=== PATIENT | male | born 1960 | race Caucasian/White ===

== ENCOUNTER → 2020-10-03 13:09 | Outpatient (BNVA) | payer OTHER, SELFPAY | PROVIDERS: PCP Nurse Practitioner Family; Visit Provider Orthopaedic Surgery | DX: M16.12 Unilateral primary osteoarthritis, left hip (principal) | CPT/HCPCS: 99212 ==

== ENCOUNTER → 2020-11-13 12:44 | Outpatient (BNVA) | payer OTHER, SELFPAY | PROVIDERS: PCP Nurse Practitioner Family; Visit Provider Orthopaedic Surgery | DX: Z01.812 Encounter for preprocedural laboratory examination (principal); Z01.810 Encounter for preprocedural cardiovascular examination ==

== ENCOUNTER 2020-12-08 16:46 | Emergency (ER) | payer OTHER, SELFPAY ==
[2020-12-08 16:51] VITALS: BP 171/96; PULSE 95; RESP 18; TEMP 36.8; O2SAT 98; BMI 22.7
--- NOTE | 2020-12-08 17:38 | PC.NURSE ---
PT APPROACHED THIS RN, REPORTED THE FB IN THROAT SUDDENLY PASSED AND HE FELT 100% RESOLVED, LEAVING WITHOUT TREATMENT.
== END 2020-12-08 17:39 | disposition left against medical advice (07) ==
PROVIDERS: Emergency Provider Emergency Medicine; PCP Nurse Practitioner Family
DX: R09.89 Other specified symptoms and signs involving the circulatory and respiratory systems (principal)
CPT/HCPCS: 99281; 99282

== ENCOUNTER → 2020-12-13 10:58 | Outpatient (BNVA) | payer OTHER, SELFPAY | PROVIDERS: Visit Provider Physician Assistant | DX: M25.552 Pain in left hip (principal); G89.29 Other chronic pain | CPT/HCPCS: 99212 ==

== ENCOUNTER 2020-12-16 13:11 | Outpatient (REF) | payer OTHER, SELFPAY ==
--- NOTE | ~2020-12-16 | XR_ITS ---
EXAMINATION: PELVIS AND LEFT HIP X-RAY CLINICAL INFORMATION: Pain COMPARISON: Previous x-ray was recent December 2019 TECHNIQUE: One view of the pelvis and 2 views of the left hip FINDINGS: There is severe left hip arthritis with joint space narrowing, osteophyte formation and subchondral cyst formation. There is mild arthritis at the right hip joint. Bones of the pelvis are unremarkable. There are degenerative changes of the lower lumbar spine. There is evidence of atherosclerotic disease. XR/XR pelvis 1-2V IMPRESSION: Severe left hip arthritis.
--- NOTE | ~2020-12-16 | XR_ITS ---
EXAMINATION: PELVIS AND LEFT HIP X-RAY CLINICAL INFORMATION: Pain COMPARISON: Previous x-ray was recent December 2019 TECHNIQUE: One view of the pelvis and 2 views of the left hip FINDINGS: There is severe left hip arthritis with joint space narrowing, osteophyte formation and subchondral cyst formation. There is mild arthritis at the right hip joint. Bones of the pelvis are unremarkable. There are degenerative changes of the lower lumbar spine. There is evidence of atherosclerotic disease. XR/XR hip LT min 2V IMPRESSION: Severe left hip arthritis.
== END 2020-12-16 13:12 | disposition home or self-care (01) ==
LOC: HO.HOSX 13:11
PROVIDERS: Visit Provider Orthopaedic Surgery
DX: Z01.818 Encounter for other preprocedural examination (principal); M16.11 Unilateral primary osteoarthritis, right hip
CPT/HCPCS: 72170; 73502

== ENCOUNTER 2020-12-17 06:02 | Inpatient (IN) | payer OTHER, SELFPAY ==
--- NOTE | 2020-11-14 10:10 | ECG_ITS ---
Test Reason : Z01.818 PREOP Blood Pressure : / mmHG Vent. Rate : 076 BPM Atrial Rate : 076 BPM P-R Int : 188 ms QRS Dur : 082 ms QT Int : 368 ms P-R-T Axes : 051 039 065 degrees QTc Int : 414 ms Normal sinus rhythm Normal ECG No previous ECGs available Referred By: Martin Harris Electronically Signed By:ERIN VOGEL MD
[2020-11-14 10:33] LABS: MANUAL DIFF FLAG NO
[2020-11-14 10:36] LABS: Basophils Percent Auto 0.4 % (0-2); Eosinophils Absolute Auto 0.2 X10*3/uL (0.0-0.4); Eosinophils Percent Auto 2.2 % (0-4); Hematocrit 36.7 % (42-52); Hemoglobin 12.5 g/dl (14.0-18.0); Imm Gran Abs Auto 0.01 X10*3/uL (0.00-0.03); Imm Gran Pct Auto 0.1 % (0.0-0.4); Lymphocytes Absolute Auto 2.7 X10*3/uL (1.2-4.9); Lymphocytes Percent Auto 37.6 % (20-40); Mean Corpuscular HGB Conc 34.1 g/dl (31.0-36.0); Mean Corpuscular Hemoglobin 35.9 pg (27.0-33.0); Mean Corpuscular Volume 105.5 fL (80-98); Mean Platelet Volume 9.3 fL (9.4-12.4); Monocytes Percent Auto 14.2 % (2-11); Neutrophils Absolute Auto 3.3 X10*3/uL (2.0-8.3); Neutrophils Percent Auto 45.5 % (45-73); Platelet Count 310 X10*3/uL (160-400); Red Blood Count 3.48 X10*6/uL (4.60-5.80); Red Cell Distribution Width 15.2 % (11.0-16.0); White Blood Count 7.2 X10*3/uL (4.8-10.8)
[2020-11-14 11:00] LABS: Anion Gap 13 (12-20); Blood Urea Nitrogen 11 mg/dL (9-16); Calcium 9.3 mg/dL (8.4-10.2); Carbon Dioxide 26 mmol/L (22-29); Chloride 102 mmol/L (96-108); Estimated Glomerular Filt Rate > 60; Glucose Random 109 mg/dL (60-115); Potassium 4.8 mmol/L (3.3-5.1); Sodium 136 mmol/L (135-145)
--- NOTE | 2020-12-13 10:55 | HO.ANESPROP2 ---
Documented by User: Roxann Leigh 12/16/20 08:19 HPI - Anesthesia Eval Consult details Narrative: 60yo M for Left Hip Total Replacement PCP clear h/o ETOH - quit heavy drinking 08/2020; currently drinking 1-3 drinks ~1 day per week glossitis - reasonable to proceed with surgery per ENT BP up at [facility]. Previous encounters with BP WNL. Pt reports pain with ambulation to appointment. NSAIDs not witheld, instructed no further NSAIDs. [facility] nurse to notify orthopedics. [facility] Active Problems Active Problems: All Active Problems (Updated 12/12/20 @ 16:28 by Nalini Mcdowell) Screening PSA (prostate specific antigen) (Acute) Tachycardia (Acute) Primary osteoarthritis of right hip (Acute) Chronic left hip pain (Acute) Pre-op evaluation (Acute) Past Medical History Medical History (Updated 12/13/20 @ 12:02 by Nalini Mcdowell) Anxiety COVID-19 vaccine series completed History of recent fall HTN (hypertension) Hx of concussion Tongue abnormality Use of cane as ambulatory aid Wears dentures Family History Family History Father No problems noted. Mother Cirrhosis Family history of problems with anesthesia: No Surgical History Surgical History History of arm fracture History of back surgery History of fracture of leg Hx of colonoscopy History of Problems with Anesthesia: No Social History Social History Are you a primary companion caregiver to a significant other at home: No Do you presently have visiting nurse or other home services: No Alcohol intake: current Alcohol intake frequency: other Patient Tobacco Use Status: Current everyday Tobacco user Tobacco use type: Cigarette Cigarette Packs Per Day: 1.5 Cigarettes Per Day: 30.0 Years Smoked: 46 Smoked in Last 30 Days: Yes Patient Interested in Nicotine Replacement: Yes Patient Given Instructions on How to Stop Smoking: Yes Date Education Initiated: 12/13/20 Second Hand Smoke Exposure: No Use of substances other than those prescribed or required for medical reasons: No Have you been hit, kicked, punched, or otherwise hurt by someone within the past year? If so, by whom?: No Spiritual Healthcare Practices: none Gnosticist Healthcare Practices: none Cultural Healthcare Practices: none Are you DNR?: No Advance Directives: No Advance Directives Information Provided: No Advance Directives on File: No Recently lost weight without trying: Yes How much weight loss: 2-13 pounds Eating poorly because of decreased appetite: Yes Nutrition screen score: 4 Nutrition Risks: Difficulty chewing Poor oral hygiene: Yes (new full dentures upper and lower needs adjustment) Narrative Narrative: No recent illness. Activity limited to pain. No CP/SOB with short walks, minimal yardwork. Meds Allergies Allergy/AdvReac Type Severity Reaction Status Date / Time No Known Allergies Allergy Verified 12/13/20 11:07 Home Medications Medication Instructions Recorded Confirmed Last Taken Type ibuprofen [Advil] 200 mg PO DAILY@1200 12/13/20 12/13/20 Unknown History ibuprofen [Advil] 400 mg PO DAILY@0630 12/13/20 12/13/20 Unknown History Exam Exam Date and Time: December 13, 2020 1055 Pertinent Lab Results Pertinent Lab Results: Laboratory Tests 11/14/20 11/14/20 10:07 10:07 WBC 7.2 RBC 3.48 L Hgb 12.5 L Hct 36.7 L MCV 105.5 H MCH 35.9 H MCHC 34.1 RDW 15.2 Plt Count 310 MPV 9.3 L Immature Gran % (Auto) 0.1 Neut % (Auto) 45.5 Lymph % (Auto) 37.6 [place] % (Auto) 14.2 H Eos % (Auto) 2.2 Baso % (Auto) 0.4 Lymph # (Auto) 2.7 [place] # (Auto) 1.0 Eos # (Auto) 0.2 Baso # (Auto) 0.0 Abs Immat Gran (auto) 0.01 Absolute Neuts (auto) 3.3 Absolute Nucleated RBC 0.000 Nucleated RBC % (auto) 0.0 Sodium 136 Potassium 4.8 Chloride 102 Carbon Dioxide 26 Anion Gap 13 BUN 11 Creatinine 0.68 Estim Creat Clear Calc TNP Estimated GFR > 60 Random Glucose 109 Calcium 9.3 Lab Results 11/14/20 11/14/20 12/13/20 Range/Units 10:07 10:07 12:30 WBC 7.2 (4.8-10.8) X10*3/uL RBC 3.48 L (4.60-5.80) X10*6/uL Hgb 12.5 L (14.0-18.0) g/dl Hct 36.7 L (42-52) % MCV 105.5 H (80-98) fL MCH 35.9 H (27.0-33.0) pg MCHC 34.1 (31.0-36.0) g/dl RDW 15.2 (11.0-16.0) % Plt Count 310 (160-400) X10*3/uL MPV 9.3 L (9.4-12.4) fL Immature Gran % (Auto) 0.1 (0.0-0.4) % Neut % (Auto) 45.5 (45-73) % Lymph % (Auto) 37.6 (20-40) % [place] % (Auto) 14.2 H (2-11) % Eos % (Auto) 2.2 (0-4) % Baso % (Auto) 0.4 (0-2) % Lymph # (Auto) 2.7 (1.2-4.9) X10*3/uL [place] # (Auto) 1.0 (0.1-1.2) X10*3/uL Eos # (Auto) 0.2 (0.0-0.4) X10*3/uL Baso # (Auto) 0.0 (0.0-0.2) X10*3/uL Abs Immat Gran (auto) 0.01 (0.00-0.03) X10*3/uL Absolute Neuts (auto) 3.3 (2.0-8.3) X10*3/uL Absolute Nucleated RBC 0.000 (0.0-0.012) X10*3/uL Nucleated RBC % (auto) 0.0 (0.0-0.2) /100WBC Sodium 136 (135-145) mmol/L Potassium 4.8 (3.3-5.1) mmol/L Chloride 102 (96-108) mmol/L Carbon Dioxide 26 (22-29) mmol/L Anion Gap 13 (12-20) BUN 11 (9-16) mg/dL Creatinine 0.68 (0.5-1.4) mg/dL Estim Creat Clear Calc TNP Estimated GFR > 60 Random Glucose 109 (60-115) mg/dL Calcium 9.3 (8.4-10.2) mg/dL Nasal Screen MRSA (PCR) NEGATIVE (Negative) Nasal S. aureus Screen NEGATIVE (Negative) Nasal MRSA/S.aureus Interp SEE NOTE Blood Type Antibody Screen 12/13/20 Range/Units 13:10 WBC (4.8-10.8) X10*3/uL RBC (4.60-5.80) X10*6/uL Hgb (14.0-18.0) g/dl Hct (42-52) % MCV (80-98) fL MCH (27.0-33.0) pg MCHC (31.0-36.0) g/dl RDW (11.0-16.0) % Plt Count (160-400) X10*3/uL MPV (9.4-12.4) fL Immature Gran % (Auto) (0.0-0.4) % Neut % (Auto) (45-73) % Lymph % (Auto) (20-40) % [place] % (Auto) (2-11) % Eos % (Auto) (0-4) % Baso % (Auto) (0-2) % Lymph # (Auto) (1.2-4.9) X10*3/uL [place] # (Auto) (0.1-1.2) X10*3/uL Eos # (Auto) (0.0-0.4) X10*3/uL Baso # (Auto) (0.0-0.2) X10*3/uL Abs Immat Gran (auto) (0.00-0.03) X10*3/uL Absolute Neuts (auto) (2.0-8.3) X10*3/uL Absolute Nucleated RBC (0.0-0.012) X10*3/uL Nucleated RBC % (auto) (0.0-0.2) /100WBC Sodium (135-145) mmol/L Potassium (3.3-5.1) mmol/L Chloride (96-108) mmol/L Carbon Dioxide (22-29) mmol/L Anion Gap (12-20) BUN (9-16) mg/dL Creatinine (0.5-1.4) mg/dL Estim Creat Clear Calc Estimated GFR Random Glucose (60-115) mg/dL Calcium (8.4-10.2) mg/dL Nasal Screen MRSA (PCR) (Negative) Nasal S. aureus Screen (Negative) Nasal MRSA/S.aureus Interp Blood Type A Negative Antibody Screen NEGATIVE Narrative Narrative: EKG 10/2020 Vent. Rate : 076 BPM Atrial Rate : 076 BPM P-R Int : 188 ms QRS Dur : 082 ms QT Int : 368 ms P-R-T Axes : 051 039 065 degrees QTc Int : 414 ms Normal sinus rhythm Normal ECG No previous ECGs available Airway Mallampati Class: II (Glossitis on tongue. No obstruction of airway.) TM Dist: >3cm Neck ROM: Full Denture: Upper and Lower Heart: RRR Lungs: CTAB Assessment and Plan Assessment Anesthesia Assessment: Anesthesia Plan Discussed, Smoking Cess. Discussed and PAT Visit Documented by User: Jerson Hinojosa MD 12/17/20 08:22 [facility] Past Medical History Medical History (Updated 12/13/20 @ 12:02 by Nalini Mcdowell) Anxiety COVID-19 vaccine series completed History of recent fall HTN (hypertension) Hx of concussion Tongue abnormality Use of cane as ambulatory aid Wears dentures Family History Family History Father No problems noted. Mother Cirrhosis Surgical History Surgical History History of arm fracture History of back surgery History of fracture of leg Hx of colonoscopy Social History Social History Are you a primary companion caregiver to a significant other at home: No Do you presently have visiting nurse or other home services: No Alcohol intake: current Alcohol intake frequency: other Patient Tobacco Use Status: Current everyday Tobacco user Tobacco use type: Cigarette Cigarette Packs Per Day: 1.5 Cigarettes Per Day: 30.0 Years Smoked: 46 Smoked in Last 30 Days: Yes Patient Interested in Nicotine Replacement: Yes Patient Given Instructions on How to Stop Smoking: Yes Date Education Initiated: 12/13/20 Second Hand Smoke Exposure: No Use of substances other than those prescribed or required for medical reasons: No Have you been hit, kicked, punched, or otherwise hurt by someone within the past year? If so, by whom?: No Spiritual Healthcare Practices: none Gnosticist Healthcare Practices: none Cultural Healthcare Practices: none Are you DNR?: No Advance Directives: No Advance Directives Information Provided: No Advance Directives on File: No Recently lost weight without trying: Yes How much weight loss: 2-13 pounds Eating poorly because of decreased appetite: Yes Nutrition screen score: 4 Nutrition Risks: Difficulty chewing Poor oral hygiene: Yes (new full dentures upper and lower needs adjustment) Meds Allergies Allergy/AdvReac Type Severity Reaction Status Date / Time No Known Allergies Allergy Verified 12/13/20 11:07 Home Medications Medication Instructions Recorded Confirmed Last Taken Type ibuprofen [Advil] 200 mg PO DAILY@1200 12/13/20 12/13/20 Unknown History ibuprofen [Advil] 400 mg PO DAILY@0630 12/13/20 12/13/20 Unknown History Assessment and Plan Assessment Anesthesia Assessment: Anesthesia Plan Discussed and Chart Reviewed Final Anesthetic Review NPO: Yes ASA Class: III Final Preanesthetic Review: No Changes in Pt Med Stat, Meds/Allgs Chart Reviewed, Consent Obtained/Reviewed and Anes Risks/Benef Reviewed Patient Risk: Intermediate Procedure Risk: Low Anesthetic Plan Anesthetic Plan: GA and Regional Block Disposition: Standard PACU
[2020-12-13 11:48] VITALS: BP 166/91; PULSE 89; RESP 16; O2SAT 97; BMI 22.2
[2020-12-13 14:20] LABS: MRSA Nasal PCR NEGATIVE (Negative); SA Nasal PCR NEGATIVE (Negative)
[2020-12-17] VITALS (16 sets, daily range): BP systolic 104–167; BP diastolic 69–104; PULSE 63–99; RESP 6–20; TEMP 36.2–36.9; O2SAT 94–100
--- NOTE | ~2020-12-17 | XR_ITS ---
EXAMINATION: XR PELVIS CLINICAL INFORMATION: Post left hip arthroplasty COMPARISON: Preoperative x-ray from yesterday TECHNIQUE: AP view of the pelvis. FINDINGS: There is a new left hip replacement in satisfactory position. No fracture or dislocation is seen. There are postoperative changes to the soft tissues. There is mild arthritis at the right hip joint. Bones of the visualized pelvis are unremarkable. There are degenerative changes visualized lower lumbar spine. XR/XR pelvis 1-2V IMPRESSION: Satisfactory appearance of left hip replacement.
[2020-12-17] MEDS: oxyCODONE HCl ER 10 MG TAB.ER.12H PO ×2 (06:22→20:26)
[2020-12-17 06:38] LABS: COVID-19 Test Negative (Negative)
[2020-12-17] MEDS: Lactated Ringers 1,000 ML 80 ML IVCONT (07:01)
--- NOTE | 2020-12-17 07:26 | PC.NURSE ---
timeout at 0724 pt verbalized understanding of plan of care pwd
--- NOTE | 2020-12-17 07:27 | MHC.SHP ---
Pre-Procedural Eval Section A The patient is an INPATIENT: No Changes since office visit: Yes Patient answered all questions; No Cold of Flu in the past 2 weeks, No New Medical Problems and No Changes in Medication The History & Physical has been completed within 30 days and I have reviewed it.: Yes Section B Chief Complaint: Left Total Hip Arthroplasty Allergies: Allergies Allergy/AdvReac Type Severity Reaction Status Date / Time No Known Allergies Allergy Verified 12/13/20 11:07 Plan I have reviewed the history and physical and performed a pertinent physical examination on my patient. No changes have occurred unless specified.
[2020-12-17] MEDS: HYDROmorphone HCl 0.5 MG/0.5 ML SYRINGE 0.25 MG IVPUSH ×5 (10:05→16:02)
[2020-12-17] MEDS: oxyCODONE HCl Immed Release 5 MG TABLET PO ×2 (10:18→18:45)
[2020-12-17] MEDS: Dextrose 5 % and 0.45 % NaCl 1,000 ML 80 ML IVCONT (12:34)
--- NOTE | 2020-12-17 14:03 | PM.OP ---
Brief Operative Note Date of Service: 12/17/20 Pre-op diagnosis: Left hip OA Post-op diagnosis: same Procedure: Left ARSENIO Implants: [place] trident2 54/20 deg Accolade2 #7 127 deg with 36+2.5 ceramic Surgeon: Martin Harris MD Anesthesia: GETA and regional Was an Drapery Hemmer Automatic used for this Procedure?: Yes Drapery Hemmer Automatic: Noemy Charles Estimated blood loss (mL): 250 IV fluids (mL): 1,000 Pathology: other Condition: stable Disposition: PACU
[2020-12-17] MEDS: ceFAZolin Sodium/Dextrose,Iso 2 GM/50 ML PIGGYBACK IV (14:10)
--- NOTE | 2020-12-17 15:19 | MHC.CM.PN ---
NURSE SCALE AND SKIP CAR OPERATOR NOTE ELECTRONIC MEDICAL RECORD REVIEWED ALONG WITH CASE DISCUSSED WITH STAFF NURSE AND PHYSICAL THERAPIST , MET WITH PATIENT WHOM REPORTS THAT HE IS RENTING A ROOM WITH SEPARATE BATHROOMS AT A FRIEND HOUSE, HE IS ACTIVE , INDEPENDENT IN ALL ADLS AND MOBILITY WITHOUT ANY DEVICES HE REPORTS TO THIS DIRECT MARKETING COORDINATOR THAT HE WAS ACTIVE DRINKER IN THE PAST WITH VODKA AND THEN SWITCHED OVER TO LIQUORS HE REPORTED HE Was drinking heavily after the of a friend but has cut down considerably since then and drinks only beers. he d3nied any history of alls, black out or seizures with not taking etoh, he did report that when he self quite the etoh he did have withdrawals. he continues to smoke about pack of ciagrettes daily. and requested a nicotine patch/.REVIEWED NURSING [facility] WITH HIM AND HE CHOSE THE [facility] he confirmed that he HAd a health care proxy , requested [facility]. discharge plan home with new referral to the [facility] , called to jazmyn requesting home physical theaRPY WITH ANTICIPATED DISCHARGE 1-2 DAYS PCP MIKEY HENDRICKS AT THE [facility] TO CALL FOR POST HOSPITAL DISCHARGE ORTHOPEDIC SURGICAL FOLLOW UP PER DISCHARGE INSTRUCTIONS TRANSPORTATION FAMILY/ FRIENDS
[2020-12-17] MEDS: Nicotine 21 MG PATCH.TD24 TRANSDERMA (15:57)
--- NOTE | 2020-12-17 17:44 | PM.IMCN ---
History of Present Illness Data of Consult Service Date: 12/17/20 <Caroline Mata NP - Last Filed: 12/17/20 18:31> Requesting physician: Martin Harris <Caroline Mata NP - Last Filed: 12/17/20 18:31> Primary Care Provider: DEYVI Loaiza <Caroline Mata NP - Last Filed: 12/17/20 18:31> HPI Reason for consult: MEDICAL MANAGEMENT <Caroline Mata NP - Last Filed: 12/17/20 18:31> 60-year-old man admitted by Orthopedic surgery and is status post left hip arthroplasty. Surgery was unremarkable. Vital signs are stable. Patient is currently resting in bed he does have a moderate amount of pain but no acute medical complaints. <Caroline Mata NP - Last Filed: 12/17/20 18:31> Review of Systems Review of Systems: Denies any recent fever chills or decrease in appetite respiratory denies any shortness of breath coverage production cardiovascular denies chest pain gastrointestinal denies any dysphagia abdominal pain nausea vomiting or diarrhea genitourinary denies any dysuria frequency or hematuria musculoskeletal Left hip burning neuropsych denies any weakness or seizures all other systems reviewed are negative <Caroline Mata NP - Last Filed: 12/17/20 18:31> [facility] Medical History: Medical History Anxiety COVID-19 vaccine series completed History of recent fall HTN (hypertension) Hx of concussion Tongue abnormality Use of cane as ambulatory aid Wears dentures <Caroline Mata NP - Last Filed: 12/17/20 18:31> Family History: Family History Father No problems noted. Mother Cirrhosis <Caroline Mata NP - Last Filed: 12/17/20 18:31> Surgical History: Surgical History History of arm fracture History of back surgery History of fracture of leg Hx of colonoscopy <Caroline Mata NP - Last Filed: 12/17/20 18:31> Social History: Social History Are you a primary health care recruiter to a significant other at home: No Do you presently have visiting nurse or other home services: No Alcohol intake: current Alcohol intake frequency: other Patient Tobacco Use Status: Current everyday Tobacco user Tobacco use type: Cigarette Cigarette Packs Per Day: 1.5 Cigarettes Per Day: 30.0 Years Smoked: 46 Smoked in Last 30 Days: Yes Patient Interested in Nicotine Replacement: Yes Patient Given Instructions on How to Stop Smoking: Yes Date Education Initiated: 12/13/20 Second Hand Smoke Exposure: No Use of substances other than those prescribed or required for medical reasons: No Currently Displaying Signs/Symptoms of Drug Intoxication Withdrawal: No Have you been hit, kicked, punched, or otherwise hurt by someone within the past year? If so, by whom?: No Spiritual Healthcare Practices: none Confucianism Healthcare Practices: none Cultural Healthcare Practices: none Are you DNR?: No Advance Directives: No Advance Directives Information Provided: No Advance Directives on File: No Do you have thoughts of harming others: None Do you have a plan to hurt others: No Plan Recently lost weight without trying: Yes How much weight loss: 2-13 pounds Eating poorly because of decreased appetite: Yes Nutrition screen score: 4 Nutrition Risks: Difficulty chewing Poor oral hygiene: Yes (new full dentures upper and lower needs adjustment) service: No Current occupational status: retired <Caroline Mata NP - Last Filed: 12/17/20 18:31> Meds Allergies/Adverse reactions: Allergies Allergy/AdvReac Type Severity Reaction Status Date / Time No Known Allergies Allergy Verified 12/13/20 11:07 <Caroline Mata NP - Last Filed: 12/17/20 18:31> Active Medications: Current Medications Generic Name Dose Route Start Last Admin Trade Name Freq PRN Reason Stop Dose Admin Acetaminophen 650 mg 12/17/20 12:14 Acetaminophen 325 Mg Tablet PO Q6H PRN Pain, Mild (Pain Scale 1-3) Celecoxib 200 mg 12/17/20 21:00 Celecoxib 200 Mg Capsule PO BID DAMIÁN Docusate Sodium 100 mg 12/17/20 21:00 Docusate Sodium 100 Mg Capsule PO BID DAMIÁN Hydromorphone HCl 0.25 mg 12/17/20 12:14 12/17/20 16:02 Hydromorphone Hcl 0.5 Mg/0.5 Ml Syringe IVPUSH 0.25 mg Q4H PRN Administration Pain, Severe (Pain Scale 7-10) Dextrose/Sodium Chloride 1,000 mls @ 80 mls/hr 12/17/20 12:14 12/17/20 12:34 D51/2ns IVCONT 80 mls/hr .[id number] DAMIÁN Administration Naloxone HCl 0.2 mg 12/17/20 12:14 Naloxone Hcl 0.4 Mg/Ml Vial IVPUSH Q2M PRN Excessive sedation or RR < 8 Nicotine 21 mg 12/17/20 16:00 12/17/20 15:57 Nicotine 21 Mg Patch.Td24 TRANSDERMA 21 mg DAILY DAMIÁN Administration Ondansetron HCl 4 mg 12/17/20 12:14 Ondansetron Hcl 4 Mg/2 Ml Vial IVPUSH Q8H PRN Nausea and Vomiting Oxycodone HCl 5 mg 12/17/20 12:14 Oxycodone Hcl Immed Release 5 Mg Tablet PO Q4H PRN Pain, Moderate (Pain Scale 4-6 Oxycodone HCl 10 mg 12/17/20 21:00 Oxycodone Hcl Er 10 Mg Tab.Er.12h PO BID DAMIÁN Sodium Chloride 3 ml 12/17/20 16:00 12/17/20 15:06 0.9 % Sodium Chloride Flush 3 Ml Syringe IVFLUSH Not Given QSHIFT DAMIÁN <Caroline Mata NP - Last Filed: 12/17/20 18:31> Home medications: Home Medications Medication Instructions Recorded Confirmed Last Taken Type ibuprofen [Advil] 200 mg PO DAILY@1200 12/13/20 12/13/20 Unknown History ibuprofen [Advil] 400 mg PO DAILY@0630 12/13/20 12/13/20 Unknown History <Caroline Mata NP - Last Filed: 12/17/20 18:31> Physical Exam Vital Signs and Narrative: Vital Signs: Last Vital Signs Temp 97.5 F 12/17/20 15:21 Pulse 89 12/17/20 15:21 Resp 20 12/17/20 15:21 BP 116/76 12/17/20 15:21 Pulse Ox 99 12/17/20 15:21 Body Mass Index 22.2 <Caroline Mata NP - Last Filed: 12/17/20 18:31> Appearing in no acute distress head is normocephalic atraumatic eyes pupils are PERRLA sclera is anicteric mouth throat mucous membranes are intact and moist neck is supple no lymphadenopathy, no JVD noted lung sounds are clear to auscultation heart regular rate rhythm, clear S1, S2 positive bowel sounds, abdomen is soft, nontender neuro patient is alert x3, no focal deficits MSK left hip surgical dressing, incision not visualized <Caroline Mata NP - Last Filed: 12/17/20 18:31> Results Labs CBC and Chem 7: : 11/14/20 10:07 11/14/20 10:07 <Caroline Mata NP - Last Filed: 12/17/20 18:31> Labs: Laboratory Results - last 24 hr 12/17/20 06:10 COVID-19 (ISMAEL) Negative COVID-19 Clin Com See Note <Caroline Mata NP - Last Filed: 12/17/20 18:31> Imaging Radiologist's Impressions: Impressions Pelvis X-Ray 12/17/20 07:42 IMPRESSION: Satisfactory appearance of left hip replacement. <Caroline Mata NP - Last Filed: 12/17/20 18:31> Assessment and Plan (1) Primary osteoarthritis of right hip: Status: Acute <Caroline Mata NP - Last Filed: 12/17/20 18:31> 60-year-old man admitted by Orthopedic surgery and is status post left total hip arthroplasty. Left total hip arthroplasty. Management as per surgical team -pain management -physical therapy Gout. Recent exacerbation to right ankle no flare this time - monitor Smoker - discussed importance of smoking cessation - nicotine replacement DVT prophylaxis mechanical compression boots as per surgical team attending-Dr. Canseco full code <Caroline Mata NP - Last Filed: 12/17/20 18:31>
[2020-12-17] MEDS: Acetaminophen 325 MG TABLET 650 MG PO (18:44)
[2020-12-17] MEDS: Celecoxib 200 MG CAPSULE PO (20:25)
[2020-12-17] MEDS: Docusate Sodium 100 MG CAPSULE PO (20:26)
[2020-12-18] VITALS (9 sets, daily range): BP systolic 124–152; BP diastolic 78–93; PULSE 88–109; RESP 17–20; TEMP 36.4–37.5; O2SAT 96–100
[2020-12-18] MEDS: HYDROmorphone HCl 0.5 MG/0.5 ML SYRINGE IVPUSH ×4 (01:45→19:35)
[2020-12-18] MEDS: Dextrose 5 % and 0.45 % NaCl 1,000 ML 80 ML IVCONT ×2 (01:45→14:26)
[2020-12-18 06:22] LABS: Basophils Percent Auto 0.2 % (0-2); Eosinophils Percent Auto 0.2 % (0-4); Hematocrit 35.2 % (42-52); Hemoglobin 12.2 g/dl (14.0-18.0); Imm Gran Abs Auto 0.07 X10*3/uL (0.00-0.03); Imm Gran Pct Auto 0.5 % (0.0-0.4); Lymphocytes Absolute Auto 2.5 X10*3/uL (1.2-4.9); MANUAL DIFF FLAG SCAN; Mean Corpuscular HGB Conc 34.7 g/dl (31.0-36.0); Mean Corpuscular Hemoglobin 34.4 pg (27.0-33.0); Mean Corpuscular Volume 99.2 fL (80-98); Mean Platelet Volume 8.9 fL (9.4-12.4); Monocytes Absolute Auto 1.7 X10*3/uL (0.1-1.2); Neutrophils Absolute Auto 8.7 X10*3/uL (2.0-8.3); Neutrophils Percent Auto 67.1 % (45-73); Platelet Count 255 X10*3/uL (160-400); Red Blood Count 3.55 X10*6/uL (4.60-5.80); Red Cell Distribution Width 14.2 % (11.0-16.0); SCAN SMEAR FLAG 1
[2020-12-18 06:40] LABS: SLIDE REVIEW VERIFIED
[2020-12-18 06:53] LABS: Blood Urea Nitrogen 10 mg/dL (9-16); Calcium 8.6 mg/dL (8.4-10.2); Creatinine Clr Calc Pharmacy 103.9; Estimated Glomerular Filt Rate > 60; Glucose Fasting 128 mg/dL (60-99)
[2020-12-18 06:58] LABS: Anion Gap 14 (12-20); Carbon Dioxide 22 mmol/L (22-29); Chloride 103 mmol/L (96-108); Potassium 3.8 mmol/L (3.3-5.1); Sodium 135 mmol/L (135-145)
[2020-12-18] MEDS: Docusate Sodium 100 MG CAPSULE PO ×2 (07:25→20:11)
[2020-12-18] MEDS: Nicotine 21 MG PATCH.TD24 TRANSDERMA (07:26)
[2020-12-18] MEDS: oxyCODONE HCl ER 10 MG TAB.ER.12H PO ×2 (07:27→20:11)
[2020-12-18] MEDS: Celecoxib 200 MG CAPSULE PO ×2 (07:27→20:11)
--- NOTE | 2020-12-18 07:45 | PM.PNORT ---
Subjective Subjective Date of Service: 12/18/20 Interval history: POD1 s/p left total hip arthroplasty with Dr. Harris. Patient is resting comfortably in bed. Pain is well managed. No overnight events. No additional complaints. Physical Exam Vital Signs: Vital Signs: Last Vital Signs Temp 99.5 F 12/18/20 03:43 Pulse 96 12/18/20 03:43 Resp 18 12/18/20 03:43 BP 146/93 H 12/18/20 03:43 Pulse Ox 98 12/18/20 03:43 Body Mass Index 22.2 Const: General: cooperative, healthy appearing and no acute distress Resp: Effort & Inspection: normal respiratory effort and able to speak in complete sentences Cardio: Rate: regular rate Peripheral pulses: Peripheral pulses 2+ throughout GI: Palpation (GI): Soft to palpation Skin: Lesions: no lesions Rashes: no rashes Extrem: Other: Left hip no ecchymopsis, redness, or drainage. Aquacel dressing is clean. dryl and intact. Nerve block still in effect. Patient can dorsiflex and plantarflex. Progress Note: A&P Assessment and plan (1) Status post total hip replacement, left: Status: Acute Assessment and Plan: Continue pain mgmnt Begin Lovenox for dvt ppx begin PT for left ARSENIO Dispo planning-Pending PT eval, pain mgmnt Fall Risk Details Current Medications: Current Medications Generic Name Dose Route Start Last Admin Trade Name Freq PRN Reason Stop Dose Admin Acetaminophen 650 mg 12/17/20 12:14 12/17/20 18:44 Acetaminophen 325 Mg Tablet PO 650 mg Q6H PRN Administration Pain, Mild (Pain Scale 1-3) Celecoxib 200 mg 12/17/20 21:00 12/18/20 07:27 Celecoxib 200 Mg Capsule PO 200 mg BID DAMIÁN Administration Docusate Sodium 100 mg 12/17/20 21:00 12/18/20 07:25 Docusate Sodium 100 Mg Capsule PO 100 mg BID DAMIÁN Administration Hydromorphone HCl 0.5 mg 12/17/20 18:24 12/18/20 07:22 Hydromorphone Hcl 0.5 Mg/0.5 Ml Syringe IVPUSH 0.5 mg Q4H PRN Administration Pain, Severe (Pain Scale 7-10) Dextrose/Sodium Chloride 1,000 mls @ 80 mls/hr 12/17/20 12:14 12/18/20 01:45 D51/2ns IVCONT 80 mls/hr .[id number] DAMIÁN Administration Naloxone HCl 0.2 mg 12/17/20 12:14 Naloxone Hcl 0.4 Mg/Ml Vial IVPUSH Q2M PRN Excessive sedation or RR < 8 Nicotine 21 mg 12/17/20 16:00 12/18/20 07:26 Nicotine 21 Mg Patch.Td24 TRANSDERMA 21 mg DAILY DAMIÁN Administration Ondansetron HCl 4 mg 12/17/20 12:14 Ondansetron Hcl 4 Mg/2 Ml Vial IVPUSH Q8H PRN Nausea and Vomiting Oxycodone HCl 5 mg 12/17/20 12:14 12/17/20 18:45 Oxycodone Hcl Immed Release 5 Mg Tablet PO 5 mg Q4H PRN Administration Pain, Moderate (Pain Scale 4-6 Oxycodone HCl 10 mg 12/17/20 21:00 12/18/20 07:27 Oxycodone Hcl Er 10 Mg Tab.Er.12h PO 10 mg BID DAMIÁN Administration Sodium Chloride 3 ml 12/17/20 16:00 12/18/20 07:27 0.9 % Sodium Chloride Flush 3 Ml Syringe IVFLUSH Not Given QSHIFT DAMIÁN Time Spent With Patient Time: Total time spent is greater than 50% in coordination of care (as documented) at patient's floor/unit and/or counseling patient: Time with patient: less than 15 minutes Procedures Date of Service Date of Service: 12/18/20 Quality Stroke Does the patient have a stroke diagnosis?: No VTE Prior VTE?: No VTE Risk Level:: Surgical - high VTE Device Contraindication: N/A - Device Ordered VTE Drug Contraindication: N/A - Med Ordered
--- NOTE | 2020-12-18 07:51 | PM.PNORT ---
Subjective Subjective Date of Service: 12/18/20 Interval history: POD1 s/p LTHA with Dr. Harris. No overnight events. Patient is resting comfortably in bed. Pain is well managed. No additional complaints. Physical Exam Vital Signs: Vital Signs: Last Vital Signs Temp 99.5 F 12/18/20 03:43 Pulse 96 12/18/20 03:43 Resp 18 12/18/20 03:43 BP 146/93 H 12/18/20 03:43 Pulse Ox 98 12/18/20 03:43 Body Mass Index 22.2 Const: General: cooperative, healthy appearing and no acute distress Resp: Effort & Inspection: normal respiratory effort and able to speak in complete sentences Cardio: Rate: regular rate Peripheral pulses: Peripheral pulses 2+ throughout GI: Palpation (GI): Soft to palpation Skin: Lesions: no lesions Rashes: no rashes Extrem: Other: Left hip Progress Note: A&P Fall Risk Details Current Medications: Current Medications Generic Name Dose Route Start Last Admin Trade Name Freq PRN Reason Stop Dose Admin Acetaminophen 650 mg 12/17/20 12:14 12/17/20 18:44 Acetaminophen 325 Mg Tablet PO 650 mg Q6H PRN Administration Pain, Mild (Pain Scale 1-3) Celecoxib 200 mg 12/17/20 21:00 12/18/20 07:27 Celecoxib 200 Mg Capsule PO 200 mg BID DAMIÁN Administration Docusate Sodium 100 mg 12/17/20 21:00 12/18/20 07:25 Docusate Sodium 100 Mg Capsule PO 100 mg BID DAMIÁN Administration Enoxaparin Sodium 40 mg 12/18/20 07:45 Enoxaparin Sodium 40 Mg/0.4 Ml Syringe SUBCUT Q24H DAMIÁN Hydromorphone HCl 0.5 mg 12/17/20 18:24 12/18/20 07:22 Hydromorphone Hcl 0.5 Mg/0.5 Ml Syringe IVPUSH 0.5 mg Q4H PRN Administration Pain, Severe (Pain Scale 7-10) Dextrose/Sodium Chloride 1,000 mls @ 80 mls/hr 12/17/20 12:14 12/18/20 01:45 D51/2ns IVCONT 80 mls/hr .[id number] DAMIÁN Administration Naloxone HCl 0.2 mg 12/17/20 12:14 Naloxone Hcl 0.4 Mg/Ml Vial IVPUSH Q2M PRN Excessive sedation or RR < 8 Nicotine 21 mg 12/17/20 16:00 12/18/20 07:26 Nicotine 21 Mg Patch.Td24 TRANSDERMA 21 mg DAILY DAMIÁN Administration Ondansetron HCl 4 mg 12/17/20 12:14 Ondansetron Hcl 4 Mg/2 Ml Vial IVPUSH Q8H PRN Nausea and Vomiting Oxycodone HCl 5 mg 12/17/20 12:14 12/17/20 18:45 Oxycodone Hcl Immed Release 5 Mg Tablet PO 5 mg Q4H PRN Administration Pain, Moderate (Pain Scale 4-6 Oxycodone HCl 10 mg 12/17/20 21:00 12/18/20 07:27 Oxycodone Hcl Er 10 Mg Tab.Er.12h PO 10 mg BID DAMIÁN Administration Sodium Chloride 3 ml 12/17/20 16:00 12/18/20 07:27 0.9 % Sodium Chloride Flush 3 Ml Syringe IVFLUSH Not Given QSHIFT DAMIÁN Time Spent With Patient Time: Total time spent is greater than 50% in coordination of care (as documented) at patient's floor/unit and/or counseling patient: Quality Stroke Does the patient have a stroke diagnosis?: No VTE Prior VTE?: No VTE Risk Level:: Surgical - high VTE Device Contraindication: N/A - Device Ordered VTE Drug Contraindication: N/A - Med Ordered
[2020-12-18] MEDS: Enoxaparin Sodium 40 MG/0.4 ML SYRINGE SUBCUT (08:43)
[2020-12-18] MEDS: oxyCODONE HCl Immed Release 5 MG TABLET PO (10:27)
--- NOTE | 2020-12-18 13:23 | MHC.CM.PN ---
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 DISCHARGE PLAN HOME WITH NEW REFERRAL TO THE [facility] FOR HOME PHYSICAL THERAPY ONLY PCP PATIENT INSTRUCTED TO CALL HIS PCP FOR POST HOSPITAL DISCHARGE FOLLOW UP ORTHOPEDIC SURGICAL FOLLOW UP PER DISCHARGE INSTRUCTIONS TRANSPORTATION FAMILY/FRIENDS
--- NOTE | 2020-12-18 15:15 | HO.PM.IMPN ---
Subjective Subjective Date of Service: 12/18/20 Interval History: post op pain controlled no chest pain no dyspnea no gout flare Physical Exam Vital Signs: Vital Signs: Last Vital Signs Temp 97.6 F 12/18/20 11:51 Pulse 99 12/18/20 13:13 Resp 18 12/18/20 11:51 BP 124/78 12/18/20 13:13 Pulse Ox 96 12/18/20 13:13 Body Mass Index 22.2 Gen: in no acute distress HEENT: sclera anicteric, moist mucus membranes Neck: supple Lungs: clear to auscultation bilaterally Heart: regular rate and rhythm, no murmurs Abd: soft, non-tender, non-distended Ext: no edema Skin: warm/well-perfused, L hip dressing clear Neuro: alert and oriented x3, no focal findings Psych: appropriate affect Objective Data Current Medications Generic Name Dose Route Start Last Admin Trade Name Freq PRN Reason Stop Dose Admin Acetaminophen 650 mg 12/17/20 12:14 12/17/20 18:44 Acetaminophen 325 Mg Tablet PO 650 mg Q6H PRN Administration Pain, Mild (Pain Scale 1-3) Celecoxib 200 mg 12/17/20 21:00 12/18/20 07:27 Celecoxib 200 Mg Capsule PO 200 mg BID DAMIÁN Administration Docusate Sodium 100 mg 12/17/20 21:00 12/18/20 07:25 Docusate Sodium 100 Mg Capsule PO 100 mg BID DAMIÁN Administration Enoxaparin Sodium 40 mg 12/18/20 07:45 12/18/20 08:43 Enoxaparin Sodium 40 Mg/0.4 Ml Syringe SUBCUT 40 mg Q24H DAMIÁN Administration Hydromorphone HCl 0.5 mg 12/17/20 18:24 12/18/20 14:23 Hydromorphone Hcl 0.5 Mg/0.5 Ml Syringe IVPUSH 0.5 mg Q4H PRN Administration Pain, Severe (Pain Scale 7-10) Dextrose/Sodium Chloride 1,000 mls @ 80 mls/hr 12/17/20 12:14 12/18/20 14:26 D51/2ns IVCONT 80 mls/hr .[id number] DAMIÁN Administration Naloxone HCl 0.2 mg 12/17/20 12:14 Naloxone Hcl 0.4 Mg/Ml Vial IVPUSH Q2M PRN Excessive sedation or RR < 8 Nicotine mg 12/17/20 16:00 12/18/20 07:26 Nicotine 21 Mg Patch.Td24 TRANSDERMA 21 mg DAILY DAMIÁN Administration Ondansetron HCl 4 mg 12/17/20 12:14 Ondansetron Hcl 4 Mg/2 Ml Vial IVPUSH Q8H PRN Nausea and Vomiting Oxycodone HCl 5 mg 12/17/20 12:14 12/18/20 10:27 Oxycodone Hcl Immed Release 5 Mg Tablet PO 5 mg Q4H PRN Administration Pain, Moderate (Pain Scale 4-6 Oxycodone HCl 10 mg 12/17/20 21:00 12/18/20 07:27 Oxycodone Hcl Er 10 Mg Tab.Er.12h PO 10 mg BID DAMIÁN Administration Sodium Chloride 3 ml 12/17/20 16:00 12/18/20 07:27 0.9 % Sodium Chloride Flush 3 Ml Syringe IVFLUSH Not Given QSHIFT [facility] Labs CBC & Chem 7: 12/18/20 06:02 12/18/20 06:02 Labs: Laboratory Results - last 24 hr 12/18/20 12/18/20 06:02 06:02 WBC 13.0 H RBC 3.55 L Hgb 12.2 L Hct 35.2 L MCV 99.2 H MCH 34.4 H MCHC 34.7 RDW 14.2 Plt Count 255 MPV 8.9 L Immature Gran % (Auto) 0.5 H Neut % (Auto) 67.1 Lymph % (Auto) 19.0 L [place]ck[place] % (Auto) 13.0 H Eos % (Auto) 0.2 Baso % (Auto) 0.2 Lymph # (Auto) 2.5 Bleckley # (Auto) 1.7 H Eos # (Auto) 0.0 Baso # (Auto) 0.0 Abs Immat Gran (auto) 0.07 H Absolute Neuts (auto) 8.7 H Absolute Nucleated RBC 0.000 Nucleated RBC % (auto) 0.0 Smear Tech's Comments VERIFIED Sodium 135 Potassium 3.8 D Chloride 103 Carbon Dioxide 22 Anion Gap 14 BUN 10 Creatinine 0.68 Estim Creat Clear Calc 103.9 Estimated GFR > 60 Fasting Glucose 128 H Calcium 8.6 D Quality Stroke Does the patient have a stroke diagnosis?: No VTE Prior VTE?: No VTE Risk Level:: Surgical - high VTE Device Contraindication: N/A - Device Ordered VTE Drug Contraindication: N/A - Med Ordered Assessment and Plan (1) Status post total hip replacement, left: Status: Acute (2) Gout: Status: Acute (3) Tobacco abuse: Status: Acute Assessment and Plan: 60yo M with HTN [not on meds], gout [not on uricosurics], tobacco abuse POD #1 R ARSENIO for OA medicine consultation for management of comorbid conditions # gout - monitor for flare # hx HTN - BP OK without medications # tobacco abuse - NRT # postop ARSENIO - LMWH for VTE ppx - pain control as per Ortho team - PT, dispo planning
--- NOTE | 2020-12-18 16:06 | HO.POSTANES ---
Post Anesthesia Evaluation Post Anesthesia Evaluation Vital Signs: Vital Signs Temp Pulse Resp BP Pulse Ox 12/18/20 15:27 98.7 F 101 H 20 152/82 H 97 12/18/20 13:13 99 124/78 96 12/18/20 11:51 97.6 F 99 18 124/78 96 12/18/20 08:09 102 H 132/86 97 12/18/20 08:00 98.7 F 102 H 17 132/86 97 Anesthesia: General Mental Status: Awake Nausea/Vomiting: None Hydration: Adequate Anesthesia-Related Issues: No Anes. Related Issues
[2020-12-19] MEDS: HYDROmorphone HCl 0.5 MG/0.5 ML SYRINGE IVPUSH (01:43)
[2020-12-19] MEDS: Dextrose 5 % and 0.45 % NaCl 1,000 ML 80 ML IVCONT (03:06)
[2020-12-19 03:20] VITALS: BP 139/86; PULSE 85; RESP 18; TEMP 36.4; O2SAT 99
[2020-12-19] MEDS: oxyCODONE HCl Immed Release 5 MG TABLET PO (04:54)
[2020-12-19 07:21] VITALS: BP 139/81; PULSE 101; RESP 17; TEMP 36.8; O2SAT 98
[2020-12-19] MEDS: Celecoxib 200 MG CAPSULE PO (07:47)
[2020-12-19] MEDS: oxyCODONE HCl ER 10 MG TAB.ER.12H PO (07:47)
[2020-12-19] MEDS: Enoxaparin Sodium 40 MG/0.4 ML SYRINGE SUBCUT (07:47)
[2020-12-19] MEDS: Docusate Sodium 100 MG CAPSULE PO (07:47)
[2020-12-19] MEDS: Nicotine 21 MG PATCH.TD24 TRANSDERMA (07:48)
[2020-12-19] MEDS: 0.9 % Sodium Chloride Flush 3 ML SYRINGE IVFLUSH (07:48)
[2020-12-19 07:54] LABS: Anion Gap 10 (12-20); Blood Urea Nitrogen 6 mg/dL (9-16); Calcium 8.6 mg/dL (8.4-10.2); Carbon Dioxide 25 mmol/L (22-29); Chloride 104 mmol/L (96-108); Creatinine Clr Calc Pharmacy 115.8; Estimated Glomerular Filt Rate > 60; Glucose Fasting 109 mg/dL (60-99); Potassium 4.1 mmol/L (3.3-5.1); Sodium 135 mmol/L (135-145)
[2020-12-19 08:57] VITALS: BP 139/81; PULSE 101; O2SAT 98
--- NOTE | 2020-12-19 09:00 | P.DS_ITS ---
DS: Providers Provider Date of Service: 12/19/20 Date of admission: 12/17/20 06:02 Primary care physician: GERONIMO Loaiza Consults: 12/17/20 12:14 Consult to Hospitalist Routine Consulting Provider: Hospitalist Reason For Exam: post op medical management DS: Diagnosis Discharge Diagnosis (1) Status post total hip replacement, left: Status: Acute DS: Medications Discharge Medications Home Medications: Previous Rx's Medication Instructions Recorded acetaminophen 650 mg PO Q6H PRN 30 Days tab 12/19/20 celecoxib 200 mg PO BID 30 Days #60 cap 12/19/20 docusate sodium 100 mg PO BID 30 Days #60 cap 12/19/20 enoxaparin 40 mg SUBCUT Q24H 42 Days #16.8 ml 12/19/20 oxycodone 5 mg PO Q4H PRN 7 Days #42 tab 12/19/20 DS: Summary Hospital Course Hospital Course: This is a 60-year-old gentleman who presented to the office with left hip pain. He was found have osteoarthritis of the left hip and after failing all conservative measures he continued to have difficulty with ambulation and daily activities therefore he consented to move forward with left total hip arthroplasty. The patient underwent a successful left total hip arthroplasty, was transferred to PACU and then to the floor to recover. During their stay, their vitals were stable, afebrile at 98.2. Labs were unremarkable, H/H 12.2/35.2. POD 1 he was started on Lovenox for DVT ppx, they also received services twice a day. Prior to discharge, their dressing was change, incision clean dry and intact, new Aquacel dressing applied and the plan was to be discharged home with VNA services Time Spent with Patient Time attestation: Total time spent providing and/or coordinating discharge services: Discharge coordination time: Less than 30 minutes Quality: Stroke Does the patient have a stroke diagnosis?: No Physical Exam Vital Signs: Vital Signs: Last Vital Signs Temp 98.2 F 12/19/20 07:21 Pulse 101 H 12/19/20 08:57 Resp 17 12/19/20 07:21 BP 139/81 12/19/20 08:57 Pulse Ox 98 12/19/20 08:57 Body Mass Index 22.2 Const: General: cooperative, healthy appearing and no acute distress Resp: Effort & Inspection: normal respiratory effort and able to speak in complete sentences Cardio: Rate: regular rate Peripheral pulses: Peripheral pulses 2+ throughout GI: Palpation (GI): Soft to palpation Skin: General skin exam: no rashes or lesions noted Extrem: Other: incision clean dry and intact. [place] intact. No erythema or effusion. Calf supple nontender. Neurovascularly intact. DS: Data Data Completed and Pending Completed studies during hospitalization [Text1]: Pending at discharge 12/17/20 09:30 Surgical [PTH] Routine Labs on day of discharge: Laboratory Results - last 24 hr 12/19/20 06:41 Sodium 135 Potassium 4.1 Chloride 104 Carbon Dioxide 25 Anion Gap 10 L BUN 6 L Creatinine 0.61 Estim Creat Clear Calc 115.8 Estimated GFR > 60 Fasting Glucose 109 H Calcium 8.6 Discharge Plan Discharge Patient Disposition: Home Health Service Discharge Diagnosis: RT ARSENIO Referrals: [facility] [Outside] - 1 Day (DISCHARGED HOME WITH NEW REFERRAL [facility] SUSAN ECDENO FOR NURSING FOR [place] LOVENOX [facility]IST[facility] PCP PAtient to call for follow up appointment post hospityla discharge transportation family/friends) Noemy Charles PA-C [Physician Investment Director] - None (01/02/21 12:45 [facility] Noemy Charles PA-C) Discharge Medications: New celecoxib 200 mg Capsule 200 mg PO BID 30 Days Qty: 60 RF: 0 acetaminophen 325 mg Tablet 650 mg PO Q6H PRN (Reason: Pain, Mild (Pain Scale 1-3)) 30 Days RF: 0 enoxaparin 40 mg/0.4 mL Syringe 40 mg subcut Q24H 42 Days Qty: 16.8 RF: 0 docusate sodium 100 mg Capsule 100 mg PO BID 30 Days Qty: 60 RF: 0 oxycodone 5 mg Tablet 5 mg PO Q4H PRN (Reason: Pain, Moderate (Pain Scale 4-6) 7 Days Qty: 42 RF: 0 Discontinued ibuprofen [Advil] 200 mg Tablet 200 mg PO DAILY@1200 RF: 0 ibuprofen [Advil] 200 mg Tablet 400 mg PO DAILY@0630 RF: 0 Discharge Orders: Discharge Order (Routine); Ordered 12/19/20 Ordered By: Noemy Charles Diet: regular diet Activity on Discharge: Use cane or walker Stand Alone Forms: Patient Portal Discharge page Care Plan Goals: Restore function of joint Health Concerns: none Plan of Treatment: Physical Therapy Pain management DVT prophylaxis Assessment: * Physical Therapy for Total hip arthroplasty: posterior precautions, gait training, ROM, strength * Limit stair climbing * No showering, no tub bath-keep dressing clean, dry and intact * No driving x6 weeks * Continue Lovenox once a day x 6 weeks * Follow up with [facility] in 2 weeks
--- NOTE | 2020-12-19 09:07 | MHC.CM.PN ---
PT CLEARED TO DC HOME TODAY WITH NEW REFERRAL TO [facility] FOR RESIDENTIAL AND PT. NA NOTIFIED OF DC VIA [employer] my eyes. PT WILL ARRANGE TRANSPORTATION
--- NOTE | 2020-12-19 11:14 | HO.PM.IMPN ---
Subjective Subjective Date of Service: 12/19/20 Interval History: no complaints, postop pain well-controlled, interested in continuing NRT upon d/c [planned later today] Physical Exam Vital Signs: Vital Signs: Last Vital Signs Temp 98.2 F 12/19/20 07:21 Pulse 101 H 12/19/20 08:57 Resp 17 12/19/20 07:21 BP 139/81 12/19/20 08:57 Pulse Ox 98 12/19/20 08:57 Body Mass Index 22.2 Gen: in no acute distress HEENT: sclera anicteric, moist mucus membranes Neck: supple Lungs: clear to auscultation bilaterally Heart: regular rate and rhythm, no murmurs Abd: soft, non-tender, non-distended Ext: no edema Skin: warm/well-perfused, L hip dressing clean Neuro: alert and oriented x3, no focal findings Psych: appropriate affect Objective Data Current Medications Generic Name Dose Route Start Last Admin Trade Name Freq PRN Reason Stop Dose Admin Acetaminophen 650 mg 12/17/20 12:14 12/17/20 18:44 Acetaminophen 325 Mg Tablet PO 650 mg Q6H PRN Administration Pain, Mild (Pain Scale 1-3) Celecoxib 200 mg 12/17/20 21:00 12/19/20 07:47 Celecoxib 200 Mg Capsule PO 200 mg BID DAMIÁN Administration Docusate Sodium 100 mg 12/17/20 21:00 12/19/20 07:47 Docusate Sodium 100 Mg Capsule PO 100 mg BID DAMIÁN Administration Enoxaparin Sodium 40 mg 12/18/20 07:45 12/19/20 07:47 Enoxaparin Sodium 40 Mg/0.4 Ml Syringe SUBCUT 40 mg Q24H DAMIÁN Administration Hydromorphone HCl 0.5 mg 12/17/20 18:24 12/19/20 01:43 Hydromorphone Hcl 0.5 Mg/0.5 Ml Syringe IVPUSH 0.5 mg Q4H PRN Administration Pain, Severe (Pain Scale 7-10) Dextrose/Sodium Chloride 1,000 mls @ 80 mls/hr 12/17/20 12:14 12/19/20 03:06 D51/2ns IVCONT 80 mls/hr .[id number] DAMIÁN Administration Naloxone HCl 0.2 mg 12/17/20 12:14 Naloxone Hcl 0.4 Mg/Ml Vial IVPUSH Q2M PRN Excessive sedation or RR < 8 Nicotine 21 mg 12/17/20 16:00 12/19/20 07:48 Nicotine 21 Mg Patch.Td24 TRANSDERMA 21 mg DAILY DAMIÁN Administration Ondansetron HCl 4 mg 12/17/20 12:14 Ondansetron Hcl 4 Mg/2 Ml Vial IVPUSH Q8H PRN Nausea and Vomiting Oxycodone HCl 5 mg 12/17/20 12:14 12/19/20 04:54 Oxycodone Hcl Immed Release 5 Mg Tablet PO 5 mg Q4H PRN Administration Pain, Moderate (Pain Scale 4-6 Oxycodone HCl 10 mg 12/17/20 21:00 12/19/20 07:47 Oxycodone Hcl Er 10 Mg Tab.Er.12h PO 10 mg BID DAMIÁN Administration Sodium Chloride 3 ml 12/17/20 16:00 12/19/20 07:48 0.9 % Sodium Chloride Flush 3 Ml Syringe IVFLUSH 3 ml QSHIFT DAMIÁN Administration Labs CBC & Chem 7: 12/18/20 06:02 12/19/20 06:41 Labs: Laboratory Results - last 24 hr 12/19/20 06:41 Sodium 135 Potassium 4.1 Chloride 104 Carbon Dioxide 25 Anion Gap 10 L BUN 6 L Creatinine 0.61 Estim Creat Clear Calc 115.8 Estimated GFR > 60 Fasting Glucose 109 H Calcium 8.6 Quality Stroke Does the patient have a stroke diagnosis?: No VTE Prior VTE?: No VTE Risk Level:: Surgical - high VTE Device Contraindication: N/A - Device Ordered VTE Drug Contraindication: N/A - Med Ordered Assessment and Plan (1) Status post total hip replacement, left: Status: Acute (2) Gout: Status: Acute (3) Tobacco abuse: Status: Acute Assessment and Plan: 60yo M with HTN [not on meds], gout [not on uricosurics], tobacco abuse POD #2 R ARSENIO for OA medicine consultation for management of comorbid conditions # gout - monitor for flare # hx HTN - BP OK without medications # tobacco abuse - NRT- will send Rx for home # postop ARSENIO - LMWH for VTE ppx - pain control as per Ortho team - PT, dispo planning
--- NOTE | 2020-12-19 17:23 | P.OP_ITS ---
Operative Note Operative Note Date of Service: 12/17/20 Narrative: Pre-op diagnosis: Left hip OA Post-op diagnosis: same Procedure: Left ARSENIO Implants: Jj trident2 54/20 deg Accolade2 #7 127 deg with 36+2.5 ceramic Surgeon: Martin Harris MD Anesthesia: GETA and regional Was an Agricultural Engineering Technician used for this Procedure?: Yes Agricultural Engineering Technician: Noemy Charles Estimated blood loss (mL): 250 IV fluids (mL): 1,000 Pathology: other Condition: stable Disposition: PACU Attending MD: Martin Harris Agricultural Engineering Technician: CHRIST Charles Pre-operative disgnosis: Left hip OA Post op diagnosis: same Procedure performed; Left ARSENIO Anesthesia: Blood loss: Fluids: Implants: Complications: Indications: Procedure in detail: Patient was brought into the operating room and placed in a right lateral decubitus position. All bony prominences were well padded and the limb was prepped and draped in standard sterile fashion. Time-out was called to identify proper site procedure proper surgeon IV antibiotics and 1 g of trans to make acid were administered. I began by making a curvilinear incision over the posterolateral aspect of the greater trochanter. Dissection was taken down to the tensor fascia which was incised in line with the incision and a Charnley retractor was placed. Hip was internally rotated and the external rotators were identified. The vessels were cauterized and a full-thickness capsular/external rotator layer was developed starting just proximal to the piriformis. Dull Hohmann retractor was placed underneath the neck in the hip was dislocated. The head and neck were deformed with osteophytosis. A neck cut was made 1 cm proximal to the lesser trochanter and the head and neck were removed and measured on the back table. Placed my anterior-posterior acetabular retractors and performed a labrectomy. I then sequentially reamed up to a size _ 54 __ and impacted the cup at approximately 45 degrees of inclination and 25 degrees of version. I then placed a 20 degree posterior lipped liner and turned my attention to the femur. All I used cautery to identify the piriformis start site and used this as a starting point for my januszie cutter. I then used a Charnley awl to identify the canal and a curved curette to remove the lateral bone. I then sequentially broached in the patient's natural version to a size _#7 127deg___ and placed my trial implants. He was short preoperatively and was stable as I took the hip through range of motion with a +0 head. I was satisfied with the stability and length. Therefore I removed all instrumentation copiously irrigated placed my final femoral implant. I again took the hip through range of motion and was satisfied with the stability and length and rain using a +2.5 head and so my final femoral head was placed. I then irrigated for 3 minutes with iodine and placed 1 g of local TXA. I then performed a capsular closure with FiberWire, William's fascia with 0 Vicryl, subcuticular with 2-0 vicryl and skin with richard. Patient was placed into a sterile dressing. Radiographs were obtained at the completion of the case and I was happy with the component position. Patient was extubated brought to the recovery room in stable condition.
== END 2020-12-19 11:00 | disposition home health service (06) | DRG 301 ==
LOC: HO.SSSA 06:04 → HO.S3 11:05
PROVIDERS: Physician Assistant; Admitting Provider Orthopaedic Surgery; PCP Nurse Practitioner Family; Visit Provider Orthopaedic Surgery
PROC: 0SRB0JA Replacement of Left Hip Joint with Synthetic Substitute, Uncemented, Open Approach (ICD-10-PCS; CPT 27130; principal; 2020-12-17 07:30)
DX: M16.12 Unilateral primary osteoarthritis, left hip (principal); F17.210 Nicotine dependence, cigarettes, uncomplicated; M10.9 Gout, unspecified; Z71.6 Tobacco abuse counseling; Z79.899 Other long term (current) drug therapy
CPT/HCPCS: 36415; 72170; 80048; 85025; 86850; 86900; 86901; 87635; 87640; 87641; 88304; 88305; 88311; 93005; 97110; 97116; 97162; 97165; 97535; C1776; J0131; J0690; J1100; J1170; J1650; J2250; J2405; J3010

== ENCOUNTER → 2021-01-02 12:21 | Outpatient (BNVA) | payer OTHER, SELFPAY | PROVIDERS: Visit Provider Physician Assistant | DX: Z96.642 Presence of left artificial hip joint (principal); M16.11 Unilateral primary osteoarthritis, right hip; I10 Essential (primary) hypertension; F17.210 Nicotine dependence, cigarettes, uncomplicated | CPT/HCPCS: 99202 ==

== ENCOUNTER 2021-01-16 09:40 | Outpatient (RCR) | payer OTHER, SELFPAY ==
--- NOTE | 2021-06-12 14:14 | MHC.PT.DC ---
[facility] [place] Office [place] [facility] [place] Office [address] Frances Duggan [address] [phone] F: [phone] F: [phone] F: [phone] F: [phone] Physical Therapy Discharge Report Diagnosis: L ARSENIO Date of Surgery: 12/17/20 Date of Evaluation: 01/16/21 Date of Discharge: 06/12/21 Treatments to Date: 1 Cancellations to Date: 2 No Shows to Date: 3 Discharge Status: Visit Non-compliance Discharge Summary: Rickie logged 2 cancellations and 3 no show appts after his evaluation with multiple calls. He was Dc'd per attendance policy. Electronically signed by: Matthias Joya PT. Please sign and return to therapist. Thank you for your referral.
== END 2021-06-12 14:15 | disposition home or self-care (01) ==
LOC: HO.PTCHIC 09:40
PROVIDERS: PCP Nurse Practitioner Family; Visit Provider Physician Assistant
DX: Z96.642 Presence of left artificial hip joint (principal)
CPT/HCPCS: 97110; 97161

== ENCOUNTER 2021-08-21 16:29 | Outpatient (REF) | payer OTHER, SELFPAY ==
--- NOTE | ~2021-08-21 | CT_ITS ---
EXAMINATION: CT CHEST SCREENING CLINICAL INFORMATION: Smoker. COMPARISON: CT chest 02/01/2020 TECHNIQUE: Multidetector volumetric CT imaging of the chest is performed without contrast using low dose technique. Additional 2D coronal and sagittal reformatted images and axial 3D maximum intensity projection (MIP) images are generated on the CT workstation. This CT examination was performed using dose optimization techniques as appropriate, variously including the following: *Automated exposure control *Adjustment of mA and/or kV according to patient size (this includes techniques or standardized protocols for targeted exams where dose is matched to indication/reason for exam; i.e. extremities or head) *Use of iterative reconstruction technique DLP: 46 mGy-cm FINDINGS: LUNGS: There is a new ground-glass nodule in the lingula axial image 36/4, 2 mm nodule in the right lower lobe axial image 38/4, better visualized on present exam. No acute consolidation, mass or atelectasis seen. MEDIASTINUM: The thyroid lobes are symmetric and normal. The central trachea and the bronchi are widely patent. There are small shotty lymph nodes in the pretracheal, precarinal space and aortic window. The heart size and pulmonary vascularity are normal. There are trace coronary artery calcifications present. There is no pericardial effusion. PLEURA: There is no pleural effusion. No pleural mass or thickening. AXILLA: No abnormal axillary lymph nodes seen. The chest wall is unremarkable. UPPER ABDOMEN: Visualized liver, spleen, pancreas and bilateral adrenal glands are unremarkable. OSSEOUS STRUCTURES: There is no lytic or sclerotic process seen. There is mild ventral spondylosis. CT/CT lung screening IMPRESSION: 2 new 2 mm pulmonary nodules. No abnormal mediastinal or hilar lymph nodes. ASSESSMENT: Lung-RADS category 2: Benign RECOMMENDATION: Low-dose annual CT chest.
== END 2021-08-21 16:30 | disposition home or self-care (01) ==
LOC: HO.CT 16:29
PROVIDERS: PCP Nurse Practitioner Family; Visit Provider Physician Assistant Medical
DX: Z12.2 Encounter for screening for malignant neoplasm of respiratory organs (principal); F17.200 Nicotine dependence, unspecified, uncomplicated
CPT/HCPCS: 71271

== ENCOUNTER → 2021-11-27 07:20 | Outpatient (BNVA) | payer MEDICARE, MEDICAID, SELFPAY | PROVIDERS: PCP Nurse Practitioner Family; Referring Provider Nurse Practitioner Family; Visit Provider Nurse Practitioner | DX: Z12.11 Encounter for screening for malignant neoplasm of colon (principal) | CPT/HCPCS: 99202 ==

== ENCOUNTER 2022-01-15 09:54 | Inpatient (IN) | payer MEDICARE, MEDICAID, SELFPAY ==
[2022-01-15] VITALS (9 sets, daily range): BP systolic 111–136; BP diastolic 61–88; PULSE 65–109; RESP 9–20; TEMP 36.7–37; O2SAT 95–100; BMI 21.6
--- NOTE | ~2022-01-15 | CT_ITS ---
EXAMINATION: CT HEAD W/O IV CONTRAST CT CERVICAL SPINE W/O IV CONTRAST CLINICAL INFORMATION: Syncopal episode. COMPARISON: None TECHNIQUE: Head - Contiguous axial imaging of the head was performed from the skull base to the vertex without the administration of intravenous contrast, and axial images are reconstructed at 2 mm and 5 mm slice thickness. Cervical spine - A volumetric, helical CT acquisition of the cervical spine was obtained without contrast; in addition to the standard set of axial images, multiplanar reformatted images were provided in the coronal and sagittal imaging planes. This CT examination was performed using dose optimization techniques as appropriate, variously including the following: *Automated exposure control *Adjustment of mA and/or kV according to patient size (this includes techniques or standardized protocols for targeted exams where dose is matched to indication/reason for exam; i.e. extremities or head) *Use of iterative reconstruction technique DLP: 909 mGy-cm (total) FINDINGS: HEAD: No intracranial hemorrhage, extra axial fluid collection, focal mass effect or midline shift. The brain parenchyma has normal attenuation. No evidence of an acute major vascular territory infarction. Mild volume loss with commensurate prominence of ventricles and sulci; no hydrocephalus. The brainstem and cerebellum are unremarkable. The cerebellar tonsils are in normal position. The calvarium is normal. The visualized paranasal sinuses are well aerated with exception of mild amount mucus along the posterior left sphenoid sinus. The mastoid air cells are clear. The visualized orbits and temporomandibular joints are intact. There is minimal hematoma of the galea aponeurotica of the right parietal scalp. CERVICAL SPINE: The craniocervical junction is normal. The occipital condyles, dens and atlantodental articulation are intact. 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 The vertebral body heights are maintained. No fractures in the anterior or posterior elements. No prevertebral soft tissue swelling. There is multilevel vertebral osteophyte formation of the cervical spine. The disc spaces are generally well-preserved. There is multilevel facet osteoarthritis. The facet joint degeneration is severe on the left at C2-C3 and severe on the right at C3-C4. Moderate to severe facet arthropathy at C4-C5. Minimal degenerative anterolisthesis is present at C2-C3, C3-C4 and C4-C5. There are varying degrees of multilevel neural foraminal stenosis, including severe right-sided neural foraminal stenosis at C3-C4. At C6-C7, there is a left paracentral and foraminal zone disc herniation that appears to impinge upon the left C7 nerve root and might also displace the transiting C8 nerve root. No fluid collection or hematoma in the neck. Thyroid gland is unremarkable. There is dense atherosclerotic calcification of carotid bulbs. Centrilobular and paraseptal emphysema of the visualized lung apices. No apical pneumothorax. CT/CT cervical spine wo con IMPRESSION: * No intracranial hemorrhage or other acute intracranial pathology. * Small right parietal scalp hematoma is present. No calvarial fracture. * No fractures in the degenerated cervical spine. * Minimal degenerative anterolisthesis is noted at C2-C3, C3-C4 and C4-C5. * A left paracentral to foraminal zone disc herniation is noted at the C6-C7 level. * There is centrilobular and paraseptal emphysema of the visualized lung apices.
--- NOTE | ~2022-01-15 | XR_ITS ---
EXAMINATION: XR CHEST CLINICAL INFORMATION: Syncope COMPARISON: Chest CT 02/01/2020 TECHNIQUE: 2 views of the chest were obtained. FINDINGS: No significant abnormality is noted involving the heart, lungs, mediastinum, bony thorax or soft tissues. XR/XR chest 2V IMPRESSION: Unremarkable examination.
--- NOTE | 2022-01-15 11:35 | ECG_ITS ---
Test Reason : SEIZURE Blood Pressure : / mmHG Vent. Rate : 077 BPM Atrial Rate : 077 BPM P-R Int : 182 ms QRS Dur : 094 ms QT Int : 398 ms P-R-T Axes : 009 002 051 degrees QTc Int : 450 ms Normal sinus rhythm Normal ECG When compared with ECG of 14-NOV-2020 10:29, No significant change was found Referred By: Luanne Warner Electronically Signed By:Demarco Marie
[2022-01-15] MEDS: 0.9 % Sodium Chloride 1,000 ML 999 ML IVCONT (12:18)
[2022-01-15] MEDS: ondansetron HCL 4 MG/2 ML VIAL IVPUSH (12:18)
[2022-01-15] MEDS: chlordiazePOXIDE HCl 25 MG CAPSULE 50 MG PO (12:19)
--- NOTE | 2022-01-15 12:19 | ED.SYNCOPE ---
HPI - Syncope General Chief Complaint: Seizure Stated Complaint: UNWITNESSED SZ,?DT,POST ICTAL @ THIS TIME PER EMS Time Seen by Provider: 01/15/22 11:23 Source: patient and EMS Mode of arrival: EMS Limitations: other ( POOR HISTORIAN) History of Present Illness HPI narrative: 61-year-old male with a past medical history of hypertension not on any medications, gout, tobacco abuse and alcohol dependent who reports he drinks 1 pt of 100% proof liquor daily although proximally 4 days ago he stopped drinking cold turkey and reports he has been dry heaving and having some dizziness and today when he was at the store shopping for his regular items he would need at home at [employer], [place] he remembers putting stuff in to his shopping cart and then he ended up here in the emergency department. Apparently the people from [employer] [place] told EMS that they believe he had a seizure. EMS reported that he was postictal on scene and aggressive and combative. Patient reports he does not recall any of this. He reports he has never had a seizure in the past. He reports he has never withdrawn from alcohol. He denies any changes in vision, vomiting, chest pain or shortness of breath, Chest pain, dyspnea on exertion, orthopnea, palpitations, paresthesias, abdominal pain, back pain, neck pain/ injury, back injury, extremity injury or pain, lower extremity edema or calf tenderness, focal weakness, any other falls or injuries or any SI/ HI / auditory visualizations thoughts of self injury. Reports he is not interested in detox. MD complaint: loss of consciousness, collapsed and seizure (? 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) -: minutes(s) ( Was not reported unknown) Description of event: other ( unknown) Prodromal symptoms: lightheaded ( dizziness with dry heaving) Witnessed: Yes - by Bystander ( people at [employer]) Context: during exertion ( while shopping) Injuries sustained associated with event: none ( patient denies any injuries) Current symptoms: lightheaded ( and dry heaving same symptoms he had before he had his syncopal possible seizure episode) History: other ( patient recently stopped drinking alcohol 4 days ago) Treatments prior to arrival: none Related Data Home Medications Medication Instructions Recorded Confirmed multivitamin 1 tab PO DAILY 01/15/22 01/15/22 Allergies Allergy/AdvReac Type Severity Reaction Status Date / Time No Known Allergies Allergy Verified 11/27/21 07:56 Review of Systems Review of Systems: Constitutional : No Fever, No Chills, No Night Sweats, No Fatigue, No Malaise ENT/Mouth : No Ear Pain, No Nasal Congestion, No Sinus Pain, No sore throat, No Rhinorrhea Eyes: No Eye Pain, No Swelling, No Redness, No Foreign Body, No Discharge, No Vision Changes Cardiovascular : No Chest Pain, No SOB, No Dyspnea on Exertion, No Orthopnea, No Palpitations Respiratory : No Cough, No Sputum, No Wheezing, No Dyspnea Gastrointestinal : + Nausea, No Vomiting, No Diarrhea, No Constipation, No abdominal Pain, No Hematochezia, No Melena Genitourinary : No Dysuria, No Urinary Frequency, No Urinary Incontinence, No Urgency, No Flank Pain Musculoskeletal : No joint pain, No Myalgias Skin : No lacerations Neuro : + lightheadedness/ dizziness with loss of consciousness possible seizure although did have syncope, No Focal weakness, no general weakness, No Numbness, No Paresthesias, No Headache Yes all other systems are reviewed and are negative [facility] Past Medical History Attestation statement: The following information was validated with the patient. Source: old records reviewed and nursing notes reviewed Medical History Anxiety COVID-19 vaccine series completed Gout History of recent fall HTN (hypertension) Hx of concussion Primary osteoarthritis of right hip Tobacco abuse Tongue abnormality Use of cane as ambulatory aid Wears dentures Surgical History History of arm fracture History of back surgery History of fracture of leg Hx of colonoscopy Family History Family History Father No problems noted. Mother Cirrhosis Social History Social History Housing: House Are you a primary career development engineer to a significant other at home: No Do you presently have visiting nurse or other home services: No Alcohol intake: former Patient Tobacco Use Status: Current everyday Tobacco user Tobacco use type: Cigarette Cigarette Packs Per Day: 1.5 Cigarettes Per Day: 30.0 Years Smoked: 46 e-Cigarette/Vaping Use: Never Used Second Hand Smoke Exposure: No Use of substances other than those prescribed or required for medical reasons: Yes Substance Use Type: Opiates Advance Directives: No Advance Directives Information Provided: Yes service: No Current occupational status: retired Current occupation: rt handed Physical Exam Vital Signs: Vital Signs: Last Vital Signs Temp 98.4 F 01/15/22 10:30 Pulse 96 01/15/22 14:18 Resp 16 01/15/22 13:36 BP 111/70 01/15/22 14:18 Pulse Ox 96 01/15/22 13:36 O2 Del Method 01/15/22 13:36 BMI result Body Mass Index 21.6 Vital signs have been reviewed as normal and appeared to be correct. Blood pressure normal. Heart rate 109. Respiration rate normal. Temperature normal. Oxygen saturation normal. Appearance: Alert. Oriented X3. No acute distress. Head: Normal external exam. Normocephalic. Atraumatic. Able to rotate head bilaterally. no Quijano sign noted. No raccoon eyes noted. Eyes: PERRLA. EOMI. No nystagmus noted. Conjunctiva and sclera normal. Eyelids normal. Corneal reflex normal. ENT: EAC normal. TM's Normal. no septal hematoma noted. No hemotympanum noted. Hearing normal. Pharynx normal. Uvula midline. tongue midline. Moist mucous membranes. No trismus noted. No drooling noted. No muffled voice noted. No nystagmus noted. Neck: Normal inspection. Neck supple. FROM. No adenopathy. Trachea midline. Thyroid Normal. No meningeal signs. No neck mass noted. CVS: Normal heart rate and rhythm. Heart sound normal. No murmurs noted. Pulses normal throughout. Respiratory: No respiratory distress. Painless inspiration. Breath sounds normal. No wheezes/rales/rhonchi noted. Chest nontender. No accessory muscle usage noted or decreased air movement noted. Abdomen: Soft and nontender. Bowel sounds normal in all 4 quadrants. No distention noted. No organomegaly noted. No visible injury noted. Back: No CVA tenderness. Full range of motion noted. Skin: Skin warm and dry. Normal skin color. Normal skin turgor. No rashes/lesions/lacerations noted. Extremities: No lower extremity edema. Extremities exhibit normal range of motion. Extremities nontender. Able to shrug shoulders bilaterally and keep up against resistance. Neuro: Oriented X 3. No motor deficit. No sensory deficit. Reflexes normal. Moving all extremities. No focal motor deficits. Cranial nerves II-XI intact bilaterally. Facial strength normal. Normal cognition. Speech normal. Gait normal. Strength 5/5 throughout. No pronator drift. No tremor noted. No fasciculations noted. No rigidity noted. Muscle tone normal throughout. No asterixis noted. Ferhbq-cg-[id number] test normal. Heel to mcghee test normal. Tandem gait normal. Does not sway with eyes open. Romberg test negative. Rapid alternating movement upper extremity normal. Rapid alternating movement lower extremity normal. Hand drop from overhead Misses face. NIHSS score 0. Course Course Course Narrative: 11:35am - 61-year-old male c PMHx of HTN, not on any medications, gout, tobacco abuse and alcohol dependent who reports he drinks 1 pt of 100% proof liquor daily although proximally 4 days ago he stopped drinking cold turkey and reports he has been dry heaving and having some dizziness and today when he was at the store shopping at [employer] [place] he had a syncopal episode possible seizure. Was postictal /aggressive and combative at scene per EMS. Patient does not recall any of this. He reports he has never had a seizure in the past. He reports he has never withdrawn from alcohol. Plan: Seizure precautions, see wall score, CT scan of brain /cervical spine, chest x-ray, labs, drugs of abuse screen, ethanol level, EKG and re-evaluate. Reevaluation(s) Reevaluation #1: - labs reviewed patient mild baseline anemia improved when compared to prior. Low platelet count at 117. Sodium 129. Potassium 2.8. Chloride 91. Random glucose 140. Magnesium 1.4. AST /ALT / alkaline phosphate 60/44/159. Total protein 8.9. Troponin 9.0 will repeat in 3 hours. UA revealed protein and a trace of blood otherwise no evidence of UTI. Patient positive for benzos. Negative for all other drugs. Patient negative for EtOH. Patient negative for COVID. - CT scan of brain /cervical spine revealed chronic changes no acute processes noted. Chest x-ray within normal limits no acute processes noted. - EKG normal sinus rhythm with a ventricular rate of 77 with a normal MD interval normal QRS duration normal QT/ QTC interval. No acute ischemic change are noted. Similar when compared to prior EKG on November 14, 2020 - therefore I repleted the patient with 2 g of IV magnesium, 40 mEq of IV potassium and a L of IV fluids will plan to admit for syncope of unknown cause possible withdrawal from alcohol seizure, hypo natremia, hypokalemia and low magnesium level. Patient understands agrees with this plan. Time: 14:09 MDM - Syncope Medical Records Attestation: I reviewed the patient's medical records. Lab Data Attestation: I reviewed the patient's lab results. Result diagrams: 01/15/22 12:20 01/15/22 12:20 Labs: Lab Results 01/15/22 01/15/22 01/15/22 Range/Units 12:20 12:20 12:20 WBC 10.2 (4.8-10.8) X10*3/uL RBC 3.93 L (4.60-5.80) X10*6/uL Hgb 13.6 L (14.0-18.0) g/dl Hct 37.2 L (42.0-52.0) % MCV 94.7 (80.0-98.0) fL MCH 34.6 H (27.0-33.0) pg MCHC 36.6 H (31.0-36.0) g/dl RDW 14.9 (11.0-16.0) % Plt Count 117 L (160-400) X10*3/uL MPV 10.2 (9.4-12.4) fL Immature Gran % (Auto) 0.3 (0.0-0.4) % Neut % (Auto) 85.3 H (45-73) % Lymph % (Auto) 5.7 L (20-40) % Ramsey % (Auto) 8.5 (2-11) % Eos % (Auto) 0.1 (0-4) % Baso % (Auto) 0.1 (0-2) % Lymph # (Auto) 0.6 L (1.2-4.9) X10*3/uL Ramsey # (Auto) 0.9 (0.1-1.2) X10*3/uL Eos # (Auto) 0.0 (0.0-0.4) X10*3/uL Baso # (Auto) 0.0 (0.0-0.2) X10*3/uL Abs Immat Gran (auto) 0.03 (0.00-0.03) X10*3/uL Absolute Neuts (auto) 8.7 H (2.0-8.3) x10*3/uL Absolute Nucleated RBC 0.000 (0.0-0.012) X10*3/uL Nucleated RBC % (auto) 0.0 (0.0-0.2) /100WBC PT 14.2 H (10.0-13.1) SEC INR 1.2 H (0.9-1.1) Sodium 129 L (135-145) mmol/L Potassium 2.8 L D (3.3-5.1) mmol/L Chloride 91 L (96-108) mmol/L Carbon Dioxide 27 (22-29) mmol/L Anion Gap 14 (12-20) BUN 14 (9-16) mg/dL Creatinine 0.95 (0.5-1.4) mg/dL Estim Creat Clear Calc 71.5 Estimated GFR > 60 Random Glucose 140 H (60-115) mg/dL Calcium 8.8 (8.4-10.2) mg/dL Magnesium 1.4 L* (1.6-2.6) mg/dL Total Bilirubin 1.5 H (0.0-1.0) mg/dL AST 60 H (5-37) U/L ALT 44 H (0-40) U/L Alkaline Phosphatase 159 H (39-117) U/L Lactate Dehydrogenase (118-273) U/L Troponin I High Sens (<3.5-35.0) ng/L Total Protein 8.4 H (6.5-8.0) g/dL Albumin 4.2 (3.5-5.0) g/dL Lipase (8-78) U/L TSH (0.32-4.0) uIU/mL Urine Color Urine Appearance Urine pH (5.0-8.0) Ur Specific [place] (1.005-1.025) Urine Protein (NEG-TRACE) MG/DL Urine Glucose (UA) (NEG) MG/DL Urine Ketones (NEG) MG/DL Urine Blood (NEG) Urine Nitrite (NEG) Ur Leukocyte Esterase (NEG) Urine RBC (0) /HPF Urine WBC (0-4) /HPF Ur Squamous Epith Cells /LPF Urine Bacteria /LPF Urine Sperm Urine Opiates Screen (Not Detect) Urine Fentanyl Screen (Not Detect) Ur Barbiturates Screen (Not Detect) Ur Phencyclidine Scrn (Not Detect) Ur Amphetamines Screen (Not Detect) U Benzodiazepines Scrn (Not Detect) Urine Cocaine Screen (Not Detect) U Marijuana (THC) Screen (Not Detect) Ethyl Alcohol mg/dL COVID-19 (ISMAEL) (Negative) COVID-19 Clin Com 01/15/22 01/15/22 01/15/22 Range/Units 12:20 12:20 12:20 WBC (4.8-10.8) X10*3/uL RBC (4.60-5.80) X10*6/uL Hgb (14.0-18.0) g/dl Hct (42.0-52.0) % MCV (80.0-98.0) fL MCH (27.0-33.0) pg MCHC (31.0-36.0) g/dl RDW (11.0-16.0) % Plt Count (160-400) X10*3/uL MPV (9.4-12.4) fL Immature Gran % (Auto) (0.0-0.4) % Neut % (Auto) (45-73) % Lymph % (Auto) (20-40) % Ramsey % (Auto) (2-11) % Eos % (Auto) (0-4) % Baso % (Auto) (0-2) % Lymph # (Auto) (1.2-4.9) X10*3/uL Ramsey # (Auto) (0.1-1.2) X10*3/uL Eos # (Auto) (0.0-0.4) X10*3/uL Baso # (Auto) (0.0-0.2) X10*3/uL Abs Immat Gran (auto) (0.00-0.03) X10*3/uL Absolute Neuts (auto) (2.0-8.3) x10*3/uL Absolute Nucleated RBC (0.0-0.012) X10*3/uL Nucleated RBC % (auto) (0.0-0.2) /100WBC PT (10.0-13.1) SEC INR (0.9-1.1) Sodium (135-145) mmol/L Potassium (3.3-5.1) mmol/L Chloride (96-108) mmol/L Carbon Dioxide (22-29) mmol/L Anion Gap (12-20) BUN (9-16) mg/dL Creatinine (0.5-1.4) mg/dL Estim Creat Clear Calc Estimated GFR Random Glucose (60-115) mg/dL Calcium (8.4-10.2) mg/dL Magnesium (1.6-2.6) mg/dL Total Bilirubin (0.0-1.0) mg/dL AST (5-37) U/L ALT (0-40) U/L Alkaline Phosphatase (39-117) U/L Lactate Dehydrogenase 222 (118-273) U/L Troponin I High Sens 9.0 (<3.5-35.0) ng/L Total Protein (6.5-8.0) g/dL Albumin (3.5-5.0) g/dL Lipase 36 (8-78) U/L TSH 1.33 (0.32-4.0) uIU/mL Urine Color Urine Appearance Urine pH (5.0-8.0) Ur Specific [place] (1.005-1.025) Urine Protein (NEG-TRACE) MG/DL Urine Glucose (UA) (NEG) MG/DL Urine Ketones (NEG) MG/DL Urine Blood (NEG) Urine Nitrite (NEG) Ur Leukocyte Esterase (NEG) Urine RBC (0) /HPF Urine WBC (0-4) /HPF Ur Squamous Epith Cells /LPF Urine Bacteria /LPF Urine Sperm Urine Opiates Screen (Not Detect) Urine Fentanyl Screen (Not Detect) Ur Barbiturates Screen (Not Detect) Ur Phencyclidine Scrn (Not Detect) Ur Amphetamines Screen (Not Detect) U Benzodiazepines Scrn (Not Detect) Urine Cocaine Screen (Not Detect) U Marijuana (THC) Screen (Not Detect) Ethyl Alcohol < 10 mg/dL COVID-19 (ISMAEL) (Negative) COVID-19 Clin Com 01/15/22 01/15/22 01/15/22 Range/Units 13:39 13:39 13:39 WBC (4.8-10.8) X10*3/uL RBC (4.60-5.80) X10*6/uL Hgb (14.0-18.0) g/dl Hct (42.0-52.0) % MCV (80.0-98.0) fL MCH (27.0-33.0) pg MCHC (31.0-36.0) g/dl RDW (11.0-16.0) % Plt Count (160-400) X10*3/uL MPV (9.4-12.4) fL Immature Gran % (Auto) (0.0-0.4) % Neut % (Auto) (45-73) % Lymph % (Auto) (20-40) % Ramsey % (Auto) (2-11) % Eos % (Auto) (0-4) % Baso % (Auto) (0-2) % Lymph # (Auto) (1.2-4.9) X10*3/uL Ramsey # (Auto) (0.1-1.2) X10*3/uL Eos # (Auto) (0.0-0.4) X10*3/uL Baso # (Auto) (0.0-0.2) X10*3/uL Abs Immat Gran (auto) (0.00-0.03) X10*3/uL Absolute Neuts (auto) (2.0-8.3) x10*3/uL Absolute Nucleated RBC (0.0-0.012) X10*3/uL Nucleated RBC % (auto) (0.0-0.2) /100WBC PT (10.0-13.1) SEC INR (0.9-1.1) Sodium (135-145) mmol/L Potassium (3.3-5.1) mmol/L Chloride (96-108) mmol/L Carbon Dioxide (22-29) mmol/L Anion Gap (12-20) BUN (9-16) mg/dL Creatinine (0.5-1.4) mg/dL Estim Creat Clear Calc Estimated GFR Random Glucose (60-115) mg/dL Calcium (8.4-10.2) mg/dL Magnesium (1.6-2.6) mg/dL Total Bilirubin (0.0-1.0) mg/dL AST (5-37) U/L ALT (0-40) U/L Alkaline Phosphatase (39-117) U/L Lactate Dehydrogenase (118-273) U/L Troponin I High Sens (<3.5-35.0) ng/L Total Protein (6.5-8.0) g/dL Albumin (3.5-5.0) g/dL Lipase (8-78) U/L TSH (0.32-4.0) uIU/mL Urine Color DK YELLOW Urine Appearance HAZY Urine pH 6.5 (5.0-8.0) Ur Specific [place] 1.010 (1.005-1.025) Urine Protein 1+ H (NEG-TRACE) MG/DL Urine Glucose (UA) NEG (NEG) MG/DL Urine Ketones NEG (NEG) MG/DL Urine Blood TRACE (NEG) Urine Nitrite NEG (NEG) Ur Leukocyte Esterase NEG (NEG) Urine RBC 1-4 (0) /HPF Urine WBC 0 (0-4) /HPF Ur Squamous Epith Cells TRACE /LPF Urine Bacteria NONE /LPF Urine Sperm NOTED Urine Opiates Screen Not Detected (Not Detect) Urine Fentanyl Screen Not Detected (Not Detect) Ur Barbiturates Screen Not Detected (Not Detect) Ur Phencyclidine Scrn Not Detected (Not Detect) Ur Amphetamines Screen Not Detected (Not Detect) U Benzodiazepines Scrn POSITIVE H (Not Detect) Urine Cocaine Screen Not Detected (Not Detect) U Marijuana (THC) Screen Not Detected (Not Detect) Ethyl Alcohol mg/dL COVID-19 (ISMAEL) Negative (Negative) COVID-19 Clin Com See Note 01/15/22 Range/Units 14:44 WBC (4.8-10.8) X10*3/uL RBC (4.60-5.80) X10*6/uL Hgb (14.0-18.0) g/dl Hct (42.0-52.0) % MCV (80.0-98.0) fL MCH (27.0-33.0) pg MCHC (31.0-36.0) g/dl RDW (11.0-16.0) % Plt Count (160-400) X10*3/uL MPV (9.4-12.4) fL Immature Gran % (Auto) (0.0-0.4) % Neut % (Auto) (45-73) % Lymph % (Auto) (20-40) % Ramsey % (Auto) (2-11) % Eos % (Auto) (0-4) % Baso % (Auto) (0-2) % Lymph # (Auto) (1.2-4.9) X10*3/uL Ramsey # (Auto) (0.1-1.2) X10*3/uL Eos # (Auto) (0.0-0.4) X10*3/uL Baso # (Auto) (0.0-0.2) X10*3/uL Abs Immat Gran (auto) (0.00-0.03) X10*3/uL Absolute Neuts (auto) (2.0-8.3) x10*3/uL Absolute Nucleated RBC (0.0-0.012) X10*3/uL Nucleated RBC % (auto) (0.0-0.2) /100WBC PT (10.0-13.1) SEC INR (0.9-1.1) Sodium (135-145) mmol/L Potassium (3.3-5.1) mmol/L Chloride (96-108) mmol/L Carbon Dioxide (22-29) mmol/L Anion Gap (12-20) BUN (9-16) mg/dL Creatinine (0.5-1.4) mg/dL Estim Creat Clear Calc Estimated GFR Random Glucose (60-115) mg/dL Calcium (8.4-10.2) mg/dL Magnesium (1.6-2.6) mg/dL Total Bilirubin (0.0-1.0) mg/dL AST (5-37) U/L ALT (0-40) U/L Alkaline Phosphatase (39-117) U/L Lactate Dehydrogenase (118-273) U/L Troponin I High Sens 11.2 (<3.5-35.0) ng/L Total Protein (6.5-8.0) g/dL Albumin (3.5-5.0) g/dL Lipase (8-78) U/L TSH (0.32-4.0) uIU/mL Urine Color Urine Appearance Urine pH (5.0-8.0) Ur Specific [place] (1.005-1.025) Urine Protein (NEG-TRACE) MG/DL Urine Glucose (UA) (NEG) MG/DL Urine Ketones (NEG) MG/DL Urine Blood (NEG) Urine Nitrite (NEG) Ur Leukocyte Esterase (NEG) Urine RBC (0) /HPF Urine WBC (0-4) /HPF Ur Squamous Epith Cells /LPF Urine Bacteria /LPF Urine Sperm Urine Opiates Screen (Not Detect) Urine Fentanyl Screen (Not Detect) Ur Barbiturates Screen (Not Detect) Ur Phencyclidine Scrn (Not Detect) Ur Amphetamines Screen (Not Detect) U Benzodiazepines Scrn (Not Detect) Urine Cocaine Screen (Not Detect) U Marijuana (THC) Screen (Not Detect) Ethyl Alcohol mg/dL COVID-19 (ISMAEL) (Negative) COVID-19 Clin Com Imaging Data CT scan of brain /cervical spine without contrast: Attestation: I personally reviewed and interpreted this imaging study as follows: Radiologist's impression: FINDINGS: HEAD: No intracranial hemorrhage, extra axial fluid collection, focal mass effect or midline shift. The brain parenchyma has normal attenuation. No evidence of an acute major vascular territory infarction. Mild volume loss with commensurate prominence of ventricles and sulci; no hydrocephalus. The brainstem and cerebellum are unremarkable. The cerebellar tonsils are in normal position. The calvarium is normal. The visualized paranasal sinuses are well aerated with exception of mild amount mucus along the posterior left sphenoid sinus. The mastoid air cells are clear. The visualized orbits and temporomandibular joints are intact. There is minimal hematoma of the galea aponeurotica of the right parietal scalp. CERVICAL SPINE: The craniocervical junction is normal. The occipital condyles, dens and atlantodental articulation are intact. 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 The vertebral body heights are maintained.? No fractures in the anterior or posterior elements. No prevertebral soft tissue swelling. There is multilevel vertebral osteophyte formation of the cervical spine. The disc spaces are generally well-preserved.? There is multilevel facet osteoarthritis. The facet joint degeneration is severe on the left at C2-C3 and severe on the right at C3-C4. Moderate to severe facet arthropathy at C4-C5. Minimal degenerative anterolisthesis is present at C2-C3, C3-C4 and C4-C5. There are varying degrees of multilevel neural foraminal stenosis, including severe right-sided neural foraminal stenosis at C3-C4. At C6-C7, there is a left paracentral and foraminal zone disc herniation that appears to impinge upon the left C7 nerve root and might also displace the transiting C8 nerve root. No fluid collection or hematoma in the neck. Thyroid gland is unremarkable. There is dense atherosclerotic calcification of carotid bulbs. Centrilobular and paraseptal emphysema of the visualized lung apices. No apical pneumothorax. CT/CT head/brain wo con IMPRESSION: *? No intracranial hemorrhage or other acute intracranial pathology. *? Small right parietal scalp hematoma is present. No calvarial fracture. *? No fractures in the degenerated cervical spine. *? Minimal degenerative anterolisthesis is noted at C2-C3, C3-C4 and C4-C5. *? A left paracentral to foraminal zone disc herniation is noted at the C6-C7 level. *? There is centrilobular and paraseptal emphysema of the visualized lung apices. Chest x-ray: Attestation: I personally reviewed and interpreted this imaging study as follows: Radiologist's impression: FINDINGS: No significant abnormality is noted involving the heart, lungs, mediastinum, bony thorax or soft tissues. XR/XR chest 2V IMPRESSION: Unremarkable examination. ECG Data Attestation: I personally reviewed and interpreted this ECG as follows: ECG interpretation date: 01/15/22 ECG interpretation time: 12:37 Interpretation: EKG normal sinus rhythm with a ventricular rate of 77 with a normal MD interval normal QRS duration normal QT/ QTC interval. No acute ischemic change are noted. Similar when compared to prior EKG on November 14, 2020 Critical Care Time Critical Care Time Critical Care Time: Yes Total Critical Care Time: 60 Attestation: I personally attest to this time spent taking care of the patient Discharge Plan Discharge Clinical Impression: Episode of syncope, Acute hyponatremia, Acute hypokalemia, Low blood magnesium Patient Disposition: Admitted As Inpatient
[2022-01-15 12:26] LABS: MANUAL DIFF FLAG NO
[2022-01-15 12:27] LABS: Basophils Percent Auto 0.1 % (0-2); Eosinophils Percent Auto 0.1 % (0-4); Hematocrit 37.2 % (42.0-52.0); Hemoglobin 13.6 g/dl (14.0-18.0); Imm Gran Abs Auto 0.03 X10*3/uL (0.00-0.03); Imm Gran Pct Auto 0.3 % (0.0-0.4); Lymphocytes Absolute Auto 0.6 X10*3/uL (1.2-4.9); Lymphocytes Percent Auto 5.7 % (20-40); Mean Corpuscular HGB Conc 36.6 g/dl (31.0-36.0); Mean Corpuscular Hemoglobin 34.6 pg (27.0-33.0); Mean Corpuscular Volume 94.7 fL (80.0-98.0); Mean Platelet Volume 10.2 fL (9.4-12.4); Monocytes Absolute Auto 0.9 X10*3/uL (0.1-1.2); Monocytes Percent Auto 8.5 % (2-11); Neutrophils Absolute Auto 8.7 x10*3/uL (2.0-8.3); Neutrophils Percent Auto 85.3 % (45-73); Platelet Count 117 X10*3/uL (160-400); Red Blood Count 3.93 X10*6/uL (4.60-5.80); Red Cell Distribution Width 14.9 % (11.0-16.0); White Blood Count 10.2 X10*3/uL (4.8-10.8)
[2022-01-15 12:42] LABS: INTERNATIONAL NORM RATIO 1.2 (0.9-1.1); Prothrombin Time 14.2 SEC (10.0-13.1)
[2022-01-15 12:50] LABS: Ethanol < 10 mg/dL; Lipase 36 U/L (8-78)
[2022-01-15 12:52] LABS: Alanine Aminotransferase 44 U/L (0-40); Albumin Level 4.2 g/dL (3.5-5.0); Alkaline Phosphatase 159 U/L (39-117); Anion Gap 14 (12-20); Aspartate Amino Transferase 60 U/L (5-37); Bilirubin Total 1.5 mg/dL (0.0-1.0); Blood Urea Nitrogen 14 mg/dL (9-16); Calcium 8.8 mg/dL (8.4-10.2); Carbon Dioxide 27 mmol/L (22-29); Chloride 91 mmol/L (96-108); Creatinine Clr Calc Pharmacy 71.5; Estimated Glomerular Filt Rate > 60; Glucose Random 140 mg/dL (60-115); Magnesium 1.4 mg/dL (1.6-2.6); Potassium 2.8 mmol/L (3.3-5.1); Sodium 129 mmol/L (135-145); Total Protein 8.4 g/dL (6.5-8.0)
[2022-01-15 13:02] LABS: Lactate Dehydrogenase 222 U/L (118-273)
[2022-01-15 13:10] LABS: TSH reflex Free T4 1.33 uIU/mL (0.32-4.0)
[2022-01-15] MEDS: Magnesium Sulfate/H2O 2 GM/50 ML PIGGYBACK IV ×2 (13:28→18:12)
[2022-01-15] MEDS: Potassium Chloride/H20 10 MEQ/100 ML PIGGYBACK 100 MEQ IV ×4 (13:30→18:11)
--- NOTE | 2022-01-15 13:40 | PHA.MEDREC ---
Pharmacy Consult ? Medication Reconciliation Pharmacy has completed the medication reconciliation. Patient states they take a multivitamin daily and suboxone occasionally . Luanne made aware. Thanks Otf
[2022-01-15 13:45] LABS: Appearance Urine HAZY; Color Urine DK YELLOW; Glucose Urine UA NEG (NEG); Leukocyte Esterase Urine NEG (NEG); Nitrite Urine NEG (NEG); PH 6.5 (5.0-8.0); UACC Culture Trigger NO; Urine Blood TRACE (NEG); Urine Ketones NEG (NEG); Urine Protein 1+ MG/DL (NEG-TRACE)
[2022-01-15 13:55] LABS: Sperm Urine NOTED; Squamous Epithelial Cell Urine TRACE /LPF; WBC Urine 0 /HPF (0-4)
[2022-01-15 14:00] LABS: Amphetamine Screen Urine Not Detected (Not Detect); Barbiturates, Urine Not Detected (Not Detect); Benzodiazepines Screen Urine POSITIVE (Not Detect); Cannabinoid Screen Urine Not Detected (Not Detect); Cocaine Screen Urine Not Detected (Not Detect); Fentanyl, urine Not Detected (Not Detect); Opiate Screen Urine Not Detected (Not Detect); Phencyclidine Screen Urine Not Detected (Not Detect)
[2022-01-15 14:05] LABS: COVID-19 Test Negative (Negative); IDNOW Serial# 16C4AD1C
[2022-01-15 15:11] LABS: Troponin-I High Sensitivity 11.2 ng/L (<3.5-35.0)
--- NOTE | 2022-01-15 16:00 | PC.NURSE ---
Spoke to Francesca (girlfriend) who is aware of pt staying/agreeable to admission Pt remains alert/oriented. No seizure or syncopal episodes since arrival to ED. KCl infusing as ordered. NSR on monitor. Skin flushed, denies any other withdrawal associated sx at this time.
--- NOTE | 2022-01-15 16:45 | P.HPHOSP_ITS ---
History of Present Illness Date of Service: 01/15/22 Chief Complaint: Syncope, seizure 61-year-old male with a past medical history of hypertension not on any medications, gout, tobacco abuse and alcohol dependent who reports he drinks 1 pint of Franklin Gimenez (100% proof liquor). He sick of it and decided to go cold turkey 4 days agoa. He has since been experiencing dry heaving, dizzy spells, shakes.. He was shopping at a [employer] and the next thing he remembers he is in the ED..Patrons at the store believe he had a seizure.. There is no report of tongue bite, urinary or stool incontinence or foaming from the mouth.. He reports similar incident in the past attributed to alcohol withdrawal.. Head CT, Cervical spine CT show no acute fracture. Mag level is 1.4, Sodium 129, Potassium is 2.8 LFTs are mildly elevated. ECG is normal. He is back to his baseline Review of Systems Review of Systems: Gen: no fever Resp: no sob, no cough CV: no chest, no BOWERS, no leg edema GI: No n/v, no abd pain Neuro: No confusion, no seizure Yes all other systems are reviewed and are negative [facility] Medical History Anxiety COVID-19 vaccine series completed Gout History of recent fall HTN (hypertension) Hx of concussion Primary osteoarthritis of right hip Tobacco abuse Tongue abnormality Use of cane as ambulatory aid Wears dentures Family History Father No problems noted. Mother Cirrhosis Surgical History History of arm fracture History of back surgery History of fracture of leg Hx of colonoscopy Social History Housing: House Are you a primary personal caregiver to a significant other at home: No Do you presently have visiting nurse or other home services: No Alcohol intake: former Patient Tobacco Use Status: Current everyday Tobacco user Tobacco use type: Cigarette Cigarette Packs Per Day: 1.5 Cigarettes Per Day: 30.0 Years Smoked: 46 e-Cigarette/Vaping Use: Never Used Second Hand Smoke Exposure: No Use of substances other than those prescribed or required for medical reasons: Yes Substance Use Type: Opiates Advance Directives: No Advance Directives Information Provided: Yes service: No Current occupational status: retired Current occupation: rt handed Meds Allergies Allergy/AdvReac Type Severity Reaction Status Date / Time No Known Allergies Allergy Verified 11/27/21 07:56 Active Medications: Current Medications Potassium Chloride () 10 meq in 100 mls @ 100 mls/hr IV Q1H DAMIÁN Stop: 01/15/22 17:59 Last Admin: 01/15/22 15:04 Dose: 100 mls/hr Pharmacy Consult (Consult Rx Perform Med Rec) 1 each MISCELLANE ONCE PRN PRN Reason: Consult order Home Medications Medication Instructions Recorded Confirmed Last Taken Type multivitamin 1 tab PO DAILY 01/15/22 01/15/22 Unknown History Physical Exam Vital Signs and Narrative: Vital Signs: Last Vital Signs Temp 98.4 F 01/15/22 10:30 Pulse 96 01/15/22 14:18 Resp 16 01/15/22 13:36 BP 111/70 01/15/22 14:18 Pulse Ox 96 01/15/22 13:36 O2 Del Method 01/15/22 13:36 BMI result Body Mass Index 21.6 Const: Other: Constitutional: Alert, in no distress, Mental Status: Oriented to person, place and time. Eyes: Pupils are equal, round and reactive to light. Ear, Nose and Throat: Oropharynx clear, mucous membranes moist. Respiratory: Clear to auscultation. No wheezing, rales or rhonchi. Cardiovascular: S1 S2 regular. No murmurs, rubs or gallops. Gastrointestinal: Abdomen soft, non-tender, non-distended. Normal bowel sounds.? Neurologic: Cranial nerves II-XII grossly intact. No focal neurological deficits. Moves all extremities spontaneously.? Skin: No rashes or lesions.? Musculoskeletal: No cyanosis or clubbing. Psychiatric: Normal mood and affect? Results Labs CBC and Chem 7: 01/15/22 12:20 01/16/22 05:33 Labs: Laboratory Results - last 24 hr 01/15/22 01/15/22 01/15/22 12:20 12:20 12:20 MCV 94.7 MCH 34.6 H MCHC 36.6 H RDW 14.9 Plt Count 117 L MPV 10.2 Immature Gran % (Auto) 0.3 Neut % (Auto) 85.3 H Lymph % (Auto) 5.7 L [place] % (Auto) 8.5 Eos % (Auto) 0.1 Baso % (Auto) 0.1 Lymph # (Auto) 0.6 L [place] # (Auto) 0.9 Eos # (Auto) 0.0 Baso # (Auto) 0.0 Abs Immat Gran (auto) 0.03 Absolute Neuts (auto) 8.7 H Absolute Nucleated RBC 0.000 Nucleated RBC % (auto) 0.0 PT 14.2 H INR 1.2 H Anion Gap 14 Estim Creat Clear Calc 71.5 Estimated GFR > 60 Random Glucose 140 H Calcium 8.8 Magnesium 1.4 L* Total Bilirubin 1.5 H AST 60 H ALT 44 H Alkaline Phosphatase 159 H Lactate Dehydrogenase Troponin I High Sens Total Protein 8.4 H Albumin 4.2 Lipase TSH Urine Color Urine Appearance Urine pH Ur Specific [place] Urine Protein Urine Glucose (UA) Urine Ketones Urine Blood Urine Nitrite Ur Leukocyte Esterase Urine RBC Urine WBC Ur Squamous Epith Cells Urine Bacteria Urine Sperm Urine Opiates Screen Urine Fentanyl Screen Ur Barbiturates Screen Ur Phencyclidine Scrn Ur Amphetamines Screen U Benzodiazepines Scrn Urine Cocaine Screen U Marijuana (THC) Screen Ethyl Alcohol COVID-19 (ISMAEL) COVID-19 Clin Com 01/15/22 01/15/22 01/15/22 12:20 12:20 12:20 MCV MCH MCHC RDW Plt Count MPV Immature Gran % (Auto) Neut % (Auto) Lymph % (Auto) [place] % (Auto) Eos % (Auto) Baso % (Auto) Lymph # (Auto) [place] # (Auto) Eos # (Auto) Baso # (Auto) Abs Immat Gran (auto) Absolute Neuts (auto) Absolute Nucleated RBC Nucleated RBC % (auto) PT INR Anion Gap Estim Creat Clear Calc Estimated GFR Random Glucose Calcium Magnesium Total Bilirubin AST ALT Alkaline Phosphatase Lactate Dehydrogenase 222 Troponin I High Sens 9.0 Total Protein Albumin Lipase 36 TSH 1.33 Urine Color Urine Appearance Urine pH Ur Specific [place] Urine Protein Urine Glucose (UA) Urine Ketones Urine Blood Urine Nitrite Ur Leukocyte Esterase Urine RBC Urine WBC Ur Squamous Epith Cells Urine Bacteria Urine Sperm Urine Opiates Screen Urine Fentanyl Screen Ur Barbiturates Screen Ur Phencyclidine Scrn Ur Amphetamines Screen U Benzodiazepines Scrn Urine Cocaine Screen U Marijuana (THC) Screen Ethyl Alcohol < 10 COVID-19 (ISMAEL) COVID-19 Clin Com 01/15/22 01/15/22 01/15/22 13:39 13:39 13:39 MCV MCH MCHC RDW Plt Count MPV Immature Gran % (Auto) Neut % (Auto) Lymph % (Auto) [place] % (Auto) Eos % (Auto) Baso % (Auto) Lymph # (Auto) [place] # (Auto) Eos # (Auto) Baso # (Auto) Abs Immat Gran (auto) Absolute Neuts (auto) Absolute Nucleated RBC Nucleated RBC % (auto) PT INR Anion Gap Estim Creat Clear Calc Estimated GFR Random Glucose Calcium Magnesium Total Bilirubin AST ALT Alkaline Phosphatase Lactate Dehydrogenase Troponin I High Sens Total Protein Albumin Lipase TSH Urine Color DK YELLOW Urine Appearance HAZY Urine pH 6.5 Ur Specific [place] 1.010 Urine Protein 1+ H Urine Glucose (UA) NEG Urine Ketones NEG Urine Blood TRACE Urine Nitrite NEG Ur Leukocyte Esterase NEG Urine RBC 1-4 Urine WBC 0 Ur Squamous Epith Cells TRACE Urine Bacteria NONE Urine Sperm NOTED Urine Opiates Screen Not Detected Urine Fentanyl Screen Not Detected Ur Barbiturates Screen Not Detected Ur Phencyclidine Scrn Not Detected Ur Amphetamines Screen Not Detected U Benzodiazepines Scrn POSITIVE H Urine Cocaine Screen Not Detected U Marijuana (THC) Screen Not Detected Ethyl Alcohol COVID-19 (ISMAEL) Negative COVID-19 Clin Com See Note 01/15/22 14:44 MCV MCH MCHC RDW Plt Count MPV Immature Gran % (Auto) Neut % (Auto) Lymph % (Auto) [place] % (Auto) Eos % (Auto) Baso % (Auto) Lymph # (Auto) [place] # (Auto) Eos # (Auto) Baso # (Auto) Abs Immat Gran (auto) Absolute Neuts (auto) Absolute Nucleated RBC Nucleated RBC % (auto) PT INR Anion Gap Estim Creat Clear Calc Estimated GFR Random Glucose Calcium Magnesium Total Bilirubin AST ALT Alkaline Phosphatase Lactate Dehydrogenase Troponin I High Sens 11.2 Total Protein Albumin Lipase TSH Urine Color Urine Appearance Urine pH Ur Specific [place] Urine Protein Urine Glucose (UA) Urine Ketones Urine Blood Urine Nitrite Ur Leukocyte Esterase Urine RBC Urine WBC Ur Squamous Epith Cells Urine Bacteria Urine Sperm Urine Opiates Screen Urine Fentanyl Screen Ur Barbiturates Screen Ur Phencyclidine Scrn Ur Amphetamines Screen U Benzodiazepines Scrn Urine Cocaine Screen U Marijuana (THC) Screen Ethyl Alcohol COVID-19 (ISMAEL) COVID-19 Clin Com Imaging Radiologist's Impressions: Impressions Cervical Spine CT 01/15/22 12:06 IMPRESSION: * No intracranial hemorrhage or other acute intracranial pathology. * Small right parietal scalp hematoma is present. No calvarial fracture. * No fractures in the degenerated cervical spine. * Minimal degenerative anterolisthesis is noted at C2-C3, C3-C4 and C4-C5. * A left paracentral to foraminal zone disc herniation is noted at the C6-C7 level. * There is centrilobular and paraseptal emphysema of the visualized lung apices. Head CT 01/15/22 12:06 IMPRESSION: * No intracranial hemorrhage or other acute intracranial pathology. * Small right parietal scalp hematoma is present. No calvarial fracture. * No fractures in the degenerated cervical spine. * Minimal degenerative anterolisthesis is noted at C2-C3, C3-C4 and C4-C5. * A left paracentral to foraminal zone disc herniation is noted at the C6-C7 level. * There is centrilobular and paraseptal emphysema of the visualized lung apices. Chest X-Ray 01/15/22 12:08 IMPRESSION: Unremarkable examination. Assessment and Plan (1) Low blood magnesium: Status: Acute (2) Acute hypokalemia: Status: Acute (3) Alcohol withdrawal seizure: Status: Acute Plan 61/ male heavy alcohol drinker who quit cold turkey 4 days ago here with what appear to be alcohol withdrawal seizure, yet arrytmia need to be rule out espec ially in light of low K and magnesium 1/Alcohol Depenency 2/Alcohol Withdrwal seizure -Seizure precaution -Phenobarbital protocol -Folic acid and thiamine supplement -cessation counceling 3/ HypOmagnesemia--IV replacement and repeat in AM 4/ HypOkalemia--IV and oral replacment and repeat in the morning -Magnesium and Potassium replacement 5/HypOnatremia--likely from chronic alcohol use 4/ Syncope likely related to 1 and 2 -Tele monitor to rule arrythmias Need for inpatient: Alcohol withdrawal seizure and need close monitong and correction of electrolytes abnormalities Quality Stroke Does the patient have a stroke diagnosis?: No VTE Prior VTE?: No VTE Risk Level:: Medical - moderate - high VTE Device Contraindication: Treatment Not Indicated VTE Drug Contraindication: N/A - Med Ordered
[2022-01-15] MEDS: Folic Acid 1 MG TABLET PO (18:11)
[2022-01-15] MEDS: Thiamine HCL 100 MG TABLET PO (18:12)
[2022-01-15] MEDS: Potassium Chloride Packet 20 MEQ PACKET 40 MEQ PO (18:12)
[2022-01-15] MEDS: Enoxaparin Sodium 40 MG/0.4 ML SYRINGE SUBCUT (18:20)
[2022-01-15] MEDS: Dextrose 5 % and 0.45 % NaCl 1,000 ML 100 ML IVCONT (18:27)
--- NOTE | 2022-01-15 21:44 | PC.NURSE ---
patient brought over from 3d to bed 7, patient a&ox3, vss, threat monitoring analyst applied, nsr 60s, seizure precautions intact, ivf running per order, pt medicated per order, call nielson within reach, will continue to monitor.
--- NOTE | 2022-01-15 22:44 | MHC.CM.PN ---
IMM 01/15. Met with admitted patient with bed assignment pending. A&Ox4. Rents a room in a home. Has lived there for 20 years. Uses no DME/services. Vax/boosted/[employer] (10/30/20, 11/28/20, 06/03/21). PCP Edmundo Singh. Declines HCP. Girlfriend Francesca Santana ([phone]). Pt is not interested in alcohol rehabilitation. Will meet with [facility]. D/C plan: home. Pt to arrange transportation. CM to follow for d/c needs.
[2022-01-15] MEDS: 0.9 % Sodium Chloride Flush 3 ML SYRINGE IVFLUSH (23:51)
--- NOTE | 2022-01-15 23:55 | PC.NURSE ---
IV infusion was found to be disconnected from pt. Infusion restarted and pt is resting in bed comfortably.
[2022-01-16 04:00] VITALS: BP 141/80; PULSE 63; RESP 12; TEMP 36.8; O2SAT 100
[2022-01-16] MEDS: Dextrose 5 % and 0.45 % NaCl 1,000 ML 100 ML IVCONT (06:54)
[2022-01-16 07:16] LABS: Anion Gap 11 (12-20); Blood Urea Nitrogen 9 mg/dL (9-16); Carbon Dioxide 25 mmol/L (22-29); Chloride 95 mmol/L (96-108); Creatinine Clr Calc Pharmacy 104.5; Estimated Glomerular Filt Rate > 60; Glucose Random 89 mg/dL (60-115); Potassium 3.2 mmol/L (3.3-5.1); Sodium 128 mmol/L (135-145)
[2022-01-16 07:24] LABS: Calcium 7.9 mg/dL (8.4-10.2)
[2022-01-16] MEDS: PHENobarbitaL 15 MG TABLET 45 MG PO (08:28)
[2022-01-16] MEDS: Multivitamin TABLET 1 TAB PO (08:28)
[2022-01-16] MEDS: Folic Acid 1 MG TABLET PO (08:28)
[2022-01-16] MEDS: Thiamine HCL 100 MG TABLET PO (08:28)
[2022-01-16] MEDS: 0.9 % Sodium Chloride Flush 3 ML SYRINGE IVFLUSH (08:29)
[2022-01-16 08:32] VITALS: BP 148/93; PULSE 76; RESP 12; O2SAT 99
--- NOTE | 2022-01-16 08:35 | PC.NURSE ---
Addendum entered by Prudence Yusuf RN 01/16/22 08:40: Rt AC 20G IV patent and flushed. Original Note: 0820-pt assessed. confused to time, but knew place, person and situation. PALMER KELLY well. Pt denies numbness and tingling x4. seizure precautions in place, no seizure activity noted. lung sounds clear bilaterally A&P throughout. bowel sounds present x4, abdomen soft and non-tender. pulses palpable +2 x4. pt denies pain at this time.
--- NOTE | 2022-01-16 09:17 | P.CDIC_ITS ---
CDI Concurrent Query Documentation Clarification: PHYSICIAN'S DOCUMENTATION REQUEST Date of Query: 01/16/22916 Patient Name: Pranay Corley Admit Date: 01/15/22 Dear Doctor, A review of the medical record indicates additional documentation may be needed. Please review below and update the documentation accordingly Risk Factors/Clinical Indicators/Treatments LABS: sodium 129 128 IV fluids ED: 01/15 - Clinical impression - hyponatremia Is there a diagnosis that correlates with these lab findings: Clarity and consistency: Hyponatremia or other etiology of lab findings * [Diagnosis] was present on admission and is now resolved * [Diagnosis] was present on admission and is still being monitored, evaluated, or treated * Other (please specify) * Unable to determine Use of terms such as suspected, likely, concern for, or probable (associated with a specific diagnosis that is being evaluated, monitored, or treated as if it exists) are acceptable and can be coded in the inpatient setting, when documented at the time of discharge. Thank you, Shweta Orourke [facility], CDIS Extension: [phone] Please use your independent medical judgment in providing your response. THIS QUERY IS PART OF THE PERMANENT MEDICAL RECORD Provider Response: Other Other Diagnosis: see H and P
--- NOTE | 2022-01-16 11:06 | PC.NURSE ---
1050-pt pulled IV out and insisted upon leaving. when attempting to calm patient and explain that dr would discharge him later today, pt refused and dressed himself. He stated, he is leaving and will not stay any longer . was text to update and made aware of situation. AMA paper was explained to patient. Pt and 2 RN signed paper. Explained to patient that the drJuni did not want him to drive, due to his seizures, or drink etoh. No one here to tow picker patient. Patient stated, He will call someone when he leaves.
--- NOTE | 2022-01-16 11:35 | P.DS_ITS ---
DS: Providers Provider Date of Service: 01/16/22 Date of admission: 01/15/22 17:04 Primary care physician: Edmundo Singh [facility] DS: Diagnosis Discharge Diagnosis (1) Low blood magnesium: Status: Acute (2) Acute hypokalemia: Status: Acute (3) Alcohol withdrawal seizure: Status: Acute DS: Summary Hospital Course Hospital Course: Chief Complaint: Syncope, seizure 61-year-old male with a past medical history of hypertension not on any medications, gout, tobacco abuse and alcohol dependent who reports he drinks 1 pint of [place] (100% proof liquor). He sick of it and decided to go cold turkey 4 days agoa.? He has since been experiencing dry heaving, dizzy spells, shakes.. He was shopping at [email or web address] and the next thing he remembers he is in the ED..Patrons at the store believe he had a seizure.. There is no report of tongue bite, urinary or stool incontinence or foaming from the mouth.. He reports similar incident in the past attributed to alcohol withdrawal.. Head CT, Cervical spine CT show no acute fracture. Mag level is 1.4, Sodium 129, Potassium is 2.8? LFTs are mildly elevated. ECG is normal. He is back to his baseline Hospital course: He was asdmitted and put on Phenobarbital for alcohol withdrawal, potassium, magnesium were replaced and improved by next day. There was not arrythmia.. When I saw him today the first thing he inqured about being dischared and I informed him that I will review the record and dicussed dispotion at multisciplinary round with possible plan to to have CARE team to assess him did say that he has to go take care of elderly person. and that if he leaves before my final assessment he was leaving A and will be responsible for any health complications, he was of sound mind and accepted the risks and I was informed later by RN that he elected to leave and did not wait for me to furmulate and final dispostion plan further medical management. I also told him he was not to drive and he told me he didn't drive Final diagnosis Alcohol withdrawal seizure syncope likely due to seizure hyponatremia hypomagnesium hypokalemia elevated LFTs due to chronic alcohol use Time Spent with Patient Time attestation: Total time spent providing and/or coordinating discharge services: Discharge coordination time: Greater than 30 minutes Quality: Safe Use of Opioids Does Pt have an Active Cancer Diagnosis on the Problem List?: No Quality: Stroke Does the patient have a stroke diagnosis?: No Physical Exam Vital Signs: Vital Signs: Last Vital Signs Temp 98.2 F 01/16/22 04:00 Pulse 76 01/16/22 08:32 Resp 12 01/16/22 08:32 BP 148/93 H 01/16/22 08:32 Pulse Ox 99 01/16/22 08:32 O2 Del Method 01/16/22 08:32 BMI result Body Mass Index 21.6 DS: Data Data Completed and Pending Completed studies during hospitalization [Text1]: Procedures Replacement of Left Hip Joint with Synthetic Substitute, Uncemented, Open Approach (12/17/20) Labs on day of discharge: Laboratory Results - last 24 hr 01/15/22 01/15/22 01/15/22 12:20 12:20 12:20 WBC 10.2 RBC 3.93 L Hgb 13.6 L Hct 37.2 L MCV 94.7 MCH 34.6 H MCHC 36.6 H RDW 14.9 Plt Count 117 L MPV 10.2 Immature Gran % (Auto) 0.3 Neut % (Auto) 85.3 H Lymph % (Auto) 5.7 L [place] % (Auto) 8.5 Eos % (Auto) 0.1 Baso % (Auto) 0.1 Lymph # (Auto) 0.6 L [place] # (Auto) 0.9 Eos # (Auto) 0.0 Baso # (Auto) 0.0 Abs Immat Gran (auto) 0.03 Absolute Neuts (auto) 8.7 H Absolute Nucleated RBC 0.000 Nucleated RBC % (auto) 0.0 PT 14.2 H INR 1.2 H Sodium 129 L Potassium 2.8 L D Chloride 91 L Carbon Dioxide 27 Anion Gap 14 BUN 14 Creatinine 0.95 Estim Creat Clear Calc 71.5 Estimated GFR > 60 Random Glucose 140 H Calcium 8.8 Magnesium 1.4 L* Total Bilirubin 1.5 H AST 60 H ALT 44 H Alkaline Phosphatase 159 H Lactate Dehydrogenase Troponin I High Sens Total Protein 8.4 H Albumin 4.2 Lipase TSH Urine Color Urine Appearance Urine pH Ur Specific [place] Urine Protein Urine Glucose (UA) Urine Ketones Urine Blood Urine Nitrite Ur Leukocyte Esterase Urine RBC Urine WBC Ur Squamous Epith Cells Urine Bacteria Urine Sperm Urine Opiates Screen Urine Fentanyl Screen Ur Barbiturates Screen Ur Phencyclidine Scrn Ur Amphetamines Screen U Benzodiazepines Scrn Urine Cocaine Screen U Marijuana (THC) Screen Ethyl Alcohol COVID-19 (ISMAEL) COVID-19 [employer] Com 01/15/22 01/15/22 01/15/22 12:20 12:20 12:20 WBC RBC Hgb Hct MCV MCH MCHC RDW Plt Count MPV Immature Gran % (Auto) Neut % (Auto) Lymph % (Auto) [place] % (Auto) Eos % (Auto) Baso % (Auto) Lymph # (Auto) [place] # (Auto) Eos # (Auto) Baso # (Auto) Abs Immat Gran (auto) Absolute Neuts (auto) Absolute Nucleated RBC Nucleated RBC % (auto) PT INR Sodium Potassium Chloride Carbon Dioxide Anion Gap BUN Creatinine Estim Creat Clear Calc Estimated GFR Random Glucose Calcium Magnesium Total Bilirubin AST ALT Alkaline Phosphatase Lactate Dehydrogenase 222 Troponin I High Sens 9.0 Total Protein Albumin Lipase 36 TSH 1.33 Urine Color Urine Appearance Urine pH Ur Specific [place] Urine Protein Urine Glucose (UA) Urine Ketones Urine Blood Urine Nitrite Ur Leukocyte Esterase Urine RBC Urine WBC Ur Squamous Epith Cells Urine Bacteria Urine Sperm Urine Opiates Screen Urine Fentanyl Screen Ur Barbiturates Screen Ur Phencyclidine Scrn Ur Amphetamines Screen U Benzodiazepines Scrn Urine Cocaine Screen U Marijuana (THC) Screen Ethyl Alcohol < 10 COVID-19 (ISMAEL) COVID-19 [employer] 01/15/22 01/15/22 01/15/22 13:39 13:39 13:39 WBC RBC Hgb Hct MCV MCH MCHC RDW Plt Count MPV Immature Gran % (Auto) Neut % (Auto) Lymph % (Auto) [place] % (Auto) Eos % (Auto) Baso % (Auto) Lymph # (Auto) [place] # (Auto) Eos # (Auto) Baso # (Auto) Abs Immat Gran (auto) Absolute Neuts (auto) Absolute Nucleated RBC Nucleated RBC % (auto) PT INR Sodium Potassium Chloride Carbon Dioxide Anion Gap BUN Creatinine Estim Creat Clear Calc Estimated GFR Random Glucose Calcium Magnesium Total Bilirubin AST ALT Alkaline Phosphatase Lactate Dehydrogenase Troponin I High Sens Total Protein Albumin Lipase TSH Urine Color DK YELLOW Urine Appearance HAZY Urine pH 6.5 Ur Specific [place] 1.010 Urine Protein 1+ H Urine Glucose (UA) NEG Urine Ketones NEG Urine Blood TRACE Urine Nitrite NEG Ur Leukocyte Esterase NEG Urine RBC 1-4 Urine WBC 0 Ur Squamous Epith Cells TRACE Urine Bacteria NONE Urine Sperm NOTED Urine Opiates Screen Not Detected Urine Fentanyl Screen Not Detected Ur Barbiturates Screen Not Detected Ur Phencyclidine Scrn Not Detected Ur Amphetamines Screen Not Detected U Benzodiazepines Scrn POSITIVE H Urine Cocaine Screen Not Detected U Marijuana (THC) Screen Not Detected Ethyl Alcohol COVID-19 (ISMAEL) Negative COVID-19 Clin Com See Note 01/15/22 01/16/22 01/16/22 14:44 05:33 05:33 WBC RBC Hgb Hct MCV MCH MCHC RDW Plt Count MPV Immature Gran % (Auto) Neut % (Auto) Lymph % (Auto) [place] % (Auto) Eos % (Auto) Baso % (Auto) Lymph # (Auto) [place] # (Auto) Eos # (Auto) Baso # (Auto) Abs Immat Gran (auto) Absolute Neuts (auto) Absolute Nucleated RBC Nucleated RBC % (auto) PT INR Sodium 128 L Potassium 3.2 L Chloride 95 L Carbon Dioxide 25 Anion Gap 11 L BUN 9 Creatinine 0.65 Estim Creat Clear Calc 104.5 Estimated GFR > 60 Random Glucose 89 D Calcium 7.9 L D Magnesium 2.0 Cancelled Total Bilirubin AST ALT Alkaline Phosphatase Lactate Dehydrogenase Troponin I High Sens 11.2 Total Protein Albumin Lipase TSH Urine Color Urine Appearance Urine pH Ur Specific [place] Urine Protein Urine Glucose (UA) Urine Ketones Urine Blood Urine Nitrite Ur Leukocyte Esterase Urine RBC Urine WBC Ur Squamous Epith Cells Urine Bacteria Urine Sperm Urine Opiates Screen Urine Fentanyl Screen Ur Barbiturates Screen Ur Phencyclidine Scrn Ur Amphetamines Screen U Benzodiazepines Scrn Urine Cocaine Screen U Marijuana (THC) Screen Ethyl Alcohol COVID-19 (ISMAEL) COVID-19 Clin Com Discharge Plan Discharge Anticipated Discharge Date/Time: 01/16/22 11:27 Patient Disposition: Left Against Medical Advice Discharge Diagnosis: alcohol withdrawal seizure, Referrals: Edmundo Singh, [facility] [Primary Care Provider] - 1 Week Discharge Medications: No Action multivitamin Tablet 1 tab PO DAILY Discharge Orders: Discharge Order (Routine); Ordered 01/16/22 Ordered By: Shamar Jose Diet: Advance to usual diet Activity on Discharge: As tolerated Care Plan Goals: Alcohol abstinence Health Concerns: Chronic alcohol use Plan of Treatment: Left ama but advised to stop drinking Assessment: left ama
--- NOTE | 2022-01-16 11:42 | MHC.CM.PN ---
Patient left AMA.
== END 2022-01-17 16:55 | disposition left against medical advice (07) | DRG 641 ==
LOC: HO.ED 14:46 → HO.EDOVER 17:37
PROVIDERS: Physician Assistant Medical; Admitting Provider Internal Medicine; Emergency Provider Emergency Medicine Emergency Medical Services; PCP Nurse Practitioner Family; Visit Provider Internal Medicine
DX: E87.1 Hypo-osmolality and hyponatremia (principal); F10.239 Alcohol dependence with withdrawal, unspecified; R56.9 Unspecified convulsions; F41.9 Anxiety disorder, unspecified; I10 Essential (primary) hypertension; E87.6 Hypokalemia; E83.42 Hypomagnesemia; F17.210 Nicotine dependence, cigarettes, uncomplicated; Z71.6 Tobacco abuse counseling; Z20.822 Contact with and (suspected) exposure to COVID-19; Z79.899 Other long term (current) drug therapy
CPT/HCPCS: 36415; 70450; 71046; 72125; 80048; 80053; 80307; 81001; 82077; 83615; 83690; 83735; 84443; 84484; 85025; 85610; 87635; 93005; 96361; 96365; 96366; 96367; 99285; J1650; J2405; J3475

== ENCOUNTER 2022-01-19 10:35 | Emergency (ER) | payer MEDICARE, MEDICAID, SELFPAY ==
--- NOTE | ~2022-01-19 | CT_ITS ---
EXAMINATION: CT HEAD WITHOUT CONTRAST CT CERVICAL SPINE WITHOUT CONTRAST CLINICAL INFORMATION: Trauma. COMPARISON: CT head and cervical spine 01/15/2022. TECHNIQUE: Contiguous axial imaging was performed from the skull base to vertex without intravenous administration of contrast. Contiguous axial imaging was performed from the upper chest through the skull base without intravenous administration of contrast. Coronal and sagittal reformats were obtained at the acquisition workstation. This CT examination was performed using dose optimization techniques as appropriate, variously including the following: *Automated exposure control *Adjustment of mA and/or kV according to patient size (this includes techniques or standardized protocols for targeted exams where dose is matched to indication/reason for exam; i.e. extremities or head) *Use of iterative reconstruction technique DLP: 630 and 387 mGy-cm FINDINGS: Head: There is no evidence of acute intracranial hemorrhage or edematous territorial infarction. A few foci of hypoattenuation in the periventricular and deep white matter are consistent with mild microangiopathy. Espino-white matter differentiation is preserved. The ventricles are normal in size and configuration. No evidence for obstructive hydrocephalus. No abnormal mass effect or midline shift. No extra-axial fluid collections. Decreased right parietal scalp hematoma. Subtle lucency in the left nasal alae (8/14) unchanged. The mastoid air cells and paranasal sinuses are clear. Bilateral lens extractions. Cervical Spine: The atlantooccipital and atlantoaxial articulations remain well aligned. Straightening of the normal cervical lordosis. Very mild anterolisthesis of C2 on C3 and C3 on C4, unchanged. Otherwise, there is anatomic alignment of the vertebral bodies and posterior elements. No evidence of acute fracture or subluxation. Again noted moderate multilevel cervical spondylosis and uncovertebral hypertrophy leading to variously degrees of central canal narrowing and neural foraminal encroachment. There is no prevertebral soft tissue swelling. Redemonstration of a low attenuating superficial nodule measuring 1.1 cm in the posterior upper neck (12:133). The thyroid gland and remaining cervical soft tissues are normal in appearance. The lung apices demonstrate emphysematous changes. CT/CT cervical spine wo con IMPRESSION: 1. Decreased right parietal scalp hematoma. 2. No acute intracranial abnormality. 3. Subtle lucency in the bones of the nasal alae, unchanged, possibly a fracture. Correlate for point tenderness. 4. No acute cervical spine fracture or malalignment. Cervical spondylosis. 5. Unchanged low attenuating superficial nodule in the skin of the posterior upper neck on the left side, correlate with physical examination, possibly a sebaceous cyst.
--- NOTE | ~2022-01-19 | CT_ITS ---
EXAMINATION: CT CHEST, ABDOMEN AND PELVIS WITH CONTRAST CLINICAL INFORMATION: Left-sided chest wall trauma. COMPARISON: Low-dose chest CT scan dated 08/21/2021. TECHNIQUE: Multidetector volumetric imaging was performed of the chest, abdomen and pelvis following IV administration of 100 mL of Omnipaque 300 intravenous contrast. Sagittal and coronal reformatted images were obtained on the technologist's workstation. This CT examination was performed using dose optimization techniques as appropriate, variously including the following: *Automated exposure control *Adjustment of mA and/or kV according to patient size (this includes techniques or standardized protocols for targeted exams where dose is matched to indication/reason for exam; i.e. extremities or head) DLP: 707 mGy-cm FINDINGS: CHEST: LUNGS/PLEURA/AIRWAYS: Mild upper lobe predominant centrilobular/paraseptal emphysema. Interval development of a few scattered groundglass opacities within the larger is seen with patchy distribution anteriorly in the left upper lobe. Bibasilar linear atelectasis/scarring is seen most pronounced at the lung bases. No significant new/suspicious pulmonary nodules. There are no pleural effusions. No pneumothorax. MEDIASTINUM: The visualized thyroid gland is unremarkable. The thoracic aorta shows mild atherosclerosis without significant dilatation. No evidence for dissection. Mild coronary artery calcifications. No pericardial effusion. CHEST LYMPH NODES: No lymphadenopathy. SOFT TISSUES: Mild infiltrative changes in the deep soft tissues in the posterolateral left chest superjacent to the rib fractures. ABDOMEN/PELVIS: LIVER, GALLBLADDER, AND BILIARY TREE: Diffuse decreased hepatic attenuation. No significant gallbladder/biliary abnormality. PANCREAS: Unremarkable. SPLEEN: Unremarkable. ADRENAL GLANDS: Indeterminate left adrenal nodule measuring 1.2 cm (image 42, series 15; image 25, series 13). KIDNEYS AND URETERS: A few tiny low-attenuation foci bilaterally. No nephrolithiasis or hydroureteronephrosis. BLADDER: Unremarkable. GASTROINTESTINAL TRACT: The stomach, small bowel and appendix are unremarkable. The colon shows a few scattered diverticuli most pronounced distally without surrounding abnormality. The rectum is unremarkable. LYMPH NODES: Normal. VASCULAR: Unremarkable. PELVIC VISCERA: Unremarkable. MUSCULOSKELETAL: Transitional anatomy is seen with cervical ribs at C7 and rudimentary ribs at T12. Sacralization of L5 is also noted. Left hip hardware is intact without abnormality. Mild to moderate multilevel degenerative changes including marginal osteophyte formation. There are acute, nondisplaced fractures of the posterolateral left 8th through 10th ribs. SOFT TISSUES: Unremarkable. CT/CT abdomen pelvis w con IMPRESSION: 1. Acute, nondisplaced posterolateral left eighth through 10th rib fractures with mild infiltrative changes in the superjacent chest wall soft tissues, but no other significant abnormality. 2. Scattered mild groundglass opacities in the lungs bilaterally as well as bibasilar atelectasis is nonspecific, but was not seen previously. This could be reactive to the recent trauma. A mild infectious/inflammatory process cannot be excluded. Short-term radiographic follow-up is recommended as clinically indicated. 3. Several incidental findings detailed above without acute intra-abdominal/pelvic abnormality. 4. Left adrenal nodule is indeterminate. This was not as well-seen on previous studies. Nonemergent adrenal protocol MRI should be considered for better characterization.
[2022-01-19 10:41] VITALS: BP 104/60; PULSE 106; RESP 22; TEMP 35.8; O2SAT 94; BMI 21.9
[2022-01-19] MEDS: Morphine Sulfate 4 MG/ML CARTRIDGE IVPUSH (11:11)
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
[2022-01-19 11:27] LABS: Basophils Percent Auto 0.3 % (0-2); Eosinophils Absolute Auto 0.1 X10*3/uL (0.0-0.4); Eosinophils Percent Auto 0.8 % (0-4); Hematocrit 35.8 % (42.0-52.0); Hemoglobin 12.7 g/dl (14.0-18.0); Imm Gran Abs Auto 0.07 X10*3/uL (0.00-0.03); Imm Gran Pct Auto 0.8 % (0.0-0.4); Lymphocytes Absolute Auto 1.5 X10*3/uL (1.2-4.9); Lymphocytes Percent Auto 17.2 % (20-40); MANUAL DIFF FLAG SCAN; Mean Corpuscular HGB Conc 35.5 g/dl (31.0-36.0); Mean Corpuscular Volume 98.6 fL (80.0-98.0); Mean Platelet Volume 9.9 fL (9.4-12.4); Monocytes Absolute Auto 1.6 X10*3/uL (0.1-1.2); Monocytes Percent Auto 18.4 % (2-11); Neutrophils Absolute Auto 5.5 x10*3/uL (2.0-8.3); Neutrophils Percent Auto 62.5 % (45-73); Platelet Count 196 X10*3/uL (160-400); Red Blood Count 3.63 X10*6/uL (4.60-5.80); Red Cell Distribution Width 15.9 % (11.0-16.0); SCAN SMEAR FLAG 1; White Blood Count 8.8 X10*3/uL (4.8-10.8)
[2022-01-19 11:31] LABS: INTERNATIONAL NORM RATIO 1.2 (0.9-1.1); Prothrombin Time 13.8 SEC (10.0-13.1)
[2022-01-19 11:37] VITALS: PULSE 77; RESP 16; O2SAT 98
[2022-01-19] MEDS: Albuterol Sulfate (0.083%) 2.5 MG/3 ML VIAL.NEB 5 MG INHALE (11:37)
[2022-01-19 11:43] VITALS: BP 146/76; PULSE 78; RESP 16; O2SAT 98
[2022-01-19 11:47] LABS: SLIDE REVIEW VERIFIED
[2022-01-19 13:18] LABS: Alanine Aminotransferase 51 U/L (0-40); Albumin Level 3.6 g/dL (3.5-5.0); Alkaline Phosphatase 122 U/L (39-117); Anion Gap 13 (12-20); Aspartate Amino Transferase 56 U/L (5-37); Bilirubin Direct 0.5 mg/dL (0.0-0.5); Blood Urea Nitrogen 5 mg/dL (9-16); Calcium 8.4 mg/dL (8.4-10.2); Carbon Dioxide 25 mmol/L (22-29); Chloride 96 mmol/L (96-108); Creatinine Clr Calc Pharmacy 110.9; Estimated Glomerular Filt Rate > 60; Glucose Random 119 mg/dL (60-115); Potassium 3.4 mmol/L (3.3-5.1); Sodium 131 mmol/L (135-145)
[2022-01-19] MEDS: oxyCODONE HCl Immed Release 5 MG TABLET 10 MG PO (14:52)
[2022-01-19 15:33] VITALS: PULSE 105; RESP 18; O2SAT 97
[2022-01-19] MEDS: Albuterol Sulfate 90 MCG 8 GM INHALER 2 PUFF INHALE (15:49)
[2022-01-19 15:50] VITALS: PULSE 85; RESP 15; O2SAT 97
== END 2022-01-19 16:47 | disposition home or self-care (01) ==
PROVIDERS: Nurse Practitioner Family; Emergency Provider Emergency Medicine; PCP Nurse Practitioner Family
DX: S22.42XA Multiple fractures of ribs, left side, initial encounter for closed fracture (principal); S29.9XXA Unspecified injury of thorax, initial encounter; S16.1XXA Strain of muscle, fascia and tendon at neck level, initial encounter; R06.02 Shortness of breath; R51.9 Headache, unspecified; M54.2 Cervicalgia; R10.30 Lower abdominal pain, unspecified; F17.210 Nicotine dependence, cigarettes, uncomplicated; V19.9XXA Pedal cyclist (driver) (passenger) injured in unspecified traffic accident, initial encounter; Y93.9 Activity, unspecified; Y92.410 Unspecified street and highway as the place of occurrence of the external cause; Y99.9 Unspecified external cause status; Z79.899 Other long term (current) drug therapy; Z71.6 Tobacco abuse counseling
CPT/HCPCS: 36415; 70450; 71260; 72125; 74177; 80048; 80076; 85025; 85610; 94640; 94644; 96374; 99284; J2270

== ENCOUNTER 2022-05-20 12:43 | Emergency (ER) | payer MEDICARE, MEDICAID, SELFPAY ==
--- NOTE | ~2022-05-20 | XR_ITS ---
EXAMINATION: XR CHEST CLINICAL INFORMATION: Chest pain with swallowing COMPARISON: 01/15/2022 TECHNIQUE: 2 views of the chest were obtained. FINDINGS: Normal symmetric lung volumes. No parenchymal consolidation. No pleural effusion. No pneumothorax. Cardiomediastinal silhouette and pulmonary vascularity are within normal limits. Aorta is atherosclerotic. No acute osseous abnormalities. Healing left lateral eighth and ninth rib fractures. XR/XR chest 2V IMPRESSION: No acute findings
[2022-05-20 12:53] VITALS: BP 100/68; PULSE 113; RESP 20; TEMP 36.7; O2SAT 97; BMI 22.7
--- NOTE | 2022-05-20 13:35 | PC.NURSE ---
sr on monitor, last etoh 6 days ago and was a heavy drinker, very fine tremors lot better , has been having difficulty swallowing and pain when swallowing x 2 days, b/l smile and hand strength, no drift
--- NOTE | 2022-05-20 13:55 | ED.GENADULT ---
HPI - General Adult General Chief complaint: General Medical Stated complaint: Diff Swallowing Sent by PCP Time Seen by Provider: 05/20/22 13:47 Source: patient Mode of arrival: ambulatory Limitations: no limitations History of Present Illness HPI narrative: Sore throat down chest, worse with drinking. This started 2 days ago. Patient is an alcoholic. patient feels pain with swallowing solids as well. Onset (ago): day(s) Radiation: non-radiation Severity: mild Quality: burning Pain Consistency: intermittent Exacerbating factors: eating Associated symptoms: denies other symptoms Treatments prior to arrival: none Related Data Home Medications Medication Instructions Recorded Confirmed multivitamin 1 tab PO DAILY 01/15/22 01/15/22 Previous Rx's Medication Instructions Recorded oxycodone 5 mg tablet 5 mg PO Q8H PRN pain #10 tabs 01/19/22 sucralfate 100 mg/mL oral 10 ml PO BID #400 mL 05/20/22 suspension (Carafate) Allergies Allergy/AdvReac Type Severity Reaction Status Date / Time No Known Allergies Allergy Verified 05/20/22 12:52 Review of Systems Review of Systems: Yes all other systems are reviewed and are negative [facility] Past Medical History Medical History Anxiety COVID-19 vaccine series completed Gout History of recent fall HTN (hypertension) Hx of concussion Primary osteoarthritis of right hip Tobacco abuse Tongue abnormality Use of cane as ambulatory aid Wears dentures Surgical History History of arm fracture History of back surgery History of fracture of leg Hx of colonoscopy Family History Family History Father No problems noted. Mother Cirrhosis Social History Social History Housing: House Are you a primary emergency care attendant to a significant other at home: No Do you presently have visiting nurse or other home services: No Alcohol intake: former Patient Tobacco Use Status: Current everyday Tobacco user Tobacco use type: Cigarette Cigarette Packs Per Day: 1.5 Cigarettes Per Day: 30.0 Years Smoked: 46 e-Cigarette/Vaping Use: Never Used Second Hand Smoke Exposure: No Substance Use Type: Opiates Advance Directives: No service: No Current occupational status: retired Current occupation: rt handed Physical Exam ED Vital Signs: Vital Signs - 24 hr 05/20/22 12:53 05/20/22 15:07 Temperature 98.1 F 97.5 F Pulse Rate 113 H 97 Respiratory Rate 20 18 Blood Pressure 100/68 141/85 H Pulse Oximetry 97 100 Oxygen Delivery Method Room Air Room Air BMI result Body Mass Index 22.7 Const General: healthy appearing Nutritional Appearance: average body habitus Orientation/consciousness: oriented to person and patient oriented x3 Limitations: no limitations HENMT Head: Yes normal to inspection Ears: external ears normal General nose exam: Normal external nose present Mouth: Normal oral and palatal mucosa present and oropharynx normal Throat: Yes posterior oropharynx normal Eyes General: appearance normal, both eyes and all related structures Neck Neck: Yes normal visual inspection Chest Chest palpation & inspection: normal inspection of the chest Resp Auscultation: clear to auscultation bilaterally Cardio Jugular venous distension: no JVD Rate: regular rate Rhythm: regular rhythm Heart sounds: S1 normal heart sound present and S2 normal heart sound present GI Inspection: Yes normal to inspection Palpation (GI): Soft to palpation, nontender and No hepatosplenomegaly present Auscultation: normal bowel sounds General: Yes no CVA tenderness Back/Spine/Pelvis Back: no CVA tenderness Skin General skin exam: no rashes or lesions noted Neuro General: oriented to person and patient oriented x3 Cranial nerves: Yes CN's II-XII intact bilaterally Motor exam (neuro): 5/5 motor strength present throughout Extrem General: Yes normal to inspection Psych Appearance: grossly normal Course Reevaluation(s) Reevaluation #1: patient with symptoms most consistent with esophagitis will place on carafate and dc home Time: 15:35 Medications Administered Discontinued Medications Generic Name Dose Route Start Last Admin Trade Name Freq PRN Reason Stop Dose Admin Sucralfate 1 gm 05/20/22 13:57 05/20/22 14:33 Sucralfate Oral Suspension 1 Gm/10 Ml Oral.Susp PO 05/20/22 13:58 1 gm ONCE ONE Administration Medical Decision Making Lab Data Result diagrams: 05/20/22 14:16 05/20/22 14:16 Labs: Lab Results 05/20/22 05/20/22 Range/Units 14:16 14:16 WBC 12.5 H (4.8-10.8) X10*3/uL RBC 2.96 L (4.60-5.80) X10*6/uL Hgb 11.6 L (14.0-18.0) g/dl Hct 33.6 L (42.0-52.0) % MCV 113.5 H (80.0-98.0) fL MCH 39.2 H (27.0-33.0) pg MCHC 34.5 (31.0-36.0) g/dl RDW 15.5 (11.0-16.0) % Plt Count 403 H D (160-400) X10*3/uL MPV 9.0 L (9.4-12.4) fL Immature Gran % (Auto) 0.8 H (0.0-0.4) % Neut % (Auto) 74.1 H (45-73) % Lymph % (Auto) 12.5 L (20-40) % [place] % (Auto) 10.4 (2-11) % Eos % (Auto) 1.4 (0-4) % Baso % (Auto) 0.8 (0-2) % Lymph # (Auto) 1.6 (1.2-4.9) X10*3/uL [place] # (Auto) 1.3 H (0.1-1.2) X10*3/uL Eos # (Auto) 0.2 (0.0-0.4) X10*3/uL Baso # (Auto) 0.1 (0.0-0.2) X10*3/uL Abs Immat Gran (auto) 0.10 H (0.00-0.03) X10*3/uL Absolute Neuts (auto) 9.2 H (2.0-8.3) x10*3/uL Absolute Nucleated RBC 0.000 (0.0-0.012) X10*3/uL Nucleated RBC % (auto) 0.0 (0.0-0.2) /100WBC Sodium 134 L (135-145) mmol/L Potassium 5.2 H D (3.3-5.1) mmol/L Chloride 99 (96-108) mmol/L Carbon Dioxide 25 (22-29) mmol/L Anion Gap 15 (12-20) BUN 5 L (9-16) mg/dL Creatinine 0.58 (0.5-1.4) mg/dL Estim Creat Clear Calc 122.8 Estimated GFR > 60 Random Glucose 107 (60-115) mg/dL Calcium 8.7 (8.4-10.2) mg/dL Total Bilirubin 0.6 (0.0-1.0) mg/dL Direct Bilirubin 0.3 (0.0-0.5) mg/dL AST 47 H (5-37) U/L ALT 29 (0-40) U/L Alkaline Phosphatase 171 H D (39-117) U/L Total Protein 6.4 L (6.5-8.0) g/dL Albumin 3.1 L (3.5-5.0) g/dL Imaging Data Chest x-ray: My impression: no infiltrate, small left pleural effusion Discharge Plan Discharge Clinical Impression: Esophagitis Patient Disposition: Home, Self-Care Instructions: Corrosive Esophagitis (ED), Esophagitis (ED) Prescriptions: New sucralfate [Carafate] 100 mg/mL suspension 10 ml PO BID Qty: 400 0RF No Action multivitamin Tablet 1 tab PO DAILY oxycodone 5 mg tablet 5 mg PO Q8H PRN (Reason: pain) Qty: 10 0RF Rx Instructions: Partial Fill upon patient request. Referrals: Edmundo Singh, [facility] [Primary Care Provider] - 1 week Interventions: ED Discharge Assessment Last Done: 05/20/22 15:48 Discharge Date/Time: 05/20/22 15:48
[2022-05-20 14:20] LABS: MANUAL DIFF FLAG NO
[2022-05-20 14:32] LABS: Basophils Absolute Auto 0.1 X10*3/uL (0.0-0.2); Basophils Percent Auto 0.8 % (0-2); Eosinophils Absolute Auto 0.2 X10*3/uL (0.0-0.4); Eosinophils Percent Auto 1.4 % (0-4); Hematocrit 33.6 % (42.0-52.0); Hemoglobin 11.6 g/dl (14.0-18.0); Imm Gran Pct Auto 0.8 % (0.0-0.4); Lymphocytes Absolute Auto 1.6 X10*3/uL (1.2-4.9); Lymphocytes Percent Auto 12.5 % (20-40); Mean Corpuscular HGB Conc 34.5 g/dl (31.0-36.0); Mean Corpuscular Hemoglobin 39.2 pg (27.0-33.0); Monocytes Absolute Auto 1.3 X10*3/uL (0.1-1.2); Monocytes Percent Auto 10.4 % (2-11); Neutrophils Absolute Auto 9.2 x10*3/uL (2.0-8.3); Neutrophils Percent Auto 74.1 % (45-73); Platelet Count 403 X10*3/uL (160-400); Red Blood Count 2.96 X10*6/uL (4.60-5.80); Red Cell Distribution Width 15.5 % (11.0-16.0); White Blood Count 12.5 X10*3/uL (4.8-10.8)
[2022-05-20 14:33] LABS: Mean Corpuscular Volume 113.5 fL (80.0-98.0)
[2022-05-20] MEDS: Sucralfate Oral Suspension 1 GM/10 ML ORAL.SUSP PO (14:33)
[2022-05-20 14:46] LABS: Alanine Aminotransferase 29 U/L (0-40); Albumin Level 3.1 g/dL (3.5-5.0); Alkaline Phosphatase 171 U/L (39-117); Anion Gap 15 (12-20); Aspartate Amino Transferase 47 U/L (5-37); Bilirubin Direct 0.3 mg/dL (0.0-0.5); Bilirubin Total 0.6 mg/dL (0.0-1.0); Blood Urea Nitrogen 5 mg/dL (9-16); Calcium 8.7 mg/dL (8.4-10.2); Carbon Dioxide 25 mmol/L (22-29); Chloride 99 mmol/L (96-108); Creatinine Clr Calc Pharmacy 122.8; Estimated Glomerular Filt Rate > 60; Glucose Random 107 mg/dL (60-115); Potassium 5.2 mmol/L (3.3-5.1); Sodium 134 mmol/L (135-145); Total Protein 6.4 g/dL (6.5-8.0)
[2022-05-20 15:07] VITALS: BP 141/85; PULSE 97; RESP 18; TEMP 36.4; O2SAT 100
== END 2022-05-20 15:48 | disposition home or self-care (01) ==
PROVIDERS: Emergency Provider Emergency Medicine; PCP Nurse Practitioner Family
DX: K20.90 Esophagitis, unspecified without bleeding (principal); R13.10 Dysphagia, unspecified; R07.89 Other chest pain; F17.210 Nicotine dependence, cigarettes, uncomplicated; Z71.6 Tobacco abuse counseling; Z79.899 Other long term (current) drug therapy
CPT/HCPCS: 36415; 71046; 80048; 80076; 85025; 99282; 99283

== ENCOUNTER 2022-08-06 08:16 | Day surgery (SDC) | payer MEDICARE, MEDICAID, SELFPAY ==
[2022-08-06] MEDS: Lactated Ringers 1,000 ML 50 ML IVCONT (08:44)
[2022-08-06 08:55] VITALS: BP 137/90; PULSE 95; RESP 18; TEMP 36.6; O2SAT 96; BMI 21.9
--- NOTE | 2022-08-06 08:56 | HO.ANESPROP2 ---
HPI - Anesthesia Eval Consult details Narrative: 61 yr old for screen of colon PMFSH Active Problems Active Problems: All Active Problems (Updated 07/31/22 @ 14:04 by Margie Noguera RN) Screening PSA (prostate specific antigen) (Acute) Tachycardia (Acute) Chronic left hip pain (Acute) Pre-op evaluation (Acute) Status post total hip replacement, left (Acute) Physical exam (Acute) Screening for colon cancer (Acute) Smoker (Acute) Past Medical History Medical History (Updated 07/31/22 @ 14:04 by Margie Noguera RN) Anxiety COVID-19 vaccine series completed Gout History of alcohol abuse History of recent fall HTN (hypertension) Hx of concussion Primary osteoarthritis of right hip Tobacco abuse Tongue abnormality Use of cane as ambulatory aid Wears dentures Family History Family History Father No problems noted. Mother Cirrhosis Family history of problems with anesthesia: No Surgical History Surgical History (Updated 07/31/22 @ 12:23 by Margie Noguera RN) History of arm fracture History of back surgery History of fracture of leg History of total left hip arthroplasty Hx of colonoscopy History of Problems with Anesthesia: No Social History Social History Housing: House Are you a primary healthcare consultant to a significant other at home: No Do you presently have visiting nurse or other home services: No Alcohol intake: former Patient Tobacco Use Status: Current everyday Tobacco user Tobacco use type: Cigarette Cigarette Packs Per Day: 1.5 Cigarettes Per Day: 30.0 Years Smoked: 46 Smoked in Last 30 Days: Yes e-Cigarette/Vaping Use: Never Used Patient Interested in Nicotine Replacement: No Second Hand Smoke Exposure: No Substance Use Type: Opiates Are you DNR?: No Advance Directives: No Advance Directives Information Provided: Yes Nutrition Risks: No Nutritional Risk service: No Current occupational status: retired Current occupation: rt handed Meds Allergies Allergy/AdvReac Type Severity Reaction Status Date / Time No Known Allergies Allergy Verified 07/31/22 12:28 Active Medications: Current Medications Albuterol Sulfate (Albuterol Sulfate (0.083%) 2.5 Mg/3 Ml Vial.Neb) 2.5 mg INHALE ONCE ONE Stop: 08/06/22 08:48 Lactated Ringer's (Lr) 1,000 mls @ 50 mls/hr IVCONT .Q20H DAMIÁN Last Admin: 08/06/22 08:44 Dose: 50 mls/hr Home Medications Medication Instructions Recorded Confirmed Last Taken Type multivitamin 1 tab PO DAILY 01/15/22 07/31/22 Unknown History Exam Exam Date and Time: August 06, 2022 0856 Height,Weight and Vital Signs: Height 5 ft 7 in Weight 63.503 kg Airway Mallampati Class: II TM Dist: >3cm Neck ROM: Full Heart: rrr Lungs: cta Assessment and Plan Assessment Anesthesia Assessment: Anesthesia Plan Discussed and Chart Reviewed Final Anesthetic Review Family History of Problems with Anesthesia: No History of Problems with Anesthesia: No NPO: Yes ASA Class: II Final Preanesthetic Review: No Changes in Pt Med Stat, Meds/Allgs Chart Reviewed, Consent Obtained/Reviewed and Anes Risks/Benef Reviewed Patient Risk: Low Procedure Risk: Low Anesthetic Plan Anesthetic Plan: MAC: Disposition: Standard PACU
[2022-08-06] MEDS: Albuterol Sulfate (0.083%) 2.5 MG/3 ML VIAL.NEB INHALE (08:58)
[2022-08-06 09:00] VITALS: PULSE 102; RESP 18; O2SAT 99
--- NOTE | 2022-08-06 09:16 | MHC.SHP ---
Pre-Procedural Eval Section A Date of Service: 08/06/22 Section B Chief Complaint: screening Relevant Family History (Specify if Yes): No Relevant Social History: Tobacco Use Present Medications: see Short Stay Collaborative assessment Medical History: Significant History (Anxiety COVID-19 vaccine series completed Gout History of alcohol abuse History of recent fall HTN (hypertension) Hx of concussion Primary osteoarthritis of right hip Tobacco abuse Tongue abnormality Use of cane as ambulatory aid Wears dentures) History of Previous Operations: Relevant previous surgery/procedure and date(s) (History of arm fracture History of back surgery History of fracture of leg History of total left hip arthroplasty Hx of colonoscopy) Allergies: Allergies Allergy/AdvReac Type Severity Reaction Status Date / Time No Known Allergies Allergy Verified 07/31/22 12:28 Review of Systems Sugical H&P ROS: Negative: Constitution, Cardiovascular, Respiratory, Neurological, Psychiatric, Hem-Onc, Allergic/Immunologic, Gastrointestinal, Genitourinary, Musculoskeletal, Integumentary, Endocrine and Eyes/Ears/Nose/Throat Exam Surgical H&P Exam: Normal: HEENT, Normal: Heart, Normal: Lungs, Normal: Extremities, Normal: Abdomen, Normal: Skin and Normal: Neurological Plan Diagnosis/Plan: Unchanged I have reviewed the history and physical and performed a pertinent physical examination on my patient. No changes have occurred unless specified. Time Spent With Patient Time: Total time managing care of this patient today ____ minutes.
--- NOTE | 2022-08-06 09:17 | W.PM.OPN ---
Operative Note Operative Note Date of Service: 08/06/22 Narrative: Operative Information Procedure Description: Colonoscopy Indication: screening Anesthesia: MAC COLONOSCOPY Instrument: Olympus variable stiffness pediatric scope 190L Colonoscopy Monitoring: Vital signs and clinical assessment, continuous EKG monitoring, Pulse oximetry, Carbon Dioxide monitoring and blood pressure monitoring were done throughout the procedure. Colon withdrawal time was 10 minutes. Procedure: The patient was placed in the left lateral decubitis position and pre-procedure medications were administered. After a digital rectal examination of the ano-rectum, the video colonoscope was inserted into the rectum and advanced through the colon to the cecum/TI. The colonoscope was slowly withdrawn in a retrograde panoramic fashion and the colon mucosa was carefully examined including a retroflexed view of the rectum. Findings and interventions are described below. Procedure Difficulty: moderate due to tight sigmoid angulation Findings: Terminal Ileum-not intubated due to looping Cecum:normal Ascending Colon: normal Transverse Colon - 8-9 mm sessile polyp removed with cold snare, another sessile polyp 5-7 mm removed with cold forceps Descending Colon:normal Sigmoid Colon: normal Rectum: Retroflexion with small internal hemorrhoids, grade I Anorectum - normal Colon preparation: Gibson Bowel Preparation Scale Right colon; 2 Transverse colon: 2 Left colon; 1-2 (0 = Unprepared colon segment with mucosa not seen due to solid stool that cannot be cleared. 1 = Portion of mucosa of the colon segment seen, but other areas of the colon segment not well seen due to staining, residual stool and/or opaque liquid. 2 = Minor amount of residual staining, small fragments of stool and/or opaque liquid, but mucosa of colon segment seen well. 3 = Entire mucosa of colon segment seen well with no residual staining, small fragments of stool or opaque liquid) Impression and Post Procedure Diagnosis: polyps internal hemorrhoids Plan: High fiber diet leaflet Avoid straining at stool, epsom salts and sitz bath, anusol supps or cream Repeat Colonoscopy in 5 years due fair left sided prep to or earlier if clinically indicated Above findings were reviewed with the patient and relevant handouts were provided if indicated.
[2022-08-06 10:05] VITALS: BP 84/40; PULSE 90; RESP 18; TEMP 36.6; O2SAT 98
[2022-08-06 10:20] VITALS: BP 104/64; PULSE 96; RESP 18; TEMP 36.6; O2SAT 98
== END 2022-08-06 10:50 | disposition home or self-care (01) ==
PROVIDERS: PCP Nurse Practitioner Family; Visit Provider Internal Medicine Gastroenterology
PROC: 0DJD8ZZ Inspection of Lower Intestinal Tract, Via Natural or Artificial Opening Endoscopic (ICD-10-PCS; CPT 45378; principal; 2022-08-06 09:50)
DX: Z12.11 Encounter for screening for malignant neoplasm of colon (principal); D12.3 Benign neoplasm of transverse colon; K64.0 First degree hemorrhoids; I10 Essential (primary) hypertension; K14.8 Other diseases of tongue; M10.9 Gout, unspecified; F41.1 Generalized anxiety disorder; Z99.89 Dependence on other enabling machines and devices; F17.210 Nicotine dependence, cigarettes, uncomplicated
CPT/HCPCS: 45385; 88305

== ENCOUNTER 2023-01-05 14:38 | Inpatient (IN) | payer MEDICARE, MEDICAID, SELFPAY ==
[2023-01-05] VITALS (9 sets, daily range): BP systolic 90–142; BP diastolic 55–84; PULSE 76–140; RESP 14–22; TEMP 36.5–37.9; O2SAT 94–99; BMI 22.5
--- NOTE | ~2023-01-05 | CT_ITS ---
EXAMINATION: CT ABDOMEN AND PELVIS WITHOUT CONTRAST CLINICAL INFORMATION: Abdominal pain COMPARISON: Previous MR of the abdomen 01/06/[address] 01/05/2023 TECHNIQUE: Multidetector volumetric imaging was performed from the superior aspect of the liver through the pubic symphysis. Sagittal and coronal reformatted images were obtained on the technologist's workstation. This CT examination was performed using dose optimization techniques as appropriate, variously including the following: *Automated exposure control *Adjustment of mA and/or kV according to patient size (this includes techniques or standardized protocols for targeted exams where dose is matched to indication/reason for exam; i.e. extremities or head) *Use of iterative reconstruction technique DLP: 486 mGy-cm FINDINGS: LUNG BASES: Right lower lobe atelectasis. Trace right pleural effusion. These findings are new from recent exam. LIVER, GALLBLADDER, AND BILIARY TREE: Cirrhotic liver with heterogeneous attenuation. This was found to represent areas of focal fatty infiltration and sparing. The gallbladder is contracted. There is fluid around the gallbladder. This may be related to liver disease. No gallstones are seen by CT. No biliary duct dilatation. PANCREAS: Small calcifications in the head of the pancreas. The pancreas is otherwise normal. The main pancreatic duct does not appear dilated. SPLEEN: Unremarkable. ADRENAL GLANDS: Unremarkable. KIDNEYS AND URETERS: The kidneys are normal in size, shape, and attenuation. No hydronephrosis, hydroureter. Tiny 1 mm stone in the mid left kidney. No perinephric stranding. BLADDER: Unremarkable. GASTROINTESTINAL TRACT: Mild diverticulosis. Stool throughout colon questionable for mild constipation. Multiple large bowel is otherwise normal. The appendix is normal. ABDOMINAL WALL: Small bilateral inguinal hernias containing fat. LYMPH NODES: Normal. VASCULAR: Unremarkable. PELVIC VISCERA: Unremarkable. OSSEOUS STRUCTURES: Left hip replacement. Degenerative changes of the spine. CT/CT abdomen pelvis wo IV con IMPRESSION: Cirrhotic-appearing liver with heterogeneous attenuation found to represent fatty infiltration and areas of focal fatty sparing on MRI. Contracted gallbladder. Small amount of fluid adjacent to the gallbladder. This may be related to liver disease. No gallstone seen by CT. Small calcifications in the pancreas. This is probably related to chronic pancreatitis. The pancreas is otherwise normal. Small left renal stone. Mild diverticulosis and question mild constipation. New right lower lobe atelectasis and trace right pleural effusion. Fleischner guidelines were followed.
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
--- NOTE | ~2023-01-05 | XR_ITS ---
EXAMINATION: XR ELBOW, RIGHT CLINICAL INFORMATION: Fall COMPARISON: None available. TECHNIQUE: AP, lateral, and oblique views of the right elbow. FINDINGS: The bones are intact. No fracture or joint effusion. Alignment is anatomic. Joint spaces are maintained. There is mild soft tissue swelling over the olecranon which could represent olecranon bursitis XR/XR elbow RT 2V IMPRESSION: No acute bony abnormality. Possible mild olecranon bursitis.
--- NOTE | ~2023-01-05 | MR_ITS ---
EXAMINATION: MR ABDOMEN WITHOUT AND WITH CONTRAST CLINICAL INFORMATION: Liver lesion. COMPARISON: 01/05/2023 TECHNIQUE: MR abdomen was performed without and with use of 7 mL intravenous Gadavist gadolinium contrast. Postcontrast images are performed in multiphase dynamic sequences. Imaging was performed in 3 planes. FINDINGS: LUNG BASES: Gynecomastia. LIVER, GALLBLADDER, AND BILIARY TREE: The liver measures 19.5 cm in sagittal dimension. Hepatic steatosis. The liver exhibits a nodular surface with heterogeneous parenchymal enhancement. Specifically no foci of arterial phase enhancement or washout characteristics. The gallbladder is distended. No gallstones. The common duct measures 6 mm at the william hepatis. No intrahepatic biliary ductal dilatation. PANCREAS: Trace peripancreatic fluid along the tail of the pancreas. No ductal dilatation. SPLEEN: Not enlarged. ADRENAL GLANDS: Mild thickening of the left adrenal gland. KIDNEYS AND URETERS: The kidneys are symmetric in size and enhancement. No hydronephrosis or perinephric stranding. GASTROINTESTINAL TRACT: No small bowel bowel obstruction. No abdominal ascites. LYMPH NODES: No bulky abdominal lymphadenopathy. VASCULAR: Normal caliber abdominal aorta. MR/MR abdomen wo/w con IMPRESSION: Possible acute pancreatitis involving the tail of the pancreas. Advise clinical correlation and correlation with pancreatic enzymes. Hepatomegaly and hepatic steatosis. Nodular liver with heterogeneous parenchymal enhancement. Specifically no foci of arterial phase enhancement or washout characteristics. Continued imaging surveillance is advised.
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
[2023-01-05] MEDS: 0.9 % Sodium Chloride 1,000 ML 999 ML IVCONT (15:21)
[2023-01-05 15:22] LABS: Basophils Percent Auto 0.5 % (0-2); Eosinophils Percent Auto 0.5 % (0-4); Hemoglobin 10.4 g/dl (14.0-18.0); Imm Gran Abs Auto 0.07 X10*3/uL (0.00-0.03); Imm Gran Pct Auto 0.8 % (0.0-0.4); Lymphocytes Absolute Auto 0.6 X10*3/uL (1.2-4.9); Lymphocytes Percent Auto 7.4 % (20-40); Mean Corpuscular HGB Conc 37.1 g/dl (31.0-36.0); Mean Corpuscular Hemoglobin 38.1 pg (27.0-33.0); Mean Corpuscular Volume 102.6 fL (80.0-98.0); Monocytes Absolute Auto 0.5 X10*3/uL (0.1-1.2); Monocytes Percent Auto 6.3 % (2-11); NRBC Pct Auto 0.6 /100WBC (0.0-0.2); Neutrophils Absolute Auto 7.1 x10*3/uL (2.0-8.3); Neutrophils Percent Auto 84.5 % (45-73); Red Blood Count 2.73 X10*6/uL (4.60-5.80); White Blood Count 8.4 X10*3/uL (4.8-10.8)
[2023-01-05 15:43] LABS: MANUAL DIFF FLAG SCAN; Platelet Count 76 X10*3/uL (160-400)
[2023-01-05 15:44] LABS: SLIDE REVIEW VERIFIED
--- NOTE | 2023-01-05 15:49 | ECG_ITS ---
Test Reason : CHEST PAIN Blood Pressure : / mmHG Vent. Rate : 124 BPM Atrial Rate : 124 BPM P-R Int : 174 ms QRS Dur : 076 ms QT Int : 294 ms P-R-T Axes : 064 033 070 degrees QTc Int : 422 ms Sinus tachycardia Low voltage QRS Borderline ECG When compared with ECG of 15-JAN-2022 12:37, Vent. rate has increased BY 47 BPM T wave amplitude has decreased in Lateral leads Referred By: Tiffanie Vaughn Electronically Signed By:ERIN VOGEL MD
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
[2023-01-05 15:53] LABS: Alanine Aminotransferase 17 U/L (0-40); Albumin Level 2.5 g/dL (3.5-5.0); Alkaline Phosphatase 272 U/L (39-117); Anion Gap 18 (12-20); Aspartate Amino Transferase 91 U/L (5-37); Bilirubin Direct 0.6 mg/dL (0.0-0.5); Bilirubin Total 1.4 mg/dL (0.0-1.0); Blood Urea Nitrogen 6 mg/dL (9-16); Calcium 8.1 mg/dL (8.4-10.2); Carbon Dioxide 18 mmol/L (22-29); Chloride 101 mmol/L (96-108); Creatinine Clr Calc Pharmacy 102.5; Estimated Glomerular Filt Rate > 60; Ethanol 130 mg/dL; Glucose Random 174 mg/dL (60-115); Magnesium 1.2 mg/dL (1.6-2.6); Potassium 3.2 mmol/L (3.3-5.1); Sodium 134 mmol/L (135-145); Total Protein 6.8 g/dL (6.5-8.0)
[2023-01-05] MEDS: Magnesium Sulfate/H2O 2 GM/50 ML PIGGYBACK IV (16:20)
[2023-01-05 16:43] LABS: Troponin-I High Sensitivity < 2.7 ng/L (<3.5-35.0)
--- NOTE | 2023-01-05 16:53 | PC.NURSE ---
pt medicated per AUG- pt was unable to swallow KCL tabs- PA Sebastian aware, no new orders at this time
[2023-01-05] MEDS: iohexoL 350 MG/ML 100 ML INFUS..BTL 85 ML IV (17:06)
--- NOTE | 2023-01-05 17:32 | PC.NURSE ---
Dr. Wolfe at bedside for FAST exam
[2023-01-05 17:54] LABS: Appearance Urine Clear; Color Urine Yellow; Glucose Urine UA Negative (Negative); Leukocyte Esterase Urine Negative (Negative); Nitrite Urine Negative (Negative); PH 7.5 (5.0-9.0); Specific Gravity - Urine >= 1.030 (1.005-1.025); UMIC TRIGGER UACC YES; Urine Blood Moderate (2+) (Negative); Urine Ketones Negative (Negative); Urine Protein Trace mg/dL (Neg-Trace)
[2023-01-05 17:57] LABS: Bacteria Urine None Seen (None Seen); RBC Urine >20 /HPF (0-2); Squamous Epithelial Cell Urine 0-2 /HPF (0-2); WBC Urine 0-5 /HPF (0-5)
[2023-01-05] MEDS: LORazepam 1 MG TABLET 2 MG PO (18:01)
--- NOTE | 2023-01-05 18:01 | PC.NURSE ---
patient awake and alert. skin pwd, speaking in full, clear sentences. resp even and non labored, ST via tele. patient noted to have hand tremors- daily drinker, medicated w/ PO ativan per order.
[2023-01-05 18:06] LABS: Amphetamine Screen Urine Not Detected (Not Detect); Barbiturates, Urine Not Detected (Not Detect); Benzodiazepines Screen Urine Not Detected (Not Detect); Cannabinoid Screen Urine Not Detected (Not Detect); Cocaine Screen Urine Not Detected (Not Detect); Fentanyl, urine Not Detected (Not Detect); Opiate Screen Urine Not Detected (Not Detect); Phencyclidine Screen Urine Not Detected (Not Detect)
--- NOTE | 2023-01-05 18:44 | PC.NURSE ---
patient continues to be resting on stretcer. awake and alert, skin pwd, resp even and non labored, speaking in full, clear sentences. continues 02/04 abdominal pain. continues with hand tremors. ST via tele at 112.
--- NOTE | 2023-01-05 21:21 | PC.NURSE ---
pt reoriented to surroundings, repositioned in bed, awaiting provider re-eval, call nielson within reach
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
[2023-01-06 01:20] VITALS: BP 109/64; PULSE 121; RESP 18; TEMP 37.1; O2SAT 94
[2023-01-06] MEDS: PHENobarbitaL sodium 130 MG/ML IM ONCE 312 MG IM (01:21)
[2023-01-06] MEDS: 0.9 % Sodium Chloride Flush 3 ML SYRINGE IVFLUSH ×3 (01:21→21:56)
--- NOTE | 2023-01-06 01:25 | PC.NURSE ---
patient awake and alert. skin pwd, resp even and non labored, speaking in full, clear sentences. ST via tele. incontinent large amount of watery brown stool. care provided and linens changed by ED techs. phenobarb protocol initiated. patient aware and agreeable to plan of care
--- NOTE | 2023-01-06 04:03 | PC.NURSE ---
pharmacy called to recheck the dosage of the phenobarbital order. dosage was incorrect and medication waisted in pyxis.
[2023-01-06] MEDS: PHENobarbitaL sodium 130 MG/ML VIAL IM Q3Hx2 234 MG IM ×2 (04:48→07:25)
--- NOTE | 2023-01-06 04:55 | MHC.EDTECH ---
Patient came over from [facility] asleep. Belonging List hasn't been done. Tech will go over belongings in the morning when patient is awake, and do an official Belonging list.
[2023-01-06 05:18] LABS: MANUAL DIFF FLAG NO
[2023-01-06 05:21] LABS: Basophils Percent Auto 0.3 % (0-2); Eosinophils Absolute Auto 0.1 X10*3/uL (0.0-0.4); Eosinophils Percent Auto 0.4 % (0-4); Hematocrit 26.2 % (42.0-52.0); Hemoglobin 9.7 g/dl (14.0-18.0); Imm Gran Abs Auto 0.06 X10*3/uL (0.00-0.03); Imm Gran Pct Auto 0.5 % (0.0-0.4); Lymphocytes Absolute Auto 1.5 X10*3/uL (1.2-4.9); Mean Corpuscular Hemoglobin 37.6 pg (27.0-33.0); Mean Corpuscular Volume 101.6 fL (80.0-98.0); Monocytes Absolute Auto 0.6 X10*3/uL (0.1-1.2); Monocytes Percent Auto 5.1 % (2-11); NRBC Pct Auto 0.3 /100WBC (0.0-0.2); Neutrophils Absolute Auto 9.3 x10*3/uL (2.0-8.3); Neutrophils Percent Auto 80.7 % (45-73); Red Blood Count 2.58 X10*6/uL (4.60-5.80); Red Cell Distribution Width 18.8 % (11.0-16.0); White Blood Count 11.5 X10*3/uL (4.8-10.8)
[2023-01-06 05:29] LABS: Platelet Count 65 X10*3/uL (160-400)
[2023-01-06 05:35] LABS: Anion Gap 13 (12-20); Blood Urea Nitrogen 5 mg/dL (9-16); Calcium 7.9 mg/dL (8.4-10.2); Carbon Dioxide 22 mmol/L (22-29); Chloride 99 mmol/L (96-108); Estimated Glomerular Filt Rate > 60; Glucose Random 129 mg/dL (60-115); Potassium 3.1 mmol/L (3.3-5.1); Sodium 131 mmol/L (135-145)
[2023-01-06 06:08] VITALS: BP 113/71; PULSE 104; RESP 28; TEMP 36.6; O2SAT 98
[2023-01-06] MEDS: Thiamine HCL 100 MG TABLET PO (07:31)
[2023-01-06] MEDS: Folic Acid 1 MG TABLET PO (07:31)
[2023-01-06 08:00] VITALS: BP 138/80; PULSE 108; RESP 19; TEMP 36.7; O2SAT 94
--- NOTE | 2023-01-06 08:19 | PHA.MEDREC ---
Pharmacy Consult ? Medication Reconciliation Pharmacy has completed the medication reconciliation. Patient reprots not medications. Misty Lozano, SivakumarD
--- NOTE | 2023-01-06 09:38 | P.PNIM_ITS ---
Subjective Subjective Date of Service: 01/06/23 Review of Systems Follow-up alcohol withdrawal Denied chest pain, nausea, vomiting, diarrhea Physical Exam Vital Signs: Vital Signs: Last Vital Signs Temp 98.1 F 01/06/23 08:00 Pulse 108 H 01/06/23 08:00 Resp 19 01/06/23 08:00 BP 138/80 01/06/23 08:00 Pulse Ox 94 01/06/23 08:00 O2 Del Method Nasal Cannula 01/06/23 08:00 O2 Flow Rate 2 01/06/23 06:08 BMI result Body Mass Index 22.5 Appearing in no acute distress lung sounds are clear to auscultation heart regular rate rhythm, clear S1, S2 positive bowel sounds, abdomen is soft, nontender neuro patient is alert x3, no focal deficits Objective Data Active Medications Acetaminophen (Acetaminophen 325 Mg Tablet) 650 mg PO Q6H PRN PRN Reason: Pain, Mild (Pain Scale 1-3) Docusate Sodium (Docusate Sodium 100 Mg Capsule) 100 mg PO DAILY PRN PRN Reason: Constipation Folic Acid (Folic Acid 1 Mg Tablet) 1 mg PO DAILY [facility] Last Admin: 01/06/23 07:31 Dose: 1 mg Documented By: ANSON Ondansetron HCl (Ondansetron Hcl 4 Mg/2 Ml Vial) 4 mg IVPUSH Q8H PRN PRN Reason: Nausea and Vomiting Pharmacy Consult (Consult Rx Etoh Phenob Im/Po) 1 each MISCELLANE ONCE PRN; Protocol PRN Reason: Consult order Phenobarbital (Phenobarbital 15 Mg Tablet) 45 mg PO BID [facility]; Protocol Stop: 01/08/23 09:01 Phenobarbital (Phenobarbital 30 Mg Tablet) 30 mg PO BID [facility]; Protocol Stop: 01/10/23 09:01 Phenobarbital (Phenobarbital 30 Mg Tablet) 30 mg PO Q24H [facility]; Protocol Stop: 01/11/23 21:01 Sodium Chloride (0.9 % Sodium Chloride Flush 3 Ml Syringe) 3 ml IVFLUSH QSHIFT [facility] Last Admin: 01/06/23 01:21 Dose: 3 ml Documented By: MIGDALIA Thiamine HCl (Thiamine Hcl 100 Mg Tablet) 100 mg PO DAILY [facility] Last Admin: 01/06/23 07:31 Dose: 100 mg Documented By: ANSON Labs 01/06/23 05:10 01/06/23 05:10 Labs: Laboratory Results - last 24 hr 01/05/23 01/05/23 01/05/23 15:13 15:13 15:13 MCV 102.6 H MCH 38.1 H MCHC 37.1 H RDW 19.0 H Plt Count 76 L D MPV Not Reportable Immature Gran % (Auto) 0.8 H Neut % (Auto) 84.5 H Lymph % (Auto) 7.4 L Tate % (Auto) 6.3 Eos % (Auto) 0.5 Baso % (Auto) 0.5 Lymph # (Auto) 0.6 L Tate # (Auto) 0.5 Eos # (Auto) 0.0 Baso # (Auto) 0.0 Abs Immat Gran (auto) 0.07 H Absolute Neuts (auto) 7.1 Absolute Nucleated RBC 0.050 H Nucleated RBC % (auto) 0.6 H Smear Tech's Comments VERIFIED Anion Gap 18 Estim Creat Clear Calc 102.5 Estimated GFR > 60 Random Glucose 174 H Calcium 8.1 L D Magnesium 1.2 L* Total Bilirubin 1.4 H Direct Bilirubin 0.6 H AST 91 H ALT 17 Alkaline Phosphatase 272 H Troponin I High Sens < 2.7 Total Protein 6.8 Albumin 2.5 L Urine Color Urine Appearance Urine pH Ur Specific [place] Urine Protein Urine Glucose (UA) Urine Ketones Urine Blood Urine Nitrite Ur Leukocyte Esterase Urine RBC Urine WBC Ur Squamous Epith Cells Urine Bacteria Hyaline Casts Urine Opiates Screen Urine Fentanyl Screen Ur Barbiturates Screen Ur Phencyclidine Scrn Ur Amphetamines Screen U Benzodiazepines Scrn Urine Cocaine Screen U Marijuana (THC) Screen Ethyl Alcohol 130 Blood Type Antibody Screen 01/05/23 01/05/23 01/05/23 17:45 17:45 17:45 MCV MCH MCHC RDW Plt Count MPV Immature Gran % (Auto) Neut % (Auto) Lymph % (Auto) [place] % (Auto) Eos % (Auto) Baso % (Auto) Lymph # (Auto) Tate # (Auto) Eos # (Auto) Baso # (Auto) Abs Immat Gran (auto) Absolute Neuts (auto) Absolute Nucleated RBC Nucleated RBC % (auto) Smear Tech's Comments Anion Gap Estim Creat Clear Calc Estimated GFR Random Glucose Calcium Magnesium Total Bilirubin Direct Bilirubin AST ALT Alkaline Phosphatase Troponin I High Sens Total Protein Albumin Urine Color Yellow Urine Appearance Clear Urine pH 7.5 Ur Specific [place] >= 1.030 H Urine Protein Trace Urine Glucose (UA) Negative Urine Ketones Negative Urine Blood Moderate (2+) H Urine Nitrite Negative Ur Leukocyte Esterase Negative Urine RBC >20 H Urine WBC 0-5 Ur Squamous Epith Cells 0-2 Urine Bacteria None Seen Hyaline Casts 3-5 Urine Opiates Screen Not Detected Urine Fentanyl Screen Not Detected Ur Barbiturates Screen Not Detected Ur Phencyclidine Scrn Not Detected Ur Amphetamines Screen Not Detected U Benzodiazepines Scrn Not Detected Urine Cocaine Screen Not Detected U Marijuana (THC) Screen Not Detected Ethyl Alcohol Blood Type A Negative Antibody Screen NEGATIVE 01/06/23 01/06/23 05:10 05:10 MCV 101.6 H MCH 37.6 H MCHC 37.0 H RDW 18.8 H Plt Count 65 L MPV 10.0 Immature Gran % (Auto) 0.5 H Neut % (Auto) 80.7 H Lymph % (Auto) 13.0 L Tate % (Auto) 5.1 Eos % (Auto) 0.4 Baso % (Auto) 0.3 Lymph # (Auto) 1.5 Tate # (Auto) 0.6 Eos # (Auto) 0.1 Baso # (Auto) 0.0 Abs Immat Gran (auto) 0.06 H Absolute Neuts (auto) 9.3 H Absolute Nucleated RBC 0.030 H Nucleated RBC % (auto) 0.3 H Smear Tech's Comments Anion Gap 13 Estim Creat Clear Calc 134.0 Estimated GFR > 60 Random Glucose 129 H Calcium 7.9 L Magnesium Total Bilirubin Direct Bilirubin AST ALT Alkaline Phosphatase Troponin I High Sens Total Protein Albumin Urine Color Urine Appearance Urine pH Ur Specific [place] Urine Protein Urine Glucose (UA) Urine Ketones Urine Blood Urine Nitrite Ur Leukocyte Esterase Urine RBC Urine WBC Ur Squamous Epith Cells Urine Bacteria Hyaline Casts Urine Opiates Screen Urine Fentanyl Screen Ur Barbiturates Screen Ur Phencyclidine Scrn Ur Amphetamines Screen U Benzodiazepines Scrn Urine Cocaine Screen U Marijuana (THC) Screen Ethyl Alcohol Blood Type Antibody Screen Assessment and Plan (1) Alcohol withdrawal: Status: Acute Plan 62-year-old male with past medical history of alcohol abuse comes into the hospital currently in alcohol withdrawal alcohol abuse with withdrawal drinks 10 shots a day interested in detox phenobarb protocol thiamine and folic acid addiction medicine consulted liver lesion has a liver lesion concerning for malignancy alpha-fetoprotein pending GI consult Hyperkalemia Likely secondary to heavy alcohol use Replete and follow BMP Hyponatremia Likely secondary to heavy alcohol use Encourage oral intake DVT prophylaxis: Lovenox attending Dr. Francis Continue hospital stay for treatment of alcohol withdrawal requiring phenobarbital protocol Time Spent With Patient Time: Total time managing care of this patient today ____ minutes. Quality Stroke Does the patient have a stroke diagnosis?: No VTE Prior VTE?: No VTE Risk Level:: Medical - low VTE Device Contraindication: Treatment Not Indicated VTE Drug Contraindication: Treatment Not Indicated
[2023-01-06] MEDS: Potassium Chloride ER 20 MEQ TAB.ER.PRT 40 MEQ PO (10:15)
[2023-01-06 14:15] LABS: Magnesium 1.5 mg/dL (1.6-2.6)
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
[2023-01-06 15:33] VITALS: BP 97/59; PULSE 99; RESP 20; TEMP 36.3; O2SAT 98
[2023-01-06 19:16] VITALS: BP 96/54; PULSE 110; RESP 17; TEMP 36.8; O2SAT 98
[2023-01-06] MEDS: PHENobarbitaL 15 MG TABLET 45 MG PO (21:56)
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
[2023-01-07 03:43] VITALS: BP 100/62; PULSE 70; RESP 17; TEMP 36.1; O2SAT 96
[2023-01-07 07:33] VITALS: BP 91/53; PULSE 111; RESP 18; TEMP 36.8; O2SAT 97
[2023-01-07 08:33] LABS: Alanine Aminotransferase 12 U/L (0-40); Albumin Level 2.3 g/dL (3.5-5.0); Alkaline Phosphatase 225 U/L (39-117); Aspartate Amino Transferase 53 U/L (5-37); Bilirubin Total 2.4 mg/dL (0.0-1.0); Magnesium 1.4 mg/dL (1.6-2.6); Total Protein 6.3 g/dL (6.5-8.0)
[2023-01-07] MEDS: Folic Acid 1 MG TABLET PO (08:43)
[2023-01-07] MEDS: PHENobarbitaL 15 MG TABLET 45 MG PO ×2 (08:43→20:41)
[2023-01-07] MEDS: Thiamine HCL 100 MG TABLET PO (08:43)
[2023-01-07] MEDS: 0.9 % Sodium Chloride Flush 3 ML SYRINGE IVFLUSH ×2 (08:44→14:10)
--- NOTE | 2023-01-07 10:23 | PC.NURSE ---
Brother MAN [facility]
[2023-01-07] MEDS: Acetaminophen 325 MG TABLET 650 MG PO (11:26)
[2023-01-07] MEDS: Magnesium Sulfate/H2O 2 GM/50 ML PIGGYBACK IV (11:27)
[2023-01-07] MEDS: Potassium Chloride Packet 20 MEQ PACKET 40 MEQ PO ×2 (11:33→20:48)
--- NOTE | 2023-01-07 11:58 | MHC.CM.PN ---
IMM 01/07/23 Male 62 DX ETOH Withdrawal. He lives in a house with a friend Edin [place]. He is independent with all functional mobility. He declined the offer to document a HCP. Patient received education on HCP; but is not interested. He was instructed to notify CM if he changes his mind and would like to document a HCP. DP home self care vs community resource info provided by the Recovery nurse. Patient's friend Edin will provide transport at discharge.
[2023-01-07] MEDS: Famotidine/PF 20 MG/2 ML VIAL IVPUSH (12:24)
--- NOTE | 2023-01-07 13:56 | MHC.RECOVRN ---
Attempted to meet with pt to follow up regarding OK. Pt asleep, does not wake to voice. Resources left at bedside.
[2023-01-07] MEDS: Albumin Human 25 % 100 ML IV ×2 (14:05→15:09)
[2023-01-07 15:13] VITALS: BP 107/71; PULSE 98; RESP 16; TEMP 36.6; O2SAT 95
[2023-01-07] MEDS: hydrOXYzine HCL 25 MG TABLET PO (15:20)
--- NOTE | 2023-01-07 15:59 | P.PNIM_ITS ---
Subjective Subjective Date of Service: 01/07/23 Interval History: seen and examined this morning Follow-up for alcohol withdrawal, liver lesion awake, alert. doesn't have a lot to say this morning having some epigastric discomfort, no nausea or vomiting Review of Systems Review of Systems: Yes all other systems are reviewed and are negative Constitutional Constitutional: Denies chills and Denies fever(s) Cardiovascular Cardiovascular: Denies chest pain, Denies palpitations and Denies dyspnea Respiratory Respiratory: Denies cough and Denies dyspnea Gastrointestinal Gastrointestinal: Reports abdominal pain, Denies nausea and Denies vomiting Endocrine Endocrine: Denies palpitations Physical Exam Vital Signs: Vital Signs: Last Vital Signs Temp 97.9 F 01/07/23 15:13 Pulse 98 01/07/23 15:13 Resp 16 01/07/23 15:13 BP 107/71 01/07/23 15:13 Pulse Ox 95 01/07/23 15:13 O2 Del Method Room Air 01/07/23 15:13 O2 Flow Rate 2 01/07/23 03:43 BMI result Body Mass Index 22.5 Const: General: comfortable, no acute distress, awake and Physically active Nutritional Appearance: average body habitus Orientation/consciousness: oriented to person and oriented to place Resp: Effort & Inspection: normal respiratory effort, able to speak in complete sentences, no respiratory distress and no use of accessory muscles Auscultation: clear to auscultation bilaterally Cardio: Rate: regular rate Heart sounds: S1 normal heart sound present and S2 normal heart sound present GI: Other: no tenderness on palpation Inspection: No distended Palpation (GI): Soft to palpation and no guarding Neuro: General: oriented to person, oriented to place, moves all extremities and CN's II-XI intact bilaterally Extrem: General: Yes no pedal edema Objective Data Active Medications Acetaminophen (Acetaminophen 325 Mg Tablet) 650 mg PO Q6H PRN PRN Reason: Pain, Mild (Pain Scale 1-3) Last Admin: 01/07/23 11:26 Dose: 650 mg Documented By: RAE Docusate Sodium (Docusate Sodium 100 Mg Capsule) 100 mg PO DAILY PRN PRN Reason: Constipation Famotidine (Famotidine/Pf 20 Mg/2 Ml Vial) 20 mg IVPUSH DAILY [facility] Last Admin: 01/07/23 12:24 Dose: 20 mg Documented By: RAE Folic Acid (Folic Acid 1 Mg Tablet) 1 mg PO DAILY [facility] Last Admin: 01/07/23 08:43 Dose: 1 mg Documented By: RAE Hydroxyzine HCl (Hydroxyzine Hcl 25 Mg Tablet) 25 mg PO Q8H PRN PRN Reason: Anxiety Last Admin: 01/07/23 15:20 Dose: 25 mg Documented By: RAE Ondansetron HCl (Ondansetron Hcl 4 Mg/2 Ml Vial) 4 mg IVPUSH Q8H PRN PRN Reason: Nausea and Vomiting Pharmacy Consult (Consult Rx Etoh Phenob Im/Po) 1 each MISCELLANE ONCE PRN; Protocol PRN Reason: Consult order Phenobarbital (Phenobarbital 15 Mg Tablet) 45 mg PO BID [facility]; Protocol Stop: 01/08/23 09:01 Last Admin: 01/07/23 08:43 Dose: 45 mg Documented By: RAE Phenobarbital (Phenobarbital 30 Mg Tablet) 30 mg PO BID [facility]; Protocol Stop: 01/10/23 09:01 Phenobarbital (Phenobarbital 30 Mg Tablet) 30 mg PO Q24H [facility]; Protocol Stop: 01/11/23 21:01 Potassium Chloride (Potassium Chloride Packet 20 Meq Packet) 40 meq PO BID [facility] Stop: 01/07/23 21:01 Last Admin: 01/07/23 11:33 Dose: 40 meq Documented By: RAE Sodium Chloride (0.9 % Sodium Chloride Flush 3 Ml Syringe) 3 ml IVFLUSH QSHIFT [facility] Last Admin: 01/07/23 14:10 Dose: 3 ml Documented By: RAE Thiamine HCl (Thiamine Hcl 100 Mg Tablet) 100 mg PO DAILY [facility] Last Admin: 01/07/23 08:43 Dose: 100 mg Documented By: RAE Labs 01/06/23 05:10 01/06/23 05:10 Labs: Laboratory Results - last 24 hr 01/07/23 08:02 Magnesium 1.4 L* Total Bilirubin 2.4 H Direct Bilirubin 1.0 H AST 53 H ALT 12 Alkaline Phosphatase 225 H Total Protein 6.3 L Albumin 2.3 L Assessment and Plan (1) Alcohol withdrawal: Status: Acute Plan 62-year-old male with past medical history of alcohol abuse comes into the hospital currently in alcohol withdrawal alcohol abuse with acute alcohol withdrawal drinks 10 shots a day interested in detox continue phenobarb protocol continue thiamine and folic acid addiction medicine consulted abdominal pain possible etoh gastritis vs pancreatitis lipase added IV pepcid liver lesion has a liver lesion concerning for malignancy alpha-fetoprotein pending seen by GI - MRI abdomen ordered - does not show evidence of liver lesion chronic macrocytic anemia slightly below baseline, above transfusion threshold follow CBC thrombocytopenia acute on chronic likely r/t etoh use hypokalemia/hypomagnesemia replace and follow mild transaminitis liver imaging with cirrhotic changes - related to etoh use Hyponatremia Likely secondary to heavy alcohol use Encourage oral intake DVT prophylaxis: mechanical devices due to thrombocytopenia attending Dr. Francis Continue hospital stay for treatment of alcohol withdrawal requiring phenobarbital protocol Time Spent With Patient Time: Total time managing care of this patient today ____ minutes. Quality Stroke Does the patient have a stroke diagnosis?: No VTE Prior VTE?: No VTE Risk Level:: Medical - low VTE Device Contraindication: Treatment Not Indicated VTE Drug Contraindication: Treatment Not Indicated
[2023-01-07] MEDS: Lactated Ringers 1,000 ML 80 ML IVCONT (16:14)
[2023-01-07 16:40] LABS: Lipase 8 U/L (8-78)
[2023-01-07] MEDS: ondansetron HCL 4 MG/2 ML VIAL IVPUSH (18:09)
[2023-01-07 19:13] VITALS: BP 105/74; PULSE 101; RESP 18; TEMP 37; O2SAT 100
[2023-01-08] MEDS: hydrOXYzine HCL 25 MG TABLET PO (03:00)
[2023-01-08 03:08] VITALS: BP 130/85; PULSE 113; RESP 19; TEMP 36.9; O2SAT 95
[2023-01-08 06:51] LABS: Eosinophils Absolute Auto 0.2 X10*3/uL (0.0-0.4); Eosinophils Percent Auto 1.5 % (0-4); PLT CLUMP 1; Red Blood Count 2.08 X10*6/uL (4.60-5.80); SCAN SMEAR FLAG 1
[2023-01-08 06:53] LABS: Basophils Percent Auto 0.4 % (0-2); Hematocrit 21.6 % (42.0-52.0); Hemoglobin 7.9 g/dl (14.0-18.0); Imm Gran Abs Auto 0.07 X10*3/uL (0.00-0.03); Imm Gran Pct Auto 0.7 % (0.0-0.4); Lymphocytes Absolute Auto 1.9 X10*3/uL (1.2-4.9); Lymphocytes Percent Auto 18.3 % (20-40); MANUAL DIFF FLAG SCAN; Mean Corpuscular HGB Conc 36.6 g/dl (31.0-36.0); Mean Corpuscular Volume 103.8 fL (80.0-98.0); Mean Platelet Volume 11.8 fL (9.4-12.4); Monocytes Absolute Auto 0.6 X10*3/uL (0.1-1.2); Monocytes Percent Auto 6.3 % (2-11); NRBC Pct Auto 0.5 /100WBC (0.0-0.2); Neutrophils Absolute Auto 7.5 x10*3/uL (2.0-8.3); Neutrophils Percent Auto 72.8 % (45-73); Red Cell Distribution Width 18.6 % (11.0-16.0)
[2023-01-08 07:12] LABS: Alanine Aminotransferase 10 U/L (0-40); Albumin Level 2.7 g/dL (3.5-5.0); Alkaline Phosphatase 185 U/L (39-117); Anion Gap 11 (12-20); Aspartate Amino Transferase 48 U/L (5-37); Bilirubin Direct 0.9 mg/dL (0.0-0.5); Bilirubin Total 1.9 mg/dL (0.0-1.0); Blood Urea Nitrogen 4 mg/dL (9-16); Calcium 8.3 mg/dL (8.4-10.2); Carbon Dioxide 22 mmol/L (22-29); Chloride 100 mmol/L (96-108); Creatinine Clr Calc Pharmacy 124.5; Estimated Glomerular Filt Rate > 60; Glucose Random 152 mg/dL (60-115); Magnesium 1.5 mg/dL (1.6-2.6); Potassium 3.9 mmol/L (3.3-5.1); Sodium 129 mmol/L (135-145)
[2023-01-08 07:15] LABS: Platelet Count 77 X10*3/uL (160-400); White Blood Count 10.2 X10*3/uL (4.8-10.8)
[2023-01-08 07:17] LABS: SLIDE REVIEW VERIFIED
[2023-01-08 08:00] VITALS: BP 97/62; PULSE 112; RESP 16; TEMP 36.9; O2SAT 92
[2023-01-08] MEDS: Magnesium Sulfate/H2O 2 GM/50 ML PIGGYBACK IV (08:08)
[2023-01-08] MEDS: PHENobarbitaL 15 MG TABLET 45 MG PO (08:11)
[2023-01-08] MEDS: Famotidine/PF 20 MG/2 ML VIAL IVPUSH (08:11)
[2023-01-08] MEDS: 0.9 % Sodium Chloride Flush 3 ML SYRINGE IVFLUSH ×2 (08:11→16:00)
[2023-01-08] MEDS: Folic Acid 1 MG TABLET PO (08:11)
[2023-01-08] MEDS: Thiamine HCL 100 MG TABLET PO (08:11)
[2023-01-08 08:27] LABS: Iron 75 mcg/dL (45-160); Percent Iron Saturation 50 % (15-50); Total Iron Binding Capacity 151 mcg/dL (228-428); Unsaturated Iron Binding 76 ug/dL
[2023-01-08 08:47] LABS: Ferritin 758 ng/mL (20-250)
[2023-01-08 10:52] LABS: Folate 18.3 ng/mL (> or = 4.0); Vitamin B12 987 pg/mL (200-900)
[2023-01-08 11:10] LABS: Osmolality Urine 488 mosm/kg (373-1093)
[2023-01-08 13:23] LABS: Immature Retic Fraction 26.6 % (2.3-13.4); Retic HGB Equivalent 38.6 pg (30.0-35.0); Reticulocyte Percent 1.9 % (0.5-1.8); Reticulocytes Absolute 0.044 X10*6/uL (0.026-0.095)
[2023-01-08] MEDS: Omeprazole 40 MG CAPSULE.DR PO (13:43)
--- NOTE | 2023-01-08 13:57 | MHC.RECOVRN ---
Follow up with pt after leaving resources regarding OK and [facility] at bedside yesterday. Pt awake, in chair eating lunch, appears comfortable. Pt reports he has yet to look over resources and will after lunch. Will continue to follow.
[2023-01-08 14:05] LABS: Lactate Dehydrogenase 244 U/L (118-273)
--- NOTE | 2023-01-08 14:16 | MHC.CM.PN ---
DP Patient has received community resource information from Addiction medicine. DP Home self care. He will arrange for a ride home when discharged.
--- NOTE | 2023-01-08 15:44 | P.PNIM_ITS ---
Subjective Subjective Date of Service: 01/08/23 Interval History: seen and examined this morning follow up for etoh withdrawal reporting epigastric abdominal pain, no nausea no sob, chest pain still somewhat vague historian Review of Systems Review of Systems: Yes all other systems are reviewed and are negative Constitutional Constitutional: Denies chills and Denies fever(s) ENT Ears, Nose, Mouth, and Throat: Denies dizziness Cardiovascular Cardiovascular: Denies chest pain, Denies palpitations and Denies dyspnea Respiratory Respiratory: Denies cough and Denies dyspnea Gastrointestinal Gastrointestinal: Reports abdominal pain, Denies nausea and Denies vomiting Neurologic Neurologic: Denies dizziness Endocrine Endocrine: Denies palpitations Physical Exam Vital Signs: Vital Signs: Last Vital Signs Temp 98.5 F 01/08/23 08:00 Pulse 112 H 01/08/23 08:00 Resp 16 01/08/23 08:00 BP 97/62 01/08/23 08:00 Pulse Ox 92 01/08/23 08:00 O2 Del Method Nasal Cannula 01/08/23 08:00 O2 Flow Rate 2 01/08/23 08:00 BMI result Body Mass Index 22.5 Const: General: comfortable, no acute distress and awake Nutritional Appearance: average body habitus Orientation/consciousness: oriented to person and oriented to place Resp: Effort & Inspection: normal respiratory effort, able to speak in complete sentences, no respiratory distress and no use of accessory muscles Auscultation: clear to auscultation bilaterally Cardio: Rate: regular rate Heart sounds: S1 normal heart sound present and S2 normal heart sound present GI: Other: tenderness to palpation epigastrum, no guarding, no rebound Inspection: No distended Palpation (GI): Soft to palpation Neuro: General: oriented to person, oriented to place, moves all extremities and CN's II-XI intact bilaterally Extrem: General: Yes no pedal edema Objective Data Active Medications Acetaminophen (Acetaminophen 325 Mg Tablet) 650 mg PO Q6H PRN PRN Reason: Pain, Mild (Pain Scale 1-3) Last Admin: 01/07/23 11:26 Dose: 650 mg Documented By: RAE Docusate Sodium (Docusate Sodium 100 Mg Capsule) 100 mg PO DAILY PRN PRN Reason: Constipation Folic Acid (Folic Acid 1 Mg Tablet) 1 mg PO DAILY [facility] Last Admin: 01/08/23 08:11 Dose: 1 mg Documented By: SVETA Hydroxyzine HCl (Hydroxyzine Hcl 25 Mg Tablet) 25 mg PO Q8H PRN PRN Reason: Anxiety Last Admin: 01/08/23 03:00 Dose: 25 mg Documented By: MARLON Omeprazole (Omeprazole 40 Mg Capsule.Dr) 40 mg PO DAILY@0630 [facility] OF [facility] Last Admin: 01/08/23 13:43 Dose: 40 mg Documented By: SVETA Ondansetron HCl (Ondansetron Hcl 4 Mg/2 Ml Vial) 4 mg IVPUSH Q8H PRN PRN Reason: Nausea and Vomiting Last Admin: 01/07/23 18:09 Dose: 4 mg Documented By: RAE Pharmacy Consult (Consult Rx Etoh Phenob Im/Po) 1 each MISCELLANE ONCE PRN; Protocol PRN Reason: Consult order Phenobarbital (Phenobarbital 30 Mg Tablet) 30 mg PO BID [facility]; Protocol Stop: 01/10/23 09:01 Phenobarbital (Phenobarbital 30 Mg Tablet) 30 mg PO Q24H [facility]; Protocol Stop: 01/11/23 21:01 Sodium Chloride (0.9 % Sodium Chloride Flush 3 Ml Syringe) [facility] Last Admin: 01/08/23 08:11 Dose: 3 ml Documented By: SVETA Sucralfate (Sucralfate Oral Suspension 1 Gm/10 Ml Oral.Susp) 1 gm PO QIDACHS ON LICENSE OF [facility] Thiamine HCl (Thiamine Hcl 100 Mg Tablet) 100 mg PO DAILY [facility] Last Admin: 01/08/23 08:11 Dose: 100 mg Documented By: SVETA Labs 01/08/23 05:42 01/08/23 05:42 Labs: Laboratory Results - last 24 hr 01/07/23 01/08/23 01/08/23 08:02 05:42 05:42 MCV 103.8 H MCH 38.0 H MCHC 36.6 H RDW 18.6 H Plt Count 77 L MPV 11.8 Immature Gran % (Auto) 0.7 H Neut % (Auto) 72.8 Lymph % (Auto) 18.3 L [place] % (Auto) 6.3 Eos % (Auto) 1.5 Baso % (Auto) 0.4 Lymph # (Auto) 1.9 [place] # (Auto) 0.6 Eos # (Auto) 0.2 Baso # (Auto) 0.0 Abs Immat Gran (auto) 0.07 H Absolute Neuts (auto) 7.5 Absolute Nucleated RBC 0.050 H Nucleated RBC % (auto) 0.5 H Smear Tech's Comments VERIFIED Absolute Retic Percent Retic Immature Retic Fraction Retic Hgb Equivalent Anion Gap 11 L Estim Creat Clear Calc 124.5 Estimated GFR > 60 Random Glucose 152 H Calcium 8.3 L Magnesium 1.5 L Iron 75 TIBC 151 L % Saturation 50 Unsat Iron Binding 76 Ferritin 758 H Total Bilirubin 1.9 H Direct Bilirubin 0.9 H AST 48 H ALT 10 Alkaline Phosphatase 185 H Lactate Dehydrogenase Total Protein 6.0 L Albumin 2.7 L Lipase 8 Vitamin B12 Folate Urine Osmolality Ur Random Sodium 01/08/23 01/08/23 01/08/23 09:33 10:18 10:18 MCV MCH MCHC RDW Plt Count MPV Immature Gran % (Auto) Neut % (Auto) Lymph % (Auto) [place] % (Auto) Eos % (Auto) Baso % (Auto) Lymph # (Auto) [place] # (Auto) Eos # (Auto) Baso # (Auto) Abs Immat Gran (auto) Absolute Neuts (auto) Absolute Nucleated RBC Nucleated RBC % (auto) Smear Tech's Comments Absolute Retic Percent Retic Immature Retic Fraction Retic Hgb Equivalent Anion Gap Estim Creat Clear Calc Estimated GFR Random Glucose Calcium Magnesium Iron TIBC % Saturation Unsat Iron Binding Ferritin Total Bilirubin Direct Bilirubin AST ALT Alkaline Phosphatase Lactate Dehydrogenase Total Protein Albumin Lipase Vitamin B12 987 H Folate 18.3 Urine Osmolality 488 Ur Random Sodium 138.0 01/08/23 01/08/23 13:13 13:13 MCV MCH MCHC RDW Plt Count MPV Immature Gran % (Auto) Neut % (Auto) Lymph % (Auto) [place] % (Auto) Eos % (Auto) Baso % (Auto) Lymph # (Auto) [place] # (Auto) Eos # (Auto) Baso # (Auto) Abs Immat Gran (auto) Absolute Neuts (auto) Absolute Nucleated RBC Nucleated RBC % (auto) Smear Tech's Comments Absolute Retic 0.044 Percent Retic 1.9 H Immature Retic Fraction 26.6 H Retic Hgb Equivalent 38.6 H Anion Gap Estim Creat Clear Calc Estimated GFR Random Glucose Calcium Magnesium Iron TIBC % Saturation Unsat Iron Binding Ferritin Total Bilirubin Direct Bilirubin AST ALT Alkaline Phosphatase Lactate Dehydrogenase 244 Total Protein Albumin Lipase Vitamin B12 Folate Urine Osmolality Ur Random Sodium Assessment and Plan (1) Alcohol withdrawal: Status: Acute Plan 62-year-old male with past medical history of alcohol abuse comes into the hospital in alcohol withdrawal alcohol abuse with acute alcohol withdrawal continue phenobarb protocol continue thiamine and folic acid addiction medicine followiing abdominal pain possible etoh gastritis lipase negative started on PPI, discussed with GI, rec to add carafate no overt bleeding - no indication for scope at this time acute on chronic macrocytic anemia H/H continues to trend down not c/w iron deficiency. b12, folate wnl. will check hemolysis labs. stool occult pending above transfusion threshold follow cbc liver lesion has a liver lesion concerning for malignancy alpha-fetoprotein pending seen by GI - MRI abdomen ordered - does not show evidence of liver lesion thrombocytopenia acute on chronic likely r/t etoh use hypokalemia/hypomagnesemia replace and follow mild transaminitis liver imaging with cirrhotic changes - related to etoh use overall LFTS trending down Hyponatremia Likely secondary toalcohol use Encourage oral intake DVT prophylaxis: mechanical devices due to thrombocytopenia attending Dr. Francis Continue hospital stay for treatment of alcohol withdrawal requiring phenobarbital protocol Time Spent With Patient Time: Total time managing care of this patient today ____ minutes. Quality Stroke Does the patient have a stroke diagnosis?: No VTE Prior VTE?: No VTE Risk Level:: Medical - low VTE Device Contraindication: Treatment Not Indicated VTE Drug Contraindication: Treatment Not Indicated
[2023-01-08 16:00] VITALS: BP 101/61; PULSE 99; RESP 20; TEMP 36.8; O2SAT 96
[2023-01-08] MEDS: Sucralfate Oral Suspension 1 GM/10 ML ORAL.SUSP PO ×2 (16:00→20:16)
[2023-01-08] MEDS: Lactated Ringers 1,000 ML 80 ML IVCONT (16:04)
[2023-01-08 17:04] LABS: Hematocrit 22.9 % (42.0-52.0); Hemoglobin 8.4 g/dl (14.0-18.0)
[2023-01-08 20:00] VITALS: BP 114/69; PULSE 97; RESP 20; TEMP 37.1; O2SAT 95
[2023-01-08] MEDS: PHENobarbitaL 30 MG TABLET PO (20:15)
[2023-01-08 23:29] VITALS: BP 109/56; PULSE 117; RESP 18; TEMP 36.2; O2SAT 99
[2023-01-09] MEDS: Lactated Ringers 1,000 ML 80 ML IVCONT ×2 (02:27→14:19)
[2023-01-09] MEDS: hydrOXYzine HCL 25 MG TABLET PO (02:33)
[2023-01-09 03:05] VITALS: BP 105/59; PULSE 116; RESP 18; TEMP 37.3; O2SAT 99
[2023-01-09] MEDS: Omeprazole 40 MG CAPSULE.DR PO (05:46)
[2023-01-09 06:38] LABS: Hematocrit 21.5 % (42.0-52.0); Hemoglobin 7.9 g/dl (14.0-18.0); Mean Corpuscular HGB Conc 36.7 g/dl (31.0-36.0); Mean Corpuscular Volume 103.4 fL (80.0-98.0); Mean Platelet Volume 11.7 fL (9.4-12.4); NRBC Pct Auto 0.7 /100WBC (0.0-0.2); PLT CLUMP 1; Red Blood Count 2.08 X10*6/uL (4.60-5.80); Red Cell Distribution Width 18.9 % (11.0-16.0); White Blood Count 10.4 X10*3/uL (4.8-10.8)
[2023-01-09 06:39] LABS: Platelet Count 92 X10*3/uL (160-400)
[2023-01-09 06:44] LABS: Anion Gap 11 (12-20); Blood Urea Nitrogen 4 mg/dL (9-16); Carbon Dioxide 20 mmol/L (22-29); Chloride 100 mmol/L (96-108); Creatinine Clr Calc Pharmacy 139.4; Estimated Glomerular Filt Rate > 60; Glucose Random 113 mg/dL (60-115); Magnesium 1.6 mg/dL (1.6-2.6); Sodium 127 mmol/L (135-145)
[2023-01-09 07:17] VITALS: BP 90/54; PULSE 118; RESP 18; TEMP 36.1; O2SAT 94
--- NOTE | 2023-01-09 07:34 | HO.PM.IMPN ---
Subjective Subjective Date of Service: 01/09/23 Interval History: confused, still with signs of withdrawal Physical Exam Vital Signs: Vital Signs: Last Vital Signs Temp 97 F 01/09/23 07:17 Pulse 118 H 01/09/23 07:17 Resp 18 01/09/23 07:17 BP 90/54 L 01/09/23 07:17 Pulse Ox 94 01/09/23 07:17 O2 Del Method Room Air 01/09/23 07:17 O2 Flow Rate 1.5 01/09/23 03:05 BMI result Body Mass Index 22.5 Const: Other: General: AO X 1, no acute distress Resp: CTA bilateral CVS: S1,S2,RRR GI: +BS, NT, no distention Skin: No rash Neuro: motor grossly intact Psych: appropriate affect Objective Data Active Medications Acetaminophen (Acetaminophen 325 Mg Tablet) 650 mg PO Q6H PRN PRN Reason: Pain, Mild (Pain Scale 1-3) Last Admin: 01/07/23 11:26 Dose: 650 mg Documented By: RAE Docusate Sodium (Docusate Sodium 100 Mg Capsule) 100 mg PO DAILY PRN PRN Reason: Constipation Folic Acid (Folic Acid 1 Mg Tablet) 1 mg PO DAILY [facility] Last Admin: 01/08/23 08:11 Dose: 1 mg Documented By: SVETA Hydroxyzine HCl (Hydroxyzine Hcl 25 Mg Tablet) 25 mg PO Q8H PRN PRN Reason: Anxiety Last Admin: 01/09/23 02:33 Dose: 25 mg Documented By: RATNA Lactated Ringer's (Lr) 1,000 mls @ 80 mls/hr IVCONT .[id number] [facility] Last Admin: 01/09/23 02:27 Dose: 80 mls/hr Documented By: RATNA Omeprazole (Omeprazole 40 Mg Capsule.Dr) 40 mg PO DAILY@0630 [facility] Last Admin: 01/09/23 05:46 Dose: 40 mg Documented By: RATNA Ondansetron HCl (Ondansetron Hcl 4 Mg/2 Ml Vial) 4 mg IVPUSH Q8H PRN PRN Reason: Nausea and Vomiting Last Admin: 01/07/23 18:09 Dose: 4 mg Documented By: RAE Pharmacy Consult (Consult Rx Etoh Phenob Im/Po) 1 each MISCELLANE ONCE PRN; Protocol PRN Reason: Consult order Phenobarbital (Phenobarbital 30 Mg Tablet) 30 mg PO BID [facility]; Protocol Stop: 01/10/23 09:01 Last Admin: 01/08/23 20:15 Dose: 30 mg Documented By: RATNA Phenobarbital (Phenobarbital 30 Mg Tablet) 30 mg PO Q24H [facility]; Protocol Stop: 01/11/23 21:01 Sodium Chloride (0.9 % Sodium Chloride Flush 3 Ml Syringe) 3 ml IVFLUSH QSHIFT [facility] Last Admin: 01/09/23 00:40 Dose: Not Given Documented By: RATNA Non-Admin Reason: IV Running Sucralfate (Sucralfate Oral Suspension 1 Gm/10 Ml Oral.Susp) 1 gm PO QIDACHS [facility] Last Admin: 01/08/23 20:16 Dose: 1 gm Documented By: RATNA Thiamine HCl (Thiamine Hcl 100 Mg Tablet) 100 mg PO DAILY [facility] Last Admin: 01/08/23 08:11 Dose: 100 mg Documented By: SVETA Labs 01/09/23 05:48 01/09/23 05:48 Labs: Laboratory Results - last 24 hr 01/08/23 01/08/23 01/08/23 05:42 09:33 10:18 MCV MCH MCHC RDW Plt Count MPV Absolute Nucleated RBC Nucleated RBC % (auto) Absolute Retic Percent Retic Immature Retic Fraction Retic Hgb Equivalent Anion Gap Estim Creat Clear Calc Estimated GFR Random Glucose Calcium Magnesium Iron 75 TIBC 151 L % Saturation 50 Unsat Iron Binding 76 Ferritin 758 H Lactate Dehydrogenase Vitamin B12 987 H Folate 18.3 Urine Osmolality 488 Ur Random Sodium 01/08/23 01/08/23 01/08/23 10:18 13:13 13:13 MCV MCH MCHC RDW Plt Count MPV Absolute Nucleated RBC Nucleated RBC % (auto) Absolute Retic 0.044 Percent Retic 1.9 H Immature Retic Fraction 26.6 H Retic Hgb Equivalent 38.6 H Anion Gap Estim Creat Clear Calc Estimated GFR Random Glucose Calcium Magnesium Iron TIBC % Saturation Unsat Iron Binding Ferritin Lactate Dehydrogenase 244 Vitamin B12 Folate Urine Osmolality Ur Random Sodium 138.0 01/09/23 01/09/23 05:48 05:48 MCV 103.4 H MCH 38.0 H MCHC 36.7 H RDW 18.9 H Plt Count 92 L MPV 11.7 Absolute Nucleated RBC 0.070 H Nucleated RBC % (auto) 0.7 H Absolute Retic Percent Retic Immature Retic Fraction Retic Hgb Equivalent Anion Gap 11 L Estim Creat Clear Calc 139.4 Estimated GFR > 60 Random Glucose 113 Calcium 8.0 L Magnesium 1.6 Iron TIBC % Saturation Unsat Iron Binding Ferritin Lactate Dehydrogenase Vitamin B12 Folate Urine Osmolality Ur Random Sodium Assessment and Plan (1) Alcohol withdrawal: Status: Acute Plan 62-year-old male with past medical history of alcohol abuse comes into the hospital in alcohol withdrawal alcohol abuse with acute alcohol withdrawal continue phenobarb protocol continue thiamine and folic acid addiction medicine followiing abdominal pain possible etoh gastritis lipase negative carafate and PPI as rec by GI acute on chronic macrocytic anemia H/H continues to trend down not c/w iron deficiency. b12, folate wnl. will check hemolysis labs. stool occult pending above transfusion threshold follow cbc liver lesion has a liver lesion concerning for malignancy alpha-fetoprotein pending seen by GI - MRI abdomen shows cirrhosis only no mass thrombocytopenia acute on chronic likely r/t etoh use hypokalemia/hypomagnesemia replaced and resolved. mild transaminitis liver imaging with cirrhotic changes - related to etoh use overall LFTS trending down Hyponatremia, 127 today Likely secondary toalcohol use fluid water restriction DVT prophylaxis: mechanical devices due to thrombocytopenia attending Dr. Francis Continue hospital stay for treatment of alcohol withdrawal requiring phenobarbital protocol Time Spent With Patient Time: Total time managing care of this patient today ____ minutes. Quality Stroke Does the patient have a stroke diagnosis?: No VTE Prior VTE?: No VTE Risk Level:: Medical - low VTE Device Contraindication: Treatment Not Indicated VTE Drug Contraindication: Treatment Not Indicated
[2023-01-09 07:45] VITALS: BP 104/62
[2023-01-09] MEDS: Sucralfate Oral Suspension 1 GM/10 ML ORAL.SUSP PO ×4 (07:49→20:37)
[2023-01-09] MEDS: PHENobarbitaL 30 MG TABLET PO ×2 (07:49→20:37)
[2023-01-09] MEDS: Thiamine HCL 100 MG TABLET PO (07:49)
[2023-01-09] MEDS: Folic Acid 1 MG TABLET PO (07:49)
[2023-01-09] MEDS: Docusate Sodium 100 MG CAPSULE PO (07:53)
[2023-01-09 10:49] VITALS: PULSE 99
[2023-01-09] MEDS: 0.9 % Sodium Chloride Flush 3 ML SYRINGE IVFLUSH ×2 (14:20→20:36)
[2023-01-09 15:45] VITALS: BP 129/71; PULSE 92; RESP 14; TEMP 36.5; O2SAT 94
[2023-01-09 19:41] VITALS: BP 126/76; PULSE 100; RESP 20; TEMP 36.9; O2SAT 97
[2023-01-10 02:09] LABS: OBS Int Ctl Valid YES; OBS1 NEGATIVE (NEGATIVE)
[2023-01-10 03:49] VITALS: BP 119/59; PULSE 111; RESP 18; TEMP 37.5; O2SAT 97
[2023-01-10] MEDS: Omeprazole 40 MG CAPSULE.DR PO (05:54)
[2023-01-10 06:57] VITALS: BP 130/82; PULSE 110; RESP 18; TEMP 36.1; O2SAT 96
[2023-01-10] MEDS: Sucralfate Oral Suspension 1 GM/10 ML ORAL.SUSP PO ×4 (08:28→21:03)
[2023-01-10] MEDS: Thiamine HCL 100 MG TABLET PO (08:28)
[2023-01-10] MEDS: Folic Acid 1 MG TABLET PO (08:28)
[2023-01-10] MEDS: PHENobarbitaL 30 MG TABLET PO ×2 (08:28→21:03)
[2023-01-10] MEDS: 0.9 % Sodium Chloride Flush 3 ML SYRINGE IVFLUSH ×2 (08:28→20:01)
[2023-01-10 08:46] LABS: Anion Gap 11 (12-20); Blood Urea Nitrogen 5 mg/dL (9-16); Calcium 8.1 mg/dL (8.4-10.2); Carbon Dioxide 20 mmol/L (22-29); Chloride 100 mmol/L (96-108); Creatinine Clr Calc Pharmacy 120.2; Estimated Glomerular Filt Rate > 60; Glucose Random 128 mg/dL (60-115); Magnesium 1.5 mg/dL (1.6-2.6); NRBC Pct Auto 0.5 /100WBC (0.0-0.2); PLT CLUMP 1; Potassium 3.6 mmol/L (3.3-5.1); Sodium 127 mmol/L (135-145)
[2023-01-10 08:48] LABS: Hematocrit 21.7 % (42.0-52.0); Mean Corpuscular HGB Conc 36.9 g/dl (31.0-36.0); Mean Corpuscular Hemoglobin 37.9 pg (27.0-33.0); Mean Corpuscular Volume 102.8 fL (80.0-98.0); Mean Platelet Volume 11.8 fL (9.4-12.4); Red Blood Count 2.11 X10*6/uL (4.60-5.80); Red Cell Distribution Width 19.9 % (11.0-16.0)
[2023-01-10 08:51] LABS: Platelet Count 145 X10*3/uL (160-400); White Blood Count 10.1 X10*3/uL (4.8-10.8)
[2023-01-10] MEDS: Magnesium Sulfate/H2O 2 GM/50 ML PIGGYBACK IV (13:37)
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
[2023-01-10 15:39] VITALS: BP 103/66; PULSE 93; RESP 18; TEMP 36.9; O2SAT 96
[2023-01-10] MEDS: Nicotine 14 MG PATCH.TD24 TRANSDERMA (17:07)
[2023-01-10] MEDS: Magnesium Oxide 400 MG TABLET PO (17:07)
[2023-01-10 20:00] VITALS: BP 131/82; PULSE 100; RESP 19; TEMP 36.4; O2SAT 96
[2023-01-11 03:36] VITALS: BP 101/61; PULSE 100; RESP 18; TEMP 36.9; O2SAT 99
[2023-01-11] MEDS: Omeprazole 40 MG CAPSULE.DR PO (05:37)
[2023-01-11 07:08] VITALS: BP 101/68; PULSE 105; RESP 20; TEMP 37.4; O2SAT 97
[2023-01-11] MEDS: Sucralfate Oral Suspension 1 GM/10 ML ORAL.SUSP PO ×4 (07:51→21:23)
[2023-01-11] MEDS: 0.9 % Sodium Chloride Flush 3 ML SYRINGE IVFLUSH ×3 (07:52→20:14)
[2023-01-11 08:32] LABS: Alanine Aminotransferase 11 U/L (0-40); Albumin Level 2.5 g/dL (3.5-5.0); Alkaline Phosphatase 186 U/L (39-117); Anion Gap 10 (12-20); Aspartate Amino Transferase 49 U/L (5-37); Bilirubin Direct 0.8 mg/dL (0.0-0.5); Bilirubin Total 1.3 mg/dL (0.0-1.0); Blood Urea Nitrogen 5 mg/dL (9-16); Calcium 8.4 mg/dL (8.4-10.2); Carbon Dioxide 22 mmol/L (22-29); Chloride 101 mmol/L (96-108); Creatinine Clr Calc Pharmacy 129.1; Estimated Glomerular Filt Rate > 60; Glucose Random 109 mg/dL (60-115); Magnesium 1.7 mg/dL (1.6-2.6); Potassium 3.8 mmol/L (3.3-5.1); Sodium 129 mmol/L (135-145)
[2023-01-11] MEDS: Magnesium Oxide 400 MG TABLET PO ×2 (08:38→16:38)
[2023-01-11] MEDS: Thiamine HCL 100 MG TABLET PO (08:38)
[2023-01-11] MEDS: hydrOXYzine HCL 25 MG TABLET PO (08:38)
[2023-01-11] MEDS: Nicotine 14 MG PATCH.TD24 TRANSDERMA (08:38)
[2023-01-11] MEDS: Folic Acid 1 MG TABLET PO (08:38)
[2023-01-11 08:40] LABS: Cortisol Random 9.7 ug/dL
[2023-01-11 08:46] LABS: TSH reflex Free T4 4.88 uIU/mL (0.32-4.0)
--- NOTE | 2023-01-11 09:39 | MHC.CLN ---
NUTRITION PATIENT NOW WITH 1200 ML FLUID RESTRICTION DUE TO LOW SODIUM LABS ([id number]).
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
[2023-01-11 13:28] LABS: Alpha Fetoprotein 4.5 ng/mL (<6.1)
--- NOTE | 2023-01-11 15:07 | MHC.CM.PN ---
EMR REVIEWED AND PER MD ROUNDS, PT NOT MEDICALLY CLEARED FOR DC (ETOH WITHDRAWAL SX, MONITORING LABS) CM WILL CONTINUE TO FOLLOW FOR DC PLAN/NEEDS. CIWA SCORE AT 3.
[2023-01-11 15:09] VITALS: BP 110/73; PULSE 90; O2SAT 94
[2023-01-11 15:42] VITALS: BP 110/73; PULSE 90; RESP 14; TEMP 36.6; O2SAT 94
[2023-01-11 16:13] LABS: Haptoglobin 67 mg/dL (43-212)
[2023-01-11 19:39] VITALS: BP 120/72; PULSE 93; RESP 18; TEMP 36.5; O2SAT 97
[2023-01-11] MEDS: PHENobarbitaL 30 MG TABLET PO (21:22)
[2023-01-12 01:09] VITALS: BP 107/68; PULSE 99; RESP 18; TEMP 37; O2SAT 97
[2023-01-12] MEDS: Omeprazole 40 MG CAPSULE.DR PO (05:53)
[2023-01-12 06:51] LABS: Anion Gap 9 (12-20); Blood Urea Nitrogen 5 mg/dL (9-16); Calcium 7.8 mg/dL (8.4-10.2); Carbon Dioxide 21 mmol/L (22-29); Chloride 99 mmol/L (96-108); Creatinine Clr Calc Pharmacy 136.7; Estimated Glomerular Filt Rate > 60; Glucose Random 128 mg/dL (60-115); Potassium 3.5 mmol/L (3.3-5.1); Sodium 125 mmol/L (135-145)
[2023-01-12 07:47] VITALS: BP 103/65; PULSE 97; RESP 20; TEMP 36.8; O2SAT 100
[2023-01-12] MEDS: Folic Acid 1 MG TABLET PO (08:21)
[2023-01-12] MEDS: Nicotine 14 MG PATCH.TD24 TRANSDERMA (08:21)
[2023-01-12] MEDS: Magnesium Oxide 400 MG TABLET PO ×2 (08:21→16:23)
[2023-01-12] MEDS: Thiamine HCL 100 MG TABLET PO (08:21)
[2023-01-12] MEDS: Sucralfate Oral Suspension 1 GM/10 ML ORAL.SUSP PO ×4 (08:21→20:06)
[2023-01-12] MEDS: 0.9 % Sodium Chloride Flush 3 ML SYRINGE IVFLUSH ×3 (08:25→20:06)
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
--- NOTE | 2023-01-12 11:25 | PM.PNNEP ---
Subjective Subjective Date of Service: 01/12/23 Interval history: seen and examined no complaints Physical Exam Vital Signs: Vital Signs: Last Vital Signs Temp 98.2 F 01/12/23 07:47 Pulse 97 01/12/23 07:47 Resp 20 01/12/23 07:47 BP 103/65 01/12/23 07:47 Pulse Ox 100 01/12/23 07:47 O2 Del Method Room Air 01/12/23 07:47 O2 Flow Rate 2 01/10/23 03:49 BMI result Body Mass Index 22.5 Const: General: No acute distress HEENT: Head: Yes normocephalic and Yes atraumatic Neck: Neck: Yes supple Resp: Auscultation: diminished lung sounds Cardio: Heart sounds: S1 normal heart sound present and S2 normal heart sound present GI: Palpation (GI): Soft to palpation Extrem: General: No edema Objective Data Labs 01/10/23 08:03 01/12/23 05:57 Labs: Laboratory Results - last 24 hr 01/06/23 01/08/23 01/12/23 05:10 13:13 05:57 Haptoglobin 67 Sodium 125 L Potassium 3.5 Chloride 99 Carbon Dioxide 21 L Anion Gap 9 L BUN 5 L Creatinine 0.51 Estim Creat Clear Calc 136.7 Estimated GFR > 60 Random Glucose 128 H Calcium 7.8 L D Alpha Fetoprotein 4.5 Procedures Date of Service Date of Service: 01/12/23 Assessment & Plan Assessment and plan (1) Hyponatremia: Status: Acute Plan Sna lower most likely euvolemic hypotonic hyponatremia urine osmolality 488, urine sodium 138 pain is a strong stimulus for ADH no reason to suspect poor solute excretion given Uosm REC add sodium chloride 1 g tid to increase osmotic solute excretion fluid restriction 1.5 L avoid urea follow electrolytes Time Spent With Patient Time: Total time managing care of this patient today ____ minutes. Progress Note: Quality Stroke Does the patient have a stroke diagnosis?: No
[2023-01-12 15:05] VITALS: BP 116/69; PULSE 97; RESP 18; TEMP 36.6; O2SAT 95
[2023-01-12] MEDS: Sodium Chloride Tab 1 GM TABLET PO ×3 (15:40→20:06)
[2023-01-12] MEDS: hydrOXYzine HCL 25 MG TABLET PO (16:23)
[2023-01-12 19:09] VITALS: BP 100/66; PULSE 88; RESP 20; TEMP 36.3; O2SAT 96
[2023-01-13 03:48] VITALS: BP 108/59; PULSE 106; RESP 16; TEMP 36.7; O2SAT 97
[2023-01-13] MEDS: Omeprazole 40 MG CAPSULE.DR PO (05:52)
[2023-01-13] MEDS: Sucralfate Oral Suspension 1 GM/10 ML ORAL.SUSP PO ×4 (06:59→20:20)
[2023-01-13] MEDS: 0.9 % Sodium Chloride Flush 3 ML SYRINGE IVFLUSH ×2 (07:00→20:20)
[2023-01-13 08:00] VITALS: BP 101/63; PULSE 98; RESP 18; TEMP 36.7; O2SAT 95
[2023-01-13] MEDS: Folic Acid 1 MG TABLET PO (08:20)
[2023-01-13] MEDS: Thiamine HCL 100 MG TABLET PO (08:20)
[2023-01-13] MEDS: Magnesium Oxide 400 MG TABLET PO (08:20)
[2023-01-13] MEDS: Nicotine 14 MG PATCH.TD24 TRANSDERMA (08:21)
--- NOTE | 2023-01-13 08:30 | PC.NURSE ---
small amount of vomit this AM, PA notified.
[2023-01-13 08:35] LABS: Anion Gap 10 (12-20); Blood Urea Nitrogen 4 mg/dL (9-16); Carbon Dioxide 22 mmol/L (22-29); Chloride 101 mmol/L (96-108); Creatinine Clr Calc Pharmacy 139.4; Estimated Glomerular Filt Rate > 60; Glucose Random 105 mg/dL (60-115); Potassium 3.7 mmol/L (3.3-5.1); Sodium 129 mmol/L (135-145)
--- NOTE | 2023-01-13 08:51 | PC.NURSE ---
Pt HR jumped into the 170s, down to 104, PA notified.
[2023-01-13 09:50] LABS: Magnesium 1.7 mg/dL (1.6-2.6)
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
--- NOTE | 2023-01-13 12:31 | PM.PNNEP ---
Subjective Subjective Date of Service: 01/13/23 Interval history: seen and examined c/o abdominal pain Physical Exam Vital Signs: Vital Signs: Last Vital Signs Temp 98.1 F 01/13/23 08:00 Pulse 98 01/13/23 08:00 Resp 18 01/13/23 08:00 BP 101/63 01/13/23 08:00 Pulse Ox 95 01/13/23 08:00 O2 Del Method Room Air 01/13/23 08:00 O2 Flow Rate 2 01/10/23 03:49 BMI result Body Mass Index 22.5 Const: General: No acute distress HEENT: Head: Yes normocephalic and Yes atraumatic Neck: Neck: Yes supple Resp: Auscultation: diminished lung sounds Cardio: Heart sounds: S1 normal heart sound present and S2 normal heart sound present GI: Palpation (GI): Soft to palpation Extrem: General: No edema Objective Data Labs 01/10/23 08:03 01/13/23 07:51 Labs: Laboratory Results - last 24 hr 01/13/23 07:51 Sodium 129 L Potassium 3.7 Chloride 101 Carbon Dioxide 22 Anion Gap 10 L BUN 4 L Creatinine 0.50 Estim Creat Clear Calc 139.4 Estimated GFR > 60 Random Glucose 105 Calcium 8.0 L Magnesium 1.7 Procedures Date of Service Date of Service: 01/13/23 Assessment & Plan Assessment and plan (1) Hyponatremia: Status: Acute Plan Sna up most likely euvolemic hypotonic hyponatremia urine osmolality 488, urine sodium 138 pain is a strong stimulus for ADH no reason to suspect poor solute excretion given Uosm REC c/w sodium chloride 1 g tid to increase osmotic solute excretion fluid restriction 1.5 L avoid urea follow electrolytes Time Spent With Patient Time: Total time managing care of this patient today ____ minutes. Progress Note: Quality Stroke Does the patient have a stroke diagnosis?: No
[2023-01-13] MEDS: polyethylene glycoL 3350 17 GM POWD.PACK PO (13:13)
[2023-01-13] MEDS: Magnesium Sulfate/H2O 2 GM/50 ML PIGGYBACK IV (13:13)
[2023-01-13] MEDS: Sodium Chloride Tab 1 GM TABLET PO ×2 (13:17→20:20)
[2023-01-13 13:19] VITALS: BP 101/63; PULSE 98; O2SAT 95
[2023-01-13 14:12] LABS: Hematocrit 25.5 % (42.0-52.0); Hemoglobin 8.8 g/dl (14.0-18.0); Mean Corpuscular HGB Conc 34.5 g/dl (31.0-36.0); Mean Corpuscular Hemoglobin 36.4 pg (27.0-33.0); Mean Corpuscular Volume 105.4 fL (80.0-98.0); Mean Platelet Volume 10.1 fL (9.4-12.4); Platelet Count 381 X10*3/uL (160-400); Red Blood Count 2.42 X10*6/uL (4.60-5.80); Red Cell Distribution Width 19.9 % (11.0-16.0); White Blood Count 12.2 X10*3/uL (4.8-10.8)
[2023-01-13 15:39] VITALS: BP 120/57; PULSE 91; RESP 20; TEMP 36.2; O2SAT 99
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
[2023-01-13 20:00] VITALS: BP 104/64; PULSE 97; RESP 18; TEMP 36.5; O2SAT 98
[2023-01-14 03:31] VITALS: BP 95/51; PULSE 93; RESP 16; TEMP 37.2; O2SAT 98
[2023-01-14] MEDS: Omeprazole 40 MG CAPSULE.DR PO (05:21)
[2023-01-14 06:03] LABS: Hematocrit 23.1 % (42.0-52.0); Hemoglobin 8.2 g/dl (14.0-18.0); Mean Corpuscular HGB Conc 35.5 g/dl (31.0-36.0); Mean Corpuscular Hemoglobin 36.8 pg (27.0-33.0); Mean Corpuscular Volume 103.6 fL (80.0-98.0); Mean Platelet Volume 9.9 fL (9.4-12.4); Platelet Count 389 X10*3/uL (160-400); Red Blood Count 2.23 X10*6/uL (4.60-5.80); Red Cell Distribution Width 19.2 % (11.0-16.0); White Blood Count 10.7 X10*3/uL (4.8-10.8)
[2023-01-14 06:28] LABS: Anion Gap 9 (12-20); Blood Urea Nitrogen 4 mg/dL (9-16); Calcium 7.7 mg/dL (8.4-10.2); Carbon Dioxide 22 mmol/L (22-29); Chloride 102 mmol/L (96-108); Creatinine Clr Calc Pharmacy 145.2; Estimated Glomerular Filt Rate > 60; Glucose Random 109 mg/dL (60-115); Potassium 3.6 mmol/L (3.3-5.1); Sodium 129 mmol/L (135-145)
--- NOTE | 2023-01-14 07:00 | CA_ITS ---
Transthoracic Echocardiogram Patient (Last, First, Middle): Pranay Corley G Gender: Male Date of : 1960 Age: 62 Procedure Date: 01/14/2023 Procedure Type: Transthoracic Echocardiogram Location: S3E Height: 170.18 cm Weight: 64.86 kg BSA: 1.75 m2 Heart Rate: 101 bpm BP: 101 / 63 mmHg [employer] Specialist: SB Referring MD: Evie RAMIREZ Symptoms: persistent tachycardia Study Quality: Adequate ECG Rhythm: Tachycardia Conclusions: - Normal left ventricular size, thickness, and systolic function. The visually estimated ejection fraction is between 55-60%. Diastolic function is normal for age. - Normal right ventricular cavity size and systolic function. - There is no evidence of pericardial effusion. Findings Left Ventricle Normal left ventricular size, thickness, and systolic function. The visually estimated ejection fraction is between 55-60%. Diastolic function is normal for age. Right Ventricle Normal right ventricular cavity size and systolic function. Atria The left atrium is normal in size. The right atrium is normal in size. Aortic Valve Normal aortic valve structure and function. There is no aortic valve stenosis. There is no aortic valve regurgitation. Mitral Valve Normal mitral valve structure and function. There is no mitral valve regurgitation. There is no mitral valve stenosis. Pulmonic Valve The pulmonic valve is likely normal. Tricuspid Valve Normal tricuspid valve structure. There is no tricuspid valve regurgitation. Indeterminate right atrial pressure. PASP = 20 mm Hg + right atrial pressure. Great Vessels There is mild dilatation of the ascending aorta measuring 3.50 cm. Venous The inferior vena cava was not well visualized. Pericardium/Pleural There is no evidence of pericardial effusion. Prior Study Comparison No significant change compared to prior study dated: 03/13/2020. Measurements 2D Linear Measurements IVSd: 1.14 0.6-0.9/0.6-1.0 cm LVIDd: 4.46 3.9-5.3/4.2-5.9 cm LVIDd Index: 2.55 2.4-3.2/2.2-3.1 cm/m2 LVIDs: 3.39 2.0-3.6 cm LVPWd: 0.58 0.7-1.1 cm LA Diam: 2.70 2.7-3.8/3.0-4.0 cm LAIDs Index: 1.54 1.5-2.3 cm/m2 LV Mass: 153.20 67-162/88-224 g LV Mass Index: 87.55 43-95/49-115 g/m2 LVOT Diam: 2.10 3.0+(-)1.3 cm 2D Systolic Function EF 4C: 50.90 >55% EF 2C: 65.90 >55% EF BiP: 60.50 >55% Mitral Valve MV Pk E: 0.62 MV PK A: 1.02 MV Decel Time: 157.00 E/A: 0.60 E'Lateral: 8.59 E'Medial: 6.74 E/E' Med: 9.20 E/E' Lat: 7.20 PHT: 46.00 MVA PHT: 4.78 Decel Mingo: 3.95 Aortic Valve AoV Pk Chris: 1.28 AoV Pk Grad: 7.00 PER: 2.56 LVOT LVOT Pk Chris: 0.95 LVOT Mn Chris: 0.71 LVOT VTI: 0.16 LVOT Pk Grad: 4.00 LVOT Mn Grad: 2.00 LVOT Diam: 2.10 LVOT Area: 3.46 Diastolic Function MV Pk E: 0.62 MV Pk A: 1.02 E/A: 0.60 E'Medial: 6.74 E/E' Med: 9.20 E' Laterial: 8.59 E/E' Lat: 7.20 Right Ventricle TAPSE (mm): 24.40 TVS' Chris: 14.90 Tricuspid Valve TR Pk Chris: 2.06 TR Pk Grad: 17.00 RA Press: 3.00 RVSP: 20.00 Great Vessels Aorta Sinus of Valsalva: 3.40 2.0-3.5 cm Ao Asc: 3.50 2.1-3.4 cm Pulmonary Valve PV Pk Chris: 0.86 Peak PV Grad: 3.00 Updated in Other Vendor System with Status of Final Demarco Marie MD electronically signed on 01/14/2023 4:21:57 PM with status of Final
[2023-01-14 07:40] VITALS: BP 91/50; PULSE 100; RESP 16; TEMP 37.5; O2SAT 98
[2023-01-14] MEDS: Pantoprazole Sodium 40 MG/10 ML VIAL IVPUSH (09:15)
[2023-01-14] MEDS: Nicotine 14 MG PATCH.TD24 TRANSDERMA (09:17)
[2023-01-14] MEDS: Magnesium Oxide 400 MG TABLET PO ×2 (09:18→16:56)
[2023-01-14] MEDS: Docusate Sodium 100 MG CAPSULE PO (09:18)
[2023-01-14] MEDS: Sodium Chloride Tab 1 GM TABLET PO ×3 (09:18→20:18)
[2023-01-14] MEDS: Folic Acid 1 MG TABLET PO (09:18)
[2023-01-14] MEDS: polyethylene glycoL 3350 17 GM POWD.PACK PO (09:18)
[2023-01-14] MEDS: Sucralfate Oral Suspension 1 GM/10 ML ORAL.SUSP PO ×4 (09:18→20:18)
[2023-01-14] MEDS: Thiamine HCL 100 MG TABLET PO (09:18)
[2023-01-14] MEDS: 0.9 % Sodium Chloride Flush 3 ML SYRINGE IVFLUSH ×3 (09:20→20:18)
--- NOTE | 2023-01-14 10:44 | PM.PNNEP ---
Subjective Subjective Date of Service: 01/14/23 Interval history: seen and examined no complaints Physical Exam Vital Signs: Vital Signs: Last Vital Signs Temp 99.5 F 01/14/23 07:40 Pulse 100 01/14/23 07:40 Resp 16 01/14/23 07:40 BP 91/50 L 01/14/23 07:40 Pulse Ox 98 01/14/23 07:40 O2 Del Method Room Air 01/14/23 07:40 O2 Flow Rate 2 01/10/23 03:49 BMI result Body Mass Index 22.5 Const: General: No acute distress HEENT: Head: Yes normocephalic and Yes atraumatic Neck: Neck: Yes supple Resp: Auscultation: diminished lung sounds Cardio: Heart sounds: S1 normal heart sound present and S2 normal heart sound present GI: Palpation (GI): Soft to palpation Extrem: General: No edema Objective Data Labs 01/14/23 05:56 01/14/23 05:56 Labs: Laboratory Results - last 24 hr 01/13/23 01/14/23 01/14/23 13:40 05:56 05:56 WBC 12.2 H 10.7 RBC 2.42 L 2.23 L Hgb 8.8 L 8.2 L Hct 25.5 L 23.1 L MCV 105.4 H 103.6 H MCH 36.4 H 36.8 H MCHC 34.5 35.5 RDW 19.9 H 19.2 H Plt Count 381 D 389 MPV 10.1 9.9 Absolute Nucleated RBC 0.000 0.000 Nucleated RBC % (auto) 0.0 0.0 Sodium 129 L Potassium 3.6 Chloride 102 Carbon Dioxide 22 Anion Gap 9 L BUN 4 L Creatinine 0.48 L Estim Creat Clear Calc 145.2 Estimated GFR > 60 Random Glucose 109 Calcium 7.7 L Procedures Date of Service Date of Service: 01/14/23 Assessment & Plan Assessment and plan (1) Hyponatremia: Status: Acute Plan Sna stable euvolemic hypotonic hyponatremia urine osmolality 488, urine sodium 138 pain is a strong stimulus for ADH REC c/w sodium chloride 1 g tid reinforce fluid restriction 1.5 L avoid urea follow electrolytes Time Spent With Patient Time: Total time managing care of this patient today ____ minutes. Progress Note: Quality Stroke Does the patient have a stroke diagnosis?: No
[2023-01-14 11:28] LABS: Alanine Aminotransferase 14 U/L (0-40); Albumin Level 2.4 g/dL (3.5-5.0); Alkaline Phosphatase 179 U/L (39-117); Aspartate Amino Transferase 55 U/L (5-37); Bilirubin Direct 0.4 mg/dL (0.0-0.5); Bilirubin Total 0.7 mg/dL (0.0-1.0); Total Protein 6.3 g/dL (6.5-8.0)
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
[2023-01-14 15:04] VITALS: BP 127/63; PULSE 98; RESP 18; TEMP 36.9; O2SAT 98
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
[2023-01-14 19:09] VITALS: BP 100/64; PULSE 104; RESP 18; TEMP 37.2; O2SAT 96
[2023-01-15] VITALS (13 sets, daily range): BP systolic 91–147; BP diastolic 54–80; PULSE 69–100; RESP 16–20; TEMP 36.4–37.3; O2SAT 94–99
[2023-01-15] MEDS: hydrOXYzine HCL 25 MG TABLET PO (00:52)
[2023-01-15] MEDS: Acetaminophen 325 MG TABLET 650 MG PO (04:44)
[2023-01-15] MEDS: Pantoprazole Sodium 40 MG/10 ML VIAL IVPUSH (04:48)
[2023-01-15 06:42] LABS: Anion Gap 9 (12-20); Blood Urea Nitrogen 5 mg/dL (9-16); Calcium 7.9 mg/dL (8.4-10.2); Carbon Dioxide 22 mmol/L (22-29); Chloride 102 mmol/L (96-108); Creatinine Clr Calc Pharmacy 136.7; Estimated Glomerular Filt Rate > 60; Glucose Random 91 mg/dL (60-115); Potassium 3.6 mmol/L (3.3-5.1); Sodium 129 mmol/L (135-145)
--- NOTE | 2023-01-15 07:57 | PM.PNNEP ---
Subjective Subjective Date of Service: 01/15/23 Interval history: seen and examined no complaints this morning Physical Exam Vital Signs: Vital Signs: Last Vital Signs Temp 97.8 F 01/15/23 07:35 Pulse 96 01/15/23 07:35 Resp 18 01/15/23 07:35 BP 99/67 01/15/23 07:35 Pulse Ox 98 01/15/23 07:35 O2 Del Method Room Air 01/15/23 07:35 O2 Flow Rate 2 01/10/23 03:49 BMI result Body Mass Index 22.5 Const: General: No acute distress HEENT: Head: Yes normocephalic and Yes atraumatic Neck: Neck: Yes supple Resp: Auscultation: diminished lung sounds Cardio: Heart sounds: S1 normal heart sound present and S2 normal heart sound present GI: Palpation (GI): Soft to palpation Extrem: General: No edema Objective Data Labs 01/14/23 05:56 01/15/23 05:55 Labs: Laboratory Results - last 24 hr 01/14/23 01/15/23 05:56 05:55 Sodium 129 L Potassium 3.6 Chloride 102 Carbon Dioxide 22 Anion Gap 9 L BUN 5 L Creatinine 0.51 Estim Creat Clear Calc 136.7 Estimated GFR > 60 Random Glucose 91 Calcium 7.9 L Total Bilirubin 0.7 Direct Bilirubin 0.4 AST 55 H ALT 14 Alkaline Phosphatase 179 H Total Protein 6.3 L Albumin 2.4 L Procedures Date of Service Date of Service: 01/15/23 Assessment & Plan Assessment and plan (1) Hyponatremia: Status: Acute Plan Sna stable unchanged euvolemic hypotonic hyponatremia urine osmolality 488, urine sodium 138 pain is a strong stimulus for ADH REC c/w sodium chloride 1 g tid c/w fluid restriction 1.5 L avoid urea follow electrolytes Time Spent With Patient Time: Total time managing care of this patient today ____ minutes. Progress Note: Quality Stroke Does the patient have a stroke diagnosis?: No
[2023-01-15] MEDS: 0.9 % Sodium Chloride Flush 3 ML SYRINGE IVFLUSH (08:09)
--- NOTE | 2023-01-15 08:14 | PC.NURSE ---
report called to Melany in [facility] for endoscopy 1400 , pt to remain NPO
[2023-01-15] MEDS: Nicotine 14 MG PATCH.TD24 TRANSDERMA (09:57)
--- NOTE | 2023-01-15 10:13 | PC.NURSE ---
This RN assumed care for this pt at 1010. Report taken. Meds from this AM mago for 0900 charted against per previous RN d/t pt being NPO and scheduled for an EGD. Per previous RN pt was also experiencing difficult swallowing; taking PO meds
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
--- NOTE | 2023-01-15 13:54 | MHC.CM.PN ---
PER [facility], PT IS NOT ACTIVE WITH A PCP SO UNABLE TO HAVE [facility] SERVICES. PA NOTIFIED.
--- NOTE | 2023-01-15 14:13 | MHC.CM.PN ---
per rounds no d date art this time plan remains home
--- NOTE | 2023-01-15 14:19 | P.CONAN_ITS ---
HPI - Anesthesia Eval Consult details Narrative: 62 yo male patient for EGD PMFSH Active Problems Active Problems: All Active Problems (Updated 01/15/23 @ 14:40 by Suellen Astorga MD) Abdominal pain (Acute) Hyponatremia (Acute) Alcohol withdrawal (Acute) Liver lesion (Acute) Alcohol abuse with withdrawal (Acute) Contusion of elbow, left (Acute) Lesion of liver (Acute) Tubular adenoma of colon (Acute) Screening PSA (prostate specific antigen) (Acute) Tachycardia (Acute) Chronic left hip pain (Acute) Pre-op evaluation (Acute) Status post total hip replacement, left (Acute) Physical exam (Acute) Screening for colon cancer (Acute) Smoker (Acute)- Last pre-admission 01/05/23 Anemia Denies PAUL Past Medical History Medical History Anxiety COVID-19 vaccine series completed Gout History of alcohol abuse History of recent fall HTN (hypertension) Hx of concussion Primary osteoarthritis of right hip Tobacco abuse Tongue abnormality Use of cane as ambulatory aid Wears dentures Family History Family History Father No problems noted. Mother Cirrhosis Family history of problems with anesthesia: No Surgical History Surgical History History of arm fracture History of back surgery History of fracture of leg History of total left hip arthroplasty Hx of colonoscopy History of Problems with Anesthesia: No Social History Social History Household Members: Unknown / Unable to assess Housing: Unknown / Unable to assess Are you a primary career transition specialist to a significant other at home: No Do you presently have visiting nurse or other home services: No Unable to assess alcohol history related to: Unknown Alcohol intake: former Patient Tobacco Use Status: Current everyday Tobacco user Tobacco use type: Cigarette Cigarette Packs Per Day: 1.5 Cigarettes Per Day: 30.0 Years Smoked: 46 e-Cigarette/Vaping Use: Never Used Second Hand Smoke Exposure: No Substance Use Type: Opiates service: No Current occupational status: retired Current occupation: rt handed Meds Allergies Allergy/AdvReac Type Severity Reaction Status Date / Time No Known Allergies Allergy Verified 07/31/22 12:28 Active Medications: Current Medications Acetaminophen (Acetaminophen 325 Mg Tablet) 650 mg PO Q6H PRN PRN Reason: Pain, Mild (Pain Scale 1-3) Last Admin: 01/15/23 04:44 Dose: 325 mg Docusate Sodium (Docusate Sodium 100 Mg Capsule) 100 mg PO DAILY [facility] Last Admin: 01/15/23 10:04 Dose: Not Given Folic Acid (Folic Acid 1 Mg Tablet) 1 mg PO DAILY [facility] Last Admin: 01/15/23 10:04 Dose: Not Given Hydroxyzine HCl (Hydroxyzine Hcl 25 Mg Tablet) 25 mg PO Q8H PRN PRN Reason: Anxiety Last Admin: 01/15/23 00:52 Dose: 25 mg Magnesium Oxide (Magnesium Oxide 400 Mg Tablet) 400 mg PO BIDPC [facility] Last Admin: 01/15/23 10:04 Dose: Not Given Nicotine (Nicotine 14 Mg Patch.Td24) 14 mg TRANSDERMA DAILY [facility] Last Admin: 01/15/23 09:57 Dose: 14 mg Nicotine Polacrilex (Nicotine Polacrilex 2 Mg Gum) 2 mg BUCCAL Q1H PRN PRN Reason: Nicotine Cravings Ondansetron HCl (Ondansetron Hcl 4 Mg/2 Ml Vial) 4 mg IVPUSH Q8H PRN PRN Reason: Nausea and Vomiting Last Admin: 01/07/23 18:09 Dose: 4 mg Pantoprazole Sodium (Pantoprazole Sodium 40 Mg/10 Ml Vial) 40 mg IVPUSH DAILY@0630 [facility] Last Admin: 01/15/23 04:48 Dose: 40 mg Pharmacy Consult (Consult Rx Etoh Phenob Im/Po) 1 each MISCELLANE ONCE PRN; Protocol PRN Reason: Consult order Polyethylene Glycol (Polyethylene Glycol 3350 17 Gm Powd.Pack) 17 gm PO DAILY [facility] Last Admin: 01/15/23 10:05 Dose: Not Given Sodium Chloride (0.9 % Sodium Chloride Flush 3 Ml Syringe) 3 ml IVFLUSH QSHIFT [facility] Last Admin: 01/15/23 10:45 Dose: Not Given Sodium Chloride (Sodium Chloride Tab 1 Gm Tablet) 1 gm PO TID [facility] Last Admin: 01/15/23 10:05 Dose: Not Given Sucralfate (Sucralfate Oral Suspension 1 Gm/10 Ml Oral.Susp) 1 gm PO QIDACHS [facility] Last Admin: 01/15/23 10:15 Dose: Not Given Thiamine HCl (Thiamine Hcl 100 Mg Tablet) 100 mg PO DAILY [facility] Last Admin: 01/15/23 10:05 Dose: Not Given Home Medications Medication Instructions Recorded Confirmed Last Taken Type No Known Home Meds 08/06/22 01/06/23 Unknown History Exam Exam Date and Time: January 15, 2023 1419 Height,Weight and Vital Signs: Height 5 ft 7 in Weight 65.2 kg Last Vital Signs Temp 97.8 F 01/15/23 14:14 Pulse 75 01/15/23 14:14 Resp 18 01/15/23 14:14 BP 119/80 01/15/23 14:14 Pulse Ox 95 01/15/23 14:14 O2 Del Method Room Air 01/15/23 14:14 O2 Flow Rate 2 01/10/23 03:49 Pertinent Lab Results Pertinent Lab Results: Laboratory Tests 01/05/23 01/05/23 01/05/23 15:13 15:13 15:13 WBC 8.4 RBC 2.73 L Hgb 10.4 L Hct 28.0 L MCV 102.6 H MCH 38.1 H MCHC 37.1 H RDW 19.0 H Plt Count 76 L D MPV Not Reportable Immature Gran % (Auto) 0.8 H Neut % (Auto) 84.5 H Lymph % (Auto) 7.4 L [place] % (Auto) 6.3 Eos % (Auto) 0.5 Baso % (Auto) 0.5 Lymph # (Auto) 0.6 L [place] # (Auto) 0.5 Eos # (Auto) 0.0 Baso # (Auto) 0.0 Abs Immat Gran (auto) 0.07 H Absolute Neuts (auto) 7.1 Absolute Nucleated RBC 0.050 H Nucleated RBC % (auto) 0.6 H Smear Tech's Comments VERIFIED Absolute Retic Percent Retic Immature Retic Fraction Retic Hgb Equivalent Haptoglobin Sodium 134 L Potassium 3.2 L D Chloride 101 Carbon Dioxide 18 L Anion Gap 18 BUN 6 L Creatinine 0.68 Estim Creat Clear Calc 102.5 Estimated GFR > 60 Random Glucose 174 H Calcium 8.1 L D Magnesium 1.2 L* Iron TIBC % Saturation Unsat Iron Binding Ferritin Total Bilirubin 1.4 H Direct Bilirubin 0.6 H AST 91 H ALT 17 Alkaline Phosphatase 272 H Lactate Dehydrogenase Troponin I High Sens < 2.7 Total Protein 6.8 Albumin 2.5 L Lipase Alpha Fetoprotein Vitamin B12 Folate TSH Free T4 Random Cortisol Urine Color Urine Appearance Urine pH Ur Specific [place] Urine Protein Urine Glucose (UA) Urine Ketones Urine Blood Urine Nitrite Ur Leukocyte Esterase Urine RBC Urine WBC Ur Squamous Epith Cells Urine Bacteria Hyaline Casts Urine Osmolality Ur Random Sodium Stool Occult Blood Urine Opiates Screen Urine Fentanyl Screen Ur Barbiturates Screen Ur Phencyclidine Scrn Ur Amphetamines Screen U Benzodiazepines Scrn Urine Cocaine Screen U Marijuana (THC) Screen Ethyl Alcohol 130 Blood Type Antibody Screen 01/05/23 01/05/23 01/05/23 17:45 17:45 17:45 WBC RBC Hgb Hct MCV MCH MCHC RDW Plt Count MPV Immature Gran % (Auto) Neut % (Auto) Lymph % (Auto) [place] % (Auto) Eos % (Auto) Baso % (Auto) Lymph # (Auto) [place] # (Auto) Eos # (Auto) Baso # (Auto) Abs Immat Gran (auto) Absolute Neuts (auto) Absolute Nucleated RBC Nucleated RBC % (auto) Smear Tech's Comments Absolute Retic Percent Retic Immature Retic Fraction Retic Hgb Equivalent Haptoglobin Sodium Potassium Chloride Carbon Dioxide Anion Gap BUN Creatinine Estim Creat Clear Calc Estimated GFR Random Glucose Calcium Magnesium Iron TIBC % Saturation Unsat Iron Binding Ferritin Total Bilirubin Direct Bilirubin AST ALT Alkaline Phosphatase Lactate Dehydrogenase Troponin I High Sens Total Protein Albumin Lipase Alpha Fetoprotein Vitamin B12 Folate TSH Free T4 Random Cortisol Urine Color Yellow Urine Appearance Clear Urine pH 7.5 Ur Specific [place] >= 1.030 H Urine Protein Trace Urine Glucose (UA) Negative Urine Ketones Negative Urine Blood Moderate (2+) H Urine Nitrite Negative Ur Leukocyte Esterase Negative Urine RBC >20 H Urine WBC 0-5 Ur Squamous Epith Cells 0-2 Urine Bacteria None Seen Hyaline Casts 3-5 Urine Osmolality Ur Random Sodium Stool Occult Blood Urine Opiates Screen Not Detected Urine Fentanyl Screen Not Detected Ur Barbiturates Screen Not Detected Ur Phencyclidine Scrn Not Detected Ur Amphetamines Screen Not Detected U Benzodiazepines Scrn Not Detected Urine Cocaine Screen Not Detected U Marijuana (THC) Screen Not Detected Ethyl Alcohol Blood Type A Negative Antibody Screen NEGATIVE 01/06/23 01/06/23 01/06/23 05:10 05:10 05:10 WBC 11.5 H RBC 2.58 L Hgb 9.7 L Hct 26.2 L MCV 101.6 H MCH 37.6 H MCHC 37.0 H RDW 18.8 H Plt Count 65 L MPV 10.0 Immature Gran % (Auto) 0.5 H Neut % (Auto) 80.7 H Lymph % (Auto) 13.0 L [place] % (Auto) 5.1 Eos % (Auto) 0.4 Baso % (Auto) 0.3 Lymph # (Auto) 1.5 [place] # (Auto) 0.6 Eos # (Auto) 0.1 Baso # (Auto) 0.0 Abs Immat Gran (auto) 0.06 H Absolute Neuts (auto) 9.3 H Absolute Nucleated RBC 0.030 H Nucleated RBC % (auto) 0.3 H Smear Tech's Comments Absolute Retic Percent Retic Immature Retic Fraction Retic Hgb Equivalent Haptoglobin Sodium 131 L Potassium 3.1 L Chloride 99 Carbon Dioxide 22 Anion Gap 13 BUN 5 L Creatinine 0.52 Estim Creat Clear Calc 134.0 Estimated GFR > 60 Random Glucose 129 H Calcium 7.9 L Magnesium 1.5 L Iron TIBC % Saturation Unsat Iron Binding Ferritin Total Bilirubin Direct Bilirubin AST ALT Alkaline Phosphatase Lactate Dehydrogenase Troponin I High Sens Total Protein Albumin Lipase Alpha Fetoprotein 4.5 Vitamin B12 Folate TSH Free T4 Random Cortisol Urine Color Urine Appearance Urine pH Ur Specific [place] Urine Protein Urine Glucose (UA) Urine Ketones Urine Blood Urine Nitrite Ur Leukocyte Esterase Urine RBC Urine WBC Ur Squamous Epith Cells Urine Bacteria Hyaline Casts Urine Osmolality Ur Random Sodium Stool Occult Blood Urine Opiates Screen Urine Fentanyl Screen Ur Barbiturates Screen Ur Phencyclidine Scrn Ur Amphetamines Screen U Benzodiazepines Scrn Urine Cocaine Screen U Marijuana (THC) Screen Ethyl Alcohol Blood Type Antibody Screen 01/07/23 01/08/23 01/08/23 08:02 05:42 05:42 WBC 10.2 RBC 2.08 L Hgb 7.9 L Hct 21.6 L MCV 103.8 H MCH 38.0 H MCHC 36.6 H RDW 18.6 H Plt Count 77 L MPV 11.8 Immature Gran % (Auto) 0.7 H Neut % (Auto) 72.8 Lymph % (Auto) 18.3 L [place] % (Auto) 6.3 Eos % (Auto) 1.5 Baso % (Auto) 0.4 Lymph # (Auto) 1.9 [place] # (Auto) 0.6 Eos # (Auto) 0.2 Baso # (Auto) 0.0 Abs Immat Gran (auto) 0.07 H Absolute Neuts (auto) 7.5 Absolute Nucleated RBC 0.050 H Nucleated RBC % (auto) 0.5 H Smear Tech's Comments VERIFIED Absolute Retic Percent Retic Immature Retic Fraction Retic Hgb Equivalent Haptoglobin Sodium 129 L Potassium 3.9 D Chloride 100 Carbon Dioxide 22 Anion Gap 11 L BUN 4 L Creatinine 0.56 Estim Creat Clear Calc 124.5 Estimated GFR > 60 Random Glucose 152 H Calcium 8.3 L Magnesium 1.4 L* 1.5 L Iron 75 TIBC 151 L % Saturation 50 Unsat Iron Binding 76 Ferritin 758 H Total Bilirubin 2.4 H 1.9 H Direct Bilirubin 1.0 H 0.9 H AST 53 H 48 H ALT 12 10 Alkaline Phosphatase 225 H 185 H Lactate Dehydrogenase Troponin I High Sens Total Protein 6.3 L 6.0 L Albumin 2.3 L 2.7 L Lipase 8 Alpha Fetoprotein Vitamin B12 Folate TSH Free T4 Random Cortisol Urine Color Urine Appearance Urine pH Ur Specific [place] Urine Protein Urine Glucose (UA) Urine Ketones Urine Blood Urine Nitrite Ur Leukocyte Esterase Urine RBC Urine WBC Ur Squamous Epith Cells Urine Bacteria Hyaline Casts Urine Osmolality Ur Random Sodium Stool Occult Blood Urine Opiates Screen Urine Fentanyl Screen Ur Barbiturates Screen Ur Phencyclidine Scrn Ur Amphetamines Screen U Benzodiazepines Scrn Urine Cocaine Screen U Marijuana (THC) Screen Ethyl Alcohol Blood Type Antibody Screen 01/08/23 01/08/23 01/08/23 09:33 10:18 10:18 WBC RBC Hgb Hct MCV MCH MCHC RDW Plt Count MPV Immature Gran % (Auto) Neut % (Auto) Lymph % (Auto) [place] % (Auto) Eos % (Auto) Baso % (Auto) Lymph # (Auto) [place] # (Auto) Eos # (Auto) Baso # (Auto) Abs Immat Gran (auto) Absolute Neuts (auto) Absolute Nucleated RBC Nucleated RBC % (auto) Smear Tech's Comments Absolute Retic Percent Retic Immature Retic Fraction Retic Hgb Equivalent Haptoglobin Sodium Potassium Chloride Carbon Dioxide Anion Gap BUN Creatinine Estim Creat Clear Calc Estimated GFR Random Glucose Calcium Magnesium Iron TIBC % Saturation Unsat Iron Binding Ferritin Total Bilirubin Direct Bilirubin AST ALT Alkaline Phosphatase Lactate Dehydrogenase Troponin I High Sens Total Protein Albumin Lipase Alpha Fetoprotein Vitamin B12 987 H Folate 18.3 TSH Free T4 Random Cortisol Urine Color Urine Appearance Urine pH Ur Specific [place] Urine Protein Urine Glucose (UA) Urine Ketones Urine Blood Urine Nitrite Ur Leukocyte Esterase Urine RBC Urine WBC Ur Squamous Epith Cells Urine Bacteria Hyaline Casts Urine Osmolality 488 Ur Random Sodium 138.0 Stool Occult Blood Urine Opiates Screen Urine Fentanyl Screen Ur Barbiturates Screen Ur Phencyclidine Scrn Ur Amphetamines Screen U Benzodiazepines Scrn Urine Cocaine Screen U Marijuana (THC) Screen Ethyl Alcohol Blood Type Antibody Screen 01/08/23 01/08/23 01/08/23 13:13 13:13 13:13 WBC RBC Hgb Hct MCV MCH MCHC RDW Plt Count MPV Immature Gran % (Auto) Neut % (Auto) Lymph % (Auto) [place] % (Auto) Eos % (Auto) Baso % (Auto) Lymph # (Auto) [place] # (Auto) Eos # (Auto) Baso # (Auto) Abs Immat Gran (auto) Absolute Neuts (auto) Absolute Nucleated RBC Nucleated RBC % (auto) Smear Tech's Comments Absolute Retic 0.044 Percent Retic 1.9 H Immature Retic Fraction 26.6 H Retic Hgb Equivalent 38.6 H Haptoglobin 67 Sodium Potassium Chloride Carbon Dioxide Anion Gap BUN Creatinine Estim Creat Clear Calc Estimated GFR Random Glucose Calcium Magnesium Iron TIBC % Saturation Unsat Iron Binding Ferritin Total Bilirubin Direct Bilirubin AST ALT Alkaline Phosphatase Lactate Dehydrogenase 244 Troponin I High Sens Total Protein Albumin Lipase Alpha Fetoprotein Vitamin B12 Folate TSH Free T4 Random Cortisol Urine Color Urine Appearance Urine pH Ur Specific [place] Urine Protein Urine Glucose (UA) Urine Ketones Urine Blood Urine Nitrite Ur Leukocyte Esterase Urine RBC Urine WBC Ur Squamous Epith Cells Urine Bacteria Hyaline Casts Urine Osmolality Ur Random Sodium Stool Occult Blood Urine Opiates Screen Urine Fentanyl Screen Ur Barbiturates Screen Ur Phencyclidine Scrn Ur Amphetamines Screen U Benzodiazepines Scrn Urine Cocaine Screen U Marijuana (THC) Screen Ethyl Alcohol Blood Type Antibody Screen 01/08/23 01/09/23 01/09/23 16:46 05:48 05:48 WBC 10.4 RBC 2.08 L Hgb 8.4 L 7.9 L Hct 22.9 L 21.5 L MCV 103.4 H MCH 38.0 H MCHC 36.7 H RDW 18.9 H Plt Count 92 L MPV 11.7 Immature Gran % (Auto) Neut % (Auto) Lymph % (Auto) [place] % (Auto) Eos % (Auto) Baso % (Auto) Lymph # (Auto) [place] # (Auto) Eos # (Auto) Baso # (Auto) Abs Immat Gran (auto) Absolute Neuts (auto) Absolute Nucleated RBC 0.070 H Nucleated RBC % (auto) 0.7 H Smear Tech's Comments Absolute Retic Percent Retic Immature Retic Fraction Retic Hgb Equivalent Haptoglobin Sodium 127 L Potassium 4.0 Chloride 100 Carbon Dioxide 20 L Anion Gap 11 L BUN 4 L Creatinine 0.50 Estim Creat Clear Calc 139.4 Estimated GFR > 60 Random Glucose 113 Calcium 8.0 L Magnesium 1.6 Iron TIBC % Saturation Unsat Iron Binding Ferritin Total Bilirubin Direct Bilirubin AST ALT Alkaline Phosphatase Lactate Dehydrogenase Troponin I High Sens Total Protein Albumin Lipase Alpha Fetoprotein Vitamin B12 Folate TSH Free T4 Random Cortisol Urine Color Urine Appearance Urine pH Ur Specific [place] Urine Protein Urine Glucose (UA) Urine Ketones Urine Blood Urine Nitrite Ur Leukocyte Esterase Urine RBC Urine WBC Ur Squamous Epith Cells Urine Bacteria Hyaline Casts Urine Osmolality Ur Random Sodium Stool Occult Blood Urine Opiates Screen Urine Fentanyl Screen Ur Barbiturates Screen Ur Phencyclidine Scrn Ur Amphetamines Screen U Benzodiazepines Scrn Urine Cocaine Screen U Marijuana (THC) Screen Ethyl Alcohol Blood Type Antibody Screen 01/10/23 01/10/23 01/10/23 01:44 08:03 08:03 WBC 10.1 RBC 2.11 L Hgb 8.0 L Hct 21.7 L MCV 102.8 H MCH 37.9 H MCHC 36.9 H RDW 19.9 H Plt Count 145 L D MPV 11.8 Immature Gran % (Auto) Neut % (Auto) Lymph % (Auto) [place] % (Auto) Eos % (Auto) Baso % (Auto) Lymph # (Auto) [place] # (Auto) Eos # (Auto) Baso # (Auto) Abs Immat Gran (auto) Absolute Neuts (auto) Absolute Nucleated RBC 0.050 H Nucleated RBC % (auto) 0.5 H Smear Tech's Comments Absolute Retic Percent Retic Immature Retic Fraction Retic Hgb Equivalent Haptoglobin Sodium 127 L Potassium 3.6 Chloride 100 Carbon Dioxide 20 L Anion Gap 11 L BUN 5 L Creatinine 0.58 Estim Creat Clear Calc 120.2 Estimated GFR > 60 Random Glucose 128 H Calcium 8.1 L Magnesium 1.5 L Iron TIBC % Saturation Unsat Iron Binding Ferritin Total Bilirubin Direct Bilirubin AST ALT Alkaline Phosphatase Lactate Dehydrogenase Troponin I High Sens Total Protein Albumin Lipase Alpha Fetoprotein Vitamin B12 Folate TSH Free T4 Random Cortisol Urine Color Urine Appearance Urine pH Ur Specific [place] Urine Protein Urine Glucose (UA) Urine Ketones Urine Blood Urine Nitrite Ur Leukocyte Esterase Urine RBC Urine WBC Ur Squamous Epith Cells Urine Bacteria Hyaline Casts Urine Osmolality Ur Random Sodium Stool Occult Blood NEGATIVE Urine Opiates Screen Urine Fentanyl Screen Ur Barbiturates Screen Ur Phencyclidine Scrn Ur Amphetamines Screen U Benzodiazepines Scrn Urine Cocaine Screen U Marijuana (THC) Screen Ethyl Alcohol Blood Type Antibody Screen 01/11/23 01/11/23 01/12/23 07:24 07:24 05:57 WBC RBC Hgb Hct MCV MCH MCHC RDW Plt Count MPV Immature Gran % (Auto) Neut % (Auto) Lymph % (Auto) [place] % (Auto) Eos % (Auto) Baso % (Auto) Lymph # (Auto) [place] # (Auto) Eos # (Auto) Baso # (Auto) Abs Immat Gran (auto) Absolute Neuts (auto) Absolute Nucleated RBC Nucleated RBC % (auto) Smear Tech's Comments Absolute Retic Percent Retic Immature Retic Fraction Retic Hgb Equivalent Haptoglobin Sodium 129 L 125 L Potassium 3.8 3.5 Chloride 101 99 Carbon Dioxide 22 21 L Anion Gap 10 L 9 L BUN 5 L 5 L Creatinine 0.54 0.51 Estim Creat Clear Calc 129.1 136.7 Estimated GFR > 60 > 60 Random Glucose 109 128 H Calcium 8.4 7.8 L D Magnesium 1.7 Iron TIBC % Saturation Unsat Iron Binding Ferritin Total Bilirubin 1.3 H Direct Bilirubin 0.8 H AST 49 H ALT 11 Alkaline Phosphatase 186 H Lactate Dehydrogenase Troponin I High Sens Total Protein 6.0 L Albumin 2.5 L Lipase Alpha Fetoprotein Vitamin B12 Folate TSH 4.88 H Free T4 1.10 Random Cortisol 9.7 Urine Color Urine Appearance Urine pH Ur Specific [place] Urine Protein Urine Glucose (UA) Urine Ketones Urine Blood Urine Nitrite Ur Leukocyte Esterase Urine RBC Urine WBC Ur Squamous Epith Cells Urine Bacteria Hyaline Casts Urine Osmolality Ur Random Sodium Stool Occult Blood Urine Opiates Screen Urine Fentanyl Screen Ur Barbiturates Screen Ur Phencyclidine Scrn Ur Amphetamines Screen U Benzodiazepines Scrn Urine Cocaine Screen U Marijuana (THC) Screen Ethyl Alcohol Blood Type Antibody Screen 01/13/23 01/13/23 01/14/23 07:51 13:40 05:56 WBC 12.2 H 10.7 RBC 2.42 L 2.23 L Hgb 8.8 L 8.2 L Hct 25.5 L 23.1 L MCV 105.4 H 103.6 H MCH 36.4 H 36.8 H MCHC 34.5 35.5 RDW 19.9 H 19.2 H Plt Count 381 D 389 MPV 10.1 9.9 Immature Gran % (Auto) Neut % (Auto) Lymph % (Auto) [place] % (Auto) Eos % (Auto) Baso % (Auto) Lymph # (Auto) [place] # (Auto) Eos # (Auto) Baso # (Auto) Abs Immat Gran (auto) Absolute Neuts (auto) Absolute Nucleated RBC 0.000 0.000 Nucleated RBC % (auto) 0.0 0.0 Smear Tech's Comments Absolute Retic Percent Retic Immature Retic Fraction Retic Hgb Equivalent Haptoglobin Sodium 129 L Potassium 3.7 Chloride 101 Carbon Dioxide 22 Anion Gap 10 L BUN 4 L Creatinine 0.50 Estim Creat Clear Calc 139.4 Estimated GFR > 60 Random Glucose 105 Calcium 8.0 L Magnesium 1.7 Iron TIBC % Saturation Unsat Iron Binding Ferritin Total Bilirubin Direct Bilirubin AST ALT Alkaline Phosphatase Lactate Dehydrogenase Troponin I High Sens Total Protein Albumin Lipase Alpha Fetoprotein Vitamin B12 Folate TSH Free T4 Random Cortisol Urine Color Urine Appearance Urine pH Ur Specific [place] Urine Protein Urine Glucose (UA) Urine Ketones Urine Blood Urine Nitrite Ur Leukocyte Esterase Urine RBC Urine WBC Ur Squamous Epith Cells Urine Bacteria Hyaline Casts Urine Osmolality Ur Random Sodium Stool Occult Blood Urine Opiates Screen Urine Fentanyl Screen Ur Barbiturates Screen Ur Phencyclidine Scrn Ur Amphetamines Screen U Benzodiazepines Scrn Urine Cocaine Screen U Marijuana (THC) Screen Ethyl Alcohol Blood Type Antibody Screen 01/14/23 01/15/23 05:56 05:55 WBC RBC Hgb Hct MCV MCH MCHC RDW Plt Count MPV Immature Gran % (Auto) Neut % (Auto) Lymph % (Auto) [place] % (Auto) Eos % (Auto) Baso % (Auto) Lymph # (Auto) [place] # (Auto) Eos # (Auto) Baso # (Auto) Abs Immat Gran (auto) Absolute Neuts (auto) Absolute Nucleated RBC Nucleated RBC % (auto) Smear Tech's Comments Absolute Retic Percent Retic Immature Retic Fraction Retic Hgb Equivalent Haptoglobin Sodium 129 L 129 L Potassium 3.6 3.6 Chloride 102 102 Carbon Dioxide 22 22 Anion Gap 9 L 9 L BUN 4 L 5 L Creatinine 0.48 L 0.51 Estim Creat Clear Calc 145.2 136.7 Estimated GFR > 60 > 60 Random Glucose 109 91 Calcium 7.7 L 7.9 L Magnesium Iron TIBC % Saturation Unsat Iron Binding Ferritin Total Bilirubin 0.7 Direct Bilirubin 0.4 AST 55 H ALT 14 Alkaline Phosphatase 179 H Lactate Dehydrogenase Troponin I High Sens Total Protein 6.3 L Albumin 2.4 L Lipase Alpha Fetoprotein Vitamin B12 Folate TSH Free T4 Random Cortisol Urine Color Urine Appearance Urine pH Ur Specific [place] Urine Protein Urine Glucose (UA) Urine Ketones Urine Blood Urine Nitrite Ur Leukocyte Esterase Urine RBC Urine WBC Ur Squamous Epith Cells Urine Bacteria Hyaline Casts Urine Osmolality Ur Random Sodium Stool Occult Blood Urine Opiates Screen Urine Fentanyl Screen Ur Barbiturates Screen Ur Phencyclidine Scrn Ur Amphetamines Screen U Benzodiazepines Scrn Urine Cocaine Screen U Marijuana (THC) Screen Ethyl Alcohol Blood Type Antibody Screen Narrative Narrative: 01/05/23 EKG. Sinus tachycardia 124. Low voltage QRS Procedure Date:? 01/14/2023 Procedure Type:? Transthoracic Echocardiogram Location:? [facility] Symptoms:? persistent tachycardia Study Quality: ? Adequate ECG Rhythm:? ? ? Tachycardia ?? ? Conclusions: - Normal left ventricular size, thickness, and systolic function. The visually estimated ejection fraction is between 55-60%.? ? ? Diastolic function is normal for age.? - Normal right ventricular cavity size and systolic function.? ? - There is no evidence of pericardial effusion.? Findings Left Ventricle Normal left ventricular size, thickness, and systolic function. The visually estimated ejection fraction is between 55-60%.? Diastolic function is normal for age. Airway Mallampati Class: II TM Dist: >3cm Neck ROM: Full Denture: Upper and Lower Loose/Missing/Broken Teeth: Yes (No teeth in. Has ill-fitting dentures) Heart: RRR Lungs: CTAB Assessment and Plan Assessment Anesthesia Assessment: Anesthesia Plan Discussed and Chart Reviewed Final Anesthetic Review Family History of Problems with Anesthesia: No History of Problems with Anesthesia: No NPO: Yes ASA Class: III Final Preanesthetic Review: No Changes in Pt Med Stat, Meds/Allgs Chart Reviewed, Consent Obtained/Reviewed and Anes Risks/Benef Reviewed Patient Risk: Intermediate Procedure Risk: Low Assessment/Block/Sedation in SS: Assess/Block/Sedation-SS Anesthetic Plan Anesthetic Plan: MAC: Disposition: Standard PACU
--- NOTE | 2023-01-15 15:02 | MHC.SHP ---
Pre-Procedural Eval Section A Date of Service: 01/15/23 The patient is an INPATIENT: Yes The History & Physical has been completed within 30 days and I have reviewed it.: Yes Section B Chief Complaint: Alcohol Withdrawal Allergies: Allergies Allergy/AdvReac Type Severity Reaction Status Date / Time No Known Allergies Allergy Verified 07/31/22 12:28 Plan Diagnosis/Plan: Unchanged I have reviewed the history and physical and performed a pertinent physical examination on my patient. No changes have occurred unless specified. Time Spent With Patient Time: Total time managing care of this patient today ____ minutes.
--- NOTE | 2023-01-15 15:39 | P.OP_ITS ---
Operative Note Operative Note Date of Service: 01/15/23 Narrative: Procedure: Esophagogastroduodenoscopy Endoscopist: Yoselin Saunders MD Indication: Abd pain Anesthesia Provider: Dr Suellen Barker Anesthesia Type: MAC Instrument: Olympus [id number] ?? EGD Procedure:?? The procedure, indications, preparation and potential complications were reviewed with the patient, who indicated understanding and gave written informed consent to proceed. A physical exam was performed. The endoscope was introduced through the mouth, and advanced to the second part of duodenum. The mucosa was carefully examined on slow withdrawal of the endoscope. The patient tolerated the procedure well. There were no immediate complications.? ? EGD Findings:? * Esophagus:? The esophagus was fibrotic appearing and narrow, with distinct stricturing at multiple levels which were easily dilated with the regular gastroscope and superficial tears were noted at 20 cm, 30 cm and 33 cm indicating successful dilation. The Z line was at 35 cm with a non-obstructing Schatzki's ring. There was a small hiatal hernia with the diaphragmatic pinch at 39 cm. Middle and lower esophagus forceps biopsies were obtained to rule out eosinophilic esophagitis. * Stomach:? Normal mucosa was noted in the stomach. Retroflexion in the stomach showed Hill grade III hiatal hernia. * Duodenum:? Normal mucosa was noted in the whole of the examined duodenum. Biopsies were taken from duodenal bulb and second portion of the duodenum to rule out celiac sprue. ? EGD Impressions:? * Fibrotic appearing esophagus with multiple strictures (dilation, biopsy) * Schatzki's ring * Hiatal hernia * Normal stomach * Normal duodenum (biopsy) ?? Recommendations:?? * Follow biopsy results. Our office will call or send a letter with results within 7-10 days. * Cont omeprazole 40mg PO once daily * Add PO viscous lidocaine or magic mouth wash TID x 3-5 days for symptomatic relief * Liquid diet for 4 hours and then advance as tolerated. * Avoid NSAIDs. * EtOH and smoking cessation counseling * Will set up outpatient follow up with Dr Arreaga Above has been reviewed with the patient.
[2023-01-15] MEDS: Mag&Al/Sim/Diphenhyd/Lidocaine 10 ML ORAL.SUSP PO ×2 (15:58→20:11)
[2023-01-15] MEDS: Albuterol Sulfate (0.083%) 2.5 MG/3 ML VIAL.NEB INHALE (16:17)
[2023-01-15] MEDS: Sucralfate Oral Suspension 1 GM/10 ML ORAL.SUSP PO ×2 (16:43→20:13)
[2023-01-15] MEDS: Sodium Chloride Tab 1 GM TABLET PO ×2 (16:44→20:12)
[2023-01-15] MEDS: Magnesium Oxide 400 MG TABLET PO (16:44)
[2023-01-15] MEDS: Lactated Ringers 1,000 ML 100 ML IVCONT (16:44)
[2023-01-16] MEDS: Lactated Ringers 1,000 ML 100 ML IVCONT (02:10)
[2023-01-16 03:32] VITALS: BP 115/67; PULSE 98; RESP 16; TEMP 36.7; O2SAT 95
[2023-01-16] MEDS: hydrOXYzine HCL 25 MG TABLET PO (03:40)
[2023-01-16] MEDS: Omeprazole 40 MG CAPSULE.DR PO (05:38)
[2023-01-16] MEDS: Sucralfate Oral Suspension 1 GM/10 ML ORAL.SUSP PO ×2 (07:04→11:59)
[2023-01-16 07:33] VITALS: BP 126/74; PULSE 88; RESP 18; TEMP 36.9; O2SAT 93
--- NOTE | 2023-01-16 07:54 | PM.PNNEP ---
Subjective Subjective Date of Service: 01/16/23 Interval history: seen and examined I want to sleep no complaints Physical Exam Vital Signs: Vital Signs: Last Vital Signs Temp 98.5 F 01/16/23 07:33 Pulse 88 01/16/23 07:33 Resp 18 01/16/23 07:33 BP 126/74 01/16/23 07:33 Pulse Ox 93 01/16/23 07:33 O2 Del Method Room Air 01/16/23 07:33 O2 Flow Rate 2 01/15/23 16:34 BMI result Body Mass Index 22.5 Const: General: No acute distress HEENT: Head: Yes normocephalic and Yes atraumatic Neck: Neck: Yes supple Resp: Auscultation: diminished lung sounds Cardio: Heart sounds: S1 normal heart sound present and S2 normal heart sound present GI: Palpation (GI): Soft to palpation Extrem: General: No edema Objective Data Labs 01/14/23 05:56 01/15/23 05:55 Procedures Date of Service Date of Service: 01/16/23 Assessment & Plan Assessment and plan (1) Hyponatremia: Status: Acute Plan euvolemic hypotonic hyponatremia urine osmolality 488, urine sodium 138 pain is a strong stimulus for ADH REC c/w sodium chloride 1 g tid c/w fluid restriction 1.5 L avoid urea follow electrolytes Time Spent With Patient Time: Total time managing care of this patient today ____ minutes. Progress Note: Quality Stroke Does the patient have a stroke diagnosis?: No
[2023-01-16] MEDS: Mag&Al/Sim/Diphenhyd/Lidocaine 10 ML ORAL.SUSP PO (07:58)
[2023-01-16] MEDS: polyethylene glycoL 3350 17 GM POWD.PACK PO (07:59)
[2023-01-16] MEDS: Nicotine 14 MG PATCH.TD24 TRANSDERMA (07:59)
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
--- NOTE | 2023-01-16 08:22 | PC.NURSE ---
Pt refused PO Pills, CONTROL CLERK HEAD Notified.
[2023-01-16 08:29] LABS: Sodium 134 mmol/L (135-145)
--- NOTE | 2023-01-16 10:01 | MHC.CM.PN ---
CM MET WITH PT TO DISCUSS DC PLAN PT CONFIRMS HE WOULD LIKE TO DC TODAY HE IS AWARE HOME PT WAS RECOMMENDED HE IS ALSO AWARE CM IS UNABLE TO [facility] HE IS NOT ACTIVE WITH A PCP HE REPORTS HE MAY BE INTERESTED IN OUTPATIENT PT HE WILL DC HOME TODAY WITH REFERRAL TO OP PT PT TO [facility] TRANSP[facility]
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
--- NOTE | 2023-01-17 11:25 | HO.POSTANES ---
Post Anesthesia Evaluation Post Anesthesia Evaluation Date of Service: 01/17/23 Anesthesia: Monitored Mental Status: Awake Pain Control: Satisfactory Nausea/Vomiting: None Hydration: Adequate Anesthesia-Related Issues: No Anes. Related Issues
== END 2023-01-16 12:46 | disposition home or self-care (01) | DRG 392 ==
LOC: HO.ED 15:18 → HO.EDOVER 23:25 → HO.S3 01-06 06:40
PROVIDERS: Internal Medicine; Physician Assistant; Physician Assistant Medical; Admitting Provider Internal Medicine; Emergency Provider Emergency Medicine Emergency Medical Services; PCP Internal Medicine; Visit Provider Nurse Practitioner Acute Care
PROC: 0DJ08ZZ Inspection of Upper Intestinal Tract, Via Natural or Artificial Opening Endoscopic (ICD-10-PCS; CPT 43235; principal; 2023-01-15 15:00)
DX: K29.20 Alcoholic gastritis without bleeding (principal); F10.139 Alcohol abuse with withdrawal, unspecified; E87.1 Hypo-osmolality and hyponatremia; F17.210 Nicotine dependence, cigarettes, uncomplicated; K22.2 Esophageal obstruction; D53.9 Nutritional anemia, unspecified; K70.30 Alcoholic cirrhosis of liver without ascites; R00.0 Tachycardia, unspecified; K44.9 Diaphragmatic hernia without obstruction or gangrene; D69.6 Thrombocytopenia, unspecified; S50.02XA Contusion of left elbow, initial encounter; V19.88XA Pedal cyclist (driver) (passenger) injured in other specified transport accidents, initial encounter; Y90.6 Blood alcohol level of 120-199 mg/100 ml; I10 Essential (primary) hypertension; F10.129 Alcohol abuse with intoxication, unspecified; E87.6 Hypokalemia; Z71.6 Tobacco abuse counseling; Z79.899 Other long term (current) drug therapy
CPT/HCPCS: 36415; 70450; 71260; 72125; 73070; 74176; 74177; 74183; 80048; 80076; 80307; 81001; 82105; 82272; 82533; 82607; 82728; 82746; 83010; 83540; 83615; 83690; 83735; 83935; 84295; 84300; 84439; 84443; 84484; 85014; 85018; 85025; 85027; 85045; 86850; 86900; 86901; 88305; 88312; 93005; 93306; 94640; 97161; 97530; 99285; A9585; J2370; J2371; J2405; J2560; J3475; P9047; Q9967

== ENCOUNTER → 2023-01-05 15:49 | Outpatient (BNV) | payer MEDICARE, MEDICAID, SELFPAY | PROVIDERS: Admitting Provider Internal Medicine; Emergency Provider Emergency Medicine Emergency Medical Services; Visit Provider Internal Medicine Cardiovascular Disease | DX: R00.0 Tachycardia, unspecified (principal); R94.31 Abnormal electrocardiogram [ECG] [EKG] | CPT/HCPCS: 93010 ==

== ENCOUNTER 2023-01-05 23:21 | Outpatient (BNV) | payer MEDICARE, MEDICAID, SELFPAY | END 2023-01-14 07:00 | PROVIDERS: Admitting Provider Internal Medicine; Emergency Provider Emergency Medicine Emergency Medical Services; PCP Internal Medicine; Visit Provider Internal Medicine Cardiovascular Disease | DX: R00.0 Tachycardia, unspecified (principal) | CPT/HCPCS: 93306 ==

== ENCOUNTER → 2023-01-05 23:21 | Outpatient (BNV) | payer MEDICARE, MEDICAID, SELFPAY | PROVIDERS: Admitting Provider Internal Medicine; Emergency Provider Emergency Medicine Emergency Medical Services; Visit Provider Internal Medicine Gastroenterology | DX: K22.2 Esophageal obstruction (principal) | CPT/HCPCS: 43239; 99222; 99232 ==

== ENCOUNTER → 2023-01-05 23:21 | Outpatient (BNV) | payer MEDICARE, MEDICAID, SELFPAY | PROVIDERS: Admitting Provider Internal Medicine; Emergency Provider Emergency Medicine Emergency Medical Services; Visit Provider Internal Medicine | DX: F10.939 Alcohol use, unspecified with withdrawal, unspecified (principal) | CPT/HCPCS: 99222; 99232; 99233; 99239 ==

== ENCOUNTER 2023-01-21 14:49 | Emergency (ER) | payer MEDICARE, MEDICAID, SELFPAY ==
[2023-01-21 15:10] VITALS: BP 103/69; BP 118/64; PULSE 105; PULSE 95; RESP 16; TEMP 36.6; O2SAT 96; O2SAT 98; BMI 22.7
--- NOTE | 2023-01-21 15:51 | ED_ITS ---
HPI - Altered Mental Status General Chief Complaint: Altered Mental Status Stated Complaint: CONFUSED PER BROTHER,SEEN RECENTLY PER EMS Time Seen by Provider: 01/21/23 15:41 Source: patient and EMS Mode of arrival: EMS Limitations: no limitations History of Present Illness HPI narrative: Patient alcoholic just discharged on 01/16 after alcohol withdrawal and DENIS brother called EMS as patient not eating. According to patient he did eat last night but otherwise he is eating and drinking fluids not drinking any alcohol last alcohol drink was 3 months ago patient denies any significant depression with anxiety no abdominal pain no fever or chills Related Data Previous Rx's Medication Instructions Recorded folic acid 1 mg tablet 1 mg PO DAILY #30 tabs 01/16/23 nicotine 14 mg/24 hr daily 14 mg transdermal DAILY #14 ea 01/16/23 transdermal patch omeprazole 40 mg capsule,delayed 40 mg PO DAILY@0630 #30 caps 01/16/23 release thiamine mononitrate (vit B1) 100 100 mg PO DAILY #30 tabs 01/16/23 mg tablet Allergies Allergy/AdvReac Type Severity Reaction Status Date / Time No Known Allergies Allergy Verified 07/31/22 12:28 Review of Systems Review of Systems: Yes all other systems are reviewed and are negative PMFSH Past Medical History Medical History Anxiety COVID-19 vaccine series completed Gout History of alcohol abuse History of recent fall HTN (hypertension) Hx of concussion Primary osteoarthritis of right hip Tobacco abuse Tongue abnormality Use of cane as ambulatory aid Wears dentures Surgical History History of arm fracture History of back surgery History of fracture of leg History of total left hip arthroplasty Hx of colonoscopy Family History Family History Father No problems noted. Mother Cirrhosis Social History Social History Household Members: Unknown / Unable to assess Housing: Unknown / Unable to assess Are you a primary senior care manager to a significant other at home: No Do you presently have visiting nurse or other home services: No Unable to assess alcohol history related to: Unknown Alcohol intake: former Patient Tobacco Use Status: Current everyday Tobacco user Tobacco use type: Cigarette Cigarette Packs Per Day: 1.5 Cigarettes Per Day: 30.0 Years Smoked: 46 e-Cigarette/Vaping Use: Never Used Second Hand Smoke Exposure: No Substance Use Type: Opiates Advance Directives: No Advance Directives Information Provided: No service: No Current occupational status: retired Current occupation: rt handed Physical Exam ED Vital Signs: Vital Signs - 24 hr 01/21/23 15:10 Temperature 97.8 F Pulse Rate 95 Respiratory Rate 16 Blood Pressure 103/69 Pulse Oximetry 96 Oxygen Delivery Method Room Air BMI result Body Mass Index 22.7 Appearance: Alert. Oriented X3. No acute distress. Eyes: PERRLA, No Nystagmus ENT: Pharynx normal. Oral Mucosa moist Neck: Normal inspection. Neck supple. CVS: Normal heart rate and rhythm. Pulses normal. Respiratory: No respiratory distress. Equal air entry bilateral, no wheezing/rales/rhonchi Abdomen: Soft and nontender. Bowel sounds are present, no mass palpable, no CVA tenderness Skin: Skin warm and dry. Normal skin color. Normal skin turgor. Extremities: No lower extremity edema. No calf tenderness Neuro: Oriented X 3. No motor deficit. No sensory deficit.No cerebellar signs , cranial nerves II-XII intact Medications Administered Discontinued Medications Generic Name Dose Route Start Last Admin Trade Name Freq PRN Reason Stop Dose Admin Sodium Chloride 1,000 mls @ 999 mls/hr 01/21/23 15:59 01/21/23 16:03 Ns IV 01/21/23 16:59 999 mls/hr .Q1H1M ONE Administration Thiamine HCl 500 mg/ Sodium 105 mls @ 210 mls/hr 01/21/23 15:59 01/21/23 16:05 Chloride IV 01/21/23 16:28 210 mls/hr ONCE ONE Administration Medical Decision Making Medical Decision Making [facility] Narrative: Patient received IV fluids and IV thiamine was given no confusion or nystagmus noticed in the ER labs were stable discharge patient home Differential Diagnosis Differential Diagnoses: The differential diagnosis associated with the presentation includes Korsakoff's psychosis/alcohol withdrawal/anxiety/depression Lab Data [facility] Lab Attestation statement: I reviewed the patient's lab results. 01/21/23 15:49 01/21/23 15:49 Labs: Lab Results 01/21/23 01/21/23 Range/Units 15:49 15:49 WBC 10.7 (4.8-10.8) X10*3/uL RBC 2.69 L D (4.60-5.80) X10*6/uL Hgb 9.6 L (14.0-18.0) g/dl Hct 28.8 L D (42.0-52.0) % MCV 107.1 H (80.0-98.0) fL MCH 35.7 H (27.0-33.0) pg MCHC 33.3 (31.0-36.0) g/dl RDW 17.3 H (11.0-16.0) % Plt Count 485 H (160-400) X10*3/uL MPV 8.8 L (9.4-12.4) fL Immature Gran % (Auto) 0.7 H (0.0-0.4) % Neut % (Auto) 67.7 (45-73) % Lymph % (Auto) 19.3 L (20-40) % [place] % (Auto) 10.8 (2-11) % Eos % (Auto) 0.8 (0-4) % Baso % (Auto) 0.7 (0-2) % Lymph # (Auto) 2.1 (1.2-4.9) X10*3/uL [place] # (Auto) 1.2 (0.1-1.2) X10*3/uL Eos # (Auto) 0.1 (0.0-0.4) X10*3/uL Baso # (Auto) 0.1 (0.0-0.2) X10*3/uL Abs Immat Gran (auto) 0.07 H (0.00-0.03) X10*3/uL Absolute Neuts (auto) 7.2 (2.0-8.3) x10*3/uL Absolute Nucleated RBC 0.000 (0.0-0.012) X10*3/uL Nucleated RBC % (auto) 0.0 (0.0-0.2) /100WBC Sodium 130 L (135-145) mmol/L Potassium 4.3 (3.3-5.1) mmol/L Chloride 101 (96-108) mmol/L Carbon Dioxide 19 L (22-29) mmol/L Anion Gap 14 (12-20) BUN 5 L (9-16) mg/dL Creatinine 0.68 (0.5-1.4) mg/dL Estim Creat Clear Calc 103.4 Estimated GFR > 60 Random Glucose 146 H (60-115) mg/dL Calcium 8.4 D (8.4-10.2) mg/dL Magnesium 1.8 (1.6-2.6) mg/dL Total Bilirubin 0.7 (0.0-1.0) mg/dL Direct Bilirubin 0.4 (0.0-0.5) mg/dL AST 60 H (5-37) U/L ALT 19 (0-40) U/L Alkaline Phosphatase 180 H (39-117) U/L Total Protein 7.3 (6.5-8.0) g/dL Albumin 2.7 L (3.5-5.0) g/dL Ethyl Alcohol < 10 mg/dL Discharge Plan Discharge Clinical Impression: Alcohol abuse with withdrawal Patient Disposition: Home, Self-Care Instructions: Abuse of Alcohol (ED) Additional Instructions: Continue vitamins and other medications Drink plenty of fluid Prescriptions: No Action nicotine 14 mg/24 hr Patch 24 Hour 14 mg transdermal DAILY Qty: 14 0RF omeprazole 40 mg Capsule,Delayed Release(Dr/Ec) 40 mg PO DAILY@0630 Qty: 30 0RF folic acid 1 mg Tablet 1 mg PO DAILY Qty: 30 0RF thiamine mononitrate (vit B1) 100 mg Tablet 100 mg PO DAILY Qty: 30 0RF
[2023-01-21 15:53] LABS: MANUAL DIFF FLAG NO
[2023-01-21 15:54] LABS: Basophils Absolute Auto 0.1 X10*3/uL (0.0-0.2); Basophils Percent Auto 0.7 % (0-2); Eosinophils Absolute Auto 0.1 X10*3/uL (0.0-0.4); Eosinophils Percent Auto 0.8 % (0-4); Hematocrit 28.8 % (42.0-52.0); Hemoglobin 9.6 g/dl (14.0-18.0); Imm Gran Abs Auto 0.07 X10*3/uL (0.00-0.03); Imm Gran Pct Auto 0.7 % (0.0-0.4); Lymphocytes Absolute Auto 2.1 X10*3/uL (1.2-4.9); Lymphocytes Percent Auto 19.3 % (20-40); Mean Corpuscular HGB Conc 33.3 g/dl (31.0-36.0); Mean Corpuscular Hemoglobin 35.7 pg (27.0-33.0); Mean Corpuscular Volume 107.1 fL (80.0-98.0); Mean Platelet Volume 8.8 fL (9.4-12.4); Monocytes Absolute Auto 1.2 X10*3/uL (0.1-1.2); Monocytes Percent Auto 10.8 % (2-11); Neutrophils Absolute Auto 7.2 x10*3/uL (2.0-8.3); Neutrophils Percent Auto 67.7 % (45-73); Platelet Count 485 X10*3/uL (160-400); Red Blood Count 2.69 X10*6/uL (4.60-5.80); Red Cell Distribution Width 17.3 % (11.0-16.0); White Blood Count 10.7 X10*3/uL (4.8-10.8)
[2023-01-21] MEDS: 0.9 % Sodium Chloride 1,000 ML 999 ML IV (16:03)
[2023-01-21] MEDS: Thiamine HCL 500 MG in 0.9 % Sodium Chloride 100 ML 210 MG IV (16:05)
[2023-01-21 16:52] LABS: Alanine Aminotransferase 19 U/L (0-40); Albumin Level 2.7 g/dL (3.5-5.0); Alkaline Phosphatase 180 U/L (39-117); Anion Gap 14 (12-20); Aspartate Amino Transferase 60 U/L (5-37); Bilirubin Direct 0.4 mg/dL (0.0-0.5); Bilirubin Total 0.7 mg/dL (0.0-1.0); Calcium 8.4 mg/dL (8.4-10.2); Carbon Dioxide 19 mmol/L (22-29); Chloride 101 mmol/L (96-108); Creatinine Clr Calc Pharmacy 103.4; Estimated Glomerular Filt Rate > 60; Ethanol < 10 mg/dL; Glucose Random 146 mg/dL (60-115); Magnesium 1.8 mg/dL (1.6-2.6); Potassium 4.3 mmol/L (3.3-5.1); Sodium 130 mmol/L (135-145); Total Protein 7.3 g/dL (6.5-8.0)
[2023-01-21 17:16] LABS: Blood Urea Nitrogen 5 mg/dL (9-16)
--- NOTE | 2023-01-21 17:19 | PC.NURSE ---
pt pulled out IV- requesting to leave. states he will DC pt. pt not willing to wait for papers- out to [facility] to call for ride.
== END 2023-01-21 17:23 | disposition home or self-care (01) ==
PROVIDERS: Nurse Practitioner Family; Emergency Provider Internal Medicine
DX: F10.139 Alcohol abuse with withdrawal, unspecified (principal); Y90.0 Blood alcohol level of less than 20 mg/100 ml; F17.210 Nicotine dependence, cigarettes, uncomplicated; Z71.6 Tobacco abuse counseling; Z79.899 Other long term (current) drug therapy
CPT/HCPCS: 36415; 80048; 80076; 80307; 83735; 85025; 96374; 99284; J3411

== ENCOUNTER 2023-03-11 13:54 | Outpatient (AMB) | payer MEDICARE, MEDICAID, SELFPAY ==
--- NOTE | 2023-03-11 13:55 | A.OFFVIS_ITS ---
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 Most history obtained via chart review as patient very poor historian, and quite irritable about being at appt. Reports last drink was 6 months ago Currently at [address] [place] [address] Drinking since he was 12 or 13 years old Previously on antabuse 30-40 years ago No history detox Denies BH diagnosis Previous PCP Dr. Shepherd Denies taking medications daily--however medication list sent from facility shows daily meds ordered Poor sleep, appetite improved Liver cirrhosis per hospitalist note. [facility] Medical History Anxiety COVID-19 vaccine series completed Gout History of alcohol abuse History of recent fall HTN (hypertension) Hx of concussion Primary osteoarthritis of right hip Tobacco abuse Tongue abnormality Use of cane as ambulatory aid Wears dentures Surgical History History of arm fracture History of back surgery History of fracture of leg History of total left hip arthroplasty Hx of colonoscopy Family History Father No problems noted. Mother Cirrhosis Social History Household Members: Unknown / Unable to assess Housing: Unknown / Unable to assess Are you a primary ambulatory care nurse to a significant other at home: No Do you presently have visiting nurse or other home services: No Unable to assess alcohol history related to: Unknown Alcohol intake: former Patient Tobacco Use Status: Current everyday Tobacco user Tobacco use type: Cigarette Cigarette Packs Per Day: 1.5 Cigarettes Per Day: 30.0 Years Smoked: 46 e-Cigarette/Vaping Use: Never Used Second Hand Smoke Exposure: No Substance Use Type: Opiates service: No Current occupational status: retired Current occupation: rt handed Review of Systems Const Reports as per HPI and Reports no additional complaints Neuro Reports confusion Psych Reports confusion Physical Exam Vital Signs: Last Vital Signs Pulse 84 03/11/23 14:06 BP 110/70 03/11/23 14:06 Pulse Ox 95 03/11/23 14:06 Oxygen Delivery Method Room Air 03/11/23 14:06 Const General: healthy appearing, no acute distress and confusion Orientation/consciousness: confusion Neuro General: confusion Assessment & Plan Assessment & Plan (1) Alcohol use disorder, severe, dependence: Code(s): F10.20 - Alcohol dependence, uncomplicated Plan: * due to cirrhosis, naltrexone not a good option at this time * campral TID * information written for patient on form * patient should come to appt with someone due to issues with recall and reporting Medications: New acamprosate 666 mg (2 x 333 mg) PO TID 180 tabs 1RF Coding Level of Care Code New Pt Level 3 (59770) Diagnoses Alcohol use disorder, severe, dependence F10.20
[2023-03-11 14:06] VITALS: BP 110/70; PULSE 84; O2SAT 95
== END 2023-03-11 14:53 | disposition home or self-care (01) ==
LOC: HO.HCC 13:54
PROVIDERS: Visit Provider Nurse Practitioner Psychiatric/Mental Health
DX: F10.20 Alcohol dependence, uncomplicated (principal)
CPT/HCPCS: 99203

== ENCOUNTER → 2023-03-11 13:54 | Outpatient (BNVA) | payer MEDICARE, MEDICAID, SELFPAY | PROVIDERS: Visit Provider Nurse Practitioner Psychiatric/Mental Health ==

== ENCOUNTER 2023-04-01 12:55 | Outpatient (AMB) | payer MEDICARE, MEDICAID, SELFPAY ==
--- NOTE | 2023-04-01 12:57 | MHC.OFFVIS ---
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 This feature writer informed brother that we were unaware patient had received injection until after he left last visit. Also expressed concern for patient's inability to accurately provide any health information. Encouraged brother to be present for visits moving forward. [facility] Medical History Anxiety COVID-19 vaccine series completed Gout History of alcohol abuse History of recent fall HTN (hypertension) Hx of concussion Primary osteoarthritis of right hip Tobacco abuse Tongue abnormality Use of cane as ambulatory aid Wears dentures Surgical History History of arm fracture History of back surgery History of fracture of leg History of total left hip arthroplasty Hx of colonoscopy Family History Father No problems noted. Mother Cirrhosis Social History Household Members: Unknown / Unable to assess Housing: Unknown / Unable to assess Are you a primary wound care specialist to a significant other at home: No Do you presently have visiting nurse or other home services: No Unable to assess alcohol history related to: Unknown Alcohol intake: former Patient Tobacco Use Status: Current everyday Tobacco user Tobacco use type: Cigarette Cigarette Packs Per Day: 1.5 Cigarettes Per Day: 30.0 Years Smoked: 46 e-Cigarette/Vaping Use: Never Used Second Hand Smoke Exposure: No Substance Use Type: Opiates service: No Current occupational status: retired Current occupation: rt handed Review of Systems Const Reports as per HPI and Reports no additional complaints Neuro Reports confusion Psych Reports confusion Physical Exam Vital Signs: Last Vital Signs Pulse 90 04/01/23 13:02 BP 108/66 04/01/23 13:02 Pulse Ox 98 04/01/23 13:02 Oxygen Delivery Method Room Air 04/01/23 13:02 Const General: healthy appearing, no acute distress and confusion Orientation/consciousness: confusion Neuro General: confusion Assessment & Plan Assessment & Plan (1) Alcohol use disorder, severe, dependence: Code(s): F10.20 - Alcohol dependence, uncomplicated Plan: naltrexone PO ordered vivitrol injection ordered follow up 3 weeks for injection Medications: New naltrexone 50 mg PO DAILY 30 tabs 0RF naltrexone microspheres ER (Vivitrol) 380 mg IM Q4W 1 ea 5RF Coding Level of Care Code Est Pt Level 3 (60859) Diagnoses Alcohol use disorder, severe, dependence F10.20
[2023-04-01 13:02] VITALS: BP 108/66; PULSE 90; O2SAT 98
== END 2023-04-01 13:28 | disposition home or self-care (01) ==
PROVIDERS: Visit Provider Nurse Practitioner Psychiatric/Mental Health
DX: F10.20 Alcohol dependence, uncomplicated (principal)
CPT/HCPCS: 99213

== ENCOUNTER → 2023-04-01 12:55 | Outpatient (BNVA) | payer MEDICARE, MEDICAID, SELFPAY | PROVIDERS: Visit Provider Nurse Practitioner Psychiatric/Mental Health | DX: F10.20 Alcohol dependence, uncomplicated (principal) | CPT/HCPCS: 99212 ==

== ENCOUNTER 2025-04-16 13:32 | Inpatient (IN) | payer MEDICARE, MEDICAID, SELFPAY ==
[2025-04-16] VITALS (7 sets, daily range): BP systolic 84–114; BP diastolic 47–79; PULSE 95–114; RESP 16–22; TEMP 36.6–36.8; O2SAT 93–100; BMI 23.3
--- NOTE | ~2025-04-16 | XR_ITS ---
CLINICAL HISTORY: sob 1 view chest x-ray Comparison: CR/SR - XR CHEST 1 VIEW - 04/16/25 15:07 EDT Findings: Continued mild elevation of the right hemidiaphragm. Cardiac silhouette is within normal limits. There streaky perihilar densities bilaterally, [id number]-left. Also subtle streaky density in the right mid lung. No pleural effusion or pneumothorax. Remote left clavicle fracture is again seen. IMPRESSION: Perihilar streaky density extending into the lateral aspect of the right mid lung. The appearance would favor mild bronchitis/bronchiolitis. This document has been electronically signed by: Santiago Manzo MD on 04/17/2025 01:45:00
--- NOTE | ~2025-04-16 | CT_ITS ---
EXAMINATION: CT HEAD WITHOUT CONTRAST CLINICAL INFORMATION: Fall, head strike. COMPARISON: 01/05/2023, 01/19/2022. TECHNIQUE: Contiguous axial imaging was performed from the skull base to vertex without intravenous administration of contrast. This CT examination was performed using dose optimization techniques as appropriate, variously including the following: *Automated exposure control *Adjustment of mA and/or kV according to patient size (this includes techniques or standardized protocols for targeted exams where dose is matched to indication/reason for exam; i.e. extremities or head) *Use of iterative reconstruction technique FINDINGS: There is no evidence of intracranial hemorrhage or extra-axial fluid collection. There is no mass effect, or edema. No CT evidence of acute territorial infarct. Ventricles, sulci, and cisterns are normal in size and configuration for patient age. No hydrocephalus. No midline shift. Negative hyperdense MCA sign. Negative insular ribbon sign. Patchy periventricular and deep white matter hypoattenuation is consistent with mild to moderate small vessel ischemic changes. 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 Normal pituitary. Atheromatous calcification of the bilateral carotid siphons. Globes and orbital contents image normally. There are bilateral lens replacements. No extracranial soft tissue abnormalities. Moderate mucosal thickening and small volume fluid level is seen in the right maxillary sinus, and bilateral sphenoid sinuses. The remainder of the paranasal sinuses, mastoid air cells, and tympanic cavities are normally aerated. No suspicious bony abnormalities. There are no acute fractures evident. CT/CT head/brain wo IV con IMPRESSION: 1. No acute intracranial abnormality. No fracture evident. 2. Moderate right maxillary and sphenoid paranasal sinus disease. Electronically signed by: Freddy Barahona MD 04/16/2025 03:50 PM EDT
--- NOTE | ~2025-04-16 | US_ITS ---
CLINICAL HISTORY: liver cirrhisis; hcc screen US limited to right upper quadrant Comparison: 04/17/2025 Findings: Liver is enlarged and reveals irregular contour, suggesting hepatic cirrhosis.. No focal hepatic lesions. No intrahepatic ductal dilatation. Right lobe length measures 19.4 cm. Limited views of the portal vein do not reveal color flow signal, findings could suggest portal venous thrombosis although may be related to technical limitations. Common bile duct measures 6-7 mm. Gallbladder reveals some layering sludge. No shadowing stones. There is mild wall thickening measuring up to 4 mm, a nonspecific finding in the setting of the ascites.. No sonographic Aguilar's sign. Right kidney is normal texture. No hydronephrosis. Right renal length is 11.8 cm. A [id number] amount of ascites is re-identified. Impression: 1. Liver appears reveal cirrhotic morphology with hepatomegaly as described above. 2. Small volume ascites. 3. Limited imaging through the portal vein failed to reveal blood flow by color Doppler interrogation. However, this may be technically limited. If portal venous thrombosis is clinically suspected, consider further evaluation with CT or MRI, including gadolinium enhancement. This document has been electronically signed by: Galdino Butt MD on 04/21/2025 15:17:23
--- NOTE | ~2025-04-16 | MR_ITS ---
CLINICAL HISTORY: Encephalopathy MR Brain with and without gadolinium Comparison: CT/REG/NC/SR - CT HEAD WITHOUT IV CONTRAST - 04/16/25 15:17 EDT Findings: No restricted diffusion. No intra-axial mass or hemorrhage. No midline shift. No hydrocephalus. Age appropriate cerebral volume loss. Patchy high FLAIR signal within the periventricular and subcortical white matter. Vascular flow voids are intact. Orbital contents are unremarkable. Moderate bilateral mastoid fluid. Severe bilateral sphenoid sinus mucosal thickening. Moderate bilateral ethmoid sinus mucosal thickening. Mild bilateral maxillary sinus mucosal thickening. No focal bone lesion. IMPRESSION: 1. No acute process. No recent infarct. 2. Volume loss and small vessel ischemic disease. 3. Sinus and mastoid disease. This document has been electronically signed by: Joanna Balderas MD on 04/26/2025 18:07:19
--- NOTE | ~2025-04-16 | XR_ITS ---
CLINICAL HISTORY: sob 1 view chest x-ray. Comparison: 05/11/2025 Findings: No new consolidation or effusion. Similar mild right midlung atelectasis or scarring. Similar mild increase markings throughout both lung [place]. Cardiac and mediastinal contours appear stable. Bones unremarkable. Impression: 1. No acute change compared with the prior exam. This document has been electronically signed by: Galdion Butt MD on 05/13/2025 14:26:49
--- NOTE | ~2025-04-16 | CT_ITS ---
EXAMINATION: CT CERVICAL SPINE WITHOUT CONTRAST CLINICAL INFORMATION: Status post fall. COMPARISON: January 05, 2023 TECHNIQUE: Contiguous axial images through the cervical spine using 3 mm collimation with bone and soft tissue algorithm. Sagittal and coronal reformatted images acquired. DLP: 277.[address] examination was performed using dose optimization techniques as appropriate, variously including the following: *Automated exposure control *Adjustment of mA and/or kV according to patient size (this includes techniques or standardized protocols for targeted exams where dose is matched to indication/reason for exam; i.e. extremities or head) *Use of iterative reconstruction technique FINDINGS: Limited by exclusion the lower aspect of C7 and the upper thoracic spine. Craniocervical junction is intact with normal alignment between the occipital condyles and lateral masses C1. C1 is intact with incomplete fusion posterior arch of C1, congenital. C2 is intact. C3 is intact. C4 is intact. C5 is intact. C6 is intact. C7 is intact. Bilateral facet joint hypertrophy at multiple levels. Calcified plaques in the V2 segments and the carotic arteries. No prevertebral compartment hematoma. Tympanic cavities and mastoid cells are aerated. Calcified plaques in the petrous and cavernous segments of the ICAs. Mucosal thickening and effervescent secretions in the sphenoid sinus. CT/CT cervical spine wo IV con IMPRESSION: Multilevel cervical spondylosis without acute fracture or trauma-related listhesis. Atherosclerosis disease. Acute on chronic saphenous sinus disease. Fleischner guidelines were followed. Electronically signed by: Marcelino Lemus MD 04/16/2025 03:54 PM EDT
--- NOTE | ~2025-04-16 | US_ITS ---
CLINICAL HISTORY: ascites ULTRASOUND ABDOMEN LIMITED Comparison: CT/REG/SR - CT ANGIO CHEST PE PROTOCOL - 04/17/25 03:36 EDT Findings: Ascites is identified in all 4 quadrants, right greater than left, with the largest pocket of fluid in the right lower quadrant. Impression: 1. Mild multiquadrant ascites. This document has been electronically signed by: Senait Mehta DO on 04/17/2025 17:59:51
--- NOTE | ~2025-04-16 | XR_ITS ---
CLINICAL HISTORY: new o nset SOB wheezing, drop in POX Exam: AP portable chest x-ray. Comparison: May 09, 2025. Findings: Cardiac silhouette is unchanged in size. Increasing streaky density within the perihilar and basilar regions of both lungs, [id number]-left. Potential tiny bilateral pleural effusions. No pneumothorax. Unchanged remote fracture of the left clavicle. Impression: Overall worsening appearance of the chest with increasing streaky densities and small bilateral pleural effusions. This can be seen with volume overload or bilateral pneumonitis. This document has been electronically signed by: Santiago Manzo MD on 05/11/2025 23:26:22
--- NOTE | ~2025-04-16 | XR_ITS ---
EXAMINATION: XR CHEST CLINICAL INFORMATION: resp failure COMPARISON: Chest radiographs on April 18, 2025 TECHNIQUE: Frontal view of the chest was obtained. FINDINGS: Devices/Tubes/Lines: EKG leads overlie the patient Lungs: Allowing to minor differences relates to patient position, the patchy airspace opacity involving the upper and mid left lung and mid right lung persist. There are now new areas of minimal opacity involving the medial left lower lung and right upper lung. Pleura: No pleural effusion or pneumothorax. Heart/Mediastinum: Cardiomediastinal silhouette is within normal limits. Bones/Soft Tissues: No acute findings. XR/XR chest 1V IMPRESSION: Mild interval progression of the multifocal and bilateral pneumonia, left greater than the right. Electronically signed by: Cirilo Gan MD 04/20/2025 08:01 AM EDT
--- NOTE | ~2025-04-16 | XR_ITS ---
CLINICAL HISTORY: sob 1 view chest x-ray Comparison: CR/SR - XR CHEST 1V - 04/20/25 07:35 EDT Findings: Increasing multifocal patchy opacities with air bronchograms in the right upper lobe, left upper lobe/lingula and left lower lobe. No significant pleural effusion or pneumothorax. Similar prominent/enlarged cardiac silhouette. Chronic appearing left clavicular fracture. IMPRESSION: Worsening exam from prior. This document has been electronically signed by: Jb Silverio MD on 04/20/2025 20:55:42
--- NOTE | ~2025-04-16 | FL_ITS ---
EXAMINATION: XR MODIFIED BARIUM SWALLOW CLINICAL INFORMATION: Dysphagia COMPARISON: None available. TECHNIQUE: Modified barium swallow performed by speech pathologist. FINDINGS: Patient swallowed solids or liquids of varying consistency under fluoroscopic monitoring. There is deep laryngeal penetration seen on swallowing thin liquids, and nectar consistency liquid.. FLUOROSCOPY TIME: 1.4 minutes DOSE AREA PRODUCT: 66 uGy-m2 (microgray-meter squared) FL/FL Modified Barium Swallow IMPRESSION: Laryngeal penetration seen on swallowing liquids. See speech pathology report for details. Electronically signed by: Neto Monterroso MD 05/08/2025 04:11 PM ANT MILAN
--- NOTE | ~2025-04-16 | XR_ITS ---
EXAMINATION: XR CHEST CLINICAL INFORMATION: cough COMPARISON: X-ray 04/21/2025 TECHNIQUE: Frontal view of the chest was obtained. FINDINGS: Cardiomediastinal silhouette is within normal limits. Mild right diaphragm elevation. Patchy/ hazy opacities in the right lung, interval improvement as compared to previous. Foci of hazy opacities in left lung. No pleural effusion. No pneumothorax is seen. XR/XR chest 1V IMPRESSION: Patchy hazy opacities in bilateral lungs, interval improvement as compared to previous. This could reflect inflammatory/infectious process. Electronically signed by: Neto Monterroso MD 05/09/2025 12:19 PM [facility] [place]
--- NOTE | ~2025-04-16 | CT_ITS ---
CLINICAL HISTORY: hypoxia, tachycardia, elevated d dimer CT angiography chest with contrast. 3D Postprocessing. Comparison: CR - XR CHEST 1V - 04/17/25 01:[address]/REG/NE/SR - CT CHEST WITH IV CONTRAST - 01/05/23 16:56 EDT Findings: Study is mildly limited by motion artifact. There is no evidence of a pulmonary embolism. Heart size is normal. There is no pericardial effusion. Thoracic aorta is normal in diameter. There is coronary artery calcification. There are no enlarged lymph nodes. There is mild centrilobular and paraseptal emphysema. There is mild atelectasis in the right lower lobe. There is a region of ground-glass opacity in the medial left upper lobe suggestive of pneumonia. There are trace bilateral pleural effusions. Trachea and central bronchi are widely patent. There is no acute fracture or suspicious lytic or sclerotic lesion. There are healing right rib fractures and old healed left rib fractures. Limited images of the upper abdomen demonstrate diffusely nodular liver consistent with cirrhosis. There is heterogeneous hepatic steatosis. There is partially visualized ascites. IMPRESSION: 1. No evidence of a pulmonary embolism. 2. Region of ground-glass opacity in the left upper lobe suggestive of pneumonia. Follow-up to ensure resolution is recommended. 3. Mild emphysema. 4. Cirrhosis, hepatic steatosis, and partially visualized ascites. This document has been electronically signed by: Dylan Chester MD on 04/17/2025 04:18:41
--- NOTE | ~2025-04-16 | XR_ITS ---
EXAMINATION: XR CHEST CLINICAL INFORMATION: weakness, falls COMPARISON: X-ray 05/20/2022 TECHNIQUE: Frontal view of the chest was obtained. FINDINGS: The cardiomediastinal silhouette is within normal limits. Slight elevation/undulation of the right hemidiaphragm. There is no focal consolidation, edema, or effusion. No pneumothorax. No acute osseous abnormality. XR/XR chest 1V IMPRESSION: No acute cardiopulmonary findings Electronically signed by: Neto Monterroso MD 04/16/2025 03:24 PM EDT
--- NOTE | ~2025-04-16 | CT_ITS ---
EXAMINATION: CT ABDOMEN AND PELVIS WITHOUT CONTRAST CLINICAL INFORMATION: Abdominal distention, vomiting, rule out SBO. COMPARISON: Abdomen US dated 04/21/2025. CT abdomen and pelvis 01/13/2023, and dating back to 01/19/2022. MRI abdomen 01/06/2023. TECHNIQUE: Multidetector volumetric imaging was performed from the superior aspect of the liver through the pubic symphysis. Sagittal and coronal reformatted images were obtained on the technologist's workstation. This CT examination was performed using dose optimization techniques as appropriate, variously including the following: *Automated exposure control *Adjustment of mA and/or kV according to patient size (this includes techniques or standardized protocols for targeted exams where dose is matched to indication/reason for exam; i.e. extremities or head) *Use of iterative reconstruction technique FINDINGS: Current study is limited without the benefit of contrast. LUNG BASES: There are small layering left greater than right pleural effusions. There is associated bibasilar passive atelectasis. There is parenchymal consolidation in the basal segments of the right lower lobe, and groundglass and reticular opacities in the lingular segment. These findings are suspicious for pneumonia. There is mild peribronchial thickening, most notable in the right lower lobe. The heart size is normal. There are heavy coronary calcifications present. There is no pericardial effusion. The esophagus appears patulous and mildly thickened in its distal aspect. LIVER, GALLBLADDER, AND BILIARY TREE: The liver is diffusely shrunken, macrolobulated, and cirrhotic in morphology. There are irregular poorly marginated hypoattenuating foci throughout the right hepatic lobe, especially involving segments 7 and 8, previously characterized as fatty infiltration although underlying hepatocellular carcinoma is not excluded.. Further characterization is not possible without contrast. The gallbladder demonstrates dependent hyperdensities, most likely gallstones and/or sludge. There is no wall thickening. There is trace pericholecystic fluid. There is perihepatic ascites present. PANCREAS: There are irregular calcifications in the head and uncinate process, suspicious for chronic pancreatitis. There is a small amount of stranding and fluid surrounding the body and tail of the pancreas, nonspecific. Recommend correlating with lipase. SPLEEN: Mild splenomegaly, with the AP diameter of the spleen measuring 13.6 cm. ADRENAL GLANDS: Unremarkable. KIDNEYS AND URETERS: There is mild bilateral perirenal stranding. There is no hydronephrosis, calculus, or mass. There is no hydroureter. Unenhanced kidneys otherwise normal. BLADDER: Decompressed and partially obscured by streak artifact from a left hip prosthesis. GASTROINTESTINAL TRACT: There is somewhat diffuse small bowel dilatation present involving the proximal, mid, and distal small bowel. There is no no discrete transition point to decompressed terminal ileum, but rather a gradual caliber reduction is present. There is evidence for kinking of the distal small bowel, suggesting possible underlying adhesions. The colon is gas and fluid-filled, without pathologic dilatation, inflammation, or obstruction. There is mild colonic diverticulosis, most notable in the sigmoid region. There is a rectal tube in place. The stomach is grossly normal in appearance. The duodenal sweep is unremarkable. There is no CT evidence of acute appendicitis. PERITONEUM: There is small to moderate volume ascites in the peritoneal cavity. There is no free intraperitoneal air. ABDOMINAL WALL: There is mild anasarca. There is a fat-containing left inguinal hernia, and a small right inguinal hernia. LYMPH NODES: No pathologic lymphadenopathy is identified. VASCULAR: There is heavy atheromatous calcification of the arterial structures. There is no aortic aneurysm. PELVIC VISCERA: The prostate is not enlarged. The seminal vesicles appear normal. OSSEOUS STRUCTURES: There is no suspicious lytic or blastic bone lesion. There are degenerative changes throughout the spine, and involving the SI joints and right hip joint. There is a left total left hip arthroplasty in place without complication evident. There are old healed left rib fractures noted. CT/CT abdomen pelvis wo IV con IMPRESSION: 1. There is diffuse dilatation of the majority of the small bowel, with a gradual caliber reduction into the terminal ileal region. No discrete transition point. Findings could represent a low-grade obstruction versus ileus. No definite high-grade obstruction is evident. 2. There is hepatic cirrhosis, with poorly defined and irregular hypoattenuating foci throughout the right hepatic lobe, similar to prior examinations. This was previously characterized as fatty infiltration although hepatocellular carcinoma cannot be excluded on this noncontrast examination based on the appearance. 3. There is a small to moderate volume intraperitoneal ascites and mild anasarca. 4. There is questionable inflammation of the pancreatic body and tail. Mild acute pancreatitis is a possibility. Recommend correlation with lipase. 5. There are abnormal opacities in the right lower lobe and lingula, for which pneumonia is a strong consideration. There are tiny pleural effusions. 6. There are several additional ancillary findings as discussed in the body of the report. Electronically signed by: Freddy Barahona MD 05/01/2025 12:23 PM ANT MILAN
--- NOTE | ~2025-04-16 | XR_ITS ---
EXAMINATION: XR CHEST CLINICAL INFORMATION: aspiration COMPARISON: 04/17/2025. TECHNIQUE: Frontal view of the chest was obtained. FINDINGS: The cardiac, hilar, and mediastinal contours are normal. Aortic mural calcifications. Confluent airspace opacity throughout the left lung. Patchy airspace opacity involving the mid right lung. No definite effusion. No pneumothorax. No focal osseous or soft tissue abnormality. XR/XR chest 1V IMPRESSION: Multifocal pneumonia with confluent opacity throughout the left lung. No definite effusion. Electronically signed by: Freddy Barahona MD 04/18/2025 04:55 PM EDT
--- NOTE | ~2025-04-16 | XR_ITS ---
CLINICAL HISTORY: Post intubation film, check to placement 1 view chest x-ray Comparison: CR - XR CHEST 1V - 04/20/25 20:09 EDT Findings: Well-positioned endotracheal tube. Diffuse interstitial prominence, ground-glass density and peribronchial thickening. Relative sparing of the right lower lobe. No acute fracture. IMPRESSION: Well-positioned endotracheal tube. Similar-appearing diffuse ill-defined opacities and interstitial prominence. This document has been electronically signed by: Ian Puentes MD on 04/21/2025 10:39:01
--- NOTE | 2025-04-16 14:33 | ECG_ITS ---
Test Reason : DIZZINESS Blood Pressure : */* mmHG Vent. Rate : 112 BPM Atrial Rate : 112 BPM P-R Int : 138 ms QRS Dur : 76 ms QT Int : 386 ms P-R-T Axes : -29 25 24 degrees QTcB Int : 526 ms Poor data quality Sinus tachycardia Low voltage QRS Cannot rule out Anterior infarct , age undetermined Abnormal ECG When compared with ECG of 05-Jan-2023 16:07, Nonspecific T wave abnormality now evident in Anterolateral leads Referred By: Kika Tejada Electronically Signed By: ERIN VOGEL MD
--- NOTE | 2025-04-16 14:46 | ED_ITS ---
HPI - General Adult General Chief complaint: General Medical Stated complaint: dizzy,weak ?dehydration Time Seen by Provider: 04/16/25 13:44 Source: patient, EMS and old records reviewed Mode of arrival: EMS Limitations: no limitations History of Present Illness ED Provider: BO LUX narrative: 64 yo male with PMH of severe ETOH use disorder last drink yesterday states he drinks about a pint a day, he does have hx of ETOH withdrawal seizure. He reports he has not been eating or drinking for the past two weeks due to ETOH abuse. He denies SI. He states he has fallen multiple times but other than abrasion to the forehead he has no other injuries. He states he is very thirsty. He denies GIB symptoms, no n/v/d, no abdominal pain, no dysuria. Patient does admit he had times he woke up on the floor confused when I asked if he could have a had a seizure in the last two weeks. Evan rob MD complaint: ETOH use, FTT, falls Onset (ago): week(s) (2) Location: head Radiation: non-radiation Severity: moderate Quality: aching Pain Consistency: constant Relieving factors: none Exacerbating factors: movement Associated symptoms: loss of appetite, malaise, nausea/vomiting and weakness Treatments prior to arrival: none Related Data Home Medications ?Medication ?Instructions ?Recorded ?Confirmed No Known Home Meds 04/16/25 04/16/25 Allergies Allergy/AdvReac Type Severity Reaction Status Date / Time No Known Allergies Allergy Verified 04/16/25 14:01 Review of Systems 2 Review of Systems: Constitutional : No Fever, No Chills, No Fatigue ENT/Mouth : No sore throat, No Rhinorrhea Eyes: No Eye Pain, No Swelling, No Redness Cardiovascular : No Chest Pain, No SOB, No Dyspnea on Exertion Respiratory : No Cough, No Sputum Gastrointestinal : pos Nausea, pos Vomiting, No Diarrhea, No abdominal Pain Genitourinary : No Dysuria, No Urinary Frequency, No Hematuria, Musculoskeletal : No joint pain, No Myalgias, No Joint Swelling Skin : No Skin Lesions, No rash Neuro : pos Weakness, No Numbness, No Dizziness, no Headache All other systems reviewed and are negative PMFSH Past Medical History Attestation statement: The following information was validated with the patient. Source: old records reviewed Medical History Liver lesion Lesion of liver History of alcohol abuse Tobacco abuse Gout Tongue abnormality COVID-19 vaccine series completed Use of cane as ambulatory aid History of recent fall Hx of concussion Anxiety Wears dentures Primary osteoarthritis of right hip HTN (hypertension) Surgical History History of total left hip arthroplasty Hx of colonoscopy History of fracture of leg History of arm fracture History of back surgery Family History Family History Father No problems noted. Mother Cirrhosis Social History Social History Household Members: Other Housing: Apartment Are you a primary gericare aide teacher to a significant other at home: No Do you presently have visiting nurse or other home services: Yes Alcohol intake: former Patient Tobacco Use Status: Current everyday Tobacco user Tobacco use type: Cigarette Cigarette Packs Per Day: 1 Cigarettes Per Day: 20.0 Years Smoked: 46 e-Cigarette/Vaping Use: Never Used Second Hand Smoke Exposure: No Substance Use Type: Opiates service: No Current occupational status: retired Current occupation: rt handed Physical Exam ED Vital Signs: Vital Signs - 24 hr 04/16/25 13:55 04/16/25 16:01 Temperature 97.8 F Pulse Rate 107 H 107 H Respiratory Rate 18 16 Blood Pressure 97/52 L 86/53 L Pulse Oximetry 100 100 Oxygen Delivery Method Room Air Room Air BMI result Body Mass Index 23.3 Appearance: Alert. Oriented X3. Mild acute distress. Eyes: Pupils equal, round and reactive to light. ENT: Pharynx glossy red tongue, dry MM, healing abrasion to R forehead Neck: Normal inspection. Neck supple. CVS: tachcyardic heart rate and rhythm. Pulses normal. Respiratory: No respiratory distress. Breath sounds normal. Abdomen: Soft and nontender. Skin: Skin warm and dry. Normal skin color. Normal skin turgor. Extremities: No lower extremity edema. No calf ttp Neuro: Oriented X 3. No motor deficit. No sensory deficit. tremors both hands noted Course Course Course Narrative: possible infection suspected at 345pm given lactic acidosis but this could also be due to withdrawal seizure give his reports of waking up on the ground lane TEJADA Reevaluation(s) Reevaluation #1: signed out to Dr. Dong pending further work up BO 04/16/25 408pm Reevaluation #2: patient's BP was low likely due to him on side - rechecked 100/36. Medications Administered Generic Name Dose Route Start Last Admin Trade Name Johnsonq PRN Reason Stop Dose Admin Ceftriaxone Sodium 1 gm 04/17/25 16:00 04/17/25 16:33 Ceftriaxone Sodium 1 Gm Vial IVPUSH 1 gm Q24H DAMIÁN Administration Folic Acid 1 mg 04/17/25 09:00 04/17/25 08:48 Folic Acid 1 Mg Tablet PO 04/20/25 08:59 Not Given DAILY DAMIÁN Thiamine HCl 100 mg/ Sodium 101 mls @ 202 mls/hr 04/16/25 21:00 04/17/25 22:29 Chloride IV 04/19/25 20:59 Infused BID DAMIÁN Infusion Octreotide Acetate 500 mcg/ 501 mls @ 50.1 mls/hr 04/17/25 14:00 04/17/25 23:51 Sodium Chloride IVCONT 50 mcg/hr .Q10H DAMIÁN 50.1 mls/hr 50 MCG/HR Administration Metronidazole 500 mg in 100 mls @ 100 mls/hr 04/17/25 14:00 04/17/25 23:39 Flagyl IV Infused Q8H DAMIÁN Infusion Lactated Ringer's 1,000 mls @ 100 mls/hr 04/17/25 14:00 04/18/25 00:10 Lr IVCONT 100 mls/hr .Q10H DAMIÁN Administration Multivitamins/Vitamin C 1 tab 04/17/25 09:00 04/17/25 08:48 Multivitamin Tablet PO 04/20/25 08:59 Not Given DAILY DAMIÁN Pantoprazole Sodium 40 mg 04/17/25 17:00 04/17/25 17:09 Pantoprazole Sodium 40 Mg/10 Ml Vial IVPUSH 40 mg BID@0630,1630 DAMIÁN Administration Phenobarbital 45 mg 04/17/25 09:00 04/17/25 22:20 Phenobarbital 15 Mg Tablet PO 04/18/25 21:01 45 mg BID DAMIÁN Administration Protocol Sodium Chloride 3 ml 04/17/25 00:00 04/17/25 21:44 0.9 % Sodium Chloride Flush 3 Ml Syringe IVFLUSH 3 ml QSHIFT DAMIÁN Administration Sodium Chloride 3 ml 04/17/25 00:00 04/18/25 00:18 0.9 % Sodium Chloride Flush 3 Ml Syringe IVFLUSH Not Given QSHIFT DAMIÁN Discontinued Medications Generic Name Dose Route Start Last Admin Trade Name Freq PRN Reason Stop Dose Admin Ceftriaxone Sodium 1 gm 04/16/25 15:30 04/16/25 15:51 Ceftriaxone Sodium 1 Gm Vial IVPUSH 04/16/25 15:31 1 gm ONCE ONE Administration Thiamine HCl 200 mg/ Sodium 102 mls @ 204 mls/hr 04/16/25 14:33 04/16/25 15:12 Chloride IV 04/16/25 15:02 204 mls/hr ONCE ONE Administration Magnesium Sulfate 2 gm in 50 mls @ 25 mls/hr 04/16/25 14:33 04/16/25 17:00 Magnesium Sulfate/H2o IV 04/16/25 16:32 Infused ONCE ONE Infusion Lactated Ringer's 1,000 mls @ 999 mls/hr 04/16/25 14:46 04/16/25 15:18 Lr IV 04/16/25 15:46 999 mls/hr .Q1H1M ONE Administration Lactated Ringer's 1,000 mls @ 999 mls/hr 04/16/25 15:30 04/17/25 16:09 Lr IV 04/16/25 16:30 Infused .Q1H1M ONE Infusion Lactated Ringer's 500 mls @ 999 mls/hr 04/16/25 15:30 04/17/25 01:35 Lr IV 04/16/25 16:00 Infused .Q31M DAMIÁN Infusion Magnesium Sulfate 2 gm in 50 mls @ 150 mls/hr 04/16/25 16:37 04/17/25 01:35 Magnesium Sulfate/H2o IV 04/16/25 16:56 Infused ONCE ONE Infusion Potassium Chloride 10 meq in 100 mls @ 100 mls/hr 04/16/25 19:00 04/17/25 01:43 Potassium Chloride/H20 IV 04/16/25 22:59 Infused Q1H DAMIÁN Infusion Sodium Chloride 1,000 mls @ 999 mls/hr 04/16/25 18:15 04/16/25 19:36 Ns IV 04/16/25 19:15 Infused .Q1H1M DAMIÁN Infusion Lactated Ringer's 1,000 mls @ 100 mls/hr 04/16/25 19:00 04/17/25 05:07 Lr IVCONT 0 mls/hr .Q10H DAMIÁN Infusion Ampicillin Sodium/Sulbactam 100 mls @ 200 mls/hr 04/17/25 01:45 04/17/25 16:13 Sodium 3 gm/ Sodium Chloride IV Not Given Q6H DAMIÁN Phytonadione 10 mg/ Sodium 51 mls @ 51 mls/hr 04/17/25 13:55 04/17/25 16:09 Chloride IV 04/17/25 14:54 Infused ONCE ONE Infusion Iohexol 65 ml 04/17/25 03:40 04/17/25 03:47 Iohexol 350 Mg/Ml 100 Ml Infus..Btl IV 04/17/25 03:41 65 ml ONCE ONE Administration Pantoprazole Sodium 40 mg 04/16/25 15:30 04/16/25 15:51 Pantoprazole Sodium 40 Mg/10 Ml Vial IVPUSH 04/16/25 15:31 40 mg ONCE ONE Administration Pantoprazole Sodium 40 mg 04/17/25 06:30 04/17/25 05:55 Pantoprazole Sodium 40 Mg/10 Ml Vial IVPUSH 40 mg DAILY@0630 DAMIÁN Administration Phenobarbital Sodium 264 mg 04/16/25 15:00 04/16/25 15:18 Phenobarbital Sodium 130 Mg/Ml Im Once IM 04/16/25 15:01 264 mg ONCE ONE Administration Protocol Phenobarbital Sodium 198 mg 04/16/25 18:00 04/16/25 22:07 Phenobarbital Sodium 130 Mg/Ml Vial Im Q3hx2 IM 04/16/25 21:01 198 mg Q3H DAMIÁN Administration Protocol Potassium Chloride 40 meq 04/16/25 16:39 04/16/25 18:26 Potassium Chloride Packet 20 Meq Packet PO 04/16/25 16:40 40 meq ONCE ONE Administration Medical Decision Making Medical Decision Making MDM Narrative: 64 yo male with PMH of ETOH use disorder here with signs of ETOH withdrawal, head trauma, dehydration - will obtain labs, start on gentle fluids, IV magnesium/thiamine - qtc is 526. I have also ordered phenobarb, CT scans of head and neck, CXR. I suspect he will need admission for ETOH withdrawal among other things pending work up. Differential Diagnosis Differential Diagnoses: The differential diagnosis associated with the presentation includes ETOH use disorder, lyte abnormality, dehydration, rhabdo, falls Admission/Observation Consideration of admission/observation: Escalation of care including admission/observation considered I would anticipate admission for ETOH withdrawal and anticipated lyte abnormality, serial H/H Lab Data MDM Lab Attestation statement: I reviewed the patient's lab results. H/H lower than baseline he denies GIB symptoms - will obtain INR and type and screen along with IV protonix admin 04/17/25 13:40 04/17/25 02:50 Labs: Lab Results 04/16/25 04/16/25 04/16/25 Range/Units 15:00 15:01 17:24 WBC 11.5 H (4.8-10.8) X10*3/uL RBC 2.23 L (4.60-5.80) X10*6/uL Hgb 7.2 L D (14.0-18.0) g/dl Hct 21.2 L D (42.0-52.0) % MCV 95.1 (80.0-98.0) fL MCH 32.3 (27.0-33.0) pg MCHC 34.0 (31.0-36.0) g/dl RDW 24.1 H (11.0-16.0) % Plt Count 162 D (160-400) X10*3/uL MPV 10.0 (9.4-12.4) fL Immature Gran % (Auto) 1.0 H (0.0-0.4) % Neut % (Auto) 79.9 H (45-73) % Lymph % (Auto) 10.4 L (20-40) % [place] % (Auto) 8.5 (2-11) % Eos % (Auto) 0.1 (0-4) % Baso % (Auto) 0.1 (0-2) % Lymph # (Auto) 1.2 (1.2-4.9) X10*3/uL [place] # (Auto) 1.0 (0.1-1.2) X10*3/uL Eos # (Auto) 0.0 (0.0-0.4) X10*3/uL Baso # (Auto) 0.0 (0.0-0.2) X10*3/uL Abs Immat Gran (auto) 0.12 H (0.00-0.03) X10*3/uL Absolute Neuts (auto) 9.2 H (2.0-8.3) x10*3/uL Absolute Nucleated RBC 0.020 H (0.0-0.012) X10*3/uL Nucleated RBC % (auto) 0.2 (0.0-0.2) /100WBC Hold Purple Top SEE NOTE PT 36.6 H (10.9-12.4) SEC INR 3.2 H D (0.9-1.1) Sodium 130 L 130 L (135-145) mmol/L Potassium 3.0 L 2.8 L* (3.3-5.1) mmol/L Chloride 93 L 95 L (96-108) mmol/L Carbon Dioxide 20 L 17 L (22-29) mmol/L Anion Gap 20 21 H (12-20) BUN 12 11 (9-16) mg/dL Creatinine 0.75 0.61 (0.5-1.4) mg/dL Estim Creat Clear Calc 91.8 112.8 Estimated GFR > 60 > 60 Random Glucose 128 H 127 H (60-115) mg/dL Lactic Acid 11.3 H* Cancelled (0.5-2.0) mmol/L Lactic Acid F/U @ 2Hr 12.4 H* (0.5-2.0) mmol/L Calcium 6.8 L D 6.5 L (8.4-10.2) mg/dL Magnesium 0.9 L* (1.6-2.6) mg/dL Total Bilirubin 3.2 H (0.0-1.0) mg/dL Direct Bilirubin 1.6 H (0.0-0.5) mg/dL AST 79 H (5-37) U/L ALT 10 (0-40) U/L Alkaline Phosphatase 217 H (39-117) U/L Ammonia (13-55) umol/L Total Creatine Kinase 45 (38-174) U/L Troponin I High Sens 3.2 (<3.5-35.0) ng/L C-Reactive Protein 1.19 H (< or = 0.50) mg/dL Total Protein 6.1 L (6.5-8.0) g/dL Albumin 2.3 L (3.5-5.0) g/dL Lipase 17 (8-78) U/L Urine Color Urine Appearance Urine pH (5.0-9.0) Ur Specific [place] (1.005-1.025) Urine Protein (Neg-Trace) mg/dL Urine Glucose (UA) (Negative) mg/dL Urine Ketones (Negative) mg/dL Urine Blood (Negative) Urine Nitrite (Negative) Ur Leukocyte Esterase (Negative) Urine Opiates Screen (Not Detect) Ur Buprenorphine Scrn (Not Detect) ng/mL Ur Oxycodone Screen (Not Detect) ng/mL Urine Methadone Screen (Not Detect) ng/mL Urine Fentanyl Screen (Not Detect) Ur Barbiturates Screen (Not Detect) Ur Phencyclidine Scrn (Not Detect) Ur Amphetamines Screen (Not Detect) U Benzodiazepines Scrn (Not Detect) Urine Cocaine Screen (Not Detect) U Marijuana (THC) Screen (Not Detect) Ethyl Alcohol 11 mg/dL COVID-19 (ISMAEL) Negative (Negative) COVID-19 Clin Com See Note Blood Type A Negative Antibody Screen NEGATIVE Crossmatch See Detail 04/16/25 Range/Units 17:52 WBC (4.8-10.8) X10*3/uL RBC (4.60-5.80) X10*6/uL Hgb (14.0-18.0) g/dl Hct (42.0-52.0) % MCV (80.0-98.0) fL MCH (27.0-33.0) pg MCHC (31.0-36.0) g/dl RDW (11.0-16.0) % Plt Count (160-400) X10*3/uL MPV (9.4-12.4) fL Immature Gran % (Auto) (0.0-0.4) % Neut % (Auto) (45-73) % Lymph % (Auto) (20-40) % [place] % (Auto) (2-11) % Eos % (Auto) (0-4) % Baso % (Auto) (0-2) % Lymph # (Auto) (1.2-4.9) X10*3/uL [place] # (Auto) (0.1-1.2) X10*3/uL Eos # (Auto) (0.0-0.4) X10*3/uL Baso # (Auto) (0.0-0.2) X10*3/uL Abs Immat Gran (auto) (0.00-0.03) X10*3/uL Absolute Neuts (auto) (2.0-8.3) x10*3/uL Absolute Nucleated RBC (0.0-0.012) X10*3/uL Nucleated RBC % (auto) (0.0-0.2) /100WBC Hold Purple Top PT (10.9-12.4) SEC INR (0.9-1.1) Sodium (135-145) mmol/L Potassium (3.3-5.1) mmol/L Chloride (96-108) mmol/L Carbon Dioxide (22-29) mmol/L Anion Gap (12-20) BUN (9-16) mg/dL Creatinine (0.5-1.4) mg/dL Estim Creat Clear Calc Estimated GFR Random Glucose (60-115) mg/dL Lactic Acid (0.5-2.0) mmol/L Lactic Acid F/U @ 2Hr (0.5-2.0) mmol/L Calcium (8.4-10.2) mg/dL Magnesium (1.6-2.6) mg/dL Total Bilirubin (0.0-1.0) mg/dL Direct Bilirubin (0.0-0.5) mg/dL AST (5-37) U/L ALT (0-40) U/L Alkaline Phosphatase (39-117) U/L Ammonia 71 H (13-55) umol/L Total Creatine Kinase (38-174) U/L Troponin I High Sens (<3.5-35.0) ng/L C-Reactive Protein (< or = 0.50) mg/dL Total Protein (6.5-8.0) g/dL Albumin (3.5-5.0) g/dL Lipase (8-78) U/L Urine Color Dark Yellow Urine Appearance Clear Urine pH 6.5 (5.0-9.0) Ur Specific [place] 1.010 (1.005-1.025) Urine Protein Trace (Neg-Trace) mg/dL Urine Glucose (UA) Negative (Negative) mg/dL Urine Ketones Negative (Negative) mg/dL Urine Blood Negative (Negative) Urine Nitrite Negative (Negative) Ur Leukocyte Esterase Negative (Negative) Urine Opiates Screen Not Detected (Not Detect) Ur Buprenorphine Scrn Not Detected (Not Detect) ng/mL Ur Oxycodone Screen Not Detected (Not Detect) ng/mL Urine Methadone Screen Not Detected (Not Detect) ng/mL Urine Fentanyl Screen Not Detected (Not Detect) Ur Barbiturates Screen POSITIVE H (Not Detect) Ur Phencyclidine Scrn Not Detected (Not Detect) Ur Amphetamines Screen Not Detected (Not Detect) U Benzodiazepines Scrn Not Detected (Not Detect) Urine Cocaine Screen Not Detected (Not Detect) U Marijuana (THC) Screen Not Detected (Not Detect) Ethyl Alcohol mg/dL COVID-19 (ISMAEL) (Negative) COVID-19 Clin Com Blood Type Antibody Screen Crossmatch Independent Interpretation I performed an independent interpretation of an: EKG, Plain X-Ray (normal ) and CT Scan (no trauma) Interpretation: Rate: 112 Rhythm: sinus tach [place]: normal Normal P waves. Normal LIZ. Normal QRS complex. ST T wave : nonspecific ST T wave changes, no ILSA, sig artifact noted qTC: 526 prior studies: sig artifact The study has been interpreted contemporaneously by me. . Radiology Impression Discussion of test interpretation with radiology: I have reviewed the radiologist's reading. Independent Historian Clinical information obtained from an independent historian. History obtained from or confirmed by: EMS External Record Review External record reviewed: Inpatient record and Outpatient record Social Determinants Patient?s care significantly limited by Social Determinants of Health including: Problems related to primary support group Critical Care Time Critical Care Time Critical Care Time: Yes Total Critical Care Time: 60 Attestation: Time is exclusive of separately billable procedures. Time includes: direct patient care, patient reassessment, coordination of patient care, interpretation of data (laboratory data, pulse oximetry, arterial blood gases and chest xrays), review of patient's medical records, medical consultation and documentation of patient care. IV magnesium, phenobarb protocol for ETOH withdrawal. Procedures excluded from critical care time: electrocardiography. I attest to this time spent taking care of the patient Discharge Plan Discharge Clinical Impression: Prolonged QT interval, Acute on chronic anemia, Acidosis, lactic Alcohol withdrawal Qualifiers: Complication of substance-induced condition: with unspecified complication Q ualified Code(s): F10.939 - Alcohol use, unspecified with withdrawal, unspecified Patient Disposition: Admitted As Inpatient Interventions: Admission Worksheet (ED) Last Done: 04/17/25 17:28 Discharge Date/Time: 04/17/25 18:54
[2025-04-16 15:07] LABS: MANUAL DIFF FLAG NO
[2025-04-16] MEDS: Thiamine HCL 200 MG in 0.9 % Sodium Chloride 100 ML 204 MG IV (15:12)
[2025-04-16] MEDS: Magnesium Sulfate/H2O 2 GM/50 ML PIGGYBACK IV ×2 (15:12→18:27)
[2025-04-16 15:14] LABS: Hematocrit 21.2 % (42.0-52.0); Hemoglobin 7.2 g/dl (14.0-18.0); Imm Gran Abs Auto 0.12 X10*3/uL (0.00-0.03); Imm Gran Pct Auto 1.0 % (0.0-0.4); Lymphocytes Absolute Auto 1.2 X10*3/uL (1.2-4.9); Mean Corpuscular HGB Conc 34.0 g/dl (31.0-36.0); Mean Corpuscular Hemoglobin 32.3 pg (27.0-33.0); Mean Corpuscular Volume 95.1 fL (80.0-98.0); NRBC Abs Auto 0.020 X10*3/uL (0.0-0.012); NRBC Pct Auto 0.2 /100WBC (0.0-0.2); Platelet Count 162 X10*3/uL (160-400); Red Blood Count 2.23 X10*6/uL (4.60-5.80); White Blood Count 11.5 X10*3/uL (4.8-10.8)
[2025-04-16] MEDS: PHENobarbitaL sodium 130 MG/ML IM ONCE 264 MG IM (15:18)
[2025-04-16] MEDS: Lactated Ringers 1,000 ML 999 ML IV ×2 (15:18→15:57)
[2025-04-16 15:25] LABS: COVID-19 Test Negative (Negative); IDNOW Serial# 55D5AD1C
[2025-04-16] MEDS: Lactated Ringers 500 ML 999 ML IV (15:59)
[2025-04-16 16:18] LABS: Troponin-I High Sensitivity 3.2 ng/L (<3.5-35.0)
[2025-04-16 16:37] LABS: Alanine Aminotransferase 10 U/L (0-40); Albumin Level 2.3 g/dL (3.5-5.0); Alkaline Phosphatase 217 U/L (39-117); Anion Gap 20 (12-20); Aspartate Amino Transferase 79 U/L (5-37); Blood Urea Nitrogen 12 mg/dL (9-16); Calcium 6.8 mg/dL (8.4-10.2); Carbon Dioxide 20 mmol/L (22-29); Chloride 93 mmol/L (96-108); Creatinine Clr Calc Pharmacy 91.8; Estimated Glomerular Filt Rate > 60; Lipase 17 U/L (8-78); Magnesium 0.9 mg/dL (1.6-2.6); Potassium 3.0 mmol/L (3.3-5.1); Sodium 130 mmol/L (135-145); Total Protein 6.1 g/dL (6.5-8.0)
[2025-04-16 17:05] LABS: Reflex Lactate? Lactic Acid Added
[2025-04-16 17:39] LABS: INTERNATIONAL NORM RATIO 3.2 (0.9-1.1); Prothrombin Time 36.6 SEC (10.9-12.4)
[2025-04-16 18:00] LABS: Anion Gap 21 (12-20); Blood Urea Nitrogen 11 mg/dL (9-16); Calcium 6.5 mg/dL (8.4-10.2); Carbon Dioxide 17 mmol/L (22-29); Chloride 95 mmol/L (96-108); Creatinine Clr Calc Pharmacy 112.8; Estimated Glomerular Filt Rate > 60; Potassium 2.8 mmol/L (3.3-5.1); Sodium 130 mmol/L (135-145); ~Lactic Acid-LAB USE ONLY 12.4 mmol/L (0.5-2.0)
[2025-04-16 18:03] LABS: Appearance Urine Clear; Glucose Urine UA Negative (Negative); PH 6.5 (5.0-9.0); Specific Gravity - Urine 1.010 (1.005-1.025)
[2025-04-16 18:12] LABS: Ammonia 71 umol/L (13-55)
[2025-04-16 18:20] LABS: Cannabinoid Screen Urine Not Detected (Not Detect)
[2025-04-16] MEDS: Potassium Chloride Packet 20 MEQ PACKET 40 MEQ PO (18:26)
[2025-04-16] MEDS: PHENobarbitaL sodium 130 MG/ML VIAL IM Q3Hx2 198 MG IM ×2 (18:34→22:07)
--- NOTE | 2025-04-16 19:08 | PM.IMHP ---
History of Present Illness Date of Service: 04/16/25 Attending physician on admission: Chapincito Barr Chief Complaint: alcohol use disorder w/ withdrawals 64-year-old male with past medical history significant for alcohol use disorder, who presented to the ED after fall with head trauma. Patient states that he drinks about a pint a day, and has been drinking more for the past 2 weeks. Eating less and only drinking alcohol. Patient mentions that he has been having multiple falls, today had a fall with trauma. In the ED labs showed WBC 11.5, hemoglobin 7.2, platelets are 162,000, sodium 130, potassium 2.8, chloride 95, anion gap 21, lactic acid 12.4, calcium 6.5, magnesium 0.9, AST 79, alkaline phosphatase 217, Ethyl alcohol 11, cervical spine CT with multilevel cervical spondylosis, atherosclerotic disease, acute on chronic saphenous sinus disease, head CT with no acute intracranial abnormality, no evident fracture. Of note, patient states that he has been drinking for the past 5 years, has had prior history of alcohol withdrawal seizures, has tried multiple times in quitting, longest period of time about 9 months. No obvious precipitating factor noted, we will drink 1 pt of hard liquor 100%, every day sometimes mixed with Coke. We will sometimes attend AA, and has been admitted to rehab. Review of Systems Review of Systems: Fourteen point review of systems obtained negative except as stated above [facility] Medical History Liver lesion Lesion of liver History of alcohol abuse Tobacco abuse Gout Tongue abnormality COVID-19 vaccine series completed Use of cane as ambulatory aid History of recent fall Hx of concussion Anxiety Wears dentures Primary osteoarthritis of right hip HTN (hypertension) Family History Father No problems noted. Mother Cirrhosis Surgical History History of total left hip arthroplasty Hx of colonoscopy History of fracture of leg History of arm fracture History of back surgery Social History Household Members: Unknown / Unable to assess Housing: Unknown / Unable to assess Are you a primary personal care worker to a significant other at home: No Do you presently have visiting nurse or other home services: No Alcohol intake: former Patient Tobacco Use Status: Current everyday Tobacco user Tobacco use type: Cigarette Cigarette Packs Per Day: 1.5 Cigarettes Per Day: 30.0 Years Smoked: 46 Smoked in Last 30 Days: Yes e-Cigarette/Vaping Use: Never Used Second Hand Smoke Exposure: No Use of substances other than those prescribed or required for medical reasons: No Substance Use Type: Opiates Advance Directives: No Advance Directives Information Provided: Yes service: No Current occupational status: retired Current occupation: rt handed Meds Allergies Allergy/AdvReac Type Severity Reaction Status Date / Time No Known Allergies Allergy Verified 04/16/25 14:01 Active Medications: Current Medications Acetaminophen (Acetaminophen 325 Mg Tablet) 650 mg PO Q6H PRN PRN Reason: Pain, Mild 1-3,fever,headache Calcium Carbonate (Calcium Carbonate 750 Mg Tab.Chew) 750 mg PO Q4H PRN PRN Reason: Heartburn Folic Acid (Folic Acid 1 Mg Tablet) 1 mg PO DAILY [facility] Stop: 04/20/25 08:59 Hydroxyzine HCl (Hydroxyzine Hcl 25 Mg Tablet) 25 mg PO Q6H PRN PRN Reason: Anxiety Potassium Chloride (Potassium Chloride/H20) 10 meq in 100 mls @ 100 mls/hr IV Q1H [facility] Stop: 04/16/25 22:59 Sodium Chloride (Ns) 1,000 mls @ 999 mls/hr IV .Q1H1M [facility] Stop: 04/16/25 19:15 Last Admin: 04/16/25 18:30 Dose: 999 mls/hr Lactated Ringer's (Lr) 1,000 mls @ 100 mls/hr IVCONT .Q10H [facility] Thiamine HCl 100 mg/ Sodium (Chloride) 101 mls @ 202 mls/hr IV BID [facility] Stop: 04/19/25 20:59 Magnesium Hydroxide (Milk Of Magnesia 30 Ml Oral.Susp) 30 ml PO DAILY PRN PRN Reason: Constipation Melatonin (Melatonin 3 Mg Tablet) 6 mg PO BEDTIME PRN PRN Reason: Insomnia Multivitamins/Vitamin C (Multivitamin Tablet) 1 tab PO DAILY [facility] Stop: 04/20/25 08:59 Pantoprazole Sodium (Pantoprazole Sodium 40 Mg/10 Ml Vial) 40 mg IVPUSH DAILY@0630 [facility] Pharmacy Consult (Consult Rx Etoh Phenob Im/Po) 1 each MISCELLANE ONCE PRN; Protocol PRN Reason: Consult order Phenobarbital (Phenobarbital 15 Mg Tablet) 45 mg PO BID DAMI[facility]N; Protocol Stop: 04/18/25 21:01 Phenobarbital (Phenobarbital 15 Mg Tablet) 15 mg PO BID DAMI[facility]N; Protocol Stop: 04/20/25 21:01 Phenobarbital (Phenobarbital 15 Mg Tablet) 15 mg PO DAILY [facility]; Protocol Stop: 04/22/25 09:01 Phenobarbital Sodium (Phenobarbital Sodium 130 Mg/Ml Vial Im Q3hx2) 198 mg IM Q3H [facility]; Protocol Stop: 04/16/25 21:01 Last Admin: 04/16/25 18:34 Dose: 198 mg Sodium Chloride (0.9 % Sodium Chloride Flush 3 Ml Syringe) 3 ml IVFLUSH QSHIFT [facility] Physical Exam Vital Signs and Narrative: Vital Signs: Last Vital Signs Temp 98.2 F 04/16/25 18:53 Pulse 104 H 04/16/25 18:53 Resp 20 04/16/25 18:53 BP 84/48 L 04/16/25 18:53 Pulse Ox 93 04/16/25 18:53 O2 Del Method Room Air 04/16/25 18:53 BMI result Body Mass Index 23.3 General: AxOx2, No acute distress Head: right frontal abrasion ENT: Moist mucous membranes Neck: supple CVS; RRR, S1 S2 normal Lungs: Clear bilateral breath sounds, no wheezes or crackles Abd: Soft non tender, non distended Ext: No edema and no calf tenderness MSK: moving all 4 limbs Skin: No cyanosis or edema Psych: Cooperative with exam Neurology: mild tremors Results Labs 04/16/25 15:01 04/16/25 17:24 Labs: Laboratory Results - last 24 hr 04/16/25 04/16/25 04/16/25 15:00 15:01 17:24 MCV 95.1 MCH 32.3 MCHC 34.0 RDW 24.1 H Plt Count 162 D MPV 10.0 Immature Gran % (Auto) 1.0 H Neut % (Auto) 79.9 H Lymph % (Auto) 10.4 L [place] % (Auto) 8.5 Eos % (Auto) 0.1 Baso % (Auto) 0.1 Lymph # (Auto) 1.2 [place] # (Auto) 1.0 Eos # (Auto) 0.0 Baso # (Auto) 0.0 Abs Immat Gran (auto) 0.12 H Absolute Neuts (auto) 9.2 H Absolute Nucleated RBC 0.020 H Nucleated RBC % (auto) 0.2 Hold Purple Top SEE NOTE PT 36.6 H INR 3.2 H D Anion Gap 20 21 H Estim Creat Clear Calc 91.8 112.8 Estimated GFR > 60 > 60 Random Glucose 128 H 127 H Lactic Acid 11.3 H* Cancelled Lactic Acid F/U @ 2Hr 12.4 H* Calcium 6.8 L D 6.5 L Magnesium 0.9 L* Total Bilirubin 3.2 H Direct Bilirubin 1.6 H AST 79 H ALT 10 Alkaline Phosphatase 217 H Ammonia Total Creatine Kinase 45 Troponin I High Sens 3.2 C-Reactive Protein 1.19 H Total Protein 6.1 L Albumin 2.3 L Lipase 17 Urine Color Urine Appearance Urine pH Ur Specific [place] Urine Protein Urine Glucose (UA) Urine Ketones Urine Blood Urine Nitrite Ur Leukocyte Esterase Urine Opiates Screen Ur Buprenorphine Scrn Ur Oxycodone Screen Urine Methadone Screen Urine Fentanyl Screen Ur Barbiturates Screen Ur Phencyclidine Scrn Ur Amphetamines Screen U Benzodiazepines Scrn Urine Cocaine Screen U Marijuana (THC) Screen Ethyl Alcohol 11 COVID-19 (ISMAEL) Negative COVID-19 Clin Com See Note Blood Type A Negative Antibody Screen NEGATIVE 04/16/25 17:52 MCV MCH MCHC RDW Plt Count MPV Immature Gran % (Auto) Neut % (Auto) Lymph % (Auto) [place] % (Auto) Eos % (Auto) Baso % (Auto) Lymph # (Auto) [place] # (Auto) Eos # (Auto) Baso # (Auto) Abs Immat Gran (auto) Absolute Neuts (auto) Absolute Nucleated RBC Nucleated RBC % (auto) Hold Purple Top PT INR Anion Gap Estim Creat Clear Calc Estimated GFR Random Glucose Lactic Acid Lactic Acid F/U @ 2Hr Calcium Magnesium Total Bilirubin Direct Bilirubin AST ALT Alkaline Phosphatase Ammonia 71 H Total Creatine Kinase Troponin I High Sens C-Reactive Protein Total Protein Albumin Lipase Urine Color Dark Yellow Urine Appearance Clear Urine pH 6.5 Ur Specific [place] 1.010 Urine Protein Trace Urine Glucose (UA) Negative Urine Ketones Negative Urine Blood Negative Urine Nitrite Negative Ur Leukocyte Esterase Negative Urine Opiates Screen Not Detected Ur Buprenorphine Scrn Not Detected Ur Oxycodone Screen Not Detected Urine Methadone Screen Not Detected Urine Fentanyl Screen Not Detected Ur Barbiturates Screen POSITIVE H Ur Phencyclidine Scrn Not Detected Ur Amphetamines Screen Not Detected U Benzodiazepines Scrn Not Detected Urine Cocaine Screen Not Detected U Marijuana (THC) Screen Not Detected Ethyl Alcohol COVID-19 (ISMAEL) COVID-19 Clin Com Blood Type Antibody Screen Imaging Radiologist's Impressions: Impressions Chest X-Ray 04/16/25 15:07 IMPRESSION: No acute cardiopulmonary findings Electronically signed by: Neto Monterroso MD 04/16/2025 03:24 PM EDT RP Cervical Spine CT 04/16/25 15:17 IMPRESSION: Multilevel cervical spondylosis without acute fracture or trauma-related listhesis. Atherosclerosis disease. Acute on chronic saphenous sinus disease. Fleischner guidelines were followed. Electronically signed by: Marcelino Lemus MD 04/16/2025 03:54 PM EDT RP Head CT 04/16/25 15:17 IMPRESSION: 1. No acute intracranial abnormality. No fracture evident. 2. Moderate right maxillary and sphenoid paranasal sinus disease. Electronically signed by: Freddy Barahona MD 04/16/2025 03:50 PM EDT RP Assessment and Plan (1) Alcohol withdrawal: Qualifiers: Complication of substance-induced condition: with unspecified complication Qualified Code(s): F10.939 - Alcohol use, unspecified with withdrawal, unspecified Status: Acute (2) Acidosis, lactic: Status: Acute (3) Acute on chronic anemia: Status: Acute Plan Assessment: 64-year-old male who presented to the hospital for possible witnessed seizure secondary to alcohol withdrawals, with last drink about 2 days ago. Alcohol use disorder, chronic Suspected seizure secondary to alcohol withdrawal Ambulatory dysfunction -elevated ETOH -imaging reviewed with no acute intracranial abnormalities -we will continue with phenobarbital protocol, monitor for any seizures -addiction medicine consulted -we will give comfort medications -counseling given on discontinue alcohol use, patient resonated understanding, is willing to try -P.T./OT ordered Possible sepsis, status post IV fluids, could be reactive in the setting of seizure and trauma, we will closely monitor Lactic acidosis -continue with IV fluids, monitor for any signs of fever, shortness of the breath Anemia, suspected chronic disease -hemoglobin 7.2, we will transfuse for hemoglobin less than 7, monitor signs of bleeding, chest pain, shortness of breath Hyponatremia, suspect secondary to beer potomania Hypokalemia, potassium 2.8 Hypomagnesemia -status post replacements given, we will continue with IV fluids LR Hepatitis, likely secondary to alcohol use -continue to monitor but this time FEN: LR, replete as needed, cardiac GI PPX: Protonix DVT PPX: SCDs ordered, we will hold off right now chemical anticoagulation in the setting of elevated INR Code status: Full code Disposition: All questions and concerns with the patient were answered to satisfaction. All pertinent clinical documents, images and labs were reviewed. DISCLAIMER: This document was created using voice recognition software. Any mistakes in the prescription are unintentional. An attempt was made to focus for accuracy, but to expedite availability, some errors may persist. Please contact with any need for correction or further clarification Quality Stroke Does the patient have a stroke diagnosis?: No VTE Prior VTE?: No VTE Risk Level:: Medical - moderate - high VTE Device Contraindication: N/A - Device Ordered VTE Drug Contraindication: N/A - Med Ordered
--- NOTE | 2025-04-16 19:18 | PHA.MEDREC ---
Addendum entered by Treva Jolley RPh 04/16/25 19:29: REVIEWED BY PHARMACIST Original Note: Pharmacy Consult ? Medication Reconciliation Pharmacy has completed the medication reconciliation. Spoke with pt and he confirmed he is not taking anything at this time for medications (Prescription or OTC).
[2025-04-16 19:29] LABS: Reflex Lactate? 2 Y
[2025-04-16] MEDS: Lactated Ringers 1,000 ML 100 ML IVCONT (19:35)
--- NOTE | 2025-04-16 20:29 | MHC.EDTECH ---
patient was repositioned and changed
[2025-04-16 20:38] LABS: Anion Gap 15 (12-20); Blood Urea Nitrogen 11 mg/dL (9-16); Carbon Dioxide 20 mmol/L (22-29); Chloride 97 mmol/L (96-108); Creatinine Clr Calc Pharmacy 107.5; Estimated Glomerular Filt Rate > 60; Potassium 3.1 mmol/L (3.3-5.1); Sodium 129 mmol/L (135-145)
[2025-04-16] MEDS: Potassium Chloride/H20 10 MEQ/100 ML PIGGYBACK 100 MEQ IV ×3 (20:39→23:20)
[2025-04-16 20:43] LABS: ~Lactic Acid-LAB USE ONLY 9.0 mmol/L (0.5-2.0)
[2025-04-16 20:44] LABS: Calcium 6.4 mg/dL (8.4-10.2)
[2025-04-16 21:54] LABS: Magnesium 1.8 mg/dL (1.6-2.6)
--- NOTE | 2025-04-16 22:17 | HO.NURTONUR ---
Pt came into ED approx 1500 10/20 c/o decr. po intake x pas two weeks secondary to etoh abuse.Pt admits to drinking 1 pint of [place]/day for 30 years. Pt also states he has been having mult falls and presents w/ an old abrasion R forehead. When asked if the pt may have been having etoh withdrawal sz's, pt states oh yeah . Pt had elevated lactic secondary to seizures and was treated w/ mult liters of fluid. Pt was also repleted w/ Mg, and K. Pt is A&O x 4, but is forgetful and found to be incontinent of stool. BP's have been soft at times but this is attributed to pt being so volume depleted. Pt is on maintenance fluids and bp is responsive.
[2025-04-17] VITALS (10 sets, daily range): BP systolic 91–122; BP diastolic 49–90; PULSE 86–111; RESP 16–23; TEMP 36.6–37.1; O2SAT 88–98; BMI 28.3
[2025-04-17] MEDS: Potassium Chloride/H20 10 MEQ/100 ML PIGGYBACK 100 MEQ IV (00:43)
--- NOTE | 2025-04-17 01:37 | PC.NURSE ---
pt coughing de-sating into the 70's pt , pt placed on 5 liter of oxygen, provider notified, bronco protocol placed, respiratory notified.
[2025-04-17] MEDS: 0.9 % Sodium Chloride Flush 3 ML SYRINGE IVFLUSH ×3 (02:19→21:44)
--- NOTE | 2025-04-17 02:24 | PC.NURSE ---
Medicated per mar.
--- NOTE | 2025-04-17 02:30 | PC.NURSE ---
male purewick in place
[2025-04-17 02:54] LABS: MANUAL DIFF FLAG NO
[2025-04-17 02:56] LABS: Imm Gran Abs Auto 0.06 X10*3/uL (0.00-0.03); Imm Gran Pct Auto 0.5 % (0.0-0.4); Lymphocytes Absolute Auto 2.4 X10*3/uL (1.2-4.9); Mean Corpuscular HGB Conc 33.9 g/dl (31.0-36.0); Mean Corpuscular Hemoglobin 32.0 pg (27.0-33.0); Mean Corpuscular Volume 94.5 fL (80.0-98.0); NRBC Abs Auto 0.020 X10*3/uL (0.0-0.012); NRBC Pct Auto 0.2 /100WBC (0.0-0.2); Platelet Count 158 X10*3/uL (160-400); Red Blood Count 2.00 X10*6/uL (4.60-5.80); White Blood Count 11.8 X10*3/uL (4.8-10.8)
[2025-04-17 02:59] LABS: Hematocrit 18.9 % (42.0-52.0); Hemoglobin 6.4 g/dl (14.0-18.0)
--- NOTE | 2025-04-17 03:03 | PM.EVENT ---
Event Note Date of Service: 04/17/25 Event Note: pt started de-satting in ED down to the 70s started on 5L NC with improvement. CXR ordered and showed bronchiolitis, likely due to aspiration pneumonia, started unasyn. due to tachycardia, hypoxia and elevated d dimer CTA chest ordered to r/o PE. labs with anemia, H+H 6.4/18.9. ordered 2U PRBC, consent discussed and signed by pt. ordered iron panel, B12, folate, OBSx1. repeat BMP and procalcitonin also ordered. IVF stopped due to concern for fluid overload and pt received 3L total so far. no LE edema. frothy white sputum production. no hx of CHF but no recent echo. pt currently satting in the 90s and coughing has calmed down. aspriation precautions. lactic acid now 5.4, improved from previous. no likely due to sepsis, likely from etoh and seizure. no further fluids given. Time Spent With Patient Time: Total time managing care of this patient today ____ minutes.
--- NOTE | 2025-04-17 03:04 | PC.NURSE ---
critical h/h report to Andra Cody,
[2025-04-17 03:06] LABS: D Dimer High Sensitivity 454 NG/ML
--- NOTE | 2025-04-17 03:08 | PC.NURSE ---
pt repositioned for comfort, awaiting to be seen by provider for blood consent.
[2025-04-17 03:17] LABS: Anion Gap 15 (12-20); Blood Urea Nitrogen 12 mg/dL (9-16); Calcium 6.6 mg/dL (8.4-10.2); Carbon Dioxide 17 mmol/L (22-29); Chloride 101 mmol/L (96-108); Creatinine Clr Calc Pharmacy 111.0; Estimated Glomerular Filt Rate > 60; Iron 135 mcg/dL (45-160); Percent Iron Saturation 84 % (15-50); Potassium 3.3 mmol/L (3.3-5.1); Sodium 130 mmol/L (135-145); Total Iron Binding Capacity 160 mcg/dL (228-428); Unsaturated Iron Binding < 25 ug/dL
--- NOTE | 2025-04-17 03:20 | PC.NURSE ---
critical lactic report to provider.
--- NOTE | 2025-04-17 03:30 | PC.NURSE ---
pt taken to CT Scan.
--- NOTE | 2025-04-17 03:40 | PC.NURSE ---
blood reading, awaiting for provider consent, also pt off the floor in CT.
[2025-04-17] MEDS: iohexoL 350 MG/ML 100 ML INFUS..BTL 65 ML IV (03:47)
[2025-04-17 03:51] LABS: Procalcitonin 0.28 ng/mL
--- NOTE | 2025-04-17 04:18 | PC.NURSE ---
blood transfusion started, pt incontinent of urine and stool,complete bed change and chet care
[2025-04-17 04:30] LABS: Alanine Aminotransferase 9 U/L (0-40); Albumin Level 2.1 g/dL (3.5-5.0); Alkaline Phosphatase 198 U/L (39-117); Aspartate Amino Transferase 78 U/L (5-37); Magnesium 1.5 mg/dL (1.6-2.6); Total Protein 5.8 g/dL (6.5-8.0)
[2025-04-17 04:53] LABS: Reflex Lactate? Lactic Acid Added
[2025-04-17 05:45] LABS: ~Lactic Acid-LAB USE ONLY 4.3 mmol/L (0.5-2.0)
[2025-04-17 05:59] LABS: Folate 3.4 ng/mL (> or = 4.0); Vitamin B12 1200 pg/mL (200-900)
--- NOTE | 2025-04-17 05:59 | PC.NURSE ---
medicated per mar, new order placed by provider, O2 taken off pt stating 92 room air. per Benson Silverman O2 can be between 88-96
[2025-04-17 06:25] LABS: Venous Blood Gas Refer to POC result
[2025-04-17 06:26] LABS: VBG HCO3 22 mmol/L (22-26)
[2025-04-17 07:07] LABS: Reflex Lactate? 2 Y
[2025-04-17 08:29] LABS: ~Lactic Acid-LAB USE ONLY 2.5 mmol/L (0.5-2.0)
[2025-04-17] MEDS: Thiamine HCL 100 MG in 0.9 % Sodium Chloride 100 ML 202 MG IV ×2 (09:31→21:44)
--- NOTE | 2025-04-17 10:38 | MHC.CM.PN ---
IMM 04/17/25, Pt. lives with a roommate, he does not use home healths services or DME. Pt. said that his PCP is Dr. Whittaker, a male and he has not been there for a long time, in [place]. EMR shows that his PCP is: Nisha Schwartz MD. CM placed call to this MD, could not get thru to confirm. DCP: likely home, self care, CM to follow for DC needs.
[2025-04-17 11:12] LABS: OBS Int Ctl Valid YES; OBS1 NEGATIVE (NEGATIVE)
[2025-04-17 13:47] LABS: Hematocrit 25.9 % (42.0-52.0); Hemoglobin 9.2 g/dl (14.0-18.0)
[2025-04-17] MEDS: metroNIDAZOLE/NS 500 MG/100 ML PIGGYBACK 100 MG IV ×2 (15:33→22:21)
[2025-04-17] MEDS: Lactated Ringers 1,000 ML 100 ML IVCONT (15:39)
--- NOTE | 2025-04-17 16:59 | P.PNIM_ITS ---
Subjective Subjective Date of Service: 04/17/25 Interval History: Patient seen and examined at bedside this morning, patient overnight with bleeding, anemia with hemoglobin of 6.4, INR 2.2, sodium 130, potassium 3.3, lactic acid 5.4, magnesium 1.5, requiring blood transfusion. At this time patient encephalopathic. Physical Exam 2 Exam: Exam: General: Somnolent Ox1, with blood transfusion in place Head: right frontal abrasion ENT: Moist mucous membranes Neck: supple CVS; RRR, S1 S2 normal Lungs: Clear bilateral breath sounds, no wheezes or crackles Abd: Soft non tender, non distended Ext: No edema and no calf tenderness MSK: moving all 4 limbs Skin: No cyanosis or edema Psych: Cooperative with exam Neurology: UTO Vital Signs: Vital Signs: Last Vital Signs Temp 97.8 F 04/17/25 14:16 Pulse 105 H 04/17/25 14:16 Resp 20 04/17/25 14:16 BP 98/62 04/17/25 14:16 Pulse Ox 97 04/17/25 14:16 O2 Del Method Room Air 04/17/25 14:16 BMI result Body Mass Index 23.3 Objective Data Active Medications Acetaminophen (Acetaminophen 325 Mg Tablet) 650 mg PO Q6H PRN PRN Reason: Pain, Mild 1-3,fever,headache Calcium Carbonate (Calcium Carbonate 750 Mg Tab.Chew) 750 mg PO Q4H PRN PRN Reason: Heartburn Ceftriaxone Sodium (Ceftriaxone Sodium 1 Gm Vial) 1 gm IVPUSH Q24H [facility] Last Admin: 04/17/25 16:33 Dose: 1 gm Documented By: SABRINA Folic Acid (Folic Acid 1 Mg Tablet) 1 mg PO DAILY DAMIÁN Stop: 04/20/25 08:59 Last Admin: 04/17/25 08:48 Dose: Not Given Documented By: SABRINA Non-Admin Reason: NPO Hydroxyzine HCl (Hydroxyzine Hcl 25 Mg Tablet) 25 mg PO Q6H PRN PRN Reason: Anxiety Thiamine HCl 100 mg/ Sodium (Chloride) 101 mls @ 202 mls/hr IV BID DAMIÁN Stop: 04/19/25 20:59 Last Infusion: 04/17/25 10:19 Dose: Infused Documented By: SABRINA Octreotide Acetate 500 mcg/ (Sodium Chloride) 501 mls @ 50.1 mls/hr IVCONT .Q10H [facility] Last Admin: 04/17/25 15:00 Dose: 50 mcg/hr, 50.1 mls/hr Documented By: SABRINA Metronidazole (Flagyl) 500 mg in 100 mls @ 100 mls/hr IV Q8H [facility] Last Admin: 04/17/25 15:33 Dose: 100 mls/hr Documented By: SABRINA Lactated Ringer's (Lr) 1,000 mls @ 100 mls/hr IVCONT .Q10H [facility] Last Admin: 04/17/25 15:39 Dose: 100 mls/hr Documented By: SABRINA Magnesium Hydroxide (Milk Of Magnesia 30 Ml Oral.Susp) 30 ml PO DAILY PRN PRN Reason: Constipation Magnesium Hydroxide (Milk Of Magnesia 30 Ml Oral.Susp) 30 ml PO DAILY PRN PRN Reason: Constipation Melatonin (Melatonin 3 Mg Tablet) 6 mg PO BEDTIME PRN PRN Reason: Insomnia Multivitamins/Vitamin C (Multivitamin Tablet) 1 tab PO DAILY [facility] Stop: 04/20/25 08:59 Last Admin: 04/17/25 08:48 Dose: Not Given Documented By: SABRINA Non-Admin Reason: NPO Pantoprazole Sodium (Pantoprazole Sodium 40 Mg/10 Ml Vial) 40 mg IVPUSH DAILY@0630 [facility] Last Admin: 04/17/25 05:55 Dose: 40 mg Documented By: ROMAIN Pharmacy Consult (Consult Rx Etoh Phenob Im/Po) 1 each MISCELLANE ONCE PRN; Protocol PRN Reason: Consult order Phenobarbital (Phenobarbital 15 Mg Tablet) 45 mg PO BID [facility]; Protocol Stop: 04/18/25 21:01 Last Admin: 04/17/25 10:18 Dose: Not Given Documented By: SABRINA Non-Admin Reason: Physician Approved Comments: Dr. Benitez in room states he should be sober now Phenobarbital (Phenobarbital 15 Mg Tablet) 15 mg PO BID [facility]; Protocol Stop: 04/20/25 21:01 Phenobarbital (Phenobarbital 15 Mg Tablet) 15 mg PO DAILY [facility]; Protocol Stop: 04/22/25 09:01 Sodium Chloride (0.9 % Sodium Chloride Flush 3 Ml Syringe) 3 ml IVFLUSH QSHIFT [facility] Last Admin: 04/17/25 16:14 Dose: Not Given Documented By: SABRINA Non-Admin Reason: IV Running Sodium Chloride (0.9 % Sodium Chloride Flush 3 Ml Syringe) 3 ml IVFLUSH QSHIFT [facility] Last Admin: 04/17/25 16:14 Dose: Not Given Documented By: SABRINA Non-Admin Reason: IV Running Labs 04/17/25 13:40 04/17/25 02:50 Labs: Laboratory Results - last 24 hr 04/16/25 04/16/25 04/16/25 17:24 17:52 19:58 MCV MCH MCHC RDW Plt Count MPV Immature Gran % (Auto) Neut % (Auto) Lymph % (Auto) [place] % (Auto) Eos % (Auto) Baso % (Auto) Lymph # (Auto) [place] # (Auto) Eos # (Auto) Baso # (Auto) Abs Immat Gran (auto) Absolute Neuts (auto) Absolute Nucleated RBC Nucleated RBC % (auto) Hold Purple Top PT 36.6 H INR 3.2 H D D-Dimer High Sensitivty VBG pH VBG pCO2 VBG pO2 VBG HCO3 VBG O2 Saturation VBG Base Excess Anion Gap 21 H 15 Estim Creat Clear Calc 112.8 107.5 Estimated GFR > 60 > 60 Random Glucose 127 H 206 H Lactic Acid Cancelled Lactic Acid F/U @ 2Hr 12.4 H* Lactic Acid F/U @ 4Hr 9.0 H* Calcium 6.5 L 6.4 L Magnesium 1.8 Iron TIBC % Saturation Unsat Iron Binding Total Bilirubin AST ALT Alkaline Phosphatase Ammonia 71 H Total Protein Albumin Vitamin B12 Folate Procalcitonin Urine Color Dark Yellow Urine Appearance Clear Urine pH 6.5 Ur Specific [place] 1.010 Urine Protein Trace Urine Glucose (UA) Negative Urine Ketones Negative Urine Blood Negative Urine Nitrite Negative Ur Leukocyte Esterase Negative Stool Occult Blood Urine Opiates Screen Not Detected Ur Buprenorphine Scrn Not Detected Ur Oxycodone Screen Not Detected Urine Methadone Screen Not Detected Urine Fentanyl Screen Not Detected Ur Barbiturates Screen POSITIVE H Ur Phencyclidine Scrn Not Detected Ur Amphetamines Screen Not Detected U Benzodiazepines Scrn Not Detected Urine Cocaine Screen Not Detected U Marijuana (THC) Screen Not Detected Blood Type A Negative Antibody Screen NEGATIVE Crossmatch See Detail 04/17/25 04/17/25 04/17/25 02:50 04:27 05:05 MCV 94.5 MCH 32.0 MCHC 33.9 RDW 24.2 H Plt Count 158 L MPV 9.7 Immature Gran % (Auto) 0.5 H Neut % (Auto) 70.5 Lymph % (Auto) 20.3 [place] % (Auto) 7.2 Eos % (Auto) 1.4 Baso % (Auto) 0.1 Lymph # (Auto) 2.4 [place] # (Auto) 0.9 Eos # (Auto) 0.2 Baso # (Auto) 0.0 Abs Immat Gran (auto) 0.06 H Absolute Neuts (auto) 8.3 Absolute Nucleated RBC 0.020 H Nucleated RBC % (auto) 0.2 Hold Purple Top PT INR D-Dimer High Sensitivty 454 VBG pH VBG pCO2 VBG pO2 VBG HCO3 VBG O2 Saturation VBG Base Excess Anion Gap 15 Estim Creat Clear Calc 111.0 Estimated GFR > 60 Random Glucose 101 Lactic Acid 5.4 H* Lactic Acid F/U @ 2Hr 4.3 H* Lactic Acid F/U @ 4Hr Calcium 6.6 L Magnesium 1.5 L Iron 135 TIBC 160 L % Saturation 84 H Unsat Iron Binding < 25 Total Bilirubin 2.3 H AST 78 H ALT 9 Alkaline Phosphatase 198 H Ammonia Total Protein 5.8 L Albumin 2.1 L Vitamin B12 1200 H Folate 3.4 L Procalcitonin 0.28 Urine Color Urine Appearance Urine pH Ur Specific [place] Urine Protein Urine Glucose (UA) Urine Ketones Urine Blood Urine Nitrite Ur Leukocyte Esterase Stool Occult Blood Urine Opiates Screen Ur Buprenorphine Scrn Ur Oxycodone Screen Urine Methadone Screen Urine Fentanyl Screen Ur Barbiturates Screen Ur Phencyclidine Scrn Ur Amphetamines Screen U Benzodiazepines Scrn Urine Cocaine Screen U Marijuana (THC) Screen Blood Type Antibody Screen Crossmatch 04/17/25 04/17/25 04/17/25 06:16 07:59 11:04 MCV MCH MCHC RDW Plt Count MPV Immature Gran % (Auto) Neut % (Auto) Lymph % (Auto) [place] % (Auto) Eos % (Auto) Baso % (Auto) Lymph # (Auto) [place] # (Auto) Eos # (Auto) Baso # (Auto) Abs Immat Gran (auto) Absolute Neuts (auto) Absolute Nucleated RBC Nucleated RBC % (auto) Hold Purple Top SEE NOTE PT INR D-Dimer High Sensitivty VBG pH 7.50 H VBG pCO2 28 VBG pO2 178 VBG HCO3 22 VBG O2 Saturation TNP VBG Base Excess -0.5 Anion Gap Estim Creat Clear Calc Estimated GFR Random Glucose Lactic Acid Lactic Acid F/U @ 2Hr Lactic Acid F/U @ 4Hr 2.5 H* Calcium Magnesium Iron TIBC % Saturation Unsat Iron Binding Total Bilirubin AST ALT Alkaline Phosphatase Ammonia Total Protein Albumin Vitamin B12 Folate Procalcitonin Urine Color Urine Appearance Urine pH Ur Specific [place] Urine Protein Urine Glucose (UA) Urine Ketones Urine Blood Urine Nitrite Ur Leukocyte Esterase Stool Occult Blood NEGATIVE Urine Opiates Screen Ur Buprenorphine Scrn Ur Oxycodone Screen Urine Methadone Screen Urine Fentanyl Screen Ur Barbiturates Screen Ur Phencyclidine Scrn Ur Amphetamines Screen U Benzodiazepines Scrn Urine Cocaine Screen U Marijuana (THC) Screen Blood Type Antibody Screen Crossmatch Assessment and Plan (1) Alcohol withdrawal: Status: Acute (2) End stage liver disease: Status: Acute (3) Upper GI bleed: Status: Acute (4) Acute and chronic respiratory failure with hypoxia: Status: Acute (5) Pneumonia: Status: Acute Plan Assessment: 64-year-old male who presented to the hospital for possible witnessed seizure secondary to alcohol withdrawals, with last drink aprox 04/12. Patient overnight with worsening hypoxia requiring oxygen, labs showed hemoglobin of 6.4, 2 units of packed red blood cells ordered. Acute hypoxic respiratory failure, requiring supplemental oxygen, could be 2/2 anemia as well as PNA Suspect upper GI bleed in setting of cirrhosis Acute on chronic anemia with hemoglobin of 6.4 requiring 2 units of packed red blood cells Suspect end-stage liver disease secondary to alcohol use child [place] class C, given patient's elevated bilirubin levels, elevated INR and low albumin levels. -2 large bore 18 gauge needles ordered -chest CTA with no evidence of pulmonary embolism, region of ground-glass opacity left upper lobe suggestive of pneumonia, mild emphysema, with cirrhosis -we will initiate ceftriaxone and flagyl for PNA as well as prophylactic in the setting of suspected GI bleed -Initiate octreotide -continue with supplemental oxygen for SpO2 greater than 92% -GI consulted, with plans on possible EGD tomorrow, NPO at midnight -To consider consulting Nephrology if kidney function worsens, at this time patient with low bp, suspect 2/2 to GI bleed, however if persists with hypotension, to consider possible pressors or terlipressin +albumin. -Will closely monitor labs -H&H q8h, we will transfuse for hemoglobin less than 7, await a repeat lab -given elevated INR, vitamin K 10 mg given once -continue Protonix 40 mg b.i.d. IV, given high suspicion for esophageal varices as well as upper GI bleeding setting of cirrhosis Alcohol use disorder, chronic Suspected seizure secondary to alcohol withdrawal Ambulatory dysfunction -elevated ETOH -imaging reviewed with no acute intracranial abnormalities -we will continue with phenobarbital protocol, monitor for any seizures -addiction medicine to follow -we will give comfort medications Possible sepsis, status post IV fluids, could be reactive in the setting of seizure and trauma, we will closely monitor Lactic acidosis -restart with IV fluids, monitor for any signs of fever, shortness of the breath Hyponatremia, suspect secondary to beer potomania Hypokalemia, potassium 2.8 Hypomagnesemia -status post replacements given, we will continue with IV fluids LR FEN: LR, replete as needed, cardiac GI PPX: Protonix 40mg BID DVT PPX: SCDs ordered, we will hold off right now chemical anticoagulation in the setting of elevated INR Code status: Full code Disposition: All questions and concerns with the patient were answered to satisfaction. All pertinent clinical documents, images and labs were reviewed. DISCLAIMER: This document was created using voice recognition software. Any mistakes in the prescription are unintentional. An attempt was made to focus for accuracy, but to expedite availability, some errors may persist. Please contact with any need for correction or further clarification Quality Stroke Does the patient have a stroke diagnosis?: No VTE Prior VTE?: No VTE Risk Level:: Medical - moderate - high VTE Device Contraindication: N/A - Device Ordered VTE Drug Contraindication: N/A - Med Ordered
--- NOTE | 2025-04-17 17:12 | MHC.SL.SWA ---
Speech Pathologist Impression: Risk of Aspiration Due to: Mild oral pharyngeal dysphagia Dysphasia Diet Status: Liquid Consistency and Strategies for Safe Swallow: Liquid Intake Recommendation: [place] Thick Liquid Intake Strategies: Solid Food Consistency: Dietary Recommendations: Pureed (NDD1) Additional Modifications to Solid Foods: Oral Medication Intake: Whole with Puree Please contact the pharmacy regarding appropriate crushable or liquid drug formulations that are available whenever modified delivery is recommended. Compensatory Strategies and Precautions to be Taken for Safe Swallow: No straw, liquids by cup sip only. Patient requires supervision at meals, assistance with opening items. Supervision While Eating and Drinking for Safe Swallow: Direct Supervision (1:1) Foods to Avoid: Tough, difficult to chew solids, dry crunchy textures. Swallowing Recommended Treatments: Recommendation for Speech: Inpatient Speech Therapy Comment: Patient presents with mild oral and pharyngeal dysphagia, secondary to absent dentition and mild delay of swallow (absent swallow trigger). Patient requested today a pureed diet, and tolerated nectar thick liquids better than thin. Patient is periodically coughing, it does not appear to be associated with swallow. Recommend UPGRADE diet to PUREE (NDD1) with NECTAR THICK liquids, pills whole with puree. ?vocal pathology due to harsh/hoarse vocal quality, frequent coughing and throat clearing. MD/RD notified by secure text, RN in person. FAMILY COACH will continue to follow. Frequency/Duration: Date Range for Service Req: Timeline to reassess: Research Physicist Clinican/Clinical Fellow: No Supervisory Statement: I have reviewed and agree with the student/clinical fellow's documentation: N/A Speech Language Pathologist: Nisha Flores M.A., [facility]-FAMILY COACH
[2025-04-18] VITALS (14 sets, daily range): BP systolic 84–142; BP diastolic 39–80; PULSE 79–106; RESP 16–22; TEMP 36.1–37; O2SAT 92–100
[2025-04-18] MEDS: Lactated Ringers 1,000 ML 100 ML IVCONT ×3 (00:10→21:27)
[2025-04-18] MEDS: metroNIDAZOLE/NS 500 MG/100 ML PIGGYBACK 100 MG IV ×3 (06:05→21:26)
[2025-04-18 07:22] LABS: Hematocrit 22.6 % (42.0-52.0); Hemoglobin 8.0 g/dl (14.0-18.0)
--- NOTE | 2025-04-18 07:48 | P.CNGI_ITS ---
History of Present Illness Data of Consult Service Date: 04/18/25 Requesting physician: Chapincito Barr Primary Care Provider: Nisha Schwartz MD HPI Reason for consult: GIB 62-year-old male with history of alcohol use disorder who is here for abdominal pain, decreased appetite and multiple falls. Gastroenterology has been consulted for severe anemia. Patient was seen at bedside, and reports mild abdominal discomfort, but no nausea, vomiting, change in bowel habits. He does endorse constipation. Does not report any black stools or blood in the bowel movement. Last drink of alcohol was on the day of admission. Reports 1 drink of hard liquor every day. He was noted to be a bit tachycardic, but otherwise has stable vitals. Labs with initial white count and hemoglobin of 7.2, which decreased further to 6.4 yesterday. INR of 3.2. Chem 7 with elevated lactate of 4.3, which then decreased appropriately after fluid resuscitation. Elevated AST to ALT with bilirubin of 3.9 this morning. He is also severely malnourished with albumin of 1.9. Ultrasound abdomen with ascites. Review of Systems 2 Review of Systems: Yes all other systems are reviewed and are negative PMFSH Past Medical History Medical History Liver lesion Lesion of liver History of alcohol abuse Tobacco abuse Gout Tongue abnormality COVID-19 vaccine series completed Use of cane as ambulatory aid History of recent fall Hx of concussion Anxiety Wears dentures Primary osteoarthritis of right hip HTN (hypertension) Family History Family History Father No problems noted. Mother Cirrhosis Surgical History Surgical History History of total left hip arthroplasty Hx of colonoscopy History of fracture of leg History of arm fracture History of back surgery Social History Social History Household Members: Other Housing: Apartment Are you a primary child care associate to a significant other at home: No Do you presently have visiting nurse or other home services: Yes Alcohol intake: former Patient Tobacco Use Status: Current everyday Tobacco user Tobacco use type: Cigarette Cigarette Packs Per Day: 1 Cigarettes Per Day: 20.0 Years Smoked: 46 e-Cigarette/Vaping Use: Never Used Second Hand Smoke Exposure: No Substance Use Type: Opiates service: No Current occupational status: retired Current occupation: rt handed Meds Allergies Allergy/AdvReac Type Severity Reaction Status Date / Time No Known Allergies Allergy Verified 04/18/25 08:47 Active Medications: Current Medications Acetaminophen (Acetaminophen 325 Mg Tablet) 650 mg PO Q6H PRN PRN Reason: Pain, Mild 1-3,fever,headache Calcium Carbonate (Calcium Carbonate 750 Mg Tab.Chew) 750 mg PO Q4H PRN PRN Reason: Heartburn Ceftriaxone Sodium (Ceftriaxone Sodium 1 Gm Vial) 1 gm IVPUSH Q24H [facility] Last Admin: 04/17/25 16:33 Dose: 1 gm Folic Acid (Folic Acid 1 Mg Tablet) 1 mg PO DAILY [facility] Stop: 04/20/25 08:59 Last Admin: 04/17/25 08:48 Dose: Not Given Hydroxyzine HCl (Hydroxyzine Hcl 25 Mg Tablet) 25 mg PO Q6H PRN PRN Reason: Anxiety Thiamine HCl 100 mg/ Sodium (Chloride) 101 mls @ 202 mls/hr IV BID [facility] Stop: 04/19/25 20:59 Last Infusion: 04/17/25 22:29 Dose: Infused Octreotide Acetate 500 mcg/ (Sodium Chloride) 501 mls @ 50.1 mls/hr IVCONT .Q10H [facility] Last Admin: 04/17/25 23:51 Dose: 50 mcg/hr, 50.1 mls/hr Metronidazole (Flagyl) 500 mg in 100 mls @ 100 mls/hr IV Q8H [facility] Last Infusion: 04/18/25 07:32 Dose: Infused Lactated Ringer's (Lr) 1,000 mls @ 100 mls/hr IVCONT .Q10H [facility] Last Admin: 04/18/25 00:10 Dose: 100 mls/hr Magnesium Hydroxide (Milk Of Magnesia 30 Ml Oral.Susp) 30 ml PO DAILY PRN PRN Reason: Constipation Magnesium Hydroxide (Milk Of Magnesia 30 Ml Oral.Susp) 30 ml PO DAILY PRN PRN Reason: Constipation Melatonin (Melatonin 3 Mg Tablet) 6 mg PO BEDTIME PRN PRN Reason: Insomnia Multivitamins/Vitamin C (Multivitamin Tablet) 1 tab PO DAILY [facility] Stop: 04/20/25 08:59 Last Admin: 04/17/25 08:48 Dose: Not Given Pantoprazole Sodium (Pantoprazole Sodium 40 Mg/10 Ml Vial) 40 mg IVPUSH BID@0630,1630 [facility] Last Admin: 04/18/25 06:05 Dose: 40 mg Pharmacy Consult (Consult Rx Etoh Phenob Im/Po) 1 each MISCELLANE ONCE PRN; Protocol PRN Reason: Consult order Phenobarbital (Phenobarbital 15 Mg Tablet) 45 mg PO BID [facility]; Protocol Stop: 04/18/25 21:01 Last Admin: 04/17/25 22:20 Dose: 45 mg Phenobarbital (Phenobarbital 15 Mg Tablet) 15 mg PO BID [facility]; Protocol Stop: 04/20/25 21:01 Phenobarbital (Phenobarbital 15 Mg Tablet) 15 mg PO DAILY [facility]; Protocol Stop: 04/22/25 09:01 Sodium Chloride (0.9 % Sodium Chloride Flush 3 Ml Syringe) 3 ml IVFLUSH QSHIFT [facility] Last Admin: 04/18/25 00:18 Dose: Not Given Home Medications ?Medication ?Instructions ?Recorded ?Confirmed ?Last Taken ?Type No Known Home Meds 04/16/25 04/16/25 Un known History Physical Exam 2 Exam: Exam: Disheveled, severely malnourished bitemporal wasting Angular chelitis Multiple actinic keratosis abd soft mildly distended nontender mild peripheral edema Vital Signs: Vital Signs: Last Vital Signs Temp 97.1 F 04/18/25 07:10 Pulse 96 04/18/25 07:10 Resp 18 04/18/25 07:10 BP 142/64 H 04/18/25 07:10 Pulse Ox 95 04/18/25 07:10 O2 Del Method Nasal Cannula 04/18/25 07:10 O2 Flow Rate 1 04/18/25 07:10 BMI result Body Mass Index 28.3 Results Labs 04/18/25 06:24 04/18/25 06:24 Labs: Short CBC 04/17/25 04/18/25 Range/Units 13:40 06:24 Hgb 9.2 L D 8.0 L (14.0-18.0) g/dl Hct 25.9 L D 22.6 L (42.0-52.0) % Microbiology Microbiology Results: Microbiology 04/16/25 15:05 Blood - Venous Blood Culture - Preliminary No growth after 24 hours. 04/16/25 15:00 Blood - Venous Blood Culture - Preliminary No growth after 24 hours. Assessment and Plan (1) Alcohol use disorder, severe, dependence: Status: Acute (2) Alcohol withdrawal: Qualifiers: Complication of substance-induced condition: with unspecified complication Qualified Code(s): F10.939 - Alcohol use, unspecified with withdrawal, unspecified Status: Acute (3) Upper GI bleed: Status: Acute (4) Cirrhosis: Status: Acute (5) Acute on chronic anemia: Status: Acute (6) Frailty: Status: Acute (7) Malnourished: Status: Acute Plan Pt does not report any overt GI bleeding but certainly at risk for UGIB from variceal bleeding vs gastropathy vs GAVE vs esophagitis/gastritis vs PUD. He is also severely malnourished. Was given Vit K IV yest. Plan: - EGD today - Please keep NPO - Cont octreotide, ceftriaxone and pantoprazole for now. - Switch thiamine to high dose IV - Cuff Knitter consult - Addiction medicine consult Thank you for for allowing me to participate in his care. Please do not hesitate to reach out for any questions or concerns. Procedures Date of Service Date of Service: 04/18/25
[2025-04-18 07:50] LABS: Alanine Aminotransferase 8 U/L (0-40); Albumin Level 1.9 g/dL (3.5-5.0); Alkaline Phosphatase 164 U/L (39-117); Anion Gap 11 (12-20); Aspartate Amino Transferase 90 U/L (5-37); Blood Urea Nitrogen 11 mg/dL (9-16); Calcium 6.4 mg/dL (8.4-10.2); Carbon Dioxide 20 mmol/L (22-29); Chloride 104 mmol/L (96-108); Creatinine Clr Calc Pharmacy 125.7; Estimated Glomerular Filt Rate > 60; Magnesium 1.2 mg/dL (1.6-2.6); Potassium 3.6 mmol/L (3.3-5.1); Sodium 131 mmol/L (135-145); Total Protein 5.2 g/dL (6.5-8.0)
--- NOTE | 2025-04-18 07:56 | P.CONAN_ITS ---
Documented by User: Keturah Castillo NP 04/18/25 08:12 HPI - Anesthesia Eval Consult details Narrative: 64 yr old male for upper endoscopy No CP or SOB +Smoker, coughing up phlegm; sats are 95% on 1 liter O2 Hypomagnesia: Mag 1.2, currently being replaced Acute hypoxic respiratory failure, ?pneumonia: on 1 liter O2 Encephalopathy, acute ETOH withdrawl End stage liver disease 2/2 ETOH use Acute blood loss anemia: received 2 units PRBCs; Hgb 6.4 --> 8.0 today 04/17/25 PMF Active Problems Active Problems: All Active Problems Pneumonia (Acute) Acute and chronic respiratory failure with hypoxia (Acute) Upper GI bleed (Acute) End stage liver disease (Acute) Anemia (Acute) Acidosis, lactic (Acute) Acute on chronic anemia (Acute) Prolonged QT interval (Acute) Alcohol withdrawal (Acute) Alcohol use disorder, severe, dependence (Acute) Tubular adenoma of colon (Acute) Screening PSA (prostate specific antigen) (Acute) Tachycardia (Acute) Chronic left hip pain (Acute) Pre-op evaluation (Acute) Status post total hip replacement, left (Acute) Physical exam (Acute) Screening for colon cancer (Acute) Smoker (Acute) Past Medical History Medical History Liver lesion Lesion of liver History of alcohol abuse Tobacco abuse Gout Tongue abnormality COVID-19 vaccine series completed Use of cane as ambulatory aid History of recent fall Hx of concussion Anxiety Wears dentures Primary osteoarthritis of right hip HTN (hypertension) Family History Family History Father No problems noted. Mother Cirrhosis Family history of problems with anesthesia: No Surgical History Surgical History History of total left hip arthroplasty Hx of colonoscopy History of fracture of leg History of arm fracture History of back surgery History of Problems with Anesthesia: No Social History Social History Household Members: Other Housing: Apartment Are you a primary care assistant to a significant other at home: No Do you presently have visiting nurse or other home services: Yes Alcohol intake: former Patient Tobacco Use Status: Current everyday Tobacco user Tobacco use type: Cigarette Cigarette Packs Per Day: 1 Cigarettes Per Day: 20.0 Years Smoked: 46 e-Cigarette/Vaping Use: Never Used Second Hand Smoke Exposure: No Substance Use Type: Opiates service: No Current occupational status: retired Current occupation: rt handed Meds Allergies Allergy/AdvReac Type Severity Reaction Status Date / Time No Known Allergies Allergy Verified 04/18/25 08:47 Active Medications: Current Medications Acetaminophen (Acetaminophen 325 Mg Tablet) 650 mg PO Q6H PRN PRN Reason: Pain, Mild 1-3,fever,headache Calcium Carbonate (Calcium Carbonate 750 Mg Tab.Chew) 750 mg PO Q4H PRN PRN Reason: Heartburn Ceftriaxone Sodium (Ceftriaxone Sodium 1 Gm Vial) 1 gm IVPUSH Q24H [facility] Last Admin: 04/17/25 16:33 Dose: 1 gm Folic Acid (Folic Acid 1 Mg Tablet) 1 mg PO DAILY [facility] Stop: 04/20/25 08:59 Last Admin: 04/17/25 08:48 Dose: Not Given Hydroxyzine HCl (Hydroxyzine Hcl 25 Mg Tablet) 25 mg PO Q6H PRN PRN Reason: Anxiety Thiamine HCl 100 mg/ Sodium (Chloride) 101 mls @ 202 mls/hr IV BID DAMIÁN Stop: 04/19/25 20:59 Last Infusion: 04/17/25 22:29 Dose: Infused Octreotide Acetate 500 mcg/ (Sodium Chloride) 501 mls @ 50.1 mls/hr IVCONT .Q10H [facility] Last Admin: 04/17/25 23:51 Dose: 50 mcg/hr, 50.1 mls/hr Metronidazole (Flagyl) 500 mg in 100 mls @ 100 mls/hr IV Q8H [facility] Last Infusion: 04/18/25 07:32 Dose: Infused Lactated Ringer's (Lr) 1,000 mls @ 100 mls/hr IVCONT .Q10H [facility] Last Admin: 04/18/25 00:10 Dose: 100 mls/hr Magnesium Sulfate (Magnesium Sulfate/H2o) 2 gm in 50 mls @ 25 mls/hr IV ONCE ONE Stop: 04/18/25 09:48 Magnesium Hydroxide (Milk Of Magnesia 30 Ml Oral.Susp) 30 ml PO DAILY PRN PRN Reason: Constipation Magnesium Hydroxide (Milk Of Magnesia 30 Ml Oral.Susp) 30 ml PO DAILY PRN PRN Reason: Constipation Melatonin (Melatonin 3 Mg Tablet) 6 mg PO BEDTIME PRN PRN Reason: Insomnia Multivitamins/Vitamin C (Multivitamin Tablet) 1 tab PO DAILY [facility] Stop: 04/20/25 08:59 Last Admin: 04/17/25 08:48 Dose: Not Given Naloxone HCl (Naloxone Hcl 0.4 Mg/Ml Vial) 0.04 mg IVPUSH Q5M PRN PRN Reason: Excessive sedation or RR < 8 Pantoprazole Sodium (Pantoprazole Sodium 40 Mg/10 Ml Vial) 40 mg IVPUSH BID@0630,1630 [facility] Last Admin: 04/18/25 06:05 Dose: 40 mg Pharmacy Consult (Consult Rx Etoh Phenob Im/Po) 1 each MISCELLANE ONCE PRN; Protocol PRN Reason: Consult order Phenobarbital (Phenobarbital 15 Mg Tablet) 45 mg PO BID [facility]; Protocol Stop: 04/18/25 21:01 Last Admin: 04/17/25 22:20 Dose: 45 mg Phenobarbital (Phenobarbital 15 Mg Tablet) 15 mg PO BID [facility]; Protocol Stop: 04/20/25 21:01 Phenobarbital (Phenobarbital 15 Mg Tablet) 15 mg PO DAILY [facility]; Protocol Stop: 04/22/25 09:01 Sodium Chloride (0.9 % Sodium Chloride Flush 3 Ml Syringe) 3 ml IVFLUSH QSHIFT [facility] Last Admin: 04/18/25 00:18 Dose: Not Given Home Medications ?Medication ?Instructions ?Recorded ?Confirmed ?Last Taken ?Type No Known Home Meds 04/16/25 04/16/25 Un known History Exam Height,Weight and Vital Signs: Height 5 ft 7 in Weight 81.9 kg Last Vital Signs Temp 97.1 F 04/18/25 07:10 Pulse 96 04/18/25 07:10 Resp 18 04/18/25 07:10 BP 142/64 H 04/18/25 07:10 Pulse Ox 95 04/18/25 07:10 O2 Del Method Nasal Cannula 04/18/25 07:10 O2 Flow Rate 1 04/18/25 07:10 Pertinent Lab Results Pertinent Lab Results: Laboratory Tests 04/16/25 04/16/25 04/16/25 15:00 15:01 17:24 WBC 11.5 H RBC 2.23 L Hgb 7.2 L D Hct 21.2 L D MCV 95.1 MCH 32.3 MCHC 34.0 RDW 24.1 H Plt Count 162 D MPV 10.0 Immature Gran % (Auto) 1.0 H Neut % (Auto) 79.9 H Lymph % (Auto) 10.4 L [place] % (Auto) 8.5 Eos % (Auto) 0.1 Baso % (Auto) 0.1 Lymph # (Auto) 1.2 [place] # (Auto) 1.0 Eos # (Auto) 0.0 Baso # (Auto) 0.0 Abs Immat Gran (auto) 0.12 H Absolute Neuts (auto) 9.2 H Absolute Nucleated RBC 0.020 H Nucleated RBC % (auto) 0.2 Hold Purple Top SEE NOTE PT 36.6 H INR 3.2 H D D-Dimer High Sensitivty VBG pH VBG pCO2 VBG pO2 VBG HCO3 VBG O2 Saturation VBG Base Excess Sodium 130 L 130 L Potassium 3.0 L 2.8 L* Chloride 93 L 95 L Carbon Dioxide 20 L 17 L Anion Gap 20 21 H BUN 12 11 Creatinine 0.75 0.61 Estim Creat Clear Calc 91.8 112.8 Estimated GFR > 60 > 60 Random Glucose 128 H 127 H Lactic Acid 11.3 H* Cancelled Lactic Acid F/U @ 2Hr 12.4 H* Lactic Acid F/U @ 4Hr Calcium 6.8 L D 6.5 L Magnesium 0.9 L* Iron TIBC % Saturation Unsat Iron Binding Total Bilirubin 3.2 H Direct Bilirubin 1.6 H AST 79 H ALT 10 Alkaline Phosphatase 217 H Ammonia Total Creatine Kinase 45 Troponin I High Sens 3.2 C-Reactive Protein 1.19 H Total Protein 6.1 L Albumin 2.3 L Lipase 17 Vitamin B12 Folate Procalcitonin Urine Color Urine Appearance Urine pH Ur Specific [place] Urine Protein Urine Glucose (UA) Urine Ketones Urine Blood Urine Nitrite Ur Leukocyte Esterase Stool Occult Blood Urine Opiates Screen Ur Buprenorphine Scrn Ur Oxycodone Screen Urine Methadone Screen Urine Fentanyl Screen Ur Barbiturates Screen Ur Phencyclidine Scrn Ur Amphetamines Screen U Benzodiazepines Scrn Urine Cocaine Screen U Marijuana (THC) Screen Ethyl Alcohol 11 COVID-19 (ISMAEL) Negative COVID-19 Clin Com See Note Blood Type A Negative Antibody Screen NEGATIVE Crossmatch See Detail 04/16/25 04/16/25 04/17/25 17:52 19:58 02:50 WBC 11.8 H RBC 2.00 L Hgb 6.4 L* Hct 18.9 L* MCV 94.5 MCH 32.0 MCHC 33.9 RDW 24.2 H Plt Count 158 L MPV 9.7 Immature Gran % (Auto) 0.5 H Neut % (Auto) 70.5 Lymph % (Auto) 20.3 [place] % (Auto) 7.2 Eos % (Auto) 1.4 Baso % (Auto) 0.1 Lymph # (Auto) 2.4 [place] # (Auto) 0.9 Eos # (Auto) 0.2 Baso # (Auto) 0.0 Abs Immat Gran (auto) 0.06 H Absolute Neuts (auto) 8.3 Absolute Nucleated RBC 0.020 H Nucleated RBC % (auto) 0.2 Hold Purple Top PT INR D-Dimer High Sensitivty 454 VBG pH VBG pCO2 VBG pO2 VBG HCO3 VBG O2 Saturation VBG Base Excess Sodium 129 L 130 L Potassium 3.1 L 3.3 Chloride 97 101 Carbon Dioxide 20 L 17 L Anion Gap 15 15 BUN 11 12 Creatinine 0.64 0.62 Estim Creat Clear Calc 107.5 111.0 Estimated GFR > 60 > 60 Random Glucose 206 H 101 Lactic Acid 5.4 H* Lactic Acid F/U @ 2Hr Lactic Acid F/U @ 4Hr 9.0 H* Calcium 6.4 L 6.6 L Magnesium 1.8 1.5 L Iron 135 TIBC 160 L % Saturation 84 H Unsat Iron Binding < 25 Total Bilirubin 2.3 H Direct Bilirubin AST 78 H ALT 9 Alkaline Phosphatase 198 H Ammonia 71 H Total Creatine Kinase Troponin I High Sens C-Reactive Protein Total Protein 5.8 L Albumin 2.1 L Lipase Vitamin B12 Folate Procalcitonin 0.28 Urine Color Dark Yellow Urine Appearance Clear Urine pH 6.5 Ur Specific [place] 1.010 Urine Protein Trace Urine Glucose (UA) Negative Urine Ketones Negative Urine Blood Negative Urine Nitrite Negative Ur Leukocyte Esterase Negative Stool Occult Blood Urine Opiates Screen Not Detected Ur Buprenorphine Scrn Not Detected Ur Oxycodone Screen Not Detected Urine Methadone Screen Not Detected Urine Fentanyl Screen Not Detected Ur Barbiturates Screen POSITIVE H Ur Phencyclidine Scrn Not Detected Ur Amphetamines Screen Not Detected U Benzodiazepines Scrn Not Detected Urine Cocaine Screen Not Detected U Marijuana (THC) Screen Not Detected Ethyl Alcohol COVID-19 ([facility]MA[facility]) COVID-19 Clin Com Blood Type Antibody Screen Crossmatch 04/17/25 04/17/25 04/17/25 04:27 05:05 06:16 WBC RBC Hgb Hct MCV MCH MCHC RDW Plt Count MPV Immature Gran % (Auto) Neut % (Auto) Lymph % (Auto) [place] % (Auto) Eos % (Auto) Baso % (Auto) Lymph # (Auto) [place] # (Auto) Eos # (Auto) Baso # (Auto) Abs Immat Gran (auto) Absolute Neuts (auto) Absolute Nucleated RBC Nucleated RBC % (auto) Hold Purple Top PT INR D-Dimer High Sensitivty VBG pH 7.50 H VBG pCO2 28 VBG pO2 178 VBG HCO3 22 VBG O2 Saturation TNP VBG Base Excess -0.5 Sodium Potassium Chloride Carbon Dioxide Anion Gap BUN Creatinine Estim Creat Clear Calc Estimated GFR Random Glucose Lactic Acid Lactic Acid F/U @ 2Hr 4.3 H* Lactic Acid F/U @ 4Hr Calcium Magnesium Iron TIBC % Saturation Unsat Iron Binding Total Bilirubin Direct Bilirubin AST ALT Alkaline Phosphatase Ammonia Total Creatine Kinase Troponin I High Sens C-Reactive Protein Total Protein Albumin Lipase Vitamin B12 1200 H Folate 3.4 L Procalcitonin Urine Color Urine Appearance Urine pH Ur Specific [place] Urine Protein Urine Glucose (UA) Urine Ketones Urine Blood Urine Nitrite Ur Leukocyte Esterase Stool Occult Blood Urine Opiates Screen Ur Buprenorphine Scrn Ur Oxycodone Screen Urine Methadone Screen Urine Fentanyl Screen Ur Barbiturates Screen Ur Phencyclidine Scrn Ur Amphetamines Screen U Benzodiazepines Scrn Urine Cocaine Screen U Marijuana (THC) Screen Ethyl Alcohol COVID-19 (ISMAEL) COVID-19 [facility] Com Blood Type Antibody Screen Crossmatch 04/17/25 04/17/25 04/17/25 07:59 11:04 13:40 WBC RBC Hgb 9.2 L D Hct 25.9 L D MCV MCH MCHC RDW Plt Count MPV Immature Gran % (Auto) Neut % (Auto) Lymph % (Auto) [place] % (Auto) Eos % (Auto) Baso % (Auto) Lymph # (Auto) [place] # (Auto) Eos # (Auto) Baso # (Auto) Abs Immat Gran (auto) Absolute Neuts (auto) Absolute Nucleated RBC Nucleated RBC % (auto) Hold Purple Top SEE NOTE PT INR D-Dimer High Sensitivty VBG pH VBG pCO2 VBG pO2 VBG HCO3 VBG O2 Saturation VBG Base Excess Sodium Potassium Chloride Carbon Dioxide Anion Gap BUN Creatinine Estim Creat Clear Calc Estimated GFR Random Glucose Lactic Acid Lactic Acid F/U @ 2Hr Lactic Acid F/U @ 4Hr 2.5 H* Calcium Magnesium Iron TIBC % Saturation Unsat Iron Binding Total Bilirubin Direct Bilirubin AST ALT Alkaline Phosphatase Ammonia Total Creatine Kinase Troponin I High Sens C-Reactive Protein Total Protein Albumin Lipase Vitamin B12 Folate Procalcitonin Urine Color Urine Appearance Urine pH Ur Specific [place] Urine Protein Urine Glucose (UA) Urine Ketones Urine Blood Urine Nitrite Ur Leukocyte Esterase Stool Occult Blood NEGATIVE Urine Opiates Screen Ur Buprenorphine Scrn Ur Oxycodone Screen Urine Methadone Screen Urine Fentanyl Screen Ur Barbiturates Screen Ur Phencyclidine Scrn Ur Amphetamines Screen U Benzodiazepines Scrn Urine Cocaine Screen U Marijuana (THC) Screen Ethyl Alcohol COVID-19 ([facility]MA[facility]) COVID-19 Clin Com Blood Type Antibody Screen Crossmatch 04/18/25 06:24 WBC RBC Hgb 8.0 L Hct 22.6 L MCV MCH MCHC RDW Plt Count MPV Immature Gran % (Auto) Neut % (Auto) Lymph % (Auto) [place] % (Auto) Eos % (Auto) Baso % (Auto) Lymph # (Auto) [place] # (Auto) Eos # (Auto) Baso # (Auto) Abs Immat Gran (auto) Absolute Neuts (auto) Absolute Nucleated RBC Nucleated RBC % (auto) Hold Purple Top PT INR D-Dimer High Sensitivty VBG pH VBG pCO2 VBG pO2 VBG HCO3 VBG O2 Saturation VBG Base Excess Sodium 131 L Potassium 3.6 Chloride 104 Carbon Dioxide 20 L Anion Gap 11 L BUN 11 Creatinine 0.60 Estim Creat Clear Calc 125.7 Estimated GFR > 60 Random Glucose 123 H Lactic Acid Lactic Acid F/U @ 2Hr Lactic Acid F/U @ 4Hr Calcium 6.4 L Magnesium 1.2 L* Iron TIBC % Saturation Unsat Iron Binding Total Bilirubin 3.9 H Direct Bilirubin AST 90 H ALT 8 Alkaline Phosphatase 164 H Ammonia Total Creatine Kinase Troponin I High Sens C-Reactive Protein Total Protein 5.2 L Albumin 1.9 L Lipase Vitamin B12 Folate Procalcitonin Urine Color Urine Appearance Urine pH Ur Specific [place] Urine Protein Urine Glucose (UA) Urine Ketones Urine Blood Urine Nitrite Ur Leukocyte Esterase Stool Occult Blood Urine Opiates Screen Ur Buprenorphine Scrn Ur Oxycodone Screen Urine Methadone Screen Urine Fentanyl Screen Ur Barbiturates Screen Ur Phencyclidine Scrn Ur Amphetamines Screen U Benzodiazepines Scrn Urine Cocaine Screen U Marijuana (THC) Screen Ethyl Alcohol COVID-19 ([facility]MA[facility]) COVID-19 Clin Com Blood Type Antibody Screen Crossmatch Narrative Narrative: ECHO 12/2022 Conclusions: - Normal left ventricular size, thickness, and systolic function. The visually estimated ejection fraction is between 55-60%. Diastolic function is normal for age. - Normal right ventricular cavity size and systolic function. - There is no evidence of pericardial effusion. EKG 03/2025 Vent. Rate : 112 BPM Atrial Rate : 112 BPM P-R Int : 138 ms QRS Dur : 76 ms QT Int : 386 ms P-R-T Axes : -29 25 24 degrees QTcB Int : 526 ms Poor data quality Sinus tachycardia Low voltage QRS Cannot rule out Anterior infarct , age undetermined Abnormal ECG When compared with ECG of 05-Jan-2023 16:07, Nonspecific T wave abnormality now evident in Anterolateral leads Airway Mallampati Class: III TM Dist: >3cm Neck ROM: Limited Denture: Upper (at home) and Lower (at home) Loose/Missing/Broken Teeth: Yes, Upper and Lower Heart: RRR Lungs: rhonchi, wheezing Assessment and Plan Final Anesthetic Review Family History of Problems with Anesthesia: No History of Problems with Anesthesia: No Documented by User: Karo Shaw MD 04/18/25 09:13 [facility] Past Medical History Medical History Liver lesion Lesion of liver History of alcohol abuse Tobacco abuse Gout Tongue abnormality COVID-19 vaccine series completed Use of cane as ambulatory aid History of recent fall Hx of concussion Anxiety Wears dentures Primary osteoarthritis of right hip HTN (hypertension) Family History Family History Father No problems noted. Mother Cirrhosis Surgical History Surgical History History of total left hip arthroplasty Hx of colonoscopy History of fracture of leg History of arm fracture History of back surgery Social History Social History Household Members: Other Housing: Apartment Are you a primary care assistant to a significant other at home: No Do you presently have visiting nurse or other home services: Yes Alcohol intake: former Patient Tobacco Use Status: Current everyday Tobacco user Tobacco use type: Cigarette Cigarette Packs Per Day: 1 Cigarettes Per Day: 20.0 Years Smoked: 46 e-Cigarette/Vaping Use: Never Used Second Hand Smoke Exposure: No Substance Use Type: Opiates service: No Current occupational status: retired Current occupation: rt handed Meds Allergies Allergy/AdvReac Type Severity Reaction Status Date / Time No Known Allergies Allergy Verified 04/18/25 08:47 Home Medications ?Medication ?Instructions ?Recorded ?Confirmed ?Last Taken ?Type No Known Home Meds 04/16/25 04/16/25 Un known History Exam Airway Mallampati Class: II Lungs: coarse inspiration, goog air movement Assessment and Plan Assessment Anesthesia Assessment: Anesthesia Plan Discussed and Chart Reviewed Final Anesthetic Review NPO: Yes ASA Class: III Final Preanesthetic Review: No Changes in Pt Med Stat, Meds/Allgs Chart Reviewed and Consent Obtained/Reviewed Patient Risk: Intermediate Procedure Risk: Intermediate Anesthetic Plan Anesthetic Plan: MAC: Disposition: Standard PACU
[2025-04-18] MEDS: Thiamine HCL 100 MG in 0.9 % Sodium Chloride 100 ML 202 MG IV ×2 (08:03→21:27)
[2025-04-18] MEDS: Magnesium Sulfate/H2O 2 GM/50 ML PIGGYBACK IV (08:03)
[2025-04-18 08:41] LABS: Procalcitonin 0.27 ng/mL
--- NOTE | 2025-04-18 09:14 | PC.NURSE ---
Dr. Glez stated that she will sign draft consultation as patient is being brought into room. Dr. Glez aware that patient INR was 3.2 yesterday. Stated Vitamin K was ordered and no redraw is necessary per dr. glez.
--- NOTE | 2025-04-18 09:36 | P.OP_ITS ---
Operative Note Operative Note Date of Service: 04/18/25 Narrative: Procedure: Esophagogastroduodenoscopy Endoscopist: Yoselin Saunders MD Indication: Anemia, r/o GIB Anesthesia Provider: Karo Brito MD Anesthesia Type: MAC Instrument: [id number], [id number] ?? EGD Procedure:?? The procedure, indications, preparation and potential complications were reviewed with the patient, who indicated understanding and gave written informed consent to proceed. A physical exam was performed. The endoscope was introduced through the mouth, and advanced to the second part of duodenum. The mucosa was carefully examined on slow withdrawal of the endoscope. The patient tolerated the procedure well. There were no immediate complications.? ? EGD Findings:? * Esophagus:? There was an esophageal web in the upper 1/3 of the esophagus precluding passage of regular gastroscope. Scope was switche to slim scope which could easily traverse through the web. Severe esophagitis with ulceration at GE junction was noted from 35 cm to 30 cm. Flat varices were noted. * Stomach:? Diffuse congestion and erythema in mosaic pattern consistent with portal hypertensive gastropathy was noted in the whole stomach. Some areas with spontaneous oozing. Retroflexion from the cardia that showed Hill grade 3 hiatal hernia. * Duodenum:? Edema and congestion in the duodenum to the extent examined consistent with duodenopathy. ? EGD Impressions:? * Esophageal web * Grade D esophagitis * Hiatal hernia * Portal hypertensive gastropathy * Portal hypertensive duodenopathy ?? Recommendations:?? * Continue IV PPI therapy. * Octreotide can be stopped. * Cont Ceftriaxone for 7 days. Can be switched to PO cipro at the time of discharge. * Swallow eval to determine diet texture * Patient will likely need dilation this admission but this will be done after pt receives PCC and additional Vit K to decrease risk of bleeding from dilation. * Avoid NSAIDs and alcohol. Above has been reviewed with the patient.
--- NOTE | 2025-04-18 10:55 | MHC.CM.PN ---
Patient is not yet medically cleared for dc (being scoped today r/t GIB); Patient may benefit from a PT Eval (attempted X2)to assist with disposition and CM will continue to follow.
--- NOTE | 2025-04-18 12:22 | P.PNIM_ITS ---
Subjective Subjective Date of Service: 04/18/25 Interval History: no further bleeding; transfused with tolerance EGD done Review of Systems Review of Systems: Yes all other systems are reviewed and are negative Physical Exam 2 Vital Signs: Vital Signs: Last Vital Signs Temp 97.5 F 04/18/25 11:20 Pulse 97 04/18/25 11:20 Resp 22 H 04/18/25 11:20 BP 131/56 L 04/18/25 11:20 Pulse Ox 99 04/18/25 11:20 O2 Del Method Nasal Cannula 04/18/25 11:20 O2 Flow Rate 2 04/18/25 11:20 BMI result Body Mass Index 28.3 Gen: in no acute distress HEENT: sclera icteric, moist mucus membranes Neck: supple Lungs: clear to auscultation bilaterally Heart: regular rate and rhythm, no murmurs Abd: soft, fluid wave present, nontender Ext: no edema Skin: warm/well-perfused Neuro: alert and oriented x3, no focal findings Psych: appropriate affect Objective Data Active Medications Acetaminophen (Acetaminophen 325 Mg Tablet) 650 mg PO Q6H PRN PRN Reason: Pain, Mild 1-3,fever,headache Calcium Carbonate (Calcium Carbonate 750 Mg Tab.Chew) 750 mg PO Q4H PRN PRN Reason: Heartburn Ceftriaxone Sodium (Ceftriaxone Sodium 1 Gm Vial) 1 gm IVPUSH Q24H [facility] Last Admin: 04/17/25 16:33 Dose: 1 gm Documented By: SABRINA Folic Acid (Folic Acid 1 Mg Tablet) 1 mg PO DAILY DAMIÁN Stop: 04/20/25 08:59 Last Admin: 04/18/25 10:45 Dose: 1 mg Documented By: NICOLE Hydroxyzine HCl (Hydroxyzine Hcl 25 Mg Tablet) 25 mg PO Q6H PRN PRN Reason: Anxiety Thiamine HCl 100 mg/ Sodium (Chloride) 101 mls @ 202 mls/hr IV BID DAMIÁN Stop: 04/19/25 20:59 Last Infusion: 04/18/25 10:36 Dose: Infused Documented By: NICOLE Metronidazole (Flagyl) 500 mg in 100 mls @ 100 mls/hr IV Q8H [facility] Last Infusion: 04/18/25 07:32 Dose: Infused Documented By: NICOLE Lactated Ringer's (Lr) 1,000 mls @ 100 mls/hr IVCONT .Q10H [facility] Last Admin: 04/18/25 10:41 Dose: 100 mls/hr Documented By: NICOLE Phytonadione 10 mg/ Sodium (Chloride) 51 mls @ 51 mls/hr IV ONCE ONE Stop: 04/18/25 11:53 Magnesium Hydroxide (Milk Of Magnesia 30 Ml Oral.Susp) 30 ml PO DAILY PRN PRN Reason: Constipation Magnesium Hydroxide (Milk Of Magnesia 30 Ml Oral.Susp) 30 ml PO DAILY PRN PRN Reason: Constipation Melatonin (Melatonin 3 Mg Tablet) 6 mg PO BEDTIME PRN PRN Reason: Insomnia Multivitamins/Vitamin C (Multivitamin Tablet) 1 tab PO DAILY [facility] Stop: 04/20/25 08:59 Last Admin: 04/18/25 10:45 Dose: 1 tab Documented By: NICOLE Naloxone HCl (Naloxone Hcl 0.4 Mg/Ml Vial) 0.04 mg IVPUSH Q5M PRN PRN Reason: Excessive sedation or RR < 8 Pantoprazole Sodium (Pantoprazole Sodium 40 Mg/10 Ml Vial) 40 mg IVPUSH BID@0630,1630 [facility] Last Admin: 04/18/25 06:05 Dose: 40 mg Documented By: DANE Pharmacy Consult (Consult Rx Etoh Phenob Im/Po) 1 each MISCELLANE ONCE PRN; Protocol PRN Reason: Consult order Phenobarbital (Phenobarbital 15 Mg Tablet) 45 mg PO BID [facility]; Protocol Stop: 04/18/25 21:01 Last Admin: 04/18/25 11:00 Dose: Not Given Documented By: NICOLE Non-Admin Reason: NPO Phenobarbital (Phenobarbital 15 Mg Tablet) 15 mg PO BID [facility]; Protocol Stop: 04/20/25 21:01 Phenobarbital (Phenobarbital 15 Mg Tablet) 15 mg PO DAILY [facility]; Protocol Stop: 04/22/25 09:01 Sodium Chloride (0.9 % Sodium Chloride Flush 3 Ml Syringe) 3 ml IVFLUSH QSHIFT [facility] Last Admin: 04/18/25 08:08 Dose: Not Given Documented By: NICOLE Non-Admin Reason: IV Running Labs 04/18/25 06:24 04/18/25 06:24 Labs: Laboratory Results - last 24 hr 10/21/25 10/22/25 07:59 06:24 Hold Purple Top SEE NOTE Anion Gap 11 L Estim Creat Clear Calc 125.7 Estimated GFR > 60 Random Glucose 123 H Calcium 6.4 L Magnesium 1.2 L* Total Bilirubin 3.9 H AST 90 H ALT 8 Alkaline Phosphatase 164 H Total Protein 5.2 L Albumin 1.9 L Procalcitonin 0.27 Microbiology Microbiology Results: Microbiology 04/16/25 15:00 Blood Culture - Preliminary Blood - Venous No growth after 24 hours. 04/16/25 15:05 Blood Culture - Preliminary Blood - Venous No growth after 24 hours. Assessment and Plan (1) Alcohol withdrawal: Status: Acute (2) End stage liver disease: Status: Acute (3) Upper GI bleed: Status: Acute (4) Acute and chronic respiratory failure with hypoxia: Status: Acute (5) Pneumonia: Status: Acute Plan d3, 64yo M with AUD presenting after possible seizure likely due to withdrawal syndrome; found to be severely anemic and hypoxic acute blood loss anemia due to UGIB due to cirrhosis - transfused 2u pRBCs with appropriate response; continue to monitor CBC - EGD 04/[address] Saunders: EGD Findings:? * Esophagus:? There was an esophageal web in the upper 1/3 of the esophagus precluding passage of regular gastroscope. Scope was switche to slim scope which could easily traverse through the web. Severe esophagitis with ulceration at GE junction was noted from 35 cm to 30 cm. Flat varices were noted. * Stomach:? Diffuse congestion and erythema in mosaic pattern consistent with portal hypertensive gastropathy was noted in the whole stomach. Some areas with spontaneous oozing. Retroflexion from the cardia that showed Hill grade 3 hiatal hernia. * Duodenum:? Edema and congestion in the duodenum to the extent examined consistent with duodenopathy. ? EGD Impressions:? * Esophageal web * Grade D esophagitis * Hiatal hernia * Portal hypertensive gastropathy * Portal hypertensive duodenopathy - continue IV PPI - d/c octreotide, continue ceftriaxone for SBP prophylaxis x7d [cipro upon discharge] - NPO pending [employer] evaluation - will likely need dilation but at risk of bleeding; will correct coagulopathy as possible and transfuse as necessary GEETA PNA: continue ceftriaxone and metronidazole 04/17- hypoMg: replete IV, recheck level tomorrow acute hypoxic respiratory failure: supplemental O2, wean as tolerated coagulopathy due to cirrhosis: repeat INR, give more vit K if needed AUD with withdrawal seizure: phenobarbital taper, thiamine, folate, Addiction Medicine consultation hypoNa: chronic, baseline level likely due to cirrhosis hypoK: repleted VTE ppx: SCDs, no heparin given GIB dispo: TBD In my clinical judgment, the patient requires continued inpatient hospitalization for the following reasons: EGD/dilation, NPO Total time managing care of this patient today: 50 minutes. Quality Stroke Does the patient have a stroke diagnosis?: No VTE Prior VTE?: No VTE Risk Level:: Medical - moderate - high VTE Device Contraindication: N/A - Device Ordered VTE Drug Contraindication: N/A - Med Ordered
[2025-04-18 12:52] LABS: INTERNATIONAL NORM RATIO 2.2 (0.9-1.1); Prothrombin Time 25.4 SEC (10.9-12.4)
--- NOTE | 2025-04-18 12:59 | HO.WOUND ---
Wound Consult: Initial 64 yr old male admitted to [facility] [place] [facility] [place]- See progress notes and H&P for detailed history. Wound consult placed for right forehead. Patient agreeable to assessment and photo documentation. Patient with history of alcohol use and falls. patient unable to give history of area of right head but reports that it happened during a fall. Right forehead Etiology: scab from previous injury Wound Bed: dry thin yellow/brown scab Drainage / Odor: none Edges: ? irregular Janet wound: ? No Induration, Fluctuance or Warmth noted- no surrounding redness or irritation Pain: none Goals of Treatment: ? leave open to air Recommendations: 1. Turn and Reposition every 2 hours and as needed for patient comfort. Use pillows or wedges to support off loading positions. 2. Off Load all bony prominences with use of pillows and heel boots if needed. Apply Preventative foams where needed. 3. Monitor for incontinence and moisture control, use barrier creams when needed for prevention and treatment. 4. Provide adequate and supplemental nutrition. 5. Order or Continue low air loss mattress. 6. When applicable maintain blood glucose levels per Providers order. Re-consult wound care Nurse for wound deterioration or wound changes.
--- NOTE | 2025-04-18 13:07 | HO.ADDICTCON ---
History of Present Illness Date of Service: 04/18/2025 Chief Complaint: alcohol use disorder Reason for Consult: AUD Sources of Information: patient interviewed and chart reviewed HPI Narrative: Patient is a 64 year old male with history of alcohol use disorder who presented to [facility] ED reporting frequent falls and daily alcohol use. Medically admitted with anemia requiring transfusion and alcohol withdrawal--phenobarbital and IV thiamine initiated. Majority of information obtained via chart review as patient weak and unable to fully participate in interview. At admission he reported drinking a pint of hard liquor daily. chart review shows patient was seen at [facility] in 2022 for AUD, and was receiving vivitrol injection. In those visits it was noted that patient reported history of [place] -including acamprosate and disulfiram last visit 03/2023. Unclear if he has had any other follow up/treatment since then Asked about withdrawal- he replied no, I don't feel any of that . asking several times for water CIWA scores have been low --scoring only for not being oriented to date He appeared comfortable overall-no restlessness or tremor noted. Not diaphoretic. VS WNL Being followed by GI--endoscopy this AM Medical Evaluation Reviewed: Yes Review of Systems Review of Systems Yes Unobtainable due to mental status Diagnostics Vital Signs (24Hr): Vital Signs - 24 hr 04/17/25 14:16 04/17/25 19:00 04/17/25 22:13 Temperature 97.8 F 98.6 F Pulse Rate 105 H 103 H Respiratory Rate 20 18 Blood Pressure 98/62 98/49 L 100/59 L Pulse Oximetry 97 98 90 L Oxygen Delivery Method Room Air Room Air Room Air Oxygen Flow Rate 04/17/25 23:51 04/18/25 02:55 04/18/25 07:10 Temperature 98.1 F 97.0 F 97.1 F Pulse Rate 109 H 96 96 Respiratory Rate 16 18 18 Blood Pressure 113/73 100/60 142/64 H Pulse Oximetry 88 L 92 95 Oxygen Delivery Method Nasal Cannula Nasal Cannula Nasal Cannula Oxygen Flow Rate 1 2 1 04/18/25 08:55 04/18/25 09:37 04/18/25 09:42 Temperature 98.6 F 97 F Pulse Rate 96 79 81 Respiratory Rate 16 16 16 Blood Pressure 99/58 L 87/49 L 89/39 L Pulse Oximetry 97 100 97 Oxygen Delivery Method Room Air Nasal Cannula Nasal Cannula Oxygen Flow Rate 2 2 04/18/25 09:47 04/18/25 09:52 04/18/25 10:07 Temperature 98 F Pulse Rate 85 80 84 Respiratory Rate 16 18 18 Blood Pressure 85/47 L 84/42 L 101/62 Pulse Oximetry 97 97 96 Oxygen Delivery Method Nasal Cannula Nasal Cannula Nasal Cannula Oxygen Flow Rate 2 2 2 04/18/25 11:20 Temperature 97.5 F Pulse Rate 97 Respiratory Rate 22 H Blood Pressure 131/56 L Pulse Oximetry 99 Oxygen Delivery Method Nasal Cannula Oxygen Flow Rate 2 BMI result Body Mass Index 28.3 Labs 04/18/25 06:24 04/18/25 06:24 Labs: Laboratory Results - last 48 hr 04/16/25 04/16/25 04/16/25 15:00 15:01 17:24 WBC 11.5 H RBC 2.23 L Hgb 7.2 L D Hct 21.2 L D MCV 95.1 MCH 32.3 MCHC 34.0 RDW 24.1 H Plt Count 162 D MPV 10.0 Immature Gran % (Auto) 1.0 H Neut % (Auto) 79.9 H Lymph % (Auto) 10.4 L [place] % (Auto) 8.5 Eos % (Auto) 0.1 Baso % (Auto) 0.1 Lymph # (Auto) 1.2 [place] # (Auto) 1.0 Eos # (Auto) 0.0 Baso # (Auto) 0.0 Abs Immat Gran (auto) 0.12 H Absolute Neuts (auto) 9.2 H Absolute Nucleated RBC 0.020 H Nucleated RBC % (auto) 0.2 Hold Purple Top SEE NOTE PT 36.6 H INR 3.2 H D D-Dimer High Sensitivty VBG pH VBG pCO2 VBG pO2 VBG HCO3 VBG O2 Saturation VBG Base Excess Sodium 130 L 130 L Potassium 3.0 L 2.8 L* Chloride 93 L 95 L Carbon Dioxide 20 L 17 L Anion Gap 20 21 H BUN 12 11 Creatinine 0.75 0.61 Estim Creat Clear Calc 91.8 112.8 Estimated GFR > 60 > 60 Random Glucose 128 H 127 H Lactic Acid 11.3 H* Cancelled Lactic Acid F/U @ 2Hr 12.4 H* Lactic Acid F/U @ 4Hr Calcium 6.8 L D 6.5 L Magnesium 0.9 L* Iron TIBC % Saturation Unsat Iron Binding Total Bilirubin 3.2 H Direct Bilirubin 1.6 H AST 79 H ALT 10 Alkaline Phosphatase 217 H Ammonia Total Creatine Kinase 45 Troponin I High Sens 3.2 C-Reactive Protein 1.19 H Total Protein 6.1 L Albumin 2.3 L Lipase 17 Vitamin B12 Folate Procalcitonin Urine Color Urine Appearance Urine pH Ur Specific [place] Urine Protein Urine Glucose (UA) Urine Ketones Urine Blood Urine Nitrite Ur Leukocyte Esterase Stool Occult Blood Urine Opiates Screen Ur Buprenorphine Scrn Ur Oxycodone Screen Urine Methadone Screen Urine Fentanyl Screen Ur Barbiturates Screen Ur Phencyclidine Scrn Ur Amphetamines Screen U Benzodiazepines Scrn Urine Cocaine Screen U Marijuana (THC) Screen Ethyl Alcohol 11 COVID-19 (ISMAEL) Negative COVID-19 Clin Com See Note Blood Type A Negative Antibody Screen NEGATIVE Crossmatch See Detail 04/16/25 04/16/25 04/17/25 17:52 19:58 02:50 WBC 11.8 H RBC 2.00 L Hgb 6.4 L* Hct 18.9 L* MCV 94.5 MCH 32.0 MCHC 33.9 RDW 24.2 H Plt Count 158 L MPV 9.7 Immature Gran % (Auto) 0.5 H Neut % (Auto) 70.5 Lymph % (Auto) 20.3 [place] % (Auto) 7.2 Eos % (Auto) 1.4 Baso % (Auto) 0.1 Lymph # (Auto) 2.4 [place] # (Auto) 0.9 Eos # (Auto) 0.2 Baso # (Auto) 0.0 Abs Immat Gran (auto) 0.06 H Absolute Neuts (auto) 8.3 Absolute Nucleated RBC 0.020 H Nucleated RBC % (auto) 0.2 Hold Purple Top PT INR D-Dimer High Sensitivty 454 VBG pH VBG pCO2 VBG pO2 VBG HCO3 VBG O2 Saturation VBG Base Excess Sodium 129 L 130 L Potassium 3.1 L 3.3 Chloride 97 101 Carbon Dioxide 20 L 17 L Anion Gap 15 15 BUN 11 12 Creatinine 0.64 0.62 Estim Creat Clear Calc 107.5 111.0 Estimated GFR > 60 > 60 Random Glucose 206 H 101 Lactic Acid 5.4 H* Lactic Acid F/U @ 2Hr Lactic Acid F/U @ 4Hr 9.0 H* Calcium 6.4 L 6.6 L Magnesium 1.8 1.5 L Iron 135 TIBC 160 L % Saturation 84 H Unsat Iron Binding < 25 Total Bilirubin 2.3 H Direct Bilirubin AST 78 H ALT 9 Alkaline Phosphatase 198 H Ammonia 71 H Total Creatine Kinase Troponin I High Sens C-Reactive Protein Total Protein 5.8 L Albumin 2.1 L Lipase Vitamin B12 Folate Procalcitonin 0.28 Urine Color Dark Yellow Urine Appearance Clear Urine pH 6.5 Ur Specific [place] 1.010 Urine Protein Trace Urine Glucose (UA) Negative Urine Ketones Negative Urine Blood Negative Urine Nitrite Negative Ur Leukocyte Esterase Negative Stool Occult Blood Urine Opiates Screen Not Detected Ur Buprenorphine Scrn Not Detected Ur Oxycodone Screen Not Detected Urine Methadone Screen Not Detected Urine Fentanyl Screen Not Detected Ur Barbiturates Screen POSITIVE H Ur Phencyclidine Scrn Not Detected Ur Amphetamines Screen Not Detected U Benzodiazepines Scrn Not Detected Urine Cocaine Screen Not Detected U Marijuana (THC) Screen Not Detected Ethyl Alcohol COVID-19 (ISMAEL) COVID-19 Clin Com Blood Type Antibody Screen Crossmatch 04/17/25 04/17/25 04/17/25 04:27 05:05 06:16 WBC RBC Hgb Hct MCV MCH MCHC RDW Plt Count MPV Immature Gran % (Auto) Neut % (Auto) Lymph % (Auto) [place] % (Auto) Eos % (Auto) Baso % (Auto) Lymph # (Auto) [place] # (Auto) Eos # (Auto) Baso # (Auto) Abs Immat Gran (auto) Absolute Neuts (auto) Absolute Nucleated RBC Nucleated RBC % (auto) Hold Purple Top PT INR D-Dimer High Sensitivty VBG pH 7.50 H VBG pCO2 28 VBG pO2 178 VBG HCO3 22 VBG O2 Saturation TNP VBG Base Excess -0.5 Sodium Potassium Chloride Carbon Dioxide Anion Gap BUN Creatinine Estim Creat Clear Calc Estimated GFR Random Glucose Lactic Acid Lactic Acid F/U @ 2Hr 4.3 H* Lactic Acid F/U @ 4Hr Calcium Magnesium Iron TIBC % Saturation Unsat Iron Binding Total Bilirubin Direct Bilirubin AST ALT Alkaline Phosphatase Ammonia Total Creatine Kinase Troponin I High Sens C-Reactive Protein Total Protein Albumin Lipase Vitamin B12 1200 H Folate 3.4 L Procalcitonin Urine Color Urine Appearance Urine pH Ur Specific [place] Urine Protein Urine Glucose (UA) Urine Ketones Urine Blood Urine Nitrite Ur Leukocyte Esterase Stool Occult Blood Urine Opiates Screen Ur Buprenorphine Scrn Ur Oxycodone Screen Urine Methadone Screen Urine Fentanyl Screen Ur Barbiturates Screen Ur Phencyclidine Scrn Ur Amphetamines Screen U Benzodiazepines Scrn Urine Cocaine Screen U Marijuana (THC) Screen Ethyl Alcohol COVID-19 (ISMAEL) COVID-19 [employer] [facility] Com Blood Type Antibody Screen Crossmatch 04/17/25 04/17/25 04/17/25 07:59 11:04 13:40 WBC RBC Hgb 9.2 L D Hct 25.9 L D MCV MCH MCHC RDW Plt Count MPV Immature Gran % (Auto) Neut % (Auto) Lymph % (Auto) [place] % (Auto) Eos % (Auto) Baso % (Auto) Lymph # (Auto) [place] # (Auto) Eos # (Auto) Baso # (Auto) Abs Immat Gran (auto) Absolute Neuts (auto) Absolute Nucleated RBC Nucleated RBC % (auto) Hold Purple Top SEE NOTE PT INR D-Dimer High Sensitivty VBG pH VBG pCO2 VBG pO2 VBG HCO3 VBG O2 Saturation VBG Base Excess Sodium Potassium Chloride Carbon Dioxide Anion Gap BUN Creatinine Estim Creat Clear Calc Estimated GFR Random Glucose Lactic Acid Lactic Acid F/U @ 2Hr Lactic Acid F/U @ 4Hr 2.5 H* Calcium Magnesium Iron TIBC % Saturation Unsat Iron Binding Total Bilirubin Direct Bilirubin AST ALT Alkaline Phosphatase Ammonia Total Creatine Kinase Troponin I High Sens C-Reactive Protein Total Protein Albumin Lipase Vitamin B12 Folate Procalcitonin Urine Color Urine Appearance Urine pH Ur Specific [place] Urine Protein Urine Glucose (UA) Urine Ketones Urine Blood Urine Nitrite Ur Leukocyte Esterase Stool Occult Blood NEGATIVE Urine Opiates Screen Ur Buprenorphine Scrn Ur Oxycodone Screen Urine Methadone Screen Urine Fentanyl Screen Ur Barbiturates Screen Ur Phencyclidine Scrn Ur Amphetamines Screen U Benzodiazepines Scrn Urine Cocaine Screen U Marijuana (THC) Screen Ethyl Alcohol COVID-19 (ISMAEL) COVID-19 [employer] Com Blood Type Antibody Screen Crossmatch 04/18/25 04/18/25 06:24 12:35 WBC RBC Hgb 8.0 L Hct 22.6 L MCV MCH MCHC RDW Plt Count MPV Immature Gran % (Auto) Neut % (Auto) Lymph % (Auto) [place] % (Auto) Eos % (Auto) Baso % (Auto) Lymph # (Auto) [place] # (Auto) Eos # (Auto) Baso # (Auto) Abs Immat Gran (auto) Absolute Neuts (auto) Absolute Nucleated RBC Nucleated RBC % (auto) Hold Purple Top PT 25.4 H D INR 2.2 H D-Dimer High Sensitivty VBG pH VBG pCO2 VBG pO2 VBG HCO3 VBG O2 Saturation VBG Base Excess Sodium 131 L Potassium 3.6 Chloride 104 Carbon Dioxide 20 L Anion Gap 11 L BUN 11 Creatinine 0.60 Estim Creat Clear Calc 125.7 Estimated GFR > 60 Random Glucose 123 H Lactic Acid Lactic Acid F/U @ 2Hr Lactic Acid F/U @ 4Hr Calcium 6.4 L Magnesium 1.2 L* Iron TIBC % Saturation Unsat Iron Binding Total Bilirubin 3.9 H Direct Bilirubin AST 90 H ALT 8 Alkaline Phosphatase 164 H Ammonia Total Creatine Kinase Troponin I High Sens C-Reactive Protein Total Protein 5.2 L Albumin 1.9 L Lipase Vitamin B12 Folate Procalcitonin 0.27 Urine Color Urine Appearance Urine pH Ur Specific [place] Urine Protein Urine Glucose (UA) Urine Ketones Urine Blood Urine Nitrite Ur Leukocyte Esterase Stool Occult Blood Urine Opiates Screen Ur Buprenorphine Scrn Ur Oxycodone Screen Urine Methadone Screen Urine Fentanyl Screen Ur Barbiturates Screen Ur Phencyclidine Scrn Ur Amphetamines Screen U Benzodiazepines Scrn Urine Cocaine Screen U Marijuana (THC) Screen Ethyl Alcohol COVID-19 (ISMAEL) COVID-19 Clin Com Blood Type Antibody Screen Crossmatch Imaging Radiology Impressions: ITS Impressions Chest X-Ray 04/16/25 15:07 IMPRESSION: No acute cardiopulmonary findings Electronically signed by: Neto Monterroso MD 04/16/2025 03:24 PM EDT RP Cervical Spine CT 04/16/25 15:17 IMPRESSION: Multilevel cervical spondylosis without acute fracture or trauma-related listhesis. Atherosclerosis disease. Acute on chronic saphenous sinus disease. Fleischner guidelines were followed. Electronically signed by: Marcelino Lemus MD 04/16/2025 03:54 PM EDT RP Head CT 04/16/25 15:17 IMPRESSION: 1. No acute intracranial abnormality. No fracture evident. 2. Moderate right maxillary and sphenoid paranasal sinus disease. Electronically signed by: Freddy Barahona MD 04/16/2025 03:50 PM EDT RP Mental Status Exam Mental Status Exam Level of Consciousness: Awake Affect Description: Blunted Speech Pattern: Clear Thought Content: positive for [place] Judgement: Fair Medications Medications Current Medications Acetaminophen (Acetaminophen 325 Mg Tablet) 650 mg PO Q6H PRN PRN Reason: Pain, Mild 1-3,fever,headache Calcium Carbonate (Calcium Carbonate 750 Mg Tab.Chew) 750 mg PO Q4H PRN PRN Reason: Heartburn Ceftriaxone Sodium (Ceftriaxone Sodium 1 Gm Vial) 1 gm IVPUSH Q24H COUNT INCLUDES THE [facility] Last Admin: 04/17/25 16:33 Dose: 1 gm Folic Acid (Folic Acid 1 Mg Tablet) 1 mg PO DAILY COUNT INCLUDES THE [facility] Stop: 04/20/25 08:59 Last Admin: 04/18/25 10:45 Dose: 1 mg Hydroxyzine HCl (Hydroxyzine Hcl 25 Mg Tablet) 25 mg PO Q6H PRN PRN Reason: Anxiety Thiamine HCl 100 mg/ Sodium (Chloride) 101 mls @ 202 mls/hr IV BID COUNT INCLUDES THE [facility] Stop: 04/19/25 20:59 Last Infusion: 04/18/25 10:36 Dose: Infused Metronidazole (Flagyl) 500 mg in 100 mls @ 100 mls/hr IV Q8H COUNT INCLUDES THE [facility] Last Infusion: 04/18/25 07:32 Dose: Infused Lactated Ringer's (Lr) 1,000 mls @ 100 mls/hr IVCONT .Q10H COUNT INCLUDES THE [facility] Last Admin: 04/18/25 10:41 Dose: 100 mls/hr Phytonadione 10 mg/ Sodium (Chloride) 51 mls @ 51 mls/hr IV ONCE ONE Stop: 04/18/25 11:53 Magnesium Hydroxide (Milk Of Magnesia 30 Ml Oral.Susp) 30 ml PO DAILY PRN PRN Reason: Constipation Magnesium Hydroxide (Milk Of Magnesia 30 Ml Oral.Susp) 30 ml PO DAILY PRN PRN Reason: Constipation Melatonin (Melatonin 3 Mg Tablet) 6 mg PO BEDTIME PRN PRN Reason: Insomnia Multivitamins/Vitamin C (Multivitamin Tablet) 1 tab PO DAILY COUNT INCLUDES THE [facility] Stop: 04/20/25 08:59 Last Admin: 04/18/25 10:45 Dose: 1 tab Naloxone HCl (Naloxone Hcl 0.4 Mg/Ml Vial) 0.04 mg IVPUSH Q5M PRN PRN Reason: Excessive sedation or RR < 8 Pantoprazole Sodium (Pantoprazole Sodium 40 Mg/10 Ml Vial) 40 mg IVPUSH BID@0630,1630 COUNT INCLUDES THE [facility] Last Admin: 04/18/25 06:05 Dose: 40 mg Pharmacy Consult (Consult Rx Etoh Phenob Im/Po) 1 each MISCELLANE ONCE PRN; Protocol PRN Reason: Consult order Phenobarbital (Phenobarbital 15 Mg Tablet) 45 mg PO BID COUNT INCLUDES THE [facility]; Protocol Stop: 04/18/25 21:01 Last Admin: 04/18/25 11:00 Dose: Not Given Phenobarbital (Phenobarbital 15 Mg Tablet) 15 mg PO BID COUNT INCLUDES THE [facility]; Protocol Stop: 04/20/25 21:01 Phenobarbital (Phenobarbital 15 Mg Tablet) 15 mg PO DAILY COUNT INCLUDES THE [facility]; Protocol Stop: 04/22/25 09:01 Sodium Chloride (0.9 % Sodium Chloride Flush 3 Ml Syringe) 3 ml IVFLUSH QSHIFT COUNT INCLUDES THE [facility] Last Admin: 04/18/25 08:08 Dose: Not Given Allergies Allergies Allergy/AdvReac Type Severity Reaction Status Date / Time No Known Allergies Allergy Verified 04/18/25 08:47 Assessment & Plan Assessment & Plan (1) Alcohol use disorder, severe, dependence: Status: Acute Code(s): F10.20 - Alcohol dependence, uncomplicated Assessment and Plan: withdrawal well managed with phenobarbital continue IV thiamine for now, can decrease dose/transition to PO after 5 days will continue to check in regarding AUD and treatment once more appropriate and patient can engage Total time managing care of this patient today __30__ minutes. [facility] Past Medical History Medical History Liver lesion Lesion of liver History of alcohol abuse Tobacco abuse Gout Tongue abnormality COVID-19 vaccine series completed Use of cane as ambulatory aid History of recent fall Hx of concussion Anxiety Wears dentures Primary osteoarthritis of right hip HTN (hypertension) Family History Family History Father No problems noted. Mother Cirrhosis Surgical History Surgical History History of total left hip arthroplasty Hx of colonoscopy History of fracture of leg History of arm fracture History of back surgery Social History Social History Household Members: Other Housing: Apartment Are you a primary health care administrator to a significant other at home: No Do you presently have visiting nurse or other home services: No Alcohol intake: former Patient Tobacco Use Status: Current everyday Tobacco user Tobacco use type: Cigarette Cigarette Packs Per Day: 1 Cigarettes Per Day: 20.0 Years Smoked: 46 e-Cigarette/Vaping Use: Never Used Second Hand Smoke Exposure: No Substance Use Type: Opiates service: No Current occupational status: retired Current occupation: rt handed
--- NOTE | 2025-04-18 14:24 | MHC.SL.SWA ---
Speech Pathologist Impression: Severe esophageal dysphagia Risk of Aspiration Due to: Dysphasia Diet Status: Liquid Consistency and Strategies for Safe Swallow: Liquid Intake Recommendation: NPO Liquid Intake Strategies: Solid Food Consistency: Dietary Recommendations: NPO Additional Modifications to Solid Foods: Oral Medication Intake: NPO Please contact the pharmacy regarding appropriate crushable or liquid drug formulations that are available whenever modified delivery is recommended. Compensatory Strategies and Precautions to be Taken for Safe Swallow: Supervision While Eating and Drinking for Safe Swallow: PO with [facility] Foods to Avoid: Tough, difficult to chew solids, dry crunchy textures. Swallowing Recommended Treatments: Compens. Strategy Educat. Recommendation for Speech: Inpatient Speech Therapy Comment: Pt made NPO d/t choking on NTL this morning after EGD. Pt seen for dysphagia re-evaluation, oral phase mildly impaired d/t weakness of lip closure, pharyngeal phase of swallow moderately impaired d/t delayed laryngeal elevation and esophageal phase evidencing profound dysphagia d/t inability to tolerate sips of liquids. Thins only trialed, pt took approximately 3 oz of fluid across 5 sips, coughing up thick yellow mucous after each trial. Pt reported he used to eat well but hasn't been able to for a while. Pt verbalized understanding of pending dilation procedure as noted in reports but did not show understanding of reason for NPO recommendation. Pt agreeable to having ice chips. [facility] assessment remains indicated s/p GI procedure; however, prognosis is guarded for safe resumption of PO d/t significance of current esophageal involvement. MD and RN notified of recommendations. Alternative nutrition likely indicated. Frequency/Duration: Date Range for Service Req: Timeline to reassess: Assistant Softball Coach Clinican/Clinical Fellow: No Supervisory Statement: I have reviewed and agree with the student/clinical fellow's documentation: N/A Speech Language Pathologist: Maya Todd M.S., [facility] [employer] [facility]
--- NOTE | 2025-04-18 15:35 | PC.NURSE ---
closed out 3 d/c IV infusions from 04/16 that were not completed by previous RNs.
[2025-04-18] MEDS: vancomycin/NS 2,000 MG/500 ML PLAST..BAG 250 MG IV (16:14)
[2025-04-19] VITALS (16 sets, daily range): BP systolic 82–115; BP diastolic 43–78; PULSE 68–102; RESP 14–22; TEMP 36.1–36.6; O2SAT 88–95; BMI 28.3
[2025-04-19] MEDS: metroNIDAZOLE/NS 500 MG/100 ML PIGGYBACK 100 MG IV ×3 (04:53→22:49)
[2025-04-19 06:59] LABS: Hematocrit 22.3 % (42.0-52.0); Hemoglobin 7.7 g/dl (14.0-18.0); Mean Corpuscular HGB Conc 34.5 g/dl (31.0-36.0); Mean Corpuscular Hemoglobin 31.7 pg (27.0-33.0); Mean Corpuscular Volume 91.8 fL (80.0-98.0); NRBC Abs Auto 0.000 X10*3/uL (0.0-0.012); NRBC Pct Auto 0.0 /100WBC (0.0-0.2); Red Blood Count 2.43 X10*6/uL (4.60-5.80); White Blood Count 6.6 X10*3/uL (4.8-10.8)
[2025-04-19 07:01] LABS: Platelet Count 86 X10*3/uL (160-400)
[2025-04-19 07:03] LABS: INTERNATIONAL NORM RATIO 2.0 (0.9-1.1); Prothrombin Time 23.0 SEC (10.9-12.4)
[2025-04-19 08:11] LABS: Alanine Aminotransferase 11 U/L (0-40); Albumin Level 1.8 g/dL (3.5-5.0); Alkaline Phosphatase 141 U/L (39-117); Anion Gap 11 (12-20); Aspartate Amino Transferase 75 U/L (5-37); Blood Urea Nitrogen 10 mg/dL (9-16); Calcium 6.5 mg/dL (8.4-10.2); Carbon Dioxide 21 mmol/L (22-29); Chloride 108 mmol/L (96-108); Creatinine Clr Calc Pharmacy 121.6; Estimated Glomerular Filt Rate > 60; Magnesium 1.3 mg/dL (1.6-2.6); Potassium 3.1 mmol/L (3.3-5.1); Sodium 137 mmol/L (135-145); Total Protein 4.8 g/dL (6.5-8.0)
--- NOTE | 2025-04-19 08:15 | HO.POSTANES ---
Post Anesthesia Evaluation Post Anesthesia Evaluation Date of Service: 04/19/25 Vital Signs: Vital Signs Temp Pulse Resp BP Pulse Ox O2 Del Method O2 Flow Rate 04/19/25 07:40 97.6 F 100 20 93/54 L 94 Oxymask 4.5 04/19/25 03:25 97.5 F 97 20 109/62 95 Oxymask 4 04/18/25 23:33 98.2 F 92 18 106/74 95 Oxymask 4 Anesthesia: Monitored Mental Status: Awake Pain Control: Satisfactory Nausea/Vomiting: None Hydration: Adequate Anesthesia-Related Issues: No Anes. Related Issues
[2025-04-19] MEDS: Magnesium Sulfate/H2O 2 GM/50 ML PIGGYBACK IV ×2 (08:33→20:51)
[2025-04-19] MEDS: Potassium Phosphate/NS 15 MMOL/250 ML PLAST..BAG 62.5 MMOL IV ×2 (10:15→15:51)
[2025-04-19] MEDS: 0.9 % Sodium Chloride Flush 3 ML SYRINGE IVFLUSH ×3 (10:20→20:57)
--- NOTE | 2025-04-19 10:30 | MHC.CLN ---
NUTRITION PATIENT IS NPO WITH SEVERE ESOPHAGEAL DYSPHAGIA. SCHEDULED FOR UPPER ENDOSCOPY WITH BALLOON DILITATION 04/19. REQUIRES NUTRITION/HYDRATION VIA PPN. REVIEWED LABS. COMMUNICATED WITH PHARMACY. START PPN TODAY. RECOMMEND PPN AT 45 ML PER HOUR, 46 G PROTEIN, 108 G DEXTROSE, 551 KCALS. REPLETE LYTES NEEDED. CHECK TRIGLYCERIDES. FOLLOW FOR PPN TOLERANCE AND DIET ADVANCEMENT. SEE CLINICAL NUTRITION ASSESSMENT 04/19/25.
[2025-04-19] MEDS: Thiamine HCL 100 MG in 0.9 % Sodium Chloride 100 ML 200 MG IV (10:54)
--- NOTE | 2025-04-19 12:47 | P.PNIM_ITS ---
Subjective Subjective Date of Service: 04/19/25 Interval History: thirsty; wants to drink water but NPO due to aspiration and need for dilation of esophageal web Review of Systems Review of Systems: Yes all other systems are reviewed and are negative Physical Exam 2 Vital Signs: Vital Signs: Last Vital Signs Temp 97.7 F 04/19/25 12:07 Pulse 92 04/19/25 12:07 Resp 18 04/19/25 12:07 BP 98/64 04/19/25 12:07 Pulse Ox 94 04/19/25 12:00 O2 Del Method Oxymask 04/19/25 12:00 O2 Flow Rate 4.5 04/19/25 12:00 BMI result Body Mass Index 28.3 Gen: in no acute distress HEENT: sclera icteric, moist mucus membranes Neck: supple Lungs: clear to auscultation bilaterally Heart: regular rate and rhythm, no murmurs Abd: soft, fluid wave present, nontender Ext: no edema Skin: warm/well-perfused Neuro: alert and oriented x3, no focal findings Psych: appropriate affect Objective Data Active Medications Acetaminophen (Acetaminophen 325 Mg Tablet) 650 mg PO Q6H PRN PRN Reason: Pain, Mild 1-3,fever,headache Calcium Carbonate (Calcium Carbonate 750 Mg Tab.Chew) 750 mg PO Q4H PRN PRN Reason: Heartburn Ceftriaxone Sodium (Ceftriaxone Sodium 1 Gm Vial) 1 gm IVPUSH Q24H [facility] Last Admin: 04/18/25 16:15 Dose: 1 gm Documented By: NICOLE Folic Acid (Folic Acid 1 Mg Tablet) 1 mg PO DAILY [facility] Stop: 04/20/25 08:59 Last Admin: 04/19/25 10:18 Dose: Not Given Documented By: ALISON Non-Admin Reason: NPO Hydroxyzine HCl (Hydroxyzine Hcl 25 Mg Tablet) 25 mg PO Q6H PRN PRN Reason: Anxiety Thiamine HCl 100 mg/ Sodium (Chloride) 101 mls @ 202 mls/hr IV BID [facility] Stop: 04/19/25 20:59 Last Infusion: 04/19/25 11:40 Dose: Infused Documented By: ANABEL Metronidazole (Flagyl) 500 mg in 100 mls @ 100 mls/hr IV Q8H [facility] Last Infusion: 04/19/25 06:11 Dose: Infused Documented By: RACHEL Lactated Ringer's (Lr) 1,000 mls @ 100 mls/hr IVCONT .Q10H [facility] Last Admin: 04/19/25 04:57 Dose: Not Given Documented By: RACHEL Non-Admin Reason: IV Running Vancomycin HCl 1,250 mg/ (Sodium Chloride) 250 mls @ 166.667 mls/hr IV Q12H [facility] Last Infusion: 04/19/25 06:28 Dose: Infused Documented By: RACHEL Magnesium Sulfate (Magnesium Sulfate/H2o) 2 gm in 50 mls @ 25 mls/hr IV BID [facility] Stop: 04/19/25 22:59 Last Infusion: 04/19/25 10:35 Dose: Infused Documented By: ANABEL Potassium Phosphate (Kphos) 15 mmol in 250 mls @ 62.5 mls/hr IV Q4H [facility] Stop: 04/19/25 16:29 Last Admin: 04/19/25 10:15 Dose: 62.5 mls/hr Documented By: ANABEL Nutrition (Parenteral) (Parenteral Nutrition) 1,080 mls @ 45 mls/hr IV .Q24H [facility]; Protocol Stop: 04/20/25 20:59 Magnesium Hydroxide (Milk Of Magnesia 30 Ml Oral.Susp) 30 ml PO DAILY PRN PRN Reason: Constipation Melatonin (Melatonin 3 Mg Tablet) 6 mg PO BEDTIME PRN PRN Reason: Insomnia Multivitamins/Vitamin C (Multivitamin Tablet) 1 tab PO DAILY [facility] Stop: 04/20/25 08:59 Last Admin: 04/19/25 10:22 Dose: Not Given Documented By: ALISON Non-Admin Reason: NPO Naloxone HCl (Naloxone Hcl 0.4 Mg/Ml Vial) 0.04 mg IVPUSH Q5M PRN PRN Reason: Excessive sedation or RR < 8 Pantoprazole Sodium (Pantoprazole Sodium 40 Mg/10 Ml Vial) 40 mg IVPUSH BID@0630,1630 [facility] Last Admin: 04/19/25 04:55 Dose: 40 mg Documented By: RACHEL Pharmacy Consult (Consult Rx Etoh Phenob Im/Po) 1 each MISCELLANE ONCE PRN; Protocol PRN Reason: Consult order Pharmacy Consult (Consult Rx Parenteral Nutrition Ordering) 1 each MISCELLANE DAILY PRN PRN Reason: Consult order Pharmacy Consult (Consult Rx Vancomycin Dosing) 1 each MISCELLANE DAILY PRN PRN Reason: Consult order Phenobarbital (Phenobarbital 15 Mg Tablet) 15 mg PO BID [facility]; Protocol Stop: 04/20/25 21:01 Last Admin: 04/19/25 10:22 Dose: Not Given Documented By: ALISON Non-Admin Reason: NPO Phenobarbital (Phenobarbital 15 Mg Tablet) 15 mg PO DAILY [facility]; Protocol Stop: 04/22/25 09:01 Sodium Chloride (0.9 % Sodium Chloride Flush 3 Ml Syringe) 3 ml IVFLUSH QSHIFT [facility] Last Admin: 04/19/25 10:20 Dose: 3 ml Documented By: ALISON Labs 04/19/25 05:28 04/19/25 05:28 Labs: Laboratory Results - last 24 hr 04/16/25 04/18/25 04/18/25 17:24 06:24 12:35 MCV MCH MCHC RDW Plt Count MPV Absolute Nucleated RBC Nucleated RBC % (auto) PT 25.4 H D INR 2.2 H Anion Gap Estim Creat Clear Calc Estimated GFR Random Glucose Calcium Phosphorus 1.6 L Magnesium Total Bilirubin AST ALT Alkaline Phosphatase Total Protein Albumin Blood Type A Negative Antibody Screen NEGATIVE Crossmatch See Detail 04/18/25 04/19/25 15:28 05:28 MCV 91.8 MCH 31.7 MCHC 34.5 RDW 20.7 H Plt Count 86 L D MPV 10.2 Absolute Nucleated RBC 0.000 Nucleated RBC % (auto) 0.0 PT 23.0 H INR 2.0 H Anion Gap 11 L Estim Creat Clear Calc 121.6 Estimated GFR > 60 Random Glucose 113 Calcium 6.5 L Phosphorus 1.4 L 1.6 L Magnesium 1.3 L* Total Bilirubin 3.2 H AST 75 H ALT 11 Alkaline Phosphatase 141 H Total Protein 4.8 L Albumin 1.8 L Blood Type Antibody Screen Crossmatch Microbiology Microbiology Results: Microbiology 04/16/25 15:00 Blood Culture - Final Blood - Venous Coag negative Staphylococcus 04/16/25 15:05 Blood Culture - Preliminary Blood - Venous No growth after 48 hours. Assessment and Plan (1) Alcohol withdrawal: Status: Acute (2) End stage liver disease: Status: Acute (3) Upper GI bleed: Status: Acute (4) Acute and chronic respiratory failure with hypoxia: Status: Acute (5) Pneumonia: Status: Acute Plan d4, 64yo M with AUD presenting after possible seizure likely due to withdrawal syndrome; found to be severely anemic and hypoxic acute blood loss anemia due to UGIB due to cirrhosis - transfused 2u pRBCs with appropriate response; continue to monitor CBC - EGD 04/[address] Saunders: EGD Findings:? * Esophagus:? There was an esophageal web in the upper 1/3 of the esophagus precluding passage of regular gastroscope. Scope was switche to slim scope which could easily traverse through the web. Severe esophagitis with ulceration at GE junction was noted from 35 cm to 30 cm. Flat varices were noted. * Stomach:? Diffuse congestion and erythema in mosaic pattern consistent with portal hypertensive gastropathy was noted in the whole stomach. Some areas with spontaneous oozing. Retroflexion from the cardia that showed Hill grade 3 hiatal hernia. * Duodenum:? Edema and congestion in the duodenum to the extent examined consistent with duodenopathy. ? EGD Impressions:? * Esophageal web * Grade D esophagitis * Hiatal hernia * Portal hypertensive gastropathy * Portal hypertensive duodenopathy - continue IV PPI - d/c octreotide, continue ceftriaxone for SBP prophylaxis x7d [cipro upon discharge] esophageal web - plan dilation today by Dr Saunders; will give FFP and platelets and also another dose of IV vitamin K possible GPC bacteremia - started on vancomycin 04/18 pending speciation multifocal PNA - continue ceftriaxone and metronidazole 04/17-, also vancomycin as above hypoMg: replete IV, recheck level tomorrow hypoK: replete IV, recheck level tomorrow hypoPO4: replete IV, recheck level tomorrow acute hypoxic respiratory failure: supplemental O2, wean as tolerated coagulopathy due to cirrhosis: monitor INR daily; given another 10mg of IV vit K today thrombocytopenia due to cirrhosis: monitor CBC daily AUD with withdrawal seizure: phenobarbital taper, thiamine, folate, Addiction Medicine consultation hypoNa: chronic, baseline level likely due to cirrhosis VTE ppx: SCDs, no heparin given GIB dispo: TBD In my clinical judgment, the patient requires continued inpatient hospitalization for the following reasons: EGD/dilation, NPO Total time managing care of this patient today: 55 minutes. Quality Stroke Does the patient have a stroke diagnosis?: No VTE Prior VTE?: No VTE Risk Level:: Medical - moderate - high VTE Device Contraindication: N/A - Device Ordered VTE Drug Contraindication: N/A - Med Ordered
--- NOTE | 2025-04-19 13:14 | MHC.SHP ---
Pre-Procedural Eval Section A - 24 Hr Update-Section A only Date of Service: 04/19/25 The patient is an INPATIENT: Yes The patient has been examined within 24 hours of the surgical procedure. The History & Physical has been completed within 30 days and I have reviewed it.: Yes Section B - Complete if H&P > 30 days Chief Complaint: dysphagia, esophageal stricture Allergies: Allergies Allergy/AdvReac Type Severity Reaction Status Date / Time No Known Allergies Allergy Verified 04/18/25 08:47 Plan Diagnosis/Plan: Unchanged I have reviewed the history and physical and performed a pertinent physical examination on my patient. No changes have occurred unless specified. Time Spent With Patient Time: Total time managing care of this patient today ____ minutes.
[2025-04-19 13:32] LABS: OBS1 POSITIVE (NEGATIVE)
[2025-04-19 13:33] LABS: OBS Int Ctl Valid YES
--- NOTE | 2025-04-19 13:34 | MHC.CM.PN ---
Addendum entered by Loli Coker 04/19/25 15:04: Per Rn, Patient has still not returned to the floor from his procedure. Original Note: PT is recommending STR; CM attempted to meet with Patient to discuss dc planning and a HCP but he is out of his room, at a procedure. CM will follow.
--- NOTE | 2025-04-19 13:41 | P.CONAN_ITS ---
Documented by User: Keturah Castillo NP 04/19/25 11:35 HPI - Anesthesia Eval Consult details Narrative: 64 yr old male for upper endoscopy with balloon dilitation. s/p upper endoscopy 04/18 with TIVA INR 2.0 today 04/19/25: received Vit K, will get FFP Thrombocytopenia: 86 today 04/19, plts ordered to be transfused. Hypokalemia: K+ 3.1, receiving IV K+ Hypomagnesia: 1.3, receiving IV mag Acute blood loss anemia: H/H 7.7/22.3; received 2 units PRBCs On oxygen mask, 4.5 liters, sats 94% PMFSH Active Problems Active Problems: All Active Problems (Updated 04/18/25 @ 09:36 by Yoselin Saunders MD) Malnourished (Acute) Frailty (Acute) Cirrhosis (Acute) Pneumonia (Acute) Acute and chronic respiratory failure with hypoxia (Acute) Upper GI bleed (Acute) End stage liver disease (Acute) Anemia (Acute) Acidosis, lactic (Acute) Acute on chronic anemia (Acute) Prolonged QT interval (Acute) Alcohol withdrawal (Acute) Alcohol use disorder, severe, dependence (Acute) Tubular adenoma of colon (Acute) Screening PSA (prostate specific antigen) (Acute) Tachycardia (Acute) Chronic left hip pain (Acute) Pre-op evaluation (Acute) Status post total hip replacement, left (Acute) Physical exam (Acute) Screening for colon cancer (Acute) Smoker (Acute) Past Medical History Medical History Liver lesion Lesion of liver History of alcohol abuse Tobacco abuse Gout Tongue abnormality COVID-19 vaccine series completed Use of cane as ambulatory aid History of recent fall Hx of concussion Anxiety Wears dentures Primary osteoarthritis of right hip HTN (hypertension) Family History Family History Father No problems noted. Mother Cirrhosis Family history of problems with anesthesia: No Surgical History Surgical History History of total left hip arthroplasty Hx of colonoscopy History of fracture of leg History of arm fracture History of back surgery History of Problems with Anesthesia: No Social History Social History Household Members: Other Housing: Apartment Are you a primary point of care specialist to a significant other at home: No Do you presently have visiting nurse or other home services: No Alcohol intake: former Patient Tobacco Use Status: Current everyday Tobacco user Tobacco use type: Cigarette Cigarette Packs Per Day: 1 Cigarettes Per Day: 20.0 Years Smoked: 46 e-Cigarette/Vaping Use: Never Used Second Hand Smoke Exposure: No Substance Use Type: Opiates service: No Current occupational status: retired Current occupation: rt handed Meds Allergies Allergy/AdvReac Type Severity Reaction Status Date / Time No Known Allergies Allergy Verified 04/18/25 08:47 Active Medications: Current Medications Acetaminophen (Acetaminophen 325 Mg Tablet) 650 mg PO Q6H PRN PRN Reason: Pain, Mild 1-3,fever,headache Calcium Carbonate (Calcium Carbonate 750 Mg Tab.Chew) 750 mg PO Q4H PRN PRN Reason: Heartburn Ceftriaxone Sodium (Ceftriaxone Sodium 1 Gm Vial) 1 gm IVPUSH Q24H [facility] Last Admin: 04/18/25 16:15 Dose: 1 gm Folic Acid (Folic Acid 1 Mg Tablet) 1 mg PO DAILY [facility] Stop: 04/20/25 08:59 Last Admin: 04/19/25 10:18 Dose: Not Given Hydroxyzine HCl (Hydroxyzine Hcl 25 Mg Tablet) 25 mg PO Q6H PRN PRN Reason: Anxiety Thiamine HCl 100 mg/ Sodium (Chloride) 101 mls @ 202 mls/hr IV BID [facility] Stop: 04/19/25 20:59 Last Admin: 04/19/25 10:54 Dose: 200 mls/hr Metronidazole (Flagyl) 500 mg in 100 mls @ 100 mls/hr IV Q8H [facility] Last Infusion: 04/19/25 06:11 Dose: Infused Lactated Ringer's (Lr) 1,000 mls @ 100 mls/hr IVCONT .Q10H [facility] Last Admin: 04/19/25 04:57 Dose: Not Given Vancomycin HCl 1,250 mg/ (Sodium Chloride) 250 mls @ 166.667 mls/hr IV Q12H [facility] Last Infusion: 04/19/25 06:28 Dose: Infused Magnesium Sulfate (Magnesium Sulfate/H2o) 2 gm in 50 mls @ 25 mls/hr IV BID [facility] Stop: 04/19/25 22:59 Last Infusion: 04/19/25 10:35 Dose: Infused Potassium Phosphate (Kphos) 15 mmol in 250 mls @ 62.5 mls/hr IV Q4H [facility] Stop: 04/19/25 16:29 Last Admin: 04/19/25 10:15 Dose: 62.5 mls/hr Nutrition (Parenteral) (Parenteral Nutrition) 1,080 mls @ 45 mls/hr IV .Q24H [facility]; Protocol Stop: 04/20/25 20:59 Magnesium Hydroxide (Milk Of Magnesia 30 Ml Oral.Susp) 30 ml PO DAILY PRN PRN Reason: Constipation Melatonin (Melatonin 3 Mg Tablet) 6 mg PO BEDTIME PRN PRN Reason: Insomnia Multivitamins/Vitamin C (Multivitamin Tablet) 1 tab PO DAILY [facility] Stop: 04/20/25 08:59 Last Admin: 04/19/25 10:22 Dose: Not Given Naloxone HCl (Naloxone Hcl 0.4 Mg/Ml Vial) 0.04 mg IVPUSH Q5M PRN PRN Reason: Excessive sedation or RR < 8 Pantoprazole Sodium (Pantoprazole Sodium 40 Mg/10 Ml Vial) 40 mg IVPUSH BID@0630,1630 [facility] Last Admin: 04/19/25 04:55 Dose: 40 mg Pharmacy Consult (Consult Rx Etoh Phenob Im/Po) 1 each MISCELLANE ONCE PRN; Protocol PRN Reason: Consult order Pharmacy Consult (Consult Rx Parenteral Nutrition Ordering) 1 each MISCELLANE DAILY PRN PRN Reason: Consult order Pharmacy Consult (Consult Rx Vancomycin Dosing) 1 each MISCELLANE DAILY PRN PRN Reason: Consult order Phenobarbital (Phenobarbital 15 Mg Tablet) 15 mg PO BID [facility]; Protocol Stop: 04/20/25 21:01 Last Admin: 04/19/25 10:22 Dose: Not Given Phenobarbital (Phenobarbital 15 Mg Tablet) 15 mg PO DAILY [facility]; Protocol Stop: 04/22/25 09:01 Sodium Chloride (0.9 % Sodium Chloride Flush 3 Ml Syringe) 3 ml IVFLUSH QSHIFT [facility] Last Admin: 04/19/25 10:20 Dose: 3 ml Home Medications ?Medication ?Instructions ?Recorded ?Confirmed ?Last Taken ?Type No Known Home Meds 04/16/25 04/16/25 Un known History Exam Height,Weight and Vital Signs: Height 5 ft 7 in Weight 81.9 kg Last Vital Signs Temp 97.6 F 04/19/25 07:40 Pulse 100 04/19/25 07:40 Resp 20 04/19/25 07:40 BP 93/54 L 04/19/25 07:40 Pulse Ox 94 04/19/25 07:40 O2 Del Method Oxymask 04/19/25 07:40 O2 Flow Rate 4.5 04/19/25 07:40 Pertinent Lab Results Pertinent Lab Results: Laboratory Tests 04/16/25 04/16/25 04/16/25 15:00 15:01 17:24 WBC 11.5 H RBC 2.23 L Hgb 7.2 L D Hct 21.2 L D MCV 95.1 MCH 32.3 MCHC 34.0 RDW 24.1 H Plt Count 162 D MPV 10.0 Immature Gran % (Auto) 1.0 H Neut % (Auto) 79.9 H Lymph % (Auto) 10.4 L Kleberg % (Auto) 8.5 Eos % (Auto) 0.1 Baso % (Auto) 0.1 Lymph # (Auto) 1.2 Kleberg # (Auto) 1.0 Eos # (Auto) 0.0 Baso # (Auto) 0.0 Abs Immat Gran (auto) 0.12 H Absolute Neuts (auto) 9.2 H Absolute Nucleated RBC 0.020 H Nucleated RBC % (auto) 0.2 Hold Purple Top SEE NOTE PT 36.6 H INR 3.2 H D D-Dimer High Sensitivty VBG pH VBG pCO2 VBG pO2 VBG HCO3 VBG O2 Saturation VBG Base Excess Sodium 130 L 130 L Potassium 3.0 L 2.8 L* Chloride 93 L 95 L Carbon Dioxide 20 L 17 L Anion Gap 20 21 H BUN 12 11 Creatinine 0.75 0.61 Estim Creat Clear Calc 91.8 112.8 Estimated GFR > 60 > 60 Random Glucose 128 H 127 H Lactic Acid 11.3 H* Cancelled Lactic Acid F/U @ 2Hr 12.4 H* Lactic Acid F/U @ 4Hr Calcium 6.8 L D 6.5 L Phosphorus Magnesium 0.9 L* Iron TIBC % Saturation Unsat Iron Binding Total Bilirubin 3.2 H Direct Bilirubin 1.6 H AST 79 H ALT 10 Alkaline Phosphatase 217 H Ammonia Total Creatine Kinase 45 Troponin I High Sens 3.2 C-Reactive Protein 1.19 H Total Protein 6.1 L Albumin 2.3 L Lipase 17 Vitamin B12 Folate Procalcitonin Urine Color Urine Appearance Urine pH Ur Specific Crawford Urine Protein Urine Glucose (UA) Urine Ketones Urine Blood Urine Nitrite Ur Leukocyte Esterase Stool Occult Blood Urine Opiates Screen Ur Buprenorphine Scrn Ur Oxycodone Screen Urine Methadone Screen Urine Fentanyl Screen Ur Barbiturates Screen Ur Phencyclidine Scrn Ur Amphetamines Screen U Benzodiazepines Scrn Urine Cocaine Screen U Marijuana (THC) Screen Ethyl Alcohol 11 COVID-19 (ISMAEL) Negative COVID-19 Clin Com See Note Blood Type A Negative Antibody Screen NEGATIVE Crossmatch See Detail 04/16/25 04/16/25 04/17/25 17:52 19:58 02:50 WBC 11.8 H RBC 2.00 L Hgb 6.4 L* Hct 18.9 L* MCV 94.5 MCH 32.0 MCHC 33.9 RDW 24.2 H Plt Count 158 L MPV 9.7 Immature Gran % (Auto) 0.5 H Neut % (Auto) 70.5 Lymph % (Auto) 20.3 Kleberg % (Auto) 7.2 Eos % (Auto) 1.4 Baso % (Auto) 0.1 Lymph # (Auto) 2.4 Kleberg # (Auto) 0.9 Eos # (Auto) 0.2 Baso # (Auto) 0.0 Abs Immat Gran (auto) 0.06 H Absolute Neuts (auto) 8.3 Absolute Nucleated RBC 0.020 H Nucleated RBC % (auto) 0.2 Hold Purple Top PT INR D-Dimer High Sensitivty 454 VBG pH VBG pCO2 VBG pO2 VBG HCO3 VBG O2 Saturation VBG Base Excess Sodium 129 L 130 L Potassium 3.1 L 3.3 Chloride 97 101 Carbon Dioxide 20 L 17 L Anion Gap 15 15 BUN 11 12 Creatinine 0.64 0.62 Estim Creat Clear Calc 107.5 111.0 Estimated GFR > 60 > 60 Random Glucose 206 H 101 Lactic Acid 5.4 H* Lactic Acid F/U @ 2Hr Lactic Acid F/U @ 4Hr 9.0 H* Calcium 6.4 L 6.6 L Phosphorus Magnesium 1.8 1.5 L Iron 135 TIBC 160 L % Saturation 84 H Unsat Iron Binding < 25 Total Bilirubin 2.3 H Direct Bilirubin AST 78 H ALT 9 Alkaline Phosphatase 198 H Ammonia 71 H Total Creatine Kinase Troponin I High Sens C-Reactive Protein Total Protein 5.8 L Albumin 2.1 L Lipase Vitamin B12 Folate Procalcitonin 0.28 Urine Color Dark Yellow Urine Appearance Clear Urine pH 6.5 Ur Specific Crawford 1.010 Urine Protein Trace Urine Glucose (UA) Negative Urine Ketones Negative Urine Blood Negative Urine Nitrite Negative Ur Leukocyte Esterase Negative Stool Occult Blood Urine Opiates Screen Not Detected Ur Buprenorphine Scrn Not Detected Ur Oxycodone Screen Not Detected Urine Methadone Screen Not Detected Urine Fentanyl Screen Not Detected Ur Barbiturates Screen POSITIVE H Ur Phencyclidine Scrn Not Detected Ur Amphetamines Screen Not Detected U Benzodiazepines Scrn Not Detected Urine Cocaine Screen Not Detected U Marijuana (THC) Screen Not Detected Ethyl Alcohol COVID-19 (ISMAEL) COVID-19 Clin Com Blood Type Antibody Screen Crossmatch 04/17/25 04/17/25 04/17/25 04:27 05:05 06:16 WBC RBC Hgb Hct MCV MCH MCHC RDW Plt Count MPV Immature Gran % (Auto) Neut % (Auto) Lymph % (Auto) Kleberg % (Auto) Eos % (Auto) Baso % (Auto) Lymph # (Auto) Kleberg # (Auto) Eos # (Auto) Baso # (Auto) Abs Immat Gran (auto) Absolute Neuts (auto) Absolute Nucleated RBC Nucleated RBC % (auto) Hold Purple Top PT INR D-Dimer High Sensitivty VBG pH 7.50 H VBG pCO2 28 VBG pO2 178 VBG HCO3 22 VBG O2 Saturation TNP VBG Base Excess -0.5 Sodium Potassium Chloride Carbon Dioxide Anion Gap BUN Creatinine Estim Creat Clear Calc Estimated GFR Random Glucose Lactic Acid Lactic Acid F/U @ 2Hr 4.3 H* Lactic Acid F/U @ 4Hr Calcium Phosphorus Magnesium Iron TIBC % Saturation Unsat Iron Binding Total Bilirubin Direct Bilirubin AST ALT Alkaline Phosphatase Ammonia Total Creatine Kinase Troponin I High Sens C-Reactive Protein Total Protein Albumin Lipase Vitamin B12 1200 H Folate 3.4 L Procalcitonin Urine Color Urine Appearance Urine pH Ur Specific Crawford Urine Protein Urine Glucose (UA) Urine Ketones Urine Blood Urine Nitrite Ur Leukocyte Esterase Stool Occult Blood Urine Opiates Screen Ur Buprenorphine Scrn Ur Oxycodone Screen Urine Methadone Screen Urine Fentanyl Screen Ur Barbiturates Screen Ur Phencyclidine Scrn Ur Amphetamines Screen U Benzodiazepines Scrn Urine Cocaine Screen U Marijuana (THC) Screen Ethyl Alcohol COVID-19 (ISMAEL) COVID-19 Clin Com Blood Type Antibody Screen Crossmatch 04/17/25 04/17/25 04/17/25 07:59 11:04 13:40 WBC RBC Hgb 9.2 L D Hct 25.9 L D MCV MCH MCHC RDW Plt Count MPV Immature Gran % (Auto) Neut % (Auto) Lymph % (Auto) Kleberg % (Auto) Eos % (Auto) Baso % (Auto) Lymph # (Auto) Kleberg # (Auto) Eos # (Auto) Baso # (Auto) Abs Immat Gran (auto) Absolute Neuts (auto) Absolute Nucleated RBC Nucleated RBC % (auto) Hold Purple Top SEE NOTE PT INR D-Dimer High Sensitivty VBG pH VBG pCO2 VBG pO2 VBG HCO3 VBG O2 Saturation VBG Base Excess Sodium Potassium Chloride Carbon Dioxide Anion Gap BUN Creatinine Estim Creat Clear Calc Estimated GFR Random Glucose Lactic Acid Lactic Acid F/U @ 2Hr Lactic Acid F/U @ 4Hr 2.5 H* Calcium Phosphorus Magnesium Iron TIBC % Saturation Unsat Iron Binding Total Bilirubin Direct Bilirubin AST ALT Alkaline Phosphatase Ammonia Total Creatine Kinase Troponin I High Sens C-Reactive Protein Total Protein Albumin Lipase Vitamin B12 Folate Procalcitonin Urine Color Urine Appearance Urine pH Ur Specific Crawford Urine Protein Urine Glucose (UA) Urine Ketones Urine Blood Urine Nitrite Ur Leukocyte Esterase Stool Occult Blood NEGATIVE Urine Opiates Screen Ur Buprenorphine Scrn Ur Oxycodone Screen Urine Methadone Screen Urine Fentanyl Screen Ur Barbiturates Screen Ur Phencyclidine Scrn Ur Amphetamines Screen U Benzodiazepines Scrn Urine Cocaine Screen U Marijuana (THC) Screen Ethyl Alcohol COVID-19 (ISMAEL) COVID-19 Clin Com Blood Type Antibody Screen Crossmatch 04/18/25 04/18/25 04/18/25 06:24 12:35 15:28 WBC RBC Hgb 8.0 L Hct 22.6 L MCV MCH MCHC RDW Plt Count MPV Immature Gran % (Auto) Neut % (Auto) Lymph % (Auto) Kleberg % (Auto) Eos % (Auto) Baso % (Auto) Lymph # (Auto) Kleberg # (Auto) Eos # (Auto) Baso # (Auto) Abs Immat Gran (auto) Absolute Neuts (auto) Absolute Nucleated RBC Nucleated RBC % (auto) Hold Purple Top PT 25.4 H D INR 2.2 H D-Dimer High Sensitivty VBG pH VBG pCO2 VBG pO2 VBG HCO3 VBG O2 Saturation VBG Base Excess Sodium 131 L Potassium 3.6 Chloride 104 Carbon Dioxide 20 L Anion Gap 11 L BUN 11 Creatinine 0.60 Estim Creat Clear Calc 125.7 Estimated GFR > 60 Random Glucose 123 H Lactic Acid Lactic Acid F/U @ 2Hr Lactic Acid F/U @ 4Hr Calcium 6.4 L Phosphorus 1.6 L 1.4 L Magnesium 1.2 L* Iron TIBC % Saturation Unsat Iron Binding Total Bilirubin 3.9 H Direct Bilirubin AST 90 H ALT 8 Alkaline Phosphatase 164 H Ammonia Total Creatine Kinase Troponin I High Sens C-Reactive Protein Total Protein 5.2 L Albumin 1.9 L Lipase Vitamin B12 Folate Procalcitonin 0.27 Urine Color Urine Appearance Urine pH Ur Specific Crawford Urine Protein Urine Glucose (UA) Urine Ketones Urine Blood Urine Nitrite Ur Leukocyte Esterase Stool Occult Blood Urine Opiates Screen Ur Buprenorphine Scrn Ur Oxycodone Screen Urine Methadone Screen Urine Fentanyl Screen Ur Barbiturates Screen Ur Phencyclidine Scrn Ur Amphetamines Screen U Benzodiazepines Scrn Urine Cocaine Screen U Marijuana (THC) Screen Ethyl Alcohol COVID-19 (ISMAEL) COVID-19 Clin Com Blood Type Antibody Screen Crossmatch 04/19/25 05:28 WBC 6.6 RBC 2.43 L D Hgb 7.7 L Hct 22.3 L MCV 91.8 MCH 31.7 MCHC 34.5 RDW 20.7 H Plt Count 86 L D MPV 10.2 Immature Gran % (Auto) Neut % (Auto) Lymph % (Auto) Kleberg % (Auto) Eos % (Auto) Baso % (Auto) Lymph # (Auto) Kleberg # (Auto) Eos # (Auto) Baso # (Auto) Abs Immat Gran (auto) Absolute Neuts (auto) Absolute Nucleated RBC 0.000 Nucleated RBC % (auto) 0.0 Hold Purple Top PT 23.0 H INR 2.0 H D-Dimer High Sensitivty VBG pH VBG pCO2 VBG pO2 VBG HCO3 VBG O2 Saturation VBG Base Excess Sodium 137 Potassium 3.1 L Chloride 108 Carbon Dioxide 21 L Anion Gap 11 L BUN 10 Creatinine 0.62 Estim Creat Clear Calc 121.6 Estimated GFR > 60 Random Glucose 113 Lactic Acid Lactic Acid F/U @ 2Hr Lactic Acid F/U @ 4Hr Calcium 6.5 L Phosphorus 1.6 L Magnesium 1.3 L* Iron TIBC % Saturation Unsat Iron Binding Total Bilirubin 3.2 H Direct Bilirubin AST 75 H ALT 11 Alkaline Phosphatase 141 H Ammonia Total Creatine Kinase Troponin I High Sens C-Reactive Protein Total Protein 4.8 L Albumin 1.8 L Lipase Vitamin B12 Folate Procalcitonin Urine Color Urine Appearance Urine pH Ur Specific Crawford Urine Protein Urine Glucose (UA) Urine Ketones Urine Blood Urine Nitrite Ur Leukocyte Esterase Stool Occult Blood Urine Opiates Screen Ur Buprenorphine Scrn Ur Oxycodone Screen Urine Methadone Screen Urine Fentanyl Screen Ur Barbiturates Screen Ur Phencyclidine Scrn Ur Amphetamines Screen U Benzodiazepines Scrn Urine Cocaine Screen U Marijuana (THC) Screen Ethyl Alcohol COVID-19 (ISMAEL) COVID-19 Clin Com Blood Type Antibody Screen Crossmatch Assessment and Plan Final Anesthetic Review Family History of Problems with Anesthesia: No History of Problems with Anesthesia: No Documented by User: Danielle Hare DO 04/19/25 13:44 HPI - Anesthesia Eval Consult details Narrative: 64 yr old male for upper endoscopy with balloon dilitation. s/p upper endoscopy 04/18 with TIVA INR 2.0 today 04/19/25: received Vit K, will get FFP Thrombocytopenia: 86 today 04/19, plts ordered to be transfused. Hypokalemia: K+ 3.1, receiving IV K+ Hypomagnesia: 1.3, receiving IV mag Acute blood loss anemia: H/H 7.7/22.3; received 2 units PRBCs On oxygen mask, 4.5 liters, sats 94% In pre-op today (04/19/25), currently receiving platelets and FFP. [facility] Past Medical History Medical History Liver lesion Lesion of liver History of alcohol abuse Tobacco abuse Gout Tongue abnormality COVID-19 vaccine series completed Use of cane as ambulatory aid History of recent fall Hx of concussion Anxiety Wears dentures Primary osteoarthritis of right hip HTN (hypertension) Family History Family History Father No problems noted. Mother Cirrhosis Family history of problems with anesthesia: No Surgical History Surgical History History of total left hip arthroplasty Hx of colonoscopy History of fracture of leg History of arm fracture History of back surgery History of Problems with Anesthesia: No Social History Social History Household Members: Other Housing: Apartment Are you a primary point of care specialist to a significant other at home: No Do you presently have visiting nurse or other home services: No Alcohol intake: former Patient Tobacco Use Status: Current everyday Tobacco user Tobacco use type: Cigarette Cigarette Packs Per Day: 1 Cigarettes Per Day: 20.0 Years Smoked: 46 e-Cigarette/Vaping Use: Never Used Second Hand Smoke Exposure: No Substance Use Type: Opiates service: No Current occupational status: retired Current occupation: rt handed Meds Allergies Allergy/AdvReac Type Severity Reaction Status Date / Time No Known Allergies Allergy Verified 04/18/25 08:47 Home Medications ?Medication ?Instructions ?Recorded ?Confirmed ?Last Taken ?Type No Known Home Meds 04/16/25 04/16/25 Un known History Exam Exam Date and Time: 04/19/25 1342 Airway Mallampati Class: III (small mouth opening) TM Dist: <=3cm Neck ROM: Limited Loose/Missing/Broken Teeth: Yes (edentulous) Heart: S1S2 Lungs: Diminished bilaterally Assessment and Plan Assessment Anesthesia Assessment: Anesthesia Plan Discussed and Chart Reviewed Final Anesthetic Review Family History of Problems with Anesthesia: No History of Problems with Anesthesia: No NPO: Yes ASA Class: III Final Preanesthetic Review: No Changes in Pt Med Stat, Meds/Allgs Chart Reviewed, Consent Obtained/Reviewed and Anes Risks/Benef Reviewed Patient Risk: Intermediate Procedure Risk: Low Anesthetic Plan Anesthetic Plan: MAC: and Agree w/ Assess. and Plan Disposition: Standard PACU
--- NOTE | 2025-04-19 13:59 | MHC.SLORD ---
Speech Language Pathology Order Status: Patient NPO today for esophageal dilation procedure. Please resume recommended diet (puree/nectar thick) when appropriate post procedure. [employer] will follow up/re-eval patient 04/20/25.
[2025-04-19 14:33] LABS: CDiff Gene PCR NEGATIVE (Negative)
--- NOTE | 2025-04-19 14:48 | P.OP_ITS ---
Operative Note Operative Note Date of Service: 04/19/25 Narrative: Procedure: Esophagogastroduodenoscopy Endoscopist: Yoselin Saunders MD Indication: Dysphagia Anesthesia Provider: Marco A Fontanez CRNA Anesthesia Type: MAC Instrument: [id number] ?? EGD Procedure:?? The procedure, indications, preparation and potential complications were reviewed with the patient, who indicated understanding and gave written informed consent to proceed. A physical exam was performed. The endoscope was introduced through the mouth, and advanced to the second part of duodenum. The mucosa was carefully examined on slow withdrawal of the endoscope. The patient tolerated the procedure well. There were no immediate complications.? ? EGD Findings:? * Esophagus:? There was an esophageal web in the upper 1/3 of the esophagus. Slim scope could easily traverse through the web. Severe esophagitis with ulceration at GE junction was noted from 35 cm to 30 cm with spontaneous oozing. Flat varices were noted. * Stomach:? Diffuse congestion and erythema in mosaic pattern consistent with portal hypertensive gastropathy was noted in the whole stomach. Some areas with spontaneous oozing. Retroflexion from the cardia that showed Hill grade 3 hiatal hernia. * Duodenum:? Edema and congestion in the duodenum to the extent examined consistent with duodenopathy. Additional intervention: Soft tipped Savary wire was introduced through the biopsy channel of the gastroscope and advanced to the antrum. ?The gastroscope was then backed out. ?Savary Shahram bougie was advanced over the guidewire and the esophagus was dilated from 12 to 12.8 mm to with resistance felt. ?On relook, small heme with superficial tear noted at the upper esophagus confirming successful dilation. ? ? EGD Impressions:? * Esophageal web (dilation) * Grade D esophagitis * Flat varices * Hiatal hernia * Portal hypertensive gastropathy * Portal hypertensive duodenopathy ?? Recommendations:?? * Continue IV PPI therapy. * Can start diet as per ST recommendations * Pt will need repeat EGD for updilation which can be arranged as outpatient. * Avoid NSAIDs and alcohol. * Please also obtain dedicated US Abd for liver for HCC screening. Above has been reviewed with the patient.
[2025-04-19] MEDS: Parenteral Nutrition 1,080 ML 45 ML IV (20:51)
[2025-04-20] VITALS (21 sets, daily range): BP systolic 80–112; BP diastolic 46–77; PULSE 81–109; RESP 18–30; TEMP 36.1–36.8; O2SAT 88–98
[2025-04-20] MEDS: metroNIDAZOLE/NS 500 MG/100 ML PIGGYBACK 100 MG IV ×3 (05:06→22:32)
[2025-04-20 07:09] LABS: Hemoglobin 7.1 g/dl (14.0-18.0); Mean Corpuscular HGB Conc 34.3 g/dl (31.0-36.0); Mean Corpuscular Hemoglobin 32.0 pg (27.0-33.0); Mean Corpuscular Volume 93.2 fL (80.0-98.0); NRBC Abs Auto 0.040 X10*3/uL (0.0-0.012); NRBC Pct Auto 0.5 /100WBC (0.0-0.2); Red Blood Count 2.22 X10*6/uL (4.60-5.80); White Blood Count 8.1 X10*3/uL (4.8-10.8)
[2025-04-20 07:23] LABS: Alanine Aminotransferase 10 U/L (0-40); Albumin Level 1.9 g/dL (3.5-5.0); Alkaline Phosphatase 123 U/L (39-117); Anion Gap 10 (12-20); Aspartate Amino Transferase 81 U/L (5-37); Blood Urea Nitrogen 10 mg/dL (9-16); Calcium 6.9 mg/dL (8.4-10.2); Carbon Dioxide 23 mmol/L (22-29); Chloride 108 mmol/L (96-108); Creatinine Clr Calc Pharmacy 69.8; Estimated Glomerular Filt Rate > 60; Magnesium 2.0 mg/dL (1.6-2.6); Potassium 3.3 mmol/L (3.3-5.1); Sodium 138 mmol/L (135-145); Total Protein 5.0 g/dL (6.5-8.0); Triglycerides 44 mg/dL (<150)
[2025-04-20 07:29] LABS: Procalcitonin 0.43 ng/mL
--- NOTE | 2025-04-20 07:30 | PC.NURSE ---
pt on 10L oxymask, increased to 12L by this RN. pt desating to low 80s, tachypneic, abd breathing. RT called to bedside. pt placed on HFNC. notifed. ABG obtained prior HFNC. see new orders
[2025-04-20 07:43] LABS: Hematocrit 20.7 % (42.0-52.0); Platelet Count 98 X10*3/uL (160-400)
[2025-04-20 07:51] LABS: ABG HCO3 18 mmol/L (22-26); ABG O2 % Saturation 63.0 %
[2025-04-20 08:18] LABS: INTERNATIONAL NORM RATIO 1.9 (0.9-1.1); Prothrombin Time 21.3 SEC (10.9-12.4)
--- NOTE | 2025-04-20 08:18 | HO.POSTANES ---
Post Anesthesia Evaluation Post Anesthesia Evaluation Date of Service: 04/20/25 Vital Signs: Vital Signs Temp Pulse Resp BP Pulse Ox O2 Del Method O2 Flow Rate 04/20/25 07:49 18 04/20/25 07:42 97.1 F 92 18 99/60 92 Oxymask 11 04/20/25 02:59 97.0 F 83 18 96/53 L 95 Nasal Cannula 6 04/19/25 23:22 97.3 F 68 18 100/59 L 88 L Nasal Cannula 6 04/19/25 20:45 97.9 F 87 19 105/57 L Anesthesia: Monitored Mental Status: Awake Pain Control: Satisfactory Nausea/Vomiting: None Hydration: Adequate Anesthesia-Related Issues: No Anes. Related Issues
--- NOTE | 2025-04-20 09:20 | MHC.CLN ---
F/U TO CONTINUE NUTRITION/HYDRATION VIA PPN REVIEWED LABS COMMUNICATED WITH PHARMACY RECOMMEND INCREASING PPN TO MAX GOAL RATE OF 80ML PER HOUR WITH 85G LIPIDS TO PROVIDE 1829 TOTAL KCALS (27KCALS/KG), 82G PROTEIN (1.2G/KG), 192G DEXTROSE REPLETE LYTES NEEDED FOLLOW FOR PPN TOLERANCE AND DIET ADVANCEMENT GOAL FOR PT TO REMAIN AT MAX GOAL RATE OF PPN THRU [address] CAN BE REACHED VIA TIGER CONNECT DURING OFF HOURS IF NEEDED
--- NOTE | 2025-04-20 09:48 | PC.NURSE ---
Addendum entered by Ashlyn Crowder RN 04/20/25 15:42: This RN at bedside during bedside PICC placement. pt was unable to lay completely flat in the bed. pt was coughing up thick clear/white mucous during procedure and needed to be suctioned frequently. at times, sputum was spilling out of pts mouth. at the end of procedure, brown liquid was spilling out of pts mouth, this appeared to be pudding that pt had eaten a few hours prior. MD notified. bedside PICC placement unsuccessful. per IR radiologist will need to insert central line at some point. MD made aware. Addendum entered by Ashlyn Crowder RN 04/20/25 11:34: per MD, do not give albumin until after PRBC infusion d/t risk of overload. Addendum entered by Ashlyn Crowder RN 04/20/25 10:37: pt repeatedly removes HFNC and demanding a glass of water. this RN continues to educate and remind pt why he is NPO. pt does not comprehend diet status. Original Note: Dr Gonzales at bedside discussing goals of care with pt. pt frequenting asking can i have a glass of water im so thristy This RN and MD re-educating pt on NPO status, pt does not seem to comprehend reasons for diet. pt needs frequent reminding.
--- NOTE | 2025-04-20 11:46 | P.PNIM_ITS ---
Subjective Subjective Date of Service: 04/20/25 Interval History: more hypoxic; placed on HFNC really wants to drink despite risk of aspiration; affirms full code Hb 7.1; BP low at 80/43 Review of Systems Review of Systems: Yes all other systems are reviewed and are negative Physical Exam 2 Vital Signs: Vital Signs: Last Vital Signs Temp 97.3 F 04/20/25 10:25 Pulse 101 H 04/20/25 10:25 Resp 18 04/20/25 11:31 BP 80/46 L 04/20/25 10:25 Pulse Ox 90 L 04/20/25 10:10 O2 Del Method High Flow Nasal C annula 04/20/25 10:10 O2 Flow Rate 60 04/20/25 10:10 FiO2 50 04/20/25 10:10 BMI result Body Mass Index 28.3 Gen: ill-appearing HEENT: sclera icteric, moist mucus membranes Neck: supple Lungs: bilateral wet inspiratory crackles Heart: regular rate and rhythm, no murmurs Abd: soft, fluid wave present, nontender Ext: trace bilateral edema Skin: warm/well-perfused Neuro: alert and oriented x3, no focal findings Psych: appropriate affect Objective Data Active Medications Acetaminophen (Acetaminophen 325 Mg Tablet) 650 mg PO Q6H PRN PRN Reason: Pain, Mild 1-3,fever,headache Calcium Carbonate (Calcium Carbonate 750 Mg Tab.Chew) 750 mg PO Q4H PRN PRN Reason: Heartburn Ceftriaxone Sodium (Ceftriaxone Sodium 1 Gm Vial) 1 gm IVPUSH Q24H [facility] Last Admin: 04/19/25 16:13 Dose: 1 gm Documented By: ANABEL Hydroxyzine HCl (Hydroxyzine Hcl 25 Mg Tablet) 25 mg PO Q6H PRN PRN Reason: Anxiety Metronidazole (Flagyl) 500 mg in 100 mls @ 100 mls/hr IV Q8H [facility] Last Infusion: 04/20/25 06:14 Dose: Infused Documented By: SHAWN Nutrition (Parenteral) (Parenteral Nutrition) 1,080 mls @ 45 mls/hr IV .Q24H [facility]; Protocol Stop: 04/20/25 20:59 Last Admin: 04/19/25 20:51 Dose: 45 mls/hr Documented By: SHAWN Nutrition (Parenteral) (Parenteral Nutrition) 1,920 mls @ 80 mls/hr IV .Q24H [facility]; Protocol Stop: 04/21/25 20:59 Albumin Human (Kedbumin 25 %) 50 mls @ 100 mls/hr IV Q30M [facility] Stop: 04/20/25 12:14 Magnesium Hydroxide (Milk Of Magnesia 30 Ml Oral.Susp) 30 ml PO DAILY PRN PRN Reason: Constipation Melatonin (Melatonin 3 Mg Tablet) 6 mg PO BEDTIME PRN PRN Reason: Insomnia Naloxone HCl (Naloxone Hcl 0.4 Mg/Ml Vial) 0.04 mg IVPUSH Q5M PRN PRN Reason: Excessive sedation or RR < 8 Pantoprazole Sodium (Pantoprazole Sodium 40 Mg/10 Ml Vial) 40 mg IVPUSH BID@0630,1630 [facility] Last Admin: 04/20/25 05:06 Dose: 40 mg Documented By: SHAWN Pharmacy Consult (Consult Rx Etoh Phenob Im/Po) 1 each MISCELLANE ONCE PRN; Protocol PRN Reason: Consult order Pharmacy Consult (Consult Rx Parenteral Nutrition Ordering) 1 each MISCELLANE DAILY PRN PRN Reason: Consult order Phenobarbital (Phenobarbital 15 Mg Tablet) 15 mg PO BID [facility]; Protocol Stop: 04/20/25 21:01 Last Admin: 04/20/25 07:24 Dose: Not Given Documented By: NICOLE Non-Admin Reason: NPO Phenobarbital (Phenobarbital 15 Mg Tablet) 15 mg PO DAILY [facility]; Protocol Stop: 04/22/25 09:01 Sodium Chloride (0.9 % Sodium Chloride Flush 3 Ml Syringe) 3 ml IVFLUSH QSHIFT [facility] Last Admin: 04/20/25 08:17 Dose: Not Given Documented By: NICOLE Non-Admin Reason: IV Running Labs 04/20/25 06:04 04/20/25 06:04 Labs: Laboratory Results - last 24 hr 04/16/25 04/19/25 04/20/25 17:24 13:10 06:04 MCV 93.2 MCH 32.0 MCHC 34.3 RDW 21.4 H Plt Count 98 L MPV 10.3 Absolute Nucleated RBC 0.040 H Nucleated RBC % (auto) 0.5 H PT 21.3 H INR 1.9 H O2 Saturation ABG pH at Pt Temp ABG pCO2 at Pt Temp ABG pO2 at Pt Temp ABG HCO3 ABG Base Excess (Actual) Anion Gap 10 L Estim Creat Clear Calc 69.8 Estimated GFR > 60 Random Glucose 156 H Calcium 6.9 L D Phosphorus 2.7 Magnesium 2.0 Total Bilirubin 2.3 H AST 81 H ALT 10 Alkaline Phosphatase 123 H Total Protein 5.0 L Albumin 1.9 L Triglycerides 44 Procalcitonin 0.43 Stool Occult Blood POSITIVE C. difficile Tox B Gene NEGATIVE Blood Type A Negative Antibody Screen NEGATIVE Crossmatch See Detail 04/20/25 04/20/25 07:48 08:31 MCV MCH MCHC RDW Plt Count MPV Absolute Nucleated RBC Nucleated RBC % (auto) PT INR O2 Saturation 63.0 ABG pH at Pt Temp 7.50 H ABG pCO2 at Pt Temp 23 L ABG pO2 at Pt Temp 40 L* ABG HCO3 18 L ABG Base Excess (Actual) -3.6 Anion Gap Estim Creat Clear Calc Estimated GFR Random Glucose Calcium Phosphorus Magnesium Total Bilirubin AST ALT Alkaline Phosphatase Total Protein Albumin Triglycerides Procalcitonin Stool Occult Blood C. difficile Tox B Gene Blood Type A Negative Antibody Screen NEGATIVE Crossmatch See Detail Microbiology Microbiology Results: Microbiology 04/16/25 15:00 Blood Culture - Final Blood - Venous Coag negative Staphylococcus Assessment and Plan (1) Alcohol withdrawal: Status: Acute (2) End stage liver disease: Status: Acute (3) Upper GI bleed: Status: Acute (4) Acute and chronic respiratory failure with hypoxia: Status: Acute (5) Pneumonia: Status: Acute Plan d5, 64yo M with AUD presenting after possible seizure likely due to withdrawal syndrome; found to be severely anemic and hypoxic acute blood loss anemia due to UGIB due to cirrhosis - transfused 2u pRBCs 04/16; will give another 1u today - EGD 04/[address] Saunders: EGD Findings:? * Esophagus:? There was an esophageal web in the upper 1/3 of the esophagus precluding passage of regular gastroscope. Scope was switche to slim scope which could easily traverse through the web. Severe esophagitis with ulceration at GE junction was noted from 35 cm to 30 cm. Flat varices were noted. * Stomach:? Diffuse congestion and erythema in mosaic pattern consistent with portal hypertensive gastropathy was noted in the whole stomach. Some areas with spontaneous oozing. Retroflexion from the cardia that showed Hill grade 3 hiatal hernia. * Duodenum:? Edema and congestion in the duodenum to the extent examined consistent with duodenopathy. ? EGD Impressions:? * Esophageal web * Grade D esophagitis * Hiatal hernia * Portal hypertensive gastropathy * Portal hypertensive duodenopathy - continue IV PPI - d/c'ed octreotide, continue ceftriaxone for SBP prophylaxis x7d [cipro upon discharge] esophageal web - s/p EGD dilation to 13mm 04/19 with FFP + platelets given; will need serial dilations to 18-20mm as outpt in future - per RECORD CLERK NDD1 solids + honey liquids 1:1, will continue PPN for now and place PICC acute hypoxic respiratory failure due to multifocal PNA - continue ceftriaxone and metronidazole 04/17-, d/c'ed vancomycin as BCx was coag-neg Staph, a contaminant - on HFNC hypoMg: repleted hypoK: repleted hypoPO4: repleted hypoNa: resolved coagulopathy due to cirrhosis: INR improved to 1.9 after 3 doses of IV vitamin K thrombocytopenia due to cirrhosis: monitor CBC daily; stable AUD with withdrawal seizure: phenobarbital taper, thiamine, folate, Addiction Medicine consultation VTE ppx: SCDs, no heparin given GIB dispo: TBD In my clinical judgment, the patient requires continued inpatient hospitalization for the following reasons: hypoxia, PPN Updated pt's brother Natanael by phone. Total time managing care of this patient today: 50 minutes. Quality Stroke Does the patient have a stroke diagnosis?: No VTE Prior VTE?: No VTE Risk Level:: Medical - moderate - high VTE Device Contraindication: N/A - Device Ordered VTE Drug Contraindication: N/A - Med Ordered
[2025-04-20 13:36] LABS: ABG Refer to POC result
--- NOTE | 2025-04-20 15:30 | MHC.CM.PN ---
EMR REVIEWED, PT W/ETOH WITHDRAWAL/GI BLEED AND ACUTE RESPIRATORY FAILURE ON HI-FLOW O2, PT NPO D/T RISK FOR ASPIRATION, CM MET W/PT TO COMPLETE A NEW HCP NAMING HIS BROTHER CHAUNCEY GARCIA [phone] HIS [facility] AND IBRAHIMA MIKEL RADHA [phone] .[employer], COPY UPLOADED TO [facility] AND PLACED IN CHART. CM WILL CONT TO FOLLOW DC NEEDS.
--- NOTE | 2025-04-20 15:36 | PC.NURSE ---
unable to complete RBCs and obtain vitals at 4hr d/t sterile field at bedside by IR attempting to insert PICC line.
--- NOTE | 2025-04-20 16:10 | P.CDIM_ITS ---
PROVIDER RESPONSE TEXT: To clarify, the appropriate diagnosis supported by the clinical indicators: Toxic metabolic QUERY TEXT: PHYSICIAN'S DOCUMENTATION REQUEST Date of Query: 04/19/2025 08:00 AM EDT Patient Name: Pranay Corley Admit Date: 04/16/2025 Dear Cedrick Gonzales MD, A review of the medical record indicates additional documentation may be needed. Please review below and update the documentation accordingly. Clinical Indicators: Progress note dated 04/17/25 - Patient seen and examined at bedside, overnight with bleeding, anemia with hemoglobin of 6.4, sodium 130, potassium 3.3, lactic acid 5.4. At this time patient encephalopathic. Based on the above, please further specify, in the Progress Notes, the known or suspected type of the documented encephalopathic: Metabolic Toxic Toxic metabolic Alcoholic Hepatic (reported as hepatic failure and needs further specificity as to acute, subacute, or chronic) Due to a specified condition (such as UTI, hyponatremia, CVA, etc.) After study encephalopathic is ruled out Other (explain) Clinically unable to determine (explain) Thank you, Shweta Orourke, CCS, CDIS Use of terms such as suspected, likely, concern for, or probable (associated with a specific diagnosis that is being evaluated, monitored, or treated as if it exists) are acceptable and can be coded in the inpatient setting, when documented at the time of discharge. Please use your independent medical judgment in providing your response. THIS QUERY IS PART OF THE PERMANENT MEDICAL RECORD
[2025-04-20] MEDS: Albumin Human 25 % 50 ML 100 ML IV ×4 (16:54→18:54)
--- NOTE | 2025-04-20 17:04 | MHC.SL.SWA ---
Speech Pathologist Impression: Risk of Aspiration, Oropharyngeal Dysphagia Risk of Aspiration Due to: Respiratory Status (on HFNC) Dysphasia Diet Status: Upgrade to NDD1/HTL Liquid Consistency and Strategies for Safe Swallow: Liquid Intake Recommendation: Honey Thick Liquid Intake Strategies: Small Sips No Straws Double Swallow Solid Food Consistency: Dietary Recommendations: Pureed (NDD1) Additional Modifications to Solid Foods: Patient presents with mild to moderate oropharyngeal dysphagia, secondary to absent dentition, repetitive tongue pumping behavior, and mild delay of swallow. No overt s/s of aspiration after patient ate container of applesauce and drank honey thickened juice. Recommend UPGRADE diet to PUREE (NDD1) with HONEY THICK liquids, pills crushed with puree. Patient can feed himself but is impulsive attempted multiple times to chug liquids. He will need direct supervision with oral intake. POULTRY EVISCERATOR will continue to follow to monitor tolerance and re-assess as needed. Oral Medication Intake: Crushed with Puree Please contact the pharmacy regarding appropriate crushable or liquid drug formulations that are available whenever modified delivery is recommended. Compensatory Strategies and Precautions to be Taken for Safe Swallow: Sitting Upright (90 deg) Double Swallow No Straw Liquids from Cup Liquids from Spoon Small Bites and Sips Rate of Ingestion Change Supervision While Eating and Drinking for Safe Swallow: Direct Supervision (1:1) Foods to Avoid: Tough, difficult to chew solids, dry crunchy textures. Swallowing Recommended Treatments: Compens. Strategy Educat. Recommendation for Speech: Inpatient Speech Therapy Medical Billing Assistant Clinican/Clinical Fellow: No Supervisory Statement: I have reviewed and agree with the student/clinical fellow's documentation: N/A Speech Language Pathologist: Norah Munoz M.A., CCC-POULTRY EVISCERATOR
[2025-04-20 18:53] LABS: Anion Gap 8 (12-20); Blood Urea Nitrogen 12 mg/dL (9-16); Calcium 7.2 mg/dL (8.4-10.2); Carbon Dioxide 23 mmol/L (22-29); Chloride 108 mmol/L (96-108); Creatinine Clr Calc Pharmacy 69.2; Estimated Glomerular Filt Rate > 60; Potassium 3.0 mmol/L (3.3-5.1); Sodium 136 mmol/L (135-145)
--- NOTE | 2025-04-20 19:30 | PC.NURSE ---
patient with increasing oxygen demand currently on HFNC, [facility] ICU PA to patients bedside for evaluation (see PA's note); labs obtained, CXR performed. Dr. Canseco to bedside for evaluation, Potassium repleted per orders, lasix 20mg IVP administered with good urine output, cardiology consult placed for suspected new CHF dx, patient remains strict NPO, sitter at bedside, fall precautions in place. Bed alarm on and safety measures in place. Please see MAR for full details. Plan of care continues.
[2025-04-20 20:30] LABS: Hematocrit 21.2 % (42.0-52.0); Hemoglobin 7.3 g/dl (14.0-18.0)
[2025-04-20 20:33] LABS: VBG HCO3 26 mmol/L (22-26)
[2025-04-20 20:34] LABS: Venous Blood Gas Refer to POC result
[2025-04-20] MEDS: Parenteral Nutrition 1,920 ML 80 ML IV (20:34)
[2025-04-20 20:35] LABS: Reflex Lactate? Lactic Acid Added
[2025-04-20] MEDS: Potassium Chloride/H20 10 MEQ/100 ML PIGGYBACK 100 MEQ IV ×3 (20:39→23:38)
--- NOTE | 2025-04-20 20:43 | P.PNCC_ITS ---
Critical Care Event Note Summary Date of Service: 04/20/25 Code activated: No Critical Care Time (minutes): 30 Comment: Pt seen and examined at bedside for ICU level of care need. The patient was hypotensive earlier, he remains hemodynamically stable at this point, he is not tachycardic, afebrile and in good spirits.? He is using high- flow oxygen without accessory muscle usage, no tripoding, mentation is intact and is able to follow commands.? He is asking for something to eat.? He had undergone an EGD with esophageal web dilation, hypertensive gastropathy was identified.? The patient had received a total of 3 packed red blood cells with FFP and platelets.? He is also being treated for aspiration pneumonitis. ?Laboratories from this morning reviewed. According to the nurse, the patient has had copious diarrhea.? He has focused physical exam reveals a well-appearing patient in no acute distress. Heart regular rate and rhythm no murmurs rubs gallops Lungs diminished lung sounds bilaterally with bilateral rhonchi left more than right Abdomen is protuberant, somewhat distended, positive bowel sounds, nontender to percussion, light or deep palpation. Able to move all 4 extremities on his own at the major joints. Laboratories reviewed in detail from this morning. Assessment: Acute upper GI bleed Esophageal web post dilation Hypertensive gastropathy Cirrhosis Alcohol dependence and risk of withdrawal aspiration pneumonia Coagulopathy At this point the patient appears hemodynamically stable, he does need further workup per the Internal Medicine team discretion including laboratories, and images. The above was conveyed to Dr. Canseco internal medicine physician.? At this point the patient does not require ICU level of care, if for any reason the patient decompensates please feel free to contact us, at which point a formal consult and management will be done. Critical care time used for critical evaluation of this patient, diagnosis, treatment and coordination of care, review her records and documentation TOTAL CRITICAL CARE TIME??30 MIN . discussion and coordination with consultants, completely separate from any procedures performed. Patient's care was discussed in detail with Dr. Hayes.? He is aware of all the above as well as the plan of care for this patient. .
[2025-04-20 20:45] LABS: Albumin Level 2.7 g/dL (3.5-5.0); Anion Gap 11 (12-20); Blood Urea Nitrogen 11 mg/dL (9-16); Calcium 7.4 mg/dL (8.4-10.2); Carbon Dioxide 22 mmol/L (22-29); Chloride 107 mmol/L (96-108); Creatinine Clr Calc Pharmacy 68.5; Estimated Glomerular Filt Rate > 60; Magnesium 1.9 mg/dL (1.6-2.6); Potassium 3.0 mmol/L (3.3-5.1); Sodium 137 mmol/L (135-145)
[2025-04-20 20:47] LABS: Iron 52 mcg/dL (45-160); Percent Iron Saturation 59 % (15-50); Total Iron Binding Capacity 88 mcg/dL (228-428); Unsaturated Iron Binding 36 ug/dL
[2025-04-20 21:00] LABS: NT Pro B Type Natriuretic Pept 2882.2 pg/mL (<300)
[2025-04-20 21:19] LABS: ~Lactic Acid-LAB USE ONLY 1.9 mmol/L (0.5-2.0)
[2025-04-20 21:23] LABS: Folate 6.7 ng/mL (> or = 4.0); Vitamin B12 > 2000 pg/mL (200-900)
--- NOTE | 2025-04-20 21:41 | PC.NURSE ---
PPN rate decreased from 80ml/hr to 40ml/hr per verbal order for destin Canseco
[2025-04-20] MEDS: Furosemide 20 MG/2 ML VIAL IVPUSH (22:09)
[2025-04-20] MEDS: 0.9 % Sodium Chloride Flush 3 ML SYRINGE IVFLUSH (22:09)
[2025-04-21] VITALS (46 sets, daily range): BP systolic 58–131; BP diastolic 39–86; PULSE 55–111; RESP 12–29; TEMP 26.2–36.9; O2SAT 64–99
[2025-04-21] MEDS: Potassium Chloride/H20 10 MEQ/100 ML PIGGYBACK 100 MEQ IV (00:40)
[2025-04-21] MEDS: metroNIDAZOLE/NS 500 MG/100 ML PIGGYBACK 100 MG IV (05:11)
--- NOTE | 2025-04-21 05:48 | PC.NURSE ---
MD to patient's bedside per RN request for further evaluation d/t increasing O2 requirements. no new orders, will continue to monitor
[2025-04-21 06:53] LABS: MANUAL DIFF FLAG NO
[2025-04-21 07:07] LABS: Hematocrit 22.4 % (42.0-52.0); Hemoglobin 7.7 g/dl (14.0-18.0); Imm Gran Abs Auto 0.11 X10*3/uL (0.00-0.03); Imm Gran Pct Auto 1.4 % (0.0-0.4); Lymphocytes Absolute Auto 0.8 X10*3/uL (1.2-4.9); Mean Corpuscular HGB Conc 34.4 g/dl (31.0-36.0); Mean Corpuscular Hemoglobin 31.6 pg (27.0-33.0); Mean Corpuscular Volume 91.8 fL (80.0-98.0); NRBC Abs Auto 0.090 X10*3/uL (0.0-0.012); NRBC Pct Auto 1.1 /100WBC (0.0-0.2); Platelet Count 87 X10*3/uL (160-400); Red Blood Count 2.44 X10*6/uL (4.60-5.80); White Blood Count 7.9 X10*3/uL (4.8-10.8)
[2025-04-21 07:09] LABS: INTERNATIONAL NORM RATIO 2.4 (0.9-1.1); Prothrombin Time 27.7 SEC (10.9-12.4)
[2025-04-21 07:22] LABS: Alanine Aminotransferase 9 U/L (0-40); Albumin Level 2.4 g/dL (3.5-5.0); Alkaline Phosphatase 121 U/L (39-117); Anion Gap 10 (12-20); Aspartate Amino Transferase 76 U/L (5-37); Blood Urea Nitrogen 10 mg/dL (9-16); Calcium 7.5 mg/dL (8.4-10.2); Carbon Dioxide 24 mmol/L (22-29); Chloride 108 mmol/L (96-108); Creatinine Clr Calc Pharmacy 61.3; Estimated Glomerular Filt Rate 59; Magnesium 1.6 mg/dL (1.6-2.6); Potassium 3.0 mmol/L (3.3-5.1); Sodium 139 mmol/L (135-145); Total Protein 5.2 g/dL (6.5-8.0)
[2025-04-21 07:34] LABS: Ammonia 31 umol/L (13-55)
[2025-04-21] MEDS: Furosemide 40 MG/4 ML VIAL IVPUSH (07:42)
--- NOTE | 2025-04-21 07:45 | PC.NURSE ---
0730 RN went to assess patient d/t pt desat in the 60s maxed out on HFNC 60L 100%, RT at bedside and placed Non rebreather mask 15L. A SR. OPERATIONS MANAGER was called at 0735. patient stated, I can't breathe, I need some water. O2 sats increased to 85-87% on HFNC and NRB mask. 40mg IV lasix given, see MAR. Bedside report given to PATIENT PORTAL REPRESENTATIVE Belia.
[2025-04-21] MEDS: dexmedeTOMIDine HCL/NS 400 MCG/100 ML PLAST..BAG 20.48 MCG IVCONT (08:00)
--- NOTE | 2025-04-21 08:03 | P.PNIM_ITS ---
Subjective Subjective Date of Service: 04/21/25 Interval History: BP improved overnight; however this AM became tachypneic and hypoxic, requiring 100% fiO2 via HFNC with addition of NRB. Discussed with ICU and accepted there. Review of Systems Review of Systems: Yes all other systems are reviewed and are negative Physical Exam 2 Vital Signs: Vital Signs: Last Vital Signs Temp 98.2 F 04/21/25 07:11 Pulse 111 H 04/21/25 07:57 Resp 29 H 04/21/25 07:57 BP 98/73 04/21/25 07:57 Pulse Ox 92 04/21/25 07:57 O2 Del Method High Flow Nasal C annula 04/21/25 07:57 O2 Flow Rate 55 04/21/25 07:57 FiO2 100 04/21/25 07:57 BMI result Body Mass Index 28.3 Gen: severe respiratory distress HEENT: sclera anicteric, moist mucus membranes Neck: supple Lungs: poor air entry, tachypneic, coarse crackles Heart: tachycardic, no murmurs Abd: distended, fluid wave Ext: 1+ edema Skin: warm/well-perfused Neuro: alert and oriented x3, no asterixis Psych: appropriate affect Objective Data Active Medications Acetaminophen (Acetaminophen 325 Mg Tablet) 650 mg PO Q6H PRN PRN Reason: Pain, Mild 1-3,fever,headache Calcium Carbonate (Calcium Carbonate 750 Mg Tab.Chew) 750 mg PO Q4H PRN PRN Reason: Heartburn Ceftriaxone Sodium (Ceftriaxone Sodium 1 Gm Vial) 1 gm IVPUSH Q24H [facility] Last Admin: 04/20/25 16:31 Dose: 1 gm Documented By: GENNAOPEEA Hydroxyzine HCl (Hydroxyzine Hcl 25 Mg Tablet) 25 mg PO Q6H PRN PRN Reason: Anxiety Metronidazole (Flagyl) 500 mg in 100 mls @ 100 mls/hr IV Q8H [facility] Last Infusion: 04/21/25 06:14 Dose: Infused Documented By: SHAWN Nutrition (Parenteral) (Parenteral Nutrition) 1,920 mls @ 80 mls/hr IV .Q24H [facility]; Protocol Stop: 04/21/25 20:59 Last Infusion: 04/20/25 21:39 Dose: 40 mls/hr Documented By: SHAWN Potassium Phosphate (Kphos) 15 mmol in 250 mls @ 62.5 mls/hr IV Q4H [facility] Stop: 04/21/25 15:29 Nutrition (Parenteral) (Parenteral Nutrition) 1,920 mls @ 80 mls/hr IV .Q24H [facility]; Protocol Stop: 04/22/25 20:59 Magnesium Hydroxide (Milk Of Magnesia 30 Ml Oral.Susp) 30 ml PO DAILY PRN PRN Reason: Constipation Melatonin (Melatonin 3 Mg Tablet) 6 mg PO BEDTIME PRN PRN Reason: Insomnia Naloxone HCl (Naloxone Hcl 0.4 Mg/Ml Vial) 0.04 mg IVPUSH Q5M PRN PRN Reason: Excessive sedation or RR < 8 Pantoprazole Sodium (Pantoprazole Sodium 40 Mg/10 Ml Vial) 40 mg IVPUSH BID@0630,1630 [facility] Last Admin: 04/21/25 05:11 Dose: 40 mg Documented By: SHAWN Pharmacy Consult (Consult Rx Etoh Phenob Im/Po) 1 each MISCELLANE ONCE PRN; Protocol PRN Reason: Consult order Pharmacy Consult (Consult Rx Parenteral Nutrition Ordering) 1 each MISCELLANE DAILY PRN PRN Reason: Consult order Phenobarbital (Phenobarbital 15 Mg Tablet) 15 mg PO DAILY [facility]; Protocol Stop: 04/22/25 09:01 Sodium Chloride (0.9 % Sodium Chloride Flush 3 Ml Syringe) 3 ml IVFLUSH QSHIFT [facility] Last Admin: 04/20/25 22:09 Dose: 3 ml Documented By: SHAWN Labs 04/21/25 06:40 04/21/25 06:40 Labs: Laboratory Results - last 24 hr 04/20/25 04/20/25 04/20/25 06:04 08:31 18:31 MCV MCH MCHC RDW Plt Count MPV Immature Gran % (Auto) Neut % (Auto) Lymph % (Auto) Dade % (Auto) Eos % (Auto) Baso % (Auto) Lymph # (Auto) Dade # (Auto) Eos # (Auto) Baso # (Auto) Abs Immat Gran (auto) Absolute Neuts (auto) Absolute Nucleated RBC Nucleated RBC % (auto) PT 21.3 H INR 1.9 H VBG pH VBG pCO2 VBG pO2 VBG HCO3 VBG O2 Saturation VBG Base Excess Anion Gap 8 L Estim Creat Clear Calc 69.2 Estimated GFR > 60 Random Glucose 145 H Lactic Acid 2.9 H* Lactic Acid F/U @ 2Hr Calcium 7.2 L Phosphorus Magnesium Iron TIBC % Saturation Unsat Iron Binding Total Bilirubin Direct Bilirubin AST ALT Alkaline Phosphatase Ammonia NT-Pro-B Natriuret Pep Total Protein Albumin Vitamin B12 Folate Blood Type A Negative Antibody Screen NEGATIVE Crossmatch See Detail 04/20/25 04/20/25 04/20/25 20:23 20:24 20:28 MCV MCH MCHC RDW Plt Count MPV Immature Gran % (Auto) Neut % (Auto) Lymph % (Auto) Dade % (Auto) Eos % (Auto) Baso % (Auto) Lymph # (Auto) Dade # (Auto) Eos # (Auto) Baso # (Auto) Abs Immat Gran (auto) Absolute Neuts (auto) Absolute Nucleated RBC Nucleated RBC % (auto) PT INR VBG pH 7.51 H VBG pCO2 32 VBG pO2 64 VBG HCO3 26 VBG O2 Saturation TNP VBG Base Excess 3.9 Anion Gap 11 L Estim Creat Clear Calc 68.5 Estimated GFR > 60 Random Glucose 133 H Lactic Acid Lactic Acid F/U @ 2Hr Calcium 7.4 L Phosphorus 2.1 L Magnesium 1.9 Iron 52 TIBC 88 L % Saturation 59 H Unsat Iron Binding 36 Total Bilirubin Direct Bilirubin AST ALT Alkaline Phosphatase Ammonia NT-Pro-B Natriuret Pep 2882.2 H Total Protein Albumin 2.7 L Vitamin B12 > 2000 H Folate 6.7 Blood Type Antibody Screen Crossmatch 04/20/25 04/21/25 20:44 06:40 MCV 91.8 MCH 31.6 MCHC 34.4 RDW 20.0 H Plt Count 87 L MPV 10.5 Immature Gran % (Auto) 1.4 H Neut % (Auto) 79.0 H Lymph % (Auto) 10.2 L Dade % (Auto) 6.9 Eos % (Auto) 2.0 Baso % (Auto) 0.5 Lymph # (Auto) 0.8 L Dade # (Auto) 0.6 Eos # (Auto) 0.2 Baso # (Auto) 0.0 Abs Immat Gran (auto) 0.11 H Absolute Neuts (auto) 6.3 Absolute Nucleated RBC 0.090 H Nucleated RBC % (auto) 1.1 H PT 27.7 H D INR 2.4 H VBG pH VBG pCO2 VBG pO2 VBG HCO3 VBG O2 Saturation VBG Base Excess Anion Gap 10 L Estim Creat Clear Calc 61.3 Estimated GFR 59 Random Glucose 142 H Lactic Acid Lactic Acid F/U @ 2Hr 1.9 Calcium 7.5 L Phosphorus 2.6 L Magnesium 1.6 Iron TIBC % Saturation Unsat Iron Binding Total Bilirubin 2.6 H Direct Bilirubin 2.0 H AST 76 H ALT 9 Alkaline Phosphatase 121 H Ammonia 31 NT-Pro-B Natriuret Pep Total Protein 5.2 L Albumin 2.4 L Vitamin B12 Folate Blood Type Antibody Screen Crossmatch Assessment and Plan (1) Alcohol withdrawal: Status: Acute (2) End stage liver disease: Status: Acute (3) Upper GI bleed: Status: Acute (4) Acute and chronic respiratory failure with hypoxia: Status: Acute (5) Pneumonia: Status: Acute Plan d6, 64yo M with AUD presenting after possible seizure likely due to withdrawal syndrome; found to be markedly anemic due to GI bleed; hypoxic due to pneumonia; now with progressive hypoxic respiratory failure requiring ICU level of care acute hypoxic respiratory failure due to multifocal PNA/ARDS - on ceftriaxone and metronidazole 04/17-, d/c'ed vancomycin as BCx was coag-neg Staph, a contaminant but will check MRSA swab; transfer to ICU for NIPPV but may need intubation; per discussion with pt and his HCP yesterday he is full code DENIS, concern for HRS - urine lytes, consider midodrine/albumin/octreotide vs. norepinephrine drip acute blood loss anemia due to UGIB due to cirrhosis - transfused 2u pRBCs 04/16, 1u pRBCs 04/20 - EGD 04/[address] Saunders: EGD Findings:? * Esophagus:? There was an esophageal web in the upper 1/3 of the esophagus precluding passage of regular gastroscope. Scope was switche to slim scope which could easily traverse through the web. Severe esophagitis with ulceration at GE junction was noted from 35 cm to 30 cm. Flat varices were noted. * Stomach:? Diffuse congestion and erythema in mosaic pattern consistent with portal hypertensive gastropathy was noted in the whole stomach. Some areas with spontaneous oozing. Retroflexion from the cardia that showed Hill grade 3 hiatal hernia. * Duodenum:? Edema and congestion in the duodenum to the extent examined consistent with duodenopathy. ? - continue IV PPI - d/c'ed octreotide, ceftriaxone covers SBP prophylaxis - may need ascites tapped to improve respirations esophageal web - s/p EGD dilation to 13mm 04/19 with 1u FFP + 1u platelets given; will need serial dilations to 18-20mm as outpt in future - per [employer] NDD1 solids + honey liquids 1:1 but did not tolerate; NPO for now, on PPN; PICC attempted 04/20 but unsuccessful; will need central venous access for TPN hypoK and hypoPO4: replete hypoMg: repleted hypoNa: resolved coagulopathy due to cirrhosis: INR improved after 3 doses of IV vitamin K thrombocytopenia due to cirrhosis: monitor CBC daily; stable AUD with withdrawal seizure: phenobarbital taper on hold as NPO; thiamine, Addiction Medicine consultation pending VTE ppx: SCDs, no heparin given GIB dispo: TBD In my clinical judgment, the patient requires continued inpatient hospitalization for the following reasons: hypoxia, PPN Updated pt's brother Natanael by phone. Total time managing care of this patient today: 80 minutes. Quality Stroke Does the patient have a stroke diagnosis?: No VTE Prior VTE?: No VTE Risk Level:: Medical - moderate - high VTE Device Contraindication: N/A - Device Ordered VTE Drug Contraindication: N/A - Med Ordered
[2025-04-21 08:09] LABS: ABG HCO3 16 mmol/L (22-26); ABG O2 % Saturation 80.0 %
[2025-04-21] MEDS: Ketamine HCl/NS 50 MG/5 ML SYRINGE 100 MG IVPUSH (08:21)
[2025-04-21] MEDS: 0.9 % Sodium Chloride Flush 3 ML SYRINGE IVFLUSH ×3 (08:42→23:15)
[2025-04-21 08:46] LABS: Glucose, Whole Blood 132 mg/dL (60-115)
[2025-04-21] MEDS: Potassium Phosphate/NS 15 MMOL/250 ML PLAST..BAG 62.5 MMOL IV ×2 (08:58→13:17)
[2025-04-21] MEDS: Thiamine HCL 100 MG in 0.9 % Sodium Chloride 100 ML 202 MG IV (09:00)
--- NOTE | 2025-04-21 09:05 | PC.RT ---
This am pt noted to be a rapid response call to the [facility] [place]. Pt noted hypoxemic and sob on max HFNC and 15 lpm NRB. Pt was admitted to the ice, and abg was drawn showing a PaO2 of 50 on same settings. Pt noted agitated, removing mask frequently and requiring a sitter causing multiple desaturations into the low 80's. MD lexus MD from ER intubated pt in 1 att using glidescope with a 7.5 ETT. Bilat lung sounds were present, ETCO2 comfimation and expiratory condensation inside the ETT. Pt placed on vent with no issues.
--- NOTE | 2025-04-21 10:00 | CA_ITS ---
Transthoracic Echocardiogram Patient (Last, First, Middle): Pranay Corley G Gender: Male Date of : 1960 Age: 64 Procedure Date: 04/21/2025 Procedure Type: Transthoracic Echocardiogram Location: ICU Height: 170.18 cm Weight: 81.65 kg BSA: 1.93 m2 Heart Rate: 97 bpm BP: 114 / 72 mmHg Field Advisor: GRACIELA Referring MD: Santo Canseco MD Chief Human Resources Officer: Vlad Villalba MD Symptoms: sob Study Quality: Adequate ECG Rhythm: Sinus Conclusions: - 1. Normal LV ejection fraction of 60 65% with impaired relaxation filling pattern 2. Normal cardiac valvular Dopplers 3. Normal RV systolic pressure 4. Mildly dilated ascending aorta 3.7 cm 5. No pericardial effusion Findings Procedure Information The study quality is limited by the presence of a ventilator. Left Ventricle Normal left ventricular size, thickness, and systolic function. The visually estimated ejection fraction is between 60-65%. Spectral Doppler is indicative of an impaired relaxation filling pattern. E/E prime ratio is <8, consistent with normal filling pressures. Right Ventricle Normal right ventricular cavity size and systolic function. Atria Both atria are normal in size. There is lipomatous hypertrophy of the interatrial septum. There is no evidence of interatrial shunt. Aortic Valve There is mild calcification of the aortic valve. There is no aortic valve stenosis. There is no aortic valve regurgitation. Mitral Valve There is mild anterior and posterior mitral leaflet thickening. There is trace mitral valve regurgitation. There is no mitral valve stenosis. Pulmonic Valve The pulmonic valve is likely normal. There is trace pulmonic valve regurgitation. Tricuspid Valve Normal tricuspid valve structure. There is trace tricuspid valve regurgitation. The right ventricular systolic pressure is 27 mmHg. Normal right atrial pressure. There is no evidence of pulmonary hypertension. Great Vessels The pulmonary artery was not well visualized. There is mild dilatation of the ascending aorta measuring 3.70 cm. Venous The inferior vena cava is normal in size and collapses greater than 50% with inspiration. Pericardium/Pleural There is no evidence of pericardial effusion. Prior Study Comparison No significant change compared to prior study dated: 01/14/2023. Measurements 2D Linear Measurements IVSd: 0.69 0.6-0.9/0.6-1.0 cm LVIDd: 4.96 3.9-5.3/4.2-5.9 cm LVIDd Index: 2.57 2.4-3.2/2.2-3.1 cm/m2 LVIDs: 3.19 2.0-3.6 cm LVPWd: 0.56 0.7-1.1 cm LA Diam: 3.70 2.7-3.8/3.0-4.0 cm LAIDs Index: 1.92 1.5-2.3 cm/m2 LV Mass: 122.04 67-162/88-224 g LV Mass Index: 63.23 43-95/49-115 g/m2 LVOT Diam: 2.20 3.0+(-)1.3 cm 2D Systolic Function EF 4C: 67.10 >55% EF 2C: 56.90 >55% EF BiP: 62.80 >55% Mitral Valve MV Pk E: 0.82 MV PK A: 1.13 MV Decel Time: 125.00 E/A: 0.70 E'Lateral: 8.70 E'Medial: 6.42 E/E' Med: 12.70 E/E' Lat: 9.40 PHT: 37.00 MVA PHT: 5.95 Decel Eagle: 6.54 Aortic Valve AoV Pk Chris: 1.44 AoV Pk Grad: 8.00 PER: 2.77 LVOT LVOT Pk Chris: 1.01 LVOT Mn Chris: 0.68 LVOT VTI: 0.21 LVOT Pk Grad: 4.00 LVOT Mn Grad: 2.00 LVOT Diam: 2.20 LVOT Area: 3.80 Diastolic Function MV Pk E: 0.82 MV Pk A: 1.13 E/A: 0.70 E'Medial: 6.42 E/E' Med: 12.70 E' Laterial: 8.70 E/E' Lat: 9.40 Right Ventricle TAPSE (mm): 20.40 TVS' Chris: 19.60 Tricuspid Valve TR Pk Chris: 2.47 TR Pk Grad: 24.00 RA Press: 3.00 RVSP: 27.00 Great Vessels Aorta Sinus of Valsalva: 3.30 2.0-3.5 cm Ao Asc: 3.70 2.1-3.4 cm Pulmonary Veins Pulm Vein S/D 1.40 Pulmonary Valve PV Pk Chris: 0.91 Peak PV Grad: 3.00 Updated in Other Vendor System with Status of Final Vlad Villalba MD electronically signed on 04/22/2025 12:02:34 PM with status of Final
--- NOTE | 2025-04-21 10:22 | W.PM.CCCN ---
History of Present Illness Data of Consult Service Date: 04/21/25 Primary Care Provider: Nisha Schwartz MD HPI Reason for consult: Shortness of breath 64-year-old gentleman with past medical history of chronic alcoholism who is drinking heavily over the past several months is admitted to the hospital on 04/16/[address] head negative for intracranial pathology, admitted to the floor. Patient has a history of alcohol withdrawal or withdrawal seizures in the past, continued to have poor in the floor and started having aspiration pneumonia. He underwent upper GI endoscopy for evaluation of anemia which showed esophageal webs that has been dilated with the endoscopic, portal hypertensive gastropathy and duodenopathy along with esophagitis. He continued to have further worsening in his respiratory status needing increasing oxygen requirement and this morning he was on 100% FiO2 along with non-rebreather and his sats were low so was transferred to medical ICU. In the ICU, since his ABG showed very poor PF ratio he was intubated and placed on ventilator support. Post intubation patient became hypotensive and displaced on Levophed for vasopressor support. Review of Systems Review of Systems: Unable to obtain as patient has poor mental status PMFSH Past Medical History Medical History Liver lesion Lesion of liver History of alcohol abuse Tobacco abuse Gout Tongue abnormality COVID-19 vaccine series completed Use of cane as ambulatory aid History of recent fall Hx of concussion Anxiety Wears dentures Primary osteoarthritis of right hip HTN (hypertension) Family History Family History Father No problems noted. Mother Cirrhosis Surgical History Surgical History History of total left hip arthroplasty Hx of colonoscopy History of fracture of leg History of arm fracture History of back surgery Social History Social History Household Members: Other Housing: Apartment Are you a primary progressive care nurse to a significant other at home: No Do you presently have visiting nurse or other home services: No Alcohol intake: former Patient Tobacco Use Status: Current everyday Tobacco user Tobacco use type: Cigarette Cigarette Packs Per Day: 1 Cigarettes Per Day: 20.0 Years Smoked: 46 e-Cigarette/Vaping Use: Never Used Second Hand Smoke Exposure: No Substance Use Type: Opiates service: No Current occupational status: retired Current occupation: rt handed Meds Allergies Allergy/AdvReac Type Severity Reaction Status Date / Time No Known Allergies Allergy Verified 04/18/25 08:47 Active Medications: Current Medications Acetaminophen (Acetaminophen 325 Mg Tablet) 650 mg PO Q6H PRN PRN Reason: Pain, Mild 1-3,fever,headache Calcium Carbonate (Calcium Carbonate 750 Mg Tab.Chew) 750 mg PO Q4H PRN PRN Reason: Heartburn Ceftriaxone Sodium (Ceftriaxone Sodium 1 Gm Vial) 1 gm IVPUSH Q24H [facility] Last Admin: 04/20/25 16:31 Dose: 1 gm Hydroxyzine HCl (Hydroxyzine Hcl 25 Mg Tablet) 25 mg PO Q6H PRN PRN Reason: Anxiety Metronidazole (Flagyl) 500 mg in 100 mls @ 100 mls/hr IV Q8H [facility] Last Infusion: 04/21/25 06:14 Dose: Infused Nutrition (Parenteral) (Parenteral Nutrition) 1,920 mls @ 80 mls/hr IV .Q24H [facility]; Protocol Stop: 04/21/25 20:59 Last Infusion: 04/20/25 21:39 Dose: 40 mls/hr Potassium Phosphate (Kphos) 15 mmol in 250 mls @ 62.5 mls/hr IV Q4H [facility] Stop: 04/21/25 15:29 Last Admin: 04/21/25 08:58 Dose: 62.5 mls/hr Nutrition (Parenteral) (Parenteral Nutrition) 1,920 mls @ 80 mls/hr IV .Q24H [facility]; Protocol Stop: 04/22/25 20:59 Thiamine HCl 100 mg/ Sodium (Chloride) 101 mls @ 202 mls/hr IV DAILY [facility] Last Infusion: 04/21/25 10:08 Dose: Infused Propofol (Diprivan) 1,000 mg in 100 mls @ 0 mls/hr IVCONT .Q0M [facility]; Protocol Last Admin: 04/21/25 08:34 Dose: 30 mcg/kg/min, 14.74 mls/hr Norepinephrine Bitartrate (Levophed) 8 mg in 250 mls @ 0 mls/hr IVCONT .Q0M [facility]; Protocol Last Admin: 04/21/25 08:25 Dose: 0.05 mcg/kg/min, 7.68 mls/hr Dexmedetomidine HCl (Precedex) 400 mcg in 100 mls @ 0 mls/hr IVCONT .Q0M [facility]; Protocol Last Titration: 04/21/25 08:23 Dose: 0 mcg/kg/hr, 0 mls/hr Ketamine HCl (Ketamine Hcl/Ns 100 Mg/10 Ml Syringe) 100 mg IVPUSH ONCE ONE Stop: 04/21/25 10:22 Magnesium Hydroxide (Milk Of Magnesia 30 Ml Oral.Susp) 30 ml PO DAILY PRN PRN Reason: Constipation Melatonin (Melatonin 3 Mg Tablet) 6 mg PO BEDTIME PRN PRN Reason: Insomnia Naloxone HCl (Naloxone Hcl 0.4 Mg/Ml Vial) 0.04 mg IVPUSH Q5M PRN PRN Reason: Excessive sedation or RR < 8 Pantoprazole Sodium (Pantoprazole Sodium 40 Mg/10 Ml Vial) 40 mg IVPUSH BID@0630,1630 [facility] Last Admin: 04/21/25 05:11 Dose: 40 mg Pharmacy Consult (Consult Rx Etoh Phenob Im/Po) 1 each MISCELLANE ONCE PRN; Protocol PRN Reason: Consult order Pharmacy Consult (Consult Rx Parenteral Nutrition Ordering) 1 each MISCELLANE DAILY PRN PRN Reason: Consult order Phenobarbital (Phenobarbital 15 Mg Tablet) 15 mg PO DAILY [facility]; Protocol Stop: 04/22/25 09:01 Last Admin: 04/21/25 09:16 Dose: Not Given Sodium Chloride (0.9 % Sodium Chloride Flush 3 Ml Syringe) 3 ml IVFLUSH QSHIFT [facility] Last Admin: 04/21/25 08:42 Dose: 3 ml Home Medications ?Medication ?Instructions ?Recorded ?Confirmed ?Last Taken ?Type No Known Home Meds 04/16/25 04/16/25 Unknown History Physical Exam Vital Signs: Vital Signs: Last Vital Signs Temp 98.2 F 04/21/25 07:11 Pulse 95 04/21/25 10:00 Resp 14 04/21/25 10:00 BP 114/72 04/21/25 10:00 Pulse Ox 95 04/21/25 10:00 O2 Del Method Mechanical Ventil ation 04/21/25 10:00 O2 Flow Rate 55 04/21/25 07:57 FiO2 80 04/21/25 10:00 BMI result Body Mass Index 28.3 General: Elderly male in severe acute distress, ill appearing and tired appearing Nutritional Appearance: well nourished and normal weight Eyes: appearance normal, both eyes and all related structures; Alignment and Position: alignment normal and position normal Neck: No lymphadenopathy, no thyromegaly Resp: bilateral air entry equal, bilateral crackles heard Cardio: Regular rate, regular rhythm; Heart sounds: S1 normal heart sound present and S2 normal heart sound present GI: soft, nontender, no guarding, no hepatosplenomegaly : bladder normal to inspection, bladder normal to palpation, no renal angle tenderness Skin: no rashes or lesions noted and elasticity normal Neuro: Sedated, no focal deficits Results Labs 04/21/25 06:40 04/21/25 06:40 Labs: Short CBC 04/20/25 04/21/25 Range/Units 20:23 06:40 WBC 7.9 (4.8-10.8) X10*3/uL Hgb 7.3 L 7.7 L (14.0-18.0) g/dl Hct 21.2 L 22.4 L (42.0-52.0) % Plt Count 87 L (160-400) X10*3/uL BMP 04/20/25 04/20/25 04/21/25 18:31 20:24 06:40 Sodium 136 137 139 Potassium 3.0 L 3.0 L 3.0 L Chloride 108 107 108 Carbon Dioxide 23 22 24 BUN 12 11 10 Creatinine 1.09 1.10 1.23 Calcium 7.2 L 7.4 L 7.5 L Liver Function 04/20/25 04/21/25 Range/Units 20:24 06:40 Total Bilirubin 2.6 H (0.0-1.0) mg/dL Direct Bilirubin 2.0 H (0.0-0.5) mg/dL AST 76 H (5-37) U/L ALT 9 (0-40) U/L Alkaline Phosphatase 121 H (39-117) U/L Albumin 2.7 L 2.4 L (3.5-5.0) g/dL Microbiology Microbiology Results: Microbiology 04/16/25 15:00 Blood - Venous Blood Culture - Final Coag negative Staphylococcus 04/16/25 15:05 Blood - Venous Blood Culture - Preliminary No growth after 48 hours. Assessment and Plan (1) Acute encephalopathy: Status: Acute (2) Acute respiratory failure: Status: Acute (3) Pneumonia: Status: Acute (4) Alcohol withdrawal: Qualifiers: Complication of substance-induced condition: with unspecified complication Qualified Code(s): F10.939 - Alcohol use, unspecified with withdrawal, unspecified Status: Acute Plan Neuro: Acute encephalopathy possibly due to alcohol withdrawal On propofol for sedation, as needed fentanyl for analgesia Close neurological status monitoring in the ICU every hour Cardiac: Cardiogenic Shock: Possibly secondary to cirrhotic physiology and positive pressure ventilation as the blood pressure dropped after intubation On Levophed support, titrate Levophed to keep map above 65 mm Hg Respiratory: Acute hypoxemic respiratory failure due to aspiration pneumonia Currently on ventilator support On PRVC mode FiO2 80%, PEEP 5, TV 400, RR 20 Peak pressures and plateau pressures are under the curve Ventilator management bundle with head end elevation, aspiration precaution, chlorhexidine mouthwash, daily awakening trials, daily spontaneous breathing trials GI: NG tube was not inserted as patient has esophageal web He underwent upper GI endoscopy and dilation of esophageal web on 04/19/2025. Upper GI endoscopy was also significant for flat esophageal viruses, portal hypertensive gastropathy and duodenopathy, esophagitis. Currently on TPN Renal: Acute kidney injury possibly secondary to systemic inflammatory response syndrome Baseline creatinine 0.6 2 days ago, creatinine today is 1.2 We will closely monitor I's and O's Avoid nephrotoxic medications Heme: Chronic anemia, closely monitor H&H, transfuse for hemoglobin less than 7 grams/deciliter Endocrine: Blood sugars under control Sliding scale insulin as needed Infectious disease: We will send pancultures, lactate We will escalate antibiotics to Zosyn, received ceftriaxone and azithromycin this morning We will give 200 cc of albumin bolus Musculoskeletal: Decubitus ulcer prevention protocol Lines: peripheral Prophylaxis: Lovenox, pantoprazole Bedside echo showed good LV systolic function, normal to slightly enlarged RV, dilated IVCs. We will hold off on sepsis bolus given this echo findings. We will give him 200 cc of albumin bolus at 01:33 mL/hour Total critical care time spent is about 45 minutes on managing this critically ill patient with multiple organ failures including acute encephalopathy, aspiration pneumonia, esophageal web, cirrhosis, acute kidney injury. Time spent is mostly on transferring the patient to medical ICU, formulating critical care plan and management, chart review, post intubation management, sedation management, vasopressor management at this time is excluding any procedural time
[2025-04-21] MEDS: Albumin Human 25 % 100 ML 133.33 ML IV ×2 (10:41→12:16)
[2025-04-21 11:33] LABS: Glucose, Whole Blood 167 mg/dL (60-115)
--- NOTE | 2025-04-21 12:28 | PM.SEPBOLA4 ---
Sepsis Bolus Exclusion Sepsis Bolus Exclusion CHF/Renal Failure Date of Occurrence: 04/21/25 Time of Occurrence:: 09:00 This patient met severe sepsis criteria due to the following condition(s):: Hypotension In my clinical judgement the administration of 30 ml/kg of crystalloid would be detrimental to this patient due to the patient's following conditions:: Concern for fluid overload Replace the 30 mls/kg with (Zero amount not acceptable and all fluids for severe sepsis must be given at GREATER than 125 mls/hr) *Note: One of the redmond must be documented Colloids amount given in mls:: 200 At a rate of (must be > 125 cchr):: 133
--- NOTE | 2025-04-21 13:31 | HO.SKINPHOTO ---
Location: bilateral buttocks Category: MASD Location: Right forehead Category: abrasion Location: bilateral mouth / lips Category: lesions
--- NOTE | 2025-04-21 13:59 | PC.NURSE ---
Patient's Brother Natanael Corley (see contact list) and [id number] Veronique Corley visited at bedside and verified contact information. Veronique Corley (Natanael's ) phone: [phone]. Family provided update by RN at bedside.
--- NOTE | 2025-04-21 15:17 | PC.NURSE ---
Assumed care of patient 07:30AM. Patient was a Rapid Response call on [facility] room 444. This SKOOG MACHINE OPERATOR responded with [employer] team. Staff reported patient became restless and hypoxic with SaO2 in 60s. Patient on High flow nasal cannula now at maximum setting 55L 100% plus partial non-rebreather at 15L over HFNC. Patient is awake, alert, talking, adjusting NRB mask. Plan to transfer to ICU and check ABGs. Patient given 40 mg Lasix IVP per hospitalist MD and patient transported on zoll monitor to ICU. Patient is restless, attempting to remove NRB mask and HFNC with 1:[address] and Precedex gtt started per protocol. Approx 08:18 physician called to bedside with plan for intubation. Informed consent obtained. Patient given RSI medications per MD - 100 mg Ketamine and 80 mg Rocuronium, see MAR. ETT placed with glidoscope 7.5, 22 at the lip at 08:22 AM. Postive colorimetry and breath sounds present bilaterally with ambu bag ventillation. Patient placed on ventillator circuit with settings ACVC RR 14, volume 400mL, PEEP 8.0, FiO2 90%. Patient required levophed gtt started per MD for hypotenion and MAP <65. Propofol gtt running @30 mcg/kg/min. CXR captured to confirm ETT placement. ABGs rechecked following intubation. Patient provided bed bath, repositioned Q2HRs, high fall precautions in place. See updated skin photographs added in nurse note. Family (Natanael - brother) updated at bedside by RN.
[2025-04-21 15:25] LABS: ABG Refer to POC result
[2025-04-21] MEDS: Chlorhexidine Gluc Oral Rinse 15 ML MOUTHWASH BUCCAL ×2 (15:31→19:59)
[2025-04-21 15:34] LABS: MRSA Nasal PCR NEGATIVE (Negative); SA Nasal PCR NEGATIVE (Negative)
[2025-04-21 17:47] LABS: Glucose, Whole Blood 196 mg/dL (60-115)
[2025-04-21] MEDS: Parenteral Nutrition 1,920 ML 80 ML IV (21:13)
[2025-04-21 23:54] LABS: Glucose, Whole Blood 180 mg/dL (60-115)
[2025-04-22] VITALS (42 sets, daily range): BP systolic 90–142; BP diastolic 48–84; PULSE 61–84; RESP 12–30; TEMP 34.8–37.7; O2SAT 91–96; BMI 28.3
[2025-04-22 01:11] LABS: Glucose, Whole Blood 177 mg/dL (60-115)
[2025-04-22 04:57] LABS: VBG HCO3 17 mmol/L (22-26); VBG O2 % Saturation 98.0 %
[2025-04-22 04:58] LABS: Venous Blood Gas Refer to POC result
[2025-04-22 05:26] LABS: INTERNATIONAL NORM RATIO 2.7 (0.9-1.1); Prothrombin Time 30.9 SEC (10.9-12.4)
[2025-04-22 05:38] LABS: Alanine Aminotransferase < 6 U/L (0-40); Albumin Level 2.7 g/dL (3.5-5.0); Alkaline Phosphatase 118 U/L (39-117); Anion Gap 17 (12-20); Aspartate Amino Transferase 85 U/L (5-37); Blood Urea Nitrogen 12 mg/dL (9-16); Calcium 7.8 mg/dL (8.4-10.2); Carbon Dioxide 23 mmol/L (22-29); Chloride 105 mmol/L (96-108); Creatinine Clr Calc Pharmacy 56.2; Estimated Glomerular Filt Rate 53; Magnesium 1.6 mg/dL (1.6-2.6); Potassium 3.6 mmol/L (3.3-5.1); Sodium 141 mmol/L (135-145); Total Protein 5.9 g/dL (6.5-8.0)
[2025-04-22] MEDS: Albumin Human 25 % 100 ML 133.33 ML IV ×2 (07:17→09:54)
[2025-04-22] MEDS: Thiamine HCL 100 MG in 0.9 % Sodium Chloride 100 ML 202 MG IV (07:17)
[2025-04-22] MEDS: 0.9 % Sodium Chloride Flush 3 ML SYRINGE IVFLUSH ×2 (07:18→16:07)
[2025-04-22] MEDS: Chlorhexidine Gluc Oral Rinse 15 ML MOUTHWASH BUCCAL ×3 (07:18→21:03)
--- NOTE | 2025-04-22 09:38 | P.PNCC_ITS ---
Subjective Subjective Date of Service: 04/22/25 Interval History: Continues to be on ventilator support, no new events overnight Critical Care Time (minutes): 35 Physical Exam 2 Vital Signs: Vital Signs: Last Vital Signs Temp 97.9 F 04/22/25 07:57 Pulse 73 04/22/25 08:49 Resp 16 04/22/25 08:49 BP 115/64 04/22/25 08:49 Pulse Ox 93 04/22/25 08:49 O2 Del Method Mechanical Ventil ation 04/22/25 08:49 O2 Flow Rate 55 04/21/25 07:57 FiO2 60 04/22/25 08:49 BMI result Body Mass Index 28.3 General: Elderly male in severe acute distress, ill appearing and tired appearing Nutritional Appearance: well nourished and overweight Eyes: appearance normal, both eyes and all related structures; Alignment and Position: alignment normal and position normal Neck: No lymphadenopathy, no thyromegaly Resp: bilateral air entry equal, bilateral crackles Cardio: Regular rate, regular rhythm; Heart sounds: S1 normal heart sound present and S2 normal heart sound present GI: soft, nontender, no guarding, no hepatosplenomegaly : bladder normal to inspection, bladder normal to palpation, no renal angle tenderness Skin: no rashes or lesions noted and elasticity normal Neuro: No focal deficit, sedated Objective Data Labs 04/21/25 06:40 04/22/25 04:48 Labs: Laboratory Results - last 24 hr 04/21/25 04/21/25 04/21/25 10:38 11:29 14:08 PT INR VBG pH VBG pCO2 VBG pO2 VBG HCO3 VBG O2 Saturation VBG Base Excess Sodium Potassium Chloride Carbon Dioxide Anion Gap BUN Creatinine Estim Creat Clear Calc Estimated GFR POC Glucose 167 H Random Glucose Lactic Acid 1.6 Calcium Phosphorus Magnesium Total Bilirubin AST ALT Alkaline Phosphatase Total Protein Albumin Nasal Screen MRSA (PCR) NEGATIVE Nasal S. aureus Screen NEGATIVE Nasal MRSA/S.aureus Interp SEE NOTE 04/21/25 04/21/25 04/22/25 17:41 23:51 01:06 PT INR VBG pH VBG pCO2 VBG pO2 VBG HCO3 VBG O2 Saturation VBG Base Excess Sodium Potassium Chloride Carbon Dioxide Anion Gap BUN Creatinine Estim Creat Clear Calc Estimated GFR POC Glucose 196 H 180 H 177 H Random Glucose Lactic Acid Calcium Phosphorus Magnesium Total Bilirubin AST ALT Alkaline Phosphatase Total Protein Albumin Nasal Screen MRSA (PCR) Nasal S. aureus Screen Nasal MRSA/S.aureus Interp 04/22/25 04:48 PT 30.9 H INR 2.7 H VBG pH 7.55 H VBG pCO2 20 VBG pO2 80 VBG HCO3 17 L VBG O2 Saturation 98.0 VBG Base Excess -3.2 Sodium 141 Potassium 3.6 Chloride 105 Carbon Dioxide 23 Anion Gap 17 BUN 12 Creatinine 1.34 Estim Creat Clear Calc 56.2 Estimated GFR 53 POC Glucose Random Glucose 165 H Lactic Acid Calcium 7.8 L Phosphorus 5.2 H Magnesium 1.6 Total Bilirubin 2.4 H AST 85 H ALT < 6 Alkaline Phosphatase 118 H Total Protein 5.9 L Albumin 2.7 L Nasal Screen MRSA (PCR) Nasal S. aureus Screen Nasal MRSA/S.aureus Interp Microbiology Microbiology Results: Microbiology 04/16/25 15:05 Blood - Venous Blood Culture - Final No growth after 5 days. 04/16/25 15:00 Blood - Venous Blood Culture - Final Coag negative Staphylococcus Progress Note: A&P Assessment and plan (1) Cirrhosis: Status: Acute (2) Acute respiratory failure: Status: Acute (3) Acute encephalopathy: Status: Acute Plan 64-year-old male with history of chronic alcoholism admitted to the hospital due to multiple falls, hospital course complicated by worsening aspiration pneumonia leading to intubation on 04/21/2025. He also had significant anemia for which she underwent upper GI endoscopy which showed esophageal web status post dilation. Neuro: Acute encephalopathy possibly due to alcohol withdrawal On propofol for sedation, as needed fentanyl for analgesia On high-dose thiamine supplementation Close neurological status monitoring in the ICU every hour Cardiac: Cardiogenic Shock: Possibly secondary to cirrhotic physiology and positive pressure ventilation as the blood pressure dropped after intubation On Levophed support, titrate Levophed to keep map above 65 mm Hg Respiratory: Acute hypoxemic respiratory failure due to aspiration pneumonia Currently on ventilator support On PRVC mode FiO2 60%, PEEP 8, TV 400, RR 20; not a candidate for weaning trials given high oxygen requirement. Peak pressures and plateau pressures are under the curve Ventilator management bundle with head end elevation, aspiration precaution, chlorhexidine mouthwash, daily awakening trials, daily spontaneous breathing trials GI: NG tube was not inserted as patient has esophageal web He underwent upper GI endoscopy and dilation of esophageal web on 04/19/2025. Upper GI endoscopy was also significant for flat esophageal viruses, portal hypertensive gastropathy and duodenopathy, esophagitis. Currently on TPN Evidence of cirrhosis and small ascites on ultrasound, possibly alcohol-related cirrhosis. Renal: Acute kidney injury possibly secondary to systemic inflammatory response syndrome Baseline creatinine 0.6 three days ago, creatinine slowly trending up, up to 1.34 this morning We will closely monitor I's and O's Avoid nephrotoxic medications Heme: Chronic anemia possibly secondary to GI blood loss from portal hypertensive gastropathy and duodenopathy Thrombocytopenia secondary to systemic inflammatory response syndrome closely monitor H&H, transfuse for hemoglobin less than 7 grams/deciliter Endocrine: Blood sugars under control Sliding scale insulin as needed Infectious disease: Repeat pancultures negative so far, lactate normal Antibiotics de-escalated to Zosyn yesterday Musculoskeletal: Decubitus ulcer prevention protocol Lines: peripheral Prophylaxis: Lovenox, pantoprazole Quality Stroke Does the patient have a stroke diagnosis?: No VTE Prior VTE?: No VTE Risk Level:: Medical - moderate - high VTE Device Contraindication: N/A - Device Ordered VTE Drug Contraindication: N/A - Med Ordered
[2025-04-22 10:19] LABS: MANUAL DIFF FLAG NO
[2025-04-22 10:21] LABS: Hematocrit 22.1 % (42.0-52.0); Hemoglobin 7.4 g/dl (14.0-18.0); Imm Gran Abs Auto 0.30 X10*3/uL (0.00-0.03); Imm Gran Pct Auto 2.9 % (0.0-0.4); Lymphocytes Absolute Auto 1.4 X10*3/uL (1.2-4.9); Mean Corpuscular HGB Conc 33.5 g/dl (31.0-36.0); Mean Corpuscular Hemoglobin 32.5 pg (27.0-33.0); Mean Corpuscular Volume 96.9 fL (80.0-98.0); NRBC Abs Auto 0.300 X10*3/uL (0.0-0.012); Red Blood Count 2.28 X10*6/uL (4.60-5.80); White Blood Count 10.4 X10*3/uL (4.8-10.8)
[2025-04-22 10:22] LABS: NRBC Pct Auto 2.9 /100WBC (0.0-0.2); Platelet Count 79 X10*3/uL (160-400)
[2025-04-22 11:48] LABS: Glucose, Whole Blood 168 mg/dL (60-115)
[2025-04-22] MEDS: Furosemide 40 MG/4 ML VIAL IVPUSH (15:11)
--- NOTE | 2025-04-22 15:57 | PC.NURSE ---
Assumed care of patient 0700. Patient is mechanically vented and sedated. Ventillator settings ACVC rate 14, volume 375mL, PEEP 8.0, FiO2 decreased this shift from 60% to 50%. Patient provided full bed bath approx 11:00AM. Patient's brother Natanael and [id number] updated via phone. Patient turned and repositioned Q2HRs, high fall precautions in place. At approx 16:00, increased JVD noted with assessment. MD notified and new orders for Lasix 40 MG IVP given.
[2025-04-22 18:02] LABS: Glucose, Whole Blood 153 mg/dL (60-115)
[2025-04-22] MEDS: Parenteral Nutrition 1,920 ML 80 ML IV (20:51)
[2025-04-23] VITALS (42 sets, daily range): BP systolic 85–125; BP diastolic 49–68; PULSE 63–96; RESP 10–28; TEMP 34.2–37; O2SAT 91–99; BMI 27.6
[2025-04-23 00:21] LABS: Glucose, Whole Blood 163 mg/dL (60-115)
[2025-04-23 04:21] LABS: VBG HCO3 24 mmol/L (22-26)
[2025-04-23 04:28] LABS: Venous Blood Gas Refer to POC result
[2025-04-23 04:46] LABS: Hematocrit 23.0 % (42.0-52.0); Hemoglobin 7.7 g/dl (14.0-18.0); Imm Gran Abs Auto 0.26 X10*3/uL (0.00-0.03); Imm Gran Pct Auto 2.3 % (0.0-0.4); Lymphocytes Absolute Auto 1.7 X10*3/uL (1.2-4.9); MANUAL DIFF FLAG SCAN; Mean Corpuscular HGB Conc 33.5 g/dl (31.0-36.0); Mean Corpuscular Hemoglobin 32.4 pg (27.0-33.0); Mean Corpuscular Volume 96.6 fL (80.0-98.0); NRBC Abs Auto 0.180 X10*3/uL (0.0-0.012); NRBC Pct Auto 1.6 /100WBC (0.0-0.2); Red Blood Count 2.38 X10*6/uL (4.60-5.80); SCAN SMEAR FLAG 1; White Blood Count 11.1 X10*3/uL (4.8-10.8)
[2025-04-23 04:49] LABS: Platelet Count 76 X10*3/uL (160-400)
[2025-04-23 05:08] LABS: Alanine Aminotransferase 8 U/L (0-40); Albumin Level 2.9 g/dL (3.5-5.0); Alkaline Phosphatase 111 U/L (39-117); Anion Gap 15 (12-20); Aspartate Amino Transferase 77 U/L (5-37); Blood Urea Nitrogen 12 mg/dL (9-16); Calcium 8.5 mg/dL (8.4-10.2); Carbon Dioxide 29 mmol/L (22-29); Chloride 102 mmol/L (96-108); Creatinine Clr Calc Pharmacy 55.9; Estimated Glomerular Filt Rate 53; Magnesium 1.4 mg/dL (1.6-2.6); Potassium 2.8 mmol/L (3.3-5.1); Sodium 143 mmol/L (135-145); Total Protein 5.6 g/dL (6.5-8.0)
[2025-04-23] MEDS: Potassium Chloride/H20 10 MEQ/100 ML PIGGYBACK 100 MEQ IV ×4 (05:26→09:55)
[2025-04-23] MEDS: Magnesium Sulfate/H2O 2 GM/50 ML PIGGYBACK IV (05:26)
--- NOTE | 2025-04-23 06:16 | PC.NURSE ---
0600 Shift Summary.? ?Patient? remains stable throughout the shift, no signs/ symptoms of GI bleeding. Able to titrated FiO2 down to 45% on the vent with Propofol infusing for sedation. Frequent oral care provided?as patient as scabs on lips, mouth moisturizer applied and wound RN consult pending. Pt remains NPO with PPN infusing.? Left forearm IV removed? as patient has left forearm dark bruising with edema., new IV placed Left outer forearm and Left hand. Bilateral arms elevated on pillows. Levophed infusing as ordered?and titrated to maintain?MAP >65 as documented. AM labs drawn and resulted to provider with Potassium and Magnesium ordered and given as documented. Bed locked in lowest position, alarm on. Repositioned?q2h with wedges/pillows. See EMR/Flowsheet for further details.?
--- NOTE | 2025-04-23 07:57 | PM.CCPN ---
Subjective Subjective Date of Service: 04/23/25 Critical Care Time (minutes): 60 Physical Exam Vital Signs: Vital Signs: Last Vital Signs Temp 96.8 F 04/23/25 07:00 Pulse 72 04/23/25 07:00 Resp 25 H 04/23/25 07:00 BP 93/52 L 04/23/25 07:00 Pulse Ox 92 04/23/25 07:31 O2 Del Method Mechanical Ventil ation 04/23/25 07:00 O2 Flow Rate 55 04/21/25 07:57 FiO2 45 04/23/25 07:37 BMI result Body Mass Index 27.6 Const: Other: intubated, sedated; no appreciable spontaneous movements General: comfortable, no acute distress and well developed HEENT: Head: Yes normal to inspection, Yes normocephalic and Yes atraumatic Eyes: General: appearance normal, both eyes and all related structures Neck: Neck: Yes normal visual inspection, Yes full ROM, Yes no meningeal signs, Yes trachea midline and Yes supple Chest: Chest palpation & inspection: normal inspection of the chest Resp: Other: appreciable diffuse rhonchi; no appreciable overt rales, wheezing Cardio: Rate: regular rate Rhythm: regular rhythm GI: Inspection: Yes normal to inspection, No Abdominal wall edema and No distended Palpation (GI): Soft to palpation, not firm, nontender, no guarding and not rigid Skin: General skin exam: no rashes or lesions noted Neuro: General: tone normal and no meningeal signs Extrem: Other: appreciable 1+ pitting edema to bilateral shins; appreciable clubbing General: Yes normal to inspection, Yes full ROM and Yes capillary refill normal Psych: Other: unable to assess Objective Data Labs 04/23/25 04:06 04/23/25 04:06 Labs: Laboratory Results - last 24 hr 04/22/25 04/22/25 04/22/25 10:12 11:40 17:57 WBC 10.4 RBC 2.28 L Hgb 7.4 L Hct 22.1 L MCV 96.9 D MCH 32.5 MCHC 33.5 RDW 20.9 H Plt Count 79 L MPV 9.7 Immature Gran % (Auto) 2.9 H Neut % (Auto) 72.7 Lymph % (Auto) 13.4 L [place] % (Auto) 8.1 Eos % (Auto) 2.7 Baso % (Auto) 0.2 Lymph # (Auto) 1.4 [place] # (Auto) 0.8 Eos # (Auto) 0.3 Baso # (Auto) 0.0 Abs Immat Gran (auto) 0.30 H Absolute Neuts (auto) 7.6 Absolute Nucleated RBC 0.300 H Nucleated RBC % (auto) 2.9 H Smear Tech's Comments VBG pH VBG pCO2 VBG pO2 VBG HCO3 VBG O2 Saturation VBG Base Excess Sodium Potassium Chloride Carbon Dioxide Anion Gap BUN Creatinine Estim Creat Clear Calc Estimated GFR POC Glucose 168 H 153 H Random Glucose Calcium Phosphorus Magnesium Total Bilirubin AST ALT Alkaline Phosphatase Total Protein Albumin 04/23/25 04/23/25 04/23/25 00:17 04:06 04:16 WBC 11.1 H RBC 2.38 L Hgb 7.7 L Hct 23.0 L MCV 96.6 MCH 32.4 MCHC 33.5 RDW 20.4 H Plt Count 76 L MPV 10.6 Immature Gran % (Auto) 2.3 H Neut % (Auto) 73.1 H Lymph % (Auto) 15.1 L [place] % (Auto) 6.9 Eos % (Auto) 2.1 Baso % (Auto) 0.5 Lymph # (Auto) 1.7 [place] # (Auto) 0.8 Eos # (Auto) 0.2 Baso # (Auto) 0.1 Abs Immat Gran (auto) 0.26 H Absolute Neuts (auto) 8.1 Absolute Nucleated RBC 0.180 H Nucleated RBC % (auto) 1.6 H Smear Tech's Comments VERIFIED VBG pH 7.62 H* VBG pCO2 23 VBG pO2 96 VBG HCO3 24 VBG O2 Saturation Not Reportable VBG Base Excess 3.7 Sodium 143 Potassium 2.8 L* D Chloride 102 Carbon Dioxide 29 Anion Gap 15 BUN 12 Creatinine 1.35 Estim Creat Clear Calc 55.9 Estimated GFR 53 POC Glucose 163 H Random Glucose 169 H Calcium 8.5 D Phosphorus 3.9 Magnesium 1.4 L* Total Bilirubin 2.7 H AST 77 H ALT 8 Alkaline Phosphatase 111 Total Protein 5.6 L Albumin 2.9 L Microbiology Microbiology Results: Microbiology 04/21/25 10:38 Blood - Venous Blood Culture - Preliminary No growth after 24 hours. 04/21/25 10:34 Blood - Venous Blood Culture - Preliminary No growth after 24 hours. 04/16/25 15:05 Blood - Venous Blood Culture - Final No growth after 5 days. 04/16/25 15:00 Blood - Venous Blood Culture - Final Coag negative Staphylococcus Progress Note: A&P Assessment and plan (1) Aspiration pneumonia: Status: Acute (2) Upper GI bleed: Status: Acute (3) Alcohol use disorder, severe, dependence: Status: Acute Plan Patient is a 64 Y M w/ alcohol misuse c/b prior alcohol withdrawal seizures presenting to ED on 04/16 s/p recurrent falls, c/f withdrawal seizure, initially?admitted medicine; hospital course c/b upper GI bleed c/b aspiration and acute hypoxic respiratory failure; on 04/21, patient w/ worsening acute hypoxic respiratory?failure necessitating intubation; ICU course c/b shock N: intubated, sedated w/ propofol gtt, wean as tolerated CV: shock, norepinephrine gtt, wean as tolerated R: acute hypoxic respiratory failure d/t aspiration pneumonia, intubated 04/21, wean as tolerated GI: upper GI bleed d/t esophagitis, portal hypertensive gastropathy, stable; NPO, TPN : acute renal insufficiency, to monitor renal indices/electrolytes H: acute blood loss anemia d/t upper GI bleed, transfuse?as needed; to avoid chemical DVT prophylaxis in setting of upper GI bleed, mechanical devices ID: c/f aspiration pneumonia, empiric zosyn; to follow-up BCx 04/21 E: to monitor hypo-/hyper-glycemia P: alcohol misuse S: daily updates given to brother/HCP Quality Stroke Does the patient have a stroke diagnosis?: No VTE Prior VTE?: No VTE Risk Level:: Medical - moderate - high VTE Device Contraindication: N/A - Device Ordered VTE Drug Contraindication: N/A - Med Ordered
[2025-04-23] MEDS: Albumin Human 25 % 100 ML IV ×3 (08:42→19:41)
[2025-04-23] MEDS: 0.9 % Sodium Chloride Flush 3 ML SYRINGE IVFLUSH ×3 (08:42→23:55)
[2025-04-23] MEDS: Thiamine HCL 100 MG in 0.9 % Sodium Chloride 100 ML 202 MG IV (08:43)
[2025-04-23] MEDS: Furosemide 20 MG/2 ML VIAL IVPUSH ×2 (08:43→17:38)
[2025-04-23] MEDS: Chlorhexidine Gluc Oral Rinse 15 ML MOUTHWASH BUCCAL ×3 (08:43→19:41)
--- NOTE | 2025-04-23 09:26 | MHC.CLN ---
F/U PT TRANSFERRED TO ICU INTUBATED AND SEDATED TO CONTINUE NUTRITION/HYDRATION VIA PPN REVIEWED LABS DISCUSSED WITH PHARMACY CONTINUE PPN AT MAX GOAL RATE OF 80ML PER HOUR WITH 85G LIPIDS PROVIDES 1829 KCALS (2348 TOTAL KCALS WITH PPN AND SEDATION; 29KCALS/KG), 82G PROTEIN (1.2G/KG), 192G DEXTROSE REPLETE LYTES NEEDED
[2025-04-23 12:59] LABS: Glucose, Whole Blood 158 mg/dL (60-115)
--- NOTE | 2025-04-23 13:28 | HO.WOUND ---
Wound Consult: Follow up 64 yr old admitted to [facility] [place] on 04/16/25- See progress notes and H&P for detailed history. Wound follow up for head, buttocks. Patient agreeable to assessment and photo documentation. Seen in the ICU Right forehead abrasion- scab lifted revealing healed skin Lips- patient with bloody drainage from lips, not pressure related, superifical open areas appreciated across lips mostly on left upper and corner. Buttocks/coccyx- irregular deep red intact blanching discoloration down gluteal cleft- likely MASD bilateral heels not pictured -intact pink and blanching- heel boots in place Recommendations: 1. Turn and Reposition every 2 hours and as needed for patient comfort. Use pillows or wedges to support off loading positions. 2. Off Load all bony prominences with use of pillows and heel boots if needed. Apply Preventative foams where needed. 3. Monitor for incontinence and moisture control, use barrier creams when needed for prevention and treatment. 4. Provide adequate and supplemental nutrition. 5. Order or Continue low air loss mattress. 6. When applicable maintain blood glucose levels per Providers order. Buttock/coccyx: Off Load Pressure with Q2 hr turns and use of pillows - Cleanse with PH balance spray or wipes, pat dry. ?Apply thin layer of Triad to wound bed. Do not remove all of paste between applications as this may cause further skin damage.? Cover with foam dressing to aid in off loading and protection from friction. Change every 3 days and PRN. Bilateral heels: Elevate heels off bed with boots Left elbow: cleanse with saline, apply foam dressing, change every 3 days and PRN. Lips: routine mouth care with moisturizer per ICU protocol Re-consult wound care Nurse for wound deterioration or wound changes.
--- NOTE | 2025-04-23 14:06 | HO.WOUND ---
Wound Consult: Follow up 64 yr old admitted to [facility] on 04/16/25- See progress notes and H&P for detailed history. Wound follow up for head, buttocks. Patient agreeable to assessment and photo documentation. Seen in the ICU Right forehead abrasion- scab lifted revealing healed skin Lips- patient with bloody drainage from lips, not pressure related, superifical open areas appreciated across lips mostly on left upper and corner. Buttocks/coccyx- irregular deep red intact blanching discoloration down gluteal cleft- likely MASD Left elbow- not pressure related, unclear etiology, moist pink/yellow base- foam applied bilateral heels not pictured -intact pink and blanching- heel boots in place Recommendations: 1. Turn and Reposition every 2 hours and as needed for patient comfort. Use pillows or wedges to support off loading positions. 2. Off Load all bony prominences with use of pillows and heel boots if needed. Apply Preventative foams where needed. 3. Monitor for incontinence and moisture control, use barrier creams when needed for prevention and treatment. 4. Provide adequate and supplemental nutrition. 5. Order or Continue low air loss mattress. 6. When applicable maintain blood glucose levels per Providers order. Buttock/coccyx: Off Load Pressure with Q2 hr turns and use of pillows - Cleanse with PH balance spray or wipes, pat dry. ?Apply thin layer of Triad to wound bed. Do not remove all of paste between applications as this may cause further skin damage.? Cover with foam dressing to aid in off loading and protection from friction. Change every 3 days and PRN. Bilateral heels: Elevate heels off bed with boots Left elbow: cleanse with saline, apply foam dressing, change every 3 days and PRN. Lips: routine mouth care with moisturizer per ICU protocol Re-consult wound care Nurse for wound deterioration or wound changes.
--- NOTE | 2025-04-23 14:09 | MHC.CM.PN ---
Pt remains on ventilatory support in ICU: Will assess for wean ability daily: d/c plan to be reassessed daily and/or as pt makes clinical progress.
--- NOTE | 2025-04-23 16:21 | PC.NURSE ---
Russell catheter removed 16:00, external catheter (male purewick) in place. Patient due to void by 04/23 22:00.
[2025-04-23 16:49] LABS: Glucose, Whole Blood 154 mg/dL (60-115)
[2025-04-23] MEDS: Parenteral Nutrition 1,920 ML 80 ML IV (19:41)
[2025-04-23 22:05] LABS: Albumin Level 3.7 g/dL (3.5-5.0)
[2025-04-24] VITALS (49 sets, daily range): BP systolic 85–123; BP diastolic 54–71; PULSE 77–104; RESP 12–23; TEMP 34.7–37.2; O2SAT 89–97; BMI 27.6
[2025-04-24 00:05] LABS: Glucose, Whole Blood 170 mg/dL (60-115)
[2025-04-24] MEDS: Albumin Human 25 % 100 ML IV (01:24)
[2025-04-24 04:58] LABS: VBG HCO3 43 mmol/L (22-26); VBG O2 % Saturation 100.0 %
[2025-04-24 05:02] LABS: Venous Blood Gas Refer to POC result
[2025-04-24 05:34] LABS: Mean Corpuscular Volume 99.5 fL (80.0-98.0); PLT CLUMP 1; SCAN SMEAR FLAG 1
[2025-04-24 05:36] LABS: Hematocrit 21.6 % (42.0-52.0); Imm Gran Abs Auto 0.19 X10*3/uL (0.00-0.03); Imm Gran Pct Auto 2.0 % (0.0-0.4); Lymphocytes Absolute Auto 1.4 X10*3/uL (1.2-4.9); MANUAL DIFF FLAG SCAN; Mean Corpuscular HGB Conc 32.4 g/dl (31.0-36.0); Mean Corpuscular Hemoglobin 32.3 pg (27.0-33.0); NRBC Abs Auto 0.130 X10*3/uL (0.0-0.012); Red Blood Count 2.17 X10*6/uL (4.60-5.80)
[2025-04-24 05:55] LABS: Glucose, Whole Blood 173 mg/dL (60-115)
[2025-04-24 05:58] LABS: NRBC Pct Auto 1.4 /100WBC (0.0-0.2); White Blood Count 9.6 X10*3/uL (4.8-10.8)
[2025-04-24 05:59] LABS: Platelet Count 67 X10*3/uL (160-400)
[2025-04-24 06:01] LABS: Hemoglobin 7.0 g/dl (14.0-18.0)
[2025-04-24 06:06] LABS: Albumin Level 3.7 g/dL (3.5-5.0); Anion Gap 16 (12-20); Blood Urea Nitrogen 17 mg/dL (9-16); Calcium 9.5 mg/dL (8.4-10.2); Carbon Dioxide 33 mmol/L (22-29); Chloride 96 mmol/L (96-108); Creatinine Clr Calc Pharmacy 55.2; Estimated Glomerular Filt Rate 53; Magnesium 1.3 mg/dL (1.6-2.6); Potassium 2.7 mmol/L (3.3-5.1); Sodium 142 mmol/L (135-145)
[2025-04-24] MEDS: Magnesium Sulfate/H2O 2 GM/50 ML PIGGYBACK IV ×2 (06:25→21:11)
[2025-04-24] MEDS: Potassium Chloride/H20 10 MEQ/100 ML PIGGYBACK 100 MEQ IV ×7 (06:25→23:19)
--- NOTE | 2025-04-24 07:34 | PC.NURSE ---
0600 Shift Summary.? ?Patient? remains stable throughout the shift, no signs/ symptoms of GI bleeding. Able to titrated FiO2 down to 40% on the vent with Propofol infusing for sedation. Frequent oral care provided?as patient as healing scabs on lips, mouth moisturizer applied. Pt remains NPO with PPN infusing.?Levophed titrated down to 0.07infusing as BP maintaining with a ?MAP >65 as documented. AM labs drawn and resulted to provider with Potassium and Magnesium ordered and given as documented. H/H 7.0/21.6 Carmen Miguel TILE PROFESSIONAL notified and 1 unit of PRBC ordered and infusing. Patient incontinent of urine with a male purewick in place, voiding sufficient amounts of clear yellow urine. Bed locked in lowest position, alarm on. Repositioned?q2h with wedges/pillows. See EMR/Flowsheet for further documentation. Plan of care ongoing with the continuation of attempting to decrease vent settings to meet [id number] criteria.
[2025-04-24] MEDS: Thiamine HCL 100 MG in 0.9 % Sodium Chloride 100 ML 202 MG IV (07:58)
--- NOTE | 2025-04-24 07:58 | P.PNCC_ITS ---
Subjective Subjective Date of Service: 04/24/25 Interval History: no significant overnight events Critical Care Time (minutes): 60 Physical Exam 2 Vital Signs: Vital Signs: Last Vital Signs Temp 97.9 F 04/24/25 07:02 Pulse 86 04/24/25 07:02 Resp 17 04/24/25 07:02 BP 105/62 04/24/25 07:02 Pulse Ox 93 04/24/25 07:00 O2 Del Method Mechanical Ventil ation 04/24/25 07:00 O2 Flow Rate 55 04/21/25 07:57 FiO2 40 04/24/25 07:40 BMI result Body Mass Index 27.6 Const: Other: intubated, sedated; no appreciable spontaneous movements General: no acute distress and well developed HEENT: Head: Yes normal to inspection, Yes normocephalic and Yes atraumatic Eyes: General: appearance normal, both eyes and all related structures Neck: Neck: Yes normal visual inspection, Yes full ROM, Yes no meningeal signs, Yes trachea midline and Yes supple Chest: Chest palpation & inspection: normal inspection of the chest Resp: Other: no appreciable overt rales, rhonchi, wheezing Effort & Inspection: normal respiratory effort Cardio: Rate: regular rate Rhythm: regular rhythm GI: Inspection: Yes normal to inspection, No Abdominal wall edema and No distended Palpation (GI): Soft to palpation, not firm, nontender, no guarding and not rigid Skin: General skin exam: no rashes or lesions noted Neuro: General: tone normal and no meningeal signs Extrem: Other: appreciable trace pitting edema to bilateral shins General: Yes normal to inspection, Yes full ROM and Yes capillary refill normal Psych: Other: unable to assess Objective Data Labs 04/24/25 04:45 04/24/25 04:45 Labs: Laboratory Results - last 24 hr 04/20/25 04/21/25 04/23/25 08:31 06:40 12:24 WBC RBC Hgb Hct MCV MCH MCHC RDW Plt Count MPV Immature Gran % (Auto) Neut % (Auto) Lymph % (Auto) [place] % (Auto) Eos % (Auto) Baso % (Auto) Lymph # (Auto) [place] # (Auto) Eos # (Auto) Baso # (Auto) Abs Immat Gran (auto) Absolute Neuts (auto) Absolute Nucleated RBC Nucleated RBC % (auto) Smear Tech's Comments Smear Path Review SEE NOTE VBG pH VBG pCO2 VBG pO2 VBG HCO3 VBG O2 Saturation VBG Base Excess Sodium Potassium Chloride Carbon Dioxide Anion Gap BUN Creatinine Estim Creat Clear Calc Estimated GFR POC Glucose 158 H Random Glucose Calcium Phosphorus Magnesium Albumin Blood Type Antibody Screen Crossmatch See Detail 04/23/25 04/23/25 04/23/25 16:42 21:43 23:58 WBC RBC Hgb Hct MCV MCH MCHC RDW Plt Count MPV Immature Gran % (Auto) Neut % (Auto) Lymph % (Auto) [place] % (Auto) Eos % (Auto) Baso % (Auto) Lymph # (Auto) [place] # (Auto) Eos # (Auto) Baso # (Auto) Abs Immat Gran (auto) Absolute Neuts (auto) Absolute Nucleated RBC Nucleated RBC % (auto) Smear Tech's Comments Smear Path Review VBG pH VBG pCO2 VBG pO2 VBG HCO3 VBG O2 Saturation VBG Base Excess Sodium Potassium Chloride Carbon Dioxide Anion Gap BUN Creatinine Estim Creat Clear Calc Estimated GFR POC Glucose 154 H 170 H Random Glucose Calcium Phosphorus Magnesium Albumin 3.7 Blood Type Antibody Screen Crossmatch 04/24/25 04/24/25 04/24/25 04:45 04:51 05:28 WBC 9.6 RBC 2.17 L Hgb 7.0 L* Hct 21.6 L MCV 99.5 H MCH 32.3 MCHC 32.4 RDW 21.0 H Plt Count 67 L MPV 10.2 Immature Gran % (Auto) 2.0 H Neut % (Auto) 71.9 Lymph % (Auto) 14.2 L [place] % (Auto) 8.6 Eos % (Auto) 3.0 Baso % (Auto) 0.3 Lymph # (Auto) 1.4 [place] # (Auto) 0.8 Eos # (Auto) 0.3 Baso # (Auto) 0.0 Abs Immat Gran (auto) 0.19 H Absolute Neuts (auto) 6.9 Absolute Nucleated RBC 0.130 H Nucleated RBC % (auto) 1.4 H Smear Tech's Comments VERIFIED Smear Path Review VBG pH 7.65 H* VBG pCO2 39 VBG pO2 159 VBG HCO3 43 H VBG O2 Saturation 100.0 VBG Base Excess 21.2 Sodium 142 Potassium 2.7 L* Chloride 96 Carbon Dioxide 33 H Anion Gap 16 BUN 17 H Creatinine 1.35 Estim Creat Clear Calc 55.2 Estimated GFR 53 POC Glucose 173 H Random Glucose 160 H Calcium 9.5 D Phosphorus 2.8 Magnesium 1.3 L* Albumin 3.7 Blood Type A Negative Antibody Screen NEGATIVE Crossmatch See Detail Microbiology Microbiology Results: Microbiology 04/21/25 10:38 Blood - Venous Blood Culture - Preliminary No growth after 48 hours. 04/21/25 10:34 Blood - Venous Blood Culture - Preliminary No growth after 48 hours. 04/16/25 15:05 Blood - Venous Blood Culture - Final No growth after 5 days. 04/16/25 15:00 Blood - Venous Blood Culture - Final Coag negative Staphylococcus Progress Note: A&P Assessment and plan (1) Acute respiratory failure with hypoxia: Status: Acute (2) Aspiration pneumonia: Status: Acute Plan Patient is a 64 Y M w/ alcohol misuse c/b prior alcohol withdrawal seizures presenting to ED on 04/16 s/p recurrent falls, c/f withdrawal seizure, initially?admitted medicine; hospital course c/b upper GI bleed c/b aspiration and acute hypoxic respiratory failure; on 04/21, patient w/ worsening acute hypoxic respiratory?failure necessitating intubation; ICU course c/b shock N: intubated, sedated w/ propofol gtt, wean as tolerated CV: shock, norepinephrine gtt, wean as tolerated R: acute hypoxic respiratory failure d/t aspiration pneumonia, intubated 04/21, wean as tolerated GI: upper GI bleed d/t esophagitis, portal hypertensive gastropathy, stable; NPO, TPN : acute renal insufficiency, to monitor renal indices/electrolytes H: acute blood loss anemia d/t upper GI bleed, transfuse?as needed; to avoid chemical DVT prophylaxis in setting of upper GI bleed, mechanical devices ID: c/f aspiration pneumonia, empiric zosyn; to follow-up BCx 04/21 E: to monitor hypo-/hyper-glycemia P: alcohol misuse S: daily updates given to brother/HCP Quality Stroke Does the patient have a stroke diagnosis?: No VTE Prior VTE?: No VTE Risk Level:: Medical - moderate - high VTE Device Contraindication: N/A - Device Ordered VTE Drug Contraindication: Treatment Not Tolerated
[2025-04-24] MEDS: Furosemide 20 MG/2 ML VIAL IVPUSH ×2 (07:59→17:30)
[2025-04-24] MEDS: Chlorhexidine Gluc Oral Rinse 15 ML MOUTHWASH BUCCAL ×3 (07:59→20:34)
--- NOTE | 2025-04-24 09:49 | MHC.CLN ---
F/U REMAINS INTUBATED AND SEDATED REVIEWED LABS DISCUSSED WITH PHARMACY CONTINUE PPN AT MAX GOAL RATE OF 80ML PER HOUR WITH 85G LIPIDS PROVIDES 1829 KCALS (1958 TOTAL KCALS WITH PPN AND SEDATION; 25KCALS/KG), 82G PROTEIN (1.2G/KG), 192G DEXTROSE REPLETE LYTES NEEDED
[2025-04-24 11:23] LABS: Glucose, Whole Blood 158 mg/dL (60-115)
--- NOTE | 2025-04-24 14:44 | P.ACPN_ITS ---
Advanced Care Planning Note Advanced Care Planning Note Discussed with: family member(s) Time spent (in minutes): 30 Narrative: I spoke with Mr. Corley's [id number], Veronique, on the phone this morning; I offered updates and clarifications; we discussed Mr. De Santiagos clinical status, specifically his respiratory failure, and discussed the plan to decrease sedation and attempt to allow Mr. Corley to initiate his own breaths on the ventilator on a daily basis; Veronique asked regarding potential next steps if Mr. De Santiagos clinical status does not improve; we discussed tracheostomy, after which Veronique stated that Mr. Corley's family believe tracheostomy would not be an i ntervention that Mr. Corley would tolerate; we discussed that we will continue to perform daily awakening/breathing trials and ongoing [id number] converstaions Problems Discussed (1) Acute respiratory failure with hypoxia: (2) Aspiration pneumonia:
--- NOTE | 2025-04-24 16:13 | P.CDIM_ITS ---
PROVIDER RESPONSE TEXT: To clarify, the appropriate diagnosis supported by the clinical indicators: Acute kidney insufficiency QUERY TEXT: PHYSICIAN'S DOCUMENTATION REQUEST Date of Query: 04/24/2025 08:35 AM EDT Patient Name: Pranay Corley Admit Date: 04/16/2025 Dear Radha Meeks MD, A review of the medical record indicates additional documentation may be needed. Please review below and update the documentation accordingly. Clinical Indicators: ICU progress note 04/21/25 - 04/22/25 - Acute kidney injury possibly secondary to systemic inflammatory response syndrome. Baseline creatinine 0.6 2 days ago, creatinine today is 1.2 Monitor I & O's ICU progress note dated 04/23/25 - 04/24/25 - Acute renal insufficiency, to monitor renal indices/electrolytes. Please clarify which of the following accurately represents the patient's renal status: Clarity. Acute kidney injury Acute kidney insufficiency Other (explain) Clinically unable to determine (explain) Thank you, Shweta Orourke, CCS, CDIS Use of terms such as suspected, likely, concern for, or probable (associated with a specific diagnosis that is being evaluated, monitored, or treated as if it exists) are acceptable and can be coded in the inpatient setting, when documented at the time of discharge. Please use your independent medical judgment in providing your response. THIS QUERY IS PART OF THE PERMANENT MEDICAL RECORD
--- NOTE | 2025-04-24 16:16 | P.CDIM_ITS ---
PROVIDER RESPONSE TEXT: To clarify, the appropriate diagnosis supported by the clinical indicators: Hypomagnesemia QUERY TEXT: PHYSICIAN'S DOCUMENTATION REQUEST Date of Query: 04/24/2025 08:45 AM EDT Patient Name: Pranay Corley Admit Date: 04/16/2025 Dear Radha Meeks MD, A review of the medical record indicates additional documentation may be needed. Please review below and update the documentation accordingly. Clinical Indicators: LABS: magnesium 1.3 L* IV Magnesium Sulfate Based on the above, is there a diagnosis that correlates with these findings? Hypomagnesemia Labs indicate a diagnosis of (please specify) Other (explain) Clinically unable to determine (explain) Thank you, Shweta Orourke, CCS, CDIS Use of terms such as suspected, likely, concern for, or probable (associated with a specific diagnosis that is being evaluated, monitored, or treated as if it exists) are acceptable and can be coded in the inpatient setting, when documented at the time of discharge. Please use your independent medical judgment in providing your response. THIS QUERY IS PART OF THE PERMANENT MEDICAL RECORD
[2025-04-24 17:38] LABS: Glucose, Whole Blood 170 mg/dL (60-115)
[2025-04-24] MEDS: Parenteral Nutrition 1,920 ML 80 ML IV (20:16)
[2025-04-24 20:54] LABS: Hematocrit 26.0 % (42.0-52.0); Hemoglobin 8.8 g/dl (14.0-18.0); Mean Corpuscular HGB Conc 33.8 g/dl (31.0-36.0); Mean Corpuscular Hemoglobin 32.8 pg (27.0-33.0); Mean Corpuscular Volume 97.0 fL (80.0-98.0); NRBC Abs Auto 0.100 X10*3/uL (0.0-0.012); NRBC Pct Auto 0.9 /100WBC (0.0-0.2); Platelet Count 62 X10*3/uL (160-400); Red Blood Count 2.68 X10*6/uL (4.60-5.80); White Blood Count 11.1 X10*3/uL (4.8-10.8)
[2025-04-24 20:57] LABS: Anion Gap 14 (12-20); Blood Urea Nitrogen 21 mg/dL (9-16); Calcium 9.7 mg/dL (8.4-10.2); Carbon Dioxide 36 mmol/L (22-29); Chloride 93 mmol/L (96-108); Creatinine Clr Calc Pharmacy 55.6; Estimated Glomerular Filt Rate 53; Magnesium 1.3 mg/dL (1.6-2.6); Potassium 2.5 mmol/L (3.3-5.1); Sodium 140 mmol/L (135-145)
[2025-04-24 23:55] LABS: Glucose, Whole Blood 172 mg/dL (60-115)
[2025-04-25] VITALS (35 sets, daily range): BP systolic 86–131; BP diastolic 56–80; PULSE 73–91; RESP 4–23; TEMP 35–38.3; O2SAT 90–96; BMI 26.2
[2025-04-25] MEDS: Potassium Chloride/H20 10 MEQ/100 ML PIGGYBACK 100 MEQ IV (00:31)
[2025-04-25] MEDS: 0.9 % Sodium Chloride Flush 3 ML SYRINGE IVFLUSH ×3 (00:33→15:41)
[2025-04-25 05:50] LABS: VBG HCO3 41 mmol/L (22-26); VBG O2 % Saturation 98.0 %
[2025-04-25 06:06] LABS: Glucose, Whole Blood 189 mg/dL (60-115)
[2025-04-25 06:24] LABS: Hematocrit 26.4 % (42.0-52.0); Hemoglobin 8.9 g/dl (14.0-18.0); Mean Corpuscular HGB Conc 33.7 g/dl (31.0-36.0); Mean Corpuscular Hemoglobin 33.0 pg (27.0-33.0); Mean Corpuscular Volume 97.8 fL (80.0-98.0); NRBC Abs Auto 0.080 X10*3/uL (0.0-0.012); NRBC Pct Auto 0.7 /100WBC (0.0-0.2); Platelet Count 59 X10*3/uL (160-400); Red Blood Count 2.70 X10*6/uL (4.60-5.80); White Blood Count 11.3 X10*3/uL (4.8-10.8)
[2025-04-25 06:33] LABS: Albumin Level 3.1 g/dL (3.5-5.0)
[2025-04-25 06:47] LABS: Anion Gap 14 (12-20); Blood Urea Nitrogen 24 mg/dL (9-16); Calcium 9.9 mg/dL (8.4-10.2); Carbon Dioxide 35 mmol/L (22-29); Chloride 91 mmol/L (96-108); Creatinine Clr Calc Pharmacy 54.2; Estimated Glomerular Filt Rate 57; Magnesium 1.6 mg/dL (1.6-2.6); Potassium 2.5 mmol/L (3.3-5.1); Sodium 137 mmol/L (135-145)
[2025-04-25 06:51] LABS: Venous Blood Gas Refer to POC result
[2025-04-25 07:10] LABS: Atypical Lymph Absolute Manual 0.1 x10*3/uL; Atypical Lymphs Percent Manual 1 % (0-6); Band Neutrophils Percent 17 % (3-5); Eosinophils Absolute Manual 0.3 X10*3/uL (0.0-0.4); Eosinophils Percent Manual 3 % (0-4); Lymphocytes Absolute Manual 1.0 X10*3/uL (1.2-4.9); Lymphocytes Percent Manual 9 % (20-40); Metamyelocytes Absolute 0.1 X10*3/uL; Metamyelocytes Percent 1 %; Monocytes Absolute Manual 0.5 X10*3/uL (0.1-1.2); Monocytes Percent Manual 4 % (2-11); Neutrophils Absolute Manual 9.3 X10*3/uL (2.0-8.3); Neutrophils Percent Manual 65 % (45-73)
[2025-04-25 07:15] LABS: Ammonia 56 umol/L (13-55)
[2025-04-25 07:23] LABS: Basophilic Stippling 1+ (0-2) /OIF; Hypochromasia 1+ (5-14) /OIF; Macrocytosis 1+ (5-14) /OIF; Polychromasia 1+ (0-2) /OIF; RBC Morphology NOTED; Target Cells 1+ (5-14) /OIF
[2025-04-25 07:24] LABS: Toxic Granulation PRESENT; Toxic Vacuolation PRESENT
--- NOTE | 2025-04-25 07:30 | P.PNCC_ITS ---
Subjective Subjective Date of Service: 04/25/25 Interval History: no significant overnight events Critical Care Time (minutes): 60 Physical Exam 2 Vital Signs: Vital Signs: Last Vital Signs Temp 96.4 F L 04/25/25 06:00 Pulse 80 04/25/25 06:00 Resp 18 04/25/25 06:00 BP 101/63 04/25/25 06:00 Pulse Ox 93 04/25/25 06:00 O2 Del Method Mechanical Ventil ation 04/25/25 06:00 O2 Flow Rate 55 04/21/25 07:57 FiO2 35 04/25/25 06:00 BMI result Body Mass Index 26.2 Const: Other: intubated, sedated; appreciable grimacing, no appreciable purposeful movements General: comfortable, no acute distress and well developed HEENT: Head: Yes normal to inspection, Yes normocephalic and Yes atraumatic Eyes: General: appearance normal, both eyes and all related structures Neck: Neck: Yes normal visual inspection, Yes full ROM, Yes no meningeal signs, Yes trachea midline and Yes supple Chest: Chest palpation & inspection: normal inspection of the chest Resp: Other: some appreciable rhonchi throughout; no appreciable rales, wheezing Effort & Inspection: normal respiratory effort Cardio: Rate: regular rate Rhythm: regular rhythm GI: Inspection: Yes normal to inspection, No Abdominal wall edema and No distended Palpation (GI): Soft to palpation, not firm, nontender, no guarding and not rigid Skin: General skin exam: no rashes or lesions noted Neuro: General: tone normal and no meningeal signs Extrem: Other: appreciable trace pitting edema to bilateral shins General: Yes normal to inspection, Yes full ROM and Yes capillary refill normal Psych: Other: unable to assess Objective Data Labs 04/25/25 05:36 04/25/25 05:36 Labs: Laboratory Results - last 24 hr 04/24/25 04/24/25 04/24/25 04:45 11:14 17:31 WBC RBC Hgb Hct MCV MCH MCHC RDW Plt Count MPV Immature Gran % (Auto) Neut % (Auto) Lymph % (Auto) [place] % (Auto) Eos % (Auto) Baso % (Auto) Lymph # (Auto) [place] # (Auto) Eos # (Auto) Baso # (Auto) Abs Immat Gran (auto) Absolute Neuts (auto) Absolute Nucleated RBC Nucleated RBC % (auto) Neutrophils % (Manual) Band Neutrophils % Lymphocytes % (Manual) Atypical Lymphs % (Man) Monocytes % (Manual) Eosinophils % (Manual) Metamyelocytes % Abs Neuts (Manual) Lymphocytes # (Manual) Atyp Lymphs # (Manual) Monocytes # (Manual) Eosinophils # (Manual) Metamyelocytes # Toxic Granulation Toxic Vacuolation Platelet Estimate Plt Morphology Comment RBC Morphology Polychromasia Hypochromasia Basophilic Stippling Macrocytosis Target Cells VBG pH VBG pCO2 VBG pO2 VBG HCO3 VBG O2 Saturation VBG Base Excess Sodium Potassium Chloride Carbon Dioxide Anion Gap BUN Creatinine Estim Creat Clear Calc Estimated GFR POC Glucose 158 H 170 H Random Glucose Calcium Phosphorus Magnesium Ammonia Albumin Crossmatch See Detail 04/24/25 04/24/25 04/25/25 20:13 23:51 05:36 WBC 11.1 H 11.3 H RBC 2.68 L D 2.70 L Hgb 8.8 L D 8.9 L Hct 26.0 L D 26.4 L MCV 97.0 97.8 MCH 32.8 33.0 MCHC 33.8 33.7 RDW 21.4 H 21.8 H Plt Count 62 L 59 L MPV 11.0 10.7 Immature Gran % (Auto) Cancelled Neut % (Auto) Cancelled Lymph % (Auto) Cancelled [place] % (Auto) Cancelled Eos % (Auto) Cancelled Baso % (Auto) Cancelled Lymph # (Auto) Cancelled [place] # (Auto) Cancelled Eos # (Auto) Cancelled Baso # (Auto) Cancelled Abs Immat Gran (auto) Cancelled Absolute Neuts (auto) Cancelled Absolute Nucleated RBC 0.100 H 0.080 H Nucleated RBC % (auto) 0.9 H 0.7 H Neutrophils % (Manual) 65 Band Neutrophils % 17 H Lymphocytes % (Manual) 9 L Atypical Lymphs % (Man) 1 Monocytes % (Manual) 4 Eosinophils % (Manual) 3 Metamyelocytes % 1 Abs Neuts (Manual) 9.3 H Lymphocytes # (Manual) 1.0 L Atyp Lymphs # (Manual) 0.1 Monocytes # (Manual) 0.5 Eosinophils # (Manual) 0.3 Metamyelocytes # 0.1 Toxic Granulation PRESENT Toxic Vacuolation PRESENT Platelet Estimate DECREASED Plt Morphology Comment NORMAL RBC Morphology NOTED Polychromasia 1+ (0-2) Hypochromasia 1+ (5-14) Basophilic Stippling 1+ (0-2) Macrocytosis 1+ (5-14) Target Cells 1+ (5-14) VBG pH VBG pCO2 VBG pO2 VBG HCO3 VBG O2 Saturation VBG Base Excess Sodium 140 137 Potassium 2.5 L* 2.5 L* Chloride 93 L 91 L Carbon Dioxide 36 H 35 H Anion Gap 14 14 BUN 21 H 24 H Creatinine 1.34 1.27 Estim Creat Clear Calc 55.6 54.2 Estimated GFR 53 57 POC Glucose 172 H Random Glucose 169 H 192 H Calcium 9.7 9.9 Phosphorus 2.5 L 2.5 L Magnesium 1.3 L* 1.6 Ammonia 56 H Albumin 3.1 L Crossmatch 04/25/25 04/25/25 05:47 06:02 WBC RBC Hgb Hct MCV MCH MCHC RDW Plt Count MPV Immature Gran % (Auto) Neut % (Auto) Lymph % (Auto) [place] % (Auto) Eos % (Auto) Baso % (Auto) Lymph # (Auto) [place] # (Auto) Eos # (Auto) Baso # (Auto) Abs Immat Gran (auto) Absolute Neuts (auto) Absolute Nucleated RBC Nucleated RBC % (auto) Neutrophils % (Manual) Band Neutrophils % Lymphocytes % (Manual) Atypical Lymphs % (Man) Monocytes % (Manual) Eosinophils % (Manual) Metamyelocytes % Abs Neuts (Manual) Lymphocytes # (Manual) Atyp Lymphs # (Manual) Monocytes # (Manual) Eosinophils # (Manual) Metamyelocytes # Toxic Granulation Toxic Vacuolation Platelet Estimate Plt Morphology Comment RBC Morphology Polychromasia Hypochromasia Basophilic Stippling Macrocytosis Target Cells VBG pH 7.63 H* VBG pCO2 39 VBG pO2 81 VBG HCO3 41 H VBG O2 Saturation 98.0 VBG Base Excess 19.2 Sodium Potassium Chloride Carbon Dioxide Anion Gap BUN Creatinine Estim Creat Clear Calc Estimated GFR POC Glucose 189 H Random Glucose Calcium Phosphorus Magnesium Ammonia Albumin Crossmatch Microbiology Microbiology Results: Microbiology 04/21/25 10:38 Blood - Venous Blood Culture - Preliminary No growth after 48 hours. 04/21/25 10:34 Blood - Venous Blood Culture - Preliminary No growth after 48 hours. 04/16/25 15:05 Blood - Venous Blood Culture - Final No growth after 5 days. 04/16/25 15:00 Blood - Venous Blood Culture - Final Coag negative Staphylococcus Progress Note: A&P Assessment and plan (1) Acute respiratory failure with hypoxia: Status: Acute (2) Aspiration pneumonia: Status: Acute Plan Patient is a 64 Y M w/ alcohol misuse c/b prior alcohol withdrawal seizures presenting to ED on 04/16 s/p recurrent falls, c/f withdrawal seizure, initially?admitted medicine; hospital course c/b upper GI bleed c/b aspiration and acute hypoxic respiratory failure; on 04/21, patient w/ worsening acute hypoxic respiratory?failure necessitating intubation; ICU course c/b shock N: intubated, sedated w/ propofol gtt, wean as tolerated CV: hypotension, likely d/t sedation, norepinephrine gtt, wean as tolerated R: acute hypoxic respiratory failure d/t aspiration pneumonia, intubated 04/21, wean as tolerated GI: upper GI bleed d/t esophagitis, portal hypertensive gastropathy, stable; NPO, TPN : acute renal insufficiency, to monitor renal indices/electrolytes H: acute blood loss anemia d/t upper GI bleed, transfuse?as needed; to avoid chemical DVT prophylaxis in setting of upper GI bleed, mechanical devices ID: c/f aspiration pneumonia, empiric zosyn; to follow-up BCx 04/21 E: to monitor hypo-/hyper-glycemia P: alcohol misuse S: daily updates given to brother/HCP Quality Stroke Does the patient have a stroke diagnosis?: No VTE Prior VTE?: No VTE Risk Level:: Medical - moderate - high VTE Device Contraindication: N/A - Device Ordered VTE Drug Contraindication: Treatment Not Tolerated
[2025-04-25] MEDS: Potassium Phosphate/NS 15 MMOL/250 ML PLAST..BAG 62.5 MMOL IV (09:09)
[2025-04-25] MEDS: Albumin Human 25 % 50 ML 100 ML IV (09:21)
[2025-04-25] MEDS: Chlorhexidine Gluc Oral Rinse 15 ML MOUTHWASH BUCCAL ×3 (09:21→21:52)
[2025-04-25] MEDS: Furosemide 20 MG/2 ML VIAL IVPUSH ×2 (09:21→17:31)
--- NOTE | 2025-04-25 10:17 | MHC.CLN ---
F/U REMAINS INTUBATED AND SEDATED REVIEWED LABS DISCUSSED WITH PHARMACY CONTINUE PPN AT MAX GOAL RATE OF 80ML PER HOUR WITH 85G LIPIDS PROVIDES 1829 KCALS (27 KCALS/KG), 82G PROTEIN (1.2G/KG), 192G DEXTROSE REPLETE LYTES NEEDED
[2025-04-25] MEDS: Thiamine HCL 100 MG in 0.9 % Sodium Chloride 100 ML 202 MG IV (10:42)
[2025-04-25 12:02] LABS: Glucose, Whole Blood 207 mg/dL (60-115)
--- NOTE | 2025-04-25 13:23 | W.MHC.ACPN ---
Advanced Care Planning Note Advanced Care Planning Note Discussed with: family member(s) Time spent (in minutes): 30 Narrative: I met Mr. Gonzalez brother and [id number] at the bedside; I offered updates and clarifications; we discussed code status, after which Mr. De Santiagos brother and [id number] expressed concern that CPR may cause more harm than good, and their primary concern is not causing more suffering to Mr. Corley; they described Mr. De Santiagos quality of life to be poor for many years prior to this admission, that he has struggled with alcoholism and without a permanent home for some time, and have discussed Mr. Corley's [id number] many times amongst themselves; given such, Mr. Gonzalez brother and [id number] feel that Mr. Corley's code status should be changed to DNR at this time Problems Discussed (1) Acute respiratory failure with hypoxia: (2) Aspiration pneumonia:
--- NOTE | 2025-04-25 14:48 | MHC.CM.PN ---
EMR REVIEWED AND PER ICU ROUNDS, PATIENT REMAINS ON VENTILATORY SUPPORT AT THIS TIME. ADVANCED CARE PLAN MEETING WITH ICU MD AND PATIENTS HCP'S TOOK PLACE, DECISION WAS MADE TO CHANGE PATIENTS CODE STATUS TO DNR.
[2025-04-25 17:30] LABS: Glucose, Whole Blood 205 mg/dL (60-115)
--- NOTE | 2025-04-25 18:14 | PC.NURSE ---
Assumed care at 0700. Upon initial assessment, pt intubated & on levophed, propofol, and PPN drips. Propofol stopped at 0747. RT placed pt on PSV of 14/8 with fio2 of 35% at 0820. At 0930, pt opens eyes to voice, does not track or follow commands. At 1100, same response. At 1110, RT placed pt back on acvc+ settings. Family updated at bedside by song writer and MD. See MAR and assessments for further details. Pt repositioned q2hr as tolerated. Fall & safety precautions in place.
[2025-04-25] MEDS: Parenteral Nutrition 1,920 ML 80 ML IV (21:52)
[2025-04-25 23:41] LABS: Glucose, Whole Blood 199 mg/dL (60-115)
[2025-04-26] VITALS (38 sets, daily range): BP systolic 91–144; BP diastolic 53–78; PULSE 79–123; RESP 12–20; TEMP 34.2–37.5; O2SAT 90–97; BMI 26.9
[2025-04-26] MEDS: 0.9 % Sodium Chloride Flush 3 ML SYRINGE IVFLUSH ×3 (00:27→14:47)
[2025-04-26 05:43] LABS: Glucose, Whole Blood 205 mg/dL (60-115)
[2025-04-26 06:09] LABS: Hemoglobin 9.2 g/dl (14.0-18.0); NRBC Abs Auto 0.040 X10*3/uL (0.0-0.012); NRBC Pct Auto 0.4 /100WBC (0.0-0.2); PLT CLUMP 1; SCAN SMEAR FLAG 1
[2025-04-26 06:11] LABS: Hematocrit 27.2 % (42.0-52.0); Imm Gran Abs Auto 0.11 X10*3/uL (0.00-0.03); Imm Gran Pct Auto 1.0 % (0.0-0.4); Lymphocytes Absolute Auto 1.4 X10*3/uL (1.2-4.9); MANUAL DIFF FLAG SCAN; Mean Corpuscular HGB Conc 33.8 g/dl (31.0-36.0); Mean Corpuscular Hemoglobin 33.3 pg (27.0-33.0); Mean Corpuscular Volume 98.6 fL (80.0-98.0); Red Blood Count 2.76 X10*6/uL (4.60-5.80)
[2025-04-26 06:12] LABS: Platelet Count 60 X10*3/uL (160-400); White Blood Count 10.5 X10*3/uL (4.8-10.8)
[2025-04-26 06:25] LABS: Albumin Level 3.0 g/dL (3.5-5.0); Anion Gap 18 (12-20); Blood Urea Nitrogen 29 mg/dL (9-16); Calcium 9.4 mg/dL (8.4-10.2); Carbon Dioxide 34 mmol/L (22-29); Chloride 89 mmol/L (96-108); Creatinine Clr Calc Pharmacy 51.7; Estimated Glomerular Filt Rate 54; Magnesium 1.1 mg/dL (1.6-2.6); Potassium 2.5 mmol/L (3.3-5.1); Sodium 138 mmol/L (135-145)
--- NOTE | 2025-04-26 06:28 | PM.CCPN ---
Subjective Subjective Date of Service: 04/26/25 Interval History: no significant overnight events; persistent encephalopathy Critical Care Time (minutes): 60 Physical Exam Vital Signs: Vital Signs: Last Vital Signs Temp 99.5 F 04/26/25 06:00 Pulse 94 04/26/25 06:00 Resp 19 04/26/25 06:00 BP 108/66 04/26/25 06:00 Pulse Ox 92 04/26/25 06:00 O2 Del Method Mechanical Ventil ation 04/26/25 06:00 O2 Flow Rate 35 04/26/25 05:00 FiO2 35 04/26/25 06:00 BMI result Body Mass Index 26.2 Const: Other: intubated, minimally sedated; no appreciable spontaneous movements; no appreciable movements to noxious stimulus General: comfortable, no acute distress and well developed HEENT: Head: Yes normal to inspection, Yes normocephalic and Yes atraumatic Eyes: General: appearance normal, both eyes and all related structures Neck: Neck: Yes normal visual inspection, Yes full ROM, Yes no meningeal signs, Yes trachea midline and Yes supple Chest: Chest palpation & inspection: normal inspection of the chest Resp: Other: no appreciable overt rales, rhonchi, wheezing Effort & Inspection: normal respiratory effort Cardio: Rate: regular rate Rhythm: regular rhythm GI: Inspection: Yes normal to inspection, No Abdominal wall edema and No distended Palpation (GI): Soft to palpation, not firm, nontender, no guarding and not rigid Skin: General skin exam: no rashes or lesions noted Neuro: General: tone normal and no meningeal signs Extrem: Other: appreciable trace pitting edema to bilateral shins General: Yes normal to inspection, Yes full ROM and Yes capillary refill normal Psych: Other: unable to assess Objective Data Labs 04/26/25 04:55 04/26/25 04:55 Labs: Laboratory Results - last 24 hr 04/25/25 04/25/25 04/25/25 05:36 12:00 17:27 WBC 11.3 H RBC 2.70 L Hgb 8.9 L Hct 26.4 L MCV 97.8 MCH 33.0 MCHC 33.7 RDW 21.8 H Plt Count 59 L MPV 10.7 Immature Gran % (Auto) Cancelled Neut % (Auto) Cancelled Lymph % (Auto) Cancelled Gaines % (Auto) Cancelled Eos % (Auto) Cancelled Baso % (Auto) Cancelled Lymph # (Auto) Cancelled Gaines # (Auto) Cancelled Eos # (Auto) Cancelled Baso # (Auto) Cancelled Abs Immat Gran (auto) Cancelled Absolute Neuts (auto) Cancelled Absolute Nucleated RBC 0.080 H Nucleated RBC % (auto) 0.7 H Neutrophils % (Manual) 65 Band Neutrophils % 17 H Lymphocytes % (Manual) 9 L Atypical Lymphs % (Man) 1 Monocytes % (Manual) 4 Eosinophils % (Manual) 3 Metamyelocytes % 1 Abs Neuts (Manual) 9.3 H Lymphocytes # (Manual) 1.0 L Atyp Lymphs # (Manual) 0.1 Monocytes # (Manual) 0.5 Eosinophils # (Manual) 0.3 Metamyelocytes # 0.1 Toxic Granulation PRESENT Toxic Vacuolation PRESENT Platelet Estimate DECREASED Plt Morphology Comment NORMAL RBC Morphology NOTED Polychromasia 1+ (0-2) Hypochromasia 1+ (5-14) Basophilic Stippling 1+ (0-2) Macrocytosis 1+ (5-14) Target Cells 1+ (5-14) Sodium 137 Potassium 2.5 L* Chloride 91 L Carbon Dioxide 35 H Anion Gap 14 BUN 24 H Creatinine 1.27 Estim Creat Clear Calc 54.2 Estimated GFR 57 POC Glucose 207 H 205 H Random Glucose 192 H Calcium 9.9 Phosphorus 2.5 L Magnesium 1.6 Ammonia 56 H Albumin 3.1 L 04/25/25 04/26/25 04/26/25 23:32 04:55 05:39 WBC RBC Hgb Hct MCV MCH MCHC RDW Plt Count MPV Not Reportable Immature Gran % (Auto) Neut % (Auto) Lymph % (Auto) Gaines % (Auto) Eos % (Auto) Baso % (Auto) Lymph # (Auto) Gaines # (Auto) Eos # (Auto) Baso # (Auto) Abs Immat Gran (auto) Absolute Neuts (auto) Absolute Nucleated RBC Nucleated RBC % (auto) Neutrophils % (Manual) Band Neutrophils % Lymphocytes % (Manual) Atypical Lymphs % (Man) Monocytes % (Manual) Eosinophils % (Manual) Metamyelocytes % Abs Neuts (Manual) Lymphocytes # (Manual) Atyp Lymphs # (Manual) Monocytes # (Manual) Eosinophils # (Manual) Metamyelocytes # Toxic Granulation Toxic Vacuolation Platelet Estimate Plt Morphology Comment RBC Morphology Polychromasia Hypochromasia Basophilic Stippling Macrocytosis Target Cells Sodium 138 Potassium 2.5 L* Chloride 89 L Carbon Dioxide 34 H Anion Gap 18 BUN 29 H Creatinine 1.33 Estim Creat Clear Calc 51.7 Estimated GFR 54 POC Glucose 199 H 205 H Random Glucose 197 H Calcium 9.4 Phosphorus 3.7 Magnesium 1.1 L* Ammonia Albumin 3.0 L Microbiology Microbiology Results: Microbiology 04/21/25 10:38 Blood - Venous Blood Culture - Preliminary No growth after 48 hours. 04/21/25 10:34 Blood - Venous Blood Culture - Preliminary No growth after 48 hours. 04/16/25 15:05 Blood - Venous Blood Culture - Final No growth after 5 days. 04/16/25 15:00 Blood - Venous Blood Culture - Final Coag negative Staphylococcus Progress Note: A&P Assessment and plan (1) Acute respiratory failure with hypoxia: Status: Acute (2) Aspiration pneumonia: Status: Acute Plan Patient is a 64 Y M w/ alcohol misuse c/b prior alcohol withdrawal seizures presenting to ED on 04/16 s/p recurrent falls, c/f withdrawal seizure, initially?admitted medicine; hospital course c/b upper GI bleed c/b aspiration and acute hypoxic respiratory failure; on 04/21, patient w/ worsening acute hypoxic respiratory?failure necessitating intubation; ICU course c/b upper GI bleed, persistent encephalopathy N: intubated, sedated w/ propofol gtt, wean as tolerated; encephalopathy, to follow-up MRI CV: hypotension, likely d/t sedation, norepinephrine gtt, wean as tolerated R: acute hypoxic respiratory failure d/t aspiration pneumonia, intubated 04/21, wean as tolerated; of note daily SAT/SBTs, though patient not awakening, following commands GI: upper GI bleed d/t esophagitis, portal hypertensive gastropathy, stable; NPO, TPN : acute renal insufficiency, to monitor renal indices/electrolytes H: acute blood loss anemia d/t upper GI bleed, transfuse?as needed; to avoid chemical DVT prophylaxis in setting of upper GI bleed, mechanical devices ID: c/f aspiration pneumonia, empiric zosyn; to follow-up BCx 04/21 E: to monitor hypo-/hyper-glycemia P: alcohol misuse S: daily updates given to brother/HCP Quality Stroke Does the patient have a stroke diagnosis?: No VTE Prior VTE?: No VTE Risk Level:: Medical - moderate - high VTE Device Contraindication: N/A - Device Ordered VTE Drug Contraindication: Treatment Not Tolerated
[2025-04-26 07:08] LABS: Glucose, Whole Blood 206 mg/dL (60-115)
--- NOTE | 2025-04-26 07:26 | PC.NURSE ---
Assumed care of pt at 1900. Pt remains sedated and intubated. Sedation adjusted per MAR for high RASS per provider. Pt remains on levophed MAP >65 during shift. Pt repo q2hr. See flowsheets and MAR for more information. Plan of care continues.
[2025-04-26] MEDS: Potassium Chloride/H20 10 MEQ/100 ML PIGGYBACK 100 MEQ IV ×6 (08:41→23:21)
[2025-04-26] MEDS: Albumin Human 25 % 50 ML 100 ML IV (08:42)
[2025-04-26] MEDS: Magnesium Sulfate/H2O 2 GM/50 ML PIGGYBACK IV ×2 (08:46→21:51)
[2025-04-26] MEDS: Chlorhexidine Gluc Oral Rinse 15 ML MOUTHWASH BUCCAL ×3 (08:50→21:21)
--- NOTE | 2025-04-26 09:54 | MHC.CLN ---
F/U REMAINS INTUBATED AND SEDATED REVIEWED LABS DISCUSSED WITH PHARMACY RECOMMEND DECREASING PPN TO 75ML PER HOUR WITH 78G LIPIDS TO PROVIDE 1698 KCALS (1957KCALS WITH SEDATION; 25 KCALS/KG), 77G PROTEIN (.9G/KG), 180G DEXTROSE REPLETE LYTES NEEDED DISCUSSED CASE WITH MD-POSSIBLE SWITCH TO OGT IF OGT PLACED, CAN START TF TRICKLE FEED JEVITY 1.2 AT 20ML/HR TO START FOLLOWING WITH TEAM
[2025-04-26 10:43] LABS: Venous Blood Gas Refer to POC result
[2025-04-26 10:49] LABS: VBG HCO3 43 mmol/L (22-26); VBG O2 % Saturation 87.0 %
[2025-04-26 11:09] LABS: Glucose, Whole Blood 154 mg/dL (60-115)
[2025-04-26] MEDS: Thiamine HCL 100 MG in 0.9 % Sodium Chloride 100 ML 202 MG IV (11:21)
[2025-04-26] MEDS: Furosemide 20 MG/2 ML VIAL IVPUSH ×2 (11:22→18:07)
--- NOTE | 2025-04-26 14:19 | MHC.CM.PN ---
Pt remains intubated and on pressor support: plans are for continued weaning of both and extubation. Original d/c plan: return to home w/roommate. CM to follow
[2025-04-26 18:00] LABS: Glucose, Whole Blood 143 mg/dL (60-115)
--- NOTE | 2025-04-26 18:24 | PC.NURSE ---
Assumed care at approx. 1030- pt. remins intubated and sedated per MAR. Pt. taken to MRI at 1700- see report. Pt. weaned off levo at 1650 for MRI per MD, IVP versed given per AUG to tolerate imaging. Pt. now attemping to open eyes to voice and following some simple commands, not tracking. Unable to tolerate PSV this shift- see vent assessment for details on vent settings. SR on tele, HR 70s-80s. Norepinephrine gtt weaned off per AUG. Male purewick in place draining dark yellow urine, 800 cc this shift. Q2 oral care and repositioning performed. Family updated via telephone by this RN. Plan of care ongoing.
[2025-04-26 21:12] LABS: Anion Gap 19 (12-20); Blood Urea Nitrogen 34 mg/dL (9-16); Calcium 9.1 mg/dL (8.4-10.2); Carbon Dioxide 30 mmol/L (22-29); Chloride 91 mmol/L (96-108); Creatinine Clr Calc Pharmacy 51.0; Estimated Glomerular Filt Rate 53; Magnesium 1.5 mg/dL (1.6-2.6); Potassium 3.3 mmol/L (3.3-5.1); Sodium 137 mmol/L (135-145)
[2025-04-26] MEDS: Parenteral Nutrition 1,800 ML 75 ML IV (21:20)
[2025-04-26 23:37] LABS: Glucose, Whole Blood 202 mg/dL (60-115)
[2025-04-27] VITALS (35 sets, daily range): BP systolic 95–118; BP diastolic 54–71; PULSE 86–111; RESP 13–25; TEMP 34.4–37.6; O2SAT 90–98; BMI 27.1
[2025-04-27] MEDS: 0.9 % Sodium Chloride Flush 3 ML SYRINGE IVFLUSH ×3 (00:35→15:42)
[2025-04-27] MEDS: Potassium Chloride/H20 10 MEQ/100 ML PIGGYBACK 100 MEQ IV ×2 (00:35→01:39)
[2025-04-27 04:55] LABS: VBG HCO3 42 mmol/L (22-26); VBG O2 % Saturation 84.0 %
[2025-04-27 04:56] LABS: Venous Blood Gas Refer to POC result
[2025-04-27 05:16] LABS: PLT CLUMP 1
[2025-04-27 05:18] LABS: Hematocrit 27.2 % (42.0-52.0); Hemoglobin 9.1 g/dl (14.0-18.0); Mean Corpuscular HGB Conc 33.5 g/dl (31.0-36.0); Mean Corpuscular Hemoglobin 33.3 pg (27.0-33.0); Mean Corpuscular Volume 99.6 fL (80.0-98.0); NRBC Abs Auto 0.030 X10*3/uL (0.0-0.012); NRBC Pct Auto 0.3 /100WBC (0.0-0.2); Red Blood Count 2.73 X10*6/uL (4.60-5.80)
[2025-04-27 05:37] LABS: Platelet Count 62 X10*3/uL (160-400); White Blood Count 10.1 X10*3/uL (4.8-10.8)
[2025-04-27 05:45] LABS: Glucose, Whole Blood 210 mg/dL (60-115)
[2025-04-27 05:48] LABS: Albumin Level 2.9 g/dL (3.5-5.0); Anion Gap 17 (12-20); Blood Urea Nitrogen 35 mg/dL (9-16); Calcium 8.6 mg/dL (8.4-10.2); Carbon Dioxide 30 mmol/L (22-29); Chloride 91 mmol/L (96-108); Creatinine Clr Calc Pharmacy 55.9; Estimated Glomerular Filt Rate 59; Magnesium 1.9 mg/dL (1.6-2.6); Potassium 4.0 mmol/L (3.3-5.1); Sodium 134 mmol/L (135-145); Triglycerides 140 mg/dL (<150)
[2025-04-27 06:19] LABS: Band Neutrophils Percent 10 % (3-5); Basophils Abs Manual 0.1 X10*3/uL (0.0-0.2); Basophils Percent Manual 1 % (0-2); Eosinophils Absolute Manual 0.2 X10*3/uL (0.0-0.4); Eosinophils Percent Manual 2 % (0-4); Lymphocytes Absolute Manual 1.6 X10*3/uL (1.2-4.9); Lymphocytes Percent Manual 16 % (20-40); Monocytes Absolute Manual 0.3 X10*3/uL (0.1-1.2); Monocytes Percent Manual 3 % (2-11); Neutrophils Absolute Manual 7.9 X10*3/uL (2.0-8.3); Neutrophils Percent Manual 68 % (45-73)
[2025-04-27 06:20] LABS: Large Platelet PRESENT; Macrocytosis 1+ (5-14) /OIF; Microcytosis 1+ (5-14) /OIF; Ovalocytes 1+ (5-14) /OIF; RBC Morphology NOTED
[2025-04-27 06:21] LABS: Basophilic Stippling 1+ (0-2) /OIF; Burr Cells 1+ (0-2) /OIF; Hypochromasia 1+ (5-14) /OIF; Polychromasia 1+ (0-2) /OIF
[2025-04-27 06:22] LABS: Toxic Granulation PRESENT; Toxic Vacuolation PRESENT
--- NOTE | 2025-04-27 07:50 | PM.CCPN ---
Subjective Subjective Date of Service: 04/27/25 Interval History: no significant overnight events; MRI brain grossly unremarkable Critical Care Time (minutes): 60 Physical Exam Vital Signs: Vital Signs: Last Vital Signs Temp 99.7 F 04/27/25 04:00 Pulse 91 04/27/25 07:00 Resp 16 04/27/25 07:00 BP 96/57 L 04/27/25 07:00 Pulse Ox 93 04/27/25 07:48 O2 Del Method Mechanical Ventil ation 04/27/25 07:00 O2 Flow Rate 35 04/26/25 05:00 FiO2 35 04/27/25 07:48 BMI result Body Mass Index 27.1 Const: Other: drowsy, though awakens w/ verbal stimulus, follows simple commands General: cooperative, healthy appearing, comfortable, no acute distress and well developed HEENT: Head: Yes normal to inspection, Yes normocephalic and Yes atraumatic Eyes: General: appearance normal, both eyes and all related structures Neck: Neck: Yes normal visual inspection, Yes full ROM, Yes no meningeal signs, Yes trachea midline and Yes supple Chest: Chest palpation & inspection: normal inspection of the chest Resp: Other: no appreciable overt rales, rhonchi, wheezing Effort & Inspection: normal respiratory effort Cardio: Rate: regular rate Rhythm: regular rhythm GI: Inspection: Yes normal to inspection, No Abdominal wall edema and No distended Palpation (GI): Soft to palpation, not firm, nontender, no guarding and not rigid Skin: General skin exam: no rashes or lesions noted Neuro: General: tone normal and no meningeal signs Extrem: Other: appreciable 1+ pitting edema to bilatearl shins General: Yes normal to inspection, Yes full ROM and Yes capillary refill normal Psych: Other: unable to assess Objective Data Labs 04/27/25 04:38 04/27/25 04:38 Labs: Laboratory Results - last 24 hr 04/26/25 04/26/25 04/26/25 04:55 11:05 17:54 WBC RBC Hgb Hct MCV MCH MCHC RDW Plt Count MPV Immature Gran % (Auto) Neut % (Auto) Lymph % (Auto) [place] % (Auto) Eos % (Auto) Baso % (Auto) Lymph # (Auto) [place] # (Auto) Eos # (Auto) Baso # (Auto) Abs Immat Gran (auto) Absolute Neuts (auto) Absolute Nucleated RBC Nucleated RBC % (auto) Neutrophils % (Manual) Band Neutrophils % Lymphocytes % (Manual) Monocytes % (Manual) Eosinophils % (Manual) Basophils % (Manual) Abs Neuts (Manual) Lymphocytes # (Manual) Monocytes # (Manual) Eosinophils # (Manual) Basophils # (Manual) Toxic Granulation Toxic Vacuolation Platelet Estimate Large Platelets Plt Morphology Comment RBC Morphology Polychromasia Hypochromasia Basophilic Stippling Microcytosis Macrocytosis Ovalocytes Smallwood Cells VBG pH 7.65 H* VBG pCO2 39 VBG pO2 56 VBG HCO3 43 H VBG O2 Saturation 87.0 VBG Base Excess 21.3 Sodium Potassium Chloride Carbon Dioxide Anion Gap BUN Creatinine Estim Creat Clear Calc Estimated GFR POC Glucose 154 H 143 H Random Glucose Calcium Phosphorus Magnesium Albumin Triglycerides 04/26/25 04/26/25 04/27/25 20:38 23:32 04:38 WBC 10.1 RBC 2.73 L Hgb 9.1 L Hct 27.2 L MCV 99.6 H MCH 33.3 H MCHC 33.5 RDW 21.3 H Plt Count 62 L MPV 11.7 Immature Gran % (Auto) Cancelled Neut % (Auto) Cancelled Lymph % (Auto) Cancelled [place] % (Auto) Cancelled Eos % (Auto) Cancelled Baso % (Auto) Cancelled Lymph # (Auto) Cancelled [place] # (Auto) Cancelled Eos # (Auto) Cancelled Baso # (Auto) Cancelled Abs Immat Gran (auto) Cancelled Absolute Neuts (auto) Cancelled Absolute Nucleated RBC 0.030 H Nucleated RBC % (auto) 0.3 H Neutrophils % (Manual) 68 Band Neutrophils % 10 H Lymphocytes % (Manual) 16 L Monocytes % (Manual) 3 Eosinophils % (Manual) 2 Basophils % (Manual) 1 Abs Neuts (Manual) 7.9 Lymphocytes # (Manual) 1.6 Monocytes # (Manual) 0.3 Eosinophils # (Manual) 0.2 Basophils # (Manual) 0.1 Toxic Granulation PRESENT Toxic Vacuolation PRESENT Platelet Estimate DECREASED Large Platelets PRESENT Plt Morphology Comment NOTED RBC Morphology NOTED Polychromasia 1+ (0-2) Hypochromasia 1+ (5-14) Basophilic Stippling 1+ (0-2) Microcytosis 1+ (5-14) Macrocytosis 1+ (5-14) Ovalocytes 1+ (5-14) Anibal Cells 1+ (0-2) VBG pH VBG pCO2 VBG pO2 VBG HCO3 VBG O2 Saturation VBG Base Excess Sodium 137 134 L Potassium 3.3 D 4.0 D Chloride 91 L 91 L Carbon Dioxide 30 H 30 H Anion Gap 19 17 BUN 34 H 35 H Creatinine 1.35 1.23 Estim Creat Clear Calc 51.0 55.9 Estimated GFR 53 59 POC Glucose 202 H Random Glucose 199 H 184 H Calcium 9.1 8.6 Phosphorus 4.2 3.7 Magnesium 1.5 L 1.9 Albumin 2.9 L Triglycerides 140 04/27/25 04/27/25 04:44 05:41 WBC RBC Hgb Hct MCV MCH MCHC RDW Plt Count MPV Immature Gran % (Auto) Neut % (Auto) Lymph % (Auto) [place] % (Auto) Eos % (Auto) Baso % (Auto) Lymph # (Auto) [place] # (Auto) Eos # (Auto) Baso # (Auto) Abs Immat Gran (auto) Absolute Neuts (auto) Absolute Nucleated RBC Nucleated RBC % (auto) Neutrophils % (Manual) Band Neutrophils % Lymphocytes % (Manual) Monocytes % (Manual) Eosinophils % (Manual) Basophils % (Manual) Abs Neuts (Manual) Lymphocytes # (Manual) Monocytes # (Manual) Eosinophils # (Manual) Basophils # (Manual) Toxic Granulation Toxic Vacuolation Platelet Estimate Large Platelets Plt Morphology Comment RBC Morphology Polychromasia Hypochromasia Basophilic Stippling Microcytosis Macrocytosis Ovalocytes Smallwood Cells VBG pH 7.64 H* VBG pCO2 39 VBG pO2 55 VBG HCO3 42 H VBG O2 Saturation 84.0 VBG Base Excess 20.1 Sodium Potassium Chloride Carbon Dioxide Anion Gap BUN Creatinine Estim Creat Clear Calc Estimated GFR POC Glucose 210 H Random Glucose Calcium Phosphorus Magnesium Albumin Triglycerides Microbiology Microbiology Results: Microbiology 04/21/25 10:38 Blood - Venous Blood Culture - Final No growth after 5 days. 04/21/25 10:34 Blood - Venous Blood Culture - Final No growth after 5 days. 04/16/25 15:05 Blood - Venous Blood Culture - Final No growth after 5 days. 04/16/25 15:00 Blood - Venous Blood Culture - Final Coag negative Staphylococcus Progress Note: A&P Assessment and plan (1) Acute respiratory failure with hypoxia: Status: Acute (2) Aspiration pneumonia: Status: Acute Plan Patient is a 64 Y M w/ alcohol misuse c/b prior alcohol withdrawal seizures presenting to ED on 04/16 s/p recurrent falls, c/f withdrawal seizure, initially?admitted medicine; hospital course c/b upper GI bleed c/b aspiration and acute hypoxic respiratory failure; on 04/21, patient w/ worsening acute hypoxic respiratory?failure necessitating intubation; ICU course c/b upper GI bleed, persistent encephalopathy N: intubated, sedated w/ propofol gtt, wean as tolerated; encephalopathy, MRI brain 04/26 grossly unremarkable, improving CV: hypotension, likely d/t sedation, norepinephrine gtt, wean as tolerated R: acute hypoxic respiratory failure d/t aspiration pneumonia, intubated 04/21, wean as tolerated; daily SAT/SBT, encephalopathy, though improving GI: upper GI bleed d/t esophagitis, portal hypertensive gastropathy, stable; NPO, TPN transition to tube feeds as tolerated : acute renal insufficiency, to monitor renal indices/electrolytes H: acute blood loss anemia d/t upper GI bleed, transfuse?as needed; to avoid chemical DVT prophylaxis in setting of upper GI bleed, mechanical devices ID: c/f aspiration pneumonia, empiric zosyn E: to monitor hypo-/hyper-glycemia P: alcohol misuse S: daily updates given to brother/HCP Quality Stroke Does the patient have a stroke diagnosis?: No VTE Prior VTE?: No VTE Risk Level:: Medical - moderate - high VTE Device Contraindication: N/A - Device Ordered VTE Drug Contraindication: Treatment Not Tolerated
[2025-04-27] MEDS: Albumin Human 25 % 50 ML 100 ML IV ×2 (08:46→09:14)
[2025-04-27] MEDS: Chlorhexidine Gluc Oral Rinse 15 ML MOUTHWASH BUCCAL ×3 (08:46→20:42)
[2025-04-27] MEDS: Thiamine HCL 100 MG in 0.9 % Sodium Chloride 100 ML 202 MG IV (08:46)
[2025-04-27] MEDS: Furosemide 20 MG/2 ML VIAL IVPUSH ×2 (08:46→17:49)
--- NOTE | 2025-04-27 09:26 | MHC.CLN ---
F/U REMAINS INTUBATED REVIEWED LABS DISCUSSED WITH PHARMACY CONTINUE PPN AT 75ML PER HOUR WITH 78G LIPIDS PROVIDES 1698 KCALS, 77G PROTEIN (.9G/KG), 180G DEXTROSE REPLETE LYTES NEEDED DISCUSSED CASE WITH MD-POSSIBLE SWITCH TO OGT IF OGT PLACED, CAN START TF TRICKLE FEED JEVITY 1.2 AT 20ML/HR TO START FOLLOWING WITH TEAM RD CAN BE REACHED VIA [facility] DURING OFF HOURS IF NEEDED
[2025-04-27 11:41] LABS: Glucose, Whole Blood 229 mg/dL (60-115)
--- NOTE | 2025-04-27 13:04 | MHC.CM.PN ---
Pt continues care in ICU: MRI from 04/26 without findings to explain encephalopathy. Continue weaning attempts. Pt from home without services. CM to follow.
[2025-04-27 17:50] LABS: Glucose, Whole Blood 224 mg/dL (60-115)
--- NOTE | 2025-04-27 18:11 | PC.NURSE ---
Assumed care at 0700- pt. remains off propofol gtt. Pt. awake, opening eyes spontaneously or with verbal stimuli, tracking, following commands, nodding head in response to questions. SR/ST on tele, HR 70s-100s. Pt. placed on PSV this AM by RT, replaced to ACVC+ settings at approx. 1600- see vent assessment. Pt. with strong and frequent cough, lavaged x3 by RT with moderate amt. thick white sputum. O2 sats remain >88% on 35% FiO2- MD aware. NPO, no OGT in place, pt recieving PPN per AUG. Male purewick in place draining bryan urine, 1300cc this shift. Q2 oral care and repositioning performed. Family updated by this RN via telephone. Plan of care ongoing.
[2025-04-27] MEDS: Parenteral Nutrition 1,800 ML 75 ML IV (20:42)
[2025-04-27 23:56] LABS: Glucose, Whole Blood 214 mg/dL (60-115)
[2025-04-28] VITALS (31 sets, daily range): BP systolic 88–116; BP diastolic 52–74; PULSE 68–103; RESP 14–43; TEMP 34.8–37.2; O2SAT 90–97; BMI 27.2
[2025-04-28] MEDS: 0.9 % Sodium Chloride Flush 3 ML SYRINGE IVFLUSH ×2 (00:44→23:09)
[2025-04-28] MEDS: dexmedeTOMIDine HCL/NS 400 MCG/100 ML PLAST..BAG 9.81 MCG IVCONT (01:50)
[2025-04-28 04:24] LABS: VBG HCO3 40 mmol/L (22-26); VBG O2 % Saturation 100.0 %
[2025-04-28 04:48] LABS: Hemoglobin 7.8 g/dl (14.0-18.0); Mean Corpuscular Volume 100.0 fL (80.0-98.0); NRBC Abs Auto 0.030 X10*3/uL (0.0-0.012); NRBC Pct Auto 0.3 /100WBC (0.0-0.2); PLT CLUMP 1
[2025-04-28 04:49] LABS: Hematocrit 23.3 % (42.0-52.0); Mean Corpuscular HGB Conc 33.5 g/dl (31.0-36.0); Mean Corpuscular Hemoglobin 33.5 pg (27.0-33.0); Red Blood Count 2.33 X10*6/uL (4.60-5.80)
[2025-04-28 04:52] LABS: Albumin Level 2.9 g/dL (3.5-5.0)
[2025-04-28 05:00] LABS: Anion Gap 14 (12-20); Blood Urea Nitrogen 37 mg/dL (9-16); Calcium 8.7 mg/dL (8.4-10.2); Carbon Dioxide 33 mmol/L (22-29); Chloride 93 mmol/L (96-108); Creatinine Clr Calc Pharmacy 55.9; Estimated Glomerular Filt Rate 59; Magnesium 1.9 mg/dL (1.6-2.6); Potassium 2.7 mmol/L (3.3-5.1); Sodium 137 mmol/L (135-145)
[2025-04-28 05:01] LABS: White Blood Count 9.4 X10*3/uL (4.8-10.8)
[2025-04-28 05:02] LABS: Platelet Count 61 X10*3/uL (160-400)
[2025-04-28 05:30] LABS: Band Neutrophils Percent 10 % (3-5); Eosinophils Absolute Manual 0.3 X10*3/uL (0.0-0.4); Eosinophils Percent Manual 3 % (0-4); Lymphocytes Absolute Manual 1.0 X10*3/uL (1.2-4.9); Lymphocytes Percent Manual 11 % (20-40); Monocytes Absolute Manual 0.6 X10*3/uL (0.1-1.2); Monocytes Percent Manual 6 % (2-11); Myelocytes Absolute 0.1 X10*/uL; Myelocytes Percent 1 %; Neutrophils Absolute Manual 7.4 X10*3/uL (2.0-8.3); Neutrophils Percent Manual 69 % (45-73); RBC Morphology NOTED
[2025-04-28 05:31] LABS: Macrocytosis 1+ (5-14) /OIF; Microcytosis 1+ (5-14) /OIF
[2025-04-28 05:32] LABS: Large Platelet PRESENT; Ovalocytes 1+ (5-14) /OIF; Schistocytes 1+ (0-2) /OIF
[2025-04-28] MEDS: Potassium Chloride/H20 10 MEQ/100 ML PIGGYBACK 100 MEQ IV ×5 (05:32→23:50)
[2025-04-28 05:33] LABS: Basophilic Stippling 1+ (0-2) /OIF; Dohle Bodies PRESENT; Hypochromasia 1+ (5-14) /OIF; Polychromasia 1+ (0-2) /OIF; Stomatocytes 1+ (5-14) /OIF; Target Cells 1+ (5-14) /OIF; Tear Drop Cells 1+ (0-2) /OIF; Toxic Granulation PRESENT; Toxic Vacuolation PRESENT
[2025-04-28] MEDS: Thiamine HCL 100 MG in 0.9 % Sodium Chloride 100 ML 202 MG IV (08:41)
[2025-04-28] MEDS: Albumin Human 25 % 50 ML 100 ML IV ×3 (08:42→10:28)
[2025-04-28] MEDS: Chlorhexidine Gluc Oral Rinse 15 ML MOUTHWASH BUCCAL (08:42)
[2025-04-28] MEDS: Furosemide 20 MG/2 ML VIAL IVPUSH ×2 (08:42→18:02)
--- NOTE | 2025-04-28 09:38 | P.PNCC_ITS ---
Subjective Subjective Date of Service: 04/28/25 Interval History: no significant overnight events Critical Care Time (minutes): 60 Physical Exam 2 Vital Signs: Vital Signs: Last Vital Signs Temp 97.9 F 04/28/25 08:00 Pulse 81 04/28/25 09:00 Resp 19 04/28/25 09:00 BP 101/61 04/28/25 09:00 Pulse Ox 92 04/28/25 09:00 O2 Del Method Mechanical Ventil ation 04/28/25 09:00 O2 Flow Rate 35 04/28/25 06:00 FiO2 35 04/28/25 09:11 BMI result Body Mass Index 27.2 Const: Other: intubated, not sedated; opens eyes spontaneously, tracks, follows simple commands General: comfortable, no acute distress, well developed and awake HEENT: Head: Yes normal to inspection, Yes normocephalic and Yes atraumatic Eyes: General: appearance normal, both eyes and all related structures Neck: Neck: Yes normal visual inspection, Yes full ROM, Yes no meningeal signs, Yes trachea midline and Yes supple Chest: Chest palpation & inspection: normal inspection of the chest Resp: Other: some appreciable rhonchi; no appreciable overt rales, wheezing Cardio: Rate: regular rate Rhythm: regular rhythm GI: Inspection: Yes normal to inspection, No Abdominal wall edema and No distended Palpation (GI): Soft to palpation, not firm, nontender, no guarding and not rigid Skin: General skin exam: no rashes or lesions noted Neuro: Other: overall weak; squeezes hands General: tone normal and no meningeal signs Extrem: Other: appreciable 1+ pitting edema to bilateral shins General: Yes normal to inspection, Yes full ROM and Yes capillary refill normal Psych: Appearance: grossly normal Objective Data Labs 04/28/25 04:13 04/28/25 04:13 Labs: Laboratory Results - last 24 hr 04/27/25 04/27/25 04/27/25 11:33 17:45 23:44 WBC RBC Hgb Hct MCV MCH MCHC RDW Plt Count MPV Immature Gran % (Auto) Neut % (Auto) Lymph % (Auto) [place] % (Auto) Eos % (Auto) Baso % (Auto) Lymph # (Auto) [place] # (Auto) Eos # (Auto) Baso # (Auto) Abs Immat Gran (auto) Absolute Neuts (auto) Absolute Nucleated RBC Nucleated RBC % (auto) Neutrophils % (Manual) Band Neutrophils % Lymphocytes % (Manual) Monocytes % (Manual) Eosinophils % (Manual) Myelocytes % Abs Neuts (Manual) Lymphocytes # (Manual) Monocytes # (Manual) Eosinophils # (Manual) Myelocytes # Toxic Granulation Toxic Vacuolation Dohle Bodies Platelet Estimate Large Platelets Plt Morphology Comment RBC Morphology Polychromasia Hypochromasia Basophilic Stippling Microcytosis Macrocytosis Target Cells Tear Drop Cells Ovalocytes Stomatocytes Schistocytes VBG pH VBG pCO2 VBG pO2 VBG HCO3 VBG O2 Saturation VBG Base Excess Sodium Potassium Chloride Carbon Dioxide Anion Gap BUN Creatinine Estim Creat Clear Calc Estimated GFR POC Glucose 229 H 224 H 214 H Random Glucose Calcium Phosphorus Magnesium Albumin 04/28/25 04/28/25 04:13 04:20 WBC 9.4 RBC 2.33 L Hgb 7.8 L Hct 23.3 L MCV 100.0 H MCH 33.5 H MCHC 33.5 RDW 21.2 H Plt Count 61 L MPV 11.8 Immature Gran % (Auto) Cancelled Neut % (Auto) Cancelled Lymph % (Auto) Cancelled [place] % (Auto) Cancelled Eos % (Auto) Cancelled Baso % (Auto) Cancelled Lymph # (Auto) Cancelled [place] # (Auto) Cancelled Eos # (Auto) Cancelled Baso # (Auto) Cancelled Abs Immat Gran (auto) Cancelled Absolute Neuts (auto) Cancelled Absolute Nucleated RBC 0.030 H Nucleated RBC % (auto) 0.3 H Neutrophils % (Manual) 69 Band Neutrophils % 10 H Lymphocytes % (Manual) 11 L Monocytes % (Manual) 6 Eosinophils % (Manual) 3 Myelocytes % 1 Abs Neuts (Manual) 7.4 Lymphocytes # (Manual) 1.0 L Monocytes # (Manual) 0.6 Eosinophils # (Manual) 0.3 Myelocytes # 0.1 Toxic Granulation PRESENT Toxic Vacuolation PRESENT Dohle Bodies PRESENT Platelet Estimate DECREASED Large Platelets PRESENT Plt Morphology Comment NOTED RBC Morphology NOTED Polychromasia 1+ (0-2) Hypochromasia 1+ (5-14) Basophilic Stippling 1+ (0-2) Microcytosis 1+ (5-14) Macrocytosis 1+ (5-14) Target Cells 1+ (5-14) Tear Drop Cells 1+ (0-2) Ovalocytes 1+ (5-14) Stomatocytes 1+ (5-14) Schistocytes 1+ (0-2) VBG pH 7.66 H* VBG pCO2 35 VBG pO2 99 VBG HCO3 40 H VBG O2 Saturation 100.0 VBG Base Excess 19.1 Sodium 137 Potassium 2.7 L* D Chloride 93 L Carbon Dioxide 33 H Anion Gap 14 BUN 37 H Creatinine 1.23 Estim Creat Clear Calc 55.9 Estimated GFR 59 POC Glucose Random Glucose 184 H Calcium 8.7 Phosphorus 3.3 Magnesium 1.9 Albumin 2.9 L Microbiology Microbiology Results: Microbiology 04/21/25 10:38 Blood - Venous Blood Culture - Final No growth after 5 days. 04/21/25 10:34 Blood - Venous Blood Culture - Final No growth after 5 days. 04/16/25 15:05 Blood - Venous Blood Culture - Final No growth after 5 days. 04/16/25 15:00 Blood - Venous Blood Culture - Final Coag negative Staphylococcus Progress Note: A&P Assessment and plan (1) Acute respiratory failure: Status: Acute (2) Aspiration pneumonia: Status: Acute Plan Patient is a 64 Y M w/ alcohol misuse c/b prior alcohol withdrawal seizures presenting to ED on 04/16 s/p recurrent falls, c/f withdrawal seizure, initially?admitted medicine; hospital course c/b upper GI bleed c/b aspiration and acute hypoxic respiratory failure; on 04/21, patient w/ worsening acute hypoxic respiratory?failure necessitating intubation; ICU course c/b upper GI bleed, persistent encephalopathy N: intubated, sedated w/ dexmedetomidine gtt, wean as tolerated; encephalopathy, MRI brain 04/26 grossly unremarkable, improving CV: no acute issues; to closely monitor hemodynamics R: acute hypoxic respiratory failure d/t aspiration pneumonia, intubated 04/21, wean as tolerated; daily SAT/SBT, encephalopathy and weakness, though improving GI: upper GI bleed d/t esophagitis, portal hypertensive gastropathy, stable; NPO, TPN transition to tube feeds as tolerated : acute renal insufficiency, to monitor renal indices/electrolytes H: acute blood loss anemia d/t upper GI bleed, transfuse?as needed; to avoid chemical DVT prophylaxis in setting of upper GI bleed, mechanical devices ID: c/f aspiration pneumonia, empiric zosyn E: to monitor hypo-/hyper-glycemia P: alcohol misuse S: daily updates given to brother/HCP Quality Stroke Does the patient have a stroke diagnosis?: No VTE Prior VTE?: No VTE Risk Level:: Medical - moderate - high VTE Device Contraindication: N/A - Device Ordered VTE Drug Contraindication: Treatment Not Tolerated
[2025-04-28] MEDS: Potassium Phosphate/NS 15 MMOL/250 ML PLAST..BAG 62.5 MMOL IV ×2 (10:28→15:12)
[2025-04-28 10:36] LABS: Venous Blood Gas Refer to POC result
[2025-04-28 12:30] LABS: Glucose, Whole Blood 195 mg/dL (60-115)
--- NOTE | 2025-04-28 12:45 | PC.NURSE ---
Addendum entered by Nicho Knapp RN 04/28/25 13:09: b/l wrist restraints d/c'ed at time of extubation, 1240 Original Note: pt extubated at 1240
[2025-04-28 17:59] LABS: Glucose, Whole Blood 149 mg/dL (60-115)
[2025-04-28] MEDS: Parenteral Nutrition 1,800 ML 75 ML IV (20:49)
[2025-04-28 21:09] LABS: Anion Gap 14 (12-20); Blood Urea Nitrogen 34 mg/dL (9-16); Calcium 8.6 mg/dL (8.4-10.2); Carbon Dioxide 30 mmol/L (22-29); Chloride 97 mmol/L (96-108); Creatinine Clr Calc Pharmacy 58.8; Estimated Glomerular Filt Rate > 60; Magnesium 1.8 mg/dL (1.6-2.6); Potassium 3.4 mmol/L (3.3-5.1); Sodium 138 mmol/L (135-145)
[2025-04-28 23:40] LABS: Glucose, Whole Blood 191 mg/dL (60-115)
[2025-04-29] VITALS (24 sets, daily range): BP systolic 106–148; BP diastolic 53–87; PULSE 92–115; RESP 13–26; TEMP 36.5–37.7; O2SAT 90–96; BMI 26.5
[2025-04-29] MEDS: Potassium Chloride/H20 10 MEQ/100 ML PIGGYBACK 100 MEQ IV ×7 (00:50→23:03)
[2025-04-29 04:46] LABS: MANUAL DIFF FLAG NO
[2025-04-29 04:58] LABS: Hematocrit 24.5 % (42.0-52.0); Hemoglobin 8.1 g/dl (14.0-18.0); Imm Gran Abs Auto 0.04 X10*3/uL (0.00-0.03); Imm Gran Pct Auto 0.4 % (0.0-0.4); Lymphocytes Absolute Auto 1.3 X10*3/uL (1.2-4.9); Mean Corpuscular HGB Conc 33.1 g/dl (31.0-36.0); Mean Corpuscular Hemoglobin 33.8 pg (27.0-33.0); Mean Corpuscular Volume 102.1 fL (80.0-98.0); NRBC Abs Auto 0.020 X10*3/uL (0.0-0.012); NRBC Pct Auto 0.2 /100WBC (0.0-0.2); Red Blood Count 2.40 X10*6/uL (4.60-5.80); White Blood Count 9.7 X10*3/uL (4.8-10.8)
[2025-04-29 04:59] LABS: Albumin Level 3.2 g/dL (3.5-5.0); Platelet Count 63 X10*3/uL (160-400)
[2025-04-29 05:06] LABS: Anion Gap 15 (12-20); Blood Urea Nitrogen 32 mg/dL (9-16); Calcium 8.7 mg/dL (8.4-10.2); Carbon Dioxide 30 mmol/L (22-29); Chloride 97 mmol/L (96-108); Creatinine Clr Calc Pharmacy 68.1; Estimated Glomerular Filt Rate > 60; Magnesium 2.0 mg/dL (1.6-2.6); Potassium 3.4 mmol/L (3.3-5.1); Sodium 139 mmol/L (135-145)
[2025-04-29] MEDS: Albumin Human 25 % 50 ML 100 ML IV (07:15)
[2025-04-29] MEDS: Furosemide 20 MG/2 ML VIAL IVPUSH ×2 (07:15→18:03)
[2025-04-29] MEDS: Thiamine HCL 100 MG in 0.9 % Sodium Chloride 100 ML 202 MG IV (07:16)
--- NOTE | 2025-04-29 08:24 | P.PNCC_ITS ---
Subjective Subjective Date of Service: 04/29/25 Interval History: extubated 04/28 AM; some confusion, appreciable secretions, though maintaining airway Critical Care Time (minutes): 0 Physical Exam 2 Vital Signs: Vital Signs: Last Vital Signs Temp 98.5 F 04/29/25 05:00 Pulse 102 H 04/29/25 07:00 Resp 22 H 04/29/25 07:00 BP 116/69 04/29/25 07:00 Pulse Ox 95 04/29/25 07:00 O2 Del Method Nasal Cannula 04/29/25 07:00 O2 Flow Rate 4 04/29/25 07:00 FiO2 35 04/28/25 12:00 BMI result Body Mass Index 26.5 Const: General: cooperative, healthy appearing, comfortable, no acute distress, well developed, alert, awake and Physically active O rientation/consciousness: oriented to person and oriented to place HEENT: Head: Yes normal to inspection, Yes normocephalic and Yes atraumatic Eyes: General: appearance normal, both eyes and all related structures Neck: Neck: Yes normal visual inspection, Yes full ROM, Yes no meningeal signs, Yes trachea midline and Yes supple Chest: Chest palpation & inspection: normal inspection of the chest Resp: Other: appreciable rhonchi and wheezing; no appreciable overt rales Effort & Inspection: normal respiratory effort GI: Inspection: Yes normal to inspection, No Abdominal wall edema and No distended Palpation (GI): Soft to palpation, not firm, nontender, no guarding and not rigid Skin: General skin exam: no rashes or lesions noted Neuro: General: oriented to person, oriented to place, tone normal, moves all extremities, no meningeal signs and no focal motor deficits Extrem: Other: appreciable trace pitting edema to bilateral shins General: Yes normal to inspection, Yes full ROM and Yes capillary refill normal Psych: Appearance: grossly normal Objective Data Labs 04/29/25 04:08 04/29/25 04:08 Labs: Laboratory Results - last 24 hr 04/28/25 04/28/25 04/28/25 12:25 17:56 20:34 WBC RBC Hgb Hct MCV MCH MCHC RDW Plt Count MPV Immature Gran % (Auto) Neut % (Auto) Lymph % (Auto) [place] % (Auto) Eos % (Auto) Baso % (Auto) Lymph # (Auto) [place] # (Auto) Eos # (Auto) Baso # (Auto) Abs Immat Gran (auto) Absolute Neuts (auto) Absolute Nucleated RBC Nucleated RBC % (auto) Sodium 138 Potassium 3.4 D Chloride 97 Carbon Dioxide 30 H Anion Gap 14 BUN 34 H Creatinine 1.17 Estim Creat Clear Calc 58.8 Estimated GFR > 60 POC Glucose 195 H 149 H Random Glucose 172 H Calcium 8.6 Phosphorus 4.1 Magnesium 1.8 Albumin 04/28/25 04/29/25 23:35 04:08 WBC 9.7 RBC 2.40 L Hgb 8.1 L Hct 24.5 L MCV 102.1 H MCH 33.8 H MCHC 33.1 RDW 21.6 H Plt Count 63 L MPV 12.2 Immature Gran % (Auto) 0.4 Neut % (Auto) 73.7 H Lymph % (Auto) 13.0 L [place] % (Auto) 10.2 Eos % (Auto) 2.2 Baso % (Auto) 0.5 Lymph # (Auto) 1.3 [place] # (Auto) 1.0 Eos # (Auto) 0.2 Baso # (Auto) 0.1 Abs Immat Gran (auto) 0.04 H Absolute Neuts (auto) 7.1 Absolute Nucleated RBC 0.020 H Nucleated RBC % (auto) 0.2 Sodium 139 Potassium 3.4 Chloride 97 Carbon Dioxide 30 H Anion Gap 15 BUN 32 H Creatinine 1.01 Estim Creat Clear Calc 68.1 Estimated GFR > 60 POC Glucose 191 H Random Glucose 190 H Calcium 8.7 Phosphorus 3.4 Magnesium 2.0 Albumin 3.2 L Microbiology Microbiology Results: Microbiology 04/21/25 10:38 Blood - Venous Blood Culture - Final No growth after 5 days. 04/21/25 10:34 Blood - Venous Blood Culture - Final No growth after 5 days. 04/16/25 15:05 Blood - Venous Blood Culture - Final No growth after 5 days. 04/16/25 15:00 Blood - Venous Blood Culture - Final Coag negative Staphylococcus Progress Note: A&P Assessment and plan (1) Acute respiratory failure: Status: Acute (2) Aspiration pneumonia: Status: Acute Plan Patient is a 64 Y M w/ alcohol misuse c/b prior alcohol withdrawal seizures presenting to ED on 04/16 s/p recurrent falls, c/f withdrawal seizure, initially?admitted medicine; hospital course c/b upper GI bleed c/b aspiration and acute hypoxic respiratory failure; on 04/21, patient w/ worsening acute hypoxic respiratory?failure necessitating intubation; ICU course c/b upper GI bleed, persistent encephalopathy N: encephalopathy, MRI brain 04/26 grossly unremarkable, improving CV: no acute issues; to closely monitor hemodynamics R: acute hypoxic respiratory failure d/t aspiration pneumonia, intubated 04/21, extubated 04/28; persistent secretions, to closely monitor airway GI: upper GI bleed d/t esophagitis, portal hypertensive gastropathy, stable; NPO, TPN, speech/swallow evaluation 04/29 : acute renal insufficiency, improving, to monitor renal indices/electrolytes H: acute blood loss anemia d/t upper GI bleed, transfuse?as needed; to avoid chemical DVT prophylaxis in setting of upper GI bleed, mechanical devices ID: c/f aspiration pneumonia, empiric zosyn E: to monitor hypo-/hyper-glycemia P: alcohol misuse S: daily updates given to brother/HCP Quality Stroke Does the patient have a stroke diagnosis?: No VTE Prior VTE?: No VTE Risk Level:: Medical - moderate - high VTE Device Contraindication: N/A - Device Ordered VTE Drug Contraindication: Treatment Not Tolerated
[2025-04-29 12:06] LABS: Glucose, Whole Blood 221 mg/dL (60-115)
--- NOTE | 2025-04-29 12:06 | MHC.SL.SWA ---
Speech Pathologist Impression: Moderate to severe pharyngeoesophageal dysphagia Risk of Aspiration Due to: Hx of recurrent aspiration Recent extubation Deconditioning GI pathology Dysphasia Diet Status: Liquid Consistency and Strategies for Safe Swallow: Liquid Intake Recommendation: NPO Liquid Intake Strategies: Ice chips permitted Solid Food Consistency: Dietary Recommendations: NPO LITHOGRAPHIC PROOFER to re-assess daily Oral Medication Intake: NPO Please contact the pharmacy regarding appropriate crushable or liquid drug formulations that are available whenever modified delivery is recommended. Compensatory Strategies and Precautions to be Taken for Safe Swallow: Sitting Upright (90 deg) Supervision While Eating and Drinking for Safe Swallow: PO with LITHOGRAPHIC PROOFER Foods to Avoid: Swallowing Recommended Treatments: Compens. Strategy Educat. Recommendation for Speech: Inpatient Speech Therapy Comment: 04/29: Pt has hx of dysphagia with recurrent aspiration PNA. Pt admitted 04/16/25 s/t falls, +upper GI bleed. Pt then seen by LITHOGRAPHIC PROOFER 04/17/25, started on NDD1 with NTL diet, downgraded to HTL a few days later. Pt had choking episode on NTL. Pt intubated 04/21, extubated 04/28. Pt alert, able to follow simple dues during re-evaluation today. Pt voicing weak, wet upon initiation. Pt able to clear throat with force/reswallow, with minimal improvement. Pharyngeal swallow moderately delayed, effortful. Pt persistently requested water but was agreeable to controlled trials. Pt did show impulsivity with sips of water and NTL by cup. Trials discontinued for each consistency as overt s/s of both ashlie and post-swallow aspiration evident with thins, NTL, HTL and puree. Tolerance of ice chips adequate, but pt did not show understanding of reason for NPO recc during education. LITHOGRAPHIC PROOFER to re-evaluate tomorrow. Prognosis for safe resumption of PO guarded given complexity of pt dysphagia. Frequency/Duration: Daily M-F Date Range for Service Req: Timeline to reassess: Sequencing Machine Operator Clinican/Clinical Fellow: No Supervisory Statement: I have reviewed and agree with the student/clinical fellow's documentation: N/A Speech Language Pathologist: Maya Todd M.S., CCC-LITHOGRAPHIC PROOFER
[2025-04-29 18:02] LABS: Glucose, Whole Blood 176 mg/dL (60-115)
[2025-04-29] MEDS: Parenteral Nutrition 1,800 ML 75 ML IV (19:41)
[2025-04-29 21:21] LABS: Anion Gap 13 (12-20); Blood Urea Nitrogen 29 mg/dL (9-16); Calcium 9.0 mg/dL (8.4-10.2); Carbon Dioxide 30 mmol/L (22-29); Chloride 99 mmol/L (96-108); Creatinine Clr Calc Pharmacy 70.9; Estimated Glomerular Filt Rate > 60; Potassium 3.4 mmol/L (3.3-5.1); Sodium 139 mmol/L (135-145)
[2025-04-29] MEDS: 0.9 % Sodium Chloride Flush 3 ML SYRINGE IVFLUSH (23:52)
[2025-04-30] VITALS (17 sets, daily range): BP systolic 104–155; BP diastolic 56–87; PULSE 97–111; RESP 14–25; TEMP 36.3–37.3; O2SAT 90–99; BMI 26.5
[2025-04-30] LABS: Glucose, Whole Blood 179 mg/dL (60-115)
[2025-04-30] MEDS: Potassium Chloride/H20 10 MEQ/100 ML PIGGYBACK 100 MEQ IV ×2 (00:06→01:09)
--- NOTE | 2025-04-30 01:26 | PC.NURSE ---
Assumed care of patient at 1900. Upon assessment patient A/O x2, vague with date. LS rhonchorous, O2 4L NC . O2 sats 88-92%. VSS / SR-ST on telemetry. Potassium 3.4, replaced overnight/ 40 meq IV . Patient incontinent of urine. Janet area skin macerated. Triad/barrier cream applied. Scattered bruising noted. Repositioned Q2H. Patient remains NPO , failed swallow eval/ reevaluation 04/30. Safety measures in place, call nielson within reach. Plan of care ongoing.
[2025-04-30 05:10] LABS: MANUAL DIFF FLAG NO
[2025-04-30 05:15] LABS: Hematocrit 26.1 % (42.0-52.0); Hemoglobin 8.6 g/dl (14.0-18.0); Imm Gran Abs Auto 0.08 X10*3/uL (0.00-0.03); Imm Gran Pct Auto 0.9 % (0.0-0.4); Lymphocytes Absolute Auto 1.2 X10*3/uL (1.2-4.9); Mean Corpuscular HGB Conc 33.0 g/dl (31.0-36.0); Mean Corpuscular Hemoglobin 33.5 pg (27.0-33.0); Mean Corpuscular Volume 101.6 fL (80.0-98.0); NRBC Abs Auto 0.020 X10*3/uL (0.0-0.012); NRBC Pct Auto 0.2 /100WBC (0.0-0.2); Platelet Count 74 X10*3/uL (160-400); Red Blood Count 2.57 X10*6/uL (4.60-5.80); White Blood Count 9.3 X10*3/uL (4.8-10.8)
[2025-04-30 05:30] LABS: Albumin Level 3.3 g/dL (3.5-5.0); Anion Gap 14 (12-20); Blood Urea Nitrogen 29 mg/dL (9-16); Calcium 8.9 mg/dL (8.4-10.2); Carbon Dioxide 29 mmol/L (22-29); Chloride 98 mmol/L (96-108); Creatinine Clr Calc Pharmacy 75.6; Estimated Glomerular Filt Rate > 60; Magnesium 2.0 mg/dL (1.6-2.6); Potassium 3.8 mmol/L (3.3-5.1); Sodium 137 mmol/L (135-145)
[2025-04-30] MEDS: Potassium Phosphate/NS 15 MMOL/250 ML PLAST..BAG 62.5 MMOL IV (07:58)
[2025-04-30] MEDS: 0.9 % Sodium Chloride Flush 3 ML SYRINGE IVFLUSH ×3 (08:00→20:27)
--- NOTE | 2025-04-30 09:30 | PC.NURSE ---
Patient incontinent of multiple loose stool, maceration to per area with open bleeding wounds, patient c/o pain to rectal area while being cleaned, flexi seal placed to protect skin, per care performed, barrier cream applied, patient tolerated the rectal tube placement well. Patient also incontinent of urine, unable to keep external catheter in place, patient educated on the use of urinal. Multiple attempts to get out of bed, 1:1 sitter added for safety. Patient NPO, keeps asking for water, ice chips provided, pending speech/swallow evaluation, patient aware.
[2025-04-30] MEDS: Furosemide 20 MG/2 ML VIAL IVPUSH ×2 (10:01→17:37)
--- NOTE | 2025-04-30 10:12 | PM.CCPN ---
Subjective Subjective Date of Service: 04/30/25 Interval History: 64-year-old gentleman with underlying history of alcohol abuse with prior alcohol withdrawal seizures admitted on 04/16/2025 with mechanical falls and withdrawal seizures with hospital course further complicated by upper GI bleed status post EGD noted gastritis and esophageal webs status post dilation, delirium tremens with dysphagia with aspiration and hypoxic respiratory failure requiring intubation and ventilatory support on 04/21/2025, extubated on 04/28/2025. No events overnight. Critical Care Time (minutes): 0 Physical Exam Vital Signs: Vital Signs: Last Vital Signs Temp 98.8 F 04/30/25 08:00 Pulse 109 H 04/30/25 09:00 Resp 19 04/30/25 09:00 BP 132/76 04/30/25 09:00 Pulse Ox 94 04/30/25 09:00 O2 Del Method Nasal Cannula 04/30/25 09:00 O2 Flow Rate 6 04/30/25 09:00 FiO2 35 04/28/25 12:00 BMI result Body Mass Index 26.5 Const: General: no acute distress, alert, awake and confusion Orientation/consciousness: confusion Eyes: Sclerae: sclerae normal EOM: EOMs intact bilaterally Neck: Neck: Yes no lymphadenopathy, Yes trachea midline and Yes supple Resp: Effort & Inspection: normal respiratory effort and no respiratory distress Auscultation: clear to auscultation bilaterally Cardio: Rate: tachycardic Rhythm: regular rhythm Heart sounds: no gallops, no murmurs and no rubs GI: Palpation (GI): Soft to palpation and Other GI palpation findings present ( Nontender) Auscultation: normal bowel sounds Neuro: General: confusion Extrem: General: Yes no pedal edema, No clubbing and No cyanosis Objective Data Labs 04/30/25 04:40 04/30/25 04:40 Labs: Laboratory Results - last 24 hr 04/29/25 04/29/25 04/29/25 12:03 17:59 20:49 WBC RBC Hgb Hct MCV MCH MCHC RDW Plt Count MPV Immature Gran % (Auto) Neut % (Auto) Lymph % (Auto) [place] % (Auto) Eos % (Auto) Baso % (Auto) Lymph # (Auto) [place] # (Auto) Eos # (Auto) Baso # (Auto) Abs Immat Gran (auto) Absolute Neuts (auto) Absolute Nucleated RBC Nucleated RBC % (auto) Sodium 139 Potassium 3.4 Chloride 99 Carbon Dioxide 30 H Anion Gap 13 BUN 29 H Creatinine 0.97 Estim Creat Clear Calc 70.9 Estimated GFR > 60 POC Glucose 221 H 176 H Random Glucose 174 H Calcium 9.0 Phosphorus Magnesium Albumin 04/29/25 04/30/25 23:56 04:40 WBC 9.3 RBC 2.57 L Hgb 8.6 L Hct 26.1 L MCV 101.6 H MCH 33.5 H MCHC 33.0 RDW 21.5 H Plt Count 74 L MPV 10.8 Immature Gran % (Auto) 0.9 H Neut % (Auto) 71.2 Lymph % (Auto) 12.9 L [place] % (Auto) 11.6 H Eos % (Auto) 2.9 Baso % (Auto) 0.5 Lymph # (Auto) 1.2 [place] # (Auto) 1.1 Eos # (Auto) 0.3 Baso # (Auto) 0.1 Abs Immat Gran (auto) 0.08 H Absolute Neuts (auto) 6.6 Absolute Nucleated RBC 0.020 H Nucleated RBC % (auto) 0.2 Sodium 137 Potassium 3.8 Chloride 98 Carbon Dioxide 29 Anion Gap 14 BUN 29 H Creatinine 0.91 Estim Creat Clear Calc 75.6 Estimated GFR > 60 POC Glucose 179 H Random Glucose 172 H Calcium 8.9 Phosphorus 2.5 L Magnesium 2.0 Albumin 3.3 L Microbiology Microbiology Results: Microbiology 04/21/25 10:38 Blood - Venous Blood Culture - Final No growth after 5 days. 04/21/25 10:34 Blood - Venous Blood Culture - Final No growth after 5 days. 04/16/25 15:05 Blood - Venous Blood Culture - Final No growth after 5 days. 04/16/25 15:00 Blood - Venous Blood Culture - Final Coag negative Staphylococcus Progress Note: A&P Assessment and plan (1) Alcohol withdrawal: Status: Acute (2) Acute respiratory failure with hypoxia: Status: Acute (3) Aspiration pneumonia: Status: Acute (4) Dysphagia: Status: Acute (5) Thrombocytopenia: Status: Acute Plan Assessment: 64-year-old gentleman admitted with alcohol withdrawal further complicated upper GI bleed in dysphagia with aspiration requiring ventilatory support, extubated 04/28/2025. Plan: Neuro: Toxic encephalopathy secondary to alcohol withdrawal, improving. Cardiac: No acute issues. Pulmonary: Acute hypoxic respiratory failure secondary to aspiration with dysphagia requiring intubation, extubated 04/28/2025. Renal: No acute issues. Endo: No acute issues. GI: Upper GI bleed status post EGD on 04/19 with portal gastropathy and also esophageal web status post dilation. ID: Completed antibiotic course for aspiration pneumonia. Heme/Onc: Chronic thrombocytopenia, likely alcohol dependence related. Psych: No acute issues. Miscellaneous: No acute issues. Prophylaxis: Heparin Diet: NPO, pending swallow evaluation Quality Stroke Does the patient have a stroke diagnosis?: No VTE Prior VTE?: No VTE Risk Level:: Medical - moderate - high VTE Device Contraindication: N/A - Device Ordered VTE Drug Contraindication: Treatment Not Tolerated
[2025-04-30] MEDS: Thiamine HCL 100 MG in 0.9 % Sodium Chloride 100 ML 202 MG IV (10:39)
--- NOTE | 2025-04-30 10:46 | MHC.CLN ---
F/U PT WAS EXTUBATED DISCUSSED AT ROUNDS WITH MD-PLAN TO TRANSFER TO MEDICAL FLOOR TODAY PT REMAINS NPO PENDING SWALLOW EVAL FAILED SWALLOW WITH CT TECHNOLOGIST OVER [place] REVIEWED LABS DISCUSSED WITH PHARMACY RECOMMEND PPN AT 80ML PER HOUR WITH 97G LIPIDS TO PROVIDE 1949 KCALS (25KCALS/KG), 82G PROTEIN (1.07G/KG), 192G DEXTROSE REPLETE LYTES NEEDED FOLLOWING FOR DIET ADVANCEMENT
[2025-04-30 12:28] LABS: Glucose, Whole Blood 185 mg/dL (60-115)
--- NOTE | 2025-04-30 12:44 | MHC.CM.PN ---
CM met with Patient at bedside to discuss PT's recommendation for STR. Patient has a Sitter and he did not appear to understand CM's inquiries.
--- NOTE | 2025-04-30 16:20 | MHC.SL.SWA ---
Speech Pathologist Impression: Mild oral and mild to moderate pharyngeal dysphagia, hx of esophageal involvement Risk of Aspiration Due to: Recent extubation Hx of aspiration PNA Poor self monitoring with intake Hx of GI involvement Dysphasia Diet Status: NDD1 with NTL, aspiration precautions, 1:1 assist, cueing to slow pace, use of Yankauer to clear mucous if needed, meds crushed in puree Liquid Consistency and Strategies for Safe Swallow: Liquid Intake Recommendation: [place] Thick Liquid Intake Strategies: Small Sips No Straws Double Swallow Solid Food Consistency: Dietary Recommendations: Pureed (NDD1) Additional Modifications to Solid Foods: Recommend UPGRADE diet to PUREE (NDD1) with NECTAR THICK liquids, pills crushed with puree. Patient can feed himself but is impulsive attempted multiple times to chug liquids. He will need direct supervision with oral intake. SERVICE DESK LEAD will continue to follow to monitor tolerance and re-assess as needed. Oral Medication Intake: Crushed with Puree Please contact the pharmacy regarding appropriate crushable or liquid drug formulations that are available whenever modified delivery is recommended. Compensatory Strategies and Precautions to be Taken for Safe Swallow: Sitting Upright (90 deg) Small Bites and Sips Alternate Liquids/Solids Rate of Ingestion Change Supervision While Eating and Drinking for Safe Swallow: Direct Supervision (1:1) Foods to Avoid: Swallowing Recommended Treatments: Compens. Strategy Educat. Recommendation for Speech: Inpatient Speech Therapy Comment: 04/30: Pt seen for clinical bedside swallow re-evaluation. Pt alert, requesting liquids. Sitter at bedside. Pt agreed to elevate HOB to 70degrees, endorsing back pain. Pt remains impulsive, following a few cues to slow pace when taking consecutive sips of thins with ice, though he did not maintain slow pacing with cues and coughed after trials of thins. Pt tolerated tsps of applesauce, consecutive sips of NTL and tsps of pudding, cough occurred only 3x intermittently, considered secondary to weakness. Pt able to clear mucous/secretions with forceful throat clear and use of Yankauer. Pt agreed with recommendation to resume PO on modified diet of purees and NTL, though pt did not show understanding of risk for recurrent aspiration. Pt has 1;1 supervision at all times, and it is anticipated he will be able to tolerate more upright positioning as he is improving. Recc NDD1 with NTL, aspiration precautions, 1:1 feeding, cues to slow pace, meds crushed in puree, implement use of Yankauer if needed. MD and RN texted via secure communication, SERVICE DESK LEAD following. Frequency/Duration: Daily M-F Date Range for Service Req: Timeline to reassess: Veneer Puller Clinican/Clinical Fellow: No Supervisory Statement: I have reviewed and agree with the student/clinical fellow's documentation: N/A Speech Language Pathologist: Maya Todd M.S., CCC-SERVICE DESK LEAD
[2025-04-30 17:30] LABS: Glucose, Whole Blood 194 mg/dL (60-115)
[2025-04-30 20:12] LABS: Glucose, Whole Blood 194 mg/dL (60-115)
[2025-04-30] MEDS: Parenteral Nutrition 1,920 ML 80 ML IV (20:27)
[2025-04-30 23:46] LABS: Glucose, Whole Blood 205 mg/dL (60-115)
[2025-05-01 03:08] VITALS: BP 125/64; PULSE 116; RESP 18; TEMP 36.6; O2SAT 92
[2025-05-01 05:54] LABS: Glucose, Whole Blood 198 mg/dL (60-115)
[2025-05-01 05:59] VITALS: BMI 26.6
[2025-05-01 07:07] LABS: MANUAL DIFF FLAG NO
[2025-05-01 07:20] LABS: Hematocrit 26.2 % (42.0-52.0); Hemoglobin 8.6 g/dl (14.0-18.0); Imm Gran Abs Auto 0.08 X10*3/uL (0.00-0.03); Imm Gran Pct Auto 0.9 % (0.0-0.4); Lymphocytes Absolute Auto 1.3 X10*3/uL (1.2-4.9); Mean Corpuscular HGB Conc 32.8 g/dl (31.0-36.0); Mean Corpuscular Hemoglobin 33.5 pg (27.0-33.0); Mean Corpuscular Volume 101.9 fL (80.0-98.0); NRBC Abs Auto 0.020 X10*3/uL (0.0-0.012); NRBC Pct Auto 0.2 /100WBC (0.0-0.2); Platelet Count 86 X10*3/uL (160-400); Red Blood Count 2.57 X10*6/uL (4.60-5.80); White Blood Count 8.5 X10*3/uL (4.8-10.8)
[2025-05-01 07:31] LABS: Albumin Level 3.1 g/dL (3.5-5.0); Anion Gap 15 (12-20); Blood Urea Nitrogen 26 mg/dL (9-16); Calcium 9.0 mg/dL (8.4-10.2); Carbon Dioxide 26 mmol/L (22-29); Chloride 100 mmol/L (96-108); Creatinine Clr Calc Pharmacy 83.9; Estimated Glomerular Filt Rate > 60; Magnesium 1.9 mg/dL (1.6-2.6); Potassium 3.9 mmol/L (3.3-5.1); Sodium 137 mmol/L (135-145)
[2025-05-01 07:33] LABS: Glucose, Whole Blood 225 mg/dL (60-115)
[2025-05-01 07:58] VITALS: BP 118/69; PULSE 127; RESP 18; TEMP 37.2; O2SAT 93
[2025-05-01] MEDS: 0.9 % Sodium Chloride Flush 3 ML SYRINGE IVFLUSH ×3 (09:23→20:23)
[2025-05-01] MEDS: Furosemide 20 MG/2 ML VIAL IVPUSH ×2 (09:23→17:47)
[2025-05-01] MEDS: Thiamine HCL 100 MG in 0.9 % Sodium Chloride 100 ML 202 MG IV (09:23)
--- NOTE | 2025-05-01 10:48 | HO.PM.IMPN ---
Subjective Subjective Date of Service: 05/01/25 Interval History: f/u on post icu care for acute resp failure, gib/anemia, aspiration, delirium, reqquired intubation, confused, ongoing diarrhea with rectal tube, tachcyardia this morning and vomitted, KUB, CT requested Physical Exam Vital Signs: Vital Signs: Last Vital Signs Temp 99.0 F 05/01/25 07:58 Pulse 127 H 05/01/25 07:58 Resp 18 05/01/25 07:58 BP 118/69 05/01/25 07:58 Pulse Ox 93 05/01/25 07:58 O2 Del Method Nasal Cannula 05/01/25 07:58 O2 Flow Rate 2 05/01/25 07:58 FiO2 35 04/28/25 12:00 BMI result Body Mass Index 26.6 Const: Other: General: Alert but confused, no acute distress Resp: CTA bilateral CVS: S1,S2,RRR GI: +BS, NT, mild distention, Skin: No rash Neuro: motor grossly intact Psych: appropriate affect Objective Data Active Medications Albuterol/Ipratropium (Albuterol/Iprat 2.5/0.5mg 3 Ml Ampul.Neb) 3 ml INHALE RQ4H WHILE AWAKE PRN PRN Reason: Wheezing Dextrose (Dextrose 50 % 25 Gm/50 Ml Syringe) 25 gm IVPUSH Q15M PRN; Protocol PRN Reason: per Hypoglycemia Standing Ord. Furosemide (Furosemide 20 Mg/2 Ml Vial) 20 mg IVPUSH BID@0900,1800 DAMIÁN; Protocol Last Admin: 05/01/25 09:23 Dose: 20 mg Documented By: AYAAN Glucose (Glucose Gel 15 Gm Gel..Gram.) 15 gm PO Q15M PRN; Protocol PRN Reason: per Hypoglycemia Standing Ord. Thiamine HCl 100 mg/ Sodium (Chloride) 101 mls @ 202 mls/hr IV DAILY DAMIÁN Last Infusion: 05/01/25 10:25 Dose: Infused Documented By: AYAAN Folic Acid 1 mg/ Sodium (Chloride) 50.2 mls @ 100.4 mls/hr IV DAILY DAMIÁN Last Infusion: 05/01/25 10:25 Dose: Infused Documented By: AYAAN Nutrition (Parenteral) (Parenteral Nutrition) 1,920 mls @ 80 mls/hr IV .Q24H DAMIÁN; Protocol Stop: 05/01/25 20:59 Last Admin: 04/30/25 20:27 Dose: 80 mls/hr Documented By: CELSO Nutrition (Parenteral) (Parenteral Nutrition) 1,920 mls @ 80 mls/hr IV .Q24H [facility]; Protocol Stop: 05/02/25 20:59 Insulin Human Lispro (Insulin Lispro 100 Unit/Ml 3 Ml Vial) 0 unit SUBCUT Q6H [facility]; Protocol Last Admin: 05/01/25 05:55 Dose: 2 unit Documented By: CELSO Ondansetron HCl (Ondansetron Hcl 4 Mg/2 Ml Vial) 4 mg IVPUSH Q8H PRN PRN Reason: Nausea and Vomiting Pharmacy Consult (Consult Rx Parenteral Nutrition Ordering) 1 each MISCELLANE DAILY PRN PRN Reason: Consult order Sodium Chloride (0.9 % Sodium Chloride Flush 3 Ml Syringe) 3 ml IVFLUSH QSHIFT [facility] Last Admin: 05/01/25 09:23 Dose: 3 ml Documented By: AYAAN Labs 05/01/25 06:18 05/01/25 06:18 Labs: Laboratory Results - last 24 hr 04/30/25 04/30/25 04/30/25 12:24 17:25 20:09 MCV MCH MCHC RDW Plt Count MPV Immature Gran % (Auto) Neut % (Auto) Lymph % (Auto) [place] % (Auto) Eos % (Auto) Baso % (Auto) Lymph # (Auto) [place] # (Auto) Eos # (Auto) Baso # (Auto) Abs Immat Gran (auto) Absolute Neuts (auto) Absolute Nucleated RBC Nucleated RBC % (auto) Anion Gap Estim Creat Clear Calc Estimated GFR POC Glucose 185 H 194 H 194 H Random Glucose Calcium Phosphorus Magnesium Albumin 04/30/25 05/01/25 05/01/25 23:40 05:50 06:18 MCV 101.9 H MCH 33.5 H MCHC 32.8 RDW 21.9 H Plt Count 86 L MPV 12.8 H Immature Gran % (Auto) 0.9 H Neut % (Auto) 69.4 Lymph % (Auto) 15.7 L [place] % (Auto) 10.6 Eos % (Auto) 2.8 Baso % (Auto) 0.6 Lymph # (Auto) 1.3 [place] # (Auto) 0.9 Eos # (Auto) 0.2 Baso # (Auto) 0.1 Abs Immat Gran (auto) 0.08 H Absolute Neuts (auto) 5.9 Absolute Nucleated RBC 0.020 H Nucleated RBC % (auto) 0.2 Anion Gap 15 Estim Creat Clear Calc 83.9 Estimated GFR > 60 POC Glucose 205 H 198 H Random Glucose 212 H Calcium 9.0 Phosphorus 3.3 Magnesium 1.9 Albumin 3.1 L 05/01/25 07:29 MCV MCH MCHC RDW Plt Count MPV Immature Gran % (Auto) Neut % (Auto) Lymph % (Auto) [place] % (Auto) Eos % (Auto) Baso % (Auto) Lymph # (Auto) [place] # (Auto) Eos # (Auto) Baso # (Auto) Abs Immat Gran (auto) Absolute Neuts (auto) Absolute Nucleated RBC Nucleated RBC % (auto) Anion Gap Estim Creat Clear Calc Estimated GFR POC Glucose 225 H Random Glucose Calcium Phosphorus Magnesium Albumin Assessment and Plan (1) Alcohol withdrawal: Status: Acute (2) End stage liver disease: Status: Acute (3) Upper GI bleed: Status: Acute (4) Acute and chronic respiratory failure with hypoxia: Status: Acute (5) Pneumonia: Status: Acute Plan 64-year-old gentleman with underlying history of alcohol abuse with prior alcohol withdrawal seizures admitted on 04/16/2025 with mechanical falls and withdrawal seizures with hospital course further complicated by upper GI bleed status post EGD noted gastritis and esophageal webs status post dilation, delirium tremens with dysphagia with aspiration and hypoxic respiratory failure requiring intubation and ventilatory support on 04/21/2025, extubated on 04/28/2025. Presently with rectal tube, now tachycardia, and vomitted. Neuro: Toxic encephalopathy secondary to alcohol withdrawal, and likely icu delirium. Check ammonia level Cardiac: tachycardia, likely from underlying illness and has been chronic Pulmonary: Acute hypoxic respiratory failure secondary to aspiration with dysphagia requiring intubation, extubated 04/28/2025. No longer on Abx, O2 93 on 2 liters, nl wbc Renal: No acute issues. Endo: No acute issues. GI: Upper GI bleed status post EGD on 04/19 with portal gastropathy and also esophageal web status post dilation. Now with nausea dn vomiting, mild distention on exam, rectal tub in placed. KUB and CT to rule obstruction. ID: Completed antibiotic course for aspiration pneumonia. Heme/Onc: Chronic thrombocytopenia, likely alcohol dependence related. Psych: No acute issues. Miscellaneous: No acute issues. Prophylaxis: no heparin given GIB, but will rechallenge and closely monitor Diet: NPO, pending swallow evaluation, continue TPN for now Total time managing care of this patient today: 80 minutes. Quality Stroke Does the patient have a stroke diagnosis?: No VTE Prior VTE?: No VTE Risk Level:: Medical - moderate - high VTE Device Contraindication: N/A - Device Ordered VTE Drug Contraindication: Treatment Not Tolerated
--- NOTE | 2025-05-01 11:46 | MHC.SL.SWA ---
Speech Pathologist Impression: Mild-Moderate oropharyngeal dysphagia Risk of Aspiration Due to: current conditions, dentition status, Dysphasia Diet Status: Recommend CONTINUE with NDD1, NECTAR THICK Liquids Liquid Consistency and Strategies for Safe Swallow: Liquid Intake Recommendation: [place] Thick Liquid Intake Strategies: Small Sips No Straws Double Swallow Solid Food Consistency: Dietary Recommendations: Pureed (NDD1) Additional Modifications to Solid Foods: Oral Medication Intake: Crushed with Puree Please contact the pharmacy regarding appropriate crushable or liquid drug formulations that are available whenever modified delivery is recommended. Compensatory Strategies and Precautions to be Taken for Safe Swallow: Sitting Upright (90 deg) Small Bites and Sips Alternate Liquids/Solids Rate of Ingestion Change Supervision While Eating and Drinking for Safe Swallow: Direct Supervision (1:1) Foods to Avoid: Swallowing Recommended Treatments: Compens. Strategy Educat. Recommendation for Speech: Inpatient Speech Therapy Comment: Patient seen for dysphagia tx/re-eval this morning for possible upgrade in consistencies. Upon arrival, patient observed in bed with sitter at bedside. Per sitter, patient only consuming NTLs and no solids for breakfast d/t reported nausea. ASSISTANT FILM EDITOR elevated HOB prior to PO intake. Patient with coughing prior to PO intake and emesis. RN alerted of emesis and gave okay to continue with trial of thin liquids. Throughout session, patient with audible congested breathing. RN, sitter and ASSISTANT FILM EDITOR encouraging patient to cough and utilize [place] to remove any secretions brought up. Patient cough perceived as congested and nonproductive; difficulties bringing any secretions up. RN attempting to assist with suctioning; gagging noted as well as mild emesis. Patient also given few bites of applesauce- only accepting few before politely refusing and reporting nausea. Given audible congestion, delayed coughing after trials of thin liquids and nausea/emesis, patient not appropriate for upgrade at this time. Recommend CONTINUE with NDD1, NECTAR THICK liquids with 1:1 feeding assist (pre-loading utensils for patient d/t impulsivity) utilizing small sips/bites and slow feeding pace. Frequency/Duration: Daily M-F Date Range for Service Req: Timeline to reassess: [place] Clinican/Clinical Fellow: No Supervisory Statement: I have reviewed and agree with the student/clinical fellow's documentation: N/A Speech Language Pathologist: Sultana Givens M.A., CCC-ASSISTANT FILM EDITOR
[2025-05-01 12:00] VITALS: BP 128/74; PULSE 114; RESP 18; TEMP 36.7; O2SAT 92
[2025-05-01 12:06] LABS: Glucose, Whole Blood 213 mg/dL (60-115)
--- NOTE | 2025-05-01 12:40 | HO.WOUND ---
Wound Consult: Follow up 64 yr old admitted to [facility] on 04/16/25- See progress notes and H&P for detailed history. Wound follow up for head, buttocks. Patient agreeable to assessment and photo documentation. Seen in the ICU Right forehead abrasion- remains intact healed skin 04/23/25 05/01/25 Buttocks/coccyx Etiology: ?Fungal Dermatitis and MASD Wound Bed: dry desquamation noted 0 red pink maroon tissue remains blanchable, advancing boarders with satellite lesions noted Janet wound: ? No Induration, Fluctuance or Warmth noted Pain: painful to touch and cleansing Goals of Treatment: ? Provider to order antifungal followed by barrier cream 04/23/25 05/01/25 Left elbow- resurfaced wound foam re-applied for protection bilateral heels not pictured -intact pink and blanching- heel foam dressing removed and reapplied - off loaded on pillows Recommendations: 1. Turn and Reposition every 2 hours and as needed for patient comfort. Use pillows or wedges to support off loading positions. 2. Off Load all bony prominences with use of pillows and heel boots if needed. Apply Preventative foams where needed. 3. Monitor for incontinence and moisture control, use barrier creams when needed for prevention and treatment. 4. Provide adequate and supplemental nutrition. 5. Order or Continue low air loss mattress. 6. When applicable maintain blood glucose levels per Providers order. Buttock/coccyx: Off Load Pressure with Q2 hr turns and use of pillows - Cleanse with PH balance spray or wipes, pat dry. ?Apply antifungal power to assist with moisture management.? Be sure to dust of excess powder to prevent caking on skin and in folds. Apply per provider orders. Apply thin layer of Triad to wound bed. Do not remove all of paste between applications as this may cause further skin damage.? Cover with foam dressing to aid in off loading and protection from friction. Change every 3 days and PRN. Bilateral heels: Elevate heels off bed with pillows and preventative foam dressing in place, peel back and assess Q shift and change every 5-7 days and PRN. Left elbow: cleanse with saline, apply foam dressing, change every 3 days and PRN. Lips: routine mouth care with oral moisturizer Re-consult wound care Nurse for wound deterioration or wound changes.
[2025-05-01 15:19] VITALS: BP 103/62; PULSE 112; RESP 18; TEMP 36.6; O2SAT 94
[2025-05-01 17:39] LABS: Glucose, Whole Blood 216 mg/dL (60-115)
[2025-05-01 17:47] VITALS: BP 122/73
[2025-05-01 19:58] VITALS: BP 107/68; PULSE 112; RESP 18; TEMP 36.4; O2SAT 92
[2025-05-01] MEDS: Parenteral Nutrition 1,920 ML 80 ML IV (20:16)
[2025-05-02] VITALS (8 sets, daily range): BP systolic 103–115; BP diastolic 59–77; PULSE 95–126; RESP 18–28; TEMP 36.5–37.9; O2SAT 92–97; BMI 26.0
[2025-05-02 00:17] LABS: Glucose, Whole Blood 192 mg/dL (60-115)
[2025-05-02 06:22] LABS: Glucose, Whole Blood 198 mg/dL (60-115)
[2025-05-02 09:07] LABS: Hematocrit 26.7 % (42.0-52.0); Hemoglobin 8.7 g/dl (14.0-18.0); Mean Corpuscular HGB Conc 32.6 g/dl (31.0-36.0); Mean Corpuscular Hemoglobin 33.3 pg (27.0-33.0); Mean Corpuscular Volume 102.3 fL (80.0-98.0); NRBC Abs Auto 0.030 X10*3/uL (0.0-0.012); NRBC Pct Auto 0.3 /100WBC (0.0-0.2); Red Blood Count 2.61 X10*6/uL (4.60-5.80)
[2025-05-02] MEDS: Thiamine HCL 100 MG in 0.9 % Sodium Chloride 100 ML 202 MG IV (09:09)
[2025-05-02] MEDS: Furosemide 20 MG/2 ML VIAL IVPUSH ×2 (09:09→17:49)
[2025-05-02] MEDS: 0.9 % Sodium Chloride Flush 3 ML SYRINGE IVFLUSH ×2 (09:10→16:51)
[2025-05-02 09:11] LABS: Platelet Count 87 X10*3/uL (160-400); WBC ABN SCTR FOR CBC 1; White Blood Count 9.9 X10*3/uL (4.8-10.8)
[2025-05-02 09:31] LABS: Alanine Aminotransferase 82 U/L (0-40); Albumin Level 3.1 g/dL (3.5-5.0); Alkaline Phosphatase 156 U/L (39-117); Anion Gap 13 (12-20); Aspartate Amino Transferase 174 U/L (5-37); Blood Urea Nitrogen 24 mg/dL (9-16); Calcium 9.1 mg/dL (8.4-10.2); Carbon Dioxide 23 mmol/L (22-29); Chloride 101 mmol/L (96-108); Creatinine Clr Calc Pharmacy 96.9; Estimated Glomerular Filt Rate > 60; Potassium 4.6 mmol/L (3.3-5.1); Sodium 132 mmol/L (135-145); Total Protein 7.2 g/dL (6.5-8.0)
[2025-05-02 10:25] LABS: Magnesium 1.9 mg/dL (1.6-2.6)
--- NOTE | 2025-05-02 10:31 | MHC.CLN ---
F/U PT NOT TAKING SIGNIFICANT PO AT THIS TIME [employer]ILRO[employer] FOLLOWING FOR APPROPRIATE DIET CONSISTENCY REVIEWED LABS DISCUSSED WITH PHARMACY CONTINUE PPN AT 80ML PER HOUR WITH 97G LIPIDS PROVIDES 1949 KCALS (25KCALS/KG), 82G PROTEIN (1.07G/KG), 192G DEXTROSE REPLETE LYTES NEEDED
--- NOTE | 2025-05-02 10:58 | HO.PM.IMPN ---
Subjective Subjective Date of Service: 05/02/25 Interval History: f/u on post icu care for acute resp failure, gib/anemia, aspiration, delirium, reqquired intubation, confused, ongoing diarrhea with rectal tube, persistent tachycardia, mild abd distention, he is denying abdmonal pain, CT yesterday no clear obstruction ileus vs low grade obs Physical Exam Vital Signs: Vital Signs: Last Vital Signs Temp 98.3 F 05/02/25 08:00 Pulse 116 H 05/02/25 08:00 Resp 24 H 05/02/25 08:00 BP 103/69 05/02/25 08:00 Pulse Ox 95 05/02/25 08:00 O2 Del Method Nasal Cannula 05/02/25 08:00 O2 Flow Rate 1 05/02/25 08:00 FiO2 35 04/28/25 12:00 BMI result Body Mass Index 26.0 Const: Other: General: Alert but confused, no acute distress Resp: CTA bilateral CVS: S1,S2,RRR GI: +BS, NT, mild distention, Skin: No rash Neuro: motor grossly intact Psych: appropriate affect Objective Data Active Medications Albuterol/Ipratropium (Albuterol/Iprat 2.5/0.5mg 3 Ml Ampul.Neb) 3 ml INHALE RQ4H WHILE AWAKE PRN PRN Reason: Wheezing Dextrose (Dextrose 50 % 25 Gm/50 Ml Syringe) 25 gm IVPUSH Q15M PRN; Protocol PRN Reason: per Hypoglycemia Standing Ord. Furosemide (Furosemide 20 Mg/2 Ml Vial) 20 mg IVPUSH BID@0900,1800 [facility]; Protocol Last Admin: 05/02/25 09:09 Dose: 20 mg Documented By: MIKE Glucose (Glucose Gel 15 Gm Gel..Gram.) 15 gm PO Q15M PRN; Protocol PRN Reason: per Hypoglycemia Standing Ord. Thiamine HCl 100 mg/ Sodium (Chloride) 101 mls @ 202 mls/hr IV DAILY [facility] Last Infusion: 05/02/25 09:51 Dose: Infused Documented By: MIKE Folic Acid 1 mg/ Sodium (Chloride) 50.2 mls @ 100.4 mls/hr IV DAILY [facility] Last Infusion: 05/02/25 09:51 Dose: Infused Documented By: MIKE Nutrition (Parenteral) (Parenteral Nutrition) 1,920 mls @ 80 mls/hr IV .Q24H [facility]; Protocol Stop: 05/02/25 20:59 Last Admin: 05/01/25 20:16 Dose: 80 mls/hr Documented By: REYNA Nutrition (Parenteral) (Parenteral Nutrition) 1,920 mls @ 80 mls/hr IV .Q24H [facility]; Protocol Stop: 05/03/25 20:59 Insulin Human Lispro (Insulin Lispro 100 Unit/Ml 3 Ml Vial) 0 unit SUBCUT Q6H [facility]; Protocol Last Admin: 05/02/25 06:21 Dose: 2 unit Documented By: REYNA Ondansetron HCl (Ondansetron Hcl 4 Mg/2 Ml Vial) 4 mg IVPUSH Q8H PRN PRN Reason: Nausea and Vomiting Pharmacy Consult (Consult Rx Parenteral Nutrition Ordering) 1 each MISCELLANE DAILY PRN PRN Reason: Consult order Sodium Chloride (0.9 % Sodium Chloride Flush 3 Ml Syringe) [facility] Last Admin: 05/02/25 09:10 Dose: 3 ml Documented By: MIKE Labs 05/02/25 08:48 05/02/25 08:48 Labs: Laboratory Results - last 24 hr 05/01/25 05/01/25 05/02/25 12:01 17:36 00:13 MCV MCH MCHC RDW Plt Count MPV Absolute Nucleated RBC Nucleated RBC % (auto) Anion Gap Estim Creat Clear Calc Estimated GFR POC Glucose 213 H 216 H 192 H Random Glucose Calcium Phosphorus Magnesium Total Bilirubin Direct Bilirubin AST ALT Alkaline Phosphatase Total Protein Albumin 05/02/25 05/02/25 05/02/25 06:19 08:48 10:03 MCV 102.3 H MCH 33.3 H MCHC 32.6 RDW 22.4 H Plt Count 87 L MPV 11.9 Absolute Nucleated RBC 0.030 H Nucleated RBC % (auto) 0.3 H Anion Gap 13 Estim Creat Clear Calc 96.9 Estimated GFR > 60 POC Glucose 198 H Random Glucose 171 H Calcium 9.1 Phosphorus 3.3 Magnesium 1.9 Total Bilirubin 6.1 H Direct Bilirubin 4.2 H AST 174 H ALT 82 H Alkaline Phosphatase 156 H Total Protein 7.2 Albumin 3.1 L Assessment and Plan (1) Alcohol withdrawal: Status: Acute (2) End stage liver disease: Status: Acute (3) Upper GI bleed: Status: Acute (4) Acute and chronic respiratory failure with hypoxia: Status: Acute (5) Pneumonia: Status: Acute Plan 64-year-old gentleman with underlying history of alcohol abuse with prior alcohol withdrawal seizures admitted on 04/16/2025 with mechanical falls and withdrawal seizures with hospital course further complicated by upper GI bleed status post EGD noted gastritis and esophageal webs status post dilation, delirium tremens with dysphagia with aspiration and hypoxic respiratory failure requiring intubation and ventilatory support on 04/21/2025, extubated on 04/28/2025. Presently with rectal tube, now tachycardia, and vomitted. Neuro: Toxic encephalopathy secondary to alcohol withdrawal, and likely icu delirium. Check ammonia level Cardiac: tachycardia, likely from underlying illness and has been chronic Pulmonary: Acute hypoxic respiratory failure secondary to aspiration with dysphagia requiring intubation, extubated 04/28/2025. No longer on Abx, O2 95 on 1 liters, nl wbc Renal: No acute issues. Endo: No acute issues. GI: Upper GI bleed status post EGD on 04/19 with portal gastropathy and also esophageal web status post dilation. Now with nausea dn vomiting, mild distention on exam, rectal tub in placed. CT small bowel dilatation with no transition pt, N/V stopped, surgery input, unlikely candidate for intervention. Alcoholic liver disease with chronicall elevated LFTs appear stable. ID: Completed antibiotic course for aspiration pneumonia, WBC remains normal, no fever Heme/Onc: Chronic thrombocytopenia, likely alcohol dependence related. Psych: No acute issues. Miscellaneous: No acute issues. Prophylaxis: no heparin given GIB, but will rechallenge and closely monitor Diet: NPO Total time managing care of this patient today: 80 minutes. Quality Stroke Does the patient have a stroke diagnosis?: No VTE Prior VTE?: No VTE Risk Level:: Medical - moderate - high VTE Device Contraindication: N/A - Device Ordered VTE Drug Contraindication: Treatment Not Tolerated
[2025-05-02 12:03] LABS: Glucose, Whole Blood 204 mg/dL (60-115)
--- NOTE | 2025-05-02 13:11 | MHC.CM.PN ---
EMR REVIEWED, PT DOWNGRADE FROM ICU ON 04/30, PT CONT'S TO RECEIVE TPN, IV LASIX BID AND RECTAL TUBE REMAINS IN PLACE, PER HOSPITALIST PLAN FOR GOC W/PT'S BROTHER/HCP CHAUNCEY GARCIA CM WILL CONT TO FOLLOW DC NEEDS.
--- NOTE | 2025-05-02 14:05 | P.CONGS_ITS ---
History of Present Illness Consult details Consult date: 05/02/25 <Na Morillo PA-C - Last Filed: 05/02/25 14:33> Reason for consult: other (SBO vs ileus) <BELLA Rey Last Filed: 05/02/25 14:33> Requesting physician: Shamar Jose <Na Morillo PA-C - Last Filed: 05/02/25 14:33> Narrative: 64-year-old male with PMH significant for alcohol use disorder who initially presented to the ED after fall with head trauma. He had reported drinking heavily over the past several months with multiple falls and concern for seizures. He was admitted to the hospital on 04/16/2025 for ETOH withdrawals. He underwent upper endoscopy for evaluation of his anemia, concern for UGIB. This showed esophageal web, esophagitis, hiatal hernia, portal hypertensive gastropathy and duodenopathy. He developed acute hypoxic respiratory failure secondary to aspiration with dysphagia and continued to have further worsening in his respiratory status needing increasing oxygen requirement and eventually was transferred to the ICU and was intubated and placed on ventilator and pressor support on 04/21/25. He was eventually extubated on 04/28/25. He is now on med/tele and apparently vomited yesterday. CT scan therefore obtained which showed diffuse dilatation of the majority of the small bowel with a gradual tapering in caliber in the terminal ileal region without transition point. General surgery was therefore consulted. He currently denies any abdominal pain. He denies any further nausea/vomiting and this was confirmed with staff. Rectal tube is in place with large amount of liquid stool. He denies any prior abdominal surgery. <Na Morillo PA-C Last Filed: 05/02/25 14:33> Review of Systems 2 Constitutional: Constitutional: Denies chills and Denies fever(s) < BELLA Rey Last Filed: 05/02/25 14:33> Gastrointestinal: Gastrointestinal: Reports as per HPI <BELLA Rey Last Filed: 05/02/25 14:33> [facility] Past Medical History Medical History: Medical History Liver lesion Lesion of liver History of alcohol abuse Tobacco abuse Gout Tongue abnormality COVID-19 vaccine series completed Use of cane as ambulatory aid History of recent fall Hx of concussion Anxiety Wears dentures Primary osteoarthritis of right hip HTN (hypertension) <Na Morillo PA-C - Last Filed: 05/02/25 14:33> Family History Family History: Family History Father No problems noted. Mother Cirrhosis <Na Morillo PA-C - Last Filed: 05/02/25 14:33> Surgical History Surgical History: Surgical History History of total left hip arthroplasty Hx of colonoscopy History of fracture of leg History of arm fracture History of back surgery <BELLA Rey Last Filed: 05/02/25 14:33> Social History Social History: Social History Household Members: Other Housing: Apartment Are you a primary rn complex care to a significant other at home: No Do you presently have visiting nurse or other home services: No Alcohol intake: former Comment: sitter 1:1 Patient Tobacco Use Status: Current everyday Tobacco user Tobacco use type: Cigarette Cigarette Packs Per Day: 1 Cigarettes Per Day: 20.0 Years Smoked: 46 e-Cigarette/Vaping Use: Never Used Second Hand Smoke Exposure: No Substance Use Type: Opiates Advance Directives Date on File: 04/29/25 service: No Current occupational status: retired Current occupation: rt handed <BELLA Rey Last Filed: 05/02/25 14:33> Meds Allergies/Adverse reactions: Allergies Allergy/AdvReac Type Severity Reaction Status Date / Time No Known Allergies Allergy Verified 04/18/25 08:47 <BELLA Rey Last Filed: 05/02/25 14:33> Active Medications: Current Medications Albuterol/Ipratropium (Albuterol/Iprat 2.5/0.5mg 3 Ml Ampul.Neb) 3 ml INHALE RQ4H WHILE AWAKE PRN PRN Reason: Wheezing Dextrose (Dextrose 50 % 25 Gm/50 Ml Syringe) 25 gm IVPUSH Q15M PRN; Protocol PRN Reason: per Hypoglycemia Standing Ord. Furosemide (Furosemide 20 Mg/2 Ml Vial) 20 mg IVPUSH BID@0900,1800 [facility]; Protocol Last Admin: 05/02/25 09:09 Dose: 20 mg Glucose (Glucose Gel 15 Gm Gel..Gram.) 15 gm PO Q15M PRN; Protocol PRN Reason: per Hypoglycemia Standing Ord. Thiamine HCl 100 mg/ Sodium (Chloride) 101 mls @ 202 mls/hr IV DAILY [facility] Last Infusion: 05/02/25 09:51 Dose: Infused Folic Acid 1 mg/ Sodium (Chloride) 50.2 mls @ 100.4 mls/hr IV DAILY [facility] Last Infusion: 05/02/25 09:51 Dose: Infused Nutrition (Parenteral) (Parenteral Nutrition) 1,920 mls @ 80 mls/hr IV .Q24H [facility]; Protocol Stop: 05/02/25 20:59 Last Admin: 05/01/25 20:16 Dose: 80 mls/hr Nutrition (Parenteral) (Parenteral Nutrition) 1,920 mls @ 80 mls/hr IV .Q24H [facility]; Protocol Stop: 05/03/25 20:59 Insulin Human Lispro (Insulin Lispro 100 Unit/Ml 3 Ml Vial) 0 unit SUBCUT Q6H [facility]; Protocol Last Admin: 05/02/25 12:38 Dose: 4 unit Ondansetron HCl (Ondansetron Hcl 4 Mg/2 Ml Vial) 4 mg IVPUSH Q8H PRN PRN Reason: Nausea and Vomiting Pharmacy Consult (Consult Rx Parenteral Nutrition Ordering) 1 each MISCELLANE DAILY PRN PRN Reason: Consult order Sodium Chloride (0.9 % Sodium Chloride Flush 3 Ml Syringe) 3 ml IVFLUSH QSHIFT [facility] Last Admin: 05/02/25 09:10 Dose: 3 ml <Na Morillo PA-C - Last Filed: 05/02/25 14:33> Home medications: Home Medications ?Medication ?Instructions ?Recorded ?Confirmed ?Last Taken ?Type No Known Home Meds 04/16/25 04/16/25 Un known History <Na Morillo PA-C - Last Filed: 05/02/25 14:33> Physical Exam 2 Vital Signs: Vital Signs: Last Vital Signs Temp 100.3 F 05/02/25 12:00 Pulse 118 H 05/02/25 12:00 Resp 28 H 05/02/25 12:00 BP 106/70 05/02/25 12:00 Pulse Ox 95 05/02/25 12:00 O2 Del Method Nasal Cannula 05/02/25 12:00 O2 Flow Rate 1 05/02/25 12:00 FiO2 35 04/28/25 12:00 BMI result Body Mass Index 26.0 <BELLA Rey Last Filed: 05/02/25 14:33> Const: General: comfortable and alert <BELLA Rey Last Filed: 05/02/25 14:33> Eyes: Other: sclera icteric <BELLA Rey Last Filed: 05/02/25 14:33> Resp: Effort & Inspection: normal respiratory effort and able to speak in complete sentences <BELLA Rey Last Filed: 05/02/25 14:33> GI: Other: protuberant abdomen, distended and tympanitic but soft no surgical scars noted nontender small, soft reducible umbilical hernia <BELLA Rey Last Filed: 05/02/25 14:33> Skin: General skin exam: jaundice <BELLA Rey Last Filed: 05/02/25 14:33> Neuro: General: moves all extremities <BELLA Rey Last Filed: 05/02/25 14:33> Results Labs Result diagrams: 05/02/25 08:48 05/02/25 08:48 <BELLA Rey Last Filed: 05/02/25 14:33> Labs: Abnormal lab results 05/01/25 05/02/25 05/02/25 Range/Units 17:36 00:13 06:19 RBC (4.60-5.80) X10*6/uL Hgb (14.0-18.0) g/dl Hct (42.0-52.0) % MCV (80.0-98.0) fL MCH (27.0-33.0) pg RDW (11.0-16.0) % Plt Count (160-400) X10*3/uL Absolute Nucleated RBC (0.0-0.012) X10*3/uL Nucleated RBC % (auto) (0.0-0.2) /100WBC Sodium (135-145) mmol/L BUN (9-16) mg/dL POC Glucose 216 H 192 H 198 H (60-115) mg/dL Random Glucose (60-115) mg/dL Total Bilirubin (0.0-1.0) mg/dL Direct Bilirubin (0.0-0.5) mg/dL AST (5-37) U/L ALT (0-40) U/L Alkaline Phosphatase (39-117) U/L Albumin (3.5-5.0) g/dL 05/02/25 05/02/25 Range/Units 08:48 11:48 RBC 2.61 L (4.60-5.80) X10*6/uL Hgb 8.7 L (14.0-18.0) g/dl Hct 26.7 L (42.0-52.0) % MCV 102.3 H (80.0-98.0) fL MCH 33.3 H (27.0-33.0) pg RDW 22.4 H (11.0-16.0) % Plt Count 87 L (160-400) X10*3/uL Absolute Nucleated RBC 0.030 H (0.0-0.012) X10*3/uL Nucleated RBC % (auto) 0.3 H (0.0-0.2) /100WBC Sodium 132 L (135-145) mmol/L BUN 24 H (9-16) mg/dL POC Glucose 204 H (60-115) mg/dL Random Glucose 171 H (60-115) mg/dL Total Bilirubin 6.1 H (0.0-1.0) mg/dL Direct Bilirubin 4.2 H (0.0-0.5) mg/dL AST 174 H (5-37) U/L ALT 82 H (0-40) U/L Alkaline Phosphatase 156 H (39-117) U/L Albumin 3.1 L (3.5-5.0) g/dL Short CBC 05/02/25 Range/Units 08:48 WBC 9.9 (4.8-10.8) X10*3/uL Hgb 8.7 L (14.0-18.0) g/dl Hct 26.7 L (42.0-52.0) % Plt Count 87 L (160-400) X10*3/uL BMP 05/02/25 08:48 Sodium 132 L Potassium 4.6 Chloride 101 Carbon Dioxide 23 BUN 24 H Creatinine 0.71 Calcium 9.1 Liver Function 05/02/25 Range/Units 08:48 Total Bilirubin 6.1 H (0.0-1.0) mg/dL Direct Bilirubin 4.2 H (0.0-0.5) mg/dL AST 174 H (5-37) U/L ALT 82 H (0-40) U/L Alkaline Phosphatase 156 H (39-117) U/L Albumin 3.1 L (3.5-5.0) g/dL Urine 04/16/25 Range/Units 17:52 Urine Color Dark Yellow Urine Appearance Clear Urine pH 6.5 (5.0-9.0) Ur Specific [place] 1.010 (1.005-1.025) Urine Protein Trace (Neg-Trace) mg/dL Urine Glucose (UA) Negative (Negative) mg/dL All other labs normal. <Na Morillo PA-C - Last Filed: 05/02/25 14:33> Imaging Abdomen CT scan report/results: report reviewed and image reviewed <Na Morillo PA-C - Last Filed: 05/02/25 14:33> Assessment and Plan (1) Ileus: Status: Acute <Na Morillo PA-C - Last Filed: 05/02/25 14:33> 64-year-old male with PMH significant for alcohol use disorder admitted for ETOH withdrawals, UGIB who developed acute hypoxic respiratory failure secondary to aspiration with dysphagia requiring intubation, subsequently extubated and downgraded to med/tele. He apparently vomited yesterday and therefore CT scan obtained which showed diffuse dilatation of small bowel without transition point concerning for SBO or ileus. He does have a good amount of output in rectal tube and has air distally in his colon. Patient denies any abdominal surgery and has no abdominal scars. Picture more consistent with ileus likely multifactorial secondary to acute illness, cirrhosis and ascites, electrolyte imbalances. Unfortunately he is high risk for NGT due to his portal hypertensive gastropathy if he were to vomit again. Would recommend continuing supportive measures and deescalate diet for now, correct electrolytes, increasing activity/OOB as able. Will continue to follow. <Na Morillo PA-C - Last Filed: 05/02/25 14:33> 64-year-old male with PMH significant for alcohol use disorder admitted for ETOH withdrawals, UGIB who developed acute hypoxic respiratory failure secondary to aspiration with dysphagia requiring intubation, subsequently extubated and downgraded to med/tele. He apparently vomited yesterday and therefore CT scan obtained which showed diffuse dilatation of small bowel without transition point concerning for SBO or ileus. He does have a good amount of output in rectal tube and has air distally in his colon. Patient denies any abdominal surgery and has no abdominal scars. Picture more consistent with ileus likely multifactorial secondary to acute illness, cirrhosis and ascites, electrolyte imbalances. Unfortunately he is high risk for NGT due to his portal hypertensive gastropathy if he were to vomit again. Would recommend continuing supportive measures and deescalate diet for now, correct electrolytes, increasing activity/OOB as able. Will continue to follow. pt seen and examined independently - 64 year old male with multiple med issues and hepatic issues due to etoh abuse - GI bleed/ SBO/ ileus - has ascites. unable to get a history from patient - wakens and follows some commands obviously jaundiced. denies pain, abdomen distended positive bowel sounds rectal tube in place - cont with conservative care - npo and ivf - correct electrolyes and oob into chair and move with assistance as has fall history - pt's cirrhosis complicates this. no need for surgical intervention at this time. <Cindy Parson MD - Last Filed: 05/02/25 23:30> Procedures Date of Service Date of Service: 05/02/25 <Na Morillo PA-C - Last Filed: 05/02/25 14:33> 05/02/25 <Cindy Parson MD - Last Filed: 05/02/25 23:30>
--- NOTE | 2025-05-02 14:05 | MHC.SLORD ---
Speech Language Pathology Order Status: Pt sleeping soundly, not eating much this morning per report, prognosis poor per MD. ATHLETIC TEAM PHYSICIAN continues to follow as indicated, NDD1 with NTL.
[2025-05-02 17:32] LABS: Glucose, Whole Blood 192 mg/dL (60-115)
[2025-05-02] MEDS: Parenteral Nutrition 1,920 ML 80 ML IV (21:53)
[2025-05-03] VITALS (7 sets, daily range): BP systolic 92–119; BP diastolic 51–73; PULSE 51–107; RESP 18–20; TEMP 36.1–36.7; O2SAT 93–98
[2025-05-03 00:15] LABS: Glucose, Whole Blood 192 mg/dL (60-115)
[2025-05-03 06:24] LABS: Glucose, Whole Blood 160 mg/dL (60-115)
[2025-05-03 07:05] LABS: Anion Gap 13 (12-20); Blood Urea Nitrogen 24 mg/dL (9-16); Calcium 8.7 mg/dL (8.4-10.2); Carbon Dioxide 23 mmol/L (22-29); Chloride 100 mmol/L (96-108); Creatinine Clr Calc Pharmacy 99.7; Estimated Glomerular Filt Rate > 60; Magnesium 2.0 mg/dL (1.6-2.6); Potassium 4.1 mmol/L (3.3-5.1); Sodium 132 mmol/L (135-145)
[2025-05-03 07:26] LABS: Glucose, Whole Blood 157 mg/dL (60-115)
--- NOTE | 2025-05-03 08:03 | P.PNGS_ITS ---
Subjective Subjective Date of Service: 05/03/25 <Na Morillo PA-C - Last Filed: 05/03/25 08:07> 05/03/25 <Spike Samuel MD - Last Filed: 05/03/25 09:36> Interval history: Lying comfortably in bed. Denies abd pain. No further reports of vomiting. <Na Morillo PA-C - Last Filed: 05/03/25 08:07> Physical Exam 2 Vital Signs: Vital Signs: Last Vital Signs Temp 97.0 F 05/03/25 07:15 Pulse 97 05/03/25 07:15 Resp 18 05/03/25 07:15 BP 106/65 05/03/25 07:15 Pulse Ox 94 05/03/25 07:15 O2 Del Method Room Air 05/03/25 07:15 O2 Flow Rate 1 05/02/25 23:31 FiO2 35 04/28/25 12:00 BMI result Body Mass Index 26.0 <Na Morillo PA-C - Last Filed: 05/03/25 08:07> Const: General: comfortable, no acute distress and alert <Na Morillo PA-C - Last Filed: 05/03/25 08:07> Resp: Effort & Inspection: normal respiratory effort <BELLA Rey Last Filed: 05/03/25 08:07> GI: Other: abdomen remains protuberant and distended, tympanitic, maybe mildly improved but soft nontender new rectal tube in place with liquid output in tubing <Na Morillo PA-C - Last Filed: 05/03/25 08:07> Skin: General skin exam: jaundice <BELLA Rey Last Filed: 05/03/25 08:07> Objective Data Active Medications Albuterol/Ipratropium (Albuterol/Iprat 2.5/0.5mg 3 Ml Ampul.Neb) 3 ml INHALE RQ4H WHILE AWAKE PRN PRN Reason: Wheezing Dextrose (Dextrose 50 % 25 Gm/50 Ml Syringe) 25 gm IVPUSH Q15M PRN; Protocol PRN Reason: per Hypoglycemia Standing Ord. Furosemide (Furosemide 20 Mg/2 Ml Vial) 20 mg IVPUSH BID@0900,1800 [facility]; Protocol Last Admin: 05/02/25 17:49 Dose: 20 mg Documented By: MIKE Glucose (Glucose Gel 15 Gm Gel..Gram.) 15 gm PO Q15M PRN; Protocol PRN Reason: per Hypoglycemia Standing Ord. Thiamine HCl 100 mg/ Sodium (Chloride) 101 mls @ 202 mls/hr IV DAILY [facility] Last Infusion: 05/02/25 09:51 Dose: Infused Documented By: MIKE Folic Acid 1 mg/ Sodium (Chloride) 50.2 mls @ 100.4 mls/hr IV DAILY [facility] Last Infusion: 05/02/25 09:51 Dose: Infused Documented By: MIKE Nutrition (Parenteral) (Parenteral Nutrition) 1,920 mls @ 80 mls/hr IV .Q24H [facility]; Protocol Stop: 05/03/25 20:59 Last Admin: 05/02/25 21:53 Dose: 80 mls/hr Documented By: SLICK Nutrition (Parenteral) (Parenteral Nutrition) 1,920 mls @ 80 mls/hr IV .Q24H [facility]; Protocol Stop: 05/04/25 20:59 Insulin Human Lispro (Insulin Lispro 100 Unit/Ml 3 Ml Vial) 0 unit SUBCUT Q6H [facility]; Protocol Last Admin: 05/03/25 06:44 Dose: 2 unit Documented By: SLICK Ondansetron HCl (Ondansetron Hcl 4 Mg/2 Ml Vial) 4 mg IVPUSH Q8H PRN PRN Reason: Nausea and Vomiting Pharmacy Consult (Consult Rx Parenteral Nutrition Ordering) 1 each MISCELLANE DAILY PRN PRN Reason: Consult order Sodium Chloride (0.9 % Sodium Chloride Flush 3 Ml Syringe) 3 ml IVFLUSH QSHIFT [facility] Last Admin: 05/03/25 00:37 Dose: Not Given Documented By: SLICK Non-Admin Reason: IV Running <Na Morillo PA-C - Last Filed: 05/03/25 08:07> Labs CBC & Chem 7: 05/02/25 08:48 05/03/25 06:21 <Na Morillo PA-C - Last Filed: 05/03/25 08:07> Labs: Laboratory Results - last 24 hr 1105/02/25 05/02/25 08:48 10:03 11:48 MCV 102.3 H MCH 33.3 H MCHC 32.6 RDW 22.4 H Plt Count 87 L MPV 11.9 Absolute Nucleated RBC 0.030 H Nucleated RBC % (auto) 0.3 H Hold Purple Top Anion Gap 13 Estim Creat Clear Calc 96.9 Estimated GFR > 60 POC Glucose 204 H Random Glucose 171 H Calcium 9.1 Phosphorus 3.3 Magnesium 1.9 Total Bilirubin 6.1 H Direct Bilirubin 4.2 H AST 174 H ALT 82 H Alkaline Phosphatase 156 H Total Protein 7.2 Albumin 3.1 L 05/02/25 05/03/25 05/03/25 17:27 00:11 06:20 MCV MCH MCHC RDW Plt Count MPV Absolute Nucleated RBC Nucleated RBC % (auto) Hold Purple Top Anion Gap Estim Creat Clear Calc Estimated GFR POC Glucose 192 H 192 H 160 H Random Glucose Calcium Phosphorus Magnesium Total Bilirubin Direct Bilirubin AST ALT Alkaline Phosphatase Total Protein Albumin 05/03/25 05/03/25 06:21 07:22 MCV MCH MCHC RDW Plt Count MPV Absolute Nucleated RBC Nucleated RBC % (auto) Hold Purple Top SEE NOTE Anion Gap 13 Estim Creat Clear Calc 99.7 Estimated GFR > 60 POC Glucose 157 H Random Glucose 152 H Calcium 8.7 Phosphorus 3.8 Magnesium 2.0 Total Bilirubin Direct Bilirubin AST ALT Alkaline Phosphatase Total Protein Albumin <Na Morillo PA-C - Last Filed: 05/03/25 08:07> Procedures Date of Service Date of Service: 05/03/25 <Na Morillo PA-C - Last Filed: 05/03/25 08:07> 05/03/25 <Spike Samuel MD - Last Filed: 05/03/25 09:36> Progress Note: A&P Assessment and plan (1) Ileus: Status: Acute <Na Morillo PA-C - Last Filed: 05/03/25 08:07> Assessment and Plan: Abdomen distended but soft, no guarding or rebound He has liquid stools Appears short of breath and frail looking as baseline Multiple medical problems Cat scan reviewed - likely ileus type pattern No surgical intervention Bowel rest I have seen and examined him independently <Spike Samuel MD - Last Filed: 05/03/25 09:36> Assessment and Plan: Remains distended on exam but soft, maybe mildly improved. Rectal tubing with liquid output. Continue conservative measures for now with bowel rest, IV until distention improves. Surgical intervention not indicated. <BELLA Rey Last Filed: 05/03/25 08:07> Time Spent With Patient Time: Total time managing care of this patient today ____ minutes. <BELLA Rey Last Filed: 05/03/25 08:07> Quality Stroke Does the patient have a stroke diagnosis?: No <BELLA Rey Last Filed: 05/03/25 08:07> VTE Prior VTE?: No <BELLA Rey Last Filed: 05/03/25 08:07> VTE Risk Level:: Medical - moderate - high <BELLA Rey Last Filed: 05/03/25 08:07> VTE Device Contraindication: N/A - Device Ordered <BELLA Rey Last Filed: 05/03/25 08:07> VTE Drug Contraindication: Treatment Not Tolerated <BELLA Rey Last Filed: 05/03/25 08:07>
[2025-05-03] MEDS: Thiamine HCL 100 MG in 0.9 % Sodium Chloride 100 ML 202 MG IV (08:28)
[2025-05-03] MEDS: Furosemide 20 MG/2 ML VIAL IVPUSH ×2 (08:38→18:04)
[2025-05-03] MEDS: 0.9 % Sodium Chloride Flush 3 ML SYRINGE IVFLUSH ×2 (09:20→17:12)
--- NOTE | 2025-05-03 09:42 | MHC.CLN ---
F/U PT IS CURRENTLY NPO R/T ILEUS REVIEWED LABS-NOTE SERUM NA 132 DISCUSSED WITH PHARMACY CONTINUE PPN AT 80ML PER HOUR WITH 97G LIPIDS PROVIDES 1949 KCALS (25KCALS/KG), 82G PROTEIN (1.07G/KG), 192G DEXTROSE REPLETE LYTES NEEDED
--- NOTE | 2025-05-03 10:53 | MHC.SLORD ---
Speech Language Pathology Order Status: Patient NPO per MD this date. TREADLE CUT OFF SAW OPERATOR to continue to follow-up when appropriate. Per discussion with RN, patient with poor prognosis and not looking very well this date.
[2025-05-03 11:52] LABS: Glucose, Whole Blood 172 mg/dL (60-115)
--- NOTE | 2025-05-03 13:39 | P.PNIM_ITS ---
Subjective Subjective Date of Service: 05/03/25 Interval History: f/u on post icu care for acute resp failure, gib/anemia, aspiration, delirium, reqquired intubation Overall less confused, no abd pain Physical Exam 2 Vital Signs: Vital Signs: Last Vital Signs Temp 97.8 F 05/03/25 12:00 Pulse 94 05/03/25 12:00 Resp 19 05/03/25 12:00 BP 111/59 L 05/03/25 12:00 Pulse Ox 94 05/03/25 12:00 O2 Del Method Nasal Cannula 05/03/25 12:00 O2 Flow Rate 2 05/03/25 12:00 FiO2 35 04/28/25 12:00 BMI result Body Mass Index 26.0 Const: Other: General: Alert but confused, no acute distress Resp: CTA bilateral CVS: S1,S2,RRR GI: +BS, NT, mild distention, Skin: No rash Neuro: motor grossly intact Psych: appropriate affect Objective Data Active Medications Albuterol/Ipratropium (Albuterol/Iprat 2.5/0.5mg 3 Ml Ampul.Neb) 3 ml INHALE RQ4H WHILE AWAKE PRN PRN Reason: Wheezing Dextrose (Dextrose 50 % 25 Gm/50 Ml Syringe) 25 gm IVPUSH Q15M PRN; Protocol PRN Reason: per Hypoglycemia Standing Ord. Furosemide (Furosemide 20 Mg/2 Ml Vial) 20 mg IVPUSH BID@0900,1800 [facility]; Protocol Last Admin: 05/03/25 08:38 Dose: 20 mg Documented By: MIKE Glucose (Glucose Gel 15 Gm Gel..Gram.) 15 gm PO Q15M PRN; Protocol PRN Reason: per Hypoglycemia Standing Ord. Thiamine HCl 100 mg/ Sodium (Chloride) 101 mls @ 202 mls/hr IV DAILY [facility] Last Infusion: 05/03/25 09:14 Dose: Infused Documented By: MIKE Folic Acid 1 mg/ Sodium (Chloride) 50.2 mls @ 100.4 mls/hr IV DAILY [facility] Last Infusion: 05/03/25 09:19 Dose: Infused Documented By: MIKE Nutrition (Parenteral) (Parenteral Nutrition) 1,920 mls @ 80 mls/hr IV .Q24H [facility]; Protocol Stop: 05/03/25 20:59 Last Admin: 05/02/25 21:53 Dose: 80 mls/hr Documented By: SLICK Nutrition (Parenteral) (Parenteral Nutrition) 1,920 mls @ 80 mls/hr IV .Q24H [facility]; Protocol Stop: 05/04/25 20:59 Insulin Human Lispro (Insulin Lispro 100 Unit/Ml 3 Ml Vial) 0 unit SUBCUT Q6H [facility]; Protocol Last Admin: 05/03/25 13:34 Dose: 2 unit Documented By: MIKE Ondansetron HCl (Ondansetron Hcl 4 Mg/2 Ml Vial) 4 mg IVPUSH Q8H PRN PRN Reason: Nausea and Vomiting Pharmacy Consult (Consult Rx Parenteral Nutrition Ordering) 1 each MISCELLANE DAILY PRN PRN Reason: Consult order Sodium Chloride (0.9 % Sodium Chloride Flush 3 Ml Syringe) 3 ml IVFLUSH QSHIFT [facility] Last Admin: 05/03/25 09:20 Dose: 3 ml Documented By: MIKE Labs 05/02/25 08:48 05/04/25 06:14 Labs: Laboratory Results - last 24 hr 05/02/25 05/03/25 05/03/25 17:27 00:11 06:20 Hold Purple Top Anion Gap Estim Creat Clear Calc Estimated GFR POC Glucose 192 H 192 H 160 H Random Glucose Calcium Phosphorus Magnesium 05/03/25 05/03/25 05/03/25 06:21 07:22 11:38 Hold Purple Top SEE NOTE Anion Gap 13 Estim Creat Clear Calc 99.7 Estimated GFR > 60 POC Glucose 157 H 172 H Random Glucose 152 H Calcium 8.7 Phosphorus 3.8 Magnesium 2.0 Assessment and Plan (1) Alcohol withdrawal: Status: Acute (2) End stage liver disease: Status: Acute (3) Upper GI bleed: Status: Acute (4) Acute and chronic respiratory failure with hypoxia: Status: Acute (5) Pneumonia: Status: Acute Plan 64-year-old gentleman with underlying history of alcohol abuse with prior alcohol withdrawal seizures admitted on 04/16/2025 with mechanical falls and withdrawal seizures with hospital course further complicated by upper GI bleed status post EGD noted gastritis and esophageal webs status post dilation, delirium tremens with dysphagia with aspiration and hypoxic respiratory failure requiring intubation and ventilatory support on 04/21/2025, extubated on 04/28/2025. Presently with rectal tube, now tachycardia, and vomitted. Neuro: Toxic encephalopathy secondary to alcohol withdrawal, and likely icu delirium. improving Cardiac: tachycardia, likely from underlying illness and has been chronic, now wnl Pulmonary: Acute hypoxic respiratory failure secondary to aspiration with dysphagia requiring intubation, extubated 04/28/2025. No longer on Abx, O2 98 on 1 liters, nl wbc Renal: No acute issues. Endo: No acute issues. GI: Upper GI bleed status post EGD on 04/19 with portal gastropathy and also esophageal web status post dilation. Has had nausea and vomiting, mild distention on exam, rectal tub in placed. CT small bowel dilatation with no transition pt, N/V stopped, surgery input, unlikely candidate for intervention. Alcoholic liver disease with chronicall elevated LFTs appear stable. Presently no gi complaint, NPO but will get speech eval start diet, in the meantime continue TPN ID: Completed antibiotic course for aspiration pneumonia, WBC remains normal, no fever Heme/Onc: Chronic thrombocytopenia, likely alcohol dependence related. Psych: No acute issues. Miscellaneous: No acute issues. Prophylaxis: no heparin given GIB, but will rechallenge and closely monitor once stable Diet: NPO Plan and clincal course discussed with brother over the phone Total time managing care of this patient today: 80 minutes. Quality Stroke Does the patient have a stroke diagnosis?: No VTE Prior VTE?: No VTE Risk Level:: Medical - moderate - high VTE Device Contraindication: N/A - Device Ordered VTE Drug Contraindication: Treatment Not Tolerated
--- NOTE | 2025-05-03 13:59 | HO.WOUND ---
Wound Consult: follow up 64 yr old male admitted to [facility] on 04/16/25 - See progress notes and H&P for detailed history. Wound team following for IAD to buttocks/perineum- direct care RN with concerns for worsening area to buttocks/perineum. Patient agreeable to assessment and photo documentation. area is mildly advancing with scattered superficial areas of skin loss- patient with difficulties maintaining flexiseal and with increased moisture on skin. Stoma powder and skin prep applied to area to provide skin barrier - triad applied over top. 05/01/25 05/03/25 Right groin 05/03/25 05/03/25 left groin Etiology: MASD/IAD Wound Bed: moist red some satellite lesions noted to left groin Drainage / Odor: none Janet wound: ? No Induration, Fluctuance or Warmth noted Pain: Goals of Treatment: ? moisture barrier Recommendations: 1. Turn and Reposition every 2 hours and as needed for patient comfort. Use pillows or wedges to support off loading positions. 2. Off Load all bony prominences with use of pillows and heel boots if needed. Apply Preventative foams where needed. 3. Monitor for incontinence and moisture control, use barrier creams when needed for prevention and treatment. 4. Provide adequate and supplemental nutrition. 5. Order or Continue low air loss mattress. 6. When applicable maintain blood glucose levels per Providers order. Buttock/coccyx: Off Load Pressure with Q2 hr turns and use of pillows - Cleanse with PH balance spray or wipes, pat dry. Apply thin layer of Triad to wound bed. Do not remove all of paste between applications as this may cause further skin damage.?Reapply with each episode of incontinence Bilateral heels: Elevate heels off bed with pillows and preventative foam dressing in place, peel back and assess Q shift and change every 5-7 days and PRN. Lips: routine mouth care with oral moisturizer Re-consult wound care Nurse for wound deterioration or wound changes.
[2025-05-03 16:19] LABS: Glucose, Whole Blood 143 mg/dL (60-115)
[2025-05-03 18:51] LABS: Glucose, Whole Blood 163 mg/dL (60-115)
[2025-05-03] MEDS: Parenteral Nutrition 1,920 ML 80 ML IV (20:57)
[2025-05-03 23:36] LABS: Glucose, Whole Blood 161 mg/dL (60-115)
[2025-05-04] VITALS (7 sets, daily range): BP systolic 97–111; BP diastolic 53–73; PULSE 92–104; RESP 16–23; TEMP 36.6–37.2; O2SAT 97–99
[2025-05-04 05:09] LABS: Glucose, Whole Blood 145 mg/dL (60-115)
[2025-05-04 07:22] LABS: Anion Gap 11 (12-20); Blood Urea Nitrogen 24 mg/dL (9-16); Calcium 8.7 mg/dL (8.4-10.2); Carbon Dioxide 24 mmol/L (22-29); Chloride 103 mmol/L (96-108); Creatinine Clr Calc Pharmacy 104.3; Estimated Glomerular Filt Rate > 60; Magnesium 2.0 mg/dL (1.6-2.6); Potassium 4.0 mmol/L (3.3-5.1); Sodium 134 mmol/L (135-145)
[2025-05-04 08:25] LABS: Glucose, Whole Blood 140 mg/dL (60-115)
--- NOTE | 2025-05-04 10:54 | MHC.CLN ---
F/U REVIEWED LABS-NOTE SERUM NA SLIGHTLY IMPROVED FROM 132-->134 DISCUSSED WITH PHARMACY CONTINUE PPN AT 80ML PER HOUR WITH 97G LIPIDS PROVIDES 1949 KCALS (25KCALS/KG), 82G PROTEIN (1.07G/KG), 192G DEXTROSE REPLETE LYTES NEEDED GOAL TO RUN PPN AT MAX GOAL RATE NOTED ABOVE THRU WEEKEND RD CAN BE REACHED VIA TIGER CONNECT DURING OFF HOURS IF NEEDED
--- NOTE | 2025-05-04 10:56 | MHC.CM.PN ---
EMR REVIEWED, PT NOW W/ILEUS DAY 3, PT REMAINS NPO AND ON TPN/PPN, PER HOSPITALIST ANTIC PT WILL REMAIN INPT THROUGH EARLY NEXT WEEK, PT WILL NEED STR, CM WILL CONT TO FOLLOW DC NEEDS.
[2025-05-04] MEDS: Furosemide 20 MG/2 ML VIAL IVPUSH ×2 (11:32→17:28)
[2025-05-04] MEDS: 0.9 % Sodium Chloride Flush 3 ML SYRINGE IVFLUSH ×2 (11:32→21:04)
[2025-05-04] MEDS: Thiamine HCL 100 MG in 0.9 % Sodium Chloride 100 ML 202 MG IV (11:32)
--- NOTE | 2025-05-04 11:42 | HO.PM.IMPN ---
Subjective Subjective Date of Service: 05/04/25 Interval History: He appears more lucid today no abd pain, no nausea or vomitting Physical Exam Vital Signs: Vital Signs: Last Vital Signs Temp 97.8 F 05/04/25 08:00 Pulse 95 05/04/25 08:00 Resp 23 H 05/04/25 08:00 BP 111/73 05/04/25 08:00 Pulse Ox 98 05/04/25 08:00 O2 Del Method Nasal Cannula 05/04/25 08:00 O2 Flow Rate 2 05/04/25 08:00 FiO2 35 04/28/25 12:00 BMI result Body Mass Index 26.0 Const: Other: General: Alert less confused, no acute distress Resp: CTA bilateral CVS: S1,S2,RRR GI: +BS, NT, mild distention, Skin: No rash Neuro: motor grossly intact Psych: appropriate affect Objective Data Active Medications Albuterol/Ipratropium (Albuterol/Iprat 2.5/0.5mg 3 Ml Ampul.Neb) 3 ml INHALE RQ4H WHILE AWAKE PRN PRN Reason: Wheezing Dextrose (Dextrose 50 % 25 Gm/50 Ml Syringe) 25 gm IVPUSH Q15M PRN; Protocol PRN Reason: per Hypoglycemia Standing Ord. Furosemide (Furosemide 20 Mg/2 Ml Vial) 20 mg IVPUSH BID@0900,1800 [facility]; Protocol Last Admin: 05/04/25 11:32 Dose: 20 mg Documented By: MARY BETH Glucose (Glucose Gel 15 Gm Gel..Gram.) 15 gm PO Q15M PRN; Protocol PRN Reason: per Hypoglycemia Standing Ord. Heparin Sodium (Porcine) (Heparin Sodium,Porcine 5,000 Unit/Ml Vial) 5,000 unit SUBCUT BID [facility] Thiamine HCl 100 mg/ Sodium (Chloride) 101 mls @ 202 mls/hr IV DAILY [facility] Last Admin: 05/04/25 11:32 Dose: 202 mls/hr Documented By: MARY BETH Folic Acid 1 mg/ Sodium (Chloride) 50.2 mls @ 100.4 mls/hr IV DAILY [facility] Last Admin: 05/04/25 11:31 Dose: 100.4 mls/hr Documented By: MARY BETH Nutrition (Parenteral) (Parenteral Nutrition) 1,920 mls @ 80 mls/hr IV .Q24H [facility]; Protocol Stop: 05/05/25 20:59 Insulin Human Lispro (Insulin Lispro 100 Unit/Ml 3 Ml Vial) 0 unit SUBCUT Q6H [facility]; Protocol Last Admin: 05/04/25 05:28 Dose: Not Given Documented By: JORDAN Non-Admin Reason: No Insulin Coverage Nystatin (Nystatin Powder 15 Gm Bottle) 1 appl TOPICAL BID [facility]; Protocol Last Admin: 05/04/25 11:33 Dose: 1 appl Documented By: MARY BETH Ondansetron HCl (Ondansetron Hcl 4 Mg/2 Ml Vial) 4 mg IVPUSH Q8H PRN PRN Reason: Nausea and Vomiting Pharmacy Consult (Consult Rx Parenteral Nutrition Ordering) 1 each MISCELLANE DAILY PRN PRN Reason: Consult order Sodium Chloride (0.9 % Sodium Chloride Flush 3 Ml Syringe) 3 ml IVFLUSH QSHIFT [facility] Last Admin: 05/04/25 11:32 Dose: 3 ml Documented By: MARY BETH Labs 05/02/25 08:48 05/04/25 06:14 Labs: Laboratory Results - last 24 hr 05/03/25 05/03/25 05/03/25 11:38 16:09 18:46 Hold Purple Top Anion Gap Estim Creat Clear Calc Estimated GFR POC Glucose 172 H 143 H 163 H Random Glucose Calcium Phosphorus Magnesium 05/03/25 05/04/25 05/04/25 23:32 05:06 06:14 Hold Purple Top SEE NOTE Anion Gap 11 L Estim Creat Clear Calc 104.3 Estimated GFR > 60 POC Glucose 161 H 145 H Random Glucose 148 H Calcium 8.7 Phosphorus 4.1 Magnesium 2.0 05/04/25 08:14 Hold Purple Top Anion Gap Estim Creat Clear Calc Estimated GFR POC Glucose 140 H Random Glucose Calcium Phosphorus Magnesium Assessment and Plan (1) Alcohol withdrawal: Status: Acute (2) End stage liver disease: Status: Acute (3) Upper GI bleed: Status: Acute (4) Acute and chronic respiratory failure with hypoxia: Status: Acute (5) Pneumonia: Status: Acute Plan 64-year-old gentleman with underlying history of alcohol abuse with prior alcohol withdrawal seizures admitted on 04/16/2025 with mechanical falls and withdrawal seizures with hospital course further complicated by upper GI bleed status post EGD noted gastritis and esophageal webs status post dilation, delirium tremens with dysphagia with aspiration and hypoxic respiratory failure requiring intubation and ventilatory support on 04/21/2025, extubated on 04/28/2025. Presently with rectal tube, now tachycardia, and vomitted. Toxic encephalopathy secondary to alcohol withdrawal, and likely icu delirium. Becoming more and more lucid Tachycardia, likely from underlying illness and has been chronic, HR now wnl Acute hypoxic respiratory failure secondary to aspiration with dysphagia requiring intubation, extubated 04/28/2025. No longer on Abx, O2 98 on 1 liters, nl wbc Hyponateremia, mild and stable Upper GI bleed status post EGD on 04/19 with portal gastropathy and also esophageal web status post dilation. Has had nausea and vomiting, mild distention on exam, rectal tub in placed. CT small bowel dilatation with no transition pt, N/V stopped, surgery input, unlikely candidate for intervention. Alcoholic liver disease with chronicall elevated LFTs appear stable. 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 Prophylaxis: no heparin given GIB, but will rechallenge and closely monitor once stable Diet: TPN and NDD1 + [place] thick liquid Plan and clincal course discussed with brother over the phone out of bed to chair, PT koreyla Total time managing care of this patient today: 80 minutes. Quality Stroke Does the patient have a stroke diagnosis?: No VTE Prior VTE?: No VTE Risk Level:: Medical - moderate - high VTE Device Contraindication: N/A - Device Ordered VTE Drug Contraindication: Treatment Not Tolerated
[2025-05-04 11:44] LABS: Glucose, Whole Blood 154 mg/dL (60-115)
[2025-05-04 11:50] LABS: MANUAL DIFF FLAG NO
[2025-05-04 12:32] LABS: Hematocrit 26.3 % (42.0-52.0); Hemoglobin 8.7 g/dl (14.0-18.0); Imm Gran Abs Auto 0.08 X10*3/uL (0.00-0.03); Imm Gran Pct Auto 1.0 % (0.0-0.4); Lymphocytes Absolute Auto 1.1 X10*3/uL (1.2-4.9); Mean Corpuscular HGB Conc 33.1 g/dl (31.0-36.0); Mean Corpuscular Hemoglobin 33.6 pg (27.0-33.0); Mean Corpuscular Volume 101.5 fL (80.0-98.0); NRBC Abs Auto 0.000 X10*3/uL (0.0-0.012); NRBC Pct Auto 0.0 /100WBC (0.0-0.2); Platelet Count 107 X10*3/uL (160-400); Red Blood Count 2.59 X10*6/uL (4.60-5.80); White Blood Count 7.9 X10*3/uL (4.8-10.8)
--- NOTE | 2025-05-04 15:22 | MHC.SL.SWA ---
Speech Pathologist Impression: Risk of Aspiration, Oropharyngeal Dysphagia Dysphasia Diet Status: Restart NDD1/NTL Liquid Consistency and Strategies for Safe Swallow: Liquid Intake Recommendation: [place] Thick Liquid Intake Strategies: Small Sips No Straws Double Swallow Solid Food Consistency: Dietary Recommendations: Pureed (NDD1) Additional Modifications to Solid Foods: Patient seen for repeat swallow eval. Recommend restart PUREED diet (NDD1) and NECTAR THICK liquids, pills CRUSHED in PUREE. Patient will need direct supervision with oral intake, provide 1:1 assistance and cues throughout feeding as he has a tendency to take large sips which can lead to coughing. Cue to take smaller sips and then re-swallow, control bolus size by giving liquids by spoon when needed. Discontinue feeding if patient exhibits any s/s aspiration. Notified MD, RN, RD, & DRILLING ASSISTANT via secure text. Oral Medication Intake: Crushed with Puree Please contact the pharmacy regarding appropriate crushable or liquid drug formulations that are available whenever modified delivery is recommended. Compensatory Strategies and Precautions to be Taken for Safe Swallow: Sitting Upright (90 deg) Small Bites and Sips Alternate Liquids/Solids Rate of Ingestion Change Supervision While Eating and Drinking for Safe Swallow: Direct Supervision (1:1) Foods to Avoid: Tough, difficult to chew solids, dry crunchy textures. Swallowing Recommended Treatments: Compens. Strategy Educat. Recommendation for Speech: Inpatient Speech Therapy Frequency/Duration: Daily M-F Date Range for Service Req: Timeline to reassess: Pharmacy Stock Clerk Clinican/Clinical Fellow: No Supervisory Statement: I have reviewed and agree with the student/clinical fellow's documentation: N/A Speech Language Pathologist: Norah Munoz M.A., CCC-[employer] SALES ENGINEER
[2025-05-04 17:27] LABS: Glucose, Whole Blood 150 mg/dL (60-115)
[2025-05-04] MEDS: Parenteral Nutrition 1,920 ML 80 ML IV (21:03)
[2025-05-05] VITALS (7 sets, daily range): BP systolic 105–125; BP diastolic 58–75; PULSE 85–107; RESP 16–20; TEMP 36.3–36.9; O2SAT 95–100; BMI 26.8
[2025-05-05 00:04] LABS: Glucose, Whole Blood 151 mg/dL (60-115)
[2025-05-05 06:49] LABS: Glucose, Whole Blood 140 mg/dL (60-115)
[2025-05-05 08:01] LABS: Glucose, Whole Blood 191 mg/dL (60-115)
[2025-05-05 08:15] LABS: Anion Gap 13 (12-20); Blood Urea Nitrogen 20 mg/dL (9-16); Calcium 8.6 mg/dL (8.4-10.2); Carbon Dioxide 21 mmol/L (22-29); Chloride 104 mmol/L (96-108); Creatinine Clr Calc Pharmacy 107.5; Estimated Glomerular Filt Rate > 60; Magnesium 2.0 mg/dL (1.6-2.6); Potassium 4.1 mmol/L (3.3-5.1); Sodium 134 mmol/L (135-145)
[2025-05-05] MEDS: Furosemide 20 MG/2 ML VIAL IVPUSH ×2 (10:41→17:37)
[2025-05-05] MEDS: Thiamine HCL 100 MG in 0.9 % Sodium Chloride 100 ML 202 MG IV (10:41)
--- NOTE | 2025-05-05 11:12 | HO.PM.IMPN ---
Subjective Subjective Date of Service: 05/05/25 Interval History: He is less confused, no abd pain, no nausea or vomitting Physical Exam Vital Signs: Vital Signs: Last Vital Signs Temp 97.8 F 05/05/25 08:00 Pulse 85 05/05/25 08:00 Resp 19 05/05/25 08:00 BP 117/67 05/05/25 08:00 Pulse Ox 98 05/05/25 08:00 O2 Del Method Room Air 05/05/25 08:00 O2 Flow Rate 2 05/05/25 03:51 FiO2 35 04/28/25 12:00 BMI result Body Mass Index 26.8 Const: Other: General: Alert less confused, no acute distress Resp: CTA bilateral CVS: S1,S2,RRR GI: +BS, NT, mild distention, Skin: No rash Neuro: motor grossly intact Psych: appropriate affect Objective Data Active Medications Albuterol/Ipratropium (Albuterol/Iprat 2.5/0.5mg 3 Ml Ampul.Neb) 3 ml INHALE RQ4H WHILE AWAKE PRN PRN Reason: Wheezing Dextrose (Dextrose 50 % 25 Gm/50 Ml Syringe) 25 gm IVPUSH Q15M PRN; Protocol PRN Reason: per Hypoglycemia Standing Ord. Furosemide (Furosemide 20 Mg/2 Ml Vial) 20 mg IVPUSH BID@0900,1800 [facility]; Protocol Last Admin: 05/05/25 10:41 Dose: 20 mg Documented By: SADIQ Glucose (Glucose Gel 15 Gm Gel..Gram.) 15 gm PO Q15M PRN; Protocol PRN Reason: per Hypoglycemia Standing Ord. Heparin Sodium (Porcine) (Heparin Sodium,Porcine 5,000 Unit/Ml Vial) 5,000 unit SUBCUT BID [facility] Last Admin: 05/05/25 10:41 Dose: 5,000 unit Documented By: SADIQ Thiamine HCl 100 mg/ Sodium (Chloride) 101 mls @ 202 mls/hr IV DAILY [facility] Last Admin: 05/05/25 10:41 Dose: 202 mls/hr Documented By: SADIQ Folic Acid 1 mg/ Sodium (Chloride) 50.2 mls @ 100.4 mls/hr IV DAILY [facility] Last Infusion: 05/04/25 12:24 Dose: Infused Documented By: MARY BETH Nutrition (Parenteral) (Parenteral Nutrition) 1,920 mls @ 80 mls/hr IV .Q24H [facility]; Protocol Stop: 05/05/25 20:59 Last Admin: 05/04/25 21:03 Dose: 80 mls/hr Documented By: SHAWN Nutrition (Parenteral) (Parenteral Nutrition) 1,920 mls @ 80 mls/hr IV .Q24H [facility]; Protocol Stop: 05/06/25 20:59 Insulin Human Lispro (Insulin Lispro 100 Unit/Ml 3 Ml Vial) 0 unit SUBCUT Q6H [facility]; Protocol Last Admin: 05/05/25 07:07 Dose: Not Given Documented By: SHAWN Non-Admin Reason: No Insulin Coverage Nystatin (Nystatin Powder 15 Gm Bottle) 1 appl TOPICAL BID [facility]; Protocol Last Admin: 05/05/25 10:42 Dose: 1 appl Documented By: SADIQ Ondansetron HCl (Ondansetron Hcl 4 Mg/2 Ml Vial) 4 mg IVPUSH Q8H PRN PRN Reason: Nausea and Vomiting Pharmacy Consult (Consult Rx Parenteral Nutrition Ordering) 1 each MISCELLANE DAILY PRN PRN Reason: Consult order Sodium Chloride (0.9 % Sodium Chloride Flush 3 Ml Syringe) 3 ml IVFLUSH QSHIFT [facility] Last Admin: 05/04/25 21:04 Dose: 3 ml Documented By: SHAWN Labs 05/05/25 06:59 05/05/25 06:59 Labs: Laboratory Results - last 24 hr 05/04/25 05/04/25 05/04/25 06:14 11:33 17:25 MCV 101.5 H MCH 33.6 H MCHC 33.1 RDW 22.5 H Plt Count 107 L MPV Not Reportable Immature Gran % (Auto) 1.0 H Neut % (Auto) 66.3 Lymph % (Auto) 14.2 L [place] % (Auto) 15.1 H Eos % (Auto) 2.5 Baso % (Auto) 0.9 Lymph # (Auto) 1.1 L [place] # (Auto) 1.2 Eos # (Auto) 0.2 Baso # (Auto) 0.1 Abs Immat Gran (auto) 0.08 H Absolute Neuts (auto) 5.2 Absolute Nucleated RBC 0.000 Nucleated RBC % (auto) 0.0 Hold Purple Top Anion Gap Estim Creat Clear Calc Estimated GFR POC Glucose 154 H 150 H Random Glucose Calcium Phosphorus Magnesium 05/04/25 05/05/25 05/05/25 23:53 06:45 06:59 MCV MCH MCHC RDW Plt Count MPV Immature Gran % (Auto) Neut % (Auto) Lymph % (Auto) [place] % (Auto) Eos % (Auto) Baso % (Auto) Lymph # (Auto) [place] # (Auto) Eos # (Auto) Baso # (Auto) Abs Immat Gran (auto) Absolute Neuts (auto) Absolute Nucleated RBC Nucleated RBC % (auto) Hold Purple Top SEE NOTE Anion Gap 13 Estim Creat Clear Calc 107.5 Estimated GFR > 60 POC Glucose 151 H 140 H Random Glucose 141 H Calcium 8.6 Phosphorus 4.0 Magnesium 2.0 05/05/25 07:54 MCV MCH MCHC RDW Plt Count MPV Immature Gran % (Auto) Neut % (Auto) Lymph % (Auto) [place] % (Auto) Eos % (Auto) Baso % (Auto) Lymph # (Auto) [place] # (Auto) Eos # (Auto) Baso # (Auto) Abs Immat Gran (auto) Absolute Neuts (auto) Absolute Nucleated RBC Nucleated RBC % (auto) Hold Purple Top Anion Gap Estim Creat Clear Calc Estimated GFR POC Glucose 191 H Random Glucose Calcium Phosphorus Magnesium Assessment and Plan (1) Alcohol withdrawal: Status: Acute (2) End stage liver disease: Status: Acute (3) Upper GI bleed: Status: Acute (4) Acute and chronic respiratory failure with hypoxia: Status: Acute (5) Pneumonia: Status: Acute Plan 64-year-old gentleman with underlying history of alcohol abuse with prior alcohol withdrawal seizures admitted on 04/16/2025 with mechanical falls and withdrawal seizures with hospital course further complicated by upper GI bleed status post EGD noted gastritis and esophageal webs status post dilation, delirium tremens with dysphagia with aspiration and hypoxic respiratory failure requiring intubation and ventilatory support on 04/21/2025, extubated on 04/28/2025. Presently with rectal tube, now tachycardia, and vomitted. Toxic encephalopathy secondary to alcohol withdrawal, and likely icu delirium. Becoming more and more lucid Tachycardia, likely from underlying illness and has been chronic, HR now wnl Acute hypoxic respiratory failure secondary to aspiration with dysphagia requiring intubation, extubated 04/28/2025. No longer on Abx, O2 98 on 1 liters, nl wbc Hyponateremia, mild and stable Upper GI bleed status post EGD on 04/19 with portal gastropathy and also esophageal web status post dilation. Has had nausea and vomiting, mild distention on exam, rectal tub in placed. CT small bowel dilatation with no transition pt, N/V stopped, surgery input, unlikely candidate for intervention. Alcoholic liver disease with chronicall elevated LFTs appear stable. 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 Prophylaxis: no heparin given GIB, but will rechallenge and closely monitor once stable Diet: TPN and NDD1 + [place] thick liquid Plan and clincal course discussed with brother over the phone out of bed to chair, PT evla Total time managing care of this patient today: 80 minutes. Quality Stroke Does the patient have a stroke diagnosis?: No VTE Prior VTE?: No VTE Risk Level:: Medical - moderate - high VTE Device Contraindication: N/A - Device Ordered VTE Drug Contraindication: Treatment Not Tolerated
[2025-05-05] MEDS: 0.9 % Sodium Chloride Flush 3 ML SYRINGE IVFLUSH ×2 (11:35→17:41)
[2025-05-05 11:40] LABS: Hematocrit 25.6 % (42.0-52.0); Hemoglobin 8.1 g/dl (14.0-18.0); Imm Gran Abs Auto 0.06 X10*3/uL (0.00-0.03); Imm Gran Pct Auto 0.7 % (0.0-0.4); Lymphocytes Absolute Auto 1.5 X10*3/uL (1.2-4.9); MANUAL DIFF FLAG SCAN; Mean Corpuscular HGB Conc 31.6 g/dl (31.0-36.0); Mean Corpuscular Hemoglobin 32.9 pg (27.0-33.0); Mean Corpuscular Volume 104.1 fL (80.0-98.0); NRBC Abs Auto 0.000 X10*3/uL (0.0-0.012); NRBC Pct Auto 0.0 /100WBC (0.0-0.2); PLT CLUMP 1; Red Blood Count 2.46 X10*6/uL (4.60-5.80); SCAN SMEAR FLAG 1
[2025-05-05 11:41] LABS: White Blood Count 8.2 X10*3/uL (4.8-10.8)
[2025-05-05 12:00] LABS: Glucose, Whole Blood 167 mg/dL (60-115)
[2025-05-05 12:03] LABS: Platelet Count 111 X10*3/uL (160-400)
--- NOTE | 2025-05-05 14:14 | HO.SKINPHOTO ---
Location: Penis Category: Stage: Length: Width: Depth: cm Location: Category: Stage: Length: Width: Depth: cm Location: Category: Stage: Length: Width: Depth: cm Location: Category: Stage: Length: Width: Depth: cm Location: Category: Stage: Length: Width: Depth: cm Location: Category: Stage: Length: Width: Depth: cm
[2025-05-05 17:21] LABS: Glucose, Whole Blood 152 mg/dL (60-115)
[2025-05-05 20:36] LABS: Glucose, Whole Blood 175 mg/dL (60-115)
[2025-05-05] MEDS: Parenteral Nutrition 1,920 ML 80 ML IV (21:31)
[2025-05-06 00:11] LABS: Glucose, Whole Blood 155 mg/dL (60-115)
[2025-05-06 03:18] VITALS: BP 110/55; PULSE 91; RESP 16; TEMP 36.3; O2SAT 98
[2025-05-06 04:45] LABS: Anion Gap 13 (12-20); Blood Urea Nitrogen 20 mg/dL (9-16); Calcium 8.4 mg/dL (8.4-10.2); Carbon Dioxide 21 mmol/L (22-29); Chloride 103 mmol/L (96-108); Creatinine Clr Calc Pharmacy 105.9; Estimated Glomerular Filt Rate > 60; Magnesium 1.8 mg/dL (1.6-2.6); Potassium 3.9 mmol/L (3.3-5.1); Sodium 133 mmol/L (135-145)
[2025-05-06 05:45] VITALS: BMI 26.2
[2025-05-06 05:46] LABS: Glucose, Whole Blood 152 mg/dL (60-115)
[2025-05-06 07:14] VITALS: BP 112/65; PULSE 101; RESP 16; TEMP 37; O2SAT 97
[2025-05-06] MEDS: Furosemide 20 MG/2 ML VIAL IVPUSH ×2 (08:13→17:14)
[2025-05-06] MEDS: 0.9 % Sodium Chloride Flush 3 ML SYRINGE IVFLUSH ×3 (08:20→21:11)
[2025-05-06] MEDS: Thiamine HCL 100 MG in 0.9 % Sodium Chloride 100 ML 202 MG IV (08:57)
--- NOTE | 2025-05-06 10:07 | P.PNIM_ITS ---
Subjective Subjective Date of Service: 05/06/25 Interval History: Has some confusion had some vomiting last night and made NPO Physical Exam 2 Vital Signs: Vital Signs: Last Vital Signs Temp 98.6 F 05/06/25 07:14 Pulse 101 H 05/06/25 07:14 Resp 16 05/06/25 07:14 BP 112/65 05/06/25 07:14 Pulse Ox 97 05/06/25 07:14 O2 Del Method Room Air 05/06/25 07:14 O2 Flow Rate 1 05/06/25 03:18 FiO2 35 04/28/25 12:00 BMI result Body Mass Index 26.2 Const: Other: General: Alert less confused, no acute distress Resp: CTA bilateral CVS: S1,S2,RRR GI: +BS, NT, mild distention, Skin: No rash Neuro: motor grossly intact Psych: appropriate affect Objective Data Active Medications Dextrose (Dextrose 50 % 25 Gm/50 Ml Syringe) 25 gm IVPUSH Q15M PRN; Protocol PRN Reason: per Hypoglycemia Standing Ord. Furosemide (Furosemide 20 Mg/2 Ml Vial) 20 mg IVPUSH BID@0900,1800 [facility]; Protocol Last Admin: 05/06/25 08:13 Dose: 20 mg Documented By: LILIANA Glucose (Glucose Gel 15 Gm Gel..Gram.) 15 gm PO Q15M PRN; Protocol PRN Reason: per Hypoglycemia Standing Ord. Heparin Sodium (Porcine) (Heparin Sodium,Porcine 5,000 Unit/Ml Vial) 5,000 unit SUBCUT BID [facility] Last Admin: 05/06/25 08:13 Dose: 5,000 unit Documented By: LILIANA Thiamine HCl 100 mg/ Sodium (Chloride) 101 mls @ 202 mls/hr IV DAILY [facility] Last Admin: 05/06/25 08:57 Dose: 202 mls/hr Documented By: LILIANA Folic Acid 1 mg/ Sodium (Chloride) 50.2 mls @ 100.4 mls/hr IV DAILY [facility] Last Infusion: 05/06/25 09:02 Dose: Infused Documented By: LILIANA Nutrition (Parenteral) (Parenteral Nutrition) 1,920 mls @ 80 mls/hr IV .Q24H [facility]; Protocol Stop: 05/06/25 20:59 Last Admin: 05/05/25 21:31 Dose: 80 mls/hr Documented By: MARLON Nutrition (Parenteral) (Parenteral Nutrition) 1,920 mls @ 80 mls/hr IV .Q24H [facility]; Protocol Stop: 05/07/25 20:59 Insulin Human Lispro (Insulin Lispro 100 Unit/Ml 3 Ml Vial) 0 unit SUBCUT Q6H [facility]; Protocol Last Admin: 05/06/25 05:43 Dose: Not Given Documented By: MARLON Non-Admin Reason: No Insulin Coverage Nystatin (Nystatin Powder 15 Gm Bottle) 1 appl TOPICAL BID [facility]; Protocol Last Admin: 05/05/25 20:13 Dose: Not Given Documented By: MARLON Non-Admin Reason: Med Not Available Ondansetron HCl (Ondansetron Hcl 4 Mg/2 Ml Vial) 4 mg IVPUSH Q8H PRN PRN Reason: Nausea and Vomiting Last Admin: 05/05/25 17:38 Dose: 4 mg Documented By: LILIANA Pharmacy Consult (Consult Rx Parenteral Nutrition Ordering) 1 each MISCELLANE DAILY PRN PRN Reason: Consult order Sodium Chloride (0.9 % Sodium Chloride Flush 3 Ml Syringe) 3 ml IVFLUSH QSHIFT [facility] Last Admin: 05/06/25 08:20 Dose: 3 ml Documented By: LILIANA Labs 05/05/25 06:59 05/06/25 03:49 Labs: Laboratory Results - last 24 hr 05/05/25 05/05/25 05/05/25 06:59 11:56 17:17 MCV 104.1 H MCH 32.9 MCHC 31.6 RDW 22.8 H Plt Count 111 L MPV 12.8 H Immature Gran % (Auto) 0.7 H Neut % (Auto) 62.4 Lymph % (Auto) 17.6 L [place] % (Auto) 16.0 H Eos % (Auto) 2.8 Baso % (Auto) 0.5 Lymph # (Auto) 1.5 [place] # (Auto) 1.3 H Eos # (Auto) 0.2 Baso # (Auto) 0.0 Abs Immat Gran (auto) 0.06 H Absolute Neuts (auto) 5.1 Absolute Nucleated RBC 0.000 Nucleated RBC % (auto) 0.0 Smear Tech's Comments VERIFIED Anion Gap Estim Creat Clear Calc Estimated GFR POC Glucose 167 H 152 H Random Glucose Calcium Phosphorus Magnesium 05/05/25 05/05/25 05/06/25 20:31 23:47 03:49 MCV MCH MCHC RDW Plt Count MPV Immature Gran % (Auto) Neut % (Auto) Lymph % (Auto) [place] % (Auto) Eos % (Auto) Baso % (Auto) Lymph # (Auto) [place] # (Auto) Eos # (Auto) Baso # (Auto) Abs Immat Gran (auto) Absolute Neuts (auto) Absolute Nucleated RBC Nucleated RBC % (auto) Smear Tech's Comments Anion Gap 13 Estim Creat Clear Calc 105.9 Estimated GFR > 60 POC Glucose 175 H 155 H Random Glucose 146 H Calcium 8.4 Phosphorus 4.2 Magnesium 1.8 05/06/25 05:40 MCV MCH MCHC RDW Plt Count MPV Immature Gran % (Auto) Neut % (Auto) Lymph % (Auto) [place] % (Auto) Eos % (Auto) Baso % (Auto) Lymph # (Auto) [place] # (Auto) Eos # (Auto) Baso # (Auto) Abs Immat Gran (auto) Absolute Neuts (auto) Absolute Nucleated RBC Nucleated RBC % (auto) Smear Tech's Comments Anion Gap Estim Creat Clear Calc Estimated GFR POC Glucose 152 H Random Glucose Calcium Phosphorus Magnesium Assessment and Plan (1) Alcohol withdrawal: Status: Acute (2) End stage liver disease: Status: Acute (3) Upper GI bleed: Status: Acute (4) Acute and chronic respiratory failure with hypoxia: Status: Acute (5) Pneumonia: Status: Acute Plan 64-year-old gentleman with underlying history of alcohol abuse with prior alcohol withdrawal seizures admitted on 04/16/2025 with mechanical falls and withdrawal seizures with hospital course further complicated by upper GI bleed status post EGD noted gastritis and esophageal webs status post dilation, delirium tremens with dysphagia with aspiration and hypoxic respiratory failure requiring intubation and ventilatory support on 04/21/2025, extubated on 04/28/2025. Presently with rectal tube, now tachycardia, and vomitted. Toxic metabolic encephalopathy secondary to alcohol withdrawal, and likely icu delirium. Becoming more and more lucid Tachycardia, likely from underlying illness and has been chronic, HR now wnl Acute hypoxic respiratory failure secondary to aspiration with dysphagia requiring intubation, extubated 04/28/2025. No longer on Abx, O2 98 on 1 liters, nl wbc HypOnateremia, mild and stable Upper GI bleed status post EGD on 04/19 with portal gastropathy and also esophageal web status post dilation. Has had nausea and vomiting, mild distention on exam, rectal tub in placed. CT small bowel dilatation with no transition pt, N/V stopped, surgery input, unlikely candidate for intervention. Alcoholic liver disease with chronicall elevated LFTs appear stable. Presently no gi complaint, NPO but starting diet per GRANTS ASSISTANT recommendation with NDD1 and [place] thick liquid. 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 Prophylaxis: no heparin given GIB, but will rechallenge and closely monitor once stable Diet: TPN and NDD1 + [place] thick liquid, but NPO for now Plan and clincal course discussed with brother over the phone out of bed to chair, PT evla Total time managing care of this patient today: 80 minutes. Quality Stroke Does the patient have a stroke diagnosis?: No VTE Prior VTE?: No VTE Risk Level:: Medical - moderate - high VTE Device Contraindication: N/A - Device Ordered VTE Drug Contraindication: Treatment Not Tolerated
[2025-05-06 11:09] LABS: NRBC Abs Auto 0.000 X10*3/uL (0.0-0.012); NRBC Pct Auto 0.0 /100WBC (0.0-0.2)
[2025-05-06 11:11] LABS: Hematocrit 26.2 % (42.0-52.0); Hemoglobin 8.7 g/dl (14.0-18.0); Mean Corpuscular HGB Conc 33.2 g/dl (31.0-36.0); Mean Corpuscular Hemoglobin 34.0 pg (27.0-33.0); Mean Corpuscular Volume 102.3 fL (80.0-98.0); Platelet Count 123 X10*3/uL (160-400); Red Blood Count 2.56 X10*6/uL (4.60-5.80)
[2025-05-06 11:16] LABS: PLT ABN DIST 1; WBC ABN SCTR FOR CBC 1; White Blood Count 9.0 X10*3/uL (4.8-10.8)
[2025-05-06 11:26] LABS: Glucose, Whole Blood 137 mg/dL (60-115)
[2025-05-06 11:28] VITALS: BP 113/71; PULSE 96; RESP 18; TEMP 36.7; O2SAT 97
[2025-05-06 15:51] VITALS: BP 106/62; PULSE 98; RESP 18; TEMP 36.7; O2SAT 98
[2025-05-06 17:14] VITALS: BP 99/68
[2025-05-06 17:26] LABS: Glucose, Whole Blood 166 mg/dL (60-115)
[2025-05-06 20:00] VITALS: BP 124/70; PULSE 91; RESP 18; TEMP 36.4; O2SAT 97
[2025-05-06] MEDS: diazePAM 10 MG/2 ML CARTRIDGE 5 MG IVPUSH (20:18)
[2025-05-06] MEDS: Parenteral Nutrition 1,920 ML 80 ML IV (21:10)
[2025-05-07] VITALS (10 sets, daily range): BP systolic 101–131; BP diastolic 50–74; PULSE 89–114; RESP 17–18; TEMP 36.3–36.9; O2SAT 93–98
[2025-05-07 00:18] LABS: Glucose, Whole Blood 151 mg/dL (60-115)
--- NOTE | 2025-05-07 02:45 | PC.NURSE ---
pt impulsive at times, throwing legs over railing, verbally abusive when he does not getting what he wants, constantly asking for water, while NPO, with TPN running. Pt Unable to comprehend the reasoning for not being able to drink water, multiple explanations have been given.
[2025-05-07 03:54] LABS: Hematocrit 28.0 % (42.0-52.0); Hemoglobin 9.0 g/dl (14.0-18.0); Mean Corpuscular HGB Conc 32.1 g/dl (31.0-36.0); Mean Corpuscular Hemoglobin 33.6 pg (27.0-33.0); Mean Corpuscular Volume 104.5 fL (80.0-98.0); NRBC Abs Auto 0.000 X10*3/uL (0.0-0.012); NRBC Pct Auto 0.0 /100WBC (0.0-0.2); Platelet Count 123 X10*3/uL (160-400); Red Blood Count 2.68 X10*6/uL (4.60-5.80)
[2025-05-07 03:56] LABS: WBC ABN SCTR FOR CBC 1
[2025-05-07 03:59] LABS: INTERNATIONAL NORM RATIO 1.4 (0.9-1.1); Prothrombin Time 16.6 SEC (11.2-13.5)
[2025-05-07 04:07] LABS: Anion Gap 15 (12-20); Blood Urea Nitrogen 21 mg/dL (9-16); Calcium 8.9 mg/dL (8.4-10.2); Carbon Dioxide 20 mmol/L (22-29); Chloride 104 mmol/L (96-108); Creatinine Clr Calc Pharmacy 102.7; Estimated Glomerular Filt Rate > 60; Magnesium 1.9 mg/dL (1.6-2.6); Potassium 3.9 mmol/L (3.3-5.1); Sodium 135 mmol/L (135-145)
[2025-05-07 04:24] LABS: Band Neutrophils Percent 1 % (3-5); Eosinophils Percent Manual 2 % (0-4); Lymphocytes Percent Manual 10 % (20-40); Metamyelocytes Percent 1 %; Monocytes Percent Manual 10 % (2-11); Neutrophils Percent Manual 75 % (45-73); Promyelocytes Percent 1 %
[2025-05-07 04:25] LABS: Large Platelet PRESENT; Macrocytosis 2+ (15-30) /OIF; Microcytosis 1+ (5-14) /OIF; RBC Morphology NOTED
[2025-05-07 04:26] LABS: Target Cells 1+ (5-14) /OIF; Tear Drop Cells 2+ (3-5) /OIF
[2025-05-07 04:27] LABS: Eosinophils Absolute Manual 0.2 X10*3/uL (0.0-0.4); Lymphocytes Absolute Manual 0.9 X10*3/uL (1.2-4.9); Metamyelocytes Absolute 0.1 X10*3/uL; Monocytes Absolute Manual 0.9 X10*3/uL (0.1-1.2); Polychromasia 2+ (3-5) /OIF; Promyelocytes Absolute 0.1 X10*3/uL; Toxic Granulation PRESENT; Toxic Vacuolation PRESENT
[2025-05-07 04:28] LABS: Neutrophils Absolute Manual 6.8 X10*3/uL (2.0-8.3); White Blood Count 8.9 X10*3/uL (4.8-10.8)
[2025-05-07 06:19] LABS: Glucose, Whole Blood 142 mg/dL (60-115)
--- NOTE | 2025-05-07 08:48 | HO.PM.IMPN ---
Subjective Subjective Date of Service: 05/07/25 Interval History: Remains confused, no agiataion this morning and no further vomiting reported H/H stable Physical Exam Vital Signs: Vital Signs: Last Vital Signs Temp 98.2 F 05/07/25 08:00 Pulse 92 05/07/25 08:00 Resp 17 05/07/25 08:00 BP 115/68 05/07/25 08:00 Pulse Ox 94 05/07/25 08:00 O2 Del Method Room Air 05/07/25 08:00 O2 Flow Rate 1 05/06/25 03:18 FiO2 35 04/28/25 12:00 BMI result Body Mass Index 26.2 Const: Other: General: Alert less confused, no acute distress Resp: CTA bilateral CVS: S1,S2,RRR GI: +BS, NT, mild distention, Skin: No rash Neuro: motor grossly intact Psych: appropriate affect Objective Data Active Medications Dextrose (Dextrose 50 % 25 Gm/50 Ml Syringe) 25 gm IVPUSH Q15M PRN; Protocol PRN Reason: per Hypoglycemia Standing Ord. Furosemide (Furosemide 20 Mg/2 Ml Vial) 20 mg IVPUSH BID@0900,1800 [facility]; Protocol Last Admin: 05/06/25 17:14 Dose: 20 mg Documented By: JENNA Glucose (Glucose Gel 15 Gm Gel..Gram.) 15 gm PO Q15M PRN; Protocol PRN Reason: per Hypoglycemia Standing Ord. Heparin Sodium (Porcine) (Heparin Sodium,Porcine 5,000 Unit/Ml Vial) 5,000 unit SUBCUT BID [facility] On Hold: 05/06/25 10:10 Last Admin: 05/06/25 08:13 Dose: 5,000 unit Documented By: LILIANA Thiamine HCl 100 mg/ Sodium (Chloride) 101 mls @ 202 mls/hr IV DAILY [facility] Last Infusion: 05/06/25 10:08 Dose: Infused Documented By: LILIANA Folic Acid 1 mg/ Sodium (Chloride) 50.2 mls @ 100.4 mls/hr IV DAILY [facility] Last Infusion: 05/06/25 09:02 Dose: Infused Documented By: LILIANA Nutrition (Parenteral) (Parenteral Nutrition) 1,920 mls @ 80 mls/hr IV .Q24H [facility]; Protocol Stop: 05/07/25 20:59 Last Admin: 05/06/25 21:10 Dose: 80 mls/hr Documented By: HAILEE Insulin Human Lispro (Insulin Lispro 100 Unit/Ml 3 Ml Vial) 0 unit SUBCUT Q6H [facility]; Protocol Last Admin: 05/07/25 06:42 Dose: Not Given Documented By: HAILEE Non-Admin Reason: No Insulin Coverage Nystatin (Nystatin Powder 15 Gm Bottle) 1 appl TOPICAL BID [facility]; Protocol Last Admin: 05/06/25 21:11 Dose: Not Given Documented By: HAILEE Non-Admin Reason: Med Not Available Ondansetron HCl (Ondansetron Hcl 4 Mg/2 Ml Vial) 4 mg IVPUSH Q8H PRN PRN Reason: Nausea and Vomiting Last Admin: 05/05/25 17:38 Dose: 4 mg Documented By: LILIANA Pharmacy Consult (Consult Rx Parenteral Nutrition Ordering) 1 each MISCELLANE DAILY PRN PRN Reason: Consult order Sodium Chloride (0.9 % Sodium Chloride Flush 3 Ml Syringe) 3 ml IVFLUSH QSHIFT [facility] Last Admin: 05/06/25 21:11 Dose: 3 ml Documented By: HAILEE Labs 05/07/25 03:33 05/07/25 03:33 Labs: Laboratory Results - last 24 hr 05/06/25 05/06/25 05/06/25 10:37 11:13 17:21 MCV 102.3 H MCH 34.0 H MCHC 33.2 RDW 22.6 H Plt Count 123 L MPV 12.8 H Immature Gran % (Auto) Neut % (Auto) Lymph % (Auto) [place] % (Auto) Eos % (Auto) Baso % (Auto) Lymph # (Auto) [place] # (Auto) Eos # (Auto) Baso # (Auto) Abs Immat Gran (auto) Absolute Neuts (auto) Absolute Nucleated RBC 0.000 Nucleated RBC % (auto) 0.0 Neutrophils % (Manual) Band Neutrophils % Lymphocytes % (Manual) Monocytes % (Manual) Eosinophils % (Manual) Metamyelocytes % Promyelocytes % Abs Neuts (Manual) Lymphocytes # (Manual) Monocytes # (Manual) Eosinophils # (Manual) Metamyelocytes # Promyelocytes # Toxic Granulation Toxic Vacuolation Platelet Estimate Large Platelets Plt Morphology Comment RBC Morphology Polychromasia Microcytosis Macrocytosis Target Cells Tear Drop Cells PT INR Anion Gap Estim Creat Clear Calc Estimated GFR POC Glucose 137 H 166 H Random Glucose Calcium Phosphorus Magnesium 05/07/25 05/07/25 05/07/25 00:14 03:33 06:15 MCV 104.5 H MCH 33.6 H MCHC 32.1 RDW 22.5 H Plt Count 123 L MPV 12.9 H Immature Gran % (Auto) Cancelled Neut % (Auto) Cancelled Lymph % (Auto) Cancelled [place] % (Auto) Cancelled Eos % (Auto) Cancelled Baso % (Auto) Cancelled Lymph # (Auto) Cancelled [place] # (Auto) Cancelled Eos # (Auto) Cancelled Baso # (Auto) Cancelled Abs Immat Gran (auto) Cancelled Absolute Neuts (auto) Cancelled Absolute Nucleated RBC 0.000 Nucleated RBC % (auto) 0.0 Neutrophils % (Manual) 75 H Band Neutrophils % 1 L Lymphocytes % (Manual) 10 L Monocytes % (Manual) 10 Eosinophils % (Manual) 2 Metamyelocytes % 1 Promyelocytes % 1 Abs Neuts (Manual) 6.8 Lymphocytes # (Manual) 0.9 L Monocytes # (Manual) 0.9 Eosinophils # (Manual) 0.2 Metamyelocytes # 0.1 Promyelocytes # 0.1 Toxic Granulation PRESENT Toxic Vacuolation PRESENT Platelet Estimate NORMAL Large Platelets PRESENT Plt Morphology Comment NOTED RBC Morphology NOTED Polychromasia 2+ (3-5) Microcytosis 1+ (5-14) Macrocytosis 2+ (15-30) Target Cells 1+ (5-14) Tear Drop Cells 2+ (3-5) PT 16.6 H INR 1.4 H Anion Gap 15 Estim Creat Clear Calc 102.7 Estimated GFR > 60 POC Glucose 151 H 142 H Random Glucose 154 H Calcium 8.9 Phosphorus 4.3 Magnesium 1.9 Assessment and Plan (1) Alcohol withdrawal: Status: Acute (2) End stage liver disease: Status: Acute (3) Upper GI bleed: Status: Acute (4) Acute and chronic respiratory failure with hypoxia: Status: Acute (5) Pneumonia: Status: Acute Plan 64-year-old gentleman with underlying history of alcohol abuse with prior alcohol withdrawal seizures admitted on 04/16/2025 with mechanical falls and withdrawal seizures with hospital course further complicated by upper GI bleed status post EGD noted gastritis and esophageal webs status post dilation, delirium tremens with dysphagia with aspiration and hypoxic respiratory failure requiring intubation and ventilatory support on 04/21/2025, extubated on 04/28/2025. Presently with rectal tube, now tachycardia, and vomitted. Toxic metabolic encephalopathy secondary to alcohol withdrawal, and likely icu delirium. Becoming more and more lucid but slowly Tachycardia, likely from underlying illness and has been chronic, HR now wnl Acute hypoxic respiratory failure secondary to aspiration with dysphagia requiring intubation, extubated 04/28/2025. No longer on abx, and on room air HypOnateremia, mild and resolved Upper GIB, Acute blood loss anemia, status post EGD on 04/19 with portal gastropathy and also esophageal web status post dilation. Has had nausea and vomiting, mild distention on exam, rectal tub in placed. CT small bowel dilatation with no transition pt, N/V stopped, surgery input, unlikely candidate for intervention. Alcoholic liver disease with chronicall elevated LFTs appear stable. 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 Prophylaxis:Heparin restarted but has to be stopped again due to concern for bleeding has had some old blood around his mouth Diet: TPN and NDD1 + [place] thick liquid, but NPO for now Plan and clincal course discussed with brother over the phone out of bed to chair, PT evla Ultimately need to be transition to SNF Total time managing care of this patient today: 80 minutes. Quality Stroke Does the patient have a stroke diagnosis?: No VTE Prior VTE?: No VTE Risk Level:: Medical - moderate - high VTE Device Contraindication: N/A - Device Ordered VTE Drug Contraindication: Treatment Not Tolerated
[2025-05-07] MEDS: Thiamine HCL 100 MG in 0.9 % Sodium Chloride 100 ML 202 MG IV (09:14)
[2025-05-07] MEDS: Furosemide 20 MG/2 ML VIAL IVPUSH (09:19)
[2025-05-07] MEDS: 0.9 % Sodium Chloride Flush 3 ML SYRINGE IVFLUSH ×3 (09:22→22:08)
--- NOTE | 2025-05-07 09:59 | MHC.CLN ---
F/U CONTINUES NPO WITH NUTRITION/HYDRATION VIA PPN. REVIEWED LABS. COMMUNICATED WITH PHARMACY. CONTINUE PPN AT 80ML PER HOUR WITH 97G LIPIDS PROVIDES 1949 KCALS (25.6KCALS/KG), 82G PROTEIN (1.08G/KG), 192G DEXTROSE. REPLETE LYTES NEEDED. FOLLOW FOR PPN TOLERANCE, DIET ADVANCEMENT AND PLAN OF CARE.
--- NOTE | 2025-05-07 12:10 | HO.WOUND ---
Wound Consult: follow up 64 yr old male admitted to [facility] [place] on [place]16/25 - See progress notes and H&P for detailed history. Wound team following for IAD to buttocks/perineum- direct care RN with concerns for worsening area to buttocks/perineum. Patient agreeable to assessment. Area is mildly advancing with scattered superficial areas of skin loss continues with evidence of fungal dermatitis. Chart review reveals Nystatin has not been in use for a few days unclear as to reason. Direct care nurse to obtain new Nystatin powder for bedside use. Concern also voiced for increase and evolving mouth sores. TT to Dr. Jose for assessment. Unclear etiolgy - provider to assess for atypical thrush and or ID for assessment for unknown etiology. Tongue Lips Unclear etiology - provider to assess for thrush and or systemic treatment. Provider to consider ID consult for etiology. Central tongue area with dried scabbed wound bed - palate noted for buildup unclear if wound bed or dried drainage. Swelling and redness noted to tongue. Lips noted for ulceration with slough / moist scabs noted. Pain and tenderness reported. Patient was to work with Speech Language Pathologist after my assessment. At this time defer Etiology, recommendations and further treatment to providers. Penis assessed for MASD - The patient has frequent incontinence - recommend condom cath at this time - no open wounds noted to penis and shaft at this time. Cleansed off triad for proper application - proper anatomy for condom cath and not appropriate from Male Purewick due to skin integrity to the area adhesive wound be applied. 05/01/25 05/03/25 Right groin 05/03/25 05/03/25 left groin Etiology: MASD/IAD Wound Bed: moist red some satellite lesions noted to left groin Drainage / Odor: none Janet wound: ? No Induration, Fluctuance or Warmth noted Pain: Goals of Treatment: ? moisture barrier Recommendations: 1. Turn and Reposition every 2 hours and as needed for patient comfort. Use pillows or wedges to support off loading positions. 2. Off Load all bony prominences with use of pillows and heel boots if needed. Apply Preventative foams where needed. 3. Monitor for incontinence and moisture control, use barrier creams when needed for prevention and treatment. 4. Provide adequate and supplemental nutrition. 5. Order or Continue low air loss mattress. 6. When applicable maintain blood glucose levels per Providers order. Buttock/coccyx: Off Load Pressure with Q2 hr turns and use of pillows - Cleanse with PH balance spray or wipes, pat dry. ?Apply antifungal power to assist with moisture management.? Be sure to dust of excess powder to prevent caking on skin and in folds. Apply per provider orders. Apply thin layer of Triad to wound bed. Do not remove all of paste between applications as this may cause further skin damage.? Bilateral heels: Elevate heels off bed with pillows and preventative foam dressing in place, peel back and assess Q shift and change every 5-7 days and PRN. Lips: routine mouth care with oral moisturizer - Defer to providers for treatment plan. Re-consult wound care Nurse for wound deterioration or wound changes.
[2025-05-07 12:42] LABS: Glucose, Whole Blood 179 mg/dL (60-115)
--- NOTE | 2025-05-07 15:26 | MHC.CM.PN ---
EMR REVIEWED AND PER MD ROUNDS, PT IS NOT YET MEDICALLY CLEARED FOR DC ( SOME AGITATION, PPN) CM WILL CONTINUE TO FOLLOW FOR PLAN. PER P.T., PT WILL NEED STR ON DC. CM WILL CONTINUE TO FOLLOW FOR PLAN/NEEDS.
[2025-05-07 16:05] LABS: Glucose, Whole Blood 152 mg/dL (60-115)
--- NOTE | 2025-05-07 16:12 | MHC.SL.SWA ---
Speech Pathologist Impression: Risk of Aspiration, Oropharyngeal Dysphagia Dysphasia Diet Status: Recommend restart PUREED diet (NDD1) and NECTAR THICK liquids, pills CRUSHED in PUREE. MBSS tenatively scheduled for tomorrow AM. Liquid Consistency and Strategies for Safe Swallow: Liquid Intake Recommendation: [place] Thick Liquid Intake Strategies: Small Sips No Straws Double Swallow Solid Food Consistency: Dietary Recommendations: Pureed (NDD1) Additional Modifications to Solid Foods: Patient seen for repeat swallow eval. Recommend restart PUREED diet (NDD1) and NECTAR THICK liquids, pills CRUSHED in PUREE. Patient will need direct supervision with oral intake, provide 1:1 assistance and cues throughout feeding as he has a tendency to take large sips which can lead to coughing. Cue to take smaller sips and then re-swallow, control bolus size by giving liquids by spoon when needed. Discontinue feeding if patient exhibits any s/s aspiration. Notified MD, RN, and RD via secure text. Oral Medication Intake: Crushed with Puree Please contact the pharmacy regarding appropriate crushable or liquid drug formulations that are available whenever modified delivery is recommended. Compensatory Strategies and Precautions to be Taken for Safe Swallow: Sitting Upright (90 deg) Small Bites and Sips Alternate Liquids/Solids Rate of Ingestion Change Supervision While Eating and Drinking for Safe Swallow: Direct Supervision (1:1) Foods to Avoid: Tough, difficult to chew solids, dry crunchy textures. Swallowing Recommended Treatments: Compens. Strategy Educat. Recommendation for Speech: Inpatient Speech Therapy Comment: Patient seen for dysphagia tx/re-eval this morning, per MD, ok to proceed. Patient with episode of emesis again over the weekend prompting MD to change to NPO. Patient being seen by Wound RN prior to HULL INSPECTOR; noted thrush/ulcer/wound/scab on central tongue and dried blood/scabbing around lips. Oral care of wet swab provided prior to PO trials as tongue and lips noted to be very dry. Patient reporting some pain with direct contact of swab to wounds/scabs. Patient reporting no pain with swallowing; noted increase agitation when asked multiple times. Patient given single ice cubes (as continuously asking RN and HULL INSPECTOR as soon as entering room), as well spoon of water x2 and small, controlled cup sip x1. Patient with changes in voice and coughing (immediate after cup sip, delayed after ice/spoon). Patient then given NTL cranberry juice; unable to take small sip when cued, HULL INSPECTOR having to tip back cup to control. Patient with no cough, but mild voice changes noted. Voice changes able to reduce with cued throat clear/re-swallow. Patient also given pudding via spoon x4, no coughing noted after completion or delay. Recommend RESTART diet of NDD1 (pureed), NECTAR THICK Liquids. Recommend MBSS to further evaluate as patient with fluctuating tolerance and s/sx of penetration/aspiration at bedside. MD to order MBSS, could tentatively be scheduled for tomorrow AM. Diet and MBSS recommendations communicated to RN, MD, and RD via secure chat. Frequency/Duration: Daily M-F Date Range for Service Req: Timeline to reassess: Kennel Aide Clinican/Clinical Fellow: No Supervisory Statement: I have reviewed and agree with the student/clinical fellow's documentation: N/A Speech Language Pathologist: Sultana Givens M.A., CCC-HULL INSPECTOR
--- NOTE | 2025-05-07 16:45 | MHC.SLORD ---
Speech Language Pathology Order Status: MBSS is scheduled for tomorrow 05/08 at 9:30m. Radiology to arrange for transport.
--- NOTE | 2025-05-07 17:15 | PC.NURSE ---
MD Jose made aware via tiger text pt continues to have elevated HR this shift, no new orders at this time. IVP lasix switched to PO.
[2025-05-07] MEDS: Parenteral Nutrition 1,920 ML 80 ML IV (22:08)
[2025-05-08 02:57] VITALS: BP 108/53; PULSE 103; RESP 18; TEMP 36.6; O2SAT 94
[2025-05-08 06:00] VITALS: BMI 26.2
[2025-05-08 06:30] LABS: Glucose, Whole Blood 142 mg/dL (60-115)
[2025-05-08 06:35] LABS: Anion Gap 13 (12-20); Blood Urea Nitrogen 21 mg/dL (9-16); Calcium 8.7 mg/dL (8.4-10.2); Carbon Dioxide 21 mmol/L (22-29); Chloride 105 mmol/L (96-108); Creatinine Clr Calc Pharmacy 109.2; Estimated Glomerular Filt Rate > 60; Magnesium 1.8 mg/dL (1.6-2.6); Potassium 3.8 mmol/L (3.3-5.1); Sodium 135 mmol/L (135-145); Triglycerides 175 mg/dL (<150)
[2025-05-08 07:33] VITALS: BP 118/72; PULSE 99; RESP 16; TEMP 37.1; O2SAT 93
[2025-05-08] MEDS: Thiamine HCL 100 MG in 0.9 % Sodium Chloride 100 ML 202 MG IV (07:42)
[2025-05-08] MEDS: 0.9 % Sodium Chloride Flush 3 ML SYRINGE IVFLUSH ×2 (07:44→22:32)
--- NOTE | 2025-05-08 09:31 | MHC.CLN ---
F/U PT CURRENTLY NPO NOTED MBS SCHEDULED FOR TODAY REVIEWED LABS DISCUSSED WITH PHARMACY CONTINUE PPN AT 80ML PER HOUR WITH 97G LIPIDS PROVIDES 1949 KCALS (25KCALS/KG), 82G PROTEIN (1.07G/KG), 192G DEXTROSE REPLETE LYTES NEEDED
--- NOTE | 2025-05-08 09:48 | P.PNIM_ITS ---
Subjective Subjective Date of Service: 05/08/25 Interval History: Remains with some confusion no agiation, no sob, no n/v Physical Exam 2 Vital Signs: Vital Signs: Last Vital Signs Temp 98.8 F 05/08/25 07:33 Pulse 99 05/08/25 07:33 Resp 16 05/08/25 07:33 BP 118/72 05/08/25 07:33 Pulse Ox 93 05/08/25 07:33 O2 Del Method Room Air 05/08/25 07:33 O2 Flow Rate 1 05/06/25 03:18 FiO2 35 04/28/25 12:00 BMI result Body Mass Index 26.2 Const: Other: General: Alert less confused, no acute distress HEENT-has a laceration of the tongue,apear old and may have bled in the past Resp: CTA bilateral CVS: S1,S2,RRR GI: +BS, NT, mild distention, Skin: No rash Neuro: motor grossly intact Psych: appropriate affect Objective Data Active Medications Dextrose (Dextrose 50 % 25 Gm/50 Ml Syringe) 25 gm IVPUSH Q15M PRN; Protocol PRN Reason: per Hypoglycemia Standing Ord. Furosemide (Furosemide 20 Mg Tablet) 20 mg PO BID@0900,1800 DAMIÁN; Protocol Last Admin: 05/08/25 07:44 Dose: Not Given Documented By: MAC Non-Admin Reason: NPO Glucose (Glucose Gel 15 Gm Gel..Gram.) 15 gm PO Q15M PRN; Protocol PRN Reason: per Hypoglycemia Standing Ord. Heparin Sodium (Porcine) (Heparin Sodium,Porcine 5,000 Unit/Ml Vial) 5,000 unit SUBCUT BID DAMIÁN On Hold: 05/06/25 10:10 Last Admin: 05/06/25 08:13 Dose: 5,000 unit Documented By: LILIANA Thiamine HCl 100 mg/ Sodium (Chloride) 101 mls @ 202 mls/hr IV DAILY DAMIÁN Last Infusion: 05/08/25 08:27 Dose: Infused Documented By: MAC Folic Acid 1 mg/ Sodium (Chloride) 50.2 mls @ 100.4 mls/hr IV DAILY DAMIÁN Last Infusion: 05/07/25 11:00 Dose: Infused Documented By: MAC Nutrition (Parenteral) (Parenteral Nutrition) 1,920 mls @ 80 mls/hr IV .Q24H DAMIÁN; Protocol Stop: 05/08/25 20:59 Last Infusion: 05/08/25 02:06 Dose: 80 mls/hr Documented By: CHARLES Nutrition (Parenteral) (Parenteral Nutrition) 1,920 mls @ 80 mls/hr IV .Q24H DAMIÁN; Protocol Stop: 05/09/25 20:59 Insulin Human Lispro (Insulin Lispro 100 Unit/Ml 3 Ml Vial) 0 unit SUBCUT Q6H DAMIÁN; Protocol Last Admin: 05/08/25 06:31 Dose: Not Given Documented By: CHARLES Non-Admin Reason: No Insulin Coverage Nystatin (Nystatin Powder 15 Gm Bottle) 1 appl TOPICAL BID DAMIÁN; Protocol Last Admin: 05/08/25 07:44 Dose: 1 appl Documented By: MAC Ondansetron HCl (Ondansetron Hcl 4 Mg/2 Ml Vial) 4 mg IVPUSH Q8H PRN PRN Reason: Nausea and Vomiting Last Admin: 05/05/25 17:38 Dose: 4 mg Documented By: LILIANA Pharmacy Consult (Consult Rx Parenteral Nutrition Ordering) 1 each MISCELLANE DAILY PRN PRN Reason: Consult order Sodium Chloride (0.9 % Sodium Chloride Flush 3 Ml Syringe) 3 ml IVFLUSH QSHIFT [facility] Last Admin: 05/08/25 07:44 Dose: 3 ml Documented By: MAC Labs 05/07/25 03:33 05/08/25 05:44 Labs: Laboratory Results - last 24 hr 05/07/25 05/07/25 05/07/25 12:39 16:02 23:27 Anion Gap Estim Creat Clear Calc Estimated GFR POC Glucose 179 H 152 H 141 H Random Glucose Calcium Phosphorus Magnesium Triglycerides 05/08/25 05/08/25 05:44 06:20 Anion Gap 13 Estim Creat Clear Calc 109.2 Estimated GFR > 60 POC Glucose 142 H Random Glucose 149 H Calcium 8.7 Phosphorus 3.9 Magnesium 1.8 Triglycerides 175 H Assessment and Plan (1) Alcohol withdrawal: Status: Acute (2) End stage liver disease: Status: Acute (3) Upper GI bleed: Status: Acute (4) Acute and chronic respiratory failure with hypoxia: Status: Acute (5) Pneumonia: Status: Acute Plan 64-year-old gentleman with underlying history of alcohol abuse with prior alcohol withdrawal seizures admitted on 04/16/2025 with mechanical falls and withdrawal seizures with hospital course further complicated by upper GI bleed status post EGD noted gastritis and esophageal webs status post dilation, delirium tremens with dysphagia with aspiration and hypoxic respiratory failure requiring intubation and ventilatory support on 04/21/2025, extubated on 04/28/2025. Presently with rectal tube, now tachycardia, and vomitted. Toxic metabolic encephalopathy secondary to alcohol withdrawal, and likely icu delirium. Becoming more and more lucid but slowly Tachycardia, likely from underlying illness and has been chronic, HR now wnl Acute hypoxic respiratory failure secondary to aspiration with dysphagia requiring intubation, extubated 04/28/2025. No longer on abx, and on room air HypOnateremia, mild and resolved Upper GIB, Acute blood loss anemia, status post EGD on 04/19 with portal gastropathy and also esophageal web status post dilation. Has had nausea and vomiting, mild distention on exam, rectal tub in placed. CT small bowel dilatation with no transition pt, N/V stopped, surgery input, unlikely candidate for intervention. Alcoholic liver disease with chronicall elevated LFTs appear stable. Presently no gi complaint, NPO but starting diet per [employer] recommendation with NDD1 and [place] thick liquid, to be reassessed today as has been NPO again, For MBS today Pneumonia: Completed antibiotic course for aspiration pneumonia, WBC remains normal, no fever Chronic thrombocytopenia, likely due to hypersplenism from chronic alcoholic liver disease Prophylaxis:Heparin restarted but has to be stopped again due to concern for bleeding has had some old blood around his mouth, compression stocking Diet: TPN and NDD1 + [place] thick liquid, but NPO for now Plan and clincal course discussed with brother over the phone out of bed to chair, PT evla Ultimately need to be transition to SNF Total time managing care of this patient today: 80 minutes. Quality Stroke Does the patient have a stroke diagnosis?: No VTE Prior VTE?: No VTE Risk Level:: Medical - moderate - high VTE Device Contraindication: N/A - Device Ordered VTE Drug Contraindication: Treatment Not Tolerated
[2025-05-08 11:51] VITALS: BP 123/69; PULSE 104; RESP 16; TEMP 36.3; O2SAT 96
[2025-05-08 11:57] LABS: Glucose, Whole Blood 204 mg/dL (60-115)
--- NOTE | 2025-05-08 12:15 | MHC.SL.IMP ---
Date of Plan of Treatment: 05/08/25 Onset of Symptoms/Illness: 04/16/25 Date Treatment Started: 04/17/25 Admitting Diagnosis: Alcohol withdrawal, end stage liver disease, upper GI bleed, acute and chronic respiratory failure w/ hypoxia, PNA Primary Speech & Language Diagnosis: R13.12 Oropharyngeal Phase Dysphagia Reason for Today's Visit: 53077 Modified Barium Swallow Study Pre-evaluation Dietary Consistencies: NPO Pre-evaluation Liquid Consistency: NPO Pre-evaluation Medication Administration: NPO Medical History: Modified Barium Swallow Study Fluoroscopic Evaluation of Swallowing Function CPT Code 61055 Evaluation Year: 2024 Reason for Study: Difficulty swallowing Referring Physician: Shamar Jose MD Evaluating Clinician: Norah Munoz MA, CCC-FAMILY PROGRAM SPECIALIST Study Number: 1 Patient Name: Pranay Corley Status: Inpatient, Stretcher Age: 64 Sex: Male Medical History Medical History Liver lesion Lesion of liver History of alcohol abuse Tobacco abuse Gout Tongue abnormality COVID-19 vaccine series completed Use of cane as ambulatory aid History of recent fall Hx of concussion Anxiety Wears dentures Primary osteoarthritis of right hip HTN (hypertension) Surgical History History of total left hip arthroplasty Hx of colonoscopy History of fracture of leg History of arm fracture History of back surgery Current (pre-evaluation) Intake/Diet: Route: NPO Pre-Study Functional Oral Intake Scale (FOIS): 1- No oral intake Pain: None reported at time of study SUBJECTIVE: Patient is a 64 year old male brought to the hospital after sustaining mechanical falls. Patient has history of alcohol abuse. He presented with withdrawal seizures, hospital course further complicated by upper GI bleed s/p EGD noting gastritis and esophageal webs s/p dilation, delirium tremens. Patient also w/ dysphagia and aspiration, hypoxic respiratory failure requiring intubation and vent support 04/21, extubated 04/28. Patient has been followed by FAMILY PROGRAM SPECIALIST, recommended pureed (NDD1) diet with nectar thick liquids, with variable tolerance of PO. Patient now presenting with lingual wound and significant scabbing around lips. Patient is followed by Dietary, receiving PPN. He is NPO pending MBSS findings. Oral Motor Exam Facial Symmetry: Symmetrical Mouth Occlusion: Normal Oral-Facial Teeth Characteristics: Edentulous Tongue Size: Normal Tongue Excursion Description: Normal Tongue Range of Movement Description: Normal Tongue Speed of Movement Description: Reduced Tongue Strength of Movement (against opposing pressure): Reduced Tongue Movement Characteristics: Normal/Absent Food and Liquid Trials: Oral Impairment: Lip Closure: 1=Interlabial escape; no progression to anterior tip Oral Impairment: Tongue Control During Bolus Hold: Did not test Oral Impairment: Bolus Preparation/Mastication: Did not test Oral Impairment: Bolus Transport/Lingual Motion: 3=Repetitive/disorganized tongue motion Oral Impairment: Oral Residue: 2=Residue collection on oral structures Oral Impairment:Initiation of Pharyngeal Swallow: 3=Bolus head in pyriforms Pharyngeal Impairment: Soft Palate Elevation: 0=No bolus between soft palate (SP)/pharyngeal wall (PW) Pharyngeal Impairment: Laryngeal Elevation: 0=Complete superior movement of thyroid cartilage (see description) Pharyngeal Impairment: Anterior Hyoid Excursion: 1=Partial anterior movement Pharyngeal Impairment: Epiglottic Movement: 1=Partial inversion Pharyngeal Impairment: Laryngeal Vestibular Closure:: 1=Incomplete: narrow column air/contrast in laryngeal vestibule Pharyngeal Impairment: Pharyngeal Stripping Wave: 0=Present: complete Pharyngeal Impairment: Pharyngeal Contraction: Did not test Pharyngeal Impairment: Pharyngoesophageal Segment Openin=Partial distention/partial duration: partial obstruction of flow Pharyngeal Impairment: Tongue Base (TB) Retraction: 2=Narrow column of contrast/air between TB and posterior PW Pharyngeal Impairment: Pharyngeal Residue: 2=Collection of residue within or on pharyngeal structures Pharyngeal Impairment: Esophageal Clearance Upright Position: Did not test Impressions and Recommendations OBJECTIVE: Time-out: performed at 9:45 Evaluation Start: 9:30; Stop: 9:40 Patient Positioning: Seated 70-90 degrees Viewing Planes: LATERAL ONLY Contrast: MBSImP? Standardized Protocol using commercially prepared, standardized Barium viscosities, including: Varibar? THIN LIQUID (40% w/v, <15 cps) , Varibar? NECTAR (40% w/v, <150-450 cps) , Varibar? THIN HONEY (40% w/v, <800-1800 cps) , Varibar? PUDDING (40% w/v, <5828-4951 cps) MBSImP ID: [id number] MBSImP Results: Lip closure for intraoral bolus containment resulted in interlabial escape, without progression to the anterior lip. Tongue control during bolus hold could not be assessed due to logistical reasons not related to physiologic impairment. Bolus preparation and mastication received the highest impairment score; solid not given due to patient safety concerns related to oral impairment. Bolus transport/lingual motion was with repetitive/disorganized motion of the tongue. Oral residue was a collection on oral structures. Initiation of the pharyngeal swallow occurred when the bolus head was in the pyriform sinuses. Soft palate elevation resulted in no bolus between the soft palate and the pharyngeal wall. Laryngeal elevation demonstrated complete superior movement of the thyroid cartilage with complete approximation of the arytenoids to the epiglottic petiole. Anterior hyoid excursion demonstrated partial anterior movement. Epiglottic movement resulted in partial inversion. Laryngeal vestibular closure was incomplete, with a narrow column of air/contrast noted within the laryngeal vestibule at the height of the swallow. Pharyngeal stripping wave was present and complete. Pharyngeal contraction could not be determined due to logistical reasons not related to physiologic impairment. Pharyngoesophageal segment opening demonstrated partial distension/partial duration, with partial obstruction of bolus flow. Tongue base retraction allowed a narrow column of contrast or air between the retracted tongue base and the posterior pharyngeal wall. Pharyngeal residue was a collection of residue within or on pharyngeal structures. Esophageal clearance in the upright position could not be assessed due to logistical reasons not related to physiologic impairment. Oral Impairment Score: 11 (absence of score, component 2) Pharyngeal Impairment Score: 8 (absence of score, component 13) Esophageal Impairment Score: --- (absence of score, component 17) Laryngeal Penetration and Aspiration: Neither penetration nor aspiration was observed in today's study with Honey-thick. Penetration was observed in today's study. Pudding-thick Contrast entered the airway, remained above the vocal folds, and was ejected from the airway. [place]-thick, Thin Contrast entered the airway, contacted the vocal folds, and were not ejected from the airway. ASSESSMENT: This exam was performed by the radiologist and the speech pathologist. Patient was seated upright at 90 degrees in a stretcher for lateral view. Patient was able to feed himself, though he exhibited impulsive behaviors, such as chugging from the cup and taking heaping spoonfuls of food. He was cued throughout trials for smaller bolus size, individual presentations, and slower pacing. The following consistencies were trialed: -Honey thick (via rapid cup sips) -[place] thick (via individual cup sips & rapid cup sips) -Thin (via rapid cup sips) -Puree (mixture applesauce w/ barium pudding). Patient was offered soft solids, but refused despite encouragement. He is edentulous without dentures. Patient previously reported he has dentures but hates wearing them. Note interlabial escape with bolus coating the interlabial space. Delayed AP transport, at times with repetitive tongue pumping motion. Patient displayed piece meal clearing. He filled the oral cavity with food/liquid and then cleared bolus with additional swallows. Pharyngeal swallow trigger was significantly delayed, initiated as the bolus reached the level of the pyriforms. Post-swallow, there was minimal residue diffusely coating the floor of mouth, palate, tongue tip and base of tongue. No evidence of nasopharyngeal reflux. Complete laryngeal elevation, with partial anterior hyoid excursion, partial epiglottic inversion, and partial laryngeal vestibular closure. There was mild residue in the valleculae and pyriforms and on the posterior pharyngeal wall, which was reduced with multiple dry swallows. -Honey thick: No evidence of aspiration or penetration on chain sips. -[place] thick: There was deep penetration seen at least to the vocal folds, with question of subglottic aspiration on chain sips and individual sips. No spontaneous protective reflex elicited. Patient was cued to clear his throat and re-swallow, which reduced, but did not entirely eliminate contrast from the trachea. -Thin: There was deep penetration seen to the vocal folds with no spontaneous coughing or throat clearing. -Puree: There was penetration seen intermittently above the vocal folds which cleared on subsequent swallows. The following compensatory strategies have not been used until today's study, but when employed, improved swallowing function: Honey-thick Liquid eliminated Penetration, Aspiration Bolus Volume Change decreased Penetration Rate of Ingestion Change decreased Penetration Additional Swallow(s) per Bolus decreased Oral Residue, Pharyngeal Residue Throat Clear decreased Penetration Liquid Intake Recommendation: Honey Thick Liquid Intake Strategies: Small Sips, No Straws, Double Swallow Dietary Recommendations: Pureed (NDD1) Medication Administration: Crushed with Puree Please contact the pharmacy regarding appropriate crushable or liquid drug formulations that are available whenever modified delivery is recommended. Compensatory Strategies Recommended: Sitting Upright (90 deg), Double Swallow, No Straw, Liquids from Cup, Liquids from Spoon, Small Bites and Sips, Rate of Ingestion Change Supervision during eating and or drinking: Total Assistance (1:1) Recommended Treatments: Compens. Strategy Educat. Recommendation for Speech Therapy: Inpatient Speech Therapy Speech Therapy through Rehab Facility Text Comment: Intake Recommendations: Route: PO Diet Grade: Puree Liquid Consistencies: Honey Post-Study Functional Oral Intake Scale (FOIS): 5- Total oral intake of multiple consistencies requiring special preparation Patient presents with moderate oropharyngeal dysphagia. Slow and disorganized oral phase, characterized by repetitive tongue pumping, piece meal clearing, delayed AP transport, and presence of mild oral residue after swallow was completed. Pharyngeal phase was marked by delayed swallow trigger and reduced airway protection, with evidence of deep laryngeal penetration on thin and nectar thick consistencies, with questions of trace subglottic aspiration. Patient displayed reduced tongue base retraction and pooling of residue in the valleculae and pyriforms. Throat [id number] strategy reduced, but did not entirely clear contrast from the airway. Dry swallows decreased residue in the oral and pharyngeal cavities. Therapy Recommendations: Risk of aspiration associated with confusion, impulsivity while feeding, poor sensory response, and weak cough/voice. Recommend re-start on PUREED diet (NDD1) and DOWNGRADE to HONEY THICK liquids, with pills CRUSHED in PUREE. Patient is able to feed himself, however, will need direct supervision and close monitoring at meal time for safety. Provide assistance as needed to ensure containers are opened and accessible. Patient will need consistent cuing for the following strategies: -Take small bites -Dry swallow after bites -Clear oral cavity before taking next bite -Check oral cavity periodically for clearance -Liquids via teaspoon or controlled cup -Avoid straws -Take one small sip at a time -Avoid consecutive sips -Between bites/sips, clear throat and re-swallow -Maintain upright 90 degree position during PO intake and for at least 30 minutes afterwards -Provide daily oral care Therapy will be continued while inpatient for PO trials, monitoring of diet tolerance, training of compensatory strategies, and patient/caregiver education. Patient will need continued speech therapy for the treatment of dysphagia at the next level of care. The following compensatory strategies and/or therapeutic exercises will be part of the upcoming therapy/management plan: Honey-thick Liquid Bolus Volume Change Rate of Ingestion Change Additional Swallow(s) per Bolus Throat Clear Rolled Seat Trimmer Goals: ? The patient will tolerate the least restrictive diet with a safe/efficient swallow to maintain adequate nutrition and hydration. ? The patient and/or family will participate in further education for swallowing goals. Short Term Goals: ? Diet - The patient will tolerate a pureed diet with honey thick liquids without signs or symptoms of penetration/aspiration 100% of the time. - The patient will participate in therapeutic PO trials with the FAMILY PROGRAM SPECIALIST. ? Guidelines - The patient will comply with/recall the following guidelines/strategies 100% of the time with minimal cuing: Honey-thick Liquid, Bolus Volume Change, Rate of Ingestion Change, Additional Swallow(s) per Bolus, Throat Clear, No Straws. ? Education - The patient, family, caregiver, nurse will verbalize/demonstrate understanding of the results of this evaluation, the above recommendations, and the swallowing guidelines. Clinician - Supplemental, Miscellaneous Communication: It is important to note MBSS objective studies are snapshots in time and Patient function might vary with factors such as time of day or concomitant medical conditions. For this reason, the final treatment plan for this patient should rest with their medical care team. Additional recommendations should be considered with the totality of the Patient in mind. Thank for the opportunity to participate in the care of this patient. If you have any questions about the content of this report, please contact the [facility]. Education: Education regarding findings from today's study and plans for therapy were provided to Patient only through Verbal Instruction. Understanding was expressed by the Patient only. Frequency/Duration: M-F while inpatient Date Range for Service Requested: Timeline to reassess: PRN Doughnut Machine Operator Clinician/Clinical Fellow: No Supervisory Statement: N/A Speech Language Pathologist: Norah Munoz M.A., [facility]-FAMILY PROGRAM SPECIALIST
[2025-05-08 16:00] VITALS: BP 120/70; PULSE 102; RESP 19; TEMP 37.1; O2SAT 95
[2025-05-08 16:39] LABS: Glucose, Whole Blood 153 mg/dL (60-115)
[2025-05-08 20:00] VITALS: BP 122/69; PULSE 105; RESP 19; TEMP 36.7; O2SAT 96
[2025-05-08] MEDS: Parenteral Nutrition 1,920 ML 80 ML IV (22:33)
[2025-05-08 23:15] VITALS: BP 122/71; PULSE 99; RESP 18; TEMP 36.8; O2SAT 96
[2025-05-08 23:53] LABS: Glucose, Whole Blood 154 mg/dL (60-115)
[2025-05-09 03:42] VITALS: BP 106/75; PULSE 106; RESP 20; TEMP 36.6; O2SAT 96
[2025-05-09 05:47] VITALS: BMI 25.9
[2025-05-09 05:50] LABS: Glucose, Whole Blood 155 mg/dL (60-115)
[2025-05-09 06:29] LABS: Anion Gap 12 (12-20); Blood Urea Nitrogen 17 mg/dL (9-16); Calcium 8.9 mg/dL (8.4-10.2); Carbon Dioxide 18 mmol/L (22-29); Chloride 106 mmol/L (96-108); Creatinine Clr Calc Pharmacy 111.0; Estimated Glomerular Filt Rate > 60; Magnesium 1.8 mg/dL (1.6-2.6); Potassium 4.7 mmol/L (3.3-5.1); Sodium 131 mmol/L (135-145)
[2025-05-09] MEDS: Thiamine HCL 100 MG in 0.9 % Sodium Chloride 100 ML 202 MG IV (07:36)
[2025-05-09] MEDS: 0.9 % Sodium Chloride Flush 3 ML SYRINGE IVFLUSH ×2 (07:40→22:16)
[2025-05-09 07:43] VITALS: BP 111/66; PULSE 106; RESP 20; TEMP 36.2; O2SAT 98
--- NOTE | 2025-05-09 10:21 | MHC.CLN ---
F/U SWALLOW STUDY COMPLETED. DIET PER GALVANIZING POT RUNNER REC, PUREE WITH HONEY THICK LIQUIDS. PATIENT WITH LIMITED PO INTAKE. CONTINUES WITH PPN FOR NUTRITION/HYDRATION. REVIEWED LABS. COMMUNICATED WITH PHARMACY. CONTINUE PPN AT 80ML PER HOUR WITH 97G LIPIDS PROVIDES 1949 KCALS (29KCALS/KG IBW), 82G PROTEIN (1.2G/KG IBW), 192G DEXTROSE. REPLETE LYTES NEEDED. MONITOR FOR PO INTAKE AND PPN TOLERANCE.
--- NOTE | 2025-05-09 11:57 | MHC.SLORD ---
Speech Language Pathology Order Status: COMMERCIAL LIGHT FIXTURE ASSEMBLER attempted to see patient for dysphagia f/u this morning. Patient expressed he felt weak and refused all offerings of PO despite encouragement. COMMERCIAL LIGHT FIXTURE ASSEMBLER provided oral care, ENFORCEMENT SAFETY OFFICER arrived to shave patient's face. Please see MBSS full report- Recommend PUREED (NDD1) solids and HONEY THICK liquids with 1:1 assistance.
[2025-05-09 12:00] VITALS: BP 121/72; PULSE 102; RESP 16; TEMP 36.6; O2SAT 97
[2025-05-09 12:08] LABS: Glucose, Whole Blood 152 mg/dL (60-115)
--- NOTE | 2025-05-09 15:00 | MHC.CM.PN ---
EMR REVIEWED AND PER MD ROUNDS, PT NOT YET MEDICALLY CLEARED FOR DC ( +MBS, CONTINUES ON PPN) SNF REFERRALS UPDATED VIA [facility] AND CM WILL CONTINUE TO FOLLOW FOR PLAN.
--- NOTE | 2025-05-09 15:03 | PC.NURSE ---
MD Jose made aware IV TPN infiltrated in right FA, area edematous and pink, compress applied, pt denies pain.
[2025-05-09 15:20] VITALS: BP 111/75; PULSE 71; RESP 18; TEMP 36.2; O2SAT 95
[2025-05-09 15:58] LABS: Glucose, Whole Blood 143 mg/dL (60-115)
[2025-05-09 19:19] VITALS: BP 98/62; PULSE 100; RESP 18; TEMP 36.4; O2SAT 96
[2025-05-09] MEDS: Parenteral Nutrition 1,920 ML 80 ML IV (22:12)
[2025-05-10] VITALS: BP 114/63; PULSE 115; RESP 18; TEMP 36.9; O2SAT 95
[2025-05-10 00:26] LABS: Glucose, Whole Blood 157 mg/dL (60-115)
[2025-05-10 03:58] VITALS: BP 102/63; PULSE 85; RESP 18; TEMP 36.9; O2SAT 98
[2025-05-10 06:09] LABS: Glucose, Whole Blood 126 mg/dL (60-115)
[2025-05-10 06:30] LABS: Anion Gap 11 (12-20); Blood Urea Nitrogen 17 mg/dL (9-16); Calcium 8.7 mg/dL (8.4-10.2); Carbon Dioxide 19 mmol/L (22-29); Chloride 106 mmol/L (96-108); Creatinine Clr Calc Pharmacy 107.5; Estimated Glomerular Filt Rate > 60; Magnesium 1.8 mg/dL (1.6-2.6); Potassium 4.6 mmol/L (3.3-5.1); Sodium 131 mmol/L (135-145)
[2025-05-10 07:42] VITALS: BP 129/70; PULSE 100; RESP 20; TEMP 37; O2SAT 95
--- NOTE | 2025-05-10 09:04 | MHC.CLN ---
F/U PO INTAKE VARIES BETWEEN 0-25%-LIMITED DIET RX: PUREE WITH HONEY THICK LIQUIDS CONTINUES WITH PPN FOR NUTRITION/HYDRATION REVIEWED LABS-NOTED DECREASED SERUM NA DISCUSSED WITH PHARMACY RECOMMEND PPN AT 70ML PER HOUR WITH 83G LIPIDS TO PROVIDE 1687 TOTAL KCALS (25KCALS/KG IBW), 71G PROTEIN (1.0G/KG IBW), 168G DEXTROSE, 1680 TOTAL VOLUME (25ML/KG IBW) REPLETE LYTES NEEDED MONITOR FOR PO INTAKE AND PPN TOLERANCE
[2025-05-10] MEDS: 0.9 % Sodium Chloride Flush 3 ML SYRINGE IVFLUSH ×2 (09:39→22:13)
--- NOTE | 2025-05-10 09:44 | HO.PM.IMPN ---
Subjective Subjective Date of Service: 05/10/25 Interval History: No new issues, but appear to have had bleeding of his tongue laceration Physical Exam Vital Signs: Vital Signs: Last Vital Signs Temp 98.6 F 05/10/25 07:42 Pulse 100 05/10/25 07:42 Resp 20 05/10/25 07:42 BP 129/70 05/10/25 07:42 Pulse Ox 95 05/10/25 07:42 O2 Del Method Room Air 05/10/25 07:42 O2 Flow Rate 1 05/06/25 03:18 FiO2 35 04/28/25 12:00 BMI result Body Mass Index 25.9 Const: Other: General: Alert less confused, no acute distress HEENT-has a laceration of the tongue,appears old and no sings of active bleeding Resp: CTA bilateral CVS: S1,S2,RRR GI: +BS, NT, mild distention, Skin: No rash Neuro: motor grossly intact Psych: appropriate affect Objective Data Active Medications Dextrose (Dextrose 50 % 25 Gm/50 Ml Syringe) 25 gm IVPUSH Q15M PRN; Protocol PRN Reason: per Hypoglycemia Standing Ord. Glucose (Glucose Gel 15 Gm Gel..Gram.) 15 gm PO Q15M PRN; Protocol PRN Reason: per Hypoglycemia Standing Ord. Heparin Sodium (Porcine) (Heparin Sodium,Porcine 5,000 Unit/Ml Vial) 5,000 unit SUBCUT BID DAMIÁN On Hold: 05/06/25 10:10 Last Admin: 05/06/25 08:13 Dose: 5,000 unit Documented By: LILIANA Thiamine HCl 100 mg/ Sodium (Chloride) 101 mls @ 202 mls/hr IV DAILY DAMIÁN Last Infusion: 05/09/25 08:20 Dose: Infused Documented By: MAC Folic Acid 1 mg/ Sodium (Chloride) 50.2 mls @ 100.4 mls/hr IV DAILY DAMIÁN Last Admin: 05/10/25 09:44 Dose: 100.4 mls/hr Documented By: CADEN Nutrition (Parenteral) (Parenteral Nutrition) 1,920 mls @ 80 mls/hr IV .Q24H DAMIÁN; Protocol Stop: 05/10/25 20:59 Last Admin: 05/09/25 22:12 Dose: 80 mls/hr Documented By: TALAT Nutrition (Parenteral) (Parenteral Nutrition) 1,680 mls @ 70 mls/hr IV .Q24H [facility]; Protocol Stop: 05/11/25 20:59 Insulin Human Lispro (Insulin Lispro 100 Unit/Ml 3 Ml Vial) 0 unit SUBCUT Q6H [facility]; Protocol Last Admin: 05/10/25 06:12 Dose: Not Given Documented By: TALAT Non-Admin Reason: No Insulin Coverage Nystatin (Nystatin Powder 15 Gm Bottle) 1 appl TOPICAL BID [facility]; Protocol Last Admin: 05/09/25 22:15 Dose: 1 appl Documented By: TALAT Ondansetron HCl (Ondansetron Hcl 4 Mg/2 Ml Vial) 4 mg IVPUSH Q8H PRN PRN Reason: Nausea and Vomiting Last Admin: 05/05/25 17:38 Dose: 4 mg Documented By: LILIANA Pharmacy Consult (Consult Rx Parenteral Nutrition Ordering) 1 each MISCELLANE DAILY PRN PRN Reason: Consult order Sodium Chloride (0.9 % Sodium Chloride Flush 3 Ml Syringe) 3 ml IVFLUSH QSHIFT [facility] Last Admin: 05/10/25 09:39 Dose: 3 ml Documented By: CADEN Labs 05/07/25 03:33 05/10/25 05:10 Labs: Laboratory Results - last 24 hr 05/09/25 05/09/25 05/09/25 12:05 15:55 23:59 Anion Gap Estim Creat Clear Calc Estimated GFR POC Glucose 152 H 143 H 157 H Random Glucose Calcium Phosphorus Magnesium 05/10/25 05/10/25 05:10 06:03 Anion Gap 11 L Estim Creat Clear Calc 107.5 Estimated GFR > 60 POC Glucose 126 H Random Glucose 130 H Calcium 8.7 Phosphorus 4.0 Magnesium 1.8 Assessment and Plan (1) Alcohol withdrawal: Status: Acute (2) End stage liver disease: Status: Acute (3) Upper GI bleed: Status: Acute (4) Acute and chronic respiratory failure with hypoxia: Status: Acute (5) Pneumonia: Status: Acute Plan 64-year-old gentleman with underlying history of alcohol abuse with prior alcohol withdrawal seizures admitted on 04/16/2025 with mechanical falls and withdrawal seizures with hospital course further complicated by upper GI bleed status post EGD noted gastritis and esophageal webs status post dilation, delirium tremens with dysphagia with aspiration and hypoxic respiratory failure requiring intubation and ventilatory support on 04/21/2025, extubated on 04/28/2025. Presently with rectal tube, now tachycardia, and vomitted. Toxic metabolic encephalopathy secondary to alcohol withdrawal, and likely icu delirium. Becoming more and more lucid but slowly Tachycardia, likely from underlying illness and has been chronic, HR now wnl Acute hypoxic respiratory failure secondary to aspiration with dysphagia requiring intubation, extubated 04/28/2025. No longer on abx, and on room air HypOnateremia, mild and resolved Upper GIB, Acute blood loss anemia, status post EGD on 04/19 with portal gastropathy and also esophageal web status post dilation. Has had nausea and vomiting, mild distention on exam, rectal tub in placed. CT small bowel dilatation with no transition pt, N/V stopped, surgery input, unlikely candidate for intervention. Alcoholic liver disease with chronicall elevated LFTs appear stable. Presently no gi complaint, NPO but starting diet per INSTALLER APPRENTICE recommendation with NDD1 and [place] thick liquid, to be reassessed today as has been NPO again, For MBS today Tongue laceration, cause unclear, might have surgery see it Pneumonia: Completed antibiotic course for aspiration pneumonia, WBC remains normal, no fever Chronic thrombocytopenia, likely due to hypersplenism from chronic alcoholic liver disease Prophylaxis:Heparin restarted but has to be stopped again due to concern for bleeding has had some old blood around his mouth, compression stocking Diet: TPN and NDD1 + [place] thick liquid, but NPO for now Plan and clincal course discussed with brother over the phone out of bed to chair, PT evla Ultimately need to be transition to SNF Total time managing care of this patient today: 80 minutes. Quality Stroke Does the patient have a stroke diagnosis?: No VTE Prior VTE?: No VTE Risk Level:: Medical - moderate - high VTE Device Contraindication: N/A - Device Ordered VTE Drug Contraindication: Treatment Not Tolerated
[2025-05-10] MEDS: Thiamine HCL 100 MG in 0.9 % Sodium Chloride 100 ML 202 MG IV (10:21)
[2025-05-10 11:46] LABS: Glucose, Whole Blood 146 mg/dL (60-115)
[2025-05-10 11:48] VITALS: BP 132/72; PULSE 111; RESP 20; TEMP 37.2; O2SAT 96
--- NOTE | 2025-05-10 14:35 | MHC.SL.SWA ---
Speech Pathologist Impression: Risk of Aspiration Due to: Medically Fragile Hx of Recent Extubation Reduced Cognition Weak Cough Weak Voice Dysphasia Diet Status: Recommend continue on current diet of PUREE (NDD1) with HONEY Thick liquids, pills crushed in puree, 1-1 assistance at all meals. Allow single ice chips (up to ten) between meals and after oral care. Liquid Consistency and Strategies for Safe Swallow: Liquid Intake Recommendation: Honey Thick Liquid Intake Strategies: Small Sips No Straws Double Swallow Solid Food Consistency: Dietary Recommendations: Pureed (NDD1) Additional Modifications to Solid Foods: Oral Medication Intake: Crushed with Puree Please contact the pharmacy regarding appropriate crushable or liquid drug formulations that are available whenever modified delivery is recommended. Compensatory Strategies and Precautions to be Taken for Safe Swallow: Sitting Upright (90 deg) Double Swallow No Straw Liquids from Cup Liquids from Spoon Small Bites and Sips Rate of Ingestion Change Supervision While Eating and Drinking for Safe Swallow: Total Assistance (1:1) Foods to Avoid: Tough, difficult to chew solids, dry crunchy textures. Swallowing Recommended Treatments: Compens. Strategy Educat. Recommendation for Speech: Inpatient Speech Therapy Speech Therapy through Rehab Facility Comment: Patient seen today at breakfast. Patient was seated in chair beside bed, had been seen by PT earlier who had got him up and into chair. Sitter was present in room. Sitter had attempted breakfast with patient, with patient refusing. PRINT COLOR MATCHER offered patient ice chips to moisturize mouth, which patient accepted. PRINT COLOR MATCHER provided patient with single ice chips, which patient held in mouth, dissolved and then swallowed residual liquid. Patient was given 10 ice chips, there were no clinical signs of aspiration during this treatment, patient tolerated well. Patient was further given mouth moisture for evident dry lips and sores. Lingual wound presents as improved. Recommended to RN, Sitter that patient be allowed single ice chips (up to ten) in this manner between meals for comfort, after being given oral care. Recommend continue on current diet of PUREE (NDD1) with HONEY Thick liquids, pills crushed in puree, 1-1 assistance at all meals. PRINT COLOR MATCHER will continue to follow. Therapy Recommendations from MBSS of 05/08/25 Risk of aspiration associated with confusion, impulsivity while feeding, poor sensory response, and weak cough/voice. Recommend re-start on PUREED diet (NDD1) and DOWNGRADE to HONEY THICK liquids, with pills CRUSHED in PUREE. Patient is able to feed himself, however, will need direct supervision and close monitoring at meal time for safety. Provide assistance as needed to ensure containers are opened and accessible. Patient will need consistent cuing for the following strategies: -Take small bites -Dry swallow after bites -Clear oral cavity before taking next bite -Check oral cavity periodically for clearance -Liquids via teaspoon or controlled cup -Avoid straws -Take one small sip at a time -Avoid consecutive sips -Between bites/sips, clear throat and re-swallow -Maintain upright 90 degree position during PO intake and for at least 30 minutes afterwards -Provide daily oral care Frequency/Duration: M-F while inpatient Date Range for Service Req: Timeline to reassess: PRN Shower Screen Installer Clinican/Clinical Fellow: No Supervisory Statement: I have reviewed and agree with the student/clinical fellow's documentation: N/A Speech Language Pathologist: Nisha Flores M.A., CCC-PRINT COLOR MATCHER
[2025-05-10 15:47] VITALS: BP 117/63; PULSE 112; RESP 19; TEMP 37.4; O2SAT 96
[2025-05-10 18:07] LABS: Glucose, Whole Blood 153 mg/dL (60-115)
[2025-05-10 20:00] VITALS: BP 121/62; PULSE 114; RESP 20; TEMP 37.5; O2SAT 95
[2025-05-10] MEDS: Parenteral Nutrition 1,680 ML 70 ML IV (21:57)
[2025-05-11] VITALS (9 sets, daily range): BP systolic 105–126; BP diastolic 55–70; PULSE 104–116; RESP 18–22; TEMP 36.8–37.7; O2SAT 91–97; BMI 25.9
--- NOTE | 2025-05-11 | ECG_ITS ---
Test Reason : TACHYCARDIA Blood Pressure : */* mmHG Vent. Rate : 108 BPM Atrial Rate : 108 BPM P-R Int : 162 ms QRS Dur : 72 ms QT Int : 328 ms P-R-T Axes : 60 49 72 degrees QTcB Int : 439 ms Sinus tachycardia Low voltage QRS Borderline ECG When compared with ECG of 16-Apr-2025 14:59, Nonspecific T wave abnormality no longer evident in Inferior leads Nonspecific T wave abnormality, improved in Anterolateral leads Referred By: Shamar Jose Electronically Signed By: ERIN VOGEL MD
--- NOTE | 2025-05-11 | ECG_ITS ---
Test Reason : tachy Blood Pressure : */* mmHG Vent. Rate : 107 BPM Atrial Rate : 107 BPM P-R Int : 156 ms QRS Dur : 74 ms QT Int : 340 ms P-R-T Axes : 54 25 74 degrees QTcB Int : 453 ms Sinus tachycardia with Baseline wander Otherwise normal ECG When compared with ECG of 11-May-2025 14:10, No significant changes seen Referred By: Esha Lau Electronically Signed By: ERIN VOGEL MD
[2025-05-11 00:21] LABS: Glucose, Whole Blood 143 mg/dL (60-115)
[2025-05-11 06:00] LABS: Anion Gap 12 (12-20); Blood Urea Nitrogen 20 mg/dL (9-16); Calcium 8.4 mg/dL (8.4-10.2); Carbon Dioxide 19 mmol/L (22-29); Chloride 107 mmol/L (96-108); Creatinine Clr Calc Pharmacy 98.3; Estimated Glomerular Filt Rate > 60; Magnesium 1.8 mg/dL (1.6-2.6); Potassium 4.5 mmol/L (3.3-5.1); Sodium 133 mmol/L (135-145)
[2025-05-11 06:12] LABS: Glucose, Whole Blood 163 mg/dL (60-115)
[2025-05-11] MEDS: 0.9 % Sodium Chloride Flush 3 ML SYRINGE IVFLUSH ×3 (07:44→21:20)
[2025-05-11] MEDS: Thiamine HCL 100 MG in 0.9 % Sodium Chloride 100 ML 202 MG IV (08:18)
--- NOTE | 2025-05-11 10:21 | HO.PM.IMPN ---
Subjective Subjective Date of Service: 05/12/25 Interval History: Patient reported had increase cough, and sings of aspiration following ice chips and noted to be wheezy as well, tachycardic, no fever, no hypoxia WBC normal, ABG unremarkable, Lactic acid normal, Pro BNP 1000, CXR showed worsening disease and started on Zosyn. Made NPO again Physical Exam Vital Signs: Vital Signs: Last Vital Signs Temp 99.5 F 05/11/25 07:38 Pulse 106 H 05/11/25 07:38 Resp 20 05/11/25 07:38 BP 109/59 L 05/11/25 07:38 Pulse Ox 96 05/11/25 07:38 O2 Del Method Room Air 05/11/25 07:38 O2 Flow Rate 1 05/06/25 03:18 FiO2 35 04/28/25 12:00 BMI result Body Mass Index 25.9 Const: Other: General: Alert less confused, no acute distress HEENT-has a laceration of the tongue,appears old and no sings of active bleeding Resp: CTA bilateral CVS: S1,S2,RRR GI: +BS, NT, mild distention, Skin: No rash Neuro: motor grossly intact Psych: appropriate affect Objective Data Active Medications Dextrose (Dextrose 50 % 25 Gm/50 Ml Syringe) 25 gm IVPUSH Q15M PRN; Protocol PRN Reason: per Hypoglycemia Standing Ord. Glucose (Glucose Gel 15 Gm Gel..Gram.) 15 gm PO Q15M PRN; Protocol PRN Reason: per Hypoglycemia Standing Ord. Heparin Sodium (Porcine) (Heparin Sodium,Porcine 5,000 Unit/Ml Vial) 5,000 unit SUBCUT BID DAMIÁN On Hold: 05/06/25 10:10 Last Admin: 05/06/25 08:13 Dose: 5,000 unit Documented By: LILIANA Thiamine HCl 100 mg/ Sodium (Chloride) 101 mls @ 202 mls/hr IV DAILY DAMIÁN Last Infusion: 05/11/25 09:11 Dose: Infused Documented By: CADEN Folic Acid 1 mg/ Sodium (Chloride) 50.2 mls @ 100.4 mls/hr IV DAILY DAMIÁN Last Infusion: 05/11/25 08:18 Dose: Infused Documented By: CADEN Nutrition (Parenteral) (Parenteral Nutrition) 1,680 mls @ 70 mls/hr IV .Q24H DAMIÁN; Protocol Stop: 05/11/25 20:59 Last Admin: 05/10/25 21:57 Dose: 70 mls/hr Documented By: TALAT Insulin Human Lispro (Insulin Lispro 100 Unit/Ml 3 Ml Vial) 0 unit SUBCUT Q6H [facility]; Protocol Last Admin: 05/11/25 06:12 Dose: Not Given Documented By: BARRY Non-Admin Reason: poor po intake Nystatin (Nystatin Powder 15 Gm Bottle) 1 appl TOPICAL BID DAMIÁN; Protocol Last Admin: 05/11/25 07:44 Dose: 1 appl Documented By: CADEN Ondansetron HCl (Ondansetron Hcl 4 Mg/2 Ml Vial) 4 mg IVPUSH Q8H PRN PRN Reason: Nausea and Vomiting Last Admin: 05/05/25 17:38 Dose: 4 mg Documented By: LILIANA Pharmacy Consult (Consult Rx Parenteral Nutrition Ordering) 1 each MISCELLANE DAILY PRN PRN Reason: Consult order Sodium Chloride (0.9 % Sodium Chloride Flush 3 Ml Syringe) 3 ml IVFLUSH QSHIFT [facility] Last Admin: 05/11/25 07:44 Dose: 3 ml Documented By: CADEN Labs 05/11/25 23:53 05/12/25 06:04 Labs: Laboratory Results - last 24 hr 05/10/25 05/10/25 05/11/25 11:35 18:01 00:02 Hold Purple Top Anion Gap Estim Creat Clear Calc Estimated GFR POC Glucose 146 H 153 H 143 H Random Glucose Calcium Phosphorus Magnesium 05/11/25 05/11/25 05:25 06:08 Hold Purple Top SEE NOTE Anion Gap 12 Estim Creat Clear Calc 98.3 Estimated GFR > 60 POC Glucose 163 H Random Glucose 160 H Calcium 8.4 Phosphorus 4.5 Magnesium 1.8 Assessment and Plan (1) Alcohol withdrawal: Status: Acute (2) End stage liver disease: Status: Acute (3) Upper GI bleed: Status: Acute (4) Acute and chronic respiratory failure with hypoxia: Status: Acute (5) Pneumonia: Status: Acute Plan 64-year-old gentleman with underlying history of alcohol abuse with prior alcohol withdrawal seizures admitted on 04/16/2025 with mechanical falls and withdrawal seizures with hospital course further complicated by upper GI bleed status post EGD noted gastritis and esophageal webs status post dilation, delirium tremens with dysphagia with aspiration and hypoxic respiratory failure requiring intubation and ventilatory support on 04/21/2025, extubated on 04/28/2025. Presently with rectal tube, now tachycardia, and vomitted. Toxic metabolic encephalopathy secondary to alcohol withdrawal, and likely icu delirium, overall better but still confused at baseline Tachycardia, likely from underlying illness and has been chronic, monitor Acute hypoxic respiratory failure secondary to aspiration with dysphagia requiring intubation, extubated 04/28/2025. No longer on abx, and on room air. Pneumonia: Completed antibiotic course for aspiration pneumonia, WBC remains normal, no fever, but may have developped new aspiration pneumona and started on Unasyn continue Keep NPO for nw HypOnateremia, mild monitor Upper GIB, Acute blood loss anemia, status post EGD on 04/19 with portal gastropathy and also esophageal web status post dilation. Has had nausea and vomiting, mild distention on exam, rectal tub in placed. CT small bowel dilatation with no transition pt, N/V stopped, surgery input, unlikely candidate for intervention. Alcoholic liver disease with chronicall elevated LFTs appear stable. Tongue laceration, cause unclear, might have surgery see it, and has been having intermittent bleeding from the mouth, H/H is low but relatively stable. 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 Quality Stroke Does the patient have a stroke diagnosis?: No VTE Prior VTE?: No VTE Risk Level:: Medical - moderate - high VTE Device Contraindication: N/A - Device Ordered VTE Drug Contraindication: Treatment Not Tolerated
--- NOTE | 2025-05-11 10:56 | MHC.CLN ---
Addendum entered by Vero Hopson RD 05/11/25 11:00: CONTINUE PPN AT GOAL RATE PER 05/[address] AVAILABLE VIA TIGER TEXT IF NEEDED. Original Note: F/U PO INTAKE VARIES BETWEEN 0-25% WITH OVERALL LIMITED PO INTAKE DIET RX: PUREE WITH HONEY THICK LIQUIDS HAS TONGUE ULCER AND SCABS/ULCERS AT CORNERS OF MOUTH PER SYSTEMS MGR, ALLOWING LIMITED ICE CHIPS CONTINUES WITH PPN FOR NUTRITION/HYDRATION REVIEWED LABS DISCUSSED WITH PHARMACY RECOMMEND CONTINUE PPN AT 70ML PER HOUR WITH 83G LIPIDS TO PROVIDE 1687 TOTAL KCALS (25KCALS/KG IBW), 71G PROTEIN (1.0G/KG IBW), 168G DEXTROSE REPLETE LYTES NEEDED MONITOR FOR PO INTAKE AND PPN TOLERANCE
[2025-05-11 11:56] LABS: Glucose, Whole Blood 136 mg/dL (60-115)
--- NOTE | 2025-05-11 13:54 | MHC.SLORD ---
Speech Language Pathology Order Status: ETL DEVELOPER attempted to see patient for dysphagia tx earlier this a.m. Patient declined offering of ice chips/snack. Patient was drowsy and quickly falling back asleep. ETL DEVELOPER to re-attempt later this p.m. as schedule allows.
[2025-05-11 14:29] LABS: WBC ABN SCTR FOR CBC 1
[2025-05-11 14:57] LABS: Hematocrit 24.7 % (42.0-52.0); Hemoglobin 8.0 g/dl (14.0-18.0); Mean Corpuscular HGB Conc 32.4 g/dl (31.0-36.0); Mean Corpuscular Hemoglobin 34.5 pg (27.0-33.0); Mean Corpuscular Volume 106.5 fL (80.0-98.0); NRBC Abs Auto 0.000 X10*3/uL (0.0-0.012); NRBC Pct Auto 0.0 /100WBC (0.0-0.2); PLT CLUMP 1; Red Blood Count 2.32 X10*6/uL (4.60-5.80)
[2025-05-11 15:02] LABS: White Blood Count 9.1 X10*3/uL (4.8-10.8)
[2025-05-11 15:03] LABS: Platelet Count 119 X10*3/uL (160-400)
--- NOTE | 2025-05-11 16:38 | MHC.SL.SWA ---
Speech Pathologist Impression: Risk of Aspiration, Oropharyngeal Dysphagia Risk of Aspiration Due to: Medically Fragile Hx of Recent Extubation Reduced Cognition Weak Cough Weak Voice Dysphasia Diet Status: Recommend continue on current diet of PUREE (NDD1) with HONEY Thick liquids, pills crushed in puree, 1-1 assistance at all meals. Allow single ice chips (up to ten) between meals and after oral care. Liquid Consistency and Strategies for Safe Swallow: Liquid Intake Recommendation: Honey Thick Liquid Intake Strategies: Small Sips No Straws Double Swallow Solid Food Consistency: Dietary Recommendations: Pureed (NDD1) Additional Modifications to Solid Foods: Ice chips after oral care Oral Medication Intake: Crushed with Puree Please contact the pharmacy regarding appropriate crushable or liquid drug formulations that are available whenever modified delivery is recommended. Compensatory Strategies and Precautions to be Taken for Safe Swallow: Sitting Upright (90 deg) Double Swallow No Straw Liquids from Cup Liquids from Spoon Small Bites and Sips Rate of Ingestion Change Supervision While Eating and Drinking for Safe Swallow: Total Assistance (1:1) Foods to Avoid: Tough, difficult to chew solids, dry crunchy textures. Swallowing Recommended Treatments: Compens. Strategy Educat. Recommendation for Speech: Inpatient Speech Therapy Speech Therapy through Rehab Facility Comment: Intake Recommendations: Route: PO Diet Grade: Puree Liquid Consistencies: Honey Post-Study Functional Oral Intake Scale (FOIS): 5- Total oral intake of multiple consistencies requiring special preparation Patient presents with moderate oropharyngeal dysphagia. Slow and disorganized oral phase, characterized by repetitive tongue pumping, piece meal clearing, delayed AP transport, and presence of mild oral residue after swallow was completed. Pharyngeal phase was marked by delayed swallow trigger and reduced airway protection, with evidence of deep laryngeal penetration on thin and nectar thick consistencies, with questions of trace subglottic aspiration. Patient displayed reduced tongue base retraction and pooling of residue in the valleculae and pyriforms. Throat [id number] strategy reduced, but did not entirely clear contrast from the airway. Dry swallows decreased residue in the oral and pharyngeal cavities. Therapy Recommendations: Risk of aspiration associated with confusion, impulsivity while feeding, poor sensory response, and weak cough/voice. Recommend re-start on PUREED diet (NDD1) and DOWNGRADE to HONEY THICK liquids, with pills CRUSHED in PUREE. Patient is able to feed himself, however, will need direct supervision and close monitoring at meal time for safety. Provide assistance as needed to ensure containers are opened and accessible. Patient will need consistent cuing for the following strategies: -Take small bites -Dry swallow after bites -Clear oral cavity before taking next bite -Check oral cavity periodically for clearance -Liquids via teaspoon or controlled cup -Avoid straws -Take one small sip at a time -Avoid consecutive sips -Between bites/sips, clear throat and re-swallow -Maintain upright 90 degree position during PO intake and for at least 30 minutes afterwards -Provide daily oral care Therapy will be continued while inpatient for PO trials, monitoring of diet tolerance, training of compensatory strategies, and patient/caregiver education. Patient will need continued speech therapy for the treatment of dysphagia at the next level of care. The following compensatory strategies and/or therapeutic exercises will be part of the upcoming therapy/management plan: Honey-thick Liquid Bolus Volume Change Rate of Ingestion Change Additional Swallow(s) per Bolus Throat Clear Automobile Assembly Supervisor Goals: ? The patient will tolerate the least restrictive diet with a safe/efficient swallow to maintain adequate nutrition and hydration. ? The patient and/or family will participate in further education for swallowing goals. Short Term Goals: ? Diet - The patient will tolerate a pureed diet with honey thick liquids without signs or symptoms of penetration/aspiration 100% of the time. - The patient will participate in therapeutic PO trials with the [employer]. ? Guidelines - The patient will comply with/recall the following guidelines/strategies 100% of the time with minimal cuing: Honey-thick Liquid, Bolus Volume Change, Rate of Ingestion Change, Additional Swallow(s) per Bolus, Throat Clear, No Straws. ? Education - The patient, family, caregiver, nurse will verbalize/demonstrate understanding of the results of this evaluation, the above recommendations, and the swallowing guidelines. Clinician - Supplemental, Miscellaneous Communication: It is important to note MBSS objective studies are snapshots in time and Patient function might vary with factors such as time of day or concomitant medical conditions. For this reason, the final treatment plan for this patient should rest with their medical care team. Additional recommendations should be considered with the totality of the Patient in mind. Thank for the opportunity to participate in the care of this patient. If you have any questions about the content of this report, please contact the [facility] at [facility]. Education: Education regarding findings from today's study and plans for therapy were provided to Patient only through Verbal Instruction. Understanding was expressed by the Patient only. Frequency/Duration: M-F while inpatient Date Range for Service Req: Timeline to reassess: PRN Disk Recordist Clinican/Clinical Fellow: No Supervisory Statement: I have reviewed and agree with the student/clinical fellow's documentation: N/A Speech Language Pathologist: Norah Munoz M.A., CCC-LEAN SENSEI
[2025-05-11 18:41] LABS: Glucose, Whole Blood 149 mg/dL (60-115)
[2025-05-11 19:25] LABS: Band Neutrophils Percent 12 % (3-5); Basophils Abs Manual 0.1 X10*3/uL (0.0-0.2); Basophils Percent Manual 1 % (0-2); Lymphocytes Absolute Manual 1.1 X10*3/uL (1.2-4.9); Lymphocytes Percent Manual 12 % (20-40); Metamyelocytes Absolute 0.1 X10*3/uL; Metamyelocytes Percent 1 %; Monocytes Absolute Manual 1.0 X10*3/uL (0.1-1.2); Monocytes Percent Manual 11 % (2-11); Neutrophils Absolute Manual 6.8 X10*3/uL (2.0-8.3); Neutrophils Percent Manual 63 % (45-73)
[2025-05-11 19:49] LABS: Polychromasia 1+ (0-2) /OIF; RBC Morphology NOTED; Target Cells 1+ (5-14) /OIF
[2025-05-11 19:50] LABS: Macrocytosis 1+ (5-14) /OIF; Microcytosis 1+ (5-14) /OIF
[2025-05-11 19:53] LABS: Tear Drop Cells 1+ (0-2) /OIF
[2025-05-11 19:54] LABS: Toxic Vacuolation PRESENT
[2025-05-11] MEDS: Parenteral Nutrition 1,680 ML 70 ML IV (21:17)
[2025-05-11] MEDS: Ipratropium Bromide 0.5 MG/2.5 ML SOLUTION INHALE (21:52)
--- NOTE | 2025-05-11 23:21 | PM.EVENT ---
Event Note Date of Service: 05/12/25 Event Note: Notified by nursing that patient has some changes with his lung sounds to include wheezing bilaterally. Patient has a sitter at his side and per nursing since patient has started doing ice chips earlier in the day, his lung sounds have gotten worse. Pt currently has regular diet ordered along with PPN. Patient has been in the hospital for multiple days with evidence of issues related to dysphagia and workup. Patient is also developing a temp, 100.0 and has been tachycardic for the last 2 days. EKG remains negative for any ischemic changes. Decision made to draw blood cultures X2, make patient NPO and add additional labs to include VBG, BNP, CBC, BMP and lactic acid. Those orders have been reviewed with nursing and further assessment will be needed in the a.m. to include possible reassessment by speech therapy. Patient continues with the PPN as ordered. Tylenol given for temp. VBG 7.54, 25, 68, 22, LA 1.2, BNP 1108 (was 2882), WBC 10.7, Bandemia 7, H/H 8.2/24.8, Na 132, renal fx stable. CXR notes per radiologist: Overall worsening appearance of the chest with increasing streaky densities and small bilateral pleural effusions. This can be seen with volume overload or bilateral pneumonitis. Lasix 10 mg IV X1 administered. Pt started on UNASYN for suspected aspiration. BC drawn prior to ABX administration. IS added when able. Time Spent With Patient Time: Total time managing care of this patient today ____ minutes.
[2025-05-11] MEDS: Ampicillin Sodium/Sulbactam Na 1.5 GM in 0.9 % Sodium Chloride 100 ML IV (23:52)
[2025-05-12] VITALS (13 sets, daily range): BP systolic 104–136; BP diastolic 56–69; PULSE 82–120; RESP 14–26; TEMP 36.2–36.9; O2SAT 89–97; BMI 26.1
[2025-05-12 00:02] LABS: Venous Blood Gas Refer to POC result
[2025-05-12 00:08] LABS: Hematocrit 24.8 % (42.0-52.0); Hemoglobin 8.2 g/dl (14.0-18.0); Mean Corpuscular HGB Conc 33.1 g/dl (31.0-36.0); Mean Corpuscular Hemoglobin 34.0 pg (27.0-33.0); Mean Corpuscular Volume 102.9 fL (80.0-98.0); NRBC Abs Auto 0.000 X10*3/uL (0.0-0.012); NRBC Pct Auto 0.0 /100WBC (0.0-0.2); Platelet Count 123 X10*3/uL (160-400); Red Blood Count 2.41 X10*6/uL (4.60-5.80)
[2025-05-12 00:08] LABS: VBG HCO3 22 mmol/L (22-26); VBG O2 % Saturation 93.0 %
[2025-05-12 00:15] LABS: WBC ABN SCTR FOR CBC 1
[2025-05-12 00:18] LABS: Glucose, Whole Blood 138 mg/dL (60-115)
[2025-05-12 00:23] LABS: Anion Gap 11 (12-20); Blood Urea Nitrogen 21 mg/dL (9-16); Calcium 8.4 mg/dL (8.4-10.2); Carbon Dioxide 19 mmol/L (22-29); Chloride 106 mmol/L (96-108); Creatinine Clr Calc Pharmacy 96.9; Estimated Glomerular Filt Rate > 60; Potassium 4.2 mmol/L (3.3-5.1); Sodium 132 mmol/L (135-145)
[2025-05-12 00:27] LABS: NT Pro B Type Natriuretic Pept 1108.2 pg/mL (<300)
[2025-05-12] MEDS: Furosemide 20 MG/2 ML VIAL 10 MG IVPUSH (00:42)
[2025-05-12 01:13] LABS: White Blood Count 10.7 X10*3/uL (4.8-10.8)
[2025-05-12 01:14] LABS: Band Neutrophils Percent 7 % (3-5); Lymphocytes Absolute Manual 1.1 X10*3/uL (1.2-4.9); Lymphocytes Percent Manual 10 % (20-40); Metamyelocytes Absolute 0.2 X10*3/uL; Metamyelocytes Percent 2 %; Monocytes Absolute Manual 1.0 X10*3/uL (0.1-1.2); Monocytes Percent Manual 9 % (2-11); Neutrophils Absolute Manual 8.5 X10*3/uL (2.0-8.3); Neutrophils Percent Manual 72 % (45-73)
[2025-05-12 01:15] LABS: Macrocytosis 1+ (5-14) /OIF; RBC Morphology NOTED; Tear Drop Cells 1+ (0-2) /OIF; Toxic Vacuolation PRESENT
--- NOTE | 2025-05-12 02:49 | PC.NURSE ---
At 2130 Pt was coughing a dry cough and felt short of breath. Upon auscultation to lungs fine crackles and inspratory and expiratory wheezing heard bilaterally. Vitals obtained and documented. [facility] notified, orders received for stat ECG, lab draws, stat xray, antibiotic, and IV lasix.
[2025-05-12] MEDS: Ampicillin Sodium/Sulbactam Na 1.5 GM in 0.9 % Sodium Chloride 100 ML IV ×4 (05:40→23:38)
[2025-05-12 06:19] LABS: Glucose, Whole Blood 138 mg/dL (60-115)
--- NOTE | 2025-05-12 06:31 | HO.SKINPHOTO ---
Location: Coccyx Category: Stage: Length: Width: Depth: cm
[2025-05-12 06:38] LABS: Anion Gap 13 (12-20); Blood Urea Nitrogen 20 mg/dL (9-16); Calcium 8.2 mg/dL (8.4-10.2); Carbon Dioxide 21 mmol/L (22-29); Chloride 104 mmol/L (96-108); Creatinine Clr Calc Pharmacy 104.3; Estimated Glomerular Filt Rate > 60; Magnesium 1.6 mg/dL (1.6-2.6); Potassium 3.8 mmol/L (3.3-5.1); Sodium 134 mmol/L (135-145)
--- NOTE | 2025-05-12 08:34 | PC.NURSE ---
Patient tachypneic, tachycardic and spO2 89% on room air. Auscultated wheeze. Respiratory therapy called to bedside, provider Damon notified via tigerconnect. Breathing treatment administer by RT.
[2025-05-12] MEDS: Thiamine HCL 100 MG in 0.9 % Sodium Chloride 100 ML 202 MG IV (08:55)
[2025-05-12] MEDS: 0.9 % Sodium Chloride Flush 3 ML SYRINGE IVFLUSH ×3 (08:58→21:45)
[2025-05-12] MEDS: Albuterol/Iprat 2.5/0.5MG 3 ML AMPUL.NEB INHALE ×3 (11:16→20:31)
[2025-05-12 11:43] LABS: Glucose, Whole Blood 177 mg/dL (60-115)
--- NOTE | 2025-05-12 12:00 | MHC.SL.SWA ---
Speech Pathologist Impression: Moderate Oropharyngeal Dsyphagia Risk of Aspiration Due to: Medically Fragile Hx of Recent Extubation Reduced Cognition Weak Cough Weak Voice Dysphasia Diet Status: Recommend RESTART diet of NDD1, HONEY THICK Liquids. DISCONTINUE allowance of ice chips. EVERYTHING by spoon. Liquid Consistency and Strategies for Safe Swallow: Liquid Intake Recommendation: Honey Thick Liquid Intake Strategies: No Straws Double Swallow Liquids by Teaspoon Only Solid Food Consistency: Dietary Recommendations: Pureed (NDD1) Additional Modifications to Solid Foods: Oral Medication Intake: Crushed with Puree Please contact the pharmacy regarding appropriate crushable or liquid drug formulations that are available whenever modified delivery is recommended. Compensatory Strategies and Precautions to be Taken for Safe Swallow: Sitting Upright (90 deg) Double Swallow No Straw Liquids from Spoon Small Bites and Sips Rate of Ingestion Change Supervision While Eating and Drinking for Safe Swallow: Total Assistance (1:1) Foods to Avoid: Tough, difficult to chew solids, dry crunchy textures. Swallowing Recommended Treatments: Compens. Strategy Educat. Recommendation for Speech: Inpatient Speech Therapy Speech Therapy through Rehab Facility Comment: Patient seen for re-evaluation of swallowing this date. Per MD event note: Notified by nursing that patient has some changes with his lung sounds to include wheezing bilaterally. Patient has a sitter at his side and per nursing since patient has started doing ice chips earlier in the day, his lung sounds have gotten worse. Pt currently has regular diet ordered along with PPN. Patient has been in the hospital for multiple days with evidence of issues related to dysphagia and workup. Patient is also developing a temp, 100.0 and has been tachycardic for the last 2 days. EKG remains negative for any ischemic changes. Decision made to draw blood cultures X2, make patient NPO and add additional labs to include VBG, BNP, CBC, BMP and lactic acid. Those orders have been reviewed with nursing and further assessment will be needed in the a.m. to include possible reassessment by speech therapy. Patient continues with the PPN as ordered. Tylenol given for temp. Patient's CXR results: Overall worsening appearance of the chest with increasing streaky densities and small bilateral pleural effusions. This can be seen with volume overload or bilateral pneumonitis. Patient given HTL and pureed solids by spoon and cup sip this date. Oral care with mouthwash on oral swab completed prior to PO trials. Patient's lingual wound improving; continued overall dryness in oral cavity and lips resulting in scabbing. Patient with no overt s/sx of penetration/aspiration with trials of puree (applesauce) and HTLs (cranberry juice and water). However, patient with noticeable respiratory changes since previous treatment; noted increased efforts for breathing/wheezing and very weak voice/cough noted. Patient impulsive with cup sips requiring HOUSEKEEPER NANNY to tilt back cup to stop patient from drinking excessively. Due to impulsivity and new respiratory symptoms, recommend everything by spoon- both HTLs and purees with 1:1 feeding assistance to ensure safety. Recommend RESTART diet of NDD1 (pureed), HONEY THICK Liquids; EVERYTHING by spoon; DISCONTINUE allowance of ice chips; 1:1 feeding assistance. HOUSEKEEPER NANNY to continue to follow. Diet recommendations communicated to , RN, RD via secure chat. Frequency/Duration: M-F while inpatient Date Range for Service Req: Timeline to reassess: PRN Typing Teacher Clinican/Clinical Fellow: No Supervisory Statement: I have reviewed and agree with the student/clinical fellow's documentation: N/A Speech Language Pathologist: Sultana Givens M.A., CCC-HOUSEKEEPER NANNY
[2025-05-12] MEDS: Furosemide 40 MG/4 ML VIAL IVPUSH (16:46)
[2025-05-12 18:13] LABS: Glucose, Whole Blood 162 mg/dL (60-115)
--- NOTE | 2025-05-12 19:28 | PC.NURSE ---
Patient continues to be tachycardic and tachypneic and complaining of SOB, SpO2 95%. Patient is very weak, hoarse; quiet speech and very weak cough. Provider Damon aware.
[2025-05-12] MEDS: Parenteral Nutrition 1,680 ML 70 ML IV (21:38)
--- NOTE | 2025-05-12 21:54 | PM.EVENT ---
Event Note Date of Service: 05/12/25 Event Note: Nursing notified this scientific writer that after pt has been using periwick unsuccessfully due to macerated skin in the perineal area, requesing wilson as pt can no longer bear the skin issues noting pt is chronically incontinent. Wilson order placed and nursing indicated wound care is already following. Time Spent With Patient Time: Total time managing care of this patient today ____ minutes.
[2025-05-12 23:57] LABS: Glucose, Whole Blood 163 mg/dL (60-115)
[2025-05-13] VITALS (19 sets, daily range): BP systolic 102–125; BP diastolic 56–89; PULSE 105–115; RESP 14–25; TEMP 36.2–37.4; O2SAT 89–96; BMI 27.6
[2025-05-13] MEDS: diazePAM 10 MG/2 ML CARTRIDGE 5 MG IVPUSH (01:04)
[2025-05-13] MEDS: Ampicillin Sodium/Sulbactam Na 1.5 GM in 0.9 % Sodium Chloride 100 ML IV ×2 (05:38→12:04)
[2025-05-13 05:59] LABS: Glucose, Whole Blood 141 mg/dL (60-115)
[2025-05-13 07:27] LABS: Alanine Aminotransferase 151 U/L (0-40); Albumin Level 2.5 g/dL (3.5-5.0); Alkaline Phosphatase 223 U/L (39-117); Anion Gap 13 (12-20); Aspartate Amino Transferase 408 U/L (5-37); Blood Urea Nitrogen 20 mg/dL (9-16); Calcium 8.3 mg/dL (8.4-10.2); Carbon Dioxide 23 mmol/L (22-29); Chloride 102 mmol/L (96-108); Creatinine Clr Calc Pharmacy 102.1; Estimated Glomerular Filt Rate > 60; Magnesium 1.6 mg/dL (1.6-2.6); Potassium 3.4 mmol/L (3.3-5.1); Sodium 135 mmol/L (135-145); Total Protein 7.2 g/dL (6.5-8.0)
[2025-05-13] MEDS: 0.9 % Sodium Chloride Flush 3 ML SYRINGE IVFLUSH (08:02)
[2025-05-13] MEDS: Albuterol/Iprat 2.5/0.5MG 3 ML AMPUL.NEB INHALE ×3 (08:14→15:09)
[2025-05-13] MEDS: Thiamine HCL 100 MG in 0.9 % Sodium Chloride 100 ML 202 MG IV (09:37)
--- NOTE | 2025-05-13 10:42 | HO.PM.IMPN ---
Subjective Subjective Date of Service: 05/13/25 Interval History: Condition remains largely unchanged, talking in low voice,a a wilson catheter was put in maintain skin integrity Physical Exam Vital Signs: Vital Signs: Last Vital Signs Temp 97.1 F 05/13/25 07:41 Pulse 110 H 05/13/25 08:15 Resp 18 05/13/25 08:15 BP 122/89 05/13/25 07:41 Pulse Ox 92 05/13/25 07:41 O2 Del Method Room Air 05/13/25 07:41 O2 Flow Rate 1 05/06/25 03:18 FiO2 35 04/28/25 12:00 BMI result Body Mass Index 27.6 Const: Other: General: Alert less confused, no acute distress HEENT-has a laceration of the tongue,appears old and no sings of active bleeding Resp: CTA bilateral CVS: S1,S2,RRR GI: +BS, NT, mild distention, Skin: No rash Neuro: motor grossly intact Psych: appropriate affect Objective Data Active Medications Albuterol/Ipratropium (Albuterol/Iprat 2.5/0.5mg 3 Ml Ampul.Neb) 3 ml INHALE RQ4H WHILE AWAKE [facility] Last Admin: 05/13/25 08:14 Dose: 3 ml Documented By: BABS Dextrose (Dextrose 50 % 25 Gm/50 Ml Syringe) 25 gm IVPUSH Q15M PRN; Protocol PRN Reason: per Hypoglycemia Standing Ord. Glucose (Glucose Gel 15 Gm Gel..Gram.) 15 gm PO Q15M PRN; Protocol PRN Reason: per Hypoglycemia Standing Ord. Heparin Sodium (Porcine) (Heparin Sodium,Porcine 5,000 Unit/Ml Vial) 5,000 unit SUBCUT BID DAMIÁN On Hold: 05/06/25 10:10 Last Admin: 05/06/25 08:13 Dose: 5,000 unit Documented By: LILIANA Thiamine HCl 100 mg/ Sodium (Chloride) 101 mls @ 202 mls/hr IV DAILY [facility] Last Infusion: 05/13/25 10:07 Dose: Infused Documented By: NOLVIA Folic Acid 1 mg/ Sodium (Chloride) 50.2 mls @ 100.4 mls/hr IV DAILY [facility] Last Infusion: 05/13/25 08:38 Dose: Infused Documented By: NOLVIA Ampicillin Sodium/Sulbactam (Sodium 1.5 gm/ Sodium Chloride) 100 mls @ 200 mls/hr IV Q6H [facility] Last Infusion: 05/13/25 06:08 Dose: Infused Documented By: HAILEE Nutrition (Parenteral) (Parenteral Nutrition) 1,680 mls @ 70 mls/hr IV .Q24H DAMIÁN; Protocol Stop: 05/13/25 20:59 Last Infusion: 05/13/25 10:07 Dose: 70 mls/hr Documented By: NOLVIA Nutrition (Parenteral) (Parenteral Nutrition) 1,680 mls @ 70 mls/hr IV .Q24H DAMIÁN; Protocol Stop: 05/15/25 02:59 Insulin Human Lispro (Insulin Lispro 100 Unit/Ml 3 Ml Vial) 0 unit SUBCUT Q6H DAMIÁN; Protocol Last Admin: 05/13/25 05:59 Dose: Not Given Documented By: HAILEE Non-Admin Reason: No Insulin Coverage Nystatin (Nystatin Powder 15 Gm Bottle) 1 appl TOPICAL BID [facility]; Protocol Last Admin: 05/13/25 09:37 Dose: 1 appl Documented By: NOLVIA Ondansetron HCl (Ondansetron Hcl 4 Mg/2 Ml Vial) 4 mg IVPUSH Q8H PRN PRN Reason: Nausea and Vomiting Last Admin: 05/05/25 17:38 Dose: 4 mg Documented By: LILIANA Pantoprazole Sodium (Pantoprazole Sodium 40 Mg/10 Ml Vial) 40 mg IVPUSH DAILY@0630 [facility] Last Admin: 05/13/25 05:32 Dose: 40 mg Documented By: HAILEE Pharmacy Consult (Consult Rx Parenteral Nutrition Ordering) 1 each MISCELLANE DAILY PRN PRN Reason: Consult order Sodium Chloride (0.9 % Sodium Chloride Flush 3 Ml Syringe) 3 ml IVFLUSH QSHIFT [facility] Last Admin: 05/13/25 08:02 Dose: 3 ml Documented By: NOLVIA Labs 05/13/25 13:18 05/13/25 05:52 Labs: Laboratory Results - last 24 hr 05/12/25 05/12/25 05/12/25 11:40 18:09 23:53 Anion Gap Estim Creat Clear Calc Estimated GFR POC Glucose 177 H 162 H 163 H Random Glucose Calcium Phosphorus Magnesium Total Bilirubin AST ALT Alkaline Phosphatase Total Protein Albumin 05/13/25 05/13/25 05:52 05:55 Anion Gap 13 Estim Creat Clear Calc 102.1 Estimated GFR > 60 POC Glucose 141 H Random Glucose 144 H Calcium 8.3 L Phosphorus 4.5 Magnesium 1.6 Total Bilirubin 3.5 H AST 408 H ALT 151 H Alkaline Phosphatase 223 H Total Protein 7.2 Albumin 2.5 L Microbiology Microbiology Results: Microbiology 05/11/25 23:53 Blood Culture - Preliminary Blood - Venous No growth after 24 hours. 05/11/25 23:53 Blood Culture - Preliminary Blood - Venous No growth after 24 hours. Assessment and Plan (1) Alcohol withdrawal: Status: Acute (2) End stage liver disease: Status: Acute (3) Upper GI bleed: Status: Acute (4) Acute and chronic respiratory failure with hypoxia: Status: Acute (5) Pneumonia: Status: Acute Plan 64-year-old gentleman with underlying history of alcohol abuse with prior alcohol withdrawal seizures admitted on 04/16/2025 with mechanical falls and withdrawal seizures with hospital course further complicated by upper GI bleed status post EGD noted gastritis and esophageal webs status post dilation, delirium tremens with dysphagia with aspiration and hypoxic respiratory failure requiring intubation and ventilatory support on 04/21/2025, extubated on 04/28/2025. Presently with rectal tube, now tachycardia, and vomitted. Toxic metabolic encephalopathy secondary to alcohol withdrawal, and likely icu delirium, overall better but still confused at baseline Tachycardia, likely from underlying illness and has been chronic, monitor Acute hypoxic respiratory failure secondary to aspiration with dysphagia requiring intubation, extubated 04/28/2025. No longer on abx, and on room air. Pneumonia: Completed antibiotic course for aspiration pneumonia, WBC remains normal, no fever, but may have developped new aspiration pneumona and started on Unasyn continue Diet Per AUTO INSPECTION SPECIALIST. seems more sob today, check BNP, CXR, VBG and IV Lasix as clinically appear wet HypOnateremia, mild monitor Upper GIB, Acute blood loss anemia, status post EGD on 04/19 with portal gastropathy and also esophageal web status post dilation. Has had nausea and vomiting, mild distention on exam, rectal tub in placed. CT small bowel dilatation with no transition pt, N/V stopped, surgery input, unlikely candidate for intervention. Alcoholic liver disease with chronicall elevated LFTs appear stable. Tongue laceration, cause unclear, might have surgery see it, and has been having intermittent bleeding from the mouth, H/H is low but relatively stable. He has laceration mid tongue and some ulcer at corner of mouth with tendency to blee Chronic thrombocytopenia, likely due to hypersplenism from chronic alcoholic liver disease Prophylaxis:Heparin restarted but has to be stopped again due to concern for bleeding has had some old blood around his mouth, compression stocking Diet: TPN and NPO for now in light of new aspiration pneumonia Plan and clincal course discussed with brother over the phone out of bed to chair, PT evla Severely deconditioned, will discuss care going forward with brother and healthcare proxy, Ultimately need to be transition to SNF Total time managing care of this patient today: 80 minutes. Quality Stroke Does the patient have a stroke diagnosis?: No VTE Prior VTE?: No VTE Risk Level:: Medical - moderate - high VTE Device Contraindication: N/A - Device Ordered VTE Drug Contraindication: Treatment Not Tolerated
[2025-05-13 11:54] LABS: Glucose, Whole Blood 185 mg/dL (60-115)
--- NOTE | 2025-05-13 12:35 | PC.NURSE ---
Patient was sitting up in chair and 1:1 came out stating he's complaining of shortness of breath . Nurse went into room, RR 24, spO2 88% on room air, patient encouraged to cough and spO2 increased to 92%. Used sit to stand to get patient back to bed with PCT. Patient back to bed, respiratory rate remains 24 and spO2 qit03-56% on room air, tachycardic. Patient encouarged to cough, cough weak, spO2 did not increase. Patient placed on 2L nasal cannula and encouraged to cough a deep breathe, spO2 increased to 93%, patient still complains of SOB and RR 24 with use of accessory muscles. Patient feel physically hot and is complaining of being cold with shivering, rectal temp checked. Provider Damon made aware via [employer].
[2025-05-13 13:29] LABS: Venous Blood Gas Refer to POC result
[2025-05-13 13:29] LABS: VBG HCO3 25 mmol/L (22-26); VBG O2 % Saturation 100.0 %
[2025-05-13 13:36] LABS: Hemoglobin 7.9 g/dl (14.0-18.0); Mean Corpuscular Hemoglobin 33.8 pg (27.0-33.0); NRBC Abs Auto 0.000 X10*3/uL (0.0-0.012); NRBC Pct Auto 0.0 /100WBC (0.0-0.2); Red Blood Count 2.34 X10*6/uL (4.60-5.80)
[2025-05-13 13:38] LABS: Hematocrit 24.7 % (42.0-52.0); Mean Corpuscular HGB Conc 32.0 g/dl (31.0-36.0); Mean Corpuscular Volume 105.6 fL (80.0-98.0); PLT CLUMP 1
[2025-05-13 13:44] LABS: PLT ABN DIST 1
[2025-05-13 13:45] LABS: Platelet Count 100 X10*3/uL (160-400); White Blood Count 7.8 X10*3/uL (4.8-10.8)
[2025-05-13 13:46] LABS: NT Pro B Type Natriuretic Pept 507.8 pg/mL (<300)
[2025-05-13] MEDS: Furosemide 40 MG/4 ML VIAL IVPUSH (13:59)
--- NOTE | 2025-05-13 14:35 | PC.NURSE ---
Constant tire repair mechanic came out expressing patient was spitting up blood , upon assessment sprayed pattern of blood noted on blanket and bleeding present in mouth. Provider Damon notified via [employer]. Vital signs assessed.
--- NOTE | 2025-05-13 15:43 | MHC.CM.PN ---
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 Addendum entered by Yuli No RN 05/13/25 15:48: Per MD, HCP invoked. Original Note: Per MD, goals of care conversation w/ HCP/brother Donald w/ plan to pursue hospice. This CM called HCP to discuss. He is unable to care for patient and would prefer SNF on hospice. Patient has Amind, will need to verify type of coverage. Referrals updated w/ new plan. Sent request to [facility] for GIP evaluation, per MD request. Awaiting response. CM will continue to follow.
--- NOTE | 2025-05-13 15:55 | P.ACPN_ITS ---
Advanced Care Planning Note Advanced Care Planning Note Time spent (in minutes): 17 Narrative: This 64-year-old male with a history of alcohol abuse, alcoholic liver disease, and prior withdrawal seizures has been hospitalized for 27 days following admission for mechanical falls and withdrawal seizures. His course has been complicated by upper GI bleeding, delirium tremens, aspiration with hypoxic respiratory failure requiring intubation, persistent encephalopathy, recurrent aspiration, ongoing dysphagia, chronic thrombocytopenia, and poor nutritional status. Despite treatment, he remains confused and functionally debilitated, with ongoing bleeding and risk for further decline. After a detailed goals of care discussion with his health care proxy (brother Donald), and confirmation by the RN and assistant case manager, the decision was made to transition to hospice/comfort care. There will be no escalation of care, TPN and life-sustaining medications will be discontinued, and comfort measures (including morphine and benzodiazepines) will be prioritized. The care plan has been updated to reflect these wishes. Health care proxy invoked Problems Discussed (1) Alcohol withdrawal: (2) End stage liver disease: (3) Upper GI bleed: (4) Acute and chronic respiratory failure with hypoxia: (5) Pneumonia:
[2025-05-14 04:49] VITALS: RESP 26
[2025-05-14 05:15] VITALS: RESP 19
[2025-05-14 06:00] VITALS: BMI 27.8
--- NOTE | 2025-05-14 08:31 | MHC.CLN ---
F/U PATIENT STATUS CHANGED TO COMFORT MEASURES ONLY. PPN DISCONTINUED. DIET CONTINUES PUREE WITH HONEY THICK LIQUIDS. CONTINUE TO PROVIDE FOOD PREFERENCES ABLE. RD AVAILABLE NEEDED.
[2025-05-14] MEDS: diazePAM 10 MG/2 ML CARTRIDGE 5 MG IVPUSH (10:50)
[2025-05-14 11:45] LABS: Glucose, Whole Blood 130 mg/dL (60-115)
[2025-05-14 12:00] VITALS: BP 98/52; PULSE 94; RESP 18; TEMP 36.5; O2SAT 92
--- NOTE | 2025-05-14 12:51 | HO.PM.IMPN ---
Subjective Subjective Date of Service: 05/14/25 Interval History: Transitioned to hospice/comfort measures yesterday, no new issues, comfortable Physical Exam Vital Signs: Vital Signs: Last Vital Signs Temp 97.3 F 05/13/25 15:22 Pulse 115 H 05/13/25 15:22 Resp 19 05/14/25 05:15 BP 124/68 05/13/25 15:22 Pulse Ox 92 05/13/25 15:22 O2 Del Method Room Air 05/13/25 15:22 O2 Flow Rate 2 05/13/25 12:30 FiO2 35 04/28/25 12:00 BMI result Body Mass Index 27.8 Const: Other: No distress, comfortable Objective Data Active Medications Acetaminophen (Acetaminophen 325 Mg Tablet) 650 mg PO Q4H PRN PRN Reason: Fever >/= 100, Pain, mild 1-3 Diazepam (Diazepam 10 Mg/2 Ml Cartridge) 5 mg IVPUSH Q4H PRN PRN Reason: anxiety/restlessness Last Admin: 05/14/25 10:50 Dose: 5 mg Documented By: ABDI Docusate Sodium (Docusate Sodium 100 Mg Capsule) 100 mg PO BEDTIME [facility] Last Admin: 05/13/25 21:47 Dose: Not Given Documented By: CEASAR 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-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 Haloperidol Lactate (Haloperidol Lactate 5 Mg/Ml Vial) 2 mg IVPUSH Q4H PRN PRN Reason: Delirium Morphine Sulfate (Morphine Sulfate 4 Mg/Ml Cartridge) 2 mg IVPUSH Q1H PRN PRN Reason: Pain, Severe (7-10)/ RR>/=24 Last Admin: 05/14/25 04:49 Dose: 2 mg Documented By: CEASAR Nystatin (Nystatin Powder 15 Gm Bottle) 1 appl TOPICAL BID DAMIÁN; Protocol Last Admin: 05/14/25 10:50 Dose: 1 appl Documented By: ABDI Ondansetron HCl (Ondansetron Odt 4 Mg Tab.Rapdis) 4 mg TRANSLINGU Q8H PRN PRN Reason: Nausea and Vomiting Scopolamine (Scopolamine 1.5 Mg Patch.Td.3) 1.5 mg TRANSDERMA Q72H [facility] Last Admin: 05/13/25 16:32 Dose: 1.5 mg Documented By: NOLVIA Labs 05/13/25 13:18 05/13/25 05:52 Labs: Laboratory Results - last 24 hr 05/13/25 05/13/25 05/14/25 13:18 13:25 11:25 MCV 105.6 H MCH 33.8 H MCHC 32.0 RDW 21.9 H Plt Count 100 L MPV 13.3 H Absolute Nucleated RBC 0.000 Nucleated RBC % (auto) 0.0 VBG pH 7.51 H VBG pCO2 31 VBG pO2 170 VBG HCO3 25 VBG O2 Saturation 100.0 VBG Base Excess 2.8 POC Glucose 130 H NT-Pro-B Natriuret Pep 507.8 H Blood Type A Negative Antibody Screen NEGATIVE Microbiology Microbiology Results: Microbiology 05/11/25 23:53 Blood Culture - Preliminary Blood - Venous No growth after 48 hours. 05/11/25 23:53 Blood Culture - Preliminary Blood - Venous No growth after 48 hours. Assessment and Plan (1) Alcohol withdrawal: Status: Acute (2) End stage liver disease: Status: Acute (3) Upper GI bleed: Status: Acute (4) Acute and chronic respiratory failure with hypoxia: Status: Acute (5) Pneumonia: Status: Acute Plan This 64-year-old male with a history of alcohol abuse, alcoholic liver disease, and prior withdrawal seizures has been hospitalized for 27 days following admission for mechanical falls and withdrawal seizures. His course has been complicated by upper GI bleeding, delirium tremens, aspiration with hypoxic respiratory failure requiring intubation, persistent encephalopathy, recurrent aspiration, ongoing dysphagia, chronic thrombocytopenia, and poor nutritional status. Despite treatment, he remains confused and functionally debilitated, with ongoing bleeding and risk for further decline. After a detailed goals of care discussion with his health care proxy (brother Donald), and confirmation by the RN and case management specialist, the decision was made to transition to hospice/comfort care. There will be no escalation of care, TPN and life-sustaining medications will be discontinued, and comfort measures (including morphine and benzodiazepines) will be prioritized. The care plan has been updated to reflect these wishes. Health care proxy invoked Plan: continue Hospice/comfort care. Morphine, Valium, Haldol as needed, Adjust for comfor Total time managing care of this patient today: 80 minutes. Quality Stroke Does the patient have a stroke diagnosis?: No VTE Prior VTE?: No VTE Risk Level:: Medical - moderate - high VTE Device Contraindication: N/A - Device Ordered VTE Drug Contraindication: Treatment Not Tolerated
--- NOTE | 2025-05-14 13:38 | HO.WOUND ---
Wound Consult: follow up 64 yr old male admitted to [facility] on 04/16/25 - See progress notes and H&P for detailed history. Wound team following for IAD to buttocks/perineum/groin- direct care RN with concerns for worsening area to buttocks/perineum. Patient agreeable to assessment. Area is improving now with largely intact reddened skin continues with evidence of fungal dermatitis and satellite lesions. Direct care nurse to obtain new Nystatin powder for bedside use. Concern also voiced for increase and evolving mouth sores. Unclear etiolgy - provider to assess for atypical thrush and or ID for assessment for unknown etiology. 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 Tongue Lips Unclear etiology - provider to assess for thrush and or systemic treatment. Provider to consider ID consult for etiology. Central tongue area with dried scabbed wound bed - palate noted for buildup unclear if wound bed or dried drainage. Swelling and redness noted to tongue with smooth surface. Lips noted for ulceration with slough / moist scabs noted at corners. Pain and tenderness reported. At this time defer Etiology, recommendations and further treatment to providers. Penis assessed for MASD - The patient has frequent incontinence - - no open wounds noted to penis and shaft at this time. now with wilson catheter 05/01/25 05/03/25 Buttocks 05/14/25 Etiology: MASD/IAD Wound Bed: dry red satellite lesions noted bilateral buttocks and bilateral groin/scrotum/perineum Drainage / Odor: none Janet wound: ? No Induration, Fluctuance or Warmth noted Pain: Goals of Treatment: ? moisture barrier and antifungal Recommendations: 1. Turn and Reposition every 2 hours and as needed for patient comfort. Use pillows or wedges to support off loading positions. 2. Off Load all bony prominences with use of pillows and heel boots if needed. Apply Preventative foams where needed. 3. Monitor for incontinence and moisture control, use barrier creams when needed for prevention and treatment. 4. Provide adequate and supplemental nutrition. 5. Order or Continue low air loss mattress. 6. When applicable maintain blood glucose levels per Providers order. Buttock/coccyx: Off Load Pressure with Q2 hr turns and use of pillows - Cleanse with PH balance spray or wipes, pat dry. ?Apply antifungal power to assist with moisture management.? Be sure to dust of excess powder to prevent caking on skin and in folds. Apply per provider orders. Apply thin layer of Triad to wound bed. Do not remove all of paste between applications as this may cause further skin damage.? Bilateral heels: Elevate heels off bed with pillows and preventative foam dressing in place, peel back and assess Q shift and change every 5-7 days and PRN. Lips: routine mouth care with oral moisturizer - Defer to providers for treatment plan. Re-consult wound care Nurse for wound deterioration or wound changes.
[2025-05-14 15:26] VITALS: BP 90/57; PULSE 96; RESP 18; TEMP 36.8; O2SAT 92
--- NOTE | 2025-05-14 16:09 | MHC.CM.PN ---
EMR REVIEWED AND PT HAD A GIP ASSESSMENT, PT DOES NOT QUALIFY FOR GIP. [facility] IS ACCEPTING PT AND PT ACCEPTS BED OFFER AND POSSIBLY HOSPICE CARE IN THE SNF. [facility] WILL FOLLOW FOR PLAN. PT WILL HAVE REPEAT ALBUMIN/TOTAL PROTEIN. CM WILL CONTINUE TO FOLLOW FOR ANY CHANGE TO PLAN.
[2025-05-14 16:45] LABS: Glucose, Whole Blood 105 mg/dL (60-115)
[2025-05-14 20:00] VITALS: RESP 16
[2025-05-14 23:24] VITALS: RESP 16
[2025-05-15 03:27] VITALS: RESP 16
[2025-05-15 04:00] VITALS: RESP 25
[2025-05-15 05:44] VITALS: BMI 27.0
[2025-05-15 06:48] LABS: Albumin Level 2.3 g/dL (3.5-5.0); Total Protein 6.7 g/dL (6.5-8.0)
[2025-05-15 08:00] VITALS: RESP 15
--- NOTE | 2025-05-15 10:51 | MHC.CM.PN ---
Patient medically cleared for dc to SNF on hospice. Reviewed w/ brother/HCP Donald, who has accepted a bed at [facility]. BLS transport booked for 3pm. Ginnyer, BASIA/MD CHENG and RN aware. IMM delivered.
--- NOTE | 2025-05-15 12:08 | PC.NURSE ---
Plan to D/C pt to SNF with [facility] in place per MD.
[2025-05-15] MEDS: diazePAM 10 MG/2 ML CARTRIDGE 5 MG IVPUSH (13:54)
--- NOTE | 2025-05-15 14:24 | P.DS_ITS ---
DS: Providers Provider Date of Service: 05/15/25 Date of admission: 04/16/25 19:18 Date of discharge: 05/15/25 Primary care physician: Nisha Schwartz MD DS: Diagnosis Discharge Diagnosis (1) Alcohol withdrawal: Status: Acute (2) End stage liver disease: Status: Acute (3) Upper GI bleed: Status: Acute (4) Acute and chronic respiratory failure with hypoxia: Status: Acute (5) Pneumonia: Status: Acute DS: Summary Hospital Course Hospital Course: This 64-year-old male with a history of alcohol abuse, alcoholic liver disease, and prior withdrawal seizures has been hospitalized for 27 days following admission for mechanical falls and withdrawal seizures. His course has been complicated by upper GI bleeding, delirium tremens, aspiration with hypoxic respiratory failure requiring intubation, persistent encephalopathy, recurrent aspiration, ongoing dysphagia, chronic thrombocytopenia, and poor nutritional status. Despite treatment, he remains confused and functionally debilitated, with ongoing bleeding and risk for further decline. - PROBLEM LIST DURING INPATIENT STAY - Toxic metabolic encephalopathy secondary to alcohol withdrawal, and likely icu delirium, overall better but still confused at baseline - Acute hypoxic respiratory failure secondary to aspiration with dysphagia requiring intubation, extubated 04/28/2025. No longer on abx, and on room air. - Pneumonia: Completed antibiotic course for aspiration pneumonia, WBC remains normal, no fever, but may have developped new aspiration pneumona and started on Unasyn continue - Diet Per CLERK MANAGER. - Acute CHF exacerbation requiring IV furosemide - Upper GIB, Acute blood loss anemia, status post EGD on 04/19 with portal gastropathy and also esophageal web status post dilation. Has had nausea and vomiting, mild distention on exam, rectal tub in placed. CT small bowel dilatation with no transition pt, - N/V stopped, surgery input, unlikely candidate for intervention. Alcoholic liver disease with chronicall elevated LFTs appear stable. - Tongue laceration, cause unclear, might have surgery see it, and has been having intermittent bleeding from the mouth, H/H is low but relatively stable. 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 There will be no escalation of care, TPN and life-sustaining medications will be discontinued, and comfort measures (including morphine and benzodiazepines) will be prioritized. The care plan has been updated to reflect these wishes. Health care proxy invoked. PLAN: continue Hospice/comfort care. Morphine, Valium, Haldol as needed, Adjust for comfort Time Attestation Total time managing care of this patient today: 45 mintues. Discharge Coordination Time (in mins): 35 Quality: Safe Use of Opioids Does Pt have an Active Cancer Diagnosis on the Problem List?: No Quality: Stroke Does the patient have a stroke diagnosis?: No Physical Exam Exam: Exam: General: Alert , persistent confusion to place, time and situation. No acute distress HEENT-has a laceration of the tongue,appears old and no sings of active bleeding Resp: CTA bilateral CVS: S1,S2,RRR GI: +BS, NT, mild distention, Skin: No rash Neuro: motor grossly intact Psych: appropriate affect Vital Signs: Vital Signs: Last Vital Signs Temp 98.3 F 05/14/25 15:26 Pulse 96 05/14/25 15:26 Resp 15 05/15/25 08:00 BP 90/57 L 05/14/25 15:26 Pulse Ox 92 05/14/25 15:26 O2 Del Method Room Air 05/14/25 15:26 O2 Flow Rate 2 05/13/25 12:30 FiO2 35 04/28/25 12:00 BMI result Body Mass Index 27.0 DS: Data Data Completed and Pending Completed studies during hospitalization [Text1]: Procedures Detoxification Services for Substance Abuse Treatment (01/05/23) Dilation of Esophagus, Via Natural or Artificial Opening Endoscopic (01/05/23) Excision of Duodenum, Via Natural or Artificial Opening Endoscopic, Diagnostic (01/05/23) Excision of Esophagus, Via Natural or Artificial Opening Endoscopic, Diagnostic (01/05/23) Replacement of Left Hip Joint with Synthetic Substitute, Uncemented, Open Approach (12/17/20) Labs on day of discharge: Laboratory Results - last 24 hr 05/14/25 05/15/25 16:32 06:09 Hold Purple Top SEE NOTE POC Glucose 105 Total Protein 6.7 Albumin 2.3 L Preliminary micro results at discharge 05/11/25 23:53 Blood Culture - Preliminary Blood - Venous No growth after 48 hours. 05/11/25 23:53 Blood Culture - Preliminary Blood - Venous No growth after 48 hours. Discharge Plan Discharge Anticipated Discharge Date/Time: 05/15/25 14:29 Patient Disposition: Hospice - Medical Facility Discharge Diagnosis: Hypoxic hypercarbic respiratory failure, acute GI bleed, chronic thrombocytopenia and setting of hepatic cirrhosis, ETOH withdrawal seizures, toxic and metabolic encephalopathy, currently transitioned to [employer] Referrals: Nisha Schwartz MD [Primary Care Provider, Medical] - 1 Week Discharge Medications: New morphine concentrate 100 mg/5 mL (20 mg/mL) solution 5 mg PO Q3H PRN (Reason: pain/comfort) 15 Days Qty: 30 0RF Rx Instructions: Partial Fill upon patient request. scopolamine base 1 mg over 3 days patch 3 day 1 patch transdermal Q72H 12 Days Qty: 4 0RF Rx Instructions: 1 patch behind ear Q72H for secretions lorazepam [Lorazepam Intensol] 2 mg/mL concentrate 0.5 mg PO Q4H PRN (Reason: anxiety/restlessness) Qty: 30 0RF haloperidol lactate 2 mg/mL Concentrate 1 mg PO Q6H PRN (Reason: Agitation/restlessness) 7 Days Qty: 15 1RF Discharge Orders: Discharge Order (Routine); Ordered 05/15/25 Ordered By: Mars Vidales Diet: Advance to usual diet Activity on Discharge: As tolerated Stand Alone Forms: Patient Portal Discharge page Print Language: Thai Care Plan Goals: As above Health Concerns: Transitioned to hospitalist Plan of Treatment: Focus on quality of life as opposed to quantitative care Assessment: Highly complex medical morbidity, with highly complex medical admission, transitioned to [employer]
[2025-05-15 15:01] VITALS: RESP 21
== END 2025-05-15 15:15 | disposition hospice, inpatient (51) | DRG 870 ==
LOC: HO.ED 19:18 → HO.EDOVER 19:22 → HO.IMC 04-17 17:24 → HO.ICU 04-21 07:53 → HO.IMC 04-30 10:37 → HO.S3 05-05 13:14
PROVIDERS: Emergency Medicine; Family Medicine; Hospitalist; Internal Medicine; Internal Medicine Critical Care Medicine; Internal Medicine Pulmonary Disease; Nurse Practitioner Family; Physician Assistant; Physician Assistant Medical; Admitting Provider Student in an Organized Health Care Education/Training Program; Emergency Provider Emergency Medicine Emergency Medical Services; PCP Internal Medicine; Visit Provider Hospitalist
PROC: 0DJ08ZZ Inspection of Upper Intestinal Tract, Via Natural or Artificial Opening Endoscopic (ICD-10-PCS; CPT 43235; principal; 2025-04-18 09:20)
DX: A41.9 Sepsis, unspecified organism (principal); G92.8 Other toxic encephalopathy; J69.0 Pneumonitis due to inhalation of food and vomit; R57.0 Cardiogenic shock; K22.11 Ulcer of esophagus with bleeding; J80 Acute respiratory distress syndrome; K76.7 Hepatorenal syndrome; E87.1 Hypo-osmolality and hyponatremia; F10.239 Alcohol dependence with withdrawal, unspecified; K76.6 Portal hypertension; D68.4 Acquired coagulation factor deficiency; D62 Acute posthemorrhagic anemia; F05 Delirium due to known physiological condition; E87.6 Hypokalemia; K31.89 Other diseases of stomach and duodenum; Z66 Do not resuscitate; R65.20 Severe sepsis without septic shock; N28.9 Disorder of kidney and ureter, unspecified; D69.59 Other secondary thrombocytopenia; K46.9 Unspecified abdominal hernia without obstruction or gangrene; K70.11 Alcoholic hepatitis with ascites; Z51.5 Encounter for palliative care; D73.1 Hypersplenism; E83.42 Hypomagnesemia; F17.210 Nicotine dependence, cigarettes, uncomplicated; K70.31 Alcoholic cirrhosis of liver with ascites; Z71.6 Tobacco abuse counseling; K22.89 Other specified disease of esophagus; D63.8 Anemia in other chronic diseases classified elsewhere; Z20.822 Contact with and (suspected) exposure to COVID-19; Z79.899 Other long term (current) drug therapy
CPT/HCPCS: 36415; 36600; 70450; 70553; 71045; 71275; 72125; 74176; 74230; 76705; 80048; 80053; 80076; 80307; 81003; 82040; 82140; 82272; 82550; 82607; 82746; 82803; 82947; 83540; 83605; 83690; 83735; 83880; 84100; 84145; 84155; 84478; 84484; 85007; 85014; 85018; 85025; 85027; 85379; 85610; 86140; 86850; 86900; 86901; 86923; 87040; 87147; 87205; 87493; 87635; 87640; 87641; 92526; 92610; 92611; 93005; 93306; 94002; 94003; 94799; 97162; 97166; 97530; 97535; 99285; A9585; C1769; J0131; J0295; J0696; J1644; J1808; J1836; J1938; J2003; J2250; J2270; J2354; J2371; J2405; J2470; J2543; J2560; J2704; J3360; J3373; J3374; J3411; J3430; J3475; J3480; J7120; P9016; P9017; P9047; P9073; Q9967

== ENCOUNTER → 2025-04-16 14:10 | Outpatient (BNV) | payer MEDICARE, MEDICAID, SELFPAY | PROVIDERS: Emergency Provider Emergency Medicine Emergency Medical Services; PCP Internal Medicine; Visit Provider Student in an Organized Health Care Education/Training Program | DX: F10.939 Alcohol use, unspecified with withdrawal, unspecified (principal); K72.10 Chronic hepatic failure without coma; K92.2 Gastrointestinal hemorrhage, unspecified; J96.21 Acute and chronic respiratory failure with hypoxia; J18.9 Pneumonia, unspecified organism | CPT/HCPCS: 99233 ==

== ENCOUNTER → 2025-04-16 14:33 | Outpatient (BNV) | payer MEDICARE, MEDICAID, SELFPAY | PROVIDERS: Emergency Provider Emergency Medicine; PCP Internal Medicine; Visit Provider Radiology Diagnostic Radiology | DX: M47.812 Spondylosis without myelopathy or radiculopathy, cervical region (principal); I25.10 Atherosclerotic heart disease of native coronary artery without angina pectoris; J32.3 Chronic sphenoidal sinusitis | CPT/HCPCS: 70450; 72125 ==

== ENCOUNTER → 2025-04-16 14:33 | Outpatient (BNV) | payer MEDICARE, MEDICAID, SELFPAY | PROVIDERS: Emergency Provider Emergency Medicine; PCP Internal Medicine; Visit Provider Internal Medicine Cardiovascular Disease | DX: R00.0 Tachycardia, unspecified (principal) | CPT/HCPCS: 93010 ==

== ENCOUNTER 2025-04-16 19:18 | Outpatient (BNV) | payer MEDICARE, MEDICAID, SELFPAY | END 2025-04-26 16:52 | PROVIDERS: Admitting Provider Student in an Organized Health Care Education/Training Program; Emergency Provider Emergency Medicine Emergency Medical Services; PCP Internal Medicine; Visit Provider Radiology Diagnostic Radiology | DX: G93.40 Encephalopathy, unspecified (principal) | CPT/HCPCS: 70553 ==

== ENCOUNTER 2025-04-16 19:18 | Outpatient (BNV) | payer MEDICARE, MEDICAID, SELFPAY | END 2025-05-09 12:05 | PROVIDERS: Admitting Provider Student in an Organized Health Care Education/Training Program; Emergency Provider Emergency Medicine Emergency Medical Services; PCP Internal Medicine; Visit Provider Radiology Diagnostic Ultrasound | DX: R91.8 Other nonspecific abnormal finding of lung field (principal) | CPT/HCPCS: 71045 ==

== ENCOUNTER 2025-04-16 19:18 | Outpatient (BNV) | payer MEDICARE, MEDICAID, SELFPAY | END 2025-05-11 14:10 | PROVIDERS: Admitting Provider Student in an Organized Health Care Education/Training Program; Emergency Provider Emergency Medicine Emergency Medical Services; PCP Internal Medicine; Visit Provider Internal Medicine Cardiovascular Disease | DX: R00.0 Tachycardia, unspecified (principal) | CPT/HCPCS: 93010 ==

== ENCOUNTER 2025-04-16 19:18 | Outpatient (BNV) | payer MEDICARE, MEDICAID, SELFPAY | END 2025-04-21 08:35 | PROVIDERS: Admitting Provider Student in an Organized Health Care Education/Training Program; Emergency Provider Emergency Medicine Emergency Medical Services; PCP Internal Medicine; Visit Provider Radiology Vascular & Interventional Radiology | DX: R91.8 Other nonspecific abnormal finding of lung field (principal); Z97.8 Presence of other specified devices | CPT/HCPCS: 71045 ==

== ENCOUNTER 2025-04-16 19:18 | Outpatient (BNV) | payer MEDICARE, MEDICAID, SELFPAY | END 2025-05-08 09:00 | PROVIDERS: Admitting Provider Student in an Organized Health Care Education/Training Program; Emergency Provider Emergency Medicine Emergency Medical Services; PCP Internal Medicine; Visit Provider Radiology Diagnostic Ultrasound | DX: R13.10 Dysphagia, unspecified (principal) | CPT/HCPCS: 74230 ==

== ENCOUNTER 2025-04-16 19:18 | Outpatient (BNV) | payer MEDICARE, MEDICAID, SELFPAY | END 2025-04-21 10:00 | PROVIDERS: Admitting Provider Student in an Organized Health Care Education/Training Program; Emergency Provider Emergency Medicine Emergency Medical Services; PCP Internal Medicine; Visit Provider Internal Medicine Cardiovascular Disease | DX: I51.89 Other ill-defined heart diseases (principal); I35.8 Other nonrheumatic aortic valve disorders; I77.810 Thoracic aortic ectasia | CPT/HCPCS: 93306 ==

== ENCOUNTER 2025-04-16 19:18 | Outpatient (BNV) | payer MEDICARE, MEDICAID, SELFPAY | END 2025-04-17 01:20 | PROVIDERS: Admitting Provider Student in an Organized Health Care Education/Training Program; Emergency Provider Emergency Medicine Emergency Medical Services; PCP Internal Medicine; Visit Provider Radiology Diagnostic Radiology | DX: R91.8 Other nonspecific abnormal finding of lung field (principal); J43.9 Emphysema, unspecified; K74.60 Unspecified cirrhosis of liver; K76.0 Fatty (change of) liver, not elsewhere classified; R18.8 Other ascites | CPT/HCPCS: 71275; 76705 ==

== ENCOUNTER 2025-04-16 19:18 | Outpatient (BNV) | payer MEDICARE, MEDICAID, SELFPAY | END 2025-05-01 10:38 | PROVIDERS: Admitting Provider Student in an Organized Health Care Education/Training Program; Emergency Provider Emergency Medicine Emergency Medical Services; PCP Internal Medicine; Visit Provider Radiology Diagnostic Radiology | DX: R14.0 Abdominal distension (gaseous) (principal); R11.10 Vomiting, unspecified | CPT/HCPCS: 74176 ==

== ENCOUNTER 2025-04-16 19:18 | Outpatient (BNV) | payer MEDICARE, MEDICAID, SELFPAY | END 2025-04-20 07:40 | PROVIDERS: Admitting Provider Student in an Organized Health Care Education/Training Program; Emergency Provider Emergency Medicine Emergency Medical Services; PCP Internal Medicine; Visit Provider Radiology Body Imaging | DX: J18.9 Pneumonia, unspecified organism (principal) | CPT/HCPCS: 71045 ==

== ENCOUNTER 2025-04-16 19:18 | Outpatient (BNV) | payer MEDICARE, MEDICAID, SELFPAY | END 2025-05-11 22:40 | PROVIDERS: Admitting Provider Student in an Organized Health Care Education/Training Program; Emergency Provider Emergency Medicine Emergency Medical Services; PCP Internal Medicine; Visit Provider Radiology Diagnostic Radiology | DX: R06.02 Shortness of breath (principal) | CPT/HCPCS: 71045 ==

== ENCOUNTER 2025-04-16 19:18 | Outpatient (BNV) | payer MEDICARE, MEDICAID, SELFPAY | END 2025-04-18 16:39 | PROVIDERS: Admitting Provider Student in an Organized Health Care Education/Training Program; Emergency Provider Emergency Medicine Emergency Medical Services; PCP Internal Medicine; Visit Provider Radiology Diagnostic Radiology | DX: J18.9 Pneumonia, unspecified organism (principal) | CPT/HCPCS: 71045 ==

== ENCOUNTER → 2025-04-16 19:18 | Outpatient (BNV) | payer MEDICARE, MEDICAID, SELFPAY | PROVIDERS: Admitting Provider Student in an Organized Health Care Education/Training Program; Emergency Provider Emergency Medicine Emergency Medical Services; PCP Internal Medicine; Visit Provider Physician Assistant Medical | DX: J96.00 Acute respiratory failure, unspecified whether with hypoxia or hypercapnia (principal); K74.60 Unspecified cirrhosis of liver; G93.40 Encephalopathy, unspecified | CPT/HCPCS: 99291 ==

== ENCOUNTER → 2025-04-16 19:18 | Outpatient (BNV) | payer MEDICARE, MEDICAID, SELFPAY | PROVIDERS: Admitting Provider Student in an Organized Health Care Education/Training Program; Emergency Provider Emergency Medicine Emergency Medical Services; PCP Internal Medicine; Visit Provider Physician Assistant Surgical | DX: K56.7 Ileus, unspecified (principal) | CPT/HCPCS: 99222; 99232 ==

== ENCOUNTER → 2025-04-16 19:18 | Outpatient (BNV) | payer MEDICARE, MEDICAID, SELFPAY | PROVIDERS: Admitting Provider Student in an Organized Health Care Education/Training Program; Emergency Provider Emergency Medicine Emergency Medical Services; PCP Internal Medicine; Visit Provider Nurse Practitioner Psychiatric/Mental Health | DX: F10.20 Alcohol dependence, uncomplicated (principal) | CPT/HCPCS: 99221 ==

== ENCOUNTER → 2025-04-16 19:18 | Outpatient (BNV) | payer MEDICARE, MEDICAID, SELFPAY | PROVIDERS: Admitting Provider Student in an Organized Health Care Education/Training Program; Emergency Provider Emergency Medicine Emergency Medical Services; PCP Internal Medicine; Visit Provider Internal Medicine | DX: R13.10 Dysphagia, unspecified (principal); K22.89 Other specified disease of esophagus | CPT/HCPCS: 43248 ==

== ENCOUNTER → 2025-04-16 19:18 | Outpatient (BNV) | payer MEDICARE, MEDICAID, SELFPAY | PROVIDERS: Admitting Provider Student in an Organized Health Care Education/Training Program; Emergency Provider Emergency Medicine Emergency Medical Services; PCP Internal Medicine; Visit Provider Internal Medicine Pulmonary Disease | DX: J69.0 Pneumonitis due to inhalation of food and vomit (principal); J96.01 Acute respiratory failure with hypoxia; F10.939 Alcohol use, unspecified with withdrawal, unspecified; R13.10 Dysphagia, unspecified; D69.6 Thrombocytopenia, unspecified | CPT/HCPCS: 99232 ==